=== PATIENT | female | born 1950 | race Caucasian/White ===

== ENCOUNTER 2023-04-17 10:15 | Outpatient (OUT) | payer OTHER, SELFPAY ==
--- NOTE | 2023-04-17 10:36 | XR_ITS ---
[address] [address] Patient Name: NU RIBEIRO MRN: [id number] date: 1950 Sex: F Assigned Patient Location: [facility] Current Patient Location: [facility] Accession/Order Number: [id number] Exam Date: 04/17/2023 10:28 Report Date: 04/17/2023 11:00 At the request of: GARO SCHNEIDER Procedure: XR chest 2V EXAM: CHEST 2 VIEWS HISTORY: Acute Bronchitis J20.9 history of asthma, cough for 6 weeks with shortness of breath. TECHNIQUE: PA and lateral views chest. COMPARISON: None. FINDINGS: The lungs are clear. There is no focal lung consolidation, pleural effusion or pneumothorax. There is mild peribronchial wall thickening most conspicuous in the right infrahilar and ultrasound scrotum ultrasound testicles and scrotum.] Ultrasound scrotum 4.2 x 3.6 x 2.8 cm 4.2 x 3.3 x 2.5 cm 0.64, 0.67 1.6 x 1.3 x 0.8 cm 1.3 x 0.8 x 0.8 cm there is a moderate right hydrocele large right hydrocele measuring 5.9 x 4.5 x 2.8 cm. Tiny left hydrocele. 1. Normal testicles and epididymides bilaterally. Negative for testicular torsion, orchitis epididymitis, or testicular mass. 2. Moderate to large right hydrocele. Moderate to large tiny left hydrocele. 3. Negative for varicocele.. Pulmonary vasculature is within normal limits. The cardiomediastinal silhouette is normal. XR/XR chest 2V IMPRESSION: 1. Probable bronchitis that may be acute or chronic. Lungs clear without consolidation or effusion. Recommend followup imaging if symptoms worsen or persist. Electronically authenticated by: SYMONE HURTADO Date: 04/17/2023 11:00
== END 2023-04-17 10:16 | disposition home or self-care (01) ==
PROVIDERS: PCP Family Medicine; Visit Provider Internal Medicine
DX: J20.9 Acute bronchitis, unspecified (principal)
CPT/HCPCS: 71046

== ENCOUNTER 2023-04-29 14:46 | Outpatient (OUT) | payer OTHER, SELFPAY ==
--- NOTE | 2023-04-29 14:49 | XR_ITS ---
[address] [address] Patient Name: NU RIBEIRO MRN: [id number] date: 1950 Sex: F Assigned Patient Location: [facility] Current Patient Location: Accession/Order Number: [id number] Exam Date: 04/29/2023 14:50 Report Date: 04/30/2023 07:41 At the request of: GARO SCHNEIDER Procedure: XR chest 2V EXAM: Chest x-ray HISTORY: . Acute Bronchitis J20.8 . COMPARISON: 04/17/2023 TECHNIQUE: Frontal and lateral chest FINDINGS: Heart and vascularity are unremarkable. Lungs are free of focal infiltrates. No effusions are noted. Mild spondylosis of the spine is noted. XR/XR chest 2V IMPRESSION: No acute heart or lung disease identified. Electronically authenticated by: DEVAN BRITT Date: 04/30/2023 07:41
== END 2023-04-29 14:47 | disposition home or self-care (01) ==
LOC: RAD 14:46
PROVIDERS: Visit Provider Internal Medicine
DX: J20.9 Acute bronchitis, unspecified (principal)
CPT/HCPCS: 71046

== ENCOUNTER 2023-04-30 15:17 | Outpatient (OUT) | payer OTHER, SELFPAY ==
--- NOTE | 2023-04-30 15:20 | CT_ITS ---
The [address] [address] Patient Name: NU RIBEIRO MRN: [id number] date: 1950 Sex: F Assigned Patient Location: CT Current Patient Location: CT Accession/Order Number: [id number] Exam Date: 04/30/2023 15:30 Report Date: 04/30/2023 16:14 At the request of: GARO SCHNEIDER Procedure: CT chest wo con EXAM: CT chest wo con HISTORY: chronic cough R05.3 COMPARISON: Chest x-ray dated 04/29/[address] dated 03/21/2021. TECHNIQUE: Multiple axial images of the chest are obtained without the use of IV contrast material. Coronal and sagittal reformatted sequences are submitted for review. FINDINGS: The heart size is normal. There is no evidence for pericardial effusion. The thoracic aorta is normal in course and caliber. There is no evidence for thoracic aortic aneurysm. There is no evidence for pleural effusion or pneumothorax. No significant enlarged hilar, mediastinal or axillary adenopathy is seen. A 2 mm nonspecific noncalcified subpleural nodule is seen in the posteromedial right lung base, which was not definitely visualized on prior chest CT of 03/21/2021. No focal consolidation is seen. The visual chest wall appears unremarkable. No acute abnormality is seen in the visualized upper abdomen. No acute osseous abnormality seen. CT/CT chest wo con IMPRESSION: No evidence for acute abnormality. A 2 mm nonspecific noncalcified subpleural nodule is seen in the posteromedial right lung base, which was not definitely visualized on prior chest CT of 03/21/2021. No focal consolidation is seen. Electronically authenticated by: TARA PHELAN Date: 04/30/2023 16:14
== END 2023-04-30 15:18 | disposition home or self-care (01) ==
LOC: CT 15:17
PROVIDERS: Visit Provider Internal Medicine
DX: R05.3 Chronic cough (principal)
CPT/HCPCS: 71250

== ENCOUNTER 2023-06-06 13:31 | Outpatient (OUT) | payer OTHER, SELFPAY ==
--- OUTSIDE RECORDS SUMMARY | 2023-06-06 13:36 | XMS_ITS | CCD ---
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 Name Role Phone TRIPP PORTILLO Unavailable Unavailable LAZ PORTILLO Unavailable Unavailabl TRIPP Herrera Unavailable Unavailable LAZ PORTILLO Unavailable Unavailabl Sulaiman Osorio Primary Care Provider [phone] Laz Portillo Primary Care Provider Laz Portillo MD Primary Care Provider Laz Portillo MD Primary Care Provider Laz Portillo MD Primary Care Provi jesus YIN, DR ADORNO Primary Care Unavailable SHERRY WILKINSON Admitting Unavailable SHERRY WILKINSON Attending Unavailable KIM PHELAN Consulting Unavailable DEREK VALDEZ Consulting Unavailable DR ALLYSSA LOPEZ Admitting Unavailable JOHN, DR ALLYSSA Romero Attending Unavailable YIN, DR ADORNO Primary Care Unavailable DR KRANTHI NIXON Consulting Unavailable DR ALLYSSA LOPEZ Consulting Unavailable SAMSA ., GARO Admitting Unavailable SAMSA ., GARO Attending Unavailable YIN, DR ADORNO Primary Care Unavailable SAMSA ., GARO Consulting Unavailable Татьяна Guerrero Unavailable Laz Portillo MD Primary Care Provider Laz Portillo MD Primary Care Provi jesus LAZ PORTILLO Primary Care Unavailabl e BASURTO, JOSESITO Referring Unavailable BASURTO, JOSESITO Admitting Unavailable BASURTO, JOSESITO Attending Unavailable LAZ PORTILLO Primary Care Unavailabl e BASURTO, JOSESITO Admitting Unavailable BASURTO, JOSESITO Attending Unavailable [facility] Primary Care Unavailabl e GATO CANO Referring Unavailable [facility] Primary Care Unava ilable GATO CANO Referring Unavailable ALLYSSA LOPEZ Attending Unavailable [facility] Unava ilable [facility] Primary Care Unava ilable GATO CANO Referring Unavailable GATO CANO Attending Unavailable [facility] Primary Care Unava ilable Medications Current Medications Medication Drug Class(es) Dates Sig (Normalized) Sig (Original) calcium chloride 0.0014 meq/ml / potassium chloride 0.004 meq/ml / sodium chloride 0.103 meq/ml / sodium lactate 0.028 meq/ml injectable solution (2 sources) Start: 08-16-2022 lactated ringers IV soln infusion Start: 07-12-2022 lactated ringe rs IV soln infusion cephalexin 500 mg oral capsule (2 sources) Cephalosporin Antibacterial Start: 07-08-2018 cephALEXin (KEFLEX) 500 MG capsule Indications: Malignant neoplasm of upper-outer quadrant of left female breast, unspecified estrogen receptor status (HCC) 500 mgTake three times daily 21 capsule 0 07/08/2018 Active ciprofloxacin 3 mg/ml ophthalmic solution (2 sources) Quinolone Antimicrobial Start: 08-16-2022 ciprofloxacin (CILOXAN) 0.3 % ophthalmic solution 1 drop Start: 07-12-2022 End: 07-12-2022 ciprofloxacin (CILOXAN) 0.3 % ophthalmic solution 1 drop 1 ml diphenhydrAMINE hydrochloride 50 mg/ml cartridge (1 source) Histamine-1 Receptor Antagonist Start: 08-16-2022 End: 08-17-2022 diphenhydrAMINE (BENADRYL) injection 12.5 mg dorzolamide 20 mg/ml ophthalmic solution (1 source) Carbonic Anhydrase Inhibitor Dorzolamide HCl 2 % Ophthalmic for 25 Days Active 1 ml fentaNYL 0.05 mg/ml injection (2 sources) Opioid Agonist Start: 08-16-2022 fentaNYL (SUBL IMAZE) injection 50 mcg Start: 08-16-2022 fentaNYL (SUBL IMAZE) injection 25 mcg fluticasone propionate 0.05 mg/actuat metered dose nasal spray (1 source) Corticosteroid Start: 05-30-2022 take 2 spray(s) nasal route once daily Fluticasone Propionate 50 MCG/ACT 2 sprays Nasally Once a day for 14 day(s) May, Active ketorolac tromethamine 5 mg/ml ophthalmic solution (2 sources) Nonsteroidal Anti-inflammatory Drug, Cyclooxygenase Inhibitor Start: 08-16-2022 ketorolac (ACULAR) 0.5 % ophthalmic solution 1 drop Start: 07-12-2022 End: 07-12-2022 ketorolac (ACULAR) 0.5 % oph thalmic solution 1 drop LORazepam 0.5 mg oral tablet (1 source) Benzodiazepine Start: 11-25-2020 End: 12-25-2020 take 1 tablet by mouth twice daily LORazepam (ATIVAN) 0.5 MG tablet Indications: Anxiety Take 1 tablet by mouth 2 times daily for 30 days. 60 tablet 0 11/25/2020 12/25/2020 Active omeprazole 10 mg delayed release oral capsule (10 sources) Proton Pump Inhibitor Start: 04-27-2021 take 1 capsule by mouth once daily omeprazole (PRILOSEC) 10 MG delayed release capsule Take 1 capsule by mouth daily 90 capsule 0 04/27/2021 Active take 1 capsule by mouth once adam ly omeprazole (PRILOSEC) 10 MG delayed release capsule Take 10 mg by mouth daily 0 Active 2 ml ondansetron 2 mg/ml injection (1 source) Serotonin-3 Receptor Antagonist Start: 08-16-2022 End: 08-17-2022 ondansetron (ZOFRAN) injection 4 mg phenylephrine hydrochloride 25 mg/ml ophthalmic solution (2 sources) alpha-1 Adrenergic Agonist Start: 08-16-2022 phenylephrine (MYDFRIN) 2.5 % ophthalmic solution 1 drop Start: 07-12-2022 End: 07-12-2022 phenylephrine (MYDFRIN) 2.5 % ophthalmic solution 1 drop predniSONE 20 mg oral tablet (1 source) Start: 05-30-2022 take 1 tablet by mouth every twelve hours predniSONE 20 MG 1 tablet Orally 2 times a day for 5 day(s) May, Active 5 ml sodium chloride 9 mg/ml injection (15 sources) Start: 08-16-2022 sodium chlorid e flush 0.9 % injection 5-40 mL Start: 08-16-2022 0.9 % sodium c hloride infusion Start: 08-16-2022 sodium chlorid e flush 0.9 % injection 5-40 mL Start: 07-12-2022 0.9 % sodium c hloride infusion Start: 07-12-2022 sodium chlorid e flush 0.9 % injection 5-40 mL tetracaine hydrochloride 5 mg/ml ophthalmic solution (2 sources) Yoko Local Anesthetic Start: 08-16-2022 tetracaine (TETRAVISC) 0.5 % ophthalmic solution 1 drop Start: 07-12-2022 End: 07-12-2022 tetracaine (TETRAVISC) 0.5 % ophthalmic solution 1 drop tropicamide 10 mg/ml ophthalmic solution (2 sources) Anticholinergic Start: 08-16-2022 tropicamide (M YDRIACYL) 1 % ophthalmic solution 1 drop Start: 07-12-2022 End: 07-12-2022 tropicamide (MYDRIACYL) 1 % ophthalmic solution 1 drop valACYclovir 500 mg oral tablet (2 sources) Herpesvirus Nucleoside Analog DNA Polymerase Inhibitor, Herpes Simplex Virus Nucleoside Analog DNA Polymerase Inhibitor, Herpes Zoster Virus Nucleoside Analog DNA Polymerase Inhibitor Start: 10-04-2018 take 1 tablet by mouth every twelve hours valACYclovir (VALTREX) 500 MG tablet TAKE 1 TABLET BY MOUTH EVERY 12 HOURS FOR 7 DAYS 0 10/04/2018 Active Completed/Discontinued Medications Medication Drug Class(es) Dates Sig (Normalized) Sig (Original) [id number] 200 actuat albuterol 0.09 mg/actuat metered dose inhaler (13 sources) beta2-Adrenergic Agonist take 2 puff(s) by inhalation every four hours as needed for wheezing albuterol sulfate HFA 108 (90 Base) MCG/ACT inhaler Inhale 2 puffs into the lungs every 4 hours as needed for Wheezing or Shortness of Breath 0 Suspended take 2 puff(s) by in halation every four hours as needed for wheezing albuterol sulfate HFA 108 (90 Base) MCG/ACT inhaler Inhale 2 puffs into the lungs every 4 hours as needed for Wheezing or Shortness of Breath 0 Active anastrozole 1 mg oral tablet (18 sources) Aromatase Inhibitor Start: 08-07-2018 End: 07-20-2022 take 1 tablet by mouth once daily anastrozole (ARIMIDEX) 1 mg tablet Indications: Malignant neoplasm of upper-outer quadrant of left breast in female, estrogen receptor positive (HCC) Take 1 tablet by mouth once daily. 90 tablet 3 07/20/2022 Active Comment on above: Take 1 tablet by ramon th once daily. Apoaequorin 10 MG CAPS (1 source) Start: 07-25-2022 End: 10-23-2022 take 1 capsule by mouth once daily Apoaequorin 10 MG CAPS Indications: Forgetfulness Take 10 mg by mouth daily 90 capsule 1 07/25/2022 10/23/2022 Suspended 5 ml bupivacaine hydrochloride 5 mg/ml injection (2 sources) Amide Local Anesthetic Start: 08-16-2022 End: 08-16-2022 bupivacaine (PF) (MARCAINE) 0.5 % injection 1 mg Start: 07-12-2022 End: 07-12-2022 bupivacaine (PF) (MARCAINE) 0.5 % injection 1 mg calcium carbonate 625 mg / cholecalciferol 125 unt oral tablet (2 sources) Vitamin D Start: 07-20-2022 take 1 tablet by mouth twice daily calcium-cholecalciferol, D3, (OSCAL+D 250) 250 mg-3.125 mcg (125 unit) per tablet Indications: Malignant neoplasm of upper-outer quadrant of left breast in female, estrogen receptor positive (HCC) , halfway (current) use of aromatase inhibitors Take 1 tablet by mouth twice daily. 180 tablet 3 07/20/2022 Active Comment on above: Take 1 tablet by ramon th twice daily. cranberry extract-multivitami n 500 mg/5 gram pwpk (5 sources) cranberry extract-multivitamin 500 mg/5 gram pwpk Take by mouth. 0 Active Comment on above: Take by mouth. Cranberry preparation (13 sources) Non-Standardiz ed Food Allergenic Extract, Non-Standardiz ed Plant Allergenic Extract take 1 tablet by mouth once daily CRANBERRY PO Take 1 tablet by mouth daily 0 Suspended take 1 tablet by mouth once candi y CRANBERRY PO Take 1 tablet by mouth daily 0 Active FLUoxetine 40 mg oral capsule (17 sources) Serotonin Reuptake Inhibitor Start: 04-11-2018 End: 08-13-2022 take 1 capsule by mouth in the morning FLUoxetine (PROZAC) 40 MG capsule Take 1 capsule by mouth in the morning 90 capsule 0 05/15/2022 Suspended Comment on above: Take 40 mg by mouth. 120 actuat fluticasone propionate 0.115 mg/actuat / salmeterol 0.021 mg/actuat metered dose inhaler (5 sources) Corticosteroid, beta2-Adrenergic Agonist Start: 09-20-2021 take 2 puff(s) by mouth twice daily ADVAIR HFA 115-21 mcg/actuation inhaler INHALE 2 PUFFS BY MOUTH TWICE DAILY RINSE MOUTH AFTER USE 0 06/20/2022 Active Comment on above: INHALE 2 PUFFS BY [facility] TWICE DAILY RINSE MOUTH AFTER USE hydroCHLOROthiazide 12.5 mg / lisinopril 10 mg oral tablet (16 sources) Thiazide Diuretic, Angiotensin Converting Enzyme Inhibitor Start: 07-25-2022 take 1 tablet by mouth once daily lisinopril-hydro CHLOROthiazide (PRINZIDE;ZESTOR ETIC) 10-12.5 MG per tablet Indications: Hypertension, unspecified type Take 1 tablet by mouth daily 90 tablet 1 07/25/2022 Suspended Start: 04-11-2018 take 1 tablet by ramon once daily lisinopril-hydrochlorothiazide (PRINZIDE,ZESTORETIC) 20-12.5 mg per tablet Take 1 tablet by mouth once daily. 0 04/11/2018 Active Comment on above: Take 1 tablet by ramon once daily. ibuprofen 800 mg oral tablet (14 sources) Nonsteroidal Anti-inflammatory Drug Start: 09-24-2016 ibuprofen (ADVIL;MOTRIN) 800 MG tablet Indications: Chronic joint pain Daily for back pain 180 tablet 0 04/26/2022 Suspended 10 ml lidocaine hydrochloride 10 mg/ml injection (2 sources) Antiarrhythmic, Amide Local Anesthetic Start: 08-16-2022 End: 08-16-2022 lidocaine PF 1 % injection 1 mL Start: 07-12-2022 End: 07-12-2022 lidocaine PF 1 % injection 1 mL lisinopril 40 mg oral tablet (2 sources) Angiotensin Converting Enzyme Inhibitor lisinopril (ZESTRIL) 40 mg tablet Take 40 mg by mouth. 0 Active Comment on above: Take 40 mg by mouth. 24 hr metoprolol succinate 25 mg extended release oral tablet (4 sources) beta-Adrenergic Paz Start: take 1 tablet by mouth once daily metoprolol succinate (TOPROL XL) 25 MG extended release tablet Indications: Hypertension, unspecified type Take 1 tablet by mouth daily 30 tablet 3 07/25/2022 Suspended Start: 09-28-2020 take 1 tablet by ramon th in the morning metoprolol tartrate (LOPRESSOR) 25 MG tablet Take 1 tablet by mouth in the morning and 1 tablet before bedtime. 180 tablet 0 12/22/2021 Active multivitamin tablet (5 sources) multivitamin tab let Take by mouth. 0 Active Comment on above: Take by mouth. Problems Active Problems Problem Classification Problem Date Documented Da te Episodic/Chronic Asthma (4 sources) Severe persistent asthma, uncomplicated; Translations: [SEVERE PERSIST ASTHMA UNCOMPLICATED] Onset: 02-20-2022 Chronic Cancer of breast (20 sources) Malignant neoplasm of upper-outer quadrant of female breast; Translations: [Malignant neoplasm of upper-outer quadrant of left female breast] Onset: 06-24-2018 02-03-2020 Chronic Cancer of breast (1 source) Intraductal carcinoma in situ of left breast; Translations: [Cancer of breast, intraductal, left] Cataract (4 sources) Unspecified cataract; Translations: [Age-related nuclear cataract, left eye] Onset: 07-12-2022 Chronic Cataract (2 sources) Cataract; Translations: [LEFT EYE NUCLEAR SCLEROTIC CATARACT] Onset: 07-05-2022 Disorders of lipid metabolism (13 sources) Hyperlipidemia; Translations: [Hyperlipidemia, unspecified] 01-23-2013 Chronic Essential hypertension (19 sources) Hypertensive disorder; Translations: [Essential (primary) hypertension] Onset: 06-24-2018 01-23-2013 Chronic Malaise and fatigue (2 sources) Fatigue; Translations: [Other fatigue] Episodic Mood disorders (13 sources) Depressive disorder; Translations: [Major depressive disorder, single episode, unspecified] 01-23-2013 Chronic Other bone disease and musculoskeletal deformities (8 sources) Osteopenia; Translations: [Other specified disorders of bone density and structure, unspecified site] Onset: 03-23-2021 Episodic Other connective tissue disease (1 source) Swelling of limb; Translations: [Swelling of limb] Episodic Other non-traumatic joint disorders (1 source) Rotator cuff arthropathy of left shoulder; Translations: [Rotator cuff arthropathy of left shoulder] Other screening for suspected conditions (not mental disorders or infectious disease) (1 source) Mammography abnormal; Translations: [Abnormal mammogram] Episodic Other upper respiratory infections (1 source) Acute sinusitis, unspecified Episodic Syncope (1 source) Syncope; Translations: [Syncope and collapse] Episodic Unclassified (1 source) Unspecified lump in the left breast, unspecified quadrant; Translations: [Unspecified lump in the left breast, unspecified quadrant] Onset: 12-26-2017 Past or Other Problems Problem Classification Problem Date Documented Da te Episodic/Chronic Cancer of breast (1 source) History of malignant neoplasm of breast; Translations: [History of breast cancer] Episodic E Codes: Struck by; against (1 source) Striking against or struck by other objects, initial encounter; Translations: [STRIKING AGNST/STRUCK OTH OBJ INIT] Onset: 01-30-2022 Episodic Fracture of lower limb (2 sources) Nondisplaced fracture of third metatarsal bone, left foot, initial encounter for closed fracture; Translations: [Nondisplaced fracture of fourth metatarsal bone, left foot, initial encounter for closed fracture] Onset: 01-30-2022 Episodic Nonmalignant breast conditions (1 source) Breast lump; Translations: [Lump in female breast] Episodic Other bone disease and musculoskeletal deformities (1 source) Other specified disorders of bone density and structure, unspecified site; Translations: [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 therapy] Onset: 03-23-2021 Episodic Other connective tissue disease (3 sources) Pain in left foot; Translations: [PAIN IN LEFT FOOT] Onset: 01-28-2022 Episodic Residual codes; unclassified (2 sources) Estrogen receptor positive status [ER+]; Translations: [ESTROGEN RECEPTOR POSITIVE STATUS] Onset: 06-24-2018 Episodic Unclassified (1 source) Contact with and (suspected) exposure to covid-19 Z20.822 Results Test Name Value Interpretation Reference Range Facility CBC W Auto Differential pane l (Bld)on 01-11-2023 Basophils (Bld) [#/Vol] 0.05 10*3/uL Normal <0.11 [facility] Comment on above: Order Comment: Speci men Type: BLOOD SPECIMEN Ordering Facility: [facility] Address: [address] [place] [id number] Performed By: #### 5 7021-8 #### [facility] CLIA [id number] [address] [place] [address]397 Basophils/100 WBC (Bld) 0.7 % Normal [facility] Comment on above: Order Comment: Speci men Type: BLOOD SPECIMEN Ordering Facility: [facility] Address: [address] [address] Performed By: #### 5 7021-8 #### [facility] CLIA [id number] [address] [place] [address] Differential cell count method Nom (Bld) Auto Normal [facility] Comment on above: Order Comment: Speci men Type: BLOOD SPECIMEN Ordering Facility: [facility] Address: [address] [address] Performed By: #### 5 7021-8 #### [facility] CLIA [id number] [address] [place] [address] Eosinophils (Bld) [#/Vol] 0.50 10*3/uL High <0.46 [facility] Comment on above: Order Comment: Speci men Type: BLOOD SPECIMEN Ordering Facility: [facility] Address: [address] [address] Performed By: #### 5 7021-8 #### [facility] CLIA [id number] [address] [place] [address]298 Eosinophils/100 WBC (Bld) 7.4 % Normal [facility] Comment on above: Order Comment: Speci men Type: BLOOD SPECIMEN Ordering Facility: [facility] Address: [address] [address] Performed By: #### 5 7021-8 #### [facility] CLIA [id number] [address] [place] [address] Erythrocyte distribution width (RBC) [Ratio] 12.8 % Normal 11.5-15.0 [facility] Comment on above: Order Comment: Speci men Type: BLOOD SPECIMEN Ordering Facility: [facility] Address: [address] [address] Performed By: #### 5 7021-8 #### [facility] CLIA [id number] [address] [place] [address] Hematocrit (Bld) [Volume fraction] 36.8 % Normal 36.0-46.0 [facility] Comment on above: Order Comment: Speci men Type: BLOOD SPECIMEN Ordering Facility: [facility] Address: [address] [place] [address] Performed By: #### 5 7021-8 #### [facility] CLIA [id number] [address] [place] [address] Hemoglobin (Bld) [Mass/Vol] 12.1 g/dL Normal 11.5-15.5 [facility] Comment on above: Order Comment: Speci men Type: BLOOD SPECIMEN Ordering Facility: [facility] Address: [address] [place] [address] Performed By: #### 5 7021-8 #### [facility] CLIA [id number] [address] [place] [address]57 Immature granulocytes (Bld) [#/Vol] 10*3/uL Normal <0.10 [facility] Comment on above: Order Comment: Speci men Type: BLOOD SPECIMEN Ordering Facility: [facility] Address: [address] [place] [address] Performed By: #### 5 7021-8 #### [facility] CLIA [id number] [address] [place] [address]771 Immature granulocytes/100 WBC (Bld) 0.1 % Normal [facility] Comment on above: Order Comment: Speci men Type: BLOOD SPECIMEN Ordering Facility: [facility] Address: [address] [place] [address] Performed By: #### 5 7021-8 #### [facility] CLIA [id number] [address] [place] [address]9906 Lymphocytes (Bld) [#/Vol] 1.84 10*3/uL Normal 1.00-4.00 [facility] Comment on above: Order Comment: Speci men Type: BLOOD SPECIMEN Ordering Facility: [facility] Address: [address] [address] Performed By: #### 5 7021-8 #### [facility] CLIA [id number] [address] [place] [address]84 Lymphocytes/100 WBC (Bld) 27.3 % Normal [facility] Comment on above: Order Comment: Speci men Type: BLOOD SPECIMEN Ordering Facility: [facility] Address: [address] [address] Performed By: #### 5 7021-8 #### [facility] CLIA [id number] [address] [place] [address] 62188 MCH (RBC) [Entitic mass] 28.7 pg Normal 26.0-34.0 [facility] Comment on above: Order Comment: Speci men Type: BLOOD SPECIMEN Ordering Facility: [facility] Address: [address] [address] Performed By: #### 5 7021-8 #### [facility] CLIA [id number] [address] [place] [address] 25849 MCHC (RBC) [Mass/Vol] 32.9 g/dL Normal 30.5-36.0 [facility] Comment on above: Order Comment: Speci men Type: BLOOD SPECIMEN Ordering Facility: [facility] Address: [address] [address] Performed By: #### 5 7021-8 #### [facility] CLIA [id number] [address] [place] [address] 25898 MCV (RBC) [Entitic vol] 87.4 fL Normal 80.0-100.0 [facility] Comment on above: Order Comment: Speci men Type: BLOOD SPECIMEN Ordering Facility: [facility] Address: [address] [address] Performed By: #### 5 7021-8 #### [facility] CLIA [id number] [address] [place] [address] 72167 Monocytes (Bld) [#/Vol] 0.44 10*3/uL Normal <0.87 [facility] Comment on above: Order Comment: Speci men Type: BLOOD SPECIMEN Ordering Facility: [facility] Address: [address] [address] Performed By: #### 5 7021-8 #### [facility] CLIA [id number] [address] [place] [address] 00766 Monocytes/100 WBC (Bld) 6.5 % Normal [facility] Comment on above: Order Comment: Speci men Type: BLOOD SPECIMEN Ordering Facility: [facility] Address: [address] [address] Performed By: #### 5 7021-8 #### [facility] CLIA [id number] [address] [place] [address] 27692 Neutrophils (Bld) [#/Vol] 3.89 10*3/uL Normal 1.45-7.50 [facility] Comment on above: Order Comment: Speci men Type: BLOOD SPECIMEN Ordering Facility: [facility] Address: [address] [address] Performed By: #### 5 7021-8 #### [facility] CLIA [id number] [address] [place] [address] 16393 Neutrophils/100 WBC (Bld) 58.0 % Normal [facility] Comment on above: Order Comment: Speci men Type: BLOOD SPECIMEN Ordering Facility: [facility] Address: [address] Performed By: #### 5 7021-8 #### [facility] CLIA [id number] [address] [place] [address] 30980 Nucleated RBC (Bld) [#/Vol] 10*3/uL Normal <0.01 [facility] Comment on above: Order Comment: Speci men Type: BLOOD SPECIMEN Ordering Facility: [facility] Address: [address] Performed By: #### 5 7021-8 #### [facility] CLIA [id number] [address] [place] [address] Nucleated RBC/100 WBC (Bld) [Ratio] 0.0 /100 WBC Normal [facility] Comment on above: Order Comment: Speci men Type: BLOOD SPECIMEN Ordering Facility: [facility] Address: [address] [place] [address] Performed By: #### 5 7021-8 #### [facility] CLIA [id number] [address] [place] [address] 00384 Platelet mean volume (Bld) [Entitic vol] 9.6 fL Normal 9.0-12.7 [facility] Comment on above: Order Comment: Speci men Type: BLOOD SPECIMEN Ordering Facility: [facility] Address: [address] [place] [address] Performed By: #### 5 7021-8 #### [facility] CLIA [id number] [address] [place] [address] 15874 Platelets (Bld) [#/Vol] 226 10*3/uL Normal 150-400 [facility] Comment on above: Order Comment: Speci men Type: BLOOD SPECIMEN Ordering Facility: [facility] Address: [address] [place] [address] Performed By: #### 5 7021-8 #### [facility] CLIA [id number] [address] [place] [address] 52119 RBC (Bld) [#/Vol] 4.21 10*6/uL Normal 3.90-5.20 [facility] Comment on above: Order Comment: Speci men Type: BLOOD SPECIMEN Ordering Facility: [facility] Address: [address] [place] [address] Performed By: #### 5 7021-8 #### [facility] CLIA [id number] [address] [place] [address] 13712 WBC (Bld) [#/Vol] 6.73 10*3/uL Normal 3.70-11.00 [facility] Comment on above: Order Comment: Speci men Type: BLOOD SPECIMEN Ordering Facility: [facility] Address: [place] [address] Performed By: #### 5 7021-8 #### [facility] CLIA [id number] [address] [place] [address] 42365 CNOVSPon 01-11-2023 CNOVSP Visit (SP) Office (HEMASA) -------- NATASHA RIBEIRO ([id number]) 1950 F Date Time Provider Department 01/11/23 2:00 PM ALLYSSA LOPEZ During your visit today, we recorded the following information about you: Temperature Pulse Respiration Blood pressure 97.7 degrees 75/minute 16/minute 125/59 Weight Height 73.8 kg 1.613 m Allyssa Lopez APRN.[employer] 01/11/2023 3:21 PM Signed PATIENT NAME: Natasha Ribeiro DATE: January 11, 2023 (John) Some elements in this clinic note that are critical to medical decision making have been carefully reviewed and included from a prior clinic note dated: July 20, 2022. (Dr. Cano) PRIMARY CARE PHYSICIAN: Dr. Laz Portillo OTHER PHYSICIANS: Dr. Bronson, Dr. Wyman, Dr. Lake CC: This is a 72 year old female with a history of breast cancer s/p adjuvant RT 09/25/18 ASSESSMENT: 1. Malignant neoplasm of upper-outer quadrant of left breast in female, estrogen receptor positive (HCC) - ICD9: 174.4, V86.0, ICD10: C50.412 Stage IA (T1b, N0, M0) invasive ductal carcinoma of the left breast diagnosed May 2018 (lumpectomy 05/29/2018). Pathology on the resected specimen revealed a grade 1 multifocal invasive ductal carcinoma, largest invasive component 0.8 cm. ER/VA positive, HER-2 negative, Oncotype recurrence score low (8). Surgical margins negative. The patient underwent a left axillary sentinel node procedure 07/08/2018, and 0 of 15 lymph nodes were involved. Monoallelic mutation of PALB2 gene - ICD9: V84.01, V84.89, V84.09, ICD10: Z15.01, Z15.89, Z15.09 Heterozygous PALB2 mutation of unclear significance identified on INVITAE genetic analysis 07/08/2018. Per medical genetics this mutation is not considered deleterious. Because of her excellent prognosis it was felt that adjuvant chemotherapy was not indicated. The patient received adjuvant radiation therapy 08/27/2018 - 09/25/2018. The patient started adjuvant hormonal therapy with anastrozole 1 mg daily September 2018, with plans to take for 5 years as tolerated. At this time she has no evidence of disease. 2. Endocrine therapy induced osteopenia - 02/2021 PLAN: Continue Arimidex. Will start Zometa today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 ZXM7 I76mx4P6AYQjNQOrOHA7wZI6 lX0wqYoqfjlocSKfyFfhipEn bZlxHUwsZOxkB193ERDfgEak PlBh eWVyOjwvdGQ+HL57mf65O3Lo PyfkVsf2LMOnTMG7eTY7zA8r FVNbGUjuz1U1lEZ9J5ErfxVw ci1j b2x (more content not included)... [facility] Coding Summary HTMLBase 64 DddlyvqhRRr4bUs+PGhlYWQ+ GR3NLZQmN98pvTOisD3WG1iD LM6RNHQJPZEAPD0NTU5czTS8 QUbgM6ZrryGv JxcntZNsNS67LSy0GCQ2tOua ZQuqlF2naMUjO0e8YkKcLH79 uC63ELcrXRJmZbR1LtFoorpa bWFy A2jgLsWjdZJyPhl+PHRhYmxl IHdpZHRoPScxMDAlJyBzdHls IZ7wMq2mCLVqEFWdyIjkqRXq OiBj g0jyLBUvNJeuCC0hpKmhI9Xp sOR0OEKpm3i8Ea34qKG+PHRk THK6bIecRZmdv582XjXlm3wz IDM3 mQYnABksIOK1I11xv3I3WNFj PAFcTAL0kZF4oZ6gbGkrwsud C4XisYYsPgP4TZY6hWIifA1t bGln djgfgL3rYet+H68GRD8ZDTOG IH4MHay4H0NwLeayyYK+PC90 CAVlHD18rTCdwTBxu4kmbVu1 JzEw ZHDpUVS7wUdkVIsci1YxZJSf M12epSYoc6Z6AHGotHrnkKTy FcWtlYB5zN3oRMqwnklpc3ua dzsn Znfwv5pwdn01fO06V62jXBhd ONKePZY0SPCkNWFklMlrdm2e iR1wPv3+XTowy7luk6rasWk0 IjIw KFGtdzWtfMxxTOX0j8IcTb11 F9DjzAarw1PkBzn8qi11kCWb u5P0mGR2EOndNYUyeG1tMRiu ZnQ6 YFQuScGbgK38wXIkZLjiPb5a cCmwzRspZE1cUXQbyhrkVGZr hD1xZCUnsQLajXolLG6sETFt bjtm f071GhSpXNT2BULoyFRdR7Ve jG3lWbDlQUVeGRWzF0BjgEMo PFhyV917UHwmIjT7JOYizhGt Y2Fs HRPsjVwlQjL3m4Y2Lj9Rb1Kj ktjfDNA9MJsoSRIkChU2HhKm OgY7Y9YdYqx7AZWzvQirOC6j J3Bh CRBvwcotkfkhcZG2JHHyTTMs tP93fSDoIJgdLi4cj8E3o509 WEAiLRHftZ50Mi0fiDyoUTPz dCBU gK4gqdfyo1hnusyrGsEkFETo HQs6CTp3SYVmzOyeAqAtHTX8 HkB0YFY2sYCkaU4csBtojqbe dG9w Oyc+J08lfO5qNWL5CLH4zrkv KDIudjSsBD22HS71E4PsJvjy dGFibGU+UUXhpyEqpEkrQP6k YmFj s7bog3AdXWnuO8FuFHFqMKnw Ojc1DTZkBBL3nCA3pE7nTFUa UCzhx6F5iVE2Q4OsrjJdkb2n b2xs LAKtBYyoD85viTIje0C6BJVj mMH5MIVxdEdgExBabA03Shu+ JGIndZaus0TmAzomj9dwi1hc dGg9 QkWlVXIqmgRebVduNPH2j5Fv Xf96D21qXBfdIJXgVJKiABAb KIBtpIpxqg4zuE8iLv5+PGNv bCB3 yBR6eW9jYWHlPvI2QZilP106 NgRfgTMfUejbc0yzr7wwfRc3 LhNmTTXkbdRooLorIEK5s7Pb Lz48 N04dZPtuMPXrBHFoPDHqOVGj wXojvl3epJ3xHm5+FS2mi6vc es47gY50vKD+ZZBpURW7rObm PSdw KLGhrO6mEOkbMrA7APXfHqFr gO57dQAdNUxfJd3mdDbxaWev MS2xULBmxcxgg580QmRxa7bl IDEw lUYsKVmhGIT6L63ns5N1PCGk MQHuRYI1dGT1rF6eoMxokvxu bGVmdDsgdmVydGljYWwtYWxp Z246 IHRvcDsnPlBhdGllbnQgTmFt PXg3B3SaIhx3QZVbxJlmFJ0t lNEnKZuwVy5aqYzagSbsUU2d NTBp sjyin635FrOaa6tfJKYohAWy YSezCUT4M54rz6R6DLSfYUHz XXR1sZG6oG8wjHpfkdafcMKf dDsg ptIxuTzcZZzuMDazO440PRXv bDepNpGtzbMoEUFzgMZ8ZC10 MB77rUJkx9U4uKG4O9IbALCp bmct phxauBT4OYJlZBEgcL53Rr5g zJtzLo8uDXHjXBC5ZSDllRMu Q0NudG4hWwKvRMPzTCVgZ8Xb eHQt WRfnV968YJcpOeT4WAGvezTn P7UmLGQhdSdpImC5o7N1Qo8J E3L9XJ12CB41sJZyf5F8rWR2 J3Bh DGHxjtwxfdvhbQH0HYMiUNUo mZ39Sh0shTsfNa3fGLWfNEL3 WAAdlLRtP0QjnG2lWrMmTSTu MDAw G5FmnXPcTJckB721ANsiKpS2 IFDomtImD0WiPYPweHbrRzR8 r0J4Ms6GSLt5VJ99LH21qQVw c3R5 kBI3O1KgVFLslwhbgrmbtRT8 YUGmATWkkF94Ta5loByoVr7j NELdJGI3JQNscIFxW3SfxN9k OiAj HSUxXPPtX7PehWMmILmnI378 KRxbZaK9VFClqxIoQ1YwQEVh sNzbZjR9g1W6Pu5BTCJyIA93 IFR5 sYO4AO71EX65Z4NmBnpgmZEx bGU+PHRhYmxlIHdpZHRoPScx AAHqOxRjrMhgNB1kDx3jNKSv LWNv jBigrQDyMaXgh4xrZGDsOHvh WI6phGpuD5QkbJY7NDPki8e0 Jt48J27hJ0EqwWU+PGNvbCB3 aWR0 iN1dCjUoHjK9UGurI524VcIk dLBsUgpfe6hyr0tpjGt5QxC0 XJSkueKwdJpyFUL2f3FrMe09 Y29s IHdpZHRoPSIxNSUiIHZhbGln hq4kcW6aKo7+AOExlJH0eXS8 nG5bRcVsTsI0OMuyM543UmIx cCIv Adkhc2cac4ghsCa2CeGhBQRt miFldOaoRQK8o0XuDa00I7Ro vCnus7QbHcz8tn94rREdo6Q7 bGU9 T5LwBFNjtnmsrLNqpAxhEA7b WHTnarhtJVVjbZ3rQWTsZ6a5 PpBjMyC2ZJbjS2TvhnH2NVMg cHQg MKlrMBU7U70gq0C9DLOfKDUk IZU0gSI6fY9xbOmhsajfaMBv bRjhdfJbhFnqDKtmPRdmE435 IHRv dLftBMFmqN5zGHZwbYVcrSwt GU1hZAHvboraVysHTkUYOETM NXTMBUMNMW5PQTLQNQ86GD64 dGQg c5J6qUS2L4JwVINofqilbfsm qKW7XSNaFTAniB33tNEwDXlw Vj5bq0L8j865QXVpKZHstR16 Zm9u zXsiMTBvsCXPtY4hdufss0qg kiviXpRuNUHcWNq8INg3PJUj jWuyUzVjPSW6XrS9YLT5bRVi bC1h aCesqurvhT9sWmz+MTAvMTIv VCw2XRykgQF+AYOwKXD0hNzf FShgLHScyJ8nCHOcY7t8AwFm LjA1 WHggX9ZbGIBsavyyXu24iR7f ZaCzTyN2JMfzP1RkbkN6HUQl hWXxMNozDBL9K53vm3O8YEDv MDAw HIH9fHY5zB4lwBrmyuxizJXx sVcwyiFadYumFLjtNQvbT525 IWBxnChjVrayGPylOHQcCB81 ZD48 rWOer4V8bRZ2Y8KdATOyvsjg swbxxYY2HTRsGQJktE18xFLg EYwxXq4ww9L3t518SDPdEKPn aW47 Rm8eyGcfYIAbgIEOpY0omsda t3mmejwcKqWuGWMzIKr6HWm1 LHIevBmxJaPuKQU6JgL1DIK9 aWNh oM8shMogfezyvP8cIvs+RkVN KMcAXX17TX94sVOuk2H1rUE1 B2DdOPYpexjyiegcyXD8JIHq MDUw iP06wIQuTMhwSf2bn5C7l661 IOPiMXItnH61Ky2xnBqiYFVw fATJyX9ewswby3qkfwjdYbFa MDAw XRu8ROw6JCKebUhmSbAaZVI1 SaJ1YJX3cSQvlR8dnStaylxz rG6kYrn+PS9jwcqfmnR1VH74 ZD48 P7QuJycihQTrpZY+PHRhYmxl IHdpZHRoPScxMDAlJyBzdHls PW9xIo1aAIJhOGNerSgzwAOv OiBj a8khVWCpJYrhZR2usDijE8Gv dDY6IBGtv2w1Tw82S66kG7Il dXA+RXMegSC0cCW1rV8jQvNd IiB2 MHvdV657UlZwtYVwNdxgj5gg s9exuRe6ZwEbOZLkafUroLwx ZFL2h2IzTt64N78vNPlfZEFl PSIy UCFmWJOomNxcvn8vgM5qPd0+ KEGsgOP5eEO7gT9zXyMcOhO7 XZwgH930ZrVdrKWcMmucH42j Z3Jv dXA+SQBiTvj5SDAkcNmkVH2c vSEqEYzyQi3qNRW9ReHzVfYe SFbsH8JgDALxndkcwprnlGX1 IDAu PYCqyJ66Or9ezHqeIl8mPGPn YAR8QEEdmFLsD4FpiZ9yTeYh EUTjNAMyT1XrhOUxJSttD802 IGxl PuM3ZNWvmlPnC8RlMHSvnZtb JnB7t2I0Gp3MmLduuAZnRN0z SxFoMMc9W7LvTmh5ZCPamZkt ZT0n hNDyDYcgWk2rzDilaHkiUE6u CKImvwipe683VoPse1cvHBGy pSEqSYvoZUX0O09do4A1ILAf MDAw PQV7fUA9yN9koGlmkjxgaMGb dRhljuPbyVusWWdvQBpbH294 GMLsrQurCmKPBmo9D8AiJpw7 ZCBz zPyxBU5atMYeYClmKh6hiIvr bFgmUK0eMBAxwkkgp024UyNj s9lzQCCfjJZwGYzkLOQ9M10v b3I6 BEWuDWSrWRM9tDJ6eI4bxDtc bjogbGVmdDsgdmVydGljYWwt FMvzF766NKXlfKxjFp5CDjp9 L3Rk Mhc2ZSRbyEddGC7eeGPmGHkp Jy4waKvurJwfRF2fJMKfmppv n244WrBay4esOQZckHVkCWgf ZXM7 O82eo5D1TJSdNYXaUUM7cIE0 uR1ooMfmymlbpXZkxHtrumVh bCgjIKxiQOncX825UXEkmJvh PlBh eWVyOjwvdGQ+DW43vf21U8Nt QtzrBcd0IODsHEL8lIJ8zP4d OPNkSBlqm8B3sOO4X5EnyyTh ci1j b2x (more content not included)... [facility] Coding Summary HTMLBase 64 LtbbhntaCLh0sAh+PGhlYWQ+ KB5TCJXeP66hmGNrvS6QF6jX WF2NHFASACWQJL1WJA6feWM9 LYxoC1JgdoXq XojthXBpXG62RTd1VWM6pYud YRqesT4waDKzS4d6KxDpIB56 hH40UAijLIBuKzF9OxQmmnyc bWFy B4fmYcVeoYLyJnn+PHRhYmxl IHdpZHRoPScxMDAlJyBzdHls LQ3aWc1aZVIkEIGdpVjmzNWo OiBj u7rpUTFjDPegER1kwJufZ6Ay bNY0VDTnr5o4Jb20rNU+PHRk ZYH2rMjjKVahq954FvMwj5to IDM3 gJXsOXnyCER4K82tp5J0PWAa WJNuROG5oVR9oO2iaNsgvdeu K8AduERdLtI8LWY0qVSblO7e bGln vvnemF4dCqj+Q42RPZ9UBXOE QC1WTgl1L2EqHbwetGM+PC90 RKQiZR67gDHsaREtx2rkpPh8 JzEw DRLkRPT7kDanELrxj8JuGYLl N31lvEObb3G4UTQvoWahcBMs XkPouGH6hO3lHQlllkkin1xg dzsn Himpu9uqnn31kX42F61rSZbf WDAvWOQ8KXQgTXCieQikdq8p wN5dWg7+GMfyq7gze1vpqMv9 IjIw MVCnwkAioOnyMGN7e0WiJv60 D7SylFlcj1CxRqn0ob60zZXe k2F5eIZ9IOkbPFYroD6mPYmz ZnQ6 GNJnHmUuyA92bHNvMKbwCq4q bAjfcCzzXY5vNTFrnqaeANMl iL9wYGMdpPHgrAgqEN3bVMZe bjtm v521LmMiOZL8KZVeoAFeQ8It dF6pRgTuPCKtGDAhF4DoiLEy XEvnS584LCqmIkB3JMXkikCj Y2Fs TNHloQtgNyH0w6V7Va3Yt5Mr yvnzLQC5UWkuMELpIkE0KmWm CzW6Z6ZhPeh7TRBbsXfkHV9e J3Bh LZOhkkdxxnlkaIC2RYJkETIn jW22yJJsFTpuOu4nt3F9k399 WDUpVVNanD35Zh9bmZtxATSc dCBU xS7krkgpb6hdiwxqYmZjLFCh MTv3REc2QXLifXhkWaPqWDF8 PvI7GVR8oFQpgI4clWyasokj dG9w Oyc+H70ujF1eTLC6ZTO6yeux EMChjoTdYV77WV88D7VjLtjj dGFibGU+GOXnzoScgJqhKE0z YmFj q7xnb0SvLJbvA3LuRHSuIChp Aow6QKVsUFK4wRP7eT7gTETz SIhem9Q9uOT6J1IdkzAxvl3x b2xs KHKnSSvnE51nwKTvc5Q5XDLf sSB1CFGemVizGfWsdQ84Weu+ STFvcIbhl5ZcKcwst8bgt7an dGg9 SgUeRUHdtoCqsBuyEIR0m2Cs Ev97O70eOWtsLHPzQJCgVRXg GXXjuMnouv6woQ9nJm6+PGNv bCB3 fNK5qG7qWCSpJcI7YVyhJ288 BaNekKWlSplsz6ate0fofPr0 XxLoDSZlkuTsaOhjKRK4k8Wr Lz48 V39bUGcgAXDvBYZsYAYlEAHa mYsmmv1yxP9xQa1+MB7oq4ij kv28iN63mIH+JJHiWLT0zYso PSdw UXUkfA7fXQrlPaU6NZTwGgJc iP71sHItEUjeXh8evNzieTfr KL5xFGYsgbjaa858WrHrw4st IDEw cNKqGXyzKVX5P05gq1D8PMJm ICRiWTT6kAH9xH8maAtpbpjz bGVmdDsgdmVydGljYWwtYWxp Z246 IHRvcDsnPlBhdGllbnQgTmFt DOr7K2FtVkr1PGBcaBefAO7q qQXzORtvJf5twQhhpJyjFE0w NTBp mfiga478XxMuo2icBDVoaNKm LVymWGJ9U09fx8O0OENeOTGe GSU9oRT8zL5ykBsdcluyoHNr dDsg yfGadTizYPrtUYfvB056KLTe vJgqDiAuuwGrZMFqeES0VL11 EH04gDUfv2J0bOF1V9MaFCUi bmct kqjxrGF8AGZxTKBpsP47So5m nTzvTh7mLIEiKJP2AHIqrAVm L3EubY6kOgSfKYBlTPKmP8Mb eHQt YIdqZ203KBqmLrP0ZXRcviTl F6SjSQYbxSfpAmD8a3S3Wr1L S7M0PH15PE57nEWiq4J5eZI3 J3Bh VKKwxcijmdwlkPG7IYUeHYAb xQ68Eb0twSjyZb7hCTIhUSK5 AJCegUBaO4AsdD8xAeGpEMXf MDAw C4ButMUtVFztO864EJfdFnC7 OBJooaGaI7QqMGTjjLvoXsO9 m0F2Fk0IORu1GB16NL84wVSe c3R5 oAN6G3MiZMOxuubgoldcuGZ0 GKWbLCSwjL99Lv8sjFpiEx8i KRCnLJK9FEZilRZrA2KxmB0w OiAj HVYmEEGkD0QxgJNcQIevA703 FDxvGlP8AXGygdHaK1CdQYKo xSfnLjX5d9O4Sm6YPPSuET28 IFR5 tGK8UU76HR61I1LeDbhflFJk bGU+PHRhYmxlIHdpZHRoPScx PAXqOlMhuPmvSZ7tHs4eMHKj LWNv yAskyILcZtXcx3teHIOwBMwl PG7kpXpzM4MisHG8VSKje5x7 Jw44T97fH4QcgGB+PGNvbCB3 aWR0 zJ3zIqPuArU0QNmbJ779MaFz zKMkMexdn7mze0rqaMp6WbP2 IHKtxfPqzLcmHSC4a2YpJc97 Y29s IHdpZHRoPSIxNSUiIHZhbGln hl6dvR4hQk4+ZGTvyYF7iFQ3 lU9oPhLjSwB9YFbsI970ZrGm cCIv Blvui9tng7mwsIo5PuWvIGAi ozQitRfhXQY9d8VcEt23C2Jt hRxjn7DpAna3bu32vNEkn6V2 bGU9 Q5McFWFxsxlffCQltEebHX0d MSDtwyzzJPAqkE1fIOOcS6z8 XbBmUaG7ESlaO2SmzvZ4YFIi cHQg LLwyQMH7D30iv0F2CHRnFQYo OTW6aVJ4pJ9idSsszpabvUZm jVnkyeRydHuxSChlSBacI574 IHRv tYkkXAQclL3yOAAvkEHkgIuk LE9xOIMvbmpcKneGJuWCTPJH KQVIGXYPFO5NFCIGZT48XC64 dGQg y3L2hPA3E7GoVUSxossncdrq mTW8IRRyLNMkoE93bILyQHnf Xo2vd2D9z114XHHrCSGkyM00 Zm9u jMasHCMptHGWqT0wzbqcc1eo xpryXyBhLDCdWIt3VXk9OZMi eRzvPnPqJDX4LiB0DJF8bNFz bC1h tSgwthrswT5nHev+MTAvMTIv TCp3ZKewfUY+RLCtWKJ8nLry XRltFTFsvF8gLNVmC7z6HfOa LjA1 GPluL3TwTEGirkeeBm42bC7d DgNxLyG9JKexE0HflhA5UEJy dNPvBIrqJGX8E43zc5S3RNMe MDAw GWM5bUY2kY0ioGqwsbcleAGd kGzyijLxzBqnVGvqUPbxH171 BROxmMnsHutbYFflMHLrAP00 ZD48 qBTlf6D7hPR7R0QcCDYahiha nttukOV6MTGvWOCsmO60cNZv XXjgEc1wo0Z9p291SCGlTRDt aW47 Uh6zoLbgJCOiqVQJkH1tfadl r9hmnaihWbXnQZMpJTt1BBt4 LYEpwBruZgFrWKU2UcO3VNU6 aWNh eV6juEegdwdwcA9aYzt+RkVN JIdLOC38IS18iWZgm5L9cXW5 Q3ThTAPwxsgmrewelGW7IXJe MDUw cQ40uLRjZPqvYq3aw9A8q030 JPSqFQUgrB92Iq3kzJekLYSo bRKRcK2eliflt5dskdsmJfYk MDAw LSt6XUo2EJBwaEpaKnUtHWD0 GvM5WLL2gTRgrK6bbCgdsuio zE7tYsf+HX6lcdzhpuP8WK99 ZD48 F1KcLwaveJYxjWJ+PHRhYmxl IHdpZHRoPScxMDAlJyBzdHls EP0kNw0xZHAhBZCznNnqyOIt OiBj f3usHYTcEZdkJZ9rtKntZ1Nr hDQ4OURqm8o0On33H74iV3Cx dXA+PSRsqFL9eOD6tD4qHgNf IiB2 GOzgO430VfJhbXNjQuqca5fz k5dyzDh7LfIjCYYomhGedZwk KPA9j7CdJk32K63gNAukEYYc PSIy FCNcXCTdiKntla8clP2fMc8+ IMGqiIQ0aZO1xS0tFnQoJsX3 KSkkK230WaZfoFVsUkpzI43h Z3Jv dXA+DRTqWtk8MALxwCieCE4h cDTqUUswMr5bVKV2RqSoUmDc QMavT6NpDPAsvpdairqjbYJ8 IDAu OJSlwE33Kr8vxPwsJx5tLVYn PGA1MUFrdFUiZ1CgiI2wDkCm MYNdZNFkN2XxaPZuGIywC119 IGxl RnO7VFXcdhQhC8UzPUOrdJci GhR5w7O5Ke4NaSnmiDFyCC0y IqUuTQg4E2VsYrj4APAbvVae ZT0n tHLhRHdeDs1hsOmmeEoeEB2w OIZzlcbxz265ZlQlr4hhEHBh nJEtROzrKTY5C15ag9Q9FSDi MDAw KDF1cVG1vA2jbFhnvpbcjGEi lWlhbuJoyTlnICkyOSvdW161 IOOsuJriIfLWUnr1R2YeXtx1 ZCBz dPxfKR0yuKUxECuyDj3knDig bNesAK3ySWUbaogww851KaDa j2yqVTJyfJFmOPrhBHS7I87a b3I6 KRGcLQEyZEC9hSZ5zG4bvBed bjogbGVmdDsgdmVydGljYWwt NUawP605SUJcnPakEw7LCkj4 L3Rk Tjm7DOWmjLzkMS9dgRFbBYzv Ms1nhHtgzSrwBG1lHPWeixcf w697DhGmf7miUVBauSVfPKsy ZXM7 Z88sr9D7MRQfUJZsRCI4vHW8 zL5klXjcxaxorKYkeNkjixKy uMdlDDkvNCzkV531UCQarHyy PlBh eWVyOjwvdGQ+HZ52yy69N5Ov OxlmQhy1HPOuRFH5pFY9uJ3p NETrCEuou3V2uIV0S4OflcWz ci1j b2x (more content not included)... [facility] CT PE Chest w/ Contraston CT PE Chest w/ Contrast EXAMINATION: CT PE Chest w/ Contrast HISTORY: Shortness of breath Pulmonary embolism (PE) suspected, positive D-dimer breast cancer history with lumpectomy and axillary dissection of the left axilla COMPARISON: None available TECHNIQUE: CT angiography of the pulmonary arteries following the administration of 100 mL Omnipaque 350 intravenous contrast. Coronal and sagittal MIP (maximum intensity projection) images were performed. Dose reduction techniques were achieved by using automated exposure control and/or adjustment of mA and/or kV according to patient size and/or use of iterative reconstruction technique. FINDINGS: No evidence for acute pulmonary embolism. No thoracic aortic aneurysm or dissection. No pericardial effusion or cardiomegaly. Small hiatal hernia with mild distal esophageal wall thickening. Prior left lumpectomy and left axillary lymph node dissection. No lung consolidation, large effusions, pneumothorax, or suspicious groundglass lung infiltrates. No suspicious lung nodules or mass. No acute bony abnormality. Visualized portions upper abdomen unremarkable. IMPRESSION: No evidence for acute pulmonary embolism. No suspicious lung consolidation or infiltrates. Small hiatal hernia. Final Dictated by: Scot Kaba MD Dictated DT/TM: 03/21/21 10:56 Signed (Electronic Signature): Scot Kaba MD 03/21/21 11:01 p Technologist: [facility] Consent Formson 03-22-2021 Consent Forms [id number] TIFF [facility] ED Clinical Summaryon 2020 ED Clinical Summary [facility] - Emergency Department [address] [place], [place] [id number] ED Clinical Summary PERSON INFORMATION Name: NU RIBEIRO Age: 71 Years Sex: FEMALE : 1950 MRN: Acct#: Visit Reason: Shortness of breath; SOB Arrival: 03/21/2021 19:58:39 Discharge: 03/21/2021 23:34:00 LOS: 000 03:36 Check In: 03/21/2021 19:58:39 Checkout:03/21/2021 23:34:00 Address: [facility] [address] [facility] [address] PCP: Nicholas SNELL, Laz Romero PROVIDER INFORMATION Provider Role Assigned Unassigned Taran HIRSCH, Jadyn ED Nurse 03/21/2021 20:00:30 Marisol Leigh D.O. ED Provider 03/21/2021 20:02:48 VITALS INFORMATION Vital Sign Triage Latest Temperature Tympanic Temperature Temporal Artery Pulse Rate 66 bpm 76 bpm O2 Sat 100 % 100 % Respiratory Rate 22 br/min 16 br/min Blood Pressure /82 mmHg /82 mmHg MEDICAL INFORMATION Medications Given: Medication Dose Route aspirin 324 mg Chewed albuterol-ipratropium (DuoNeb 0.5 mg-2.5 mg/3 mL inhalation solution) 3 mL NEB methylPREDNISolone (SOLU-Medrol) 125 mg IV Push albuterol (albuterol 90 mcg/inh aerosol) 360 mcg INH albuterol-ipratropium (DuoNeb 0.5 mg-2.5 mg/3 mL inhalation solution) 3 mL NEB sodium chloride (Normal Saline Flush) 10 mL IV Push iohexol (Omnipaque 350.) 350 mg IV Push Allergy Information: No Known Medication Allergies PHYSICIAN DOCUMENTATION Patient: NU RIBEIRO Age: 71 years Sex: FEMALE : 1950 Associated Diagnoses: Asthma exacerbation; Shortness of breath Author: Marisol Leigh D.O. Basic Information Time seen: Date & time 03/21/2021 20:04:00. History source: Patient. Arrival mode: Private vehicle. History limitation: None. History of Present Illness 71-year-old female presents for evaluation of 2 to 3 days of increasing shortness of breath. She has a history of asthma. States she can feel herself wheezing. She states she has not had to use her inhalers in many years. She was able to find her old inhaler and use it. She also took one of her husbands diuretics. She states she used to take a blood pressure medicaiton with a diuretic in it but doesnt anymore. She states that she has intermittent left-sided chest pain. She denies any dizziness or syncope. Chest pain is not radiating. She does not smoke. She has been vaccinated against COVID-19. She denies any fever, change in her taste and smell. She denies any abdominal pain, nausea vomiting or diarrhea. Review of Systems Constitutional symptoms: Negative except as documented in HPI. Skin symptoms: Negative except as documented in HPI. Eye symptoms: Negative except as documented in HPI. ENMT symptoms: Negative except as documented in HPI. Respiratory symptoms: Shortness of breath, cough, wheezing. Cardiovascular symptoms: Chest pain. Gastrointestinal symptoms: Negative except as documented in HPI. Genitourinary symptoms: Negative except as documented in HPI. Musculoskeletal symptoms: Negative except as documented in HPI. Neurologic symptoms: Negative except as documented in HPI. Psychiatric symptoms: Negative except as documented in HPI. Endocrine symptoms: Negative except as documented in HPI. Hematologic/Lymphatic symptoms: Negative except as documented in HPI. Allergy/immunologic symptoms: Negative except as documented in HPI. Additional review of systems information: All other systems reviewed and otherwise negative. Health Status Allergies: Allergic Reactions (All) No Known Medication Allergies. Medications: (Selected) Documented Medications Documented PROzac 40 mg oral capsule: 40 mg = 1 cap(s), PO, Daily, 0 Refill(s) anastrozole 1 mg oral tablet: 1 mg = 1 tab(s), PO, Daily, 0 Refill(s) cranberry oral capsule: 0 Refill(s) hydrochlorothiazide-lisbeth nopril 12.5 mg-20 mg oral tablet: 1 tab(s), PO, Daily, 0 Refill(s). Past Medical/ Family/ Social History Medical history: No active or resolved past medical history items have been selected or recorded.. Surgical history: No active procedure history items have been selected or recorded.. Family history: No family history items have been selected or recorded.. Social history: Social & Psychosocial Habits Tobacco 05/20/2020 Smoking tobacco use: Never (less than 100 in l Electronic Cigarette/Vaping 05/20/2020 Electronic Cigarette Use: Never . Problem list: Active Problems (3) Breast cancer HTN (hypertension) Hypothyroidism . Physical Examination Vital Signs Vital Signs 03/21/2021 20:15 EST Temperature Oral 36.3 DegC Peripheral Pulse Rate 66 bpm Respiratory Rate 22 br/min HI Systolic Blood Pressure 164 mmHg HI Diastolic Blood Pressure 82 mmHg SpO2 100 % Oxygen Therapy Room air . Vital signs reviewed, the patient is afebrile with a normal pulse, blood pressure is elevated at 164/82, she is not hypoxic with pulse ox of 100% on room air. General: Alert, no acute distress, Well-ap (more content not included)... Normal [facility] ED Patient Summaryon 021 ED Patient Summary [facility] - Emergency Department [address] [place], [place] [id number] PATIENT DISCHARGE INSTRUCTIONS Patient Information Name: NU RIBEIRO Age: 71 Years Date of : 1950 Reason For Visit: Shortness of breath; SOB Arrival Time: 03/21/2021 19:58:39 Primary Care Physician: Laz Portillo MD Attending Physician: Marisol Leigh D.O. Comment: Visit Diagnosis: Diagnoses This Visit Asthma exacerbation (J45.901) Shortness of breath ([id number]) Prescription Information: If you have been given a prescription for narcotics, seek immediate medical attention if you have any difficulty breathing or any sudden status changes such as confusion and sleepiness. If you or anyone you know is experiencing suicidal thoughts, mental health, alcohol and/or drug addiction problems; contact the [facility] Recovery [facility] 03/12 Crisis Hotline -Text 4HTXR xb 960005. If you received any narcotics, sedation, or any other medication that causes drowsiness for the next 24 hours, unless otherwise directed: ? Do not drive a car. ? Do not operate machinery such as power tools, lawn mowers, drills, sewing machines, or stoves ? Avoid alcoholic beverages and drugs for allergies, nerves, or sleep ? Do not make important personal or business decisions or sign any legal documents With: Address: When: Laz Portillo [address] [place] [address] Business (1) Within 3 to 5 days Medication Information: The exam and treatment you received today in the [facility] Emergency Department were for an urgent problem and are not intended as complete care. It is important for you to follow up with a doctor, nurse practitioner, or physician?s photo studio assistant for ongoing care. If your symptoms become worse or you do not improve as expected and you are unable to reach your usual health care provider, you should return to the Emergency Department, we are available 24 hours a day. For those patients who have received Radiology results, the interpretation of your X-ray as given to you by our Emergency Department physician is only a preliminary report. The Radiologist will review your films and if there is a change in the diagnosis you will be notified by phone. Please make sure you have provided a working phone number so we can reach you if necessary. In the event that you had a lab culture while you were a patient in the Emergency Department, you will be notified by phone if there is a need to change your antibiotic. Please make sure you have provided a working phone number so we can reach you if necessary. [facility] Emergency Department has provided you with a complete list of medications post discharge. Please inform your assistant teacher primary/provider of your visit and for further instruction on these medications. Any specific questions regarding your chronic medications and dosages should be discussed with your primary care physician(s) and/or pharmacist. New Medications [facility] [address] [facility], [address] [place], [place] [id number], [phone] albuterol (Albuterol (Eqv-ProAir HFA) 90 mcg/inh inhalation aerosol) 2 puff(s) Inhalation every 6 hours. Refills: 1. Additional medications on your home medication list not specifically addressed. Please contact the ordering physician if you have questions about these medications. anastrozole (anastrozole 1 mg oral tablet) 1 tab(s) Oral every day. cranberry (cranberry oral capsule) FLUoxetine (PROzac 40 mg oral capsule) 1 cap(s) Oral every day. hydrochlorothiazide-lisbeth nopril (hydrochlorothiazide-lis inopril 12.5 mg-20 mg oral tablet) 1 tab(s) Oral every day. metoprolol (Metoprolol Tartrate 25 mg oral tablet) 1 tab(s) Oral 2 times a day. Visit Information Allergies: Substance Reaction Symptoms Type Comments No Known Medication Allergies Drug Vital Signs: Vitals and Measurements this Visit (last charted value for your 03/21/2021 visit) Vital Signs This Visit Temperature Oral: 36.3 DegC Peripheral Pulse Rate: 76 bpm Respiratory Rate: 16 br/min Systolic Blood Pressure: 140 mmHg Diastolic Blood Pressure: 66 mmHg SpO2: 100 % Oxygen Therapy: Room air Measurements This Visit Height/Length Dosin.100 cm Height/Length Estimated: 165.100 cm Weight Dosin.940 kg Weight Estimated: 73.940 kg Problems List: Problem Onset Comments Breast cancer HTN (hypertension) Hypothyroidism Patient Education Bronchospasm, Adult Bronchospasm is when airways in the lungs get smaller. When this happens, it can be hard to breathe. You may cough. You may also make a whistling sound when you breathe (wheeze). Follow these instructions at home: Medicines ? Take odjg-sly-vxiatgr and prescription medicines only as told by your doctor. ? If you need to use an inhaler or nebulize (more content not included)... Normal [facility] Lactic Acidon 03-22-2021 Lactic Acid 11.7 mg/dL Normal 4.5-19.8 [facility] Comment on above: Performed By: #### 2 [id number] ####[facility] (DEFAULT)[address] [place] [address] .Auto Diff 1on 03-21-2021 Auto [place] % 8 % Normal -12 [facility] Comment on above: Performed By: #### 5 [id number], [id number], [id number], [id number], [id number] ####[facility] (DEFAULT)[address] [place] [address] 08860 Baso Abs# 0.0 x10 Normal 0.0-0.2 [facility] Comment on above: Performed By: #### 5 [id number], [id number], [id number], 6434109, 0683396 ####[facility] (DEFAULT)[address] [place] [address] Basophils/100 WBC (Bld) 0.4 % Normal 0.2-2.0 [facility] Comment on above: Performed By: #### 5 [id number], [id number], [id number], 0713979, 9592156 ####[facility] (DEFAULT)[address] [place] [address] Eos Abs# 0.5 x10 High 0.0-0.4 [facility] Comment on above: Performed By: #### 5 [id number], [id number], [id number], 0538294, 9458958 ####[facility] (DEFAULT)[address] [place] [address] 11598 Eosinophils/100 WBC (Bld) 7.0 % High 0.9-4.0 [facility] Comment on above: Performed By: #### 5 [id number], [id number], [id number], 3534735, 7208595 ####[facility] (DEFAULT)[address] [place] [address] 36823 Lymph Abs# 2.3 x10 Normal 1.3-2.9 [facility] Comment on above: Performed By: #### 5 [id number], 84700405, [id number], 5882038, 1336991 ####[facility] (DEFAULT)[address] [place] [address] 74674 Lymphocytes/100 WBC (Bld) 31 % Normal 14-48 [facility] Comment on above: Performed By: #### 5 [id number], 90066094, [id number], 5504458, 3833187 ####[facility] (DEFAULT)[address] [place] [address] 06229 [place] Abs# 0.6 x10 Normal 0.0-0.8 [facility] Comment on above: Performed By: #### 5 [id number], 71526206, [id number], 5019569, 6229789 ####[facility] (DEFAULT)[address] [place] [address] 06848 Neut Abs# 4.0 x10 Normal 1.5-9.2 [facility] Comment on above: Performed By: #### 5 [id number], 64944735, [id number], 3323729, 3131353 ####[facility] (DEFAULT)[address] [place] [address] 04688 Neutrophils/100 WBC (Bld) 54 % Normal 44-88 [facility] Comment on above: Performed By: #### 5 [id number], 92298264, [id number], 4138263, 2368621 ####[facility] (DEFAULT)[address] [place] [address] CBC w/ Auto Diffon 1 Erythrocyte distribution width (RBC) [Ratio] 13.0 % Normal 11.5-15.0 [facility] Comment on above: Performed By: #### 5 [id number], 12525659, [id number], 6610673, 1193763 #### [facility] (DEFAULT) [address] [place] [address] Hematocrit (Bld) [Volume fraction] 38.1 % Normal 33.7-40.4 [facility] Comment on above: Performed By: #### 5 [id number], 61847773, 5879696477, 2897152, 6202604 #### [facility] (DEFAULT) [address] [place] [address] Hemoglobin (Bld) [Mass/Vol] 12.6 g/dL Normal 11.3-15.9 [facility] Comment on above: Performed By: #### 5 [id number], 83281545, 9809104652, 1029042, 2533777 #### [facility] (DEFAULT) [address] [place] [address] Instr WBC 7.5 x10 Invalid Interpretation Code [facility] Comment on above: Performed By: #### 5 [id number], 82832774, [id number], 6686320, 0968200 #### [facility] (DEFAULT) [address] [place] [address] Man Diff? Auto Normal [facility] Comment on above: Performed By: #### 5 [id number], 56741029, [id number], 9158308, 7711173 #### [facility] (DEFAULT) [address] [place] [address] MCH (RBC) [Entitic mass] 29 pg Normal 24-34 [facility] Comment on above: Performed By: #### 5 [id number], 79280641, 8162606712, 0473071, 3364574 #### [facility] (DEFAULT) [address] [place] [address] 49346 MCHC (RBC) [Mass/Vol] 33 g/dL Normal 26-37 [facility] Comment on above: Performed By: #### 5 [id number], 05458951, 9109269318, 9326229, 8791120 #### [facility] (DEFAULT) [address] [place] [address] 36966 MCV (RBC) [Entitic vol] 88 fL Normal 81-100 [facility] Comment on above: Performed By: #### 5 [id number], 22990771, 9046059695, 3823029, 2116894 #### [facility] (DEFAULT) [address] [place] [address] Platelet 225 x10 Normal 138-427 [facility] Comment on above: Performed By: #### 5 [id number], 04695124, 6915733944, 2505688, 0142710 #### [facility] (DEFAULT) [address] [place] [address] Platelet mean volume (Bld) [Entitic vol] 9.6 fL Normal 6.3-10.2 [facility] Comment on above: Performed By: #### 5 [id number], 93590370, 6313940923, 0299713, 5424126 #### [facility] (DEFAULT) [address] [place] [address] 83573 RBC 4.34 x10 Normal 3.70-5.30 [facility] Comment on above: Performed By: #### 5 [id number], 98484446, 2266089622, 7436279, 5739411 #### [facility] (DEFAULT) [address] [place] [address] 70101 WBC 7.5 x10 Normal 3.5-10.5 [facility] Comment on above: Performed By: #### 5 [id number], 28903234, 7919355217, 0712123, 6733279 #### [facility] (DEFAULT) [address] [place] [address] 78347 CMP Standardon 03-21-2021 eGFR Non AA >60 Invalid Interpretation Code [facility] Comment on above: Performed By: #### 5 [id number], 18400665, 1056452272, 5550012, 6164568 ####[facility] (DEFAULT)[address] [place] [address] 13204 eGFR AA >60 Invalid Interpretation Code [facility] Comment on above: Result Comment: Winder Tender feliz Kidney disease could be indicated at eGFRs of less than 60 ml/min/1.73m2. Kidney Failure is indicated at less than 15 ml/min/1.73m2 Performed By: #### 5 [id number], 60395118, 3689027030, 7463356, 4877989 ####[facility] (DEFAULT)[address] [place] [address] 65557 Albumin [Mass/Vol] 4.0 g/dL Normal 3.5-5.0 [facility] Comment on above: Performed By: #### 5 [id number], 84463547, 3801515760, 2219313, 1502644 ####[facility] (DEFAULT)[address] [place] [address] 21907 Albumin/Globulin [Mass ratio] 1.4 {ratio} Normal 1.4-2.6 [facility] Comment on above: Performed By: #### 5 [id number], 04277710, 8664971118, 4679764, 8598564 ####[facility] (DEFAULT)[address] [place] [address] 50242 Alk Phos 59 IU/L Normal 32-91 [facility] Comment on above: Performed By: #### 5 [id number], 70388647, 1644319263, 0071091, 9328398 ####[facility] (DEFAULT)[address] [place] [address] 05159 ALT [Catalytic activity/Vol] 15.0 U/L Normal 14.0-54.0 [facility] Comment on above: Performed By: #### 5 [id number], 58202423, 6299330114, 7595051, 5247226 ####[facility] (DEFAULT)[address] [place] [address] 80356 Anion gap [Moles/Vol] 11.0 mmol/L Normal 5.0-19.0 [facility] Comment on above: Performed By: #### 5 [id number], 52200168, 2356334089, 3515661, 5028873 ####[facility] (DEFAULT)[address] [place] [address] 23835 AST [Catalytic activity/Vol] 19 U/L Normal 15-41 [facility] Comment on above: Performed By: #### 5 [id number], 26343785, 8011139525, 8106852, 8078132 ####[facility] (DEFAULT)[address] [place] [address] 44790 Bili Total 0.8 mg/dL Normal 0.3-1.2 [facility] Comment on above: Performed By: #### 5 [id number], 96188979, 2630843596, 4906118, 2703162 ####[facility] (DEFAULT)[address] [place] [address] 45498 Calcium [Mass/Vol] 9.5 mg/dL Normal 8.9-10.3 [facility] Comment on above: Performed By: #### 5 [id number], 18946898, 3324074933, 4637110, 6510973 ####[facility] (DEFAULT)[address] [place] [address] 11306 Chloride [Moles/Vol] 105 mmol/L Normal 101-111 [facility] Comment on above: Performed By: #### 5 [id number], 33537512, 6591052575, 7339137, 3044949 ####[facility] (DEFAULT)[address] [place] [address] 46057 CO2 [Moles/Vol] 29 mmol/L Normal 21-32 [facility] Comment on above: Performed By: #### 5 [id number], 98973448, 4107645107, 5414441, 9348747 ####[facility] (DEFAULT)[address] [place] [address] 98368 Creatinine [Mass/Vol] 0.70 mg/dL Normal 0.60-1.30 [facility] Comment on above: Performed By: #### 5 [id number], 81206713, 2315934374, 7912789, 0963744 ####[facility] (DEFAULT)[address] [place] [address] 10034 Globulin (S) [Mass/Vol] 2.9 g/dL Normal 1.5-4.3 [facility] Comment on above: Performed By: #### 5 [id number], 55836410, 0102430465, 4186017, 6188216 ####[facility] (DEFAULT)[address] [place] [address] 75121 Glucose [Mass/Vol] 87.0 mg/dL Normal 74.0-118.0 [facility] Comment on above: Performed By: #### 5 [id number], 54481734, 3383373616, 8618739, 6159344 ####[facility] (DEFAULT)[address] [place] [address] 42522 Osmolality 283 mOsm/L Invalid Interpretation Code [facility] Comment on above: Performed By: #### 5 [id number], 43710616, 2561428404, 0442337, 5976267 ####[facility] (DEFAULT)[address] [place] [address] 56838 Potassium [Moles/Vol] 3.8 mmol/L Normal 3.6-5.1 [facility] Comment on above: Performed By: #### 5 [id number], 57050236, 3036879975, 4200176, 0970791 ####[facility] (DEFAULT)[address] [place] [address] 70764 Protein [Mass/Vol] 6.9 g/dL Normal 6.5-8.1 [facility] Comment on above: Performed By: #### 5 [id number], 23484723, 2721919759, 1751949, 0706832 ####[facility] (DEFAULT)[address] [place] [address] 34080 Sodium [Moles/Vol] 141.0 mmol/L Normal 136.0-144.0 [facility] Comment on above: Performed By: #### 5 [id number], 04953671, 4145991985, 7305863, 7698360 ####[facility] (DEFAULT)[address] [place] [address] Urea nitrogen [Mass/Vol] 19 mg/dL Normal 8-26 [facility] Comment on above: Performed By: #### 5 [id number], 80904752, 5067434048, 6417040, 1079978 ####[facility] (DEFAULT)[address] [place] [address] Urea nitrogen/Creatinine [Mass ratio] 27.0 mg/mg High 4.6-16.2 [facility] Comment on above: Performed By: #### 5 [id number], 97171485, 6480192961, 1141838, 4035877 ####[facility] (DEFAULT)[address] [place] [address] D-Dimeron 03-21-2021 D-Dimer 0.51 mg/L FEU High 0.19-0.50 [facility] Comment on above: Result Comment: Resu lts Called To [facility] By CDD And Read Back For Confirmation On 03/21/2021 21:06:41 EST. The INNOVANCE D-Dimer assay (Cutoff Value of > 0.50) is intended for the use as an aid in the diagnosis of venous thromboembolism (VTE) deep vein thrombosis (DVT) or pulmonary embolism (PE). The measurement of D-Dimer should not be used as an aid in the diagnosis of VTE in patients with: ? Therapeutic dose anticoagulant therapy for >24 hours ? Fibrinolytic therapy within previous 7 days ? Trauma or surgery within previous 4 weeks ? Disseminated malignancies ? Aortic aneurysm ? Sepsis, sever infections, pneumonia, severe skin infections ? Liver cirrhosis ? Performed By: #### 5 [id number], 53794701, 2778856578, 4192534, 6889357 ####[facility] (DEFAULT)[address] [place] [address] 92467 ED Note - Physicianon 2020 ED Note - Physician Patient: NU RIBEIRO Age: 71 years Sex: FEMALE : 1950 Associated Diagnoses: Asthma exacerbation; Shortness of breath Author: Marisol Leigh D.O. Basic Information Time seen: Date & time 03/21/2021 20:04:00. History source: Patient. Arrival mode: Private vehicle. History limitation: None. History of Present Illness 71-year-old female presents for evaluation of 2 to 3 days of increasing shortness of breath. She has a history of asthma. States she can feel herself wheezing. She states she has not had to use her inhalers in many years. She was able to find her old inhaler and use it. She also took one of her husbands diuretics. She states she used to take a blood pressure medicaiton with a diuretic in it but doesnt anymore. She states that she has intermittent left-sided chest pain. She denies any dizziness or syncope. Chest pain is not radiating. She does not smoke. She has been vaccinated against COVID-19. She denies any fever, change in her taste and smell. She denies any abdominal pain, nausea vomiting or diarrhea. Review of Systems Constitutional symptoms: Negative except as documented in HPI. Skin symptoms: Negative except as documented in HPI. Eye symptoms: Negative except as documented in HPI. ENMT symptoms: Negative except as documented in HPI. Respiratory symptoms: Shortness of breath, cough, wheezing. Cardiovascular symptoms: Chest pain. Gastrointestinal symptoms: Negative except as documented in HPI. Genitourinary symptoms: Negative except as documented in HPI. Musculoskeletal symptoms: Negative except as documented in HPI. Neurologic symptoms: Negative except as documented in HPI. Psychiatric symptoms: Negative except as documented in HPI. Endocrine symptoms: Negative except as documented in HPI. Hematologic/Lymphatic symptoms: Negative except as documented in HPI. Allergy/immunologic symptoms: Negative except as documented in HPI. Additional review of systems information: All other systems reviewed and otherwise negative. Health Status Allergies: Allergic Reactions (All) No Known Medication Allergies. Medications: (Selected) Documented Medications Documented PROzac 40 mg oral capsule: 40 mg = 1 cap(s), PO, Daily, 0 Refill(s) anastrozole 1 mg oral tablet: 1 mg = 1 tab(s), PO, Daily, 0 Refill(s) cranberry oral capsule: 0 Refill(s) hydrochlorothiazide-lisbeth nopril 12.5 mg-20 mg oral tablet: 1 tab(s), PO, Daily, 0 Refill(s). Past Medical/ Family/ Social History Medical history: No active or resolved past medical history items have been selected or recorded.. Surgical history: No active procedure history items have been selected or recorded.. Family history: No family history items have been selected or recorded.. Social history: Social & Psychosocial Habits Tobacco 05/20/2020 Smoking tobacco use: Never (less than 100 in l Electronic Cigarette/Vaping 05/20/2020 Electronic Cigarette Use: Never . Problem list: Active Problems (3) Breast cancer HTN (hypertension) Hypothyroidism . Physical Examination Vital Signs Vital Signs 03/21/2021 20:15 EST Temperature Oral 36.3 DegC Peripheral Pulse Rate 66 bpm Respiratory Rate 22 br/min HI Systolic Blood Pressure 164 mmHg HI Diastolic Blood Pressure 82 mmHg SpO2 100 % Oxygen Therapy Room air . Vital signs reviewed, the patient is afebrile with a normal pulse, blood pressure is elevated at 164/82, she is not hypoxic with pulse ox of 100% on room air. General: Alert, no acute distress, Well-appearing female, patient is speaking in complete sentences, no respiratory distress. Skin: Warm, dry, pink, intact, no pallor, no rash. Head: Normocephalic, atraumatic. Neck: Supple, trachea midline, no tenderness. Eye: Pupils are equal, round and reactive to light, extraocular movements are intact, normal conjunctiva, vision grossly normal. Cardiovascular: Regular rate and rhythm, No murmur, Normal peripheral perfusion. Respiratory: Bilateral expiratory wheezing is noted, there is no rhonchi or rales appreciated, there is no accessory muscle use, patient is speaking in complete sentences, pulse ox 100% on room air. Gastrointestinal: Soft, Nontender, Non distended, Normal bowel sounds. Back: Nontender, Normal range of motion, Normal alignment, no step-offs. Musculoskeletal: Normal ROM, normal strength, no tenderness, no swelling, no deformity. Neurological: Alert and oriented to person, place, time, and situation, No focal neurological deficit observed, CN II-XII intact, normal sensory observed, normal motor observed, normal speech observed, normal coordination observed. Lymphatics: No lymphadenopathy. Psychiatric: Cooperative, appropriate mood & affect, normal judgment, non-suicidal. Medical Decision Making Orders Launch Orders Laboratory: Troponin I High Sensitivity (Order): Blood, Stat collect, 03/21/2021 20:16 EST, Lab Collect SARS-CoV-2 (COVID-19) PCR (more content not included)... [facility] ED Note-Nursingon 03-21-2021 ED Note-Nursing Pt states she feels better, less short of breath. Pt is currently resting on cart awaiting CT PE study. Normal [facility] ED Note-Nursing Pt arrives to ED peng m 4 complaining of shortness of breath. Pt states that it has been getting worse through out the day today. She states that she has been using her inhaler every 3-4 hours but has not really had any relief. Pt states that she has had both of her COVID vaccine Pt states that she feels like she can't take a deep breath. Pt states that it is more when she does things rather than all the time. Pt denies any other complaints at this time. Pt resting on cart. Normal [facility] TnI HSon 03-21-2021 Troponin I High Sensitivity 3 pg/mL Normal <=15 [facility] Comment on above: Result Comment: Male Baseline Delta 1Hr (Note pg/mL=ng/L) <20pg/mL 50-60% >20pg/mL 20% Female Baseline Delta 1Hr <15pg/mL 50-60% >15pg/mL 20% Other Baseline Delta 1Hr <18ng/mL 50-60% >18ng/mL 20% ([place] [employer] Guidelines December 2017) Performed By: #### 5 [id number], [id number], [id number], 9059198, 2265255 ####[facility] (DEFAULT)[address] [place] [address] XR Chest 1 View Frontalon XR Chest 1 View Frontal EXAMINATION: XR Chest 1 View Frontal, , 03/21/2021 8:55 PM EST INDICATION: SOB HISTORY: Ordering Provider Reason for Exam: Technologist Note: Additional: COMPARISON: None TECHNIQUE: Chest x-ray: One view. FINDINGS: No pneumothorax, pleural effusion or focal airspace consolidation. Heart is normal in size. Bony thorax is unremarkable. IMPRESSION: No acute cardiopulmonary process. Final Dictated by: Kim Phelan Dictated DT/TM: 03/21/21 11:22 Signed (Electronic Signature): Kim Phelan 03/21/21 11:22 p Technologist: SRF,L Normal [facility] FolateOrdered By: Raul Carmendonny on 11-29-2020 Folate 8.9 ng/mL >4.8 [employer] Work Phone: No Panel InformationOrdered By: Raul Swan on 11-29-2020 [employer] Work Phone: Vitamin [id number] By: Raul Swan on 11-29-2020 Cobalamin (Vitamin B12) [Mass/Vol] 753 pg/mL 232 - 1245 pg/mL [employer] Work Phone: CBC Auto DifferentialOrdered By: Laz Portillo on 09-20-2020 Absolute Eos # 0.[address] [facility] Work Phone: Absolute Immature Granulocyte NOT REPORTED [facility] Work Phone: Absolute Lymph # 1.60 [facility] Work Phone: Absolute [place] # 0.30 [facility] Work Phone: Basophils (Bld) [#/Vol] 0.10 10*3/uL [facility] Work Phone: Basophils/100 WBC (Bld) 1 % 0 - 2 % [facility] Work Phone: Differential Type NOT REPORTED [facility] Work Phone: Eosinophils/100 WBC (Bld) 5 % High 0 - 4 % [facility] Work Phone: Hematocrit (Bld) [Volume fraction] 38.0 % 36 - 46 % [facility] Work Phone: Hemoglobin.gastrointe stinal spec 1 Ql (Stl) 12.1 g/dL 12.0 - 16.0 g/dL [facility] Work Phone: Immature Granulocytes NOT REPORTED 0 % [facility] Work Phone: Interpretation and review of laboratory results Abnormal [facility] Work Phone: Lymphocytes/100 WBC (Bld) 25 % 24 - 44 % [employer] Work Phone: MCH (RBC) [Entitic mass] 29.5 pg 26 - 34 pg [employer] Work Phone: MCHC (RBC) [Mass/Vol] 31.8 g/dL 31 - 3 7 g/dL [employer] Work Phone: MCV (RBC) [Entitic vol] 92.8 fL 80 - 100 fL [employer] Work Phone: Monocytes/100 WBC (Bld) 5 % 1 - 7 % [employer] Work Phone: NRBC Automated NOT REPORTED per 100 WBC [employer] Work Phone: Platelet distribution width (Bld) [Ratio] 14.1 % 11.5 - 14.9 % [employer] Work Phone: Platelet Estimate NOT REPORTED [employer] Work Phone: Platelet mean volume (Bld) [Entitic vol] 8.3 fL 6.0 - 12.0 fL [employer] Work Phone: Platelets (Bld) [#/Vol] 147 10*3/uL Low [employer] Phone: RBC (Bld) [#/Vol] 4.09 10*6/uL 4.0 - 5.2 m/uL [employer] Work Phone: RBC (Bld) [#/Vol] NOT REPORTED [employer] Work Phone: Segmented neutrophils/100 WBC (Bld) 64 % 36 - 66 % [employer] Work Phone: Segs Absolute 4.20 [employer] Work Phone: WBC (Bld) [#/Vol] 6.6 10*3/uL [employer] Work Phone: WBC (Bld) [#/Vol] NOT REPORTED [employer] Work Phone: Comprehensive Metabolic Pane lOrdered By: Laz Portillo on 09-20-2020 Albumin [Mass/Vol] 4.1 g/dL 3.5 - 5.2 g/dL [employer] Phone: Albumin/Globulin Ratio NOT REPORTED [employer] Phone: ALP (Bld) [Catalytic activity/Vol] 48 U/L 35 - 104 U/L [employer] Work Phone: ALT [Catalytic activity/Vol] 17 U/L 5 - 33 U/L [employer] Phone: Anion gap [Moles/Vol] 10 mmol/L 9 - 17 mmol/L [employer] Phone: AST [Catalytic activity/Vol] 25 U/L <32 [employer] Phone: Comment on above: SPECIMEN MODERATELY HEMOLYZED, RESULTS MAY BE ADVERSELY AFFECTED Bilirubin [Mass/Vol] 0.68 mg/dL 0.3 - 1 .2 mg/dL [employer] Phone: Calcium [Mass/Vol] 9.5 mg/dL 8.6 - 10. 4 mg/dL [employer] Phone: Chloride [Moles/Vol] 105 mmol/L 98 - 10 7 mmol/L [employer] Phone: CO2 [Moles/Vol] 24 mmol/L 20 - 31 mmol/L [employer] Work Phone: Creatinine [Mass/Vol] 0.6 mg/dL 0.50 - 0.90 mg/dL [employer] Phone: Free PSA/Total PSA [Mass fraction] 6.9 g/dL 6.4 - 8.3 g/dL [employer] Phone: GFR >60 >60 mL/min [employer] Phone: GFR Non- >60 >60 mL/min [employer] Phone: GFR/1.73 sq M.predicted MDRD (S/P/Bld) [Vol rate/Area] [employer] Phone: Comment on above: Average GFR for 70 o r more years old: 75 mL/min/1.73sq m Chronic Kidney Disease: <60 mL/min/1.73sq m Kidney failure: <15 mL/min/1.73sq m eGFR calculated using average adult body mass. Additional eGFR calculator available at: http://www.[employer]/multiple_crcl_2012.htm GFR/1.73 sq M.predicted MDRD (S/P/Bld) [Vol rate/Area] NOT REPORTED [employer] Phone: Glucose [Mass/Vol] 97 mg/dL 70 - 99 mg/dL [employer] Phone: Potassium [Moles/Vol] 5.6 mmol/L High 3.7 - 5.3 mmol/L [employer] Phone: Comment on above: SPECIMEN MODERATELY HEMOLYZED, RESULTS MAY BE ADVERSELY AFFECTED Sodium [Moles/Vol] 139 mmol/L 135 - 144 mmol/L [employer] Phone: Urea nitrogen (BldV) [Mass/Vol] 18 mg/dL 8 - 23 mg/dL [employer] Phone: Urea nitrogen/Creatinine (Bld) [Mass ratio] NOT REPORTED [employer] Phone: ECHO Complete 2D W Doppler W ColorOrdered By: Laz Portillo on 09-20-2020 [facility] Transthoracic Echocardiography Report (TTE) Patient Name QUINTIN Date of Study 09/20/2020 NU Ibarra Date of 1950 Gender Female Age 70 year(s) Race Room Number Height: 64.96 inch, 165 cm Corporate ID [id number] Weight: 160 pounds, 72.6 kg # Patient Acct [id number] BSA: 1.8 m^2 BMI: 26.66 kg/m^2 # MR # [id number] Glass Engraver Elaine Miles Interpreting Osmar Pryor Physician Fellow Referring Nurse Practitioner Interpreting Referring Physician LAZ PORTILLO, SUNG Fellow JANNETH* Type of Study TTE procedure:2D Echocardiogram, M-Mode, Doppler, Color Doppler. Procedure Date Date: 09/20/2020 Start: 07:43 AM Study Location: [facility] Technical Quality: Fair visualization Indications:Syncope. History / Tech. Comments: LOC Patient Status: Outpatient Height: 64.96 inches Weight: 160 pounds BSA: 1.8 m^2 BMI: 26.66 kg/m^2 Rhythm: Within normal limits HR: 69 bpm BP: 149/82 mmHg CONCLUSIONS Summary Normal left ventricle size and function with an estimated EF > 55%. No segmental wall motion abnormalities seen. Mild left ventricular hypertrophy. Grade I (mild) left ventricular diastolic dysfunction. Normal right ventricular size and function. Left atrium is normal in size. Right atrium is normal in size. Normal aortic valve structure and function without stenosis or regurgitation. Normal aortic root dimension. Normal mitral valve structure and function. No mitral regurgitation. Normal tricuspid valve structure and function. Insignificant tricuspid regurgitation, unable to estimate RVSP. Pulmonic valve not well visualized but Doppler velocities are normal. Mild pulmonic insufficiency. IVC normal diameter & inspiratory collapse indicating normal RA filling pressure . No significant pericardial effusion is seen. Signature ---- ---- ---- ---- FINDINGS Left Atrium Left atrium is normal in size. Left Ventricle Normal left ventricle size and function with an estimated EF > 55%. No segmental wall motion abnormalities seen. Mild left ventricular hypertrophy. Grade I (mild) left ventricular diastolic dysfunction. Right Atrium Right atrium is normal in size. Right Ventricle Normal right ventricular size and function. Mitral Valve Normal mitral valve structure and function. No mitral regurgitation. Aortic Valve Normal aortic valve structure and function without stenosis or regurgitation. Tricuspid Valve Normal tricuspid valve structure and function. Insignificant tricuspid regurgitation, unable to estimate RVSP. Pulmonic Valve Pulmonic valve not well visualized but Doppler velocities are normal. Mild pulmonic insufficiency. Pericardial Effusion No significant pericardial effusion is seen. Miscellaneous Normal aortic root dimension. E/e' average 8.4 IVC normal diameter & inspiratory collapse indicating normal RA filling pressure . M-mode / 2D Measurements & Calculations: LVIDd:4.27 cm(3.7 - 5.6 cm) Diastolic Volume:77.9 ml LVIDs:2.83 cm(2.2 - 4.0 cm) Systolic Volume:22.7 ml IVSd:1.2 cm(0.6 - 1.1 cm) Aortic Root:3.1 cm(2.0 - 3.7 cm) LVPWd:1.2 cm(0.6 - 1.1 cm) LA Dimension: 3.7 cm(1.9 - 4.0 cm) Fractional Shortenin.72 % LA volume/Index: 37 ml /21m^2 Calculated LVEF (%): 70.86 % LVOT:2.1 cm Mitral: Aortic Peak E-Wave: 0.67 m/s Peak Velocity: 1.48 m/s Peak A-Wave: 0.81 m/s Mean Velocity: 1.02 m/s E/A Ratio: 0.83 Peak Gradient: 8.76 mmHg Peak Gradient: 1.8 mmHg Mean Gradient: 5 mmHg Mean Gradient: 1 mmHg Deceleration Time: 187 msec Area (continuity): 2.63 cm^2 AV VTI: 34.7 cm Area (continuity): 4.33 cm^2 Mean Velocity: 0.56 m/s Septal Wall E' velocity:0.07 m/s Lateral Wall E' velocity:0.10 m/s [facility] [employer] Work Phone: Tao, [employer] Incoming Cardio Results From [facility]/Ge - 09/20/2020 10:17 AM EDT [facility] Transthoracic Echocardiography Report (TTE) Patient Name QUINTIN Date of Study 09/20/2020 [facility] Date of 1950 Gender Female Age 70 year(s) Race Room Number Height: 64.96 inch, 165 cm Corporate ID [id number] Weight: 160 pounds, 72.6 kg # Patient Acct [id number] BSA: 1.8 m^2 BMI: 26.66 kg/m^2 # MR # [id number] Glass Engraver AlpakarenbethElaine Interpreting Osmar Pryor Physician Fellow Referring Nurse Practitioner Interpreting Referring Physician SUNG AGUAYO Fellow JANNETH* Type of Study TTE procedure:2D Echocardiogram, M-Mode, Doppler, Color Doppler. Procedure Date Date: 09/20/2020 Start: 07:43 AM Study Location: [facility] Technical Quality: Fair visualization Indications:Syncope. History / Tech. Comments: LOC Patient Status: Outpatient Height: 64.96 inches Weight: 160 pounds BSA: 1.8 m^2 BMI: 26.66 kg/m^2 Rhythm: Within normal limits HR: 69 bpm BP: 149/82 mmHg CONCLUSIONS Summary Normal left ventricle size and function with an estimated EF > 55%. No segmental wall motion abnormalities seen. Mild left ventricular hypertrophy. Grade I (mild) left ventricular diastolic dysfunction. Normal right ventricular size and function. Left atrium is normal in size. Right atrium is normal in size. Normal aortic valve structure and function without stenosis or regurgitation. Normal aortic root dimension. Normal mitral valve structure and function. No mitral regurgitation. Normal tricuspid valve structure and function. Insignificant tricuspid regurgitation, unable to estimate RVSP. Pulmonic valve not well visualized but Doppler velocities are normal. Mild pulmonic insufficiency. IVC normal diameter & inspiratory collapse indicating normal RA filling pressure . No significant pericardial effusion is seen. Signature --- - --- - --- - --- - FINDINGS Left Atrium Left atrium is normal in size. Left Ventricle Normal left ventricle size and function with an estimated EF > 55%. No segmental wall motion abnormalities seen. Mild left ventricular hypertrophy. Grade I (mild) left ventricular diastolic dysfunction. Right Atrium Right atrium is normal in size. Right Ventricle Normal right ventricular size and function. Mitral Valve Normal mitral valve structure and function. No mitral regurgitation. Aortic Valve Normal aortic valve structure and function without stenosis or regurgitation. Tricuspid Valve Normal tricuspid valve structure and function. Insignificant tricuspid regurgitation, unable to estimate RVSP. Pulmonic Valve Pulmonic valve not well visualized but Doppler velocities are normal. Mild pulmonic insufficiency. Pericardial Effusion No significant pericardial effusion is seen. Miscellaneous Normal aortic root dimension. E/e' average 8.4 IVC normal diameter & inspiratory collapse indicating normal RA filling pressure . M-mode / 2D Measurements & Calculations: LVIDd:4.27 cm(3.7 - 5.6 cm) Diastolic Volume:77.9 ml LVIDs:2.83 cm(2.2 - 4.0 cm) Systolic Volume:22.7 ml IVSd:1.2 cm(0.6 - 1.1 cm) Aortic Root:3.1 cm(2.0 - 3.7 cm) LVPWd:1.2 cm(0.6 - 1.1 cm) LA Dimension: 3.7 cm(1.9 - 4.0 cm) Fractional Shortenin.72 % LA volume/Index: 37 ml /21m^2 Calculated LVEF (%): 70.86 % LVOT:2.1 cm Mitral: Aortic Peak E-Wave: 0.67 m/s Peak Velocity: 1.48 m/s Peak A-Wave: 0.81 m/s Mean Velocity: 1.02 m/s E/A Ratio: 0.83 Peak Gradient: 8.76 mmHg Peak Gradient: 1.8 mmHg Mean Gradient: 5 mmHg Mean Gradient: 1 mmHg Deceleration Time: 187 msec Area (continuity): 2.63 cm^2 AV VTI: 34.7 cm Area (continuity): 4.33 cm^2 Mean Velocity: 0.56 m/s Septal Wall E' velocity:0.07 m/s Lateral Wall E' velocity:0.10 m/s [employer] Phone: Lipid PanelOrdered By: Iker Portillo on 09-20-2020 Cholesterol [Mass/Vol] 219 mg/dL High <200 [employer] Phone: Comment on above: Cholesterol Guidelines: <200 Desirable 200-240 Borderline >240 Undesirable Cholesterol in HDL [Mass/Vol] 61 mg/dL >40 [employer] Phone: Comment on above: HDL Guidelines: <40 Undesirable 40-59 Borderline >59 Desirable Cholesterol in LDL [Mass/Vol] 129 mg/dL 0 - 130 mg/dL [employer] Phone: Comment on above: LDL Guidelines: <100 Desirable 100-129 Near to/above Desirable 130-159 Borderline >159 Undesirable Direct (measured) LDL and calculated LDL are not interchangeable tests. Cholesterol in VLDL [Mass/Vol] NOT REPORTED 1 - 30 mg/dL [employer] Phone: Cholesterol.total/Cho lesterol in HDL [Mass ratio] 3.6 {ratio} <5 [employer] Phone: Triglyceride [Mass/Vol] 145 mg/dL <150 [employer] Phone: Comment on above: Triglyceride Guidelines: <150 Desirable 150-199 Borderline 200-499 High >499 Very high Based on AHA Guidelines for fasting triglyceride, February 2012. No Panel InformationOrdered By: Laz Portillo on 09-20-2020 Interpretation and review of laboratory results Abnormal [employer] Phone: TSH without ReflexOrdered By : Laz Portillo on 09-20-2020 TSH Qn 1.84 m[IU]/L [employer] Phone: VL Upper Extremity Venous Du plex LeftOrdered By: Laz Portillo on 09-20-2020 [employer] Incoming Cardio Results From [facility]/Ge - 09/20/2020 11:37 PM EDT [facility] Vascular Upper Extremities Veins Procedure Patient Name QUINTIN Date of Study 09/20/2020 NU Ibarra Date of 1950 Gender Female Age 70 year(s) Race Room Number Corporate ID # [id number] Patient MR # [id number] 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 Indications for Study:Arm swelling. Patient Status:Out Patient. Technical Quality:Adequate visualization. Conclusions Summary No evidence of superficial or deep venous thrombosis in the left upper extremity. Signature Findings: Right Impression: Left Impression: The subclavian vein was The internal jugular, subclavian, axillary, compressible with normal brachial, ulnar, radial, cephalic and basilic doppler responses. veins were compressible with normal doppler responses. Velocities are measured in cm/s ; Diameters are measured in cm Right UE Vein Measurements 2D Measurements + +------- + ---------+ --- + !Location !Visualized !Compressibility !Thrombosis ! + +------- + ---------+ --- + !Prox SCV !Yes !Yes !None ! + +------- + ---------+ --- + Doppler Measurements + --+ --+ --- + !Location !Signal !Reflux ! + --+ --+ --- + !SCV !Phasic ! ! + --+ --+ --- + Left UE Vein Measurements 2D Measurements + + + +------- --- + !Location !Visualized!Compressibil ity!Thrombosis! + + + +------- --- + !Prox IJV !Yes !Yes !None ! + + + +------- --- + !Prox SCV !Yes !Yes !None ! + + + +------- --- + !Prox Axillary !Yes !Yes !None ! + + + +------- --- + !Prox Brachial !Yes !Yes !None ! + + + +------- --- + !Prox Radial !Yes !Yes !None ! + + + +------- --- + !Prox Ulnar !Yes !Yes !None ! + + + +------- --- + !Basilic at UA !Yes !Yes !None ! + + + +------- --- + !Basilic at AF !Yes !Yes !None ! + + + +------- --- + !Basilic at LA !Yes !Yes !None ! + + + +------- --- + !Cephalic at UA !Yes !Yes !None ! + + + +------- --- + !Cephalic at AF !Yes !Yes !None ! + + + +------- --- + !Cephalic at LA !Yes !Yes !None ! + + + +------- --- + Doppler Measurements + --+ --+ --- + !Location !Signal !Reflux ! + --+ --+ --- + !IJV !Phasic ! ! + --+ --+ --- + !SCV !Phasic ! ! + --+ --+ --- + !Axillary !Phasic ! ! + --+ --+ --- + !Brachial !Phasic ! ! + --+ --+ --- + [employer] Work Phone: Coding Summaryon 08-24-2020 Coding Summary HTMLBase 64 LkeriblzYYz6vCw+PGhlYWQ+ CH2EOREiX36gpOTjoV2LK8vL AE4ZOYIXUAICKI5IHE2zcVV0 XNgkT1ChtgMt GkvurBAgUI24EKi2OEW0nOeo GBefiM5niZHpW9o7BwTuBJ92 xN94GTzsHTQzDsD8DyHhuxvq bWFy J7gnCeUrvTPoLwh+PHRhYmxl IHdpZHRoPScxMDAlJyBzdHls NY4pRh3gAQBfSCFalJoxdWUp OiBj h3zcBDSeXAmvCA3hqBlfZ3Ol sLS2EOLhg8a8Fd23rJG+PHRk MHA9qYhwGUdum697UyOgc5bg IDM3 vNQdSBsbLQU2Q05gx6W1XVUv PBHsBWC5xBV8dC5svSoqdvyg I8DnlHGlNxM6CVX6kVIwcH0r bGln ututyP8aHin+Q54XMI8SMLST FH4GEvq0G0NnCnuhlBR+PC90 SSRtWI33eIYduZJwy4ivfYm9 JzEw ROCzFGG8pRleTTqru8ZaWHHc X27qdPWep3V9NYSwlZnwaNNt GfMtxEG6vR3uESwvsrkli7gb dzsn Usijh7gumu67lN96Q36hOAwf WJMbJNW1HNJqCWCilTvhlm1w jQ9yPs3+XDwff8drs4lrnBb3 IjIw MSMiogOhbDxyVMF1k5XaAn62 L2VioZgdk5RtSzo9ci15aBRp u3H1oES3WQazBHDnbD4nRFtp ZnQ6 ZODmNsPeuV30kGHpGIbqOq7n mUwrkLuqJS4zUYBussodSFTi iX3iGYZcwMErcXvhMO8aJIRb bjtm e655AmGdISL4OXPvcJWpB6Vi gF2yOqCkVHYrLRCeR9YuaWVa ZOyvT347CQtcEaO9DLBmjwUr Y2Fs QKCjfLkrKiU0u7B7Kk7Lc1Hx szujSKQ0NFepKUO3NsR5IbDc GaE8F9EqYop8UZSumMwlEP3e J3Bh YTPcbnnizvwwiBB4BEOiFQHb lU72qVVeIBiaTv7cu1I8t894 UNDdRVTuiB49Wo2cxYnyWNTl dCBU vW1palonf2dpetkgOeXxUHDt LQj7LOa2DMSdtErwJyCqANU7 LdN2XPJ5tKImhA9cuRunwznm dG9w Oyc+H02vwI4oFKN5SYD8jkva CJYwmnHlGF26TR14V5ExKfza dGFibGU+VWAvjjPphPzgFL6c YmFj m5ybu0KnLGtnM2MaLDLeAKbi Jas7RWIbVYD0cHT4bB5qZURy TXvqd6W5lSE8Z2QuiyFzqm1l b2xs HPSjMQsbC26wlJLdp6B5RQGr vAI8FJSwvFotJpYmlY79Rpt+ TUEisTotb3CfMusaf0vlr0pa dGg9 TqEnAYCkpxKnnWhuSCU6l4Rh Cl17G12hCUclCHSiEIKiKWCt QAHlnXdrzl5orG2iEw5+PGNv bCB3 kUN5tH8zOJJzLlU2LTofY777 RsSglTUmYypad3gvz6obrYx3 CfOnUWQmpmJmeIzmAYX6k7Pu Lz48 V80bJWpoNWFgMNGkGSIuXZOy gSdiwd9hqW8vFz7+ZW7pi1bf hl96mA55iXN+ZFPtWIK0qLel PSdw SOPzhG3tFTjhVuJ3BNUsQnHu oL54zRTsWSeyEg5koCwrgAhp JU5zVYJsrllxm227YmKms8if IDEw rTClXHmhBTX6P38hx6C4RNYp IOBsFXQ5bCL5gO6abSniqrcc bGVmdDsgdmVydGljYWwtYWxp Z246 IHRvcDsnPlBhdGllbnQgTmFt ACb4U2UiWhd6WVMygTgvXQ6x nULtKOzpUk4ejFntrEfsCY7x NTBp zeldl819JtMbw8nmFSVfeNNg NFxrYEM7K86ta7W1RYIyNFQb AMW8bJU7eE2yyQqgydtssJUb dDsg itHadLjfEYveKOuzA939MKYa kXwuGyMtpxQnZDGfjNS8PP04 VA05nAImr2I1eCJ4S9RiNQYv bmct jbijeHB0WRZbTSWdwQ38Jk7y fLssDa0kNKBoNNG6EJUxgJMs R7PdmY0eLsGjVSXzRTLtK1Lr eHQt FZtgW735HPglNkO6DCPryxRi I2WpZKBjhJmiGmE0n0J7Rl1A M7I3OW79IF43oJGgm2X8vKU0 J3Bh EEThsqcgwyrqkKA8EFOlWNPb yO12Lg8kqPrxIj1dRFEcOPL7 ZDGntDJjD4GnbN3oQbKjQXSu MDAw Z7UjzXOoPYymI814CNgzNvK9 GLTuiyGxB0QwGWUsiNtpUmF6 d9M0Ok7MKSn3YG60GO78nIWh c3R5 bGG4G0UlBZMelatevrbzrSG0 NCKeIISpbY92Bx8aqRyfTb6g OQTzRRO4THLscTCjM8HbeZ0w OiAj VGWdGDYuB5CfkKRaWPclF851 VKjmUwW4ZHXryhVxA0JxKJMw kLztXuX5r7H3Jx8HGZEzXR08 IFR5 dLS0HV04UZ19E0HmDdoimBIr bGU+PHRhYmxlIHdpZHRoPScx MOQuAvYqiXavUI7jDr8dPJHi LWNv fTkbwPYiMqXok0moTMKrSJwd FX0txFltL3YfeJI1YBCyg8n9 Ny18J82mR7OcfDQ+PGNvbCB3 aWR0 pD9dOjEgDzE6AFbdF352HtJq iQZsTnhux1gdh0gecWu5AjN7 FZSpueTdoZbwXMZ0c3RfIk06 Y29s IHdpZHRoPSIxNSUiIHZhbGln kf7unN4oVe7+WKTjlMG3hRW4 rR3mItBoDjI7WGqsB976BvXz cCIv Xfsek3hum7ypsFr2QvQsMMSp ywOivFgxTDG6t4RhUh58O8Gw uXsye5AlXya1hm42qWQjo1V3 bGU9 K5RzQDYtofiugCNrzCimVO5e BUDjkfgjODFdvD9iBHOlW0t5 RhFoHnQ9VYnqJ4NqesZ9SJAi cHQg EAimIJH2E49il3N2HREjLSUw HOW8hBZ8xX7buOuodgrbeCNt bCicxjUndKtcZUgbILreK653 IHRv iOkzEUQmqA0nRKZpbIAflKsz HH7fKNRyckdzXmfDZtKVDKZD RXSFKDPPTP2HGTJDMN14RT88 dGQg k8G2bFE2E6ClDBQabegioptq vCR9AEMgPWNpqB14fUYcRAjt Qf0wx5Q5v520ZYHlNMXrcY89 Zm9u iNkqOWQbsMNLmD7radznd8gp zvngRiPyEFJoJMf6ISl9XPNp wXzrMmNzEIX9TeD1DEA9zRCf bC1h vRylbmywcY5vAaw+MTAvMTIv YNo5TZqmqLJ+ODKkAKD0pUgm EPruMOUvyX3sONSoJ1g1HuEz LjA1 ABfdQ3YaIWQxwasmPo87sG7c SlEgKvX6VUwhZ6SnrlU6SAAf hGVhSQywKBX7W03qh5M6NFEh MDAw POI7dLA0tC6jbOlznfzbkSRl fMzpmoGrcEzuXOueQPkrN095 YPRqqUvjUpxzPAokOMAwCL71 ZD48 kBHac2G9mSE3F0RrZDTxdhmy mtwwuWL0NRYyRGImvL28mBHo ROngDb7yn8J2l481JYYfUMMx aW47 Ju7esJdiABNffTSMqK1gkdbn v6sqqstyNwDpDMXdZIa4ZOw3 XNKyjZnnNdPlVCG3NkZ7QKB6 aWNh sS4wbRbqhryivQ1kYha+RkVN QTdJIV44ZD24wJYer2Q9sTS8 Z1BfNXRojvoepkzffZZ2AXBm MDUw vY58eELjNVduFo0lu0A9e760 HVFnETEmyU58Qh2yuSclAISr lKPYoR1vhyfmo3vcafdkDcWk MDAw PJw0UDt8BHZiuQmoMzUaBAN6 RcG9UTB0yYDlgN9ixHehvfqo pX5uKtf+GgKfiSPmlR2oQA26 dHBh hBzftfI9J7SuMphkzUI+PC90 FPNbAH04aQTiqBHvt0nvrQv3 DwEsWKSaUEL6rTrzNYkbe5Uv ZXIt E15tjFQui5L7ZBMrjIencFMs EcZmkGH2qB8dYKecklbzh0on fufwHmqiv9hbji74pO96N06z IHdp PREzEXHkKCEwOVEsaRjczv5j qG3eGq0+QXQfoJV1aXK6eK0k VuElNzJ6OSmgD817OuGdeGIj Pjxj b4ies0rafFm7TcOxPRBqvnMp jDspNOI9d7PwAd00E90bVEcm AOEwJKOeNLCmLYCllHlkzw3j dG9w Ii8+QL6nu6veby30rU68sPS+ ZDHbZTO4wOfeXTiiBRFpqS4c KDmgObZ8FVYjPyXopG70xYNw ZGlu Fi8fmAywtGuiGW4qHPDmgqgs s219VwMvt1etQHIimHNfRUtn JSK2M51ke1L2OITjZCPpIHZ0 dGV4 sR9zhFwivarybHPxvTunztBw dTjqOVzjRDbxN542ALZfqGti ElEqcAKaG3iskcQDTI0iKisi dGQ+ WCKoSXL9fNwgNAygBCRbtN1h ZVZkZ4v0DkOpIyJ1OOmbG6Ga aqY7WRIhzAXiTRKmdCXGyU4o cztj e3ppwtlrBiYdXQWaGHy6ZIn4 ZXWozJvoMhUgEMB5OmD6EJJ9 cPLeiW5kmCiuftocxL4iJah+ RklO OjwvdGQ+NXNoFFY6rAodKUaz YPZmsM6xFTOcE8c7EbChAmN0 BDprF1WsqhD3DLQfjTPdXQGx dCBU fB8vndzpy0bdjukrUdJxWBFg PVd9WKz3DSHqtZauQiGcQXX9 GrZ6PPZ0qBQkrO2ksPmiwvkd dG9w Oyc+TVJOOjwvdGQ+PHRkIHN0 sMtdQMlcMURnxA2lAWNzJ5r5 WnAbRnB1VLcvX1CovmI4HWLg bGQg TAWheEXOqR3odnqle8kmbpyp MlVpPYJlQGc9PZx5XFQiaWlk CjSvEKP7UnF0OCP9xNQodT6p bGln yquauJ9qJin+KOE4ISV6SU05 IJ57J5VqMkvjpFLirHL+PHRh YmxlIHdpZHRoPScxMDAlJyBz dHls ZT0 (more content not included)... [facility] Coding Summaryon 05-30-2020 Coding Summary CODING DATE: 021 [facility] STATUS: Home PAYOR: Medicare ADMIT DX: REASON FOR VISIT DX: R30.0 Dysuria R35.0 Frequency of micturition R39.15 Urgency of urination FINAL DX: PRINCIPAL: N39.0 Urinary tract infection, site not specified SECONDARY: PYMT PROC APC STAT DESCRIPTION DOCTOR NAME DATE NOTE: The code number assigned matches the documented diagnosis and / or procedure in the patient's chart. However, the narrative phrase printed from the coding software may appear abbreviated, or result in slightly different terminology. Coded By: Sydney Franklin Date Saved: 05/30/2020 03:43 pm [facility] Physical Therapy Noteon 05-13 Physical Therapy Note [id number] TIFF [facility] ED Clinical Summaryon 2020 ED Clinical Summary [facility] ? Urgent Care [address] [place], [place] [id number] Clinical Summary PERSON INFORMATION Name: NU RIBEIRO Age: 70 Years Sex: FEMALE : 1950 MRN: Acct#: Visit Reason: UC - Dysuria; PAINFUL URINATION Arrival: 05/20/2020 17:32:27 Discharge: 05/20/2020 18:13:00 LOS: 000 00:41 Check In: 05/20/2020 17:32:27 Checkout: 05/20/2020 18:13:00 Address: [address] [place] [address] PCP: Laz Portillo MD PROVIDER INFORMATION Provider Role Assigned Unassigned Kristopher Conway ED PA 05/20/2020 17:35:18 Татьяна Heaton ED Nurse 05/20/2020 17:37:14 VITALS INFORMATION Vital Sign Triage Latest Temperature Tympanic Temperature Temporal Artery Pulse Rate O2 Sat Respiratory Rate Blood Pressure /80 mmHg /80 mmHg MEDICAL INFORMATION Medications Given: Allergy Information: No Known Medication Allergies PHYSICIAN DOCUMENTATION DISCHARGE INFORMATION: Discharge Disposition: Home Discharge Location: Home PATIENT EDUCATION INFORMATION Instructions: Urinary Tract Infection, Adult, Ryvn-dt-Uqul Follow-Up: With: Address: When: Laz Portillo [address] [place] [address] [facility] (1) Comments: Begin on the bactrim this is your antibiotic, take as written until gone Drink plenty of water, stay hydrated Follow-up with your primary care provider in 5-7 days for reevaluation DIAGNOSIS: UTI (urinary tract infection) Patient Understands: Yes - Patient/family/caregiver verbalizes understanding of instructions given Comment: Normal [facility] ED Patient Summaryon 021 ED Patient Summary [facility] ? Urgent Care [address] [place], [place] [id number] PATIENT DISCHARGE INSTRUCTIONS Patient Information Name: NU RIBEIRO Age: 70 Years Date of : 1950 Reason For Visit: UC - Dysuria; PAINFUL URINATION Arrival Time: 05/20/2020 17:32:27 Primary Care Physician: Laz Protillo MD Attending Physician: Spasic PA, Kristopher Comment: Patient Education With: Address: When: Laz Portillo [address] [place] [address] [facility] (1) Comments: Begin on the bactrim this is your antibiotic, take as written until gone Drink plenty of water, stay hydrated Follow-up with your primary care provider in 5-7 days for reevaluation Urinary Tract Infection, Adult A urinary tract infection (UTI) is an infection of any part of the urinary tract. The urinary tract includes: ? The kidneys. ? The ureters. ? The bladder. ? The urethra. These organs make, store, and get rid of pee (urine) in the body. What are the causes? This is caused by germs (bacteria) in your genital area. These germs grow and cause swelling (inflammation) of your urinary tract. What increases the risk? You are more likely to develop this condition if: ? You have a small, thin tube (catheter) to drain pee. ? You cannot control when you pee or poop (incontinence). ? You are female, and: ? You use these methods to prevent : ? A medicine that kills sperm (spermicide). ? A device that blocks sperm (diaphragm). ? You have low levels of a female hormone (estrogen). ? You are . ? You have genes that add to your risk. ? You are sexually active. ? You take antibiotic medicines. ? You have trouble peeing because of: ? A prostate that is bigger than normal, if you are male. ? A blockage in the part of your body that drains pee from the bladder (urethra). ? A kidney stone. ? A nerve condition that affects your bladder (neurogenic bladder). ? Not getting enough to drink. ? Not peeing often enough. ? You have other conditions, such as: ? Diabetes. ? A weak disease-fighting system (immune system). ? Sickle cell disease. ? Gout. ? Injury of the spine. What are the signs or symptoms? Symptoms of this condition include: ? Needing to pee right away (urgently). ? Peeing often. ? Peeing small amounts often. ? Pain or burning when peeing. ? Blood in the pee. ? Pee that smells bad or not like normal. ? Trouble peeing. ? Pee that is cloudy. ? Fluid coming from the vagina, if you are female. ? Pain in the belly or lower back. Other symptoms include: ? Throwing up (vomiting). ? No urge to eat. ? Feeling mixed up (confused). ? Being tired and grouchy (irritable). ? A fever. ? Watery poop (diarrhea). How is this treated? This condition may be treated with: ? Antibiotic medicine. ? Other medicines. ? Drinking enough water. Follow these instructions at home: Medicines ? Take [id number] and prescription medicines only as told by your doctor. ? If you were prescribed an antibiotic medicine, take it as told by your doctor. Do not stop taking it even if you start to feel better. General instructions ? Make sure you: ? Pee until your bladder is empty. ? Do not hold pee for a long time. ? Empty your bladder after sex. ? Wipe from front to back after pooping if you are a female. Use each tissue one time when you wipe. ? Drink enough fluid to keep your pee pale yellow. ? Keep all follow-up visits as told by your doctor. This is important. Contact a doctor if: ? You do not get better after 1?2 days. ? Your symptoms go away and then come back. Get help right away if: ? You have very bad back pain. ? You have very bad pain in your lower belly. ? You have a fever. ? You are sick to your stomach (nauseous). ? You are throwing up. Summary ? A urinary tract infection (UTI) is an infection of any part of the urinary tract. ? This condition is caused by germs in your genital area. ? There are many risk factors for a UTI. These include having a small, thin tube to drain pee and not being able to control when you pee or poop. ? Treatment includes antibiotic medicines for germs. ? Drink enough fluid to keep your pee pale yellow. This information is not intended to replace advice given to you by your health care provider. Make sure you discuss any questions you have with your health care provider. Document Released: 10/15/2008 Document Revised: 04/16/2019 Document Reviewed: 11/06/2018 Elsevier Patient Education ? 2020 [employer] Medication Information: The exam and treatment you received today in the [facility] Emergency Department were for an urgent problem and are not intended as complete care. It is important for you to follow up with a doctor, nurse practitioner (more content not included)... [facility] UA [id number] 05-20-2020 UA Bacteria None [facility] Comment on above: Order Comment: Urina lysis Microscopic order added on by [employer] Rules system. Performed By: #### 5 [id number], [id number] ####[facility] (DEFAULT)[address] [place] [address] UA RBC 0-2 [facility] Comment on above: Order Comment: Urina lysis Microscopic order added on by [employer] Rules system. Performed By: #### 5 [id number], [id number] ####[facility] (DEFAULT)[address] [place] [address] 1984[address] UA Squam Epi Rare [facility] Comment on above: Order Comment: Urina lysis Microscopic order added on by [employer] Rules system. Performed By: #### 5 [id number], [id number] ####[facility] (DEFAULT)[address] [place] [address] 07920 UA WBC 0-2 [facility] Comment on above: Order Comment: Urina lysis Microscopic order added on by [employer] Rules system. Performed By: #### 5 [id number], [id number] ####[facility] (DEFAULT)[address] [place] [address] UA w Culture if Ind Standard on 05-20-2020 Breakpoint UA [facility] Comment on above: Performed By: #### 5 [id number], [id number] ####[facility] (DEFAULT)[address] [place] [address] Color (U) Portage [facility] Comment on above: Result Comment: Test cannot be satisfactorily determined due to intensely colored urine. Performed By: #### 5 [id number], [id number] ####[facility] (DEFAULT)[address] [place] [address] Culture? Not Indicated Invalid Interpretation Code [facility] Comment on above: Performed By: #### 5 [id number], [id number] ####[facility] (DEFAULT)[address] [place] [address] 32958 Glucose (U) [Mass/Vol] 250 mg/dL Normal [facility] Comment on above: Performed By: #### 5 [id number], [id number] ####[facility] (DEFAULT)[address] [place] [address] 34171 Ketones Ql (U) TRACE Normal [facility] Comment on above: Performed By: #### 5 [id number], [id number] ####[facility] (DEFAULT)[address] [place] [address] 29756 Micro? Indicated Normal [facility] Comment on above: Performed By: #### 5 [id number], [id number] ####[facility] (DEFAULT)[address] [place] [address] 04028 UA Bilirubin Negative Normal [facility] Comment on above: Performed By: #### 5 [id number], [id number] ####[facility] (DEFAULT)[address] [place] [address] 24118 UA Blood Negative Normal NEGATIVE [facility] Comment on above: Performed By: #### 5 [id number], [id number] ####[facility] (DEFAULT)[address] [place] [address] 25761 UA Clarity CLEAR Normal CLEAR [facility] Comment on above: Performed By: #### 5 [id number], [id number] ####[facility] (DEFAULT)[address] [place] [address] 49253 UA Leuk Est Negative Normal NEGATIVE [facility] Comment on above: Performed By: #### 5 [id number], [id number] ####[facility] (DEFAULT)[address] [place] [address] 34465 UA Nitrite Positive Abnormal NEGATIVE [facility] Comment on above: Performed By: #### 5 [id number], [id number] ####[facility] (DEFAULT)[address] [place] [address] 82374 UA pH 5.0 Normal 5-8 [facility] Comment on above: Performed By: #### 5 [id number], [id number] ####[facility] (DEFAULT)[address] [place] [address] UA Protein 100 Abnormal NEGATIVE [facility] Comment on above: Performed By: #### 5 [id number], [id number] ####[facility] (DEFAULT)[address] [place] [address] 36083 UA Spec Grav 1.020 Normal 1.001-1.035 [facility] Comment on above: Performed By: #### 5 [id number], [id number] ####[facility] (DEFAULT)[address] [place] [address] 13202 UA Urobilinogen >=8.0 Invalid Interpretation Code 0.2-1.0 [facility] Comment on above: Performed By: #### 5 [id number], [id number] ####[facility] (DEFAULT)[address] [place] [address] 73818 Urine Source Clean Catch Normal [facility] Comment on above: Performed By: #### 5 [id number], [id number] ####[facility] (DEFAULT)[address] [place] [address] Urgent Care Note- Provideron 05-20-2020 Urgent Care Note- Provider Patient: NU RIBEIRO Age: 70 years Sex: FEMALE : 1950 Associated Diagnoses: UTI (urinary tract infection) Author: Kristopher Conway Basic Information Time seen: Date & time 05/20/2020 17:35:00. History source: Patient. History limitation: None. History of Present Illness Pt is a 70yoF complaint of urinary frequency, urgency and burning. Right flank pain. Denies nay abdominal pain. No fevers or chills no nausea or vomiting. States symptoms are similar to previous UTI symptoms. No other complaints or concerns. Took azo today. No known drug allergies. ROS Constitutional: Neg except HPI GI: Neg except HPI : Neg except HPI All systems otherwise negative PE General - alert no acute distress Skin - warm dry Head -normocephalic atraumatic Eye - normal conjunctiva Cardiovascular - regular rate regular rhythm Respiratory - lungs clear to auscultation, nonlabored respirations, breath sounds equal Gastrointestinal - soft, nontender, nondistended Health Status Allergies: Allergic Reactions (Selected) No Known Medication Allergies. Medications: (Selected) Prescriptions Prescribed gabapentin 300 mg oral capsule: 300 mg = 1 cap(s), PO, TID, for 7 day(s), 21 cap(s), 0 Refill(s) Documented Medications Documented PROzac 40 mg oral capsule: 40 mg = 1 cap(s), PO, Daily, 0 Refill(s) Topamax 25 mg oral tablet: 25 mg = 1 tab(s), PO, Daily, 0 Refill(s) cranberry oral capsule: 0 Refill(s) hydrochlorothiazide-lisbeth nopril 12.5 mg-20 mg oral tablet: 1 tab(s), PO, Daily, 0 Refill(s). Past Medical/ Family/ Social History Medical history: No active or resolved past medical history items have been selected or recorded.. Surgical history: No active procedure history items have been selected or recorded.. Family history: No family history items have been selected or recorded.. Social history: Social & Psychosocial Habits Tobacco 06/06/2018 Smoking tobacco use: Never (less than 100 in l . Problem list: Active Problems (3) Breast cancer HTN (hypertension) Hypothyroidism . Medical Decision Making Differential Diagnosis: Urinary tract infection. Orders Launch Orders Laboratory: Urinalysis with Culture, if indicated Standard (Order): Urine, Stat collect, 05/20/2020 17:35 EST, Nurse collect. Results review: Lab results : Lab Flowsheet 05/20/2020 17:35 EST UA Color Portage UA Clarity CLEAR UA Glucose 250 mg/dL UA Ketones TRACE UA Spec Grav 1.020 UA Blood NEGATIVE UA pH 5.0 UA Protein 100 UA Urobilinogen >=8.0 mg/dL UA Nitrite POSITIVE UA Leuk Est NEGATIVE UA Bilirubin NEGATIVE Urine Source Clean Catch Micro? Indicated Culture? Not Indicated UA WBC 0-2 UA RBC 0-2 UA Squam Epi Rare UA Bacteria None . Urinalysis shows positive nitrates 0-2 WBCs rare squamous epithelial cells patient treated with Bactrim for UTI. [place]age color and glucose present likely due to Azo treatment. Pt is not diabetic. Home care instructions provided, pt stated understanding of home care instructions. Follow-up with primary care provider in 5-7 days sooner if worse. Impression and Plan Diagnosis UTI (urinary tract infection) ([id number] N39.0, Discharge, Medical) Plan Prescriptions: Launch prescriptions Pharmacy: Bactrim DS 800 mg-160 mg oral tablet (Prescribe): 1 tab(s), PO, BID, for 3 day(s), 6 tab(s), 0 Refill(s). Patient was given the following educational materials: Urinary Tract Infection, Adult, Nbvk-[id number]-Rrll, Urinary Tract Infection, Adult, Tvgo-nm-Xrjw. Follow up with: Laz Duran on the Cipro this is your antibiotic, take as written until gone Begin on the azo, take as written until gone. This can help with any burning, cramping or discomfort Drink plenty of water, stay hydrated Follow-up with your primary care provider in 5-7 days for reevaluation, Laz Duran on the bactrim this is your antibiotic, take as written until gone Drink plenty of water, stay hydrated Follow-up with your primary care provider in 5-7 days for reevaluation. Counseled: Patient, Regarding diagnosis, Regarding diagnostic results, Regarding treatment plan, Regarding prescription, Patient indicated understanding of instructions. Normal [facility] Recordon 021 Urgent Care Record [facility] ? Urgent Care [address] [place] [address] PATIENT DISCHARGE INSTRUCTIONS Patient Information Name: NU RIBEIRO Age: 70 Years Date of : 1950 Reason For Visit: UC - Dysuria; PAINFUL URINATION Arrival Time: 05/20/2020 17:32:27 Primary Care Physician: Nicholas SNELL, Laz Romero Attending Physician: Kristopher Conway Comment: Visit Diagnosis: Diagnoses This Visit UC - Dysuria ([id number]) UTI (urinary tract infection) (N39.0) If you received any narcotics, sedation, or any other medication that causes drowsiness for the next 24 hours, unless otherwise directed: ? Do not drive a car. ? Do not operate machinery such as power tools, [employer], drills, sewing machines, or stoves ? Avoid alcoholic beverages and drugs for allergies, nerves, or sleep ? Do not make important personal or business decisions or sign any legal documents With: Address: When: Laz Portillo [address] [place] [address] Business (1) Comments: Begin on the bactrim this is your antibiotic, take as written until gone Drink plenty of water, stay hydrated Follow-up with your primary care provider in 5-7 days for reevaluation Medication Information: The exam and treatment you received today in the [facility] were for an urgent problem and are not intended as complete care. It is important for you to follow up with a doctor, nurse practitioner, or physician?s photo studio assistant for ongoing care. If your symptoms become worse or you do not improve as expected and you are unable to reach your usual health care provider, you should return to the Emergency Department, we are available 24 hours a day. For those patients who have received Radiology results, the interpretation of your X-ray as given to you by our Urgent Care physician is only a preliminary report. The Radiologist will review your films and if there is a change in the diagnosis you will be notified by phone. Please make sure you have provided a working phone number so we can reach you if necessary. In the event that you had a lab culture while you were a patient in the Urgent Care, you will be notified by phone if there is a need to change your antibiotic. Please make sure you have provided a working phone number so we can reach you if necessary. [facility] has provided you with a complete list of medications post discharge. Please inform your assistant teacher primary/provider of your visit and for further instruction on these medications. Any specific questions regarding your chronic medications and dosages should be discussed with your primary care physician(s) and/or pharmacist. New Medications [facility] [facility], [address] [place], [place] [id number], [phone] sulfamethoxazole-trimeth oprim (Bactrim DS 800 mg-160 mg oral tablet) 1 tab(s) Oral 2 times a day for 3 Days. Refills: 0. Medications to Continue That Have Not Changed Other Medications anastrozole (anastrozole 1 mg oral tablet) 1 tab(s) Oral every day. cranberry (cranberry oral capsule) FLUoxetine (PROzac 40 mg oral capsule) 1 cap(s) Oral every day. hydrochlorothiazide-lisbeth nopril (hydrochlorothiazide-lis inopril 12.5 mg-20 mg oral tablet) 1 tab(s) Oral every day. Visit Information Allergies: Substance Reaction Symptoms Type Comments No Known Medication Allergies Drug Vital Signs: Vitals and Measurements this Visit (last charted value for your 05/20/2020 visit) Vital Signs This Visit Temperature Oral: 36.6 DegC Peripheral Pulse Rate: 76 bpm Respiratory Rate: 16 br/min Systolic Blood Pressure: 142 mmHg Diastolic Blood Pressure: 80 mmHg Measurements This Visit Height: 165.1 cm Weight: 73.94 kg Body Mass Index: 27.13 kg/m2 Problems List: Problem Onset Comments Breast cancer HTN (hypertension) Hypothyroidism Patient Education Urinary Tract Infection, Adult A urinary tract infection (UTI) is an infection of any part of the urinary tract. The urinary tract includes: ? The kidneys. ? The ureters. ? The bladder. ? The urethra. These organs make, store, and get rid of pee (urine) in the body. What are the causes? This is caused by germs (bacteria) in your genital area. These germs grow and cause swelling (inflammation) of your urinary tract. What increases the risk? You are more likely to develop this condition if: ? You have a small, thin tube (catheter) to drain pee. ? You cannot control when you pee or poop (incontinence). ? You are female, and: ? You use these methods to prevent : ? A medicine that kills sperm (spermicide). ? A device that blocks sperm (diaphragm). ? You have low levels of a female hormone (estrogen). ? You are . ? You have genes that add to your risk. ? You are sexually active. ? You take antibiotic medi (more content not included)... [facility] Provider Orderson 04-04-2020 Provider Orders [id number] [id number] TIFF [facility] CBC Auto Differentialon 09-2 Basophils (Bld) [#/Vol] 0.10 10*3/uL [place] Basophils/100 WBC (Bld) 1 % 0 - 2 % [place] Differential Type NOT REPORTED [place] Eosinophils (Bld) [#/Vol] 0.40 10*3/uL [place] Eosinophils/100 WBC (Bld) 7 % High 0 - 4 % [place] Erythrocyte distribution width (RBC) [Ratio] 12.7 % 11.5 - 14.9 % [place] Hematocrit (Bld) [Volume fraction] 38.4 % 36 - 46 % [place] Hemoglobin (Bld) [Mass/Vol] 13.3 g/dL 12 - 16 g/dL [place] Interpretation and review of laboratory results Abnormal [place] Lymphocytes (Bld) [#/Vol] 2.00 10*3/uL [place] Lymphocytes/100 WBC (Bld) 34 % 24 - 44 % [place] MCH (RBC) [Entitic mass] 30.6 pg 26 - 34 pg [place] MCHC (RBC) [Mass/Vol] 34.6 g/dL 31 - 3 7 g/dL [place] MCV (RBC) [Entitic vol] 88.4 fL 80 - 100 fL [place] Monocytes (Bld) [#/Vol] 0.40 10*3/uL [place] Monocytes/100 WBC (Bld) 7 % 1 - 7 % [place] Platelet mean volume (Bld) [Entitic vol] 7.3 fL 6 - 12 fL [place] Platelets (Bld) [#/Vol] 226 10*3/uL [place] Platelets (Bld) [#/Vol] NOT REPORTED [place] RBC (Bld) [#/Vol] 4.34 10*6/uL 4 - 5.2 m/uL [place] RBC morphology finding Nom (Bld) NOT REPORTED [place] Segmented neutrophils/100 WBC (Bld) 51 % 36 - 66 % [place] Segs Absolute 3.00 [place] WBC (Bld) [#/Vol] NOT REPORTED per 100 WBC [place] WBC (Bld) [#/Vol] 5.9 10*3/uL [place] WBC Morphology NOT REPORTED [place], [place] Comprehensive Metabolic Pane justino 02-03-2020 Albumin [Mass/Vol] 4.3 g/dL 3.5 - 5.2 g/dL [place] Albumin/Globulin [Mass ratio] NOT REPORTED [place] ALP [Catalytic activity/Vol] 54 U/L 35 - 104 U/L [place] ALT [Catalytic activity/Vol] 14 U/L 5 - 33 U/L [place] Anion gap [Moles/Vol] 9 mmol/L 9 - 17 mmol/L [place] AST [Catalytic activity/Vol] 15 U/L <32 [place] Bilirubin Ql (U) 1.20 mg/dL 0.3 - 1.2 mg/dL [place] Bun/Cre Ratio NOT REPORTED [place] Calcium [Mass/Vol] 10.1 mg/dL 8.6 - 10. 4 mg/dL [place] Chloride [Moles/Vol] 102 mmol/L 98 - 10 7 mmol/L [place] CO2 [Moles/Vol] 27 mmol/L 20 - 31 mmol/L [place] Creatinine [Mass/Vol] 0.7 mg/dL 0.5 - 0.9 mg/dL [place] GFR >60 >60 mL/min [place] GFR Non- >60 >60 mL/min [place] GFR/1.73 sq M predicted among non-blacks MDRD (S/P/Bld) [Vol rate/Area] [place] Comment on above: Average GFR for 70 o r more years old: 75 mL/min/1.73sq m Chronic Kidney Disease: <60 mL/min/1.73sq m Kidney failure: <15 mL/min/1.73sq m eGFR calculated using average adult body mass. Additional eGFR calculator available at: http://www.[employer]/multiple_crcl_2012.htm GFR/1.73 sq M predicted among non-blacks MDRD (S/P/Bld) [Vol rate/Area] NOT REPORTED [place] Glucose [Mass/Vol] 88 mg/dL 70 - 99 mg/dL [place] Potassium [Moles/Vol] 4.7 mmol/L 3.7 - 5.3 mmol/L [place] Protein [Mass/Vol] 7.1 g/dL 6.4 - 8.3 g/dL [place] Sodium [Moles/Vol] 138 mmol/L 135 - 144 mmol/L [place] Urea nitrogen [Mass/Vol] 21 mg/dL 8 - 23 mg/dL [place] Otheron 02-03-2020 Immature granulocytes (Bld) [#/Vol] NOT REPORTED [place] TSH without Reflexon 020 TSH Qn 1.69 m[IU]/L [place] VL Upper Extremity Venous Du plex Lefton 02-03-2020 [facility] Vascular Upper Extremities Veins Procedure Patient Name KINSTLER Date of Study 02/03/2020 [facility] Date of 1950 Gender Female Age 69 year(s) Race Room Number OP Corporate ID [id number] # Patient Acct [id number] # MR # [id number] Glass Engraver Yomi Alexander Interpreting Dread Hameed Physician Referring Referring SUNG AGUAYO* Practitioner Procedure Type of Study: Veins: Upper Extremities Veins, Venous Scan Upper Left. Indications for Study:Swelling. Patient Status:Out Patient. Technical Quality:Adequate visualization. Conclusions Summary No evidence of superficial or deep venous thrombosis in the left upper extremity. Signature Findings: Right Impression: Left Impression: The subclavian vein The internal jugular, subclavian, axillary, demonstrates normal brachial, radial, and ulnar veins compressibility with phasic demonstrate normal compressibility with Doppler signal. phasic Doppler signals. Normal compressibility of the cephalic vein. Normal compressibility of the basilic vein. Velocities are measured in cm/s ; Diameters are measured in cm Right UE Vein Measurements 2D Measurements + +------- + ---------+ ---+ !Location !Visualized !Compressibility !Thrombosis ! + +------- + ---------+ ---+ !Prox SCV !Yes !Yes !None ! + +------- + ---------+ ---+ !Dist SCV !Yes !Yes !Chronic ! + +------- + ---------+ ---+ Doppler Measurements + --+ --+ ---+ !Location !Signal !Reflux ! + --+ --+ ---+ !SCV !Phasic ! ! + --+ --+ ---+ Left UE Vein Measurements 2D Measurements + + + +------- ---+ !Location !Visualized!Compressibil ity!Thrombosis! + + + +------- ---+ !Prox IJV !Yes !Yes !None ! + + + +------- ---+ !Dist IJV !Yes !Yes !None ! + + + +------- ---+ !Prox SCV !Yes !Yes !None ! + + + +------- ---+ !Dist SCV !Yes !Yes !None ! + + + +------- ---+ !Innominate !No ! ! ! + + + +------- ---+ !Prox Axillary !Yes !Yes !None ! + + + +------- ---+ !Dist Axillary !Yes !Yes !None ! + + + +------- ---+ !Prox Brachial !Yes !Yes !None ! + + + +------- ---+ !Dist Brachial !Yes !Yes !None ! + + + +------- ---+ !Prox Radial !Yes !Yes !None ! + + + +------- ---+ !Dist Radial !Yes !Yes !None ! + + + +------- ---+ !Prox Ulnar !Yes !Yes !None ! + + + +------- ---+ !Dist Ulnar !Yes !Yes !None ! + + + +------- ---+ !Basilic at UA !Yes !Yes !None ! + + + +------- ---+ !Basilic at AF !Yes !Yes !None ! + + + +------- ---+ !Basilic at LA !Yes !Yes !None ! + + + +------- ---+ !Cephalic at UA !No ! ! ! + + + +------- ---+ !Cephalic at AF !Yes !Yes !None ! + + + +------- ---+ !Cephalic at LA !Yes !Yes !None ! + + + +------- ---+ Doppler Measurements + --+ --+ ---+ !Location !Signal !Reflux ! + --+ --+ ---+ !IJV !Phasic ! ! + --+ --+ ---+ !SCV !Phasic ! ! + --+ --+ ---+ !Axillary !Phasic ! ! + --+ --+ ---+ !Brachial !Phasic ! ! + --+ --+ ---+ [facility] [place], [place] Tao, pn Incoming Cardio Results From [facility] - 02/03/2020 9:17 PM EDT [facility] Vascular Upper Extremities Veins Procedure Patient Name QUINTIN Date of Study 02/03/2020 NU Ibarra Date of 1950 Gender Female Age 69 year(s) Race Room Number OP Corporate ID [id number] # Patient Acct [id number] # MR # [id number] Glass Engraver Yomi Alexander Interpreting Dread Hameed Physician Referring Referring SUNG AGUAYO Nurse Physician JANNETH* Practitioner Procedure Type of Study: Veins: Upper Extremities Veins, Venous Scan Upper Left. Indications for Study:Swelling. Patient Status:Out Patient. Technical Quality:Adequate visualization. Conclusions Summary No evidence of superficial or deep venous thrombosis in the left upper extremity. Signature Findings: Right Impression: Left Impression: The subclavian vein The internal jugular, subclavian, axillary, demonstrates normal brachial, radial, and ulnar veins compressibility with phasic demonstrate normal compressibility with Doppler signal. phasic Doppler signals. Normal compressibility of the cephalic vein. Normal compressibility of the basilic vein. Velocities are measured in cm/s ; Diameters are measured in cm Right UE Vein Measurements 2D Measurements + +------- + ---------+ --- + !Location !Visualized !Compressibility !Thrombosis ! + +------- + ---------+ --- + !Prox SCV !Yes !Yes !None ! + +------- + ---------+ --- + !Dist SCV !Yes !Yes !Chronic ! + +------- + ---------+ --- + Doppler Measurements + --+ --+ --- + !Location !Signal !Reflux ! + --+ --+ --- + !SCV !Phasic ! ! + --+ --+ --- + Left UE Vein Measurements 2D Measurements + + + +------- --- + !Location !Visualized!Compressibil ity!Thrombosis! + + + +------- --- + !Prox IJV !Yes !Yes !None ! + + + +------- --- + !Dist IJV !Yes !Yes !None ! + + + +------- --- + !Prox SCV !Yes !Yes !None ! + + + +------- --- + !Dist SCV !Yes !Yes !None ! + + + +------- --- + !Innominate !No ! ! ! + + + +------- --- + !Prox Axillary !Yes !Yes !None ! + + + +------- --- + !Dist Axillary !Yes !Yes !None ! + + + +------- --- + !Prox Brachial !Yes !Yes !None ! + + + +------- --- + !Dist Brachial !Yes !Yes !None ! + + + +------- --- + !Prox Radial !Yes !Yes !None ! + + + +------- --- + !Dist Radial !Yes !Yes !None ! + + + +------- --- + !Prox Ulnar !Yes !Yes !None ! + + + +------- --- + !Dist Ulnar !Yes !Yes !None ! + + + +------- --- + !Basilic at UA !Yes !Yes !None ! + + + +------- --- + !Basilic at AF !Yes !Yes !None ! + + + +------- --- + !Basilic at LA !Yes !Yes !None ! + + + +------- --- + !Cephalic at UA !No ! ! ! + + + +------- --- + !Cephalic at AF !Yes !Yes !None ! + + + +------- --- + !Cephalic at LA !Yes !Yes !None ! + + + +------- --- + Doppler Measurements + --+ --+ --- + !Location !Signal !Reflux ! + --+ --+ --- + !IJV !Phasic ! ! + --+ --+ --- + !SCV !Phasic ! ! + --+ --+ --- + !Axillary !Phasic ! ! + --+ --+ --- + !Brachial !Phasic ! ! + --+ --+ --- + [facility] X[facility] SHOULDER LEFT (MIN 2 VIEW S)on 11-12-2019 1. No acute bony or joint abnormality 2. AC joint and glenohumeral joint degenerative changes [facility] THREE X RAY VIEWS OF THE LEFT SHOULDER 11/12/2019 2:06 pm COMPARISON: None. HISTORY: ORDERING SYSTEM PROVIDED HISTORY: Rotator cuff arthropathy of left shoulder TECHNOLOGIST PROVIDED HISTORY: Reason for Exam: chronic shoulder pain Acuity: Chronic Type of Exam: Initial FINDINGS: Alignment is anatomic. 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 No fractures or destructive bony abnormalities are identified. [facility] Tao, pn Incoming Radiant Results From [employer] - 11/12/2019 2:24 PM EDT EXAMINATION: THREE XRAY VIEWS OF THE LEFT SHOULDER 11/12/2019 2:06 pm COMPARISON: None. HISTORY: ORDERING SYSTEM PROVIDED HISTORY: Rotator cuff arthropathy of left shoulder TECHNOLOGIST PROVIDED HISTORY: Reason for Exam: chronic shoulder pain Acuity: Chronic Type of Exam: Initial FINDINGS: Alignment is anatomic. 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 No fractures or destructive bony abnormalities are identified. IMPRESSION: 1. No acute bony or joint abnormality 2. AC joint and glenohumeral joint degenerative changes [facility] W OR WO CAD LEFTon 07-31-2019 Stable post treatmen t changes left breast without evidence of malignancy. Patient due for a bilateral mammogram in December 2019. BI-RADS 2 BIRADS: BIRADS - CATEGORY 2 Benign, no evidence of malignancy. Bilateral mammogram due in December 2019. OVERALL ASSESSMENT - BENIGN A letter of notification will be sent to the patient regarding the results. [employer] recommends annual mammograms for women 40 years and older. [place], [place] EXAMINATION: DIAGNOS TIC DIGITAL LEFT BREAST MAMMOGRAM, 07/31/2019 8:30 am TECHNIQUE: Diagnostic mammography of the left breast was performed. Computer aided detection was utilized in the interpretation of this exam. Views: MLO and craniocaudal full field digital mammographic images of the left breast with 3D tomosynthesis. COMPARISON: 30 January 2019 HISTORY: ORDERING SYSTEM PROVIDED HISTORY: Abnormal mammogram Follow-up diagnostic mammogram. Left lumpectomy for breast cancer May 2018. FINDINGS: The left breast is composed of scattered fibroglandular density. Stable post treatment changes are present in the left breast upper outer segment. Stable mild anterior skin thickening and scarring is noted. No nipple contour changes, malignant type microcalcifications, new areas of architectural distortion, or significant interval changes are noted. Patient is due for a bilateral mammogram in January 2020. [place], [place] Tao, M[facility] Incoming Radiant Results From [employer] - 07/31/2019 6:05 PM EDT EXAMINATION: DIAGNOSTIC DIGITAL LEFT BREAST MAMMOGRAM, 07/31/2019 8:30 am TECHNIQUE: Diagnostic mammography of the left breast was performed. Computer aided detection was utilized in the interpretation of this exam. Views: MLO and craniocaudal full field digital mammographic images of the left breast with 3D tomosynthesis. COMPARISON: 30 January 2019 HISTORY: ORDERING SYSTEM PROVIDED HISTORY: Abnormal mammogram Follow-up diagnostic mammogram. Left lumpectomy for breast cancer May 2018. FINDINGS: The left breast is composed of scattered fibroglandular density. Stable post treatment changes are present in the left breast upper outer segment. Stable mild anterior skin thickening and scarring is noted. No nipple contour changes, malignant type microcalcifications, new areas of architectural distortion, or significant interval changes are noted. Patient is due for a bilateral mammogram in January 2020. IMPRESSION: Stable post treatment changes left breast without evidence of malignancy. Patient due for a bilateral mammogram in December 2019. BI-RADS 2 BIRADS: BIRADS - CATEGORY 2 Benign, no evidence of malignancy. Bilateral mammogram due in December 2019. OVERALL ASSESSMENT - BENIGN A letter of notification will be sent to the patient regarding the results. [employer] recommends annual mammograms for women 40 years and older. [facility] Otheron 01-30-2019 No evidence of malignancy. Post treatment changes left breast. On ultrasound, the patient has a sizable area underneath her scar consistent with a seroma. Six-month mammographic follow-up of the left breast is advised as part of a post lumpectomy screening protocol. BI-RADS 3 BIRADS: BIRADS - CATEGORY 3 Findings are probably benign. A short interval follow-up i left breast mammography s recommended in 6 months. OVERALL ASSESSMENT -PROBABLY BENIGN. A letter of notification will be sent to the patient regarding the results. [facility] EXAMINATION: BILATER AL DIGITAL DIAGNOSTIC MAMMOGRAM; TARGETED ULTRASOUND OF THE LEFT BREAST 01/30/2019 1:35 pm; 01/30/2019 2:06 pm TECHNIQUE: Diagnostic mammography of the bilateral breasts was performed. Computer aided detection was utilized in the interpretation of this exam.; Target ultrasound of the left breast was performed. VIEWS: MLO and craniocaudal full field digital mammographic images of both breasts with 3D tomosynthesis. COMPARISON: December 12, 2017. Left breast ultrasound August 11, 2018 HISTORY: ORDERING SYSTEM PROVIDED HISTORY: History of breast cancer TECHNOLOGIST PROVIDED HISTORY: infiltrating ductal carcinoma of left breast. ; ORDERING SYSTEM PROVIDED HISTORY: Lump in female breast Patient is status post lumpectomy and radiation therapy in 2019. Prior aspiration of a seroma. FINDINGS: Mammogram: The breasts are composed of scattered fibroglandular density. Scar is noted in the left breast, within normal limits for post lumpectomy and radiation patient. A sizable mass is present upper outer left breast with ultrasound evaluation advised. No suspicious calcifications are noted. Right breast appearance is unremarkable. Ultrasound: Targeted ultrasonography over area of density and palpable asymmetry in the left breast underneath the patient's scar reveals an ovoid well-demarcated structure with a debris fluid level at 2 o'clock 7 cm from the nipple measuring 4.3 x 2.3 cm. Mild anterior wall thickening is noted. Appearance is typical of a seroma. The patient had a seroma in this location of 4.42 x 6.1 x 1.26 cm on prior study performed in August reportedly aspirated. [facility], [facility] Incoming Radiant Results From [employer] - 01/30/2019 4:33 PM EDT EXAMINATION: BILATERAL DIGITAL DIAGNOSTIC MAMMOGRAM; TARGETED ULTRASOUND OF THE LEFT BREAST 01/30/2019 1:35 pm; 01/30/2019 2:06 pm TECHNIQUE: Diagnostic mammography of the bilateral breasts was performed. Computer aided detection was utilized in the interpretation of this exam.; Target ultrasound of the left breast was performed. VIEWS: MLO and craniocaudal full field digital mammographic images of both breasts with 3D tomosynthesis. COMPARISON: December 12, 2017. Left breast ultrasound August 11, 2018 HISTORY: ORDERING SYSTEM PROVIDED HISTORY: History of breast cancer TECHNOLOGIST PROVIDED HISTORY: infiltrating ductal carcinoma of left breast. ; ORDERING SYSTEM PROVIDED HISTORY: Lump in female breast Patient is status post lumpectomy and radiation therapy in 2019. Prior aspiration of a seroma. FINDINGS: Mammogram: The breasts are composed of scattered fibroglandular density. Scar is noted in the left breast, within normal limits for post lumpectomy and radiation patient. A sizable mass is present upper outer left breast with ultrasound evaluation advised. No suspicious calcifications are noted. Right breast appearance is unremarkable. Ultrasound: Targeted ultrasonography over area of density and palpable asymmetry in the left breast underneath the patient's scar reveals an ovoid well-demarcated structure with a debris fluid level at 2 o'clock 7 cm from the nipple measuring 4.3 x 2.3 cm. Mild anterior wall thickening is noted. Appearance is typical of a seroma. The patient had a seroma in this location of 4.42 x 6.1 x 1.26 cm on prior study performed in August reportedly aspirated. IMPRESSION: No evidence of malignancy. Post treatment changes left breast. On ultrasound, the patient has a sizable area underneath her scar consistent with a seroma. Six-month mammographic follow-up of the left breast is advised as part of a post lumpectomy screening protocol. BI-RADS 3 BIRADS: BIRADS - CATEGORY 3 Findings are probably benign. A short interval follow-up i left breast mammography s recommended in 6 months. OVERALL ASSESSMENT -PROBABLY BENIGN. A letter of notification will be sent to the patient regarding the results. [facility] STEREO BREAST BX W LOC D EVICE 1ST LESION LEFTon 12-31-2017 NGUYEN STEREO BREAST BX W LOC DEVICE 1ST LESION LEFT ADDENDUM:ADDENDUM FOR PATHOLOGY -Radiologic-pathologic correlation.Pathology results demonstrate ---Prominent stromal sclerosis. Focal atypical lobular hyperplasia. Negativefor ductal hyperplasia or malignancy..IMPRESSION -The pathology diagnosis is benign but high risk and concordant with theimaging findings.Surgical consultation is recommended.Electronical ly Signed by: LIZBETH LEES on SatDec 30, 2017 10:43:37 PM EDTEXAMINATION:STEREOTAC TIC LEFT BREAST BIOPSY WITH VACUUM-ASSISTSTEREOTACTI C CLIP PLACEMENTPOSTPROCEDURE UNILATERAL DIGITAL MAMMOGRAM HISTORY:ORDERING SYSTEM PROVIDED HISTORY: Mammographic finding of distortion.Sonographic biopsy of benign breast tissue in this region. Furtherevaluation of the mammographic distortion was recommended.COMPARISON:U ltrasound-guided biopsy and post biopsy mammogram December 18, 2017. Leftdiagnostic mammogram December 12, 2017 and bilateral screening December 04, 2017.PROCEDURE:A timeout was performed to confirm patient identification and site ofprocedure. Risks, benefits, and alternatives of the procedure were discussed.Informed written consent was obtained.The subtle area of distortion in the upper outer quadrant, near the recentlyplaced ribbon shaped biopsy clip was identified with tomosynthesis. Thepatient was prepped and draped in the standard sterile fashion and 1%lidocaine was used for local anesthesia. Using a lateral approach, an 10gauge vacuum assisted needle was positioned under stereotactic guidance tothe targeted site with tomographic guidance. 1% lidocaine with epinephrinewas administered for deep anesthesia. 6 core samples were obtained. Thespecimen was not radiographed, as the target contained no calcifications.FINDINGS: CLIP PLACEMENT:Following the tissue sampling, a stereotactic clip (M shaped) was placed atthe biopsy site. The stereotactic needle was removed and pressure applied forhemostasis.The patient tolerated the procedure well with no immediate complications.POST-PROCE DURE MAMMOGRAM:ML and CC views were performed and compared to the pre biopsy images. The newM shaped biopsy clip is in the correct region with respect to the targetedsite, however breast parenchymal detail is obscured by post biopsy changesand small hematoma. There is no evidence of biopsy clip migration from thebiopsy site.IMPRESSION: Technically successful stereotactic biopsy of subtle area of noncalcifieddistortion in the upper outer left breast and M shaped clip marker placementas described above.BIRADS:ZW - Pathology pending.Interpreted by:FAIZAN Larsenigned by:Lizbeth Lees MD12/30/17Edited Result - FINAL Normal [facility] MAMMOGRAM POST BX CLIP PLACE MADYSON Thomas 12-31-2017 MAMMOGRAM POST BX CLIP PLACEMENT LEFT ADDENDUM:ADDENDUM FOR PATHOLOGY -Radiologic-pathologic correlation.Pathology results demonstrate ---Prominent stromal sclerosis. Focal atypical lobular hyperplasia. Negativefor ductal hyperplasia or malignancy..IMPRESSION -The pathology diagnosis is benign but high risk and concordant with theimaging findings.Surgical consultation is recommended.Electronical ly Signed by: LIZBETH LEES on SatDec 30, 2017 10:43:40 PM EDTEXAMINATION:STEREOTAC TIC LEFT BREAST BIOPSY WITH VACUUM-ASSISTSTEREOTACTI C CLIP PLACEMENTPOSTPROCEDURE UNILATERAL DIGITAL MAMMOGRAM HISTORY:ORDERING SYSTEM PROVIDED HISTORY: Mammographic finding of distortion.Sonographic biopsy of benign breast tissue in this region. Furtherevaluation of the mammographic distortion was recommended.COMPARISON:U ltrasound-guided biopsy and post biopsy mammogram December 18, 2017. Leftdiagnostic mammogram December 12, 2017 and bilateral screening December 04, 2017.PROCEDURE:A timeout was performed to confirm patient identification and site ofprocedure. Risks, benefits, and alternatives of the procedure were discussed.Informed written consent was obtained.The subtle area of distortion in the upper outer quadrant, near the recentlyplaced ribbon shaped biopsy clip was identified with tomosynthesis. Thepatient was prepped and draped in the standard sterile fashion and 1%lidocaine was used for local anesthesia. Using a lateral approach, an 10gauge vacuum assisted needle was positioned under stereotactic guidance tothe targeted site with tomographic guidance. 1% lidocaine with epinephrinewas administered for deep anesthesia. 6 core samples were obtained. Thespecimen was not radiographed, as the target contained no calcifications.FINDINGS: CLIP PLACEMENT:Following the tissue sampling, a stereotactic clip (M shaped) was placed atthe biopsy site. The stereotactic needle was removed and pressure applied forhemostasis.The patient tolerated the procedure well with no immediate complications.POST-PROCE DURE MAMMOGRAM:ML and CC views were performed and compared to the pre biopsy images. The newM shaped biopsy clip is in the correct region with respect to the targetedsite, however breast parenchymal detail is obscured by post biopsy changesand small hematoma. There is no evidence of biopsy clip migration from thebiopsy site.IMPRESSION: Technically successful stereotactic biopsy of subtle area of noncalcifieddistortion in the upper outer left breast and M shaped clip marker placementas described above.BIRADS:ZW - Pathology pending.Interpreted by:FAIZAN Larsenigned by:Lizbeth Lees MD12/30/17Edited Result - FINAL Normal [facility] Surgical Pathologyon 018 Surgical Pathology (NOTE)[id number] LABORATORIESCONSULTING PATHOLOGISTS CORPORATIONANATOMIC [id number] [place] [address] [phone] Fax: SURGICAL PATHOLOGY CONSULTATIONPatient Name: [facility] Rec: [id number] Number: [id number]: 12/26/2017Received: 12/26/2017Reported: 12/27/2017 12:48-- Diagnosis --LEFT BREAST, 1:00, STEREOTACTIC CORE NEEDLE BIOPSIES: -PROMINENT STROMAL SCLEROSIS. -FOCAL ATYPICAL LOBULAR HYPERPLASIA. -NEGATIVE FOR DUCTAL HYPERPLASIA OR MALIGNANCY.Jonny Herrmann M.D.Electronically Signed Out 12/27/2017Clinical InformationPre-op Diagnosis: LT BREAST MASS Operative Findings: LEFT 1:00Operation Performed: STEREO BXSource of Specimen1: LEFT 1:00Gross Description NU RIBEIRO, BREAST 1:00 Pale yellow-red cores andfragments of fibrofatty tissue, 5.0 x 4.0 x 0.3 cm in aggregate. Entirely 2cs. jg tmMicroscopic DescriptionSections of fibroglandular breast tissue show prominent stromalsclerosis. Focal lobules show slight expansion of epithelial cells.There is no evidence of carcinoma in situ or invasive malignancy. Slides were reviewed with a second pathologist (MILENA) who agrees withthe diagnosis. Normal [facility] Comment on above: Performed By: #### P PPVS ####[address] [address] Vital Signs Date Time Vital Sign Value Performing Clinician Facility 01-11-2023 14:27-0400 Body height 161.3 cm Allyssa Lopez APRN.[employer]NS[employer] Work Phone: [facility] 01-11-2023 14:27-0400 Body temperature 97.7 [degF] Allyssa Lopez FOREST LOGISTICS MANAGER.[employer]CIAL INTERNSHIP Work Phone: [facility] 01-11-2023 14:27-0400 Body weight 73.75 kg Allyssa Lopez APRN.[employer] INTERNSH[employer] Work Phone: [facility] 01-11-2023 14:27-0400 Diastolic blood pressure 59 mm[Hg] Allyssa Lopez FOREST LOGISTICS MANAGER.[employer] INTERNSHIP Work Phone: [facility] 01-11-2023 14:27-0400 Heart rate 75 /min Allyssa Lopez FOREST LOGISTICS MANAGER.[employer]NS[employer] Work Phone: [facility] 01-11-2023 14:27-0400 Respiratory rate 16 /min Allyssa Lopez FOREST LOGISTICS MANAGER.[employer]NS[employer] Work Phone: [facility] 01-11-2023 14:27-0400 SaO2% (BldA) [Mass fraction] 98 % Allyssa Lopez FOREST LOGISTICS MANAGER.[employer] INTERNSHIP Work Phone: [facility] 01-11-2023 14:27-0400 Systolic blood pressure 125 mm[Hg] Allyssa Lopez FOREST LOGISTICS MANAGER.[employer] INTERNSHIP Work Phone: [facility] 08-16-2022 14:40-0400 Body temperature 97.3 [degF] Josesito Basurto MD Work Phone: [facility] 08-16-2022 14:40-0400 Diastolic blood pressure 74 mm[Hg] Josesito Basurto MD Work Phone: [employer] 08-16-2022 14:40-0400 Heart rate 55 /min Josesito Basurto MD Work Phone: [employer] 08-16-2022 14:40-0400 Respiratory rate 12 /min Josesito Basurto MD Work Phone: [facility] 08-16-2022 14:40-0400 SaO2% (BldA) [Mass fraction] 98 % Josesito Basurto MD Work Phone: [employer] 08-16-2022 14:40-0400 Systolic blood pressure 169 mm[Hg] Josesito Basurto MD Work Phone: [employer] 08-16-2022 11:25-0400 Body height 165.1 cm Josesito Basurto MD Work Phone: [employer] 08-16-2022 11:25-0400 Body mass index (BMI) [Ratio] 27.46 kg/m2 Josesito Basurto MD Work Phone: [employer] 08-16-2022 11:25-0400 Body weight 74.84 kg Josesito Basurto MD Work Phone: [employer] 07-12-2022 14:45-0500 Diastolic blood pressure 66 mm[Hg] Josesito Basurto MD Work Phone: [employer] 07-12-2022 14:45-0500 Respiratory rate 17 /min Josesito Basurto MD Work Phone: [employer] 07-12-2022 14:45-0500 SaO2% (BldA) [Mass fraction] 95 % Josesito Basurto MD Work Phone: [employer] 07-12-2022 14:45-0500 Systolic blood pressure 167 mm[Hg] Josesito Basurto MD Work Phone: [employer] 07-12-2022 14:40-0500 Body temperature 97.3 [degF] Josesito Basurto MD Work Phone: [employer] 07-12-2022 14:40-0500 Heart rate 56 /min Josesito Basurto MD Work Phone: [employer] 07-12-2022 11:50-0500 Body height 165.1 cm Josesito Basurto MD Work Phone: [employer] 07-12-2022 11:50-0500 Body mass index (BMI) [Ratio] 27.46 kg/m2 Josesito Basurto MD Work Phone: [facility] 07-12-2022 11:50-0500 Body weight 74.84 kg Josesito Basurto MD Work Phone: [facility] 05-30-2022 19:00-0500 Body height 165.1 cm Татьяна Guerrero Other [employer] Other 05-30-2022 19:00-0500 Body mass index (BMI) [Ratio] 27.45 kg/m2 Татьяна Guerrero Other [employer] Other 05-30-2022 19:00-0500 Body temperature 98 [degF] Татьяна Guerrero Other [employer] Other 05-30-2022 19:00-0500 Body weight 74.84 kg Татьяна Yolanda Other [employer] Other 05-30-2022 19:00-0500 Diastolic blood pressure 74 mm[Hg] Татьяна Guerrero Other [employer] Other 05-30-2022 19:00-0500 Respiratory rate 18 /min Татьяна Guerrero Other [employer] Other 05-30-2022 19:00-0500 SaO2% (BldA) [Mass fraction] 98 % Татьяна Guerrero Other [employer] Other 05-30-2022 19:00-0500 Systolic blood pressure 154 mm[Hg] Татьяна Guerrero Other [employer] Other Encounters Encounter Date Encounter Type Care Provider Facility Start: 01-11-2023 End: 01-12-2023 ambulatory Allyssa Lopez APRN.[employer] Work Phone: Hematology/Oncology Comment on above: Malignant neoplasm o f upper-outer quadrant of left breast in female, estrogen receptor positive (HCC) (Primary Dx); 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 therapy Osteopenia due to ca ncer therapy (Primary Dx); Malignant neoplasm of upper-outer quadrant of left breast in female, estrogen receptor positive (HCC) Start: 01-11-2023 End: 01-11-2023 Patient encounter procedure Allyssa Lopez APRN.[employer] Work Phone: [facility] Start: 08-16-2022 End: 08-16-2022 ambulatory [facility] Start: 08-16-2022 End: 08-16-2022 Subsequent hospital visit by physician Josesito Basurto MD Work Phone: [facility] Start: 07-20-2022 End: 07-20-2022 ambulatory GATO CANO Facility:[facility] Start: 07-17-2022 Telephone encounter Gato olivares MD Work Phone: Hematology/Oncology Comment on above: Lab Orders Start: 07-12-2022 End: 07-12-2022 ambulatory [facility] Start: 07-12-2022 End: 07-12-2022 Subsequent hospital visit by physician Josesito Basurto MD Work Phone: [facility] Start: 07-05-2022 End: 07-10-2022 ambulatory LAZ Romero [facility] Start: 07-03-2022 End: 07-04-[address] ALLYSSA LOPEZ Facility: Start: 05-30-2022 End: 05-30-2022 ambulatory Татьяна Guerrero Other [employer] Other Start: 05-30-2022 Office outpatient ne w 20 minutes Татьяна Guerrero [facility] Start: 02-20-2022 End: 02-21-2022 ambulatory GARO Farnsworth Facility:[facility] Start: 01-28-2022 End: 01-28-[address] DOCTOR MORALES Facility:[facility] Start: 09-28-2021 Telephone encounter [facility]ato olivares MD [facility] Comment on above: Patient Update Start: 09-22-2021 Telephone encounter Gato olivares MD Work Phone: Hematology/Oncology Comment on above: Lab Orders Start: 11-29-2020 End: 11-29-2020 Subsequent hospital visit by physician Laz Portillo MD Work Phone: [facility] Start: 09-20-2020 End: 09-20-2020 Subsequent hospital visit by physician [facility] Comment on above: Arrived Syncope, unspecified syncope type Hypertension, unspec ified type; Fatigue, unspecified type Start: 02-03-2020 End: 02-03-2020 Subsequent hospital visit by physician [facility] Comment on above: Swelling of limb; Malignant neoplasm of upper-outer quadrant of left breast in female, estrogen receptor positive (HCC) Chronic fatigue; Cancer of breast, intraductal, left Start: 11-12-2019 End: 11-14-2019 Subsequent hospital visit by physician [facility] Xr Room 4 [facility] Radiology Comment on above: Rotator cuff arthrop athy of left shoulder Start: 07-31-2019 End: 08-02-2019 Subsequent hospital visit by physician [facility] Jef Mammo [facility] Mammography Comment on above: Abnormal mammogram Start: 01-30-2019 End: 02-01-2019 Subsequent hospital visit by physician [facility] Sherryg Mammo [facility] Mammography Comment on above: History of breast ca ncer Lump in female breas t Start: 12-26-2017 End: 12-29-2017 Patient encounter TRIPP PORTILLO [facility] Procedures Date Procedure Procedure Detail Performing Clinician Start: 11-29-2020 Cyanocobalamin vitamin b-12 Raul Swan Work Phone: Start: 09-20-2020 Comprehensive metabo lic panel Laz Portillo MD Work Phone: Start: 09-20-2020 Lipid panel Lza Portillo MD Work Phone: Start: 09-20-2020 Dup-scan xtr veins unilateral/limited study Laz Portillo MD Work Phone: Start: 09-20-2020 Echo tthrc r-t 2d w/wom-mode compl spec&colr d Laz Portillo MD Work Phone: Start: 02-03-2020 Assay of thyroid stimulating hormone tsh Laz Portillo Work Phone: Start: 02-03-2020 Blood count complete auto&auto difrntl wbc Laz Portillo Work Phone: Start: 02-03-2020 Comprehensive metabo lic panel Laz Portillo Work Phone: Start: 02-03-2020 Dup-scan xtr veins unilateral/limited study Laz Portillo Work Phone: Start: 11-12-2019 Radex shoulder compl ete minimum 2 views Laz Portillo Work Phone: Start: 10-29-2019 Adult depression scr eening assessment Gato Cano MD Work Phone: Start: 07-31-2019 Tomosynthesis, mammo screen Estiven Canela Work Phone: Start: 01-30-2019 Us breast uni real t karla with image limited Sulaiman Romero Aiyana Work Phone: Start: 01-30-2019 Tomosynthesis, mammo screen Sulaiman Romero Aiyana Work Phone: Start: 06-26-2018 Colonoscopy Josesito Basurto MD Work Phone: Start: 12-26-2017 SURGICAL PATHOLOGY RANI PORTILLO Start: 12-26-2017 Diagnostic mammograp hy computer-aided detcj uni TRIPP PORTILLO Start: 12-26-2017 Bx breast w/device 1 st lesion stereotactic deborah PORTILLO Plan of Treatment Date Care Activity Detail Author Start: 06-26-2028 Colon cancer screen colonoscopy Colon cancer screen colonoscopy [place] Start: 06-26-2028 Screening for malign ant neoplasm of colon [place] [facility] Start: 01-11-2026 DIABETES SCREEN DIABETES SCREEN [facility] Start: 09-20-[address] [facility] Start: 03-23-2024 DIABETES SCREEN DIABETES SCREEN [facility] Start: 01-12-2024 BP CONTROLLED (<130/80) BP CONTROLLE D (<130/80) [facility] Start: 07-26-2023 Depression Monitoring Depression Mon itoring [facility] Start: 07-21-2023 BP CONTROLLED (<130/80) BP CONTROLLE D (<130/80) [facility] Start: 07-12-2023 End: 09-11-2023 CBC W Auto Differential panel - Blood CBC + DIFF Lab Routine Malignant neoplasm of upper-outer quadrant of left breast in female, estrogen receptor positive (HCC) 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 therapy Expected: 07/12/2023, Expires: 09/11/2023 [facility] Work Phone: Comment on above: Expected: 07/12/2023 , Expires: 09/11/2023 Start: 07-12-2023 End: 09-11-2023 Comprehensive metabolic 2000 panel - Serum or Plasma COMP METABOLIC PANEL Lab Routine Malignant neoplasm of upper-outer quadrant of left breast in female, estrogen receptor positive (HCC) 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 therapy Expected: 07/12/2023, Expires: 09/11/2023 [facility] Work Phone: Comment on above: Expected: 07/12/2023 , Expires: 09/11/2023 Start: 04-27-2023 Annual Wellness Visi t (AWV) Annual Wellness Visit (AWV) [facility] Start: 04-26-2023 Depression Monitoring Depression Mon itoring [facility] Start: 04-26-2023 DTaP/Tdap/Td vaccine (1 - Tdap) DTaP/Tdap/Td vaccine (1 - Tdap) [facility] Comment on above: Postponed from 02/21 (Patient Refused) Start: 03-03-2023 Screening for malign ant neoplasm of breast Breast cancer screen [facility] Start: 01-11-2023 Influenza vaccination INFLUENZA (#1) [facility] Start: 12-04-2022 Lipid panel Lipid screen [facility] [place], [place] Start: 12-04-2022 Lipid screen Lipid screen [facility] [place], [place] Start: 10-26-2022 End: 10-26-2022 Patient encounter procedure 10/26/2022 Office Visit Primary Care Laz Portillo MD [address] [place] [id number] [facility] Start: 10-25-2022 COVID-19 Vaccine (3 - Booster for Moderna series) COVID-19 Vaccine (3 - Booster for Moderna series) [facility] Comment on above: Postponed from 09/20 (Patient Refused) Start: 09-24-2022 Pneumococcal 65+ yea rs Vaccine (1 - PCV) Pneumococcal 65+ years Vaccine (1 - PCV) [facility] Comment on above: Postponed from 02/21 (Patient Refused) Start: 08-16-2022 End: 08-16-2022 Xcapsl ctrc rmvl insj io lens prosth w/o ecp EYE CATARACT EMULSIFICATION IOL IMPLANT Cataract of right eye, unspecified cataract type 08/16/2022 1:34 PM EDT [facility] Start: 07-25-2022 Shingles vaccine (1 of 2) Shingles vaccine (1 of 2) [facility] Comment on above: Postponed from 02/21 (Patient Refused) Start: 07-25-2022 End: 07-25-2022 Patient encounter procedure 07/25/2022 Office Visit Primary Care Mary Katz, [employer] [address] [place] [address] [facility] Start: 07-12-2022 End: 07-12-2022 Xcapsl ctrc rmvl insj io lens prosth w/o ecp EYE CATARACT EMULSIFICATION IOL IMPLANT Cataract, nuclear sclerotic, left eye 07/12/2022 1:33 PM [facility] Start: 05-13-2022 ADVANCE DIRECTIVE DISCUSSION ADVANCE DIRECTIVE DISCUSSION [facility] Start: 05-13-2022 DEPRESSION ASSESSMENT DEPRESSION ASS ESSMENT [facility] Start: 01-11-2022 Influenza vaccination INFLUENZA (Sea son Ended) [facility] Start: 10-02-2021 End: 09-23-2022 CBC W Auto Differential panel - Blood CBC + DIFF Lab Routine Malignant neoplasm of upper-outer quadrant of left breast in female, estrogen receptor positive (HCC) 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 therapy Expected: 10/02/2021 (Approximate), Expires: 09/23/2022 [facility] Work Phone: Comment on above: Expected: 10/02/2021 (Approximate), Expires: 09/23/2022 Start: 10-02-2021 End: 09-23-2022 Comprehensive metabolic 2000 panel - Serum or Plasma COMP METABOLIC PANEL Lab Routine Malignant neoplasm of upper-outer quadrant of left breast in female, estrogen receptor positive (HCC) 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 therapy Expected: 10/02/2021 (Approximate), Expires: 09/23/2022 [facility] Work Phone: Comment on above: Expected: 10/02/2021 (Approximate), Expires: 09/23/2022 Start: 10-02-2021 End: 12-02-2021 VITAMIN D 25 HYDROXY VITAMIN D 25 HYDROXY Lab Routine Malignant neoplasm of upper-outer quadrant of left breast in female, estrogen receptor positive (HCC) 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 therapy Expected: 10/02/2021 (Approximate), Expires: 12/02/2021 [facility] Work Phone: Comment on above: Expected: 10/02/2021 (Approximate), Expires: 12/02/2021 Start: 09-20-2021 Creatinine measurement Creatinine mo [facility] Work Phone: Start: 09-20-2021 Potassium monitoring Potassium monit [facility] Work Phone: Start: 05-13-2021 ADVANCE DIRECTIVE DISCUSSION ADVANCE DIRECTIVE DISCUSSION [facility] Start: 01-13-2021 End: 01-13-2021 Patient encounter procedure 01/13/2021 Office Visit Family Laz Pendleton MD [address] [place] [id number] [phone] [facility] Start: 01-11-2021 Influenza vaccination Flu vaccine (# 1) [facility] Work Phone: Start: 10-28-2020 Adult depression screening assessment DEPRESSION SCREENING [facility] Start: 09-28-2020 End: 09-28-2020 Patient encounter procedure 09/28/2020 Office Visit Family Laz Pendleton MD [address] [place] [id number] [phone] [facility] Start: 09-20-2020 COVID-19 VACCINE (3 - Booster for Moderna series) COVID-19 VACCINE (3 - Booster for Moderna series) [facility] Start: 09-20-2020 COVID-19 VACCINE (3 - Moderna series) COVID-19 VACCINE (3 - Moderna series) [facility] Start: 08-23-2020 COVID-19 VACCINE (3 - Moderna risk series) COVID-19 VACCINE (3 - Moderna risk series) [facility] Start: 07-30-2020 Breast cancer screen Breast cancer s creen [place], [place] Start: 07-30-2020 Screening for malign ant neoplasm of breast Breast cancer screen [place], [place] Start: 07-27-2020 Annual Wellness Visi t (AWV) Annual Wellness Visit (AWV) [place] Start: 02-10-2020 End: 02-10-2020 Office Visit 02/10/2020 Office Visit Family Laz Pendleton MD [address] [place] [address] [phone] [facility] Start: 02-03-2020 End: 02-03-2020 Office Visit 02/03/2020 Office Visit Family Medicine Laz Portillo MD [address] [place] [address] [phone] [facility] Start: 01-31-2020 Breast cancer screen Breast cancer s crerani [place], [place] Start: 01-12-2020 Influenza vaccination Flu vaccine (# 1) [place] Start: 10-23-2019 End: 10-23-2019 Office Visit 10/23/2019 Office Visit Family Medicine Laz Portillo MD [address] [place] [address] [phone] [facility] Start: 05-23-2019 Creatinine measurement Creatinine mo nitoring [place], [place] Start: 05-23-2019 Creatinine monitoring Creatinine mon [place]oring [place] Start: 05-23-2019 Potassium monitoring Potassium monit [place]ing [place] Start: 01-11-2019 Influenza vaccination Flu vaccine (# 1) [place] Start: 10-08-2018 Annual Wellness Visi t (AWV) Annual Wellness Visit (AWV) [place] Start: 02-21-2013 Pneumococcal 65+ yea rs Vaccine (1 of 1 - PPSV23) Pneumococcal 65+ years Vaccine (1 of 1 - PPSV23) [place] Start: 02-21-2013 Pneumococcal 65+ yea rs Vaccine (1 of 2 - PCV13) Pneumococcal 65+ years Vaccine (1 of 2 - PCV13) [place] Start: 02-21-2013 PNEUMOCOCCAL: 65+ (1 - PCV) PNEUMOCOCCAL: 65+ (1 - PCV) [facility] Start: 02-21-2013 PNEUMOVAX AGE 65 AND OVER WITH 5YR LOOKBACK (#1) PNEUMOVAX AGE 65 AND OVER WITH 5YR LOOKBACK (#1) [facility] Start: 02-21-1998 Shingles Vaccine (1 of 2) Shingles Vaccine (1 of 2) [facility] Start: 02-21-1998 SHINGRIX VACCINE (1 of 2) SHINGRIX VACCINE (1 of 2) [facility] Start: 02-21-1993 COLOGUARD (FIT-DNA) COLOGUARD (FIT-D NA) [facility] Start: 02-21-1993 Colonoscopy COLONOSCOPY [facility] Start: 02-21-1993 COLORECTAL CANCER SCREENING COLORECTAL CANCER SCREENING [facility] Start: 02-21-[address] COLONOGRAPHY [facility] Start: 02-21-1993 FECAL OCCULT BLOOD FECAL OCCULT BLOO D [facility] Start: 02-21-1993 LIPID SCREEN LIPID SCREEN [facility] Start: 02-21-1993 Screening for malign ant neoplasm of colon [facility] Start: 02-21-1993 SIGMOIDOSCOPY SIGMOIDOSCOPY [facility] Start: 1988 Mammography MAMMOGRAM [facility] Start: 02-21-1967 DTaP/Tdap/Td vaccine (1 - Tdap) DTaP/Tdap/Td vaccine (1 - Tdap) [facility], [place] Start: 02-21-1967 Urine microalbumin profile DTAP,TDAP,TD (1 - Tdap) [facility] Start: 02-21-1966 ANNUAL PCP TEAM LOT TECHNICIAN FELIZ DISEASE VISIT ANNUAL PCP TEAM CHRONIC DISEASE VISIT [facility] Start: 02-21-1966 BP CONTROLLED (<130/80) BP CONTROLLE D (<130/80) [facility] Start: 02-21-1966 HEPATITIS C SCREENING HEPATITIS C SC TRISTA [facility] Start: 02-21-1954 PNEUMOCOCCAL: 65+ (1 - PCV) PNEUMOCOCCAL: 65+ (1 - PCV) [facility] End: 07-21-2023 CBC W Auto Differential panel - Blood CBC + DIFF Lab Routine Malignant neoplasm of upper-outer quadrant of left breast in female, estrogen receptor positive (HCC) Every 6 months for 2 Occurrences starting 07/21/2022 until 07/21/2023 [facility] Work Phone: Comment on above: Every 6 months for 2 Occurrences starting 07/21/2022 until 07/21/2023 End: 07-21-2023 Comprehensive metabolic 2000 panel - Serum or Plasma COMP METABOLIC PANEL Lab Routine Malignant neoplasm of upper-outer quadrant of left breast in female, estrogen receptor positive (HCC) Every 6 months for 2 Occurrences starting 07/21/2022 until 07/21/2023 [facility] Work Phone: Comment on above: Every 6 months for 2 Occurrences starting 07/21/2022 until 07/21/2023 End: 09-20-2020 ECHO 2D WO Color Doppler Complete ECHO 2D WO Color Doppler Complete Echocardiography Routine Syncope, unspecified syncope type 1 Occurrences starting 09/20/2020 until 09/20/2020 [employer] Work Phone: Comment on above: 1 Occurrences starti ng 09/20/2020 until 09/20/2020 End: 08-16-2022 INITIATE PACU OXYGEN THERAPY PROTOCOL Initiate PACU Oxygen Therapy Protocol Respiratory Care Routine Continuous until discontinued starting 08/16/2022 [employer] Work Phone: Comment on above: Continuous until dis continued starting 08/16/2022 End: 02-10-2024 NGUYEN DIAGNOSTIC BILATERAL NGUYEN DIAGNOSTIC BILATERAL Radiology Routine Malignant neoplasm of upper-outer quadrant of left breast in female, estrogen receptor positive (HCC) 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 therapy 1 Occurrences starting 01/11/2023 until 02/10/2024 [facility] Work Phone: Comment on above: 1 Occurrences starti ng 01/11/2023 until 02/10/2024 Oxygen therapy [Mini mum Data Set] Initiate Oxygen Therapy Protocol Respiratory Care Routine As Needed until discontinued starting 07/12/2022 [employer] Phone: Comment on above: As Needed until disc ontinued starting 07/12/2022 Oxygen therapy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 Outpatient Medications Medication Sig ADVAIR HFA 115-21 mcg/actuation inhaler INHALE 2 PUFFS BY MOUTH TWICE DAILY RINSE MOUTH AFTER USE anastrozole (ARIMIDEX) 1 mg tablet Take 1 tablet by mouth once daily. cranberry extract-multivitamin 500 mg/5 gram pwpk Take by mouth. FLUoxetine HCl (PROZAC) 40 mg capsule Take 40 mg by mouth. multivitamin tablet Take by mouth. calcium-cholecalciferol, D3, (OSCAL+D 250) 250 mg-3.125 mcg (125 unit) per tablet Take 1 tablet by mouth twice daily. lisinopril-hydrochlorothiazide (PRINZIDE,ZESTORETIC) 20-12.5 mg per tablet Take 1 tablet by mouth once daily. No current facility-administered medications for this visit. ALLERGIES: ALLERGIES No Known Allergies PAST MEDICAL HISTORY: PAST MEDICAL (more content not included)... [facility] 07-17-2022 Miscellaneous Notes Formattin g of this note might be different from the original. Orders are . Please sign and/or add labs. Eve Bhakta documented in this encounter [facility] 07-05-2022 Hospital Discharg e instructions Rosi Costa RN - 07/05/2022 1:16 PM EST 1. Remove the shield at 1:00 p.m. today and begin all the eye drops. 2. Repeat the eye drops at 5:00 p.m. and before bedtime one drop per bottle, any order. Wait 3-4 minutes between drops. The drops are: ANTIBIOTIC: [x] Vigamox [] Tobramycin [] Zymaxid [] Gatifloxacin STEROID: [x] Prednisolone Acetate [] Durezol ANTI-INFLAMMATORY [] Nevenac [x] Ketorolac [] Ilevro [] Prolensa [] 3. Place one drop from each bottle by looking up, pull the lower lid down gently and let the drop fall in. 4. You may wipe the eyelid gently with a clean tissue or cotton. 5. Place only the shield over the eye when sleeping for (4) four days: Fix with tape 6. In the morning remove the shield and start putting in the drops, one drop from each bottle. Replace the shield or wear glasses during the day. 7. Please call Dr Basurto if you have any problems: Office [phone] 8. Continue all your previous medications. You may use Aspirin, Tylenol, or Advil if needed. 9. You have an appointment in the office: 10. Please bring your drops into the office at your next visit. Sedation or General Anesthesia, Adult Care After Refer to this sheet in the next 24 hours. These instructions provide you with information on caring for yourself after your procedure. Your caregiver may also give you more specific instructions. Your treatment has been planned according to current medical practices, but problems sometimes occur. Call your caregiver if you have any problems or questions after your procedure. HOME CARE INSTRUCTIONS Do not participate in any activities that require you to be alert or coordinated. Do not: Drive. Swim. Ride a bicycle. Operate heavy machinery. Cook. Use power tools. Climb ladders. Work at heights. Take a bath. Do not drink alcohol. Do not make any important decisions or sign legal documents. Stay with an adult. The first meal following your procedure should be light and small. Avoid solid foods if you feel sick to your stomach (nauseous) or if you throw up (vomit). Drink enough fluids to keep your urine clear or pale yellow. Only take your usual medicines or new medicines if your caregiver approves them. Only take ueas-bhf-twalkzq or prescription medicines for pain, discomfort, or fever as directed by your caregiver. Keep all follow-up appointments as directed by your caregiver. SEEK IMMEDIATE MEDICAL CARE IF: You are not feeling normal or behaving normally after 24 hours. You have persistent nausea and vomiting. You are unable to drink fluids or eat food. You have difficulty urinating. You have difficulty breathing or speaking. You have blue or chaudhari skin. There is difficulty waking or you cannot be woken up. You have heavy bleeding, redness, or a lot of swelling where the sedative or anesthesia entered your skin (intravenous site). You have a rash. MAKE SURE YOU: Understand these instructions. Will watch your condition. Will get help right away if you are not doing well or get worse. Document Released: 04/29/2006 Document Revised: 10/28/2012 Document Reviewed: 08/27/2012 ExitCare Patient Information 2013 [employer]. documented in this encounter [employer] Phone: 05-30-2022 Evaluation note Encounter Date Diagnosis Assessment Notes May, Contact with and (suspected) exposure to covid-19 (ICD-10 - Z20.822) May, Acute sinusitis, recurrence not specified, unspecified location (ICD-10 - J01.90) Sinusitis home care material was printed Drink plenty fluids, get plenty of rest. Continue home medications as prescribed. Use the Flonase inhaler as prescribed until your symptoms improve. Take the prednisone as prescribed until gone. Take Tylenol or Motrin as needed for aches pains or fevers. Follow-up with your family physician if no improvement in 2 to 3 days [employer] Other 05-24-2022 Miscellaneous Notes* Telephone Encounter - Laura Barber - 10/03/2021 11:29 AM EDT Spoke with patient and informed of Dr. Thomas recommendation patient was very happy with this and asked that we send her records to [facility] when Dr. Pinto is there so that she can follow up with him and she will see him in later december. Ángela can you please forward the patients records to [facility]. * Telephone Encounter - Laura Barber - 10/02/2021 10:00 AM EDT LVM for patient please inform patient of Dr. Thomas message give patient phone number to [employer] [phone]. * Telephone Encounter - Gustavo Pinto MD - 09/30/2021 5:37 PM EDT Happy to see her! Thanks. * Telephone Encounter - Gato Cano MD - 09/30/2021 10:35 AM EDT She should see Dr. Pinto when he starts in [place]. * Telephone Encounter - Laura Stevenson Pss - 09/28/2021 2:17 PM EDT Spoke with patient due to her insurance changing PFA denied her coming to [facility] because she is out ofnetwork and this would cause the patient a high out of pocket cost Dr. Antonio the patient would like to know who you would like to refer her to in this case? Please advise [facility] Miscellaneous Notes* Telephone Encounter - Oumou Callahan MA - 09/22/2021 12:12 PM EDT Patient has an appt on 10/02/21. Would you like labs, if so place orders. Oumou Callahan MA [facility] NoteEducation Materials Pulmonary Medicine Bronchospasm, Adult Bronchospasm is when airways in the lungs get smaller. When this happens, it can be hard to breathe. You may cough. You may also make a whistling sound when you breathe (wheeze). Follow these instructions at home: Medicines ? Take zata-ryr-snrheav and prescription medicines only as told by your doctor. ? If you need to use an inhaler or nebulizer to take your medicine, ask your doctor how to use it. ? If you were given a spacer, always use it with your inhaler. Lifestyle ? Change your heating and air conditioning filter. Do this at least once a month. ? Try not to use fireplaces and wood stoves. ? Do not smoke. Do not allow smoking in your home. ? Try not to use things that have a strong smell, like perfume. ? Get rid of pests (such as roaches and mice) and their poop. ? Remove any mold from your home. ? Keep your house clean. Get rid of dust. ? Use cleaning products that have no smell.? ? Replace carpet with wood, tile, or vinyl bob. ? Use allergy-proof pillows, mattress covers, and box spring covers. ? Wash bed sheets and blankets every week. Use hot water. Dry them in a dryer. ? Use blankets that are made of polyester or cotton. ? Wash your hands often. ? Keep pets out of your bedroom. ? When you exercise, try not to breathe in cold air. General instructions ? Have a plan for getting medical care. Know these things: ? When to call your doctor. ? When to call local emergency services (911 in the [place] ? Where to go in an emergency. ? Stay up to date on your shots (immunizations). ? When you have an episode: ? Stay calm. ? Relax. ? Breathe slowly. Contact a doctor if: ? Your muscles ache. ? Your chest hurts. ? The color of the mucus you cough up (sputum) changes from clear or white to yellow, green, chaudhari, or bloody. ? The mucus you cough up gets thicker. ? You have a fever. Get help right away if: ? The whistling sound gets worse, even after you take your medicines. ? Your coughing gets worse. ? You find it even harder to breathe. ? Your chest hurts very much. Summary ? Bronchospasm is when airways in the lungs get smaller. ? When this happens, it can be hard to breathe. You may cough. You may also make a whistling sound when you breathe. ? Stay away from things that cause you to have episodes. These include smoke or dust. This information is not intended to replace advice given to you by your health care provider. Make sure you discuss any questions you have with your health care provider. Document Revised: 04/11/2018 Document Reviewed: 05/02/2017 [employer] Patient Education ? 2020 [employer] Asthma, Adult Asthma is a long-term (chronic) condition in which the airways get tight and narrow. The airways are the breathing passages that lead from the nose and mouth down into the lungs. A person with asthmawill have times when symptoms get worse. These are called asthma attacks. They can cause coughing, whistling sounds when you breathe (wheezing), shortness of breath, and chest pain. They can make it hard to breathe. There is no cure for asthma, but medicines and lifestyle changes can help control it. There are many things that can bring on an asthma attack or make asthma symptoms worse (triggers). Common triggers include: ? Mold. ? Dust. ? Cigarette smoke. ? Cockroaches. ? Things that can cause allergy symptoms (allergens). These include animal skin flakes (dander) andpollen from trees or grass. ? Things that pollute the air. These may include household parts counter clerk, wood smoke, smog, or chemical odors. ? Cold air, weather changes, and wind. ? Crying or laughing hard. ? Stress. ? Certain medicines or drugs. ? Certain foods such as dried fruit, potato chips, and grape juice. ? Infections, such as a cold or the flu. ? Certain medical conditions or diseases. ? Exercise or tiring activities. Asthma may be treated with medicines and by staying away from the things that cause asthma attacks.Types of medicines may include: ? Controller medicines. These help prevent asthma symptoms. They are usually taken every day. ? Fast-acting reliever or rescue medicines. These quickly relieve asthma symptoms. They are used asneeded and provide short-term relief. ? Allergy medicines if your attacks are brought on by allergens. ? Medicines to help control the body's defense (immune) system. Follow these instructions at home: Avoiding triggers in your home ? Change your heating and air conditioning filter often. ? Limit your use of fireplaces and wood stoves. ? Get rid of pests (such as roaches and mice) and their droppings. ? Throw away plants if you see mold on them. ? Clean your floors. Dust regularly. Use cleaning products that do not smell. ? Have someone vacuum when you are not home. Use a vacuum shallot cleaner with a HEPA filter if (more content not included)...[facility] [id number] [facility] Vascular Upper Extremities Veins Procedure Patient Name QUINTIN Date of Study 09/20/2020 NU Ibarra Date of 1950 Gender Female Age 70 year(s) Race Room Number Corporate ID # [id number] Patient MR # [id number] 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 Indications for Study:Arm swelling. Patient Status:Out Patient. Technical Quality:Adequate visualization. Conclusions Summary No evidence of superficial or deep venous thrombosis in the left upper extremity. Signature Findings: Right Impression: Left Impression: The subclavian vein was The internal jugular, subclavian, axillary, compressible with normal brachial, ulnar, radial, cephalic and basilic doppler responses. veins were compressible with normal doppler responses.Velocities are measured in cm/s ; Diameters are measured in cm Right UE Vein Measurements 2D Measurements + + + + + !Location !Visualized !Compressibility !Thrombosis ! + + + + + !Prox SCV !Yes !Yes !None ! + + + + + Doppler Measurements + + + + !Location !Signal !Reflux ! + + + + !SCV !Phasic ! ! + + + + Left UE Vein Measurements 2D Measurements + + + + + !Location !Visualized!Compressibility!Thrombosis! + + + + + !Prox IJV !Yes !Yes !None ! + + + + + !Prox SCV !Yes !Yes !None ! +----- + + + + !Prox Axillary !Yes !Yes !None ! + + + + + !Prox Brachial !Yes !Yes !None ! + + + + + !Prox Radial !Yes !Yes !None ! + + + + + !Prox Ulnar !Yes !Yes !None ! + + + + + !Basilic at UA !Yes !Yes !None ! + + + + + !Basilic at AF !Yes !Yes !None ! + + + + + !Basilic at LA !Yes !Yes !None ! + +- ---------+ + + !Cephalic at UA !Yes !Yes !None ! + + + + + !Cephalic at AF !Yes !Yes !None ! + + + + + !Cephalic at LA !Yes !Yes !None ! +---- + + + + Doppler Measurements +------ + + + !Location !Signal !Reflux ! +- + + + !IJV !Phasic ! ! + + + (more content not included)...[employer] Phone: [phone]) 230-248301-14-2021 Note [id number]01-08-2021 NotePatient Education Materials Follows:and Gynecology Urinary Tract Infection, Adult A urinary tract infection (UTI) is an infection of any part of the urinary tract. The urinary tractincludes: ? The kidneys. ? The ureters. ? The bladder. ? The urethra. These organs make, store, and get rid of pee (urine) in the body. What are the causes? This is caused by germs (bacteria) in your genital area. These germs grow and cause swelling (inflammation) of your urinary tract. What increases the risk? You are more likely to develop this condition if: ? You have a small, thin tube (catheter) to drain pee. ? You cannot control when you pee or poop (incontinence). ? You are female, and: ? You use these methods to prevent : ? A medicine that kills sperm (spermicide). ? A device that blocks sperm (diaphragm). ? You have low levels of a female hormone (estrogen). ? You are . ? You have genes that add to your risk. ? You are sexually active. ? You take antibiotic medicines. ? You have trouble peeing because of: ? A prostate that is bigger than normal, if you are male. ? A blockage in the part of your body that drains pee from the bladder (urethra). ? A kidney stone. ? A nerve condition that affects your bladder (neurogenic bladder). ? Not getting enough to drink. ? Not peeing often enough. ? You have other conditions, such as: ? Diabetes. ? A weak disease-fighting system (immune system). ? Sickle cell disease. ? Gout. ? Injury of the spine. What are the signs or symptoms? Symptoms of this condition include: ? Needing to pee right away (urgently). ? Peeing often. ? Peeing small amounts often. ? Pain or burning when peeing. ? Blood in the pee. ? Pee that smells bad or not like normal. ? Trouble peeing. ? Pee that is cloudy. ? Fluid coming from the vagina, if you are female. ? Pain in the belly or lower back. Other symptoms include: ? Throwing up (vomiting). ? No urge to eat. ? Feeling mixed up (confused). ? Being tired and grouchy (irritable). ? A fever. ? Watery poop (diarrhea). How is this treated? This condition may be treated with: ? Antibiotic medicine. ? Other medicines. ? Drinking enough water. Follow these instructions at home: Medicines ? Take [id number] and prescription medicines only as told by your doctor. ? If you were prescribed an antibiotic medicine, take it as told by your doctor. Do not stop takingit even if you start to feel better. General instructions ? Make sure you: ? Pee until your bladder is empty. ? Do not hold pee for a long time. ? Empty your bladder after sex. ? Wipe from front to back after pooping if you are a female. Use each tissue one time when you wipe. ? Drink enough fluid to keep your pee pale yellow. ? Keep all follow-up visits as told by your doctor. This is important. Contact a doctor if: ? You do not get better after 1?2 days. ? Your symptoms go away and then come back. Get help right away if: ? You have very bad back pain. ? You have very bad pain in your lower belly. ? You have a fever. ? You are sick to your stomach (nauseous). ? You are throwing up. Summary ? A urinary tract infection (UTI) is an infection of any part of the urinary tract. ? This condition is caused by germs in your genital area. ? There are many risk factors for a UTI. These include having a small, thin tube to drain pee and not being able to control when you pee or poop. ? Treatment includes antibiotic medicines for germs. ? Drink enough fluid to keep your pee pale yellow. This information is not intended to replace advice given to you by your health care provider. Make sure you discuss any questions you have with your health care provider. Document Released: 10/15/2008 Document Revised: 04/16/2019 Document Reviewed: 11/06/2018 [employer] Patient Education ? 2020 [employer].[facility] CenterEvaluation note * Diagnosis Syncope, unspecified syncope type documented in this encounter [employer] Phone: evaluation note* Diagnosis Hypertension, unspecified type Fatigue, unspecified type documented in this encounter [employer] Phone: evaluation note* Diagnosis Malignant neoplasm of upper-outer quadrant of left breast in female, estrogen receptor positive (HCC)- Primary 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 therapy Disorder of bone and cartilage, unspecified [facility] Diagnosis Malignant neoplasm of upper-outer quadrant of left breast in female, estrogen receptor positive (HCC)- Primary [facility]* Diagnosis Malignant neoplasm of upper-outer quadrant of left breast in female, estrogen receptor positive (HCC)- Primary 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 therapy Disorder of bone and cartilage, unspecified [facility] this encounter [facility]* Diagnosis 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 therapy- Primary Disorder of bone and cartilage, unspecified Malignant neoplasm of upper-outer quadrant of left breast in female, estrogen receptor positive (HCC) documented in this encounter [facility] general Narrative - Reported* Type Description Date Medical History Asthma Medical History HTN (hypertension) Medical History Anxiety Medical History Glaucoma Surgical History hysterectomy Surgical History cholecystectomy Surgical History breast cancer Digital Trowel Other Reason for referral (narrative)* Diagnostic Procedure Only (Routine) - Pending Review Specialty Diagnoses / Procedures Referred By Contac t Referred To Contact [facility] IMAGING Diagnoses Malignant neoplasm of upper-outer quadrant of left breast in female, estrogen receptor positive (HCC) 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 therapy Procedures NGUYEN DIAGNOSTIC BILATERAL DIAGNOSTIC MAMMOGRAPHY COMPUTER-AIDED DETCJ Allyssa Mejia APRN.CNP [address] [place] [address] [place] [address] [facility] [address] [place] [id number] Referral ID Status Reason Start Date Expiration Date Visits Requested Visits Authorized [id number] Pending Review Auto-Generat ed Referral 01/11/2023 02/10/2024 [address] 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 Advance Directives and Living Will Power of Dental Laboratory Worker Documents on File Type Date 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 ACP-Advance Directive ACP-Power of Dental Laboratory Worker Documents on File Type Date 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 ACP-Advance Directive ACP-Power of Dental Laboratory Worker Latest Code Status on File Code Status Date Activated Date Inactivated Comments Full Code 07/12/2022 11:20 AM Latest Code Status on File Code Status Date Activated Date Inactivated Comments Full Code 08/16/2022 11:09 AM Code Status History Code Status Date Activated Date Inactivated Comments Full Code 07/12/2022 11:20 AM 07/12/2022 5:17 PM Reason for Referral Status Reason Specialty Diagnoses / Procedures Referred By Contact Referred To Contact Authorized Radiology Diagnoses Abnormal mammogram Procedures NGUYEN DIGITAL DIAGNOSTIC W OR WO CAD LEFT Estiven Canela MD [address] [place] [address] [place] [address] Status Reason Specialty Diagnoses / Procedures Referre d By Contact Referred To Contact Closed Radiology Diagnoses Swelling of limb Malignant neoplasm of upper-outer quadrant of left breast in female, estrogen receptor positive (HCC) Procedures US DUP UPPER EXTREMITY LEFT VENOUS Laz Portillo MD [address] [place] [address] Status Reason Specialty Diagnoses / Procedures Referred By Contact Referred To Contact Authorized Radiology Diagnoses History of breast cancer Procedures NGUYEN DIGITAL DIAGNOSTIC W OR WO CAD BILATERAL Sulaiman Bronson MD [address] [place] [address] Status Reason Specialty Diagnoses / Procedures Referred By Contact Referred To Contact Pending Review Radiology Diagnoses Lump in female breast Procedures US BREAST LIMITED LEFT Sulaiman Bronson MD [address] [place] [id number] Status Reason Specialty Diagnoses / Procedures Referre d By Contact Referred To Contact Closed Diagnoses Syncope, unspecified syncope type Procedures ECHO 2D WO Color Doppler Complete Laz Portillo MD [address] [place] [address] Assessments Diagnosis Abnormal mammogram Abnormal mammogram, unspecified Diagnosis Rotator cuff arthropathy of left shoulder Diagnosis Swelling of limb Malignant neoplasm of upper-outer quadrant of left breast in female, estrogen receptor positive (HCC) Diagnosis Chronic fatigue Other malaise and fatigue Cancer of breast, intraductal, left Diagnosis History of breast cancer Personal history of malignant neoplasm of breast Diagnosis Lump in female breast Lump or mass in breast Medications Administered Section Inactive Administered Medications - up to 3 most recent administrations Medication Order MAR Action Action Date Dose Rate Site acetaminophen 650 mg tab(s) (TYLENOL) 650 mg, ORAL, ONCE, 1 dose, On Sat01/11/23 at 1530, Give 30 minutes before infusion. No more than 4000 mg of acetaminophen should be given per day (FROM ALL SOURCES), If ordered PRN for pain, patient/guardian may elect to receive this medication for higher pain levels INSTEAD of the opioid, if preferred: N/A Given 01/11/2023 3:15 PM EDT 650 mg zoledronic [id number]-3.9NaCl 4 mg iv piggyback 100 mL (ZOMETA) 4 mg, INTRAVENOUS, Administer over 15 Minutes, ONCE, 1 dose, On Sat01/11/23 at 1530, Hazardous Potential Reproductive Risk Drug: Use appropriate PPE. New Bag/Syringe/Bottle 01/11/2023 3:43 PM EDT 4 mg Additional Source Comments INFORMATION SOURCE (unrecogn ized section and content) DATE CREATED AUTHOR 12/31/2017 [facility] DATE CREATED AUTHOR AUTHOR'S ORGANIZ ATION 03/31/2021 [facility] DATE CREATED AUTHOR AUTHOR'S ORGANIZ ATION 07/07/2022 [facility] DATE CREATED AUTHOR AUTHOR'S ORGANIZ ATION 08/18/2022 [facility] DATE CREATED AUTHOR AUTHOR'S ORGANIZ ATION 01/15/2023 [facility] Reason for Visit (unrecogniz ed section and content) Status Reason Specialty Diagnoses / Procedures Referre d By Contact Referred To Contact Open Radiology Diagnoses Personal history of malignant neoplasm of breast Procedures HC MAMMO DGX UNILATERAL INCL CAD IF PERF Keegan Canela T [address] [place] [address] [facility] [address] [place] [address] Status Reason Specialty Diagnoses / Procedures Referre d By Contact Referred To Contact Closed Radiology Diagnoses Swelling of limb Malignant neoplasm of upper-outer quadrant of left breast in female, estrogen receptor positive (HCC) Procedures US DUP UPPER EXTREMITY LEFT VENOUS Laz Portillo MD [address] [place] [address] Status Reason Specialty Diagnoses / Procedures Referre d By Contact Referred To Contact Open Radiology Diagnoses Malignant neoplasm of unspecified site of left female breast Procedures HC MAMMO DGX BILATERAL INCL CAD IF PERF Sulaiman Bronson MD [address] [place] [address] [address] Status Reason Specialty Diagnoses / Procedures Referred By Contact Referred To Contact Pending Review Radiology Diagnoses Malignant neoplasm of unspecified site of left female breast Procedures HC US BREAST LTD Sulaiman Bronson MD [address] [place] [address] [address] Status Reason Specialty Diagnoses / Procedures Referred By Contact Referred To Contact Authorized Cardiology Diagnoses Hypertension, unspecified type Syncope, unspecified syncope type Procedures 46892 - VA Duplex Scan Extracranial, Luis M Laz Portillo MD [address] [place] [address] Status Reason Specialty Diagnoses / Procedures Referre d By Contact Referred To Contact Closed Diagnoses Syncope, unspecified syncope type Procedures ECHO 2D WO Color Doppler Complete Laz Portillo MD [address] [place] [address] Reason Comments Lab Orders Reason Comments Patient Update Specialty Diagnoses / Procedures Referred By Contac t Referred To Contact Diagnoses Cataract, nuclear sclerotic, left eye Cataract, nuclear sclerotic, left eye [H25.12] Procedures VA XCAPSL CTRC RMVL INSJ IO LENS PROSTH W/O ECP EYE CATARACT EMULSIFICATION IOL IMPLANT LEFT EYE PERIBULBAR ; Josesito Dawn MD [address] [facility] [address] [place] [address] [facility] [address] [place] [address] Referral ID Status Reason Start Date Expiration Date Visits Re quested Visits Authorized [id number] 1 1 Specialty Diagnoses / Procedures Referred By Contac t Referred To Contact Diagnoses Cataract of right eye, unspecified cataract type Cataract of right eye, unspecified cataract type [H26.9] Procedures VA XCAPSL CTRC RMVL INSJ IO LENS PROSTH W/O ECP EYE CATARACT EMULSIFICATION IOL IMPLANT Josesito Basurto MD [address] [facility] [address] [place] [address] [facility] [address] [place] [address] Referral ID Status Reason Start Date Expiration Date Visits Re quested Visits Authorized [id number] 1 1 Reason Comments Breast Cancer Specialty Diagnoses / Procedures Referred By Contac t Referred To Contact Diagnoses Malignant neoplasm of upper-outer quadrant of left breast in female, estrogen receptor positive (HCC) 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 therapy Procedures INJECTION, ZOLEDRONIC ACID, 1 MG Gato Cano MD [address] [place] [address] [place] [address] [address] [place] [address] Referral ID Status Reason Start Date Expiration Date V isits Requested Visits Authorized [id number] Authorized 07/20/2022 01/19/2023 1 1 Source Comments (unrecognize d section and content) In the event this informatio n is protected by the Federal Confidentiality of Alcohol and Drug Abuse Patient Records regulations: The Federal rules restrict any use of the information to criminally investigate or prosecute any alcohol or drug abuse patient.[facility] Hospital[facility] the event this information is protected by the Federal Confidentiality of Alcohol and Drug Abuse Patient Records regulations: The Federal rules restrict any use of the information to criminally investigate or prosecute any alcohol or drug abuse patient.[facility] HospitalIn the event this information is protected by the Federal Confidentiality of Alcohol and Drug Abuse Patient Records regulations: The Federal rules restrict any use of the information to criminally investigate or prosecute any alcohol or drug abuse patient.[facility] HospitalIn the event this information is protected by the Federal Confidentiality of Alcohol and Drug Abuse Patient Records regulations: The Federal rules restrict any use of the information to criminally investigate or prosecute any alcohol or drug abuse patient.[facility] HospitalIn the event this information is protected by the Federal Confidentiality of Alcohol and Drug Abuse Patient Records regulations: The Federal rules restrict any use of the information to criminally investigate or prosecute any alcohol or drug abuse patient.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 Start Date End Date Laz Portillo MD [address] [place] [address] PCP - General Family Medicine 06/24/18 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 Start Date End Date Laz Portillo MD [address] [place] [address] PCP - General Family Medicine 11/12/19 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 Start Date End Date Laz Portillo MD [address] [place] [address] PCP - General Family Medicine 06/24/18 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 If following IV push medication, administer flush at same rate as the IV push. Flush volume is determined by type of infusion therapy being given. For non-viscous solutions use: Peripheral IV = 5 mL Midline or Central Line = 10 mL/lumen For viscous solutions (i.e. blood components, parenteral nutrition, contrast media, or after obtaining blood sample) use: Peripheral IV = 10 mL Midline or Central Line = 20 mL/lumen, Pre-op (day of surgery) 1145 (Due)2100 (Due) tetracaine (TETRAVISC) 0.5 % ophthalmic solution 1 drop (COMPLETED) 1 drop, Left Eye, ONCE, 1 dose, On Chayo 07/12/22 at 1130, Into the operative eye once before any other drop, Pre-op (day of surgery) 1213 (Given - Provid er: Sheila Bell RN) Continuous Medication Order 07/10/2022 07/11/2022 07/12/2022 lactated ringers IV soln infusion IntraVENous, at 125 mL/hr, CONTINUOUS, Starting on Chayo 07/12/22 at 1145, Pre-op (day of surgery) 1218 (New Bag - Prov ider: Sheila Bell, TORREY) PRN Medication Order 07/10/2022 07/11/2022 07/12/2022 0.9 % sodium chloride infusion IntraVENous, at 5-250 mL/hr, PRN, if patient receiving piggyback infusions and maintenance fluids are not ordered OR KVO fluids to protect IV site / prevent frequent line interruptions/ long duration, Starting on Chayo 07/12/22 at 1120, For piggyback infusion, administer at same rate as piggyback for a total of 25 mL. Enter 25 mL into dose field and piggyback rate into rate field of order. If piggyback is infusing at a rate less than 100 mL/hr, enter 25 mL into dose field and 100 mL/hr into rate field of order. For KVO fluids, enter rate of 20 mL/hr or less into rate field of order., Pre-op (day of surgery) balanced salts (BSS) 500 mL, EPINEPHrine (EPINEPHrine HCL) 1 mg/mL 0.2 mg (CANCELED) PRN, Starting on Chayo 3/2/23 at 1347, Intra-op 1347 (Given - Provid er: Josesito Basurto MD - Comment: FOR PHACO) balanced salts plus (BSS) ophthalmic solution (CANCELED) PRN, Starting on Chayo 3//23 at 1347, Intra-op 1347 (Given - Provid er: Josesito Basurto MD - Comment: ON BACK TABLE PER SURGEON REQUEST)1405 (Given - Provider: Josesito Basurto MD - Comment: ON BACK TABLE PER SURGEON REQUEST) bupivacaine (PF) (MARCAINE) 0.5 % injection 1 mg (COMPLETED) 1 mg (0.2 mL), Ophthalmic, EVERY 5 MIN PRN, 2 doses, Starting on Chayo 3//23 at 1120, Until Chayo 3//23 at 1221, pre-op, One drop to operative eye(s) for 2 doses 5 minutes apart, prior to surgery, Pre-op (day of surgery) 1215 (Given - Provid er: Sheila Bell RN)1221 (Given - Provider: Sheila Bell RN) bupivacaine (PF) (MARCAINE) 0.5 % injection (CANCELED) PRN, Starting on Chayo 3//23 at 1347, Until Chayo 3//23 at 1416, Intra-op 1347 (Given - Provid er: Josesito Basurto MD - Comment: FOR BLOCK) chondroitin-sodium hyaluronate (DUOVISC) intra-ocular kit (CANCELED) PRN, Starting on Chayo 3//23 at 1352, Until Chayo 3/2/23 at 1416, Intra-op 1352 (Given - Provid er: Josesito Basurto MD - Comment: ON BACK TABLE PER SURGEON REQUEST) ciprofloxacin (CILOXAN) 0.3 % ophthalmic solution 1 drop (COMPLETED) 1 drop, Left Eye, EVERY 5 MIN PRN, 3 doses, Starting on Chayo 3//23 at 1124, Until Chayo 3//23 at 1226, pre-op, To operative eye(s) for 3 doses, every 5 minutes, starting 20 minutes prior to surgery, Pre-op (day of surgery) 1216 (Given - Provid er: Sheila Bell RN)1221 (Given - Provider: Sheila Bell RN)1226 (Given - Provider: Sheila Bell RN) ciprofloxacin (CILOXAN) 0.3 % ophthalmic solution (CANCELED) PRN, Starting on Chayo 3 at 1413, Until Chayo 3 at 1416, Intra-op 1413 (Given - Provid er: Josesito Basurto MD) hyaluronidase human (HYLENEX) injection (CANCELED) PRN, Starting on Chayo 07/12/22 at 1347, Intra-op 1347 (Given - Provid er: Josesito Basurto MD - Comment: FOR BLOCK) ketorolac (ACULAR) 0.5 % ophthalmic solution 1 drop (COMPLETED) 1 drop, Left Eye, EVERY 5 MIN PRN, 3 doses, Starting on Chayo 3 at 1124, Until Chayo 323 at 1225, pre-op, To operative eye(s) for 3 doses, every 5 minutes, starting 20 minutes prior to surgery, Pre-op (day of surgery) 1216 (Given - Provid er: Sheila Bell RN)1221 (Given - Provider: Sheila Bell RN)1225 (Given - Provider: Sheila Bell RN) lidocaine 0.75%, EPINEPHrine 0.025% in BSS ophthalmic injection (CANCELED) PRN, Starting on Chayo 3 at 1347, Until Chayo 323 at 1416, Intra-op 1347 (Given - Provid er: Josesito Basurto MD) lidocaine PF 1 % injection 1 mL (COMPLETED) 1 mL, IntraDERmal, ONCE PRN, 1 dose, Starting on Chayo 07/12/22 at 1120, Until Chayo 323 at 1219, IV start, Pre-op (day of surgery) 1219 (Given - Provid er: Sheila Bell RN) lidocaine PF 4 % injection (CANCELED) PRN, Starting on Chayo 07/12/22 at 1347, Until Chayo 3 at 1416, Intra-op 1347 (Given - Provid er: Josesito Basurto MD - Comment: FOR BLOCK) jgfqvtbe-xuknyvtka-sulcxcpa ophthalmic ointment (CANCELED) PRN, Starting on Chayo 07/12/22 at 1413, Intra-op 1413 (Given - Provid er: Josesito Basurto MD) phenylephrine (MYDFRIN) 2.5 % ophthalmic solution 1 drop (COMPLETED) 1 drop, Left Eye, EVERY 5 MIN PRN, 3 doses, Starting on Chayo 07/12/22 at 1124, Until Chayo 3 at 1226, pre-op, To operative eye(s) for 3 doses, every 5 minutes, starting 20 minutes prior to surgery, RPh - enter number of doses based on parameters defined by the physician in the admin. comments., Pre-op (day of surgery) 1216 (Given - Provid er: Sheila Bell RN)1221 (Given - Provider: Sheila Bell RN)1226 (Given - Provider: Sheila Bell RN) prednisoLONE acetate (PRED MILD) 0.12 % ophthalmic suspension (CANCELED) PRN, Starting on Chayo 07/12/22 at 1413, Until Chayo 3 at 1416, Intra-op 1413 (Given - Provid er: Josesito Basurto MD) sodium chloride flush 0.9 % injection 5-40 mL 5-40 mL, IntraVENous, PRN, Starting on Chayo 07/12/22 at 1120, Until Discontinued, Line Care, After every IV line use, For Line Patency: Peripheral IV = 5 mL; Midline or Central Line = 10 mL/lumen. If following IV push medication, administer flush at same rate as the IV push. Flush volume is determined by type of infusion therapy being given. For non-viscous solutions use: Peripheral IV = 5 mL Midline or Central Line = 10 mL/lumen For viscous solutions (i.e. blood components, parenteral nutrition, contrast media, or after obtaining blood sample) use: Peripheral IV = 10 mL Midline or Central Line = 20 mL/lumen, Pre-op (day of surgery) timolol (TIMOPTIC) 0.5 % ophthalmic solution (CANCELED) PRN, Starting on Chayo 07/12/22 at 1413, Until Chayo 07/12/22 at 1416, Intra-op 1413 (Given - Provid er: Josesito Basurto MD) tropicamide (MYDRIACYL) 1 % ophthalmic solution 1 drop (COMPLETED) 1 drop, Left Eye, EVERY 5 MIN PRN, 3 doses, Starting on Chayo 07/12/22 at 1123, Until Chayo 07/12/22 at 1226, pre-op, To operative eye(s) for 3 doses, every 5 minutes, starting 20 minutes prior to surgery, [facility] - enter number of doses based on parameters defined by the physician in the admin. comments., Pre-op (day of surgery) 1216 (Given - Provid er: Sheila Bell RN)1221 (Given - Provider: Sheila Bell RN)1226 (Given - Provider: Sheila Bell RN) Scheduled Medication Order 08/14/2022 08/15/2022 08/16/2022 ciprofloxacin (CILOXAN) 0.3 % ophthalmic solution 1 drop 1 drop, Right Eye, SEE ADMIN INSTRUCTIONS, Starting on Chayo 08/16/22 at 1109, Until Discontinued, To operative eye(s) for 3 doses, every 5 minutes, starting 20 minutes prior to surgery, Pre-op (day of surgery) 1207 (Given - Provid er: Sheila Bell RN)1211 (Given - Provider: Sheila Bell RN)1216 (Given - Provider: Sheila Bell RN) ketorolac (ACULAR) 0.5 % ophthalmic solution 1 drop 1 drop, Right Eye, SEE ADMIN INSTRUCTIONS, Starting on Chayo 08/16/22 at 1109, Until Discontinued, To operative eye(s) for 3 doses, every 5 minutes, starting 20 minutes prior to surgery, Pre-op (day of surgery) 1207 (Given - Provid er: Sheila Bell RN)1211 (Given - Provider: Sheila Bell RN)1216 (Given - Provider: Sheila Bell RN) phenylephrine (MYDFRIN) 2.5 % ophthalmic solution 1 drop 1 drop, Right Eye, SEE ADMIN INSTRUCTIONS, Starting on Chayo 08/16/22 at 1109, Until Discontinued, To operative eye(s) for 3 doses, every 5 minutes, starting 20 minutes prior to surgery, [facility] - enter number of doses based on parameters defined by the physician in the admin. comments., Pre-op (day of surgery) 1207 (Given - Provid er: Sheila Bell RN)1211 (Given - Provider: Sheila Bell RN)1216 (Given - Provider: Sheila Bell RN) sodium chloride flush 0.9 % injection 5-40 mL 5-40 mL, IntraVENous, EVERY 12 HOURS SCHEDULED (2 times per day), First dose on Chayo 08/16/22 at 1130, Until Discontinued, For Line Patency: Peripheral IV = 5 mL; Midline or Central Line = 10 mL/lumen. If following IV push medication, administer flush at same rate as the IV push. Flush volume is determined by type of infusion therapy being given. For non-viscous solutions use: Peripheral IV = 5 mL Midline or Central Line = 10 mL/lumen For viscous solutions (i.e. blood components, parenteral nutrition, contrast media, or after obtaining blood sample) use: Peripheral IV = 10 mL Midline or Central Line = 20 mL/lumen, Pre-op (day of surgery) 1130 (Due)2100 (Due) sodium chloride flush 0.9 % injection 5-40 mL 5-40 mL, IntraVENous, EVERY 12 HOURS SCHEDULED (2 times per day), First dose on Chayo 08/16/22 at 2100, Until Discontinued, For Line Patency: Peripheral IV = 5 mL; Midline or Central Line = 10 mL/lumen. If following IV push medication, administer flush at same rate as the IV push. Flush volume is determined by type of infusion therapy being given. For non-viscous solutions use: Peripheral IV = 5 mL Midline or Central Line = 10 mL/lumen For viscous solutions (i.e. blood components, parenteral nutrition, contrast media, or after obtaining blood sample) use: Peripheral IV = 10 mL Midline or Central Line = 20 mL/lumen, PACU only 2100 (Due) tetracaine (TETRAVISC) 0.5 % ophthalmic solution 1 drop 1 drop, Right Eye, SEE ADMIN INSTRUCTIONS, Starting on Chayo 08/16/22 at 1109, Until Discontinued, Into the operative eye once before any other drop, Pre-op (day of surgery) 1205 (Given - Provid er: Sheila Bell RN) tropicamide (MYDRIACYL) 1 % ophthalmic solution 1 drop 1 drop, Right Eye, SEE ADMIN INSTRUCTIONS, Starting on Chayo 08/16/22 at 1109, Until Discontinued, To operative eye(s) for 3 doses, every 5 minutes, starting 20 minutes prior to surgery, RPh - enter number of doses based on parameters defined by the physician in the admin. comments., Pre-op (day of surgery) 1207 (Given - Provid er: Sheila Bell RN)1211 (Given - Provider: Sheila Bell RN)1216 (Given - Provider: Sheila Bell, RN) Continuous Medication Order 08/14/2022 08/15/2022 08/16/2022 lactated ringers IV soln infusion IntraVENous, at 125 mL/hr, CONTINUOUS, Starting on Chayo 08/16/22 at 1130, Pre-op (day of surgery) 1204 (New Bag - Prov ider: Sheila Bell RN)1337 (NoRateChange - Provider: Pacheco Mckeon APRN - WILDLIFE BIOLOGIST) PRN Medication Order 08/14/2022 08/15/2022 08/16/2022 0.9 % sodium chloride infusion IntraVENous, at 5-250 mL/hr, PRN, if patient receiving piggyback infusions and maintenance fluids are not ordered OR KVO fluids to protect IV site / prevent frequent line interruptions/ long duration, Starting on Chayo 08/16/22 at 1109, For piggyback infusion, administer at same rate as piggyback for a total of 25 mL. Enter 25 mL into dose field and piggyback rate into rate field of order. If piggyback is infusing at a rate less than 100 mL/hr, enter 25 mL into dose field and 100 mL/hr into rate field of order. For KVO fluids, enter rate of 20 mL/hr or less into rate field of order., Pre-op (day of surgery) 0.9 % sodium chloride infusion IntraVENous, at 5-250 mL/hr, PRN, if patient receiving piggyback infusions and maintenance fluids are not ordered OR KVO fluids to protect IV site / prevent frequent line interruptions/ long duration, Starting on Chayo 08/16/22 at 1434, For piggyback infusion, administer at same rate as piggyback for a total of 25 mL. Enter 25 mL into dose field and piggyback rate into rate field of order. If piggyback is infusing at a rate less than 100 mL/hr, enter 25 mL into dose field and 100 mL/hr into rate field of order. For KVO fluids, enter rate of 20 mL/hr or less into rate field of order., PACU only balanced salts (BSS) 500 mL, EPINEPHrine (EPINEPHrine HCL) 1 mg/mL 0.2 mg (CANCELED) PRN, Starting on Chayo 08/16/22 at 1355, Intra-op 1355 (Given - Provid er: Josesito Basurto MD - Comment: FOR PHACO) balanced salts plus (BSS) ophthalmic solution (CANCELED) PRN, Starting on Chayo 08/16/22 at 1355, Intra-op 1355 (Given - Provid er: Josesito Basurto MD)1407 (Given - Provider: Josesito Basurto MD) bupivacaine (PF) (MARCAINE) 0.5 % injection 1 mg (COMPLETED) 1 mg (0.2 mL), Ophthalmic, EVERY 5 MIN PRN, 2 doses, Starting on Chayo 08/16/22 at 1109, Until Chayo 4 at 1211, pre-op, One drop to operative eye(s) for 2 doses 5 minutes apart, prior to surgery, Pre-op (day of surgery) 1207 (Given - Provid er: Sheila Bell RN)1211 (Given - Provider: Sheila Bell RN) bupivacaine (PF) (MARCAINE) 0.5 % injection (CANCELED) PRN, Starting on Chayo 08/16/22 at 1345, Until Chayo 4 at 1414, Intra-op 1345 (Given - Provid er: Josesito Basurto MD - Comment: PERIBULBAR BLOCK) chondroitin-sodium hyaluronate (DUOVISC) intra-ocular kit (CANCELED) PRN, Starting on Chayo 08/16/22 at 1356, Until Chayo 423 at 1414, Intra-op 1356 (Given - Provid er: Josesito Basurto MD - Comment: ON BACK TABLE PER SURGEON REQUEST) ciprofloxacin (CILOXAN) 0.3 % ophthalmic solution (CANCELED) PRN, Starting on Chayo 08/16/22 at 1410, Until Chayo 08/16/22 at 1414, Intra-op 1410 (Given - Provid er: Kenna Marquez RN) diphenhydrAMINE (BENADRYL) injection 12.5 mg 12.5 mg, IntraVENous, ONCE PRN, 1 dose, Starting on Chayo 08/16/22 at 1434, Until Sat08/17/22 at 1434, Itching, PACU only fentaNYL (SUBLIMAZE) injection 25 mcg 25 mcg, IntraVENous, EVERY 5 MIN PRN, 4 doses, Starting on Chayo 08/16/22 at 1434, Until Discontinued, Pain Moderate (4-6), Phase I - Initial therapy for moderate pain., PACU only fentaNYL (SUBLIMAZE) injection 50 mcg 50 mcg, IntraVENous, EVERY 5 MIN PRN, 2 doses, Starting on Chayo 08/16/22 at 1434, Until Discontinued, Pain Severe (7-10), For Phase I. If Phase II oral narcotics have been administered in the last 60 minutes, do not administer IV narcotics unless specifically approved by provider., PACU only hyaluronidase human (HYLENEX) injection (CANCELED) PRN, Starting on Chayo 08/16/22 at 1345, Intra-op 1345 (Given - Provid er: Josesito Basurto MD - Comment: PERIBULBAR BLOCK) lidocaine 0.75%, EPINEPHrine 0.025% in BSS ophthalmic injection (CANCELED) PRN, Starting on Chayo 08/16/22 at 1358, Until Chayo 08/16/22 at 1414, Intra-op 1358 (Given - Provid er: Josesito Basurto MD - Comment: ON BACK TABLE PER SURGEON REQUEST) lidocaine PF 1 % injection 1 mL (COMPLETED) 1 mL, IntraDERmal, ONCE PRN, 1 dose, Starting on Chayo 08/16/22 at 1109, Until Chayo 08/16/22 at 1204, IV start, Pre-op (day of surgery) 1204 (Given - Provid er: Sheila Bell RN) lidocaine PF 4 % injection (CANCELED) PRN, Starting on Chayo 08/16/22 at 1345, Until Chayo 08/16/22 at 1414, Intra-op 1345 (Given - Provid er: Josesito Basurto MD - Comment: PERIBULBAR BLOCK) zygwysyk-zvzzurjqw-mzbdxmbw ophthalmic ointment (CANCELED) PRN, Starting on Chayo 08/16/22 at 1410, Intra-op 1410 (Given - Provid er: Kenna Marquez RN) ondansetron (ZOFRAN) injection 4 mg 4 mg, IntraVENous, ONCE PRN, 1 dose, Starting on Chayo 08/16/22 at 1434, Until Sat08/17/22 at 1434, Nausea, Initial antiemetic therapy., PACU only prednisoLONE acetate (PRED MILD) 0.12 % ophthalmic suspension (CANCELED) PRN, Starting on Chayo 08/16/22 at 1410, Until Chayo 08/16/22 at 1414, Intra-op 1410 (Given - Provid er: Kenna Marquez RN) sodium chloride flush 0.9 % injection 5-40 mL 5-40 mL, IntraVENous, PRN, Starting on Chayo 08/16/22 at 1109, Until Discontinued, Line Care, After every IV line use, For Line Patency: Peripheral IV = 5 mL; Midline or Central Line = 10 mL/lumen. If following IV push medication, administer flush at same rate as the IV push. Flush volume is determined by type of infusion therapy being given. For non-viscous solutions use: Peripheral IV = 5 mL Midline or Central Line = 10 mL/lumen For viscous solutions (i.e. blood components, parenteral nutrition, contrast media, or after obtaining blood sample) use: Peripheral IV = 10 mL Midline or Central Line = 20 mL/lumen, Pre-op (day of surgery) sodium chloride flush 0.9 % injection 5-40 mL 5-40 mL, IntraVENous, PRN, Starting on Chayo 08/16/22 at 1434, Until Discontinued, Line Care, After every IV line use, For Line Patency: Peripheral IV = 5 mL; Midline or Central Line = 10 mL/lumen. If following IV push medication, administer flush at same rate as the IV push. Flush volume is determined by type of infusion therapy being given. For non-viscous solutions use: Peripheral IV = 5 mL Midline or Central Line = 10 mL/lumen For viscous solutions (i.e. blood components, parenteral nutrition, contrast media, or after obtaining blood sample) use: Peripheral IV = 10 mL Midline or Central Line = 20 mL/lumen, PACU only timolol (TIMOPTIC) 0.5 % ophthalmic solution (CANCELED) PRN, Starting on Chayo 08/16/22 at 1410, Until Chayo 08/16/22 at 1414, Intra-op 1410 (Given - Provid er: Kenna Marquez RN) FOR RECORDS PERTAINING TO PATIENTS WHO ARE OR HAVE BEEN ENROLLED IN A CHEMICAL DEPENDENCY/SUBSTANCEABUSE PROGRAM, SOME INFORMATION MAY BE OMITTED. This clinical summary was aggregated from multiple sources. Caution should be exercised in using it in the provision of clinical care. This summary normalizes information from multiple sources, and as a consequence, information in this document may materially change the coding, format and clinical context of patient data. In addition, data may be omitted in some cases. CLINICAL DECISIONS SHOULD BE BASED ON THE PRIMARY CLINICAL RECORDS. [facility]. provides no warranty or guarantee of the accuracy or completeness of information in this document.
--- NOTE | 2023-06-06 13:47 | CT_ITS ---
[address] [address] Patient Name: NU RIBEIRO MRN: [id number] date: 1950 Sex: F Assigned Patient Location: LAB Current Patient Location: LAB Accession/Order Number: [id number] Exam Date: 06/06/2023 14:15 Report Date: 06/06/2023 14:57 At the request of: NON-STAFF PHYSICIAN Procedure: CT head/brain wo/w con EXAM: CT head/brain wo/w con HISTORY: Poor Short Term Memory R41.3 COMPARISON: None. TECHNIQUE: Axial CT scans through the head were obtained without IV contrast administration. Dose reduction techniques were achieved by using: automated exposure control and/or adjustment of mA and /or kV according to patient size and/or use of iterative reconstruction technique. FINDINGS: There is no evidence of acute intracranial hemorrhage or abnormal extra-axial fluid collection. No mass effect or midline shift is seen. There is no evidence of large acute territorial infarction. There is no hydrocephalus. There is a tiny remote lacunar infarct in the left basal ganglia. Mild enlarged cortical sulci, consistent with age appropriate cerebral atrophy. Mild low-attenuation scattered foci are present in supratentorial white matter, likely represents chronic microvascular ischemia. Mild atherosclerotic calcifications of anterior and posterior circulations. To the limit of CT, the posterior fossa appears unremarkable. Empty sella is noted. No definite acute fracture is identified. Soft tissues are unremarkable. The visualized orbits show no abnormality. The visualized paranasal sinuses show no air-fluid level. There are partial opacifications of ethmoid air cells. Mastoid air cells are clear. CT/CT head/brain wo/w con IMPRESSION: No CT evidence of acute intracranial abnormality. Tiny remote lacunar infarct in left basal ganglia. Mild chronic microvascular ischemia and involutional changes. Incidental note of empty sella. Electronically authenticated by: SAFIA WARD Date: 06/06/2023 14:57
[2023-06-06 14:02] LABS: Estimated GFR (African America >60 (>=60); Estimated GFR (Non-African Ame >60 (>=60)
== END 2023-06-06 13:32 | disposition home or self-care (01) ==
LOC: LAB 13:31
DX: R41.3 Other amnesia (principal); I63.81 Other cerebral infarction due to occlusion or stenosis of small artery; I67.82 Cerebral ischemia
CPT/HCPCS: 36415; 70470; 82565; Q9967

== ENCOUNTER 2023-06-10 12:54 | Outpatient (OUT) | payer OTHER, SELFPAY ==
--- OUTSIDE RECORDS SUMMARY | 2023-06-10 12:58 | XMS_ITS | CCD ---
Author Name Unknown Address [address] [place] [address] Organization [facility] Care Team Providers Care Chief Customer Officer Name Role Phone TRIPP PORTILLO Unavailable Unavailable LAZ PORTILLO Unavailable Unavailabl e TRIPP PORTILLO Unavailable Unavailable LAZ PORTILLO Unavailable Unavailabl Sulaiman Osorio Primary Care Provider Laz Portillo Primary Care Provider [phone] Laz Portillo MD Primary Care Provider Laz [...] JOSESITO Admitting Unavailable BASURTO, JOSESITO Attending Unavailable [facility] Primary Care Unavailabl e GATO CANO Referring Unavailable [facility] Primary Care Unava ilable GATO CANO Referring Unavailable ALLYSSA LOPEZ Attending Unavailable [facility] Unava ilable [facility] Primary Care Unava ilable GATO CANO Referring Unavailable GATO CANO Attending Unavailable [facility] Primary Care Unava ilable Medications Current Medications [...] Drug Class(es) Dates Sig (Normalized) Sig (Original) [id number] 200 actuat albuterol 0.09 mg/actuat metered dose [...] in female, estrogen receptor positive (HCC) , penitentiary (current) use of aromatase inhibitors Take 1 [...] on above: INHALE 2 PUFFS BY [facility] TWICE DAILY RINSE MOUTH AFTER USE hydroCHLOROthiazide [...] Basophils (Bld) [#/Vol] 0.05 10*3/uL Normal <0.11 [facility] Comment on above: Order Comment: Speci men Type: BLOOD SPECIMEN Ordering Facility: [facility] Address: [address] [place] [id number] Performed By: #### 5 7021-8 #### [facility] CLIA [id number] [address] [place] [address] 23493 Basophils/100 WBC (Bld) 0.7 % Normal [facility] Comment on above: Order Comment: Speci men Type: BLOOD SPECIMEN Ordering Facility: [facility] Address: [address] [address] Performed By: #### 5 7021-8 #### [facility] CLIA [id number] [address] [place] [address] Differential cell count method Nom (Bld) Auto Normal [facility] Comment on above: Order Comment: Speci men Type: BLOOD SPECIMEN Ordering Facility: [facility] Address: [address] [address] Performed By: #### 5 7021-8 #### [facility] CLIA [id number] [address] [place] [address] 13990 Eosinophils (Bld) [#/Vol] 0.50 10*3/uL High <0.46 [facility] Comment on above: Order Comment: Speci men Type: BLOOD SPECIMEN Ordering Facility: [facility] Address: [address] [address] Performed By: #### 5 7021-8 #### [facility] CLIA [id number] [address] [place] [address]2067 Eosinophils/100 WBC (Bld) 7.4 % Normal [facility] Comment on above: Order Comment: Speci men Type: BLOOD SPECIMEN Ordering Facility: [facility] Address: [address] [address] Performed By: #### 5 7021-8 #### [facility] CLIA [id number] [address] [place] [address] Erythrocyte distribution width (RBC) [Ratio] 12.8 % Normal 11.5-15.0 [facility] Comment on above: Order Comment: Speci men Type: BLOOD SPECIMEN Ordering Facility: [facility] Address: [address] [address] Performed By: #### 5 7021-8 #### [facility] CLIA [id number] [address] [place] [address] Hematocrit (Bld) [Volume fraction] 36.8 % Normal 36.0-46.0 [facility] Comment on above: Order Comment: Speci men Type: BLOOD SPECIMEN Ordering Facility: [facility] Address: [address] [place] [address] Performed By: #### 5 7021-8 #### [facility] CLIA [id number] [address] [place] [address] 12603 Hemoglobin (Bld) [Mass/Vol] 12.1 g/dL Normal 11.5-15.5 [facility] Comment on above: Order Comment: Speci men Type: BLOOD SPECIMEN Ordering Facility: [facility] Address: [address] [place] [address] Performed By: #### 5 7021-8 #### [facility] CLIA [id number] [address] [place] [address] Immature granulocytes (Bld) [#/Vol] 10*3/uL Normal <0.10 [facility] Comment on above: Order Comment: Speci men Type: BLOOD SPECIMEN Ordering Facility: [facility] Address: [address] [place] [address] Performed By: #### 5 7021-8 #### [facility] CLIA [id number] [address] [place] [address]2258 Immature granulocytes/100 WBC (Bld) 0.1 % Normal [facility] Comment on above: Order Comment: Speci men Type: BLOOD SPECIMEN Ordering Facility: [facility] Address: [address] [place] [address] Performed By: #### 5 7021-8 #### [facility] CLIA [id number] [address] [place] [address] 49866 Lymphocytes (Bld) [#/Vol] 1.84 10*3/uL Normal 1.00-4.00 [facility] Comment on above: Order Comment: Speci men Type: BLOOD SPECIMEN Ordering Facility: [facility] Address: [address] [address] Performed By: #### 5 7021-8 #### [facility] CLIA [id number] [address] [place] [address] 54718 Lymphocytes/100 WBC (Bld) 27.3 % Normal [facility] Comment on above: Order Comment: Speci men Type: BLOOD SPECIMEN Ordering Facility: [facility] Address: [address] [address] Performed By: #### 5 7021-8 #### [facility] CLIA [id number] [address] [place] [address] 91822 MCH (RBC) [Entitic mass] 28.7 pg Normal 26.0-34.0 [facility] Comment on above: Order Comment: Speci men Type: BLOOD SPECIMEN Ordering Facility: [facility] Address: [address] [address] Performed By: #### 5 7021-8 #### [facility] CLIA [id number] [address] [place] [address] 28168 MCHC (RBC) [Mass/Vol] 32.9 g/dL Normal 30.5-36.0 [facility] Comment on above: Order Comment: Speci men Type: BLOOD SPECIMEN Ordering Facility: [facility] Address: [address] [address] Performed By: #### 5 7021-8 #### [facility] CLIA [id number] [address] [place] [address] 67978 MCV (RBC) [Entitic vol] 87.4 fL Normal 80.0-100.0 [facility] Comment on above: Order Comment: Speci men Type: BLOOD SPECIMEN Ordering Facility: [facility] Address: [address] [address] Performed By: #### 5 7021-8 #### [facility] CLIA [id number] [address] [place] [address] 51333 Monocytes (Bld) [#/Vol] 0.44 10*3/uL Normal <0.87 [facility] Comment on above: Order Comment: Speci men Type: BLOOD SPECIMEN Ordering Facility: [facility] Address: [address] [address] Performed By: #### 5 7021-8 #### [facility] CLIA [id number] [address] [place] [address] 61473 Monocytes/100 WBC (Bld) 6.5 % Normal [facility] Comment on above: Order Comment: Speci men Type: BLOOD SPECIMEN Ordering Facility: [facility] Address: [address] [address] Performed By: #### 5 7021-8 #### [facility] CLIA [id number] [address] [place] [address] 60087 Neutrophils (Bld) [#/Vol] 3.89 10*3/uL Normal 1.45-7.50 [facility] Comment on above: Order Comment: Speci men Type: BLOOD SPECIMEN Ordering Facility: [facility] Address: [address] [address] Performed By: #### 5 7021-8 #### [facility] CLIA [id number] [address] [place] [address] 92394 Neutrophils/100 WBC (Bld) 58.0 % Normal [facility] Comment on above: Order Comment: Speci men Type: BLOOD SPECIMEN Ordering Facility: [facility] Address: [address] Performed By: #### 5 7021-8 #### [facility] CLIA [id number] [address] [place] [address] 73748 Nucleated RBC (Bld) [#/Vol] 10*3/uL Normal <0.01 [facility] Comment on above: Order Comment: Speci men Type: BLOOD SPECIMEN Ordering Facility: [facility] Address: [address] Performed By: #### 5 7021-8 #### [facility] CLIA [id number] [address] [place] [address] Nucleated RBC/100 WBC (Bld) [Ratio] 0.0 /[address] [facility] Comment on above: Order Comment: Speci men Type: BLOOD SPECIMEN Ordering Facility: [facility] Address: [address] [place] [address] Performed By: #### 5 7021-8 #### [facility] CLIA [id number] [address] [place] [address] 17098 Platelet mean volume (Bld) [Entitic vol] 9.6 fL Normal 9.0-12.7 [facility] Comment on above: Order Comment: Speci men Type: BLOOD SPECIMEN Ordering Facility: [facility] Address: [address] [place] [address] Performed By: #### 5 7021-8 #### [facility] CLIA [id number] [address] [place] [address] 49907 Platelets (Bld) [#/Vol] 226 10*3/uL Normal 150-400 [facility] Comment on above: Order Comment: Speci men Type: BLOOD SPECIMEN Ordering Facility: [facility] Address: [address] [place] [address] Performed By: #### 5 7021-8 #### [facility] CLIA [id number] [address] [place] [address] 89165 RBC (Bld) [#/Vol] 4.21 10*6/uL Normal 3.90-5.20 [facility] Comment on above: Order Comment: Speci men Type: BLOOD SPECIMEN Ordering Facility: [facility] Address: [address] [place] [address] Performed By: #### 5 7021-8 #### [facility] CLIA [id number] [address] [place] [address] 88254 WBC (Bld) [#/Vol] 6.73 10*3/uL Normal 3.70-11.00 [facility] Comment on above: Order Comment: Speci men Type: BLOOD SPECIMEN Ordering Facility: [facility] Address: [place] [address] Performed By: #### 5 7021-8 #### [facility] CLIA [id number] [address] [place] [address] 60982 CNOVSPon 01-11-2023 CNOVSP Visit (SP) Office ([place]) -------- NATASHA RIBEIRO ([id number]) 1950 F Date Time Provider Department 01/11/23 2:00 PM ALLYSSA LOPEZ During your visit today, we recorded the following information about you: Temperature Pulse Respiration Blood pressure 97.7 degrees 75/minute 16/minute 125/59 Weight Height 73.8 kg 1.613 m Allyssa Lopez APRN.ORGANIZATIONAL EFFECTIVENESS CONSULTANT 01/11/2023 3:21 PM Signed PATIENT NAME: Natasha [...] ductal carcinoma, largest invasive component 0.8 cm. ER/NM positive, HER-2 negative, Oncotype recurrence score low [...] as return. Continue Vit D and Calcium rurk-yry-xyblbar. INTERIM HISTORY: Updated Visit, January 11, 2023: [...] that she would lose coverage here at [facility]. Lost her last August 2021 He [...] currently on arimidex. 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 This weighs heavily on her. Screening Mammography completed (more content not included)... Normal [facility] Comprehensive metabolic 2000 panelon 01-11-2023 Albumin [Mass/Vol] 4.4 g/dL Normal 3.9-4.9 [facility] Comment on above: Order Comment: Vicky baron Type: BLOOD SPECIMEN Ordering Facility: [facility] Address: [address] [place] [address] Performed By: #### 2 4323-8 #### [facility] CLIA [id number] [address] [place] [address] 40475 ALP [Catalytic activity/Vol] 63 U/L Normal 34-123 [facility] Comment on above: Order Comment: Vicky baron Type: BLOOD SPECIMEN Ordering Facility: [facility] Address: [address] [place] [address] Performed By: #### 2 4323-8 #### [facility] CLIA [id number] [address] [place] [address] ALT [Catalytic activity/Vol] 17 U/L Normal 7-38 [facility] Comment on above: Order Comment: Speci men Type: BLOOD SPECIMEN Ordering Facility: [facility] Address: [address] [address] Performed By: #### 2 4323-8 #### [facility] CLIA [id number] [address] [place] [address] 24284 Anion gap [Moles/Vol] 9 mmol/L Normal 9-18 [facility] Comment on above: Order Comment: Speci men Type: BLOOD SPECIMEN Ordering Facility: [facility] Address: [address] [place] [address] Performed By: #### 2 4323-8 #### [facility] CLIA [id number] [address] [place] [address] 31109 AST [Catalytic activity/Vol] 17 U/L Normal 13-35 [facility] Comment on above: Order Comment: Speci men Type: BLOOD SPECIMEN Ordering Facility: [facility] Address: [address] [place] [address] Performed By: #### 2 4323-8 #### [facility] CLIA [id number] [address] [place] [address] 11021 Bilirubin [Mass/Vol] 1.0 mg/dL Normal 0.2-1.3 [facility] Comment on above: Order Comment: Speci men Type: BLOOD SPECIMEN Ordering Facility: [facility] Address: [address] [address] Performed By: #### 2 4323-8 #### [facility] CLIA [id number] [address] [place] [address] 08900 Calcium [Mass/Vol] 9.8 mg/dL Normal 8.5-10.2 [facility] Comment on above: Order Comment: Speci men Type: BLOOD SPECIMEN Ordering Facility: [facility] Address: [address] [address] Performed By: #### 2 4323-8 #### [facility] CLIA [id number] [address] [place] [address] 34465 Chloride [Moles/Vol] 103 mmol/L Normal 97-105 [facility] Comment on above: Order Comment: Speci men Type: BLOOD SPECIMEN Ordering Facility: [facility] Address: [address] [address] Performed By: #### 2 4323-8 #### [facility] CLIA [id number] [address] [place] [address] 63642 CO2 [Moles/Vol] 28 mmol/L Normal 22-30 [facility] Comment on above: Order Comment: Speci men Type: BLOOD SPECIMEN Ordering Facility: [facility] Address: [address] [address] Performed By: #### 2 4323-8 #### [facility] CLIA [id number] [address] [place] [address] 47244 Creatinine [Mass/Vol] 0.80 mg/dL Normal 0.58-0.96 [facility] Comment on above: Order Comment: Speci men Type: BLOOD SPECIMEN Ordering Facility: [facility] Address: [address] [place] [address] Performed By: #### 2 4323-8 #### [facility] CLIA [id number] [address] [place] [address] 75344 Creatinine and Glomerular filtration rate.predicted panel (S/P/Bld) 77 mL/min/1.73m??? Normal >=60 [facility] Comment on above: Order Comment: Speci men Type: BLOOD SPECIMEN Ordering Facility: [facility] Address: [address] [place] [address] Result Comment: Dara mated Glomerular Filtration Rate [...] GFR. Performed By: #### 2 4323-8 #### [facility] CLIA [id number] [address] [place] [address] 46460 Glucose [Mass/Vol] 104 mg/dL High 74-99 [facility] Comment on above: Order Comment: Vicky baron Type: BLOOD SPECIMEN Ordering Facility: [facility] Address: [address] [place], [place] [address] Result Comment: The [place] Diabetes Association (ADA) provides guidance for cutoff [...] Standards of Medical Care in Diabetes 2016, [place] [employer]. Diabetes Care. 2016.39(Suppl 1). Performed By: #### 2 4323-8 #### [facility] CLIA [id number] [address] [place] [address] 55761 Potassium [Moles/Vol] 4.3 mmol/L Normal 3.7-5.1 [facility] Comment on above: Order Comment: Vicky baron Type: BLOOD SPECIMEN Ordering Facility: [facility] Address: [address] [id number] Performed By: #### 2 4323-8 #### [facility] CLIA [id number] [address] [place] [address] 32508 Protein [Mass/Vol] 6.7 g/dL Normal 6.3-8.0 [facility] Comment on above: Order Comment: Vicky baron Type: BLOOD SPECIMEN Ordering Facility: [facility] Address: [address] [id number] Performed By: #### 2 4323-8 #### [facility] CLIA [id number] [address] [place] [address] 22616 Sodium [Moles/Vol] 140 mmol/L Normal 136-144 [facility] Comment on above: Order Comment: Speci men Type: BLOOD SPECIMEN Ordering Facility: [facility] Address: [address] [address] Performed By: #### 2 4323-8 #### [facility] CLIA [id number] [address] [place], [place] [address] Urea nitrogen [Mass/Vol] 18 mg/dL Normal 7-21 [facility] Comment on above: Order Comment: Speci men Type: BLOOD SPECIMEN Ordering Facility: [facility] Address: [address] [place] [address] Performed By: #### 2 4323-8 #### [facility] CLIA [id number] [address] [place], [place] [address] CNOVSPon 07-20-2022 CNOVSP Visit (SP) Office ([place]) -------- NATASHA RIBEIRO ([id number]) 1950 F Date Time Provider Department 07/20/22 [...] prior clinic note dated: March 23, 2021 ([facility]) PRIMARY CARE PHYSICIAN: Dr. Laz [...] ductal carcinoma, largest invasive component 0.8 cm. ER/NM positive, HER-2 negative, Oncotype recurrence score low [...] that she would lose coverage here at [facility]. Lost her last August 2021 He [...] currently on arimidex. 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 Normal [facility] Cristobal 07-17-2022 CNPN Telephone ([place]) -------- NATASHA RIBEIRO ([id number]) 1950 F Date Time Provider Department 07/17/22 GATO CANO SHAINAGIOVANNY During your visit today, we recorded the following information about you: Eve Yony 07/17/2022 3:36 PM Signed Orders are . Please sign and/or add labs. Eve Yony Allergies As of Date: 07/17/2022 (No Known Allergies) Date Reviewed: 06/19/2022 Reviewed by: Allyssa Lopez APRN.ORGANIZATIONAL EFFECTIVENESS CONSULTANT - Fully Assessed Reason for Visit: Lab Orders [8191] Primary Visit Diagnosis:Malignant neoplasm of upper-outer quadrant of left breast in female, estrogen receptor positive (HCC) [C50.412, Z17.0] Order(s):CBC + DIFF [SQCBCDIF] Order #: [id number] STANDING COMP METABOLIC PANEL [SQCMP] Order #: [id number] STANDING Prescriptions as of 07/21/2022 - ADVAIR [...] Status:Closed by GATO CANO on 07/21/[address] [facility] MG MAMM LUIS M DIAG W CADon MG MAMM LUIS M DIAG W CAD Patient: NU RIBEIRO Exam Date: 07/03/2022 : 1950 Gender:F Ordering : DR ALLYSSA LOPEZ [facility] Admission #: [id number] Family : Order #: [id number] CLICK HERE TO VIEW EXAM RADIOLOGY REPORT [...] Treatments None Family Cancers None LOCATION: [facility] BREAST COMPOSITION: Scattered areas fibroglandular density. [...] Nixon M.D. on 07/03/2022 at 15:24 Normal [facility] 06-19-2022 [facility] Telephone ([employer]) -------- NATASHA RIBEIRO ([id number]) 1950 F Date Time Provider Department 06/19/22 VAN LIRIANO During your visit today, we recorded the following information about you: Van Liriano RN 06/19/2022 3:54 PM Signed Received call from pt requesting mammogram order be sent to [facility]. BANDAR: Order pending, please review and sign. TORREY Boothe APRN.BELEN 06/19/2022 4:12 PM Signed Signed. RODOLFO Reyes RN 06/20/2022 9:13 AM Signed Order faxed as requested. Pt notified. Van Liriano RN Allergies As of Date: 06/19/2022 (No Known Allergies) Date Reviewed: 06/19/2022 Reviewed by: Allyssa Lopez APRN.ORGANIZATIONAL EFFECTIVENESS CONSULTANT - Fully Assessed Reason for Visit: Orders [681] Primary Visit Diagnosis:Malignant neoplasm of upper-outer quadrant of left breast in female, estrogen receptor positive (HCC) [C50.412, Z17.0] Order(s):[facility]AT [[id number]] Order #: [id number] FUTURE Prescriptions as of 06/20/2022 - anastrozole [...] Status:Closed by VAN LIRIANO on 06/20/[address] [facility] COVID/FLU/RSV RT-PCRon 05-30 SARS-CoV-2 (COVID-19) RNA DARIUS+probe Ql (Unsp spec) Negative [facility] [employer] Other COVID/FLU/RSV RT-PCR Negative [facility] [employer] Other HEMOGLOBINon 02-20-2022 Hemoglobin (Bld) [Mass/Vol] 12.8 g/dL Normal 12.0-16.0 [facility] Comment on above: Performed By: #### H GB #### [facility] [address] [place] [address] Dr. Vinicius Serna XR FOOT LT MIN [...] by: KIM PHELAN Date: 2022-01-28 17:15 Normal [facility] Coding Summaryon 03-30-2021 Coding Summary HTMLBase 64 KignwylyITy6oGq+PGhlYWQ+ MS9RRJFzF87gqTHkzA5ZJ0hF OI2JGBFBXHDSUI0KLA6mmOY0 VGtdE7UakwKp YalscJIwWL52FLu5JGQ5mSbe WNqrfJ2nsFUgB9i0PxBmSR79 dQ59DYaeONXyTdA9ClTloatc bWFy D9enGgSjmYWbLlt+PHRhYmxl IHdpZHRoPScxMDAlJyBzdHls JC4lYf2xESPwJQEsbAeagNTs OiBj r6ocPUXsKFakDA3qtYfoG5Nw tNM2PQEap8n9Nu44dFB+PHRk JMS6bCknBYnlz530RjZcq4oq IDM3 wLTdPVezRFM3B43se1X5EFKn DPSkMHD5nMX2hM8suHkpansl B8DliSFkPvC6XJS9cCCmwV7o bGln bbircF0aCtj+Y55IXL9CEIOF DE9KQer4I2SiEcrpgOI+PC90 HYQuDC86gYKviACrc5ysqDj1 JzEw CUErKJO0bKcwCHjja7GeJXGq A41duGMwh2Q5CRHtpNdmdMRw SjQhbDD8bS7eQLqkztarr7re dzsn Whdpx5extf08iV74X94jQOtq QWMqAXN4QDEkKTPctZfpri7w kQ6jTd0+MXnns2lcj8qvlKr9 IjIw ZVMdgwIkjGdjSOF5s8MgSy53 V6LseQhpe3GqWja2zl15rXBr v5P2xJZ1VUuaVISucI5hQZif ZnQ6 IHEuJkJwdJ51kMKqGIokSg5c jRycaPlvZF1wAKQlyyjyOOUg eS4nPOXelXBluLuxII7iNQWs bjtm u830XbFqQFA1FSYikGQkR4Ag rB0mIsWuSWCnPSMfM1QydYDd YXxmY071EBjxOfY9KFJmtaDs Y2Fs TMPgwXzsVwQ3a3J4Ae8Zj9Xa wlarJJM0IJtqYIMeQmH2QpRr ToV5Y4ZjIlv8QXYywYfrNB3u J3Bh YBHxrfkahrutzTR6UCKjKYHu dM07oOTuDOoqOr4av5M0e144 LAMzLIEffO64Id4bqFdnTUDq dCBU tE8sowkow6uxaqseGrTfCRCd ZPs0RMy6WJDqmDxdUhXzXFW7 DgQ9KEJ9aNWwhC1eoOqpmlnh dG9w Oyc+W70plN1qTFN6TBS0ujxh UDFyqpKoBQ17OK60E4BlKlnr dGFibGU+YNNrfhFtqIieZI1e YmFj b4mnr9OgWWqaR4CvGPUmYIlz Aev0QOTfYTM9fGH7uK8qOSRj JRbxc1K2kNW6V8KupcSxnj4l b2xs SCOeZIfdY92naJHbk1R8HXWt mXL8UNVioRcpDuYmbQ60Iyq+ QTWbqCvut6EvJuwgz4cir7bt dGg9 QvRjQONjjqOzwXjyOJK4h3Tb Uw18E16sEYoeRERkFAJkYGGo OJMxnHlikh6qlL6iEg3+PGNv bCB3 vRW8uX1cMQJtMqS3TQerS381 VvWjkXKaKxmsc6dgs1yerPl7 FuFcXYPtddHzcLweOMO5c6Cz Lz48 K80fOLjsOUNzKNRwSKZjUSHk kYvurn3kdM1oSk2+PD7ns2zm uo56bZ53rIC+LFHaHJA3fGqr PSdw MXObnQ0nKQusLnS7MLOzYfXr uF34lTEqXBnaMk9cuFdesAnx WJ5rZULqbqzkq236MgJpy8ad IDEw zXSnRFquAJL6H02ic1Z0EJZu NHDoCOB4fDO7tJ3syRjmipnc bGVmdDsgdmVydGljYWwtYWxp Z246 IHRvcDsnPlBhdGllbnQgTmFt QKn1K1EzSix4GKVvtOotDG8a oDYpYNqlVf7psOnhjBnjDJ1e NTBp jkesv732KgHyd4uhNNTglPOp QLtiXDJ0G66po5B1XPKbLEEl RIZ4bFJ4hV4xnPvaqqltpALw dDsg npDoyCnjNCscYFsnM586IVVj cEmoLfFybdSwUNClsSE6HU31 QZ18kHCpr9M8bSB5M9KxUFZo bmct mwxkdAM5RUDzLKWmjM17Du1j ePzdTd2lXLFiYPA9WHCnuKDs B3ZevQ0eKhXeCRAcFRXiY3Fa eHQt ARitN851DYshCnY8GZWyrqDi E1OvICIvxAyoQtZ5o6O9Qc5C E8B5VY42LF68gOQvm4A0uGC6 J3Bh FAQfztkiedclbKU3SXQmOOKb yQ02Ny3kuSgvZo8zDBQcNKV9 SXDnzMOrM5SknF3tQuFuHKAr MDAw Z1PltXBrBEauF985FFaoEdR3 KZKvspEeB1SfBGQtsRpxEdW7 t4D2Rz1UBKa9BB12PE87pCBy c3R5 cBH5S4TnLGQcenjbtsmxpVN0 WBJbUMJsxJ47Ge9dyBsqFp3y LUOhWJX6MIAbzKMgK8SjmD9a OiAj IGTcUPJcK3ImcNTgMUxwB865 HXuhNyY9WGYpfiGqL4QdIMJl lWeaTpT3o3T2Ai3KPISsRK17 IFR5 tLA8KL49WL30N6KcEosrgBBz bGU+PHRhYmxlIHdpZHRoPScx WWVyMqYzbOiiNU9pFt6nKWMa LWNv nZitsCPiJvGra0oyKJIpQJrv UI3ahDonI6WddBJ4GXCmw8p2 Eo67W16rW4GytMK+PGNvbCB3 aWR0 sQ8xNjLmZmH4PIbmP359WgHm pCWqYfeci8bzw5qfeIa4HsY6 VISpvoDihEcrMKD9g3MlIb75 Y29s IHdpZHRoPSIxNSUiIHZhbGln ad5ijL2bNb2+OQSorEY5uFY6 gN9mMzUcRxP9UEerI636ZcKn cCIv Hjqpm6cdr1qtpOh4YuYiOBMa pdUjmOtrXLH9g0BlIx13T3Ok mJupw2ZaQfc5sl07gSHma6C7 bGU9 K9OxBBPbsojckLMyvFbvYU9o PTEfueejCPLjaV3lUKJqP3o0 XuLcKgU3HIycJ4VjwhD0ACSj cHQg VJawTJW6O26qt0J6NLYuHMBx JLE8cIV4tK1wcDfxgdnmqTJm qEqmlcEzpWrkEKzfRUvuP349 IHRv uOunZSPteK1pXTTjsNWgzXin MN8kSQCwxoxzMfgMYnWQIDKT KCXFXUKDWD8BWXBHTI90GC13 dGQg z6T0pVH1W7DjTJBcidwbvwya kYQ1ECJoJBHakF40iQHnDPrl Tr9io0U0q597GMGoJPQnwH72 Zm9u hCdtGJYgvEPJgA9mbvgme0vf lwwrKyDoIWDwEBo7IKt3KREw aArcYzMlOUC9BiM3VXN5cGTx bC1h iHbayfzkpF4zHrd+MTAvMTIv XXe6BLuwbOB+THPdDAG6rZra WCauIHFhuD4cVSQuH5u0OpRz LjA1 GKprI8ZnRSQjdwkgZd16wE9i SzHzNsI9IOdmU9FgaqU7WVAq gOZeRXvvMYU6D65gq7F8RODd MDAw NTC7cNZ6vR8uwIsiqljeuFBu cYfwejEnwFwlISziUEuaT715 VNKtaAfjJjejXDwqTCDoSJ69 ZD48 hEJks0Q2qML8H8GkMGJfxjhr uvxxzNW7OIGxBPKdfS81uBYa RIxjUy9kn4E8g933RUIdKGHe aW47 Py7stHlhOETemTJAdX6oxnto s0uzbnnbWlPfXQKgEJo6DJz4 EHAvoPcuNuSlIPP9PcJ0CEI5 aWNh xP8zlAhwsihrkY8jQup+RkVN FXzBEX35AU58jCBnk3R5iVI8 E2WaKVUzmzpzbmeznZO3GFNu MDUw wC07aKUeYNwmRc4et7E4z990 CFJlZWGvzS53Sg7vlDzlLCBe aQYXxA9wopmxu6dkcpzbNpQm MDAw RYr8JZq5BJRjqCtiUiZxZWS5 XhS4FMH4gMSxlN5hlPxdtudm hY7xHxa+FS2kilrroaG1XW87 ZD48 T6EhYxjmaFPduFP+PHRhYmxl IHdpZHRoPScxMDAlJyBzdHls YP9cCj4wKYOfVQCyqGbhoQDh OiBj t2wyCJTpBHkqMY1llBwcE2Tc eSB3HOTot2d5Jb37F94hW1Vb dXA+FUFmzPX1kMT3eK2fSbZb IiB2 DBwkM813SkJteIFyKsadd0no m3pruTn5JcLkLAQtnkKwdHip TAE8l5LwRn01I94rEFrdECIl PSIy KEFmAOBtuLhbkp9sfQ6oYm2+ TIThpBX1pJX3sO1tAfOxVoD3 AVqhO933ShOoiGQrRkbgQ26e Z3Jv dXA+IAXoHsn0UBDwbMmaSG1a xYJsSTmrVx1zTXF1JaQjXfHx ADfsE3PlCPQmnjlpidzifMH7 IDAu KLGbfV06Kv1cqWslPj9tZRNw RFH3VYCvsZDvF2WcjE1dYzBg JRNyQETyT1NkaBYbAKrzS068 IGxl FbZ3NMKvuoBbL5QmXGHleZkp DzH3w2A9La8IqGihgDYjTF2y WyXmJNq1H9FjHei2LKRdiKun ZT0n cODzLQhfBo9mlNbxeQrkEN1q WDCrmzkfn001HcEhu9owLDFl fGPrGHmyJAI1X43ex8H0YIKa MDAw OEL5qVW8nI5ohAnupskrvPDl lQxzaaPemApsTQfxXZuiW298 PXDhiJbpZgWGTju1F2ArGqk7 ZCBz uBwkNU4syZIjVLizUe8vuUkx mMipQA2tYNLvhsogu005DvLl n1moBNQscVJzQYlvLZN0Q24b b3I6 BXEqJNTgHAO3wOM9hC8aeYtc bjogbGVmdDsgdmVydGljYWwt MVglT414HWWptWrfFh9FYdn1 L3Rk Fjq3OLHpaIomIR3crZKfDZxz Fu5zoCckgWrbHE2iIHErsthd x782XkXit7hnPBWniGCoDFtt ZXM7 P58ky2L1TIJuICDxLXG8rYQ3 dU9yvBvcgewttQCaqWqzdwJd nVvqVXewNGhbW112QKOknPrt PlBh eWVyOjwvdGQ+ZS97km05Q0Bj UzyhMgt5THGcQMH0nMD5bN6f HSVeQDbaw4Q8wYP7R6WrkqHo ci1j b2x (more content not included)... [facility] Coding Summary HTMLBase 64 IkwpeomxBUq3bSn+PGhlYWQ+ CW8JJQKeB63gqHVpgH1GD1dF GM8EIHFHKGFEII0JCC2xoKU4 OWeeS1ScwqIi RgivxRZyCM04EMq6JEQ2sKur CFifrU7vsHQqU5x7SzQgTE92 vT59HPqzJEKeEyL4QbWdbwih bWFy O3zeCeVamEWxNua+PHRhYmxl IHdpZHRoPScxMDAlJyBzdHls NS9sCn8iBFWvXSPrjTqgqYMs OiBj o9hwWVCeOLaiJE1tvZcxV1Dl uNX2MSLug1l2Im23jBD+PHRk FDQ0pPrtNYzyz397TcAwi0mo IDM3 oVNbQEozCCD2S98kl4F2KMDu SEPlEUS4iLW6mY1ljBuwtere K2TukWXxArU8HVQ1tWSaaG3j bGln rpquhZ8pQtc+J25MND5ULRYN LA8HShk4E2EcAmykaHU+PC90 LOKsTE19vFLplTVdz5srxQy1 JzEw RPPaWYD6jZclSRlur7XoKYBx H74fyQBjj7B2NZYnbGtqxPEd ScRjvXS9bJ8bNLrcnmshv0bj dzsn Dtuma5lfqm95uH05U68oFZuh TRKqFMW1BLEgYMPdnWprkb1n kN3mPw6+YEvly8ojc1vhxLh0 IjIw FYNsneRllJlaQCT2x5ErCr35 W6RctFpsq3AyFan1jw16gTVo w1U4uWR8WCcnURQajW4kFZaz ZnQ6 YFIyMnOfaL31gHBvHWkrIj9j nKyctLjaPR0nZFTgupuvKXPt aJ5fRODzoGLrsUbvOF9rTAXa bjtm z728RsCbONV5IISqoQUoZ9Pf vH1rTmDaCSGjTHFyO1XdxCGp QYzmD821ZMzzFaR4XEEpkjYx Y2Fs SNCwkBseEtE4o0N8Vf7To6Wj ggobAPE5RBlxCJQmTgJ4EmTf QrT6S7ZvNhz0ETKvgTxoGB0u J3Bh VXWgfsflasxlzTE4PPJqQZHw pB06vCMrXXawCj0rn7K6n812 ZAIcYRQbrJ86Sv6qdQmsCDWv dCBU vC2mxmgwj7dgfalxNgDhYDYs ERd1ULn5NGXmbVkjExArNWV5 RuB0UKC6bLUydR6zjZutluvl dG9w Oyc+L11knT3uVUU0MXN7dano CTMmrwHnXO48GD10C9McYjmg dGFibGU+IWExzqMzeXrxRH8u YmFj u4rqv0UcRVgjO3InDJAoGXli Pnx9QFRvLVR2lAW4iW0eEONm UOhch4D9uEE2Q9RhepMudb4u b2xs HVLwDPryY80ufEZyp8W2SYFj tPP7VTQtyJzaMsTbsC03Fdn+ OMKxpJdaq5VgJhjvs7yuu4uj dGg9 IlNaRQSkhzFrjOusOHV2t7Nq Zf07X53jHDtoVPHxNFEoHPSk SNAcfAvjkz8ftM9qYe0+PGNv bCB3 wBG1wW2wSOCrJaT0UBjhT946 MzJsfYVaMwqta9aox4rbsPz3 MmQnWQPuipUpbZyvDBC4w7Rl Lz48 E09tIIfaGUJdOCGvUJRiRQVr yPoudr0ksH6uNd0+HU7kz9sw lt40sV72aOY+SRYnVLO0cQdb PSdw SDFzsJ2uWQdqTpC2TXHmYdNn uK17vYWnHYneIk2ajTvbhFfq PD2zQIKzgnuow195XwTnl1sf IDEw qHGxZNwuFNL3Y24vp2A5KNFb EQQmCFL1fFR6bI1naEnvpocr bGVmdDsgdmVydGljYWwtYWxp Z246 IHRvcDsnPlBhdGllbnQgTmFt MPb4I0FyNzw8ZQUkvBlbGI9c mGUuMNanBb8vsSkalGqaCT7v NTBp leaoj093TuXtg8iiDHAsaKGx XLypTVD3A70mu2A8SLBjZXIt SFJ6cUT1wE3ohNjyprjpmFDr dDsg laEseAwuXUrhXLgqR783EMSq hPeaIeLybqXzDVGmsUJ5MG72 QJ32nGQbk4P0fBU4T7HeJSCj bmct damwyNN6FFXsQTBblW19Xj5l rVqvRd2tSCEhYWR2SMVuoCPv D8UlhI2gHqGpXKZuAMVcT0Pb eHQt DElaN624DKlmZqY1RNXtymEz U4NaRAUhyTkxBwO5p4D4Or8Z B1M9GB93CV69fBYwn3G1oEF8 J3Bh TUNugmvsoqmejXN8BNWdVWHf lK78Lw7ofDygDc3tACXmTPE1 QDVcgBNwA1NfxK6nNwPzELEx MDAw Q0JifKQbQTwcY304SSphFrE0 HUKwrtZaC2UkZZVmpMvnQuW1 n4H1Lo1YURl2OF48CO58fONk c3R5 uFQ0I9GkDQSjpulgluiecML5 FWCoYZXjnK01Qv0uqMjaRh8y PPEbAES8EAXvzTBbP0YvjX4d OiAj YILrJWMhH8HyyHKtIGyuP670 OEsjNsJ9CRHuopYdR2YoPREr yFvpElN3a4X3Pl3VRICzNT82 IFR5 vDD3XI29EJ21T1ZkGrfrpOBq bGU+PHRhYmxlIHdpZHRoPScx QBOlHkOhgGyjRU0lTh9pTEZv LWNv kOxzpSDhTjXki8hvCOXgKRdv DN5jrTqxC3VnlEY1LEBjt3g3 Jo48P57pZ1ZfaCM+PGNvbCB3 aWR0 pM0cSjLrHeK2IWfsT459FdCc pLYyJvcwp5rka1biwUr5BbF7 DIDfioZyxJhiWSH6k9MwQi81 Y29s IHdpZHRoPSIxNSUiIHZhbGln dc1ksL4vOe4+MMFyrFL6hZK4 yK3wClGeLmC5NFbqF495CwRa cCIv Upmry0htd9cbzEf3NlQsVTLw nnMjvQhdEAU5m0CvJi54V8Mt jOelc3ThWyg8bd70wLTdb0K7 bGU9 X7XlRWExzjmtfDHagDabES7q DKKehlfbZWOhbQ2xXHGfF5b9 FhUmXsF2FXlnJ2NxkpN9VADs cHQg MLyzECH0I75vu2H7DLPyOUPb KXR0gCO1wI5yaZbdldhzoREa xBcpfpUqpVmmDGnpVXejY482 IHRv zYhuICSigW5qMEMclFDutCxe QL6iBUDbqpvqMqpDUjZUAXKZ QSWPSDVXUX0MSJSGKJ81CM25 dGQg m2F2hQE4L0QuUHFuwlkrbwxh aOX6OMUwNGPseT02pXWqAXhj Qp3vq6Z1i510GPRvHPNgvN95 Zm9u wJimIIZrdMIXrB6kxebgq8fb fmajVaNaKVUsLCf0FAd4LOLi qTooPkMjKGJ0WoW2LRL1lBGs bC1h jLjwucpugG7zCnp+MTAvMTIv MQz5TAurvVY+IPIyQKC4nGcu UGsdLETgqE3sXFRaC7f5DaYb LjA1 LOutR8AxBFJxutywMs64nJ5d MpXmXeY5KAlfI9KysqV6GIAr mRUeQSwbMKI9Q73cv6U4JIPm MDAw HOE7xID9oZ1mxZjgtsbnlGIi iTfljjFefQnpPOboKVdhD639 DGDxhOxmZuidXEgkSYEaAR94 ZD48 cDIwd4S9oSY4J2RnSERtjuoz vhqszLU0CGXyMNNtuL67lGGu RBphUe4xg3N2x623HJYcHBAx aW47 Oq1syVlaNFMbrBHQyC4mjrqu i6nimhkbGbVaSWXwZKf8ILt5 TUOuyYbjDeRxBWI2QoM6UXP3 aWNh iC5ivGkyklbjlE3wOwi+RkVN JPyIUU32QA23wXGez0W9bWS5 B4CtVPAjvcttojckzNY0BRZg MDUw hQ90gLCkKPxcEy4gp6W7m349 QFUtNBPqqG03Uf7maQsiMCZl nIANhD4mefaob1orywjiAnLp MDAw WQv1PJy4IDGluNogPyNzYCV1 CxK3HCK4aRLhxQ7qfMaakcbv jP8eHdo+WI0mpxyyirV3ZP53 ZD48 O3AnQulpmNMwnKY+PHRhYmxl IHdpZHRoPScxMDAlJyBzdHls RR1bUf6nYYRfFBGxpItfxAIz OiBj n7hpALNvUKrbHK3wnUocV0Fh fFF0BFSmk1w7Au42T15rN1Dx dXA+BLYlvPJ5yIX4pZ2cLbOf IiB2 RQxyO108GdAhbQAqBtjqk7wr k7tgiNf1MxVpMATbtrCmuPgd OOG8r6YuBt47W99gVXnaCOKi PSIy OSNfTTHglZlpqi5poS9pJk1+ GBHkcDV4lWK6wH9iJlMjAdR2 YHzsR227BbKczTSvRjfpP08f Z3Jv dXA+BPFzBmw2EBHluXjfCX3y iFQtTHrgDd3aQAJ8VvKvLqHr GKreR9VxEIZwasvhfpmihYE9 IDAu DAXvmZ76Qk4meJgzAm5jZIWm MNX6PIMilLHeM6YxnC2cFvEd DKFdYBCgW9RjlGEfMFugI590 IGxl JmR1HTGksiJsW2CyHEQiyZko FyA2g4E2Sf9ZpRxesLNvUE7n FgKnJCl3W9SaBrt7ZGAfzWyw ZT0n wZEmKDumJh6flNpdfLitUB7l EWHpuxeon319WpXjo5pbLBKp kPKdAIjsBYR0F22pd2A4VUKb MDAw MNU2sWS6lM6ykMtaqjxeiSVz rVhcwfZcgImhQVbqRQeyU906 PEHnkVbcAqSFLqk2B8EuGlu1 ZCBz lTluAR0caVYcMTdtOt5bmElj kFnyCC6qFCDwpjvwu983UcAz l8zjATMqfZArEDilCBK2L31a b3I6 ZQTlFBPjLLA4hNR5xY7hcQtj bjogbGVmdDsgdmVydGljYWwt KZjeZ936TSZdcPbfGi5ZSdh7 L3Rk Ils1NLQxsKoeDA6odPRaDGul Pb6axDcrbZfaFQ0lGPCwakas s079KrAee0zfFRRqoYYuCIxp ZXM7 E08bl8Q9YVCvSNSrYVY1nAL0 rI1opYzqaowpxTLueBcluySc fOxyDVnyWJxzR094JCVfzYtd PlBh eWVyOjwvdGQ+KO05nw84S1Gy FdbxWqf4DUWdMZM3hHC4wV0e WZNpLOkvi0O9jKI4E7PhslRd ci1j b2x (more content not included)... [facility] Coding Summary HTMLBase 64 BpcckamyEMd4uNb+PGhlYWQ+ DS6DCHHwF34doIEnaZ0GX5cP LB8LMFWUOHCBMH2AYN5cdNO9 ZDkuH2WuzmBe YedrfWMvBM43LBw1QRK6nUaa CIbvrL5exGOkG4b5YoBrZH84 zT74MIfiWNOwIjP1EqJlvfyg bWFy C0laAhRzhZVkMoi+PHRhYmxl IHdpZHRoPScxMDAlJyBzdHls DU3rTs9wPCNaKODuyOrvtSRf OiBj z0buNMSbIAjcPM3idBqsH9Dc gHU9OIVwp2t9Je78vII+PHRk BYB6nXosACcst902CgKwf1zq IDM3 sVByMRziBKV7F53ss5C5MZEp ALKtOIS9sYF5wA2lmExxrrfj W1TzrYAnPoB0BZW9jRLjqU3c bGln xfkzuG0gVut+G99PKC7NDWRX MI4FPxc2S3OiLqakbBZ+PC90 XOCeCG93eRWkqOIhz9xxeTd5 JzEw TSJgSQV4vTyjHNdem5CmOZDd W34ilGQud5H0COJhyLaymQLq AeDfoFN8jK0bTClchzqdw3qe dzsn Hbqez7usho83xI19U91uSVpi TFQnMVZ7XXIfQYNnoTuexi1k rP2sHt1+MGmlb0knk4zthKi8 IjIw UUGgjdEswAnhZHG6t4QaWm38 T3MxdZsgj4DoRzs2gu82uCPf z6H1vTN0LMagVRGxaS1eFHae ZnQ6 ETAzDdAjpX29yUMkIWfqGi9m cQuxiXpvHP2tNRCuhxkbRCPb uO3dVLDojGGtpFnzFZ8kLIZt bjtm w338XkSyXNX8JCCmjFVbT6Pk eE9xRcMkDMZwMBVvK1LmwXDv OQnfI827QRcqQdN6TETflfQk Y2Fs AVUcaXltVmA2g2M2Vk4Zc9Wc jandPWD8RKztDAQsCwU4HkOr JyJ4F3PyMoy7MRSxtPruRW0w J3Bh MIVzzpjgpklxnUU9PRQpNTXk pM66gLOdADfwSd8ed2U1s757 UBEyRUZueT97Xz7rmTobMISy dCBU oW6qvffvm0efmbfaUwXkJUIw FTe2JPq3WSFudHizUoWbPLE2 WlF5IJQ1jWBigJ1ewMpnjnsy dG9w Oyc+J49csE1qMGK4JAL7hqtv KRAnwvMlGP32OJ62S0SsModi dGFibGU+ZTXuapQtnZvzRI7z YmFj z9zrx6OtJChsF5IqONVaMMdt Tyt4UNLzBLK6mCR7zM6aORWf MKkma0I2aEX7F9GgssBxbs6p b2xs NZTkKNhdB07dxZIvw6J5NNTu aQT1JVWqwLpfUfJevA93Pho+ MMZwuIent5TvMquyu5pcf6gj dGg9 RdYsJCBgosVeaAchAPS5c2Ku Se99S09xIUomTNVfARDdQKQm ZNEtlTwnml1ewW7fAm1+PGNv bCB3 vVT5rV9eCVPpBqB1GRxaO499 BmGzxHNyAecgx8mxw6ybhNu4 KkXcXYIhkxXikOcvWXJ7y6Kk Lz48 B65lGAmmFWGcPMPqYMOlHUSv iErcch2bpR8jUp2+QS0nx7oc eq91uX09xCY+QRQkVPY4lQgb PSdw ECXknW7fWCsyQeT2VQGuKlTc wM14tGAlMSixYi5lyWtdiQab UU8zUCEufasxz531PgLaj3ui IDEw gFMwFBsaHIJ0P89nd9N6HWDy EPJqPBK4bRD0yM2cvXbiwook bGVmdDsgdmVydGljYWwtYWxp Z246 IHRvcDsnPlBhdGllbnQgTmFt CJm6T0PcGqq7PUQziQcdKP8n dNJyOHfbCe6zbXjwyUxoDG2p NTBp anbnl232NvGzl1svRNWmjPJw OCwgZPB5O48pi3R0PAMeCWZm JQC2oGA8pO4afLuwbeoxyMWy dDsg wsImtNcjFWwbKEulU150RNEr gFadGuUmxsAiXLAweNK8MT77 MH55qKWqy6D4uKR5T1EvKSFo bmct yqwscVT7ZTPbVQPmnF63Un4x qLbuEz2dQMVuCCP2MSAhgVAz E6LqpU7tZuWoQWPcDSPlK2Ug eHQt EUwgF989USdoHaK3IWIuuoLz M8AqDXDspTvjYaM6f6G6Hg8F N0F9OM42IN35dSFco4Q4hED2 J3Bh WEFwdvaxcxqasHK2APApXAAz pZ66Yz0lmKnlPh2nABVsAQS8 DLRzhSGyM7KrgV0uCgRlUIEh MDAw D8GxyUQbGUbcF671MRllZhT1 XDFnykSpT7JaODHtzWqjDyC9 i5T9Ad7BVFp8LF05KC05gRVv c3R5 lFN5K3HlHBVcnpblkveuyLI2 GNCsKNHlxE46Kl0hiExoWx0y UFFzDLS5FOYehVKzV4LlpF7o OiAj HNArSOGsR5JzpWUxTMxaS349 DWeaSuW5PHLuqkFsB3ThQAPh yGocDlN0g5I5Hp8GUQPxPK62 IFR5 qWL6ZV84ND24Y7TvJpcsgSBg bGU+PHRhYmxlIHdpZHRoPScx IPFyJlTguQvxFV8dBu9bAKXj LWNv kBfzqFBxYgQyc8pvMNZbADvn VB6agAzeY7VwyKT1MWLwe8w7 Uj10Y46eU1EhkFX+PGNvbCB3 aWR0 dB7hVeUjFeZ0SChkA932PsBz mSQxCcdjp7hsf0pncQb4GiR3 SUGlylDkqOkcSCR5h0UtMt88 Y29s IHdpZHRoPSIxNSUiIHZhbGln qm1jjL3pWk3+EEAjvUI1tDP4 dU4zFkJwWqE8GGilK111UoRh cCIv Gblpm4yfs3lfjNa6IcPmTAHh inHakTyjECH8m0JdNs49C7Cw mZyxb9TdQgx1cc55dRYla5Y3 bGU9 H2AnFZKjepssuBCeiGruIQ2s RPEnniedGMSnnC4iAKEnY9j7 CxSgJhU5DSmiI0OeqdW0DYOs cHQg KXogJOP0A01hi4Y8PAOrWDRj NVC1eEZ5uC9oxAgtwuojyIPe lHrezgWmbYkzFIqwVCknU744 IHRv tCvzWUOwlX6mPAOgbKVvxXzv JU6wPOEwnispSmjNDpBIXUNM FCQCMKKPTO6MWLDBHV14TF47 dGQg x4D2rJB2B6JyWUSkfiwnvrrk tTA2OFUqWZIwtK80cPIcRTxk Id2zg5Y2k613WIEqUXLcmZ31 Zm9u mKbnZFFwuKJRnM9jtwnqd3zw drtlKzWtFEPxEUu0UPl6MNVw aVbcKpAkFDZ5NwN6UMN9nOBk bC1h jAxmcjonfI9qJhe+MTAvMTIv PFj5FZpxtCW+RBSbTKE2fFym RUtbRWCoqA6xTKGzJ3n5LdZa LjA1 KQajL3AqRDNfgmmkLs17xV0v YiKgXaL7MWahI0IymcJ5CNAx qRDoCAawJSA8R36cf8E9SGQb MDAw MBY2mWL0lK6rxKyjcyjegIOd hVyafgDohQlbVEthDHsvU322 CRRgmZrrZvcsTTovXKVmFS26 ZD48 aXIyz1J7cFU6S6ZnHGTlvhtl owkmmAR7PNDhLSQuvM31uHDl TRqeNs0tt7E1s618COCkTTDc aW47 Hb2ulJudXQKblIWXyW9mavjr m9gcrysiRiSzKTJfKPr2XKm6 ZOBtkMkoOqQjIGS6PxQ2JUV5 aWNh jA8qiWduhucxtK2zGxx+RkVN UTqPZO20KO88qEQgu5H0hNE1 E8VkOJLxqtosqvhuxZJ2ZRYv MDUw kU94wAOhDPnjJf4us5D1q283 FARsILNmbA41Fa1epBpmGITu jCEFuO8vvdhme9otqbjeTgTh MDAw VNg2VBe8JQIptQzhOqYlARV2 VrH3SOF6hXVaxM8xbBtelhpf jU4qAgt+TS9cmhuaczG7ZI30 ZD48 O2KbFddqxVEriFV+PHRhYmxl IHdpZHRoPScxMDAlJyBzdHls RD5bIz6qDRMsQDHqkRowqNGa OiBj v0beKIJkNXgnGG9tlQzuB3Bs xVN4VAGba9o0Gk10H73xO7Cu dXA+CCRcmKF9kNB9sS9vNaOl IiB2 BQifW395ViIhdWZwTsemy2os u3qswFq8ItFkFHBmwxSavFod FVU8g4ErKd89P77sEUywLXXz PSIy WONcRQKakMwonc6xoD7rRa9+ CXLhaYS7sGJ7gB3tQkWmAtC4 ZMjkS138FaXydAVlGppaT09m Z3Jv dXA+YODdOrm3WJZsoRvbGO9x sDRaPIjcWy8cIAM6TsKnSsYq RDcvE6JnYEGzbtqdidomrHB1 IDAu OZEhkP78Qv0dsHiqQj0cUPGp AZU1OTRduVLaJ0CojS7oFwKq CARaBBErH3ZpcAPpMUpjY380 IGxl GdZ3QYNjdhGeP7ZmKDIfgJpl EpT1w4X1Kx1NcDejoLNpKQ0g ZaHtBCr7Z9DeJcd0RCAdrKke ZT0n qRSpAOimSd0ycVbdxLmcNO6e ZQYoafkwc041WdXtl3kgRFKq rAZqPXuaATN9G14tz1Q6LKSa MDAw GDI9zOS9gG4knHghyujvyTMp kUxqxfOymPlpDNfqFLxaI374 NXMscGlcEeTYBbg3U0CuNqx6 ZCBz dLhzVF5poKPaHSfaFg1urZct zBifED4gWMYflcaox416ErTm r0stSVZdiFXmHNorTAN7C21r b3I6 FKEcCQVhISL7bDI9xK7akGef bjogbGVmdDsgdmVydGljYWwt UJghD140HWMdgVygVn3EUib6 L3Rk Ryx5BXRosHwtJW2uqROeGXnk Hl9skKmrwIhbTD9uXRFvjtbd i946DdPie0qsJXXfpKYsXLmk ZXM7 V09qx7D9NXLzDSOfRKW4hNZ6 fT8awJfyjwbitRMooKvjhqHs qSjyWKhmMAyiQ076KQUzzUrs PlBh eWVyOjwvdGQ+PE09lk11H1Ot SulpXbc2GQBsRTH4aAX9zH0w NRWxKBrlj1C5jEF3O3MhleXy ci1j b2x (more content not included)... [facility] CT PE Chest w/ Contraston CT PE [...] Scot Kaba MD 03/21/21 11:01 p Technologist: [facility] Consent Formson 03-22-2021 Consent Forms [id number] TIFF [facility] ED Clinical Summaryon 2020 ED Clinical Summary [facility] - Emergency Department [address] [place], [place] [id number] ED Clinical Summary PERSON INFORMATION Name: NU RIBEIRO Age: 71 Years Sex: FEMALE : 1950 MRN: Acct#: Visit Reason: Shortness of breath; SOB Arrival: 03/21/2021 19:58:39 Discharge: 03/21/2021 23:34:00 LOS: 000 03:36 Check In: 03/21/2021 19:58:39 Checkout:03/21/2021 23:34:00 Address: [facility] [address] [facility] [address] PCP: Nicholas SNELL, Laz Romero PROVIDER INFORMATION [...] distress, Well-ap (more content not included)... Normal [facility] ED Patient Summaryon 021 ED Patient Summary [facility] - Emergency Department [address] [place], [place] [id number] PATIENT DISCHARGE INSTRUCTIONS Patient Information Name: NU RIBEIRO Age: 71 Years Date of : 1950 Reason For Visit: Shortness of breath; SOB Arrival Time: 03/21/2021 19:58:39 Primary Care Physician: Laz Portillo MD Attending Physician: Marisol Leigh D.O. Comment: Visit Diagnosis: Diagnoses This Visit Asthma exacerbation (J45.901) Shortness of breath ([id number]) Prescription Information: If you have been given a prescription for narcotics, seek immediate medical attention if you have any difficulty breathing or any sudden status changes such as confusion and sleepiness. If you or anyone you know is experiencing suicidal thoughts, mental health, alcohol and/or drug addiction problems; contact the [facility] Recovery [facility] 03/12 Crisis Hotline -Text 4HZUW ya 915099. If you received any narcotics, sedation, or [...] With: Address: When: Laz Portillo [address] [place] [address] Business (1) Within 3 to 5 days Medication Information: The exam and treatment you received today in the [facility] Emergency Department were for an urgent problem and are not intended as complete care. It is important for you to follow up with a doctor, nurse practitioner, or physician?s certified medical technician assistant for ongoing care. If your symptoms [...] so we can reach you if necessary. [facility] Emergency Department has provided you with a complete list of medications post discharge. Please inform your supply chain consultant/provider of your visit and for further instruction on these medications. Any specific questions regarding your chronic medications and dosages should be discussed with your primary care physician(s) and/or pharmacist. New Medications [facility], [address] [place], [place] [id number], [phone] albuterol (Albuterol (Eqv-ProAir HFA) 90 mcg/inh inhalation [...] these instructions at home: Medicines ? Take rlxw-qlg-vvutxgk and prescription medicines only as told by your doctor. ? If you need to use an inhaler or nebulize (more content not included)... Normal [facility] Lactic Acidon 03-22-2021 Lactic Acid 11.7 mg/dL Normal 4.5-19.8 [facility] Comment on above: Performed By: #### 2 [id number] ####[facility] (DEFAULT)[address] [place] [address] .Auto Diff 1on 03-21-2021 Auto Chaves % 8 % Normal -12 [facility] Comment on above: Performed By: #### 5 [id number], [id number], [id number], [id number], [id number] ####[facility] (DEFAULT)[address] [place] [address]1975 Baso Abs# 0.0 x10 Normal 0.0-0.2 [facility] Comment on above: Performed By: #### 5 [id number], [id number], [id number], 1022389, 0280081 ####[facility] (DEFAULT)[address] [place] [address] Basophils/100 WBC (Bld) 0.4 % Normal 0.2-2.0 [facility] Comment on above: Performed By: #### 5 [id number], [id number], [id number], 9059628, 9122314 ####[facility] (DEFAULT)[address] [place] [address] Eos Abs# 0.5 x10 High 0.0-0.4 [facility] Comment on above: Performed By: #### 5 [id number], [id number], [id number], 7640723, 2586294 ####[facility] (DEFAULT)[address] [place] [address] 74164 Eosinophils/100 WBC (Bld) 7.0 % High 0.9-4.0 [facility] Comment on above: Performed By: #### 5 [id number], 97005274, [id number], 7731891, 4562074 ####[facility] (DEFAULT)[address] [place] [address] 67263 Lymph Abs# 2.3 x10 Normal 1.3-2.9 [facility] Comment on above: Performed By: #### 5 [id number], [id number], [id number], 8011645, 9122772 ####[facility] (DEFAULT)[address] [place] [address]365 Lymphocytes/100 WBC (Bld) 31 % Normal 14-48 [facility] Comment on above: Performed By: #### 5 [id number], 82717602, [id number], 4754639, 6458724 ####[facility] (DEFAULT)[address] [place] [address] Chaves Abs# 0.6 x10 Normal 0.0-0.8 [facility] Comment on above: Performed By: #### 5 [id number], 87414574, [id number], 2433595, 8140057 ####[facility] (DEFAULT)[address] [place] [address] 46875 Neut Abs# 4.0 x10 Normal 1.5-9.2 [facility] Comment on above: Performed By: #### 5 [id number], 33766972, 0874946761, 9404531, 6235519 ####[facility] (DEFAULT)[address] [place] [address] 82579 Neutrophils/100 WBC (Bld) 54 % Normal 44-88 [facility] Comment on above: Performed By: #### 5 [id number], 63727557, 4595570044, 8253210, 5030684 ####[facility] (DEFAULT)[address] [place] [address] CBC w/ Auto Diffon 1 Erythrocyte distribution width (RBC) [Ratio] 13.0 % Normal 11.5-15.0 [facility] Comment on above: Performed By: #### 5 [id number], 20308846, 7625147551, 7089930, 5393990 #### [facility] (DEFAULT) [address] [place] [address] Hematocrit (Bld) [Volume fraction] 38.1 % Normal 33.7-40.4 [facility] Comment on above: Performed By: #### 5 [id number], 70716945, 0384663363, 2276069, 0532282 #### [facility] (DEFAULT) [address] [place] [address] Hemoglobin (Bld) [Mass/Vol] 12.6 g/dL Normal 11.3-15.9 [facility] Comment on above: Performed By: #### 5 [id number], 95646208, 0475061843, 0698185, 5379261 #### [facility] (DEFAULT) [address] [place] [address] Instr WBC 7.5 x10 Invalid Interpretation Code [facility] Comment on above: Performed By: #### 5 [id number], 05542805, [id number], 8429367, 8064529 #### [facility] (DEFAULT) [address] [place] [address] Man Diff? Auto Normal [facility] Comment on above: Performed By: #### 5 [id number], 50881143, 1148107365, 5628746, 4864000 #### [facility] (DEFAULT) [address] [place] [address] MCH (RBC) [Entitic mass] 29 pg Normal 24-34 [facility] Comment on above: Performed By: #### 5 [id number], 81564682, 5556891750, 2242469, 9387762 #### [facility] (DEFAULT) [address] [place] [address] 99567 MCHC (RBC) [Mass/Vol] 33 g/dL Normal 26-37 [facility] Comment on above: Performed By: #### 5 [id number], 36781408, 9102850830, 8993521, 8788593 #### [facility] (DEFAULT) [address] [place] [address] 83885 MCV (RBC) [Entitic vol] 88 fL Normal 81-100 [facility] Comment on above: Performed By: #### 5 [id number], 96244129, 8316658082, 4574049, 1904664 #### [facility] (DEFAULT) [address] [place] [address] Platelet 225 x10 Normal 138-427 [facility] Comment on above: Performed By: #### 5 [id number], 37860808, 4925232795, 9697951, 3802304 #### [facility] (DEFAULT) [address] [place] [address] Platelet mean volume (Bld) [Entitic vol] 9.6 fL Normal 6.3-10.2 [facility] Comment on above: Performed By: #### 5 [id number], 03906262, 5515700452, 0714063, 1036779 #### [facility] (DEFAULT) [address] [place] [address] 21142 RBC 4.34 x10 Normal 3.70-5.30 [facility] Comment on above: Performed By: #### 5 [id number], 44126312, 8194737988, 8586178, 0672868 #### [facility] (DEFAULT) [address] [place] [address] 59330 WBC 7.5 x10 Normal 3.5-10.5 [facility] Comment on above: Performed By: #### 5 [id number], 60993303, 6378044449, 4332198, 4137169 #### [facility] (DEFAULT) [address] [place] [address] 89047 CMP Standardon 03-21-2021 eGFR Non AA >60 Invalid Interpretation Code [facility] Comment on above: Performed By: #### 5 [id number], 14699597, 1417048181, 7622432, 2826588 ####[facility] (DEFAULT)[address] [place] [address] 33608 eGFR AA >60 Invalid Interpretation Code [facility] Comment on above: Result Comment: Presentation Team Member feliz Kidney disease could be indicated at eGFRs of less than 60 ml/min/1.73m2. Kidney Failure is indicated at less than 15 ml/min/1.73m2 Performed By: #### 5 [id number], 78781747, 2987155780, 7934266, 0868317 ####[facility] (DEFAULT)[address] [place] [address] 30323 Albumin [Mass/Vol] 4.0 g/dL Normal 3.5-5.0 [facility] Comment on above: Performed By: #### 5 [id number], 81608810, 7884635871, 5842255, 5758388 ####[facility] (DEFAULT)[address] [place] [address] 59703 Albumin/Globulin [Mass ratio] 1.4 {ratio} Normal 1.4-2.6 [facility] Comment on above: Performed By: #### 5 [id number], 47621428, 8612827243, 6728471, 9009053 ####[facility] (DEFAULT)[address] [place] [address] 70232 Alk Phos 59 IU/L Normal 32-91 [facility] Comment on above: Performed By: #### 5 [id number], 35996132, 6183289310, 0749775, 0843072 ####[facility] (DEFAULT)[address] [place] [address] 50080 ALT [Catalytic activity/Vol] 15.0 U/L Normal 14.0-54.0 [facility] Comment on above: Performed By: #### 5 [id number], 12823169, 4115200655, 0652747, 9987462 ####[facility] (DEFAULT)[address] [place] [address] 93361 Anion gap [Moles/Vol] 11.0 mmol/L Normal 5.0-19.0 [facility] Comment on above: Performed By: #### 5 [id number], 02654364, 0976331962, 8691628, 4774808 ####[facility] (DEFAULT)[address] [place] [address] 13125 AST [Catalytic activity/Vol] 19 U/L Normal 15-41 [facility] Comment on above: Performed By: #### 5 [id number], 59677474, 6653235608, 6190908, 5247325 ####[facility] (DEFAULT)[address] [place] [address] 93873 Bili Total 0.8 mg/dL Normal 0.3-1.2 [facility] Comment on above: Performed By: #### 5 [id number], [id number], [id number], [id number], [id number] ####[facility] (DEFAULT)[address] [place] [address] 30625 Calcium [Mass/Vol] 9.5 mg/dL Normal 8.9-10.3 [facility] Comment on above: Performed By: #### 5 [id number], [id number], [id number], [id number], [id number] ####[facility] (DEFAULT)[address] [place] [address] 06226 Chloride [Moles/Vol] 105 mmol/L Normal 101-111 [facility] Comment on above: Performed By: #### 5 [id number], [id number], [id number], [id number], [id number] ####[facility] (DEFAULT)[address] [place] [address] 23747 CO2 [Moles/Vol] 29 mmol/L Normal 21-32 [facility] Comment on above: Performed By: #### 5 [id number], [id number], [id number], [id number], [id number] ####[facility] (DEFAULT)[address] [place] [address] 44614 Creatinine [Mass/Vol] 0.70 mg/dL Normal 0.60-1.30 [facility] Comment on above: Performed By: #### 5 [id number], [id number], [id number], [id number], [id number] ####[facility] (DEFAULT)[address] [place] [address] 17359 Globulin (S) [Mass/Vol] 2.9 g/dL Normal 1.5-4.3 [facility] Comment on above: Performed By: #### 5 [id number], [id number], [id number], [id number], [id number] ####[facility] (DEFAULT)[address] [place] [address] 68235 Glucose [Mass/Vol] 87.0 mg/dL Normal 74.0-118.0 [facility] Comment on above: Performed By: #### 5 [id number], [id number], [id number], [id number], [id number] ####[facility] (DEFAULT)[address] [place] [address] 22856 Osmolality 283 mOsm/L Invalid Interpretation Code [facility] Comment on above: Performed By: #### 5 [id number], [id number], [id number], [id number], 8500801 ####[facility] (DEFAULT)[address] [place] [address] 37897 Potassium [Moles/Vol] 3.8 mmol/L Normal 3.6-5.1 [facility] Comment on above: Performed By: #### 5 [id number], [id number], [id number], [id number], 8952836 ####[facility] (DEFAULT)[address] [place] [address] 27118 Protein [Mass/Vol] 6.9 g/dL Normal 6.5-8.1 [facility] Comment on above: Performed By: #### 5 [id number], [id number], [id number], [id number], [id number] ####[facility] (DEFAULT)[address] [place] [address] 06528 Sodium [Moles/Vol] 141.0 mmol/L Normal 136.0-144.0 [facility] Comment on above: Performed By: #### 5 [id number], [id number], [id number], 0792101, [id number] ####[facility] (DEFAULT)[address] [place] [address] Urea nitrogen [Mass/Vol] 19 mg/dL Normal 8-26 [facility] Comment on above: Performed By: #### 5 [id number], [id number], [id number], 4105108, 4852375 ####[facility] (DEFAULT)[address] [place] [address] Urea nitrogen/Creatinine [Mass ratio] 27.0 mg/mg High 4.6-16.2 [facility] Comment on above: Performed By: #### 5 [id number], [id number], [id number], 2484302, 1042241 ####[facility] (DEFAULT)[address] [place] [address] D-Dimeron 03-21-2021 D-Dimer 0.51 mg/L FEU High 0.19-0.50 [facility] Comment on above: Result Comment: Resu lts [...] Liver cirrhosis ? Performed By: #### 5 [id number], [id number], [id number], [id number], [id number] ####[facility] (DEFAULT)[address] [place] [address] 42983 ED Note - Physicianon 2020 ED Note [...] SARS-CoV-2 (COVID-19) PCR (more content not included)... [facility] ED Note-Nursingon 03-21-2021 ED Note-Nursing Pt states she feels better, less short of breath. Pt is currently resting on cart awaiting CT PE study. Normal [facility] ED Note-Nursing Pt arrives to ED peng [...] this time. Pt resting on cart. Normal [facility] TnI HSon 03-21-2021 Troponin I High Sensitivity 3 pg/mL Normal <=15 [facility] Comment on above: Result Comment: Male Baseline Delta 1Hr (Note pg/mL=ng/L) <20pg/mL 50-60% >20pg/mL 20% Female Baseline Delta 1Hr <15pg/mL 50-60% >15pg/mL 20% Other Baseline Delta 1Hr <18ng/mL 50-60% >18ng/mL 20% ([employer] Guidelines December 2017) Performed By: #### 5 [id number], [id number], [id number], [id number], [id number] ####[facility] (DEFAULT)[address] [place] [address] XR Chest 1 View Frontalon XR Chest [...] Carmendonny on 11-29-2020 Folate 8.9 ng/mL >4.8 [facility] Work Phone: No Panel InformationOrdered By: Raul Swan on 11-29-2020 [facility] Work Phone: Vitamin [id number] By: Raul Swan on 11-29-2020 Cobalamin (Vitamin B12) [Mass/Vol] 753 pg/mL 232 - 1245 pg/mL [facility] Work Phone: CBC Auto DifferentialOrdered By: Laz Portillo on 09-20-2020 Absolute Eos # 0.40 [facility] Work Phone: Absolute Immature Granulocyte NOT REPORTED [facility] Phone: Absolute Lymph # 1.60 [facility] Work Phone: Absolute Chaves # 0.[address] [facility] [address] [facility] Work Phone: Basophils (Bld) [#/Vol] 0.10 10*3/uL [facility] Work Phone: Basophils/100 WBC (Bld) 1 % 0 - 2 % [facility] Work Phone: Differential Type NOT REPORTED [facility] Work Phone: Eosinophils/100 WBC (Bld) 5 % High 0 - 4 % [facility] Work Phone: Hematocrit (Bld) [Volume fraction] 38.0 % 36 - 46 % [facility] Work Phone: Hemoglobin.gastrointe stinal spec 1 Ql (Stl) 12.1 g/dL 12.0 - 16.0 g/dL [facility] Work Phone: Immature Granulocytes NOT REPORTED 0 % [facility] Work Phone: Interpretation and review of laboratory results Abnormal [facility] Work Phone: Lymphocytes/100 WBC (Bld) 25 % 24 - 44 % [facility] Work Phone: MCH (RBC) [Entitic mass] 29.5 pg 26 - 34 pg [facility] Work Phone: MCHC (RBC) [Mass/Vol] 31.8 g/dL 31 - 3 7 g/dL [facility] Work Phone: MCV (RBC) [Entitic vol] 92.8 fL 80 - 100 fL [facility] Work Phone: Monocytes/100 WBC (Bld) 5 % 1 - 7 % [facility] Work Phone: NRBC Automated NOT REPORTED per 100 WBC [employer] Work Phone: Platelet distribution width (Bld) [Ratio] 14.1 % 11.5 - 14.9 % [facility] Work Phone: Platelet Estimate NOT REPORTED [facility] Work Phone: Platelet mean volume (Bld) [Entitic vol] 8.3 fL 6.0 - 12.0 fL [facility] Work Phone: Platelets (Bld) [#/Vol] 147 10*3/uL Low [facility] Phone: RBC (Bld) [#/Vol] 4.09 10*6/uL 4.0 - 5.2 m/uL [facility] Work Phone: RBC (Bld) [#/Vol] NOT REPORTED [facility] Work Phone: Segmented neutrophils/100 WBC (Bld) 64 % 36 - 66 % [facility] Work Phone: Segs Absolute 4.20 [employer] Work Phone: WBC (Bld) [#/Vol] 6.6 10*3/uL [facility] Work Phone: WBC (Bld) [#/Vol] NOT REPORTED [facility] Work Phone: Comprehensive Metabolic Pane lOrdered By: Laz Portillo on 09-20-2020 Albumin [Mass/Vol] 4.1 g/dL 3.5 - 5.2 g/dL [facility] Phone: Albumin/Globulin Ratio NOT REPORTED [facility] Phone: ALP (Bld) [Catalytic activity/Vol] 48 U/L 35 - 104 U/L [facility] Work Phone: ALT [Catalytic activity/Vol] 17 U/L 5 - 33 U/L [facility] Phone: Anion gap [Moles/Vol] 10 mmol/L 9 - 17 mmol/L [facility] Phone: AST [Catalytic activity/Vol] 25 U/L <32 [facility] Phone: Comment on above: SPECIMEN MODERATELY HEMOLYZED, RESULTS MAY BE ADVERSELY AFFECTED Bilirubin [Mass/Vol] 0.68 mg/dL 0.3 - 1 .2 mg/dL [facility] Phone: Calcium [Mass/Vol] 9.5 mg/dL 8.6 - 10. 4 mg/dL [facility] Phone: Chloride [Moles/Vol] 105 mmol/L 98 - 10 7 mmol/L [facility] Phone: CO2 [Moles/Vol] 24 mmol/L 20 - 31 mmol/L [facility] Work Phone: Creatinine [Mass/Vol] 0.6 mg/dL 0.50 - 0.90 mg/dL [facility] Phone: Free PSA/Total PSA [Mass fraction] 6.9 g/dL 6.4 - 8.3 g/dL [facility] Phone: GFR >60 >60 mL/min Lulu Phone: GFR Non- >60 >60 mL/min [facility] Phone: GFR/1.73 sq M.predicted MDRD (S/P/Bld) [Vol rate/Area] [facility] Phone: Comment on above: Average GFR for 70 o r more years old: 75 mL/min/1.73sq m Chronic Kidney Disease: <60 mL/min/1.73sq m Kidney failure: <15 mL/min/1.73sq m eGFR calculated using average adult body mass. Additional eGFR calculator available at: http://www.MyLife/multiple_crcl_2012.htm GFR/1.73 sq M.predicted MDRD (S/P/Bld) [Vol rate/Area] NOT REPORTED [facility] Phone: Glucose [Mass/Vol] 97 mg/dL 70 - 99 mg/dL [facility] Phone: Potassium [Moles/Vol] 5.6 mmol/L High 3.7 - 5.3 mmol/L [facility] Phone: Comment on above: SPECIMEN MODERATELY HEMOLYZED, RESULTS MAY BE ADVERSELY AFFECTED Sodium [Moles/Vol] 139 mmol/L 135 - 144 mmol/L [facility] Phone: Urea nitrogen (BldV) [Mass/Vol] 18 mg/dL 8 - 23 mg/dL [facility] Phone: Urea nitrogen/Creatinine (Bld) [Mass ratio] NOT REPORTED [facility] Phone: ECHO Complete 2D W Doppler W ColorOrdered By: Laz Portillo on 09-20-2020 [facility] Transthoracic Echocardiography Report (TTE) Patient Name QUINTIN Date of Study 09/20/2020 NU Ibarra Date of 1950 Gender Female Age 70 year(s) Race Room Number Height: 64.96 inch, 165 cm Corporate ID [id number] Weight: 160 pounds, 72.6 kg # Patient Acct [id number] BSA: 1.8 m^2 BMI: 26.66 kg/m^2 # MR # [id number] Production Ski Repairer Elaine Miles Interpreting Osmar Pryor Physician Fellow Referring Nurse Practitioner Interpreting Referring Physician LAZ PORTILLO, SUNG Fellow JANNETH* Type of Study TTE procedure:2D Echocardiogram, M-Mode, Doppler, Color Doppler. Procedure Date Date: 09/20/2020 Start: 07:43 AM Study Location: [facility] Technical Quality: Fair visualization Indications:Syncope. History / [...] velocity:0.07 m/s Lateral Wall E' velocity:0.10 m/s [facility] [employer] Work Phone: Tao, Mhpn Incoming Cardio Results From [facility] - 09/20/2020 10:17 AM EDT [facility] Transthoracic Echocardiography Report (TTE) Patient Name QUINTIN Date of Study 09/20/2020 [facility] Date of 1950 Gender Female Age 70 year(s) Race Room Number Height: 64.96 inch, 165 cm Corporate ID [id number] Weight: 160 pounds, 72.6 kg # Patient Acct [id number] BSA: 1.8 m^2 BMI: 26.66 kg/m^2 # MR # [id number] Production Ski Repairer AlpakarenbethElaine Interpreting Osmar Pryor Physician Fellow Referring Nurse Practitioner Interpreting Referring Physician SUNG AGUAYO Fellow JANNETH* Type of Study TTE procedure:2D Echocardiogram, M-Mode, Doppler, Color Doppler. Procedure Date Date: 09/20/2020 Start: 07:43 AM Study Location: [facility] Technical Quality: Fair visualization Indications:Syncope. History / [...] velocity:0.07 m/s Lateral Wall E' velocity:0.10 m/s [facility] Phone: Lipid PanelOrdered By: Iker Portillo on 09-20-2020 Cholesterol [Mass/Vol] 219 mg/dL High <200 [facility] Phone: Comment on above: Cholesterol Guidelines: <200 Desirable 200-240 Borderline >240 Undesirable Cholesterol in HDL [Mass/Vol] 61 mg/dL >40 [facility] Phone: Comment on above: HDL Guidelines: <40 Undesirable 40-59 Borderline >59 Desirable Cholesterol in LDL [Mass/Vol] 129 mg/dL 0 - 130 mg/dL [facility] Phone: Comment on above: LDL Guidelines: <100 Desirable 100-129 Near to/above Desirable 130-159 Borderline >159 Undesirable Direct (measured) LDL and calculated LDL are not interchangeable tests. Cholesterol in VLDL [Mass/Vol] NOT REPORTED 1 - 30 mg/dL [facility] Phone: Cholesterol.total/Cho lesterol in HDL [Mass ratio] 3.6 {ratio} <5 [facility] Phone: Triglyceride [Mass/Vol] 145 mg/dL <150 [facility] Phone: Comment on above: Triglyceride Guidelines: <150 Desirable 150-199 Borderline 200-499 High >499 Very high Based on AHA Guidelines for fasting triglyceride, February 2012. No Panel InformationOrdered By: Laz Portillo on 09-20-2020 Interpretation and review of laboratory results Abnormal [facility] Phone: TSH without ReflexOrdered By : Laz Portillo on 09-20-2020 TSH Qn 1.84 m[IU]/L [facility] Phone: VL Upper Extremity Venous Du plex LeftOrdered By: Laz Portillo on 09-20-2020 [facility], [employer] Incoming Cardio Results From [facility] - 09/20/2020 11:37 PM EDT [facility] Vascular Upper Extremities Veins Procedure Patient Name QUINTIN Date of Study 09/20/2020 NU Ibarra Date of 1950 Gender Female Age 70 year(s) Race Room Number Corporate ID # [id number] Patient MR # [id number] Production Ski Repairer Roberto Henning Interpreting Physician Dread Hameed Referring [...] ! ! + --+ --+ --- + [facility] Work Phone: Coding Summaryon 08-24-2020 Coding Summary [employer]Base 64 ApunvzbiIEb7gEn+PGhlYWQ+ FX6YBOBdB87ubYZetX0ZD9lX VB6LSVUVLLFTXG6JTE6qvMY4 YNuiF9PteuNn DvifoNYqWV12GCz5LGH7dCno QMcpyG1wrYPjO3t1UyZsVS50 lC68PRycEFSyAhS1RqPirsnh bWFy Z1aaNjWgkXJeLzh+PHRhYmxl IHdpZHRoPScxMDAlJyBzdHls MH8uXv7bGYYiPULkvGplzGIs OiBj b3dwTPKvHHikDJ5bbRrfT4Ys oNM7MGOdr9v7Tj23sSH+PHRk IWK9qDtzPFagm884SaBjm4pw IDM3 tZLgGBdzKSE4I56wq0G0QKFc XXHqEXB7oRB2rC9dlGfdigep I3WurKVeNeX2DGS6rRTqlA1o bGln lsvkeZ7mGpi+D96BLS3PCPHP TG1UZwk2X2SvFlttkFS+PC90 ZCMtCT22qNVnjNCyw1npbDf1 JzEw FVRwGZX9gRupRMvbt1DwPHGy K14aiYZxq8K4FYTecRmczPDt KyIleSH1cN0zIAahuoilt0qg dzsn Tzxui2cqtj12nQ17X61pTOmo TXJbGBX1WGQvKQUzcLcozz5q xB2mOj8+OKgcq9jia4wxdPr2 IjIw JILungBxaQitVAW3r8SeTu30 L2LlgUqhf7OfUlj6uh20eXLp g0B4aMH5RQvuVBXjpF9aWQxh ZnQ6 ZRNmWsJobX05aAMzZEglBo5i hJexxAeiBS4nBGCphikjUBYh wW8rKUWudMMmgPydVE4aADRy bjtm p316RmAdJUL6CPVzrEUhY9Xw wD2zNoSnPXLzIEZbD8FmeTAs FMbtX637SHtuXeN9CDMoyeKh Y2Fs QHKavKolElP1q8K4Eu3Db1Lr qeiiMMM5YVaxVGX5IfK9LnGm YmG2H0AbAyd5XRDrlIcfCU1y J3Bh OMCqsiaabvnflCR9RVUmXPEf dQ03sCGsARpbBg2iv7Z8v445 KAVpVKEzrK95Ao3cmNwzNDAd dCBU sZ0kqdpmy8ipntcvFbGjWFLf YJb4GRr8ITUbhDxwCyTrBPX1 JzK4TYZ8yULouU4drMlpwppl dG9w Oyc+B25omU7dWCL6IXG1xfrq CWSplbYjWC00KO04J3WdIwzx dGFibGU+XLKyhzGjnVfwSL3l YmFj p5ikc8VuGHmzK6UoOROoCBex Nlt7OLDqVTD6fLU6kG8jKZMa KXajh9V1mDL4L3LgvtIbwo5y b2xs BDXiFMqhQ06niKQtf1D2JOSd kTE3TSIraCyvEvEttZ65Juv+ IJBkqBwxm2AjZjpzu0ndy0wh dGg9 LsWvGJHczzFtzCqjBBG9s1Yl Pq06B43fWCcxFHCiQZZlPBYp ODAhcZmdur9qiC4fGf5+PGNv bCB3 mBU2jY8eSDGrWhN5CHkcW885 JkZwrJYyUjusd0bif0acxOp4 XmFdYKSlpnEfcNktFYV5d6Cr Lz48 E53yNYlcISPsUSPjYNXyQFZw aWvuar6fvT1kGp7+IX0om1hp po31iR18xPP+NOOaZPD2mQic PSdw VUKhlD4lAHcnKgT6KZEaKcRe lX87kUAuMGtuQt5whQbjgTtf LZ0hOVYgmvsdj416NdOui2rp IDEw sWIeSEmfXSC5B57ta4N7XVZr GQVxJEH4yFE6vK4rdAtzixbd bGVmdDsgdmVydGljYWwtYWxp Z246 IHRvcDsnPlBhdGllbnQgTmFt KOm3B1JpGpn6UEMqkGhvPI9l qILiXHwfLd1btGcvbIuwGQ4v NTBp qxqsz162PvYlf0ldVHOhgLWv RWnsCST3E36hx4T1FURtEMZp KNM1eVU1nO4dqHoeibpqwEKi dDsg utIoaNviVWfuGUfkZ708DURt hRfyRhMasnDzTZVjdXY2UN80 DO16nFJlz3E2mHR0X8ViGWUm bmct xpamzPN4SFWmHMJfuA32Pa4t qQpgJa1kMOZbMCF9ISBinWGn S8InmY8jCzCrFCPuHRGdE0Zu eHQt YBbsL041CZmgTuQ9FPUctxOw B4SwNZSogCmaAtT8p2W3Wk6Y Q7J2EK09MK67fNRhv9Y2ePZ0 J3Bh ERZcviinwowzbYI5FLWpASNc vY05Tx8pgKhjMq0hUYKrDHZ7 YBVgjZOeT2RvaU5dFmHsHKBs MDAw A0ZrsQEpCCcdE384LVziWsM8 CRZxjiGmY8DoOPQliBkmZqP3 c3A4Nx3RVHw7BY39DC05iVLc c3R5 hZO1A8GbNEJhhxhcanpgjNA1 CYKcQUPueC71Ve4jgAiiPr4a TXGnANC3KODjkEYhH7TdbT3a OiAj IGAjBNHuE1WxpJTvMXqmW098 NOlrWcG3HPIajyNiY8DkQRPa uCgfOnZ8p6R8Jg4SJBTcOR13 IFR5 pCI7QG00XL03J7MnMjtkvBLs bGU+PHRhYmxlIHdpZHRoPScx BHJrWoCjwOppGK1sEs8yHBIz LWNv iKesbVGxFtHct1nfHLGuSCgm KX0azNtxP8PriZH2PVAcd3i0 Ll49Q46kI3KpcIM+PGNvbCB3 aWR0 vF5uHrVaUlU9CNmjX814KfWq hNZhIzqmj0hhw1gvpNk1ZcI5 EGMiagKmqVafRKH7p2NkTo10 Y29s IHdpZHRoPSIxNSUiIHZhbGln bh2sdS5jTu6+CNQysUV3iFI2 sC7oFvLzTmS6QJdcI632QcHp cCIv Knydn3inr4umnZt8FeItEMDr haBanZskTGX0b5JoOd56U0Kw sAcdp0XuPyx0lu66yYUgc1D2 bGU9 R5RdEZUdsoizuIVewBduHK0p KXUeqangWEHtoD7yKPGlQ2w0 RnHcQwU4XGloE3CxmgM3ELBt cHQg QVzuCAC9G59ib2B4RXAqCUUe WGH0tBB4oY6ykVcktwnmnGKe pHccfyRzhIlmSMxjHWseD978 IHRv lAouLIAdtW0vLHCiyGDvcDlx ZN8tXIWeiakgSzwDGaYJPIQG YLBGGHXVQR0QNDDCXP40YE13 dGQg e0K5wEI8W8SpANQpluuuznzi zQW7FWSbPNJnxJ03bRQpEUyk It9me3X7m306JHAiDZNxsI34 Zm9u qBliQHVnfBVQvF8ajemdu4zo bhckGgGlVMVgUJc8ISs0IXFx xGcuXjEoDJK7VeH9NZH8jAXc bC1h iYbxaizobG0yIdg+MTAvMTIv TDg1QHfgjPM+KDRjEXA8sJan VIveIIZenP1vIRNaV6u9ZmIh LjA1 EJljO6HlZYWyteyjWv92gF7c PmGiKcM9IJblU4YqetJ0FHGe nNCzISzgRVZ7J46we0K4DOSm MDAw JLH0oZH0qO6maRpsfreaeZXo qEyeofRamEyoDSpxHKyiM108 CKVevXafFnstDGefZBJfDI20 ZD48 cBEyo4R2iND7J0CyCOXqrcot hnhcdXQ2TSYyXSTzaD53qGCe YTqoCp2rw8F9p119SEOwBENi aW47 Cg2pjZrlQVZxpZCRqH1kgast t2ukwrpcFoZfQUMqWUr0KQc6 OREabPpwXnVrIKH9BuV0WDB0 aWNh hR1nuQarbxgcpJ4oYbh+RkVN GYkMVJ44LK18uKCsw8F9aZC5 W1NxZNWvgmlrgcldvFS6LIDn MDUw fX42rSHxULleUg0ld8K0b489 SKMyBUWrdM39Rg5fiEmpBVLm dGVUmW9chiorz7buaonaTuFz MDAw LGa1DMv3FHLapRxxGsZvZUB9 XeX1BYP5cDUbeY9rvQtrqfwn yF9zOru+GpZftECvjA0iIH24 dHBh pVvcppZ8I7EzJjeysAL+PC90 SNGcXY28kRSmfQXay5cbuHu1 NiVqFHPrOKM0cBegEUioj3My ZXIt A99euYLqv4J8EVNppPeslOMo UuOasWH1kO6yGQkibaqlr9do ofbwTskur8vcqb85iM34S22l IHdp ACDtHDDjNRJnZEGvbHpbsg4k fO7bEl0+WCIzqSS0eBB7nG2s PpReQmR9BJdyN674PeWyrIRk Pjxj o7uin0bhrGr9GaUwCUYprgNw uMscDKD0y7IwNe14I59gQSmp UTMgVBZyNGKiICVpjXwduk5j dG9w Ii8+LM9cg4agbz36eG99nQC+ YCAlYTZ5tEpfODlgZTQfiE3e IXbdUrH6CWJmDcMrrO91fXLu ZGlu Lb7vaBsyzTarQA4eGLAxnkhn q003KlVnz7heOIAfyKLxVZgg BCW0Q95gm8W2HYGuKNCzBAL7 dGV4 tG3hoZzguwijzNLygJwaytPr hXjjEEndFYbzG212CSCioGoz OwEhpMCpJ1sxdjPVQM3mInnf dGQ+ LEMuMHO6aXpoAHheUEJzsI3b LMDlM4l1HdQkYiS7NCywU1Hu xoM7YGGteHGoTJSgwYXPvQ3z cztj u7dpepokPuNxCGCvBVs1NCl6 SNItvVqcMlEyLHE7ByW0BEG3 aSLibB7ubHitdojgwQ7tZfh+ RklO OjwvdGQ+CLReGND5cPkbETbf UBJraW1wYLHsJ6o0XgTpYeS3 CNvgT0UmovP4QSJffTEmHRFs dCBU sB2oxmtjt1tabouoGnIoXSDn JJz1TBu5NBWhtRxwHkMeTBS6 ZlV5YEC0lLPaeV4jhFauyptu dG9w Oyc+TVJOOjwvdGQ+PHRkIHN0 cTarJCgbSDEwfP2nKVIxC9o8 UyUmKxO2ILfcS9SjsjX2BABq bGQg JVRuaVPPlF5ptktob8qtumhy XsFkCSDxJBy7QYc3MTTlyFfu CdEiSMU0NsY8HHJ0vYJbtQ8y bGln cpsknM4oUxn+YJC2ZEW2LQ58 RX57P8PoQqhtlGKyrAS+PHRh YmxlIHdpZHRoPScxMDAlJyBz dHls ZT0 (more content not included)... [facility] Coding Summaryon 05-30-2020 Coding Summary CODING DATE: 021 [facility] STATUS: Home PAYOR: Medicare ADMIT DX: REASON [...] Sydney Franklin Date Saved: 05/30/2020 03:43 pm [facility] Physical Therapy Noteon 05-13 Physical Therapy Note [id number] TIFF [facility] ED Clinical Summaryon 2020 ED Clinical Summary [facility] ? Urgent Care [address] [place], [place] [id number] Clinical Summary PERSON INFORMATION Name: NU RIBEIRO Age: 70 Years Sex: FEMALE : 1950 MRN: Acct#: Visit Reason: UC - Dysuria; PAINFUL URINATION Arrival: 05/20/2020 17:32:27 Discharge: 05/20/2020 18:13:00 LOS: 000 00:41 Check In: 05/20/2020 17:32:27 Checkout: 05/20/2020 18:13:00 Address: [address] [place] [address] PCP: Laz Portillo MD PROVIDER INFORMATION Provider [...] EDUCATION INFORMATION Instructions: Urinary Tract Infection, Adult, Nkxy-ma-Oudw Follow-Up: With: Address: When: Laz Portillo [address] [place] [address] [facility] (1) Comments: Begin on the bactrim this is your antibiotic, take as written until gone Drink plenty of water, stay hydrated Follow-up with your primary care provider in 5-7 days for reevaluation DIAGNOSIS: UTI (urinary tract infection) Patient Understands: Yes - Patient/family/caregiver verbalizes understanding of instructions given Comment: Normal [facility] ED Patient Summaryon 021 ED Patient Summary [facility] ? Urgent Care [address] [place], [place] [id number] PATIENT DISCHARGE INSTRUCTIONS Patient Information Name: NU RIBEIRO Age: 70 Years Date of : 1950 Reason For Visit: UC - Dysuria; PAINFUL URINATION Arrival Time: 05/20/2020 17:32:27 Primary Care Physician: Laz Portillo MD Attending Physician: Spasic PA, Kristopher Comment: Patient Education With: Address: When: Laz Portillo [address] [place] [address] [facility] (1) Comments: Begin on the bactrim this [...] these instructions at home: Medicines ? Take dtca-did-bgmyugl and prescription medicines only as told by [...] Reviewed: 11/06/2018 [employer] Patient Education ? 2020 [employer] Medication Information: The exam and treatment you received today in the [facility] Emergency Department were for an urgent problem and are not intended as complete care. It is important for you to follow up with a doctor, nurse practitioner (more content not included)... [facility] UA [id number] 05-20-2020 UA Bacteria None [facility] Comment on above: Order Comment: Urina lysis Microscopic order added on by [employer] system. Performed By: #### 5 [id number], [id number] ####[facility] (DEFAULT)[address] [place] [address] UA RBC 0-2 [facility] Comment on above: Order Comment: Urina lysis Microscopic order added on by [employer] system. Performed By: #### 5 [id number] ####[facility] (DEFAULT)[address] [place] [address] UA Squam Epi Rare [facility] Comment on above: Order Comment: Urina lysis Microscopic order added on by [employer] system. Performed By: #### 5 [id number], [id number] ####[facility] (DEFAULT)[address] [place] [address] UA WBC 0-2 [facility] Comment on above: Order Comment: Urina lysis Microscopic order added on by [employer] system. Performed By: #### 5 [id number], [id number] ####[facility] (DEFAULT)[address] [place] [address] UA w Culture if Ind Standard on 05-20-2020 Breakpoint UA [facility] Comment on above: Performed By: #### 5 [id number], [id number] ####[facility] (DEFAULT)[address] [place] [address] Color (U) [place] [facility] Comment on above: Result Comment: Test cannot be satisfactorily determined due to intensely colored urine. Performed By: #### 5 [id number], [id number] ####[facility] (DEFAULT)[address] [place] [address] Culture? Not Indicated Invalid Interpretation Code [facility] Comment on above: Performed By: #### 5 [id number], [id number] ####[facility] (DEFAULT)[address] [place] [address] Glucose (U) [Mass/Vol] 250 mg/dL Normal [facility] Comment on above: Performed By: #### 5 [id number], [id number] ####[facility] (DEFAULT)[address] [place] [address] Ketones Ql (U) TRACE Normal [facility] Comment on above: Performed By: #### 5 [id number], [id number] ####[facility] (DEFAULT)[address] [place] [address] Micro? Indicated Normal [facility] Comment on above: Performed By: #### 5 [id number], [id number] ####[facility] (DEFAULT)[address] [place] [address] UA Bilirubin Negative Normal [facility] Comment on above: Performed By: #### 5 [id number], [id number] ####[facility] (DEFAULT)[address] [place] [address] UA Blood Negative Normal NEGATIVE [facility] Comment on above: Performed By: #### 5 [id number], [id number] ####[facility] (DEFAULT)[address] [place] [address] UA Clarity CLEAR Normal CLEAR [facility] Comment on above: Performed By: #### 5 [id number], [id number] ####[facility] (DEFAULT)[address] [place] [address] UA Leuk Est Negative Normal NEGATIVE [facility] Comment on above: Performed By: #### 5 [id number], [id number] ####[facility] (DEFAULT)[address] [place] [address] UA Nitrite Positive Abnormal NEGATIVE [facility] Comment on above: Performed By: #### 5 [id number], [id number] ####[facility] (DEFAULT)[address] [place] [address] UA pH 5.0 Normal 5-8 [facility] Comment on above: Performed By: #### 5 [id number], [id number] ####[facility] [facility] [place] [address] UA Protein 100 Abnormal NEGATIVE [facility] Comment on above: Performed By: #### 5 [id number], [id number] ####[facility] (DEFAULT)[address] [place] [address] UA Spec Grav 1.020 Normal 1.001-1.035 [facility] Comment on above: Performed By: #### [id number] ####[facility] (DEFAULT)[address] [place] [address] UA Urobilinogen >=8.0 Invalid Interpretation Code 0.2-1.0 [facility] Comment on above: Performed By: #### 5 [id number], [id number] ####[facility] (DEFAULT)[address] [place] [address]27 Urine Source Clean Catch Normal [facility] Comment on above: Performed By: #### 5 [id number], [id number] ####[facility] (DEFAULT)[address] [place] [address] Urgent Care Note- Provideron 05-20-2020 Urgent Care [...] Lab Flowsheet 05/20/2020 17:35 EST UA Color [place] UA Clarity CLEAR UA Glucose 250 mg/dL [...] cells patient treated with Bactrim for UTI. [place] color and glucose present likely due to Azo treatment. Pt is not diabetic. Home care instructions provided, pt stated understanding of home care instructions. Follow-up with primary care provider in 5-7 days sooner if worse. Impression and Plan Diagnosis UTI (urinary tract infection) ([id number] N39.0, Discharge, Medical) Plan Prescriptions: Launch prescriptions Pharmacy: Bactrim DS 800 mg-160 mg oral tablet (Prescribe): 1 tab(s), PO, BID, for 3 day(s), 6 tab(s), 0 Refill(s). Patient was given the following educational materials: Urinary Tract Infection, Adult, Sorw-ff-Oksv, Urinary Tract Infection, Adult, Dtef-sy-Bizc. Follow up with: Laz Duran on the [...] prescription, Patient indicated understanding of instructions. Normal [facility] Recordon 021 Urgent Care Record [facility] ? Urgent Care [address] [place] [address] PATIENT DISCHARGE INSTRUCTIONS Patient Information Name: NU RIBEIRO Age: 70 Years Date of : 1950 Reason For Visit: UC - Dysuria; PAINFUL URINATION Arrival Time: 05/20/2020 17:32:27 Primary Care Physician: Nicholas SNELL, Laz Romero Attending Physician: Kristopher Conway Comment: Visit Diagnosis: Diagnoses This Visit UC - Dysuria ([id number]) UTI (urinary tract infection) (N39.0) If you received any narcotics, sedation, or any other medication that causes drowsiness for the next 24 hours, unless otherwise directed: ? Do not drive a car. ? Do not operate machinery such as power tools, [employer] moDrDoctors, drills, sewing machines, or stoves ? Avoid alcoholic beverages and drugs for allergies, nerves, or sleep ? Do not make important personal or business decisions or sign any legal documents With: Address: When: Laz Portillo [address] [place] [address] Business (1) Comments: Begin on the bactrim this is your antibiotic, take as written until gone Drink plenty of water, stay hydrated Follow-up with your primary care provider in 5-7 days for reevaluation Medication Information: The exam and treatment you received today in the [facility] were for an urgent problem and are not intended as complete care. It is important for you to follow up with a doctor, nurse practitioner, or physician?s certified medical technician assistant for ongoing care. If your symptoms [...] so we can reach you if necessary. [facility] has provided you with a complete list of medications post discharge. Please inform your supply chain consultant/provider of your visit and for further instruction on these medications. Any specific questions regarding your chronic medications and dosages should be discussed with your primary care physician(s) and/or pharmacist. New Medications [facility], [address] [place], [place] [id number], [phone] sulfamethoxazole-trimeth oprim (Bactrim DS 800 mg-160 mg [...] take antibiotic medi (more content not included)... [facility] Provider Orderson 04-04-2020 Provider Orders [id number] 1022 [id number] TIFF [facility] CBC Auto Differentialon 09-2 Basophils (Bld) [#/Vol] 0.10 10*3/uL [place] Basophils/100 WBC (Bld) 1 % 0 - 2 % [place] Differential Type NOT REPORTED [place] Eosinophils (Bld) [#/Vol] 0.40 10*3/uL [place] Eosinophils/100 WBC (Bld) 7 % High 0 - 4 % [place] Erythrocyte distribution width (RBC) [Ratio] 12.7 % 11.5 - 14.9 % [place] Hematocrit (Bld) [Volume fraction] 38.4 % 36 - 46 % [place] Hemoglobin (Bld) [Mass/Vol] 13.3 g/dL 12 - 16 g/dL [place] Interpretation and review of laboratory results Abnormal [place] Lymphocytes (Bld) [#/Vol] 2.00 10*3/uL [place] Lymphocytes/100 WBC (Bld) 34 % 24 - 44 % [place] MCH (RBC) [Entitic mass] 30.6 pg 26 - 34 pg [place] MCHC (RBC) [Mass/Vol] 34.6 g/dL 31 - 3 7 g/dL [place] MCV (RBC) [Entitic vol] 88.4 fL 80 - 100 fL [place] Monocytes (Bld) [#/Vol] 0.40 10*3/uL [place] Monocytes/100 WBC (Bld) 7 % 1 - 7 % [place] Platelet mean volume (Bld) [Entitic vol] 7.3 fL 6 - 12 fL [place] Platelets (Bld) [#/Vol] 226 10*3/uL [place] Platelets (Bld) [#/Vol] NOT REPORTED [place] RBC (Bld) [#/Vol] 4.34 10*6/uL 4 - 5.2 m/uL [place] RBC morphology finding Nom (Bld) NOT REPORTED [place] Segmented neutrophils/100 WBC (Bld) 51 % 36 - 66 % [place] Segs Absolute 3.00 [place] WBC (Bld) [#/Vol] NOT REPORTED per 100 WBC [place] WBC (Bld) [#/Vol] 5.9 10*3/uL [place] WBC Morphology NOT REPORTED [place] Comprehensive Metabolic Pane justino 02-03-2020 Albumin [Mass/Vol] 4.3 g/dL 3.5 - 5.2 g/dL [place] Albumin/Globulin [Mass ratio] NOT REPORTED [place] ALP [Catalytic activity/Vol] 54 U/L 35 - 104 U/L [place] ALT [Catalytic activity/Vol] 14 U/L 5 - 33 U/L [place] Anion gap [Moles/Vol] 9 mmol/L 9 - 17 mmol/L [place] AST [Catalytic activity/Vol] 15 U/L <32 [place] Bilirubin Ql (U) 1.20 mg/dL 0.3 - 1.2 mg/dL [place] Bun/Cre Ratio NOT REPORTED [place] Calcium [Mass/Vol] 10.1 mg/dL 8.6 - 10. 4 mg/dL [place] Chloride [Moles/Vol] 102 mmol/L 98 - 10 7 mmol/L [place] CO2 [Moles/Vol] 27 mmol/L 20 - 31 mmol/L [place] Creatinine [Mass/Vol] 0.7 mg/dL 0.5 - 0.9 mg/dL [place] GFR >60 >60 mL/min [place] GFR Non- >60 >60 mL/min [place] GFR/1.73 sq M predicted among non-blacks MDRD (S/P/Bld) [Vol rate/Area] [place] Comment on above: Average GFR for 70 o r more years old: 75 mL/min/1.73sq m Chronic Kidney Disease: <60 mL/min/1.73sq m Kidney failure: <15 mL/min/1.73sq m eGFR calculated using average adult body mass. Additional eGFR calculator available at: http://www.MyLife/multiple_crcl_2012.htm GFR/1.73 sq M predicted among non-blacks MDRD (S/P/Bld) [Vol rate/Area] NOT REPORTED [place] Glucose [Mass/Vol] 88 mg/dL 70 - 99 mg/dL [place] Potassium [Moles/Vol] 4.7 mmol/L 3.7 - 5.3 mmol/L [place] Protein [Mass/Vol] 7.1 g/dL 6.4 - 8.3 g/dL [place] Sodium [Moles/Vol] 138 mmol/L 135 - 144 mmol/L [place] Urea nitrogen [Mass/Vol] 21 mg/dL 8 - 23 mg/dL [place] Otheron 02-03-2020 Immature granulocytes (Bld) [#/Vol] NOT REPORTED [place] TSH without Reflexon 020 TSH Qn 1.69 m[IU]/L [place] VL Upper Extremity Venous Du plex Lefton 02-03-2020 [facility] Vascular Upper Extremities Veins Procedure Patient Name KINSTLER Date of Study 02/03/2020 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 ! 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 ! + --+ --+ --- + [facility] X[facility] SHOULDER LEFT (MIN 2 VIEW S)on 11-12-2019 1. No acute bony or joint abnormality 2. 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 EXAMINATION: THREE X RAY VIEWS OF [...] fractures or destructive bony abnormalities are identified. 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 NGUYEN DIGITAL DIAGNOSTIC W OR WO [...] to the patient regarding the results. [employer] recommends annual mammograms for women 40 years and older. [place] EXAMINATION: DIAGNOS TIC DIGITAL LEFT BREAST [...] for a bilateral mammogram in January 2020. [place] Tao, Mhpn Incoming Radiant Results From [employer]s - 07/31/2019 6:05 PM EDT EXAMINATION: DIAGNOSTIC [...] to the patient regarding the results. [employer] recommends annual mammograms for women 40 years and older. [facility]olCED[facility]ITAL[facility] Otheron 01-30-2019 No evidence of malignancy. Post [...] sent to the patient regarding the results. [facility]ol[facility]ED[facility]ITAL[facility] EXAMINATION: BILATER AL DIGITAL DIAGNOSTIC MAMMOGRAM; TARGETED [...] prior study performed in August reportedly aspirated. [facility] Tao, Mhpn Incoming Radiant Results From [employer] - 01/30/2019 4:33 PM EDT EXAMINATION: BILATERAL [...] sent to the patient regarding the results. [facility] NGUYEN STEREO BREAST BX W LOC [...] by:Lizbeth Lees MD12/30/17Edited Result - FINAL Normal [facility] MAMMOGRAM POST BX CLIP PLACE MADYSON Thomas [...] by:Lizbeth Lees MD12/30/17Edited Result - FINAL Normal [facility] Surgical Pathologyon 018 Surgical Pathology (NOTE)[id number] LABORATORIESCONSULTING PATHOLOGISTS CORPORATIONANATOMIC [id number] [place] [address] [id number] Fax: SURGICAL PATHOLOGY CONSULTATIONPatient Name: [facility] Rec: [id number] Number: [id number]: 12/26/2017Received: 12/26/2017Reported: 12/27/2017 12:48-- Diagnosis --LEFT BREAST, [...] pathologist (MILENA) who agrees withthe diagnosis. Normal [facility] Comment on above: Performed By: #### P PPVS ####[address] [address] Vital Signs Date Time Vital Sign Value Performing Clinician Facility 01-11-2023 14:27-0400 Body height 161.3 cm Allyssa Lopez APRN.ORGANIZATIONAL EFFECTIVENESS CONSULTANT Work Phone: [facility] 01-11-2023 14:27-0400 Body temperature 97.7 [degF] Allyssa Lopez CREDIT COORDINATOR.ORGANIZATIONAL EFFECTIVENESS CONSULTANT Work Phone: [facility] 01-11-2023 14:27-0400 Body weight 73.75 kg Allyssa Lopez APRN.ORGANIZATIONAL EFFECTIVENESS CONSULTANT Work Phone: [facility] 01-11-2023 14:27-0400 Diastolic blood pressure 59 mm[Hg] Allyssa Lopez CREDIT COORDINATOR.ORGANIZATIONAL EFFECTIVENESS CONSULTANT Work Phone: [facility] 01-11-2023 14:27-0400 Heart rate 75 /min Allyssa Lopez CREDIT COORDINATOR.ORGANIZATIONAL EFFECTIVENESS CONSULTANT Work Phone: [facility] 01-11-2023 14:27-0400 Respiratory rate 16 /min Allyssa Lopez CREDIT COORDINATOR.ORGANIZATIONAL EFFECTIVENESS CONSULTANT Work Phone: [facility] 01-11-2023 14:27-0400 SaO2% (BldA) [Mass fraction] 98 % Allyssa Lopez CREDIT COORDINATOR.ORGANIZATIONAL EFFECTIVENESS CONSULTANT Work Phone: [facility] 01-11-2023 14:27-0400 Systolic blood pressure 125 mm[Hg] Allyssa Lopez CREDIT COORDINATOR.ORGANIZATIONAL EFFECTIVENESS CONSULTANT Work Phone: [facility] 08-16-2022 14:40-0400 Body temperature 97.3 [degF] Josesito Basurto MD Work Phone: [facility] [employer] 08-16-2022 14:40-0400 Diastolic blood pressure 74 mm[Hg] Josesito Basurto MD Work Phone: [employer] 08-16-2022 14:40-0400 Heart rate 55 /min Josesito Basurto MD Work Phone: [employer] 08-16-2022 14:40-0400 Respiratory rate 12 /min Josesito Basurto MD Work Phone: [facility] [employer] 08-16-2022 14:40-0400 SaO2% (BldA) [Mass fraction] 98 % Josesito Basurto MD Work Phone: [employer] 08-16-2022 14:40-0400 Systolic blood pressure 169 mm[Hg] Josesito Basurto MD Work Phone: [employer] 08-16-2022 11:25-0400 Body height 165.1 cm Josesito Basurto MD Work Phone: [employer] 08-16-2022 11:25-0400 Body mass index (BMI) [Ratio] 27.46 kg/m2 Josesito Basurto MD Work Phone: [employer] 08-16-2022 11:25-0400 Body weight 74.84 kg Josesito Basurto MD Work Phone: [employer] 07-12-2022 14:45-0500 Diastolic blood pressure 66 mm[Hg] Josesito Basurto MD Work Phone: [employer] 07-12-2022 14:45-0500 Respiratory rate 17 /min Josesito Basurto MD Work Phone: [employer] 07-12-2022 14:45-0500 SaO2% (BldA) [Mass fraction] 95 % Josesito Basurto MD Work Phone: [employer] 07-12-2022 14:45-0500 Systolic blood pressure 167 mm[Hg] Josesito Basurto MD Work Phone: [employer] 07-12-2022 14:40-0500 Body temperature 97.3 [degF] Josesito Basurto MD Work Phone: [employer] 07-12-2022 14:40-0500 Heart rate 56 /min Josesito Basurto MD Work Phone: [employer] 07-12-2022 11:50-0500 Body height 165.1 cm Josesito Basurto MD Work Phone: [employer] 07-12-2022 11:50-0500 Body mass index (BMI) [Ratio] 27.46 kg/m2 Josesito Basurto MD Work Phone: [facility] [employer] 07-12-2022 11:50-0500 Body weight 74.84 kg Josesito Basurto MD Work Phone: [facility] [employer] 05-30-2022 19:00-0500 Body height 165.1 cm Татьяна Guerrero Other [employer] Other 05-30-2022 19:00-0500 Body mass index (BMI) [Ratio] 27.45 kg/m2 Татьяна Guerrero Other [employer] Other 05-30-2022 19:00-0500 Body temperature 98 [degF] Татьяна Guerrero Other [employer] Other 05-30-2022 19:00-0500 Body weight 74.84 kg Татьяна Yolanda Other [employer] Other 05-30-2022 19:00-0500 Diastolic blood pressure 74 mm[Hg] Татьяна Guerrero Other [employer] Other 05-30-2022 19:00-0500 Respiratory rate 18 /min Татьяна Guerrero Other [employer] Other 05-30-2022 19:00-0500 SaO2% (BldA) [Mass fraction] 98 % Татьяна Guerrero Other [employer] Other 05-30-2022 19:00-0500 Systolic blood pressure 154 mm[Hg] Татьяна Guerrero Other [employer] Other Encounters Encounter Date Encounter Type Care Provider Facility Start: 01-11-2023 End: 01-12-2023 ambulatory Allyssa Lopez APRN.ORGANIZATIONAL EFFECTIVENESS CONSULTANT Work Phone: Hematology/Oncology Comment on above: Malignant neoplasm o f upper-outer quadrant of left breast in female, estrogen receptor positive (HCC) (Primary Dx); 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 therapy Osteopenia due to ca ncer therapy (Primary Dx); Malignant neoplasm of upper-outer quadrant of left breast in female, estrogen receptor positive (HCC) Start: 01-11-2023 End: 01-11-2023 Patient encounter procedure Allyssa Lopez APRN.ORGANIZATIONAL EFFECTIVENESS CONSULTANT Work Phone: [facility] Start: 08-16-2022 End: 08-16-2022 ambulatory [facility] Start: 08-16-2022 End: 08-16-2022 Subsequent hospital visit by physician Josesito Basurto MD Work Phone: [facility] Start: 07-20-2022 End: 07-20-2022 ambulatory GATO CANO Facility:[facility] Start: 07-17-2022 Telephone encounter Gato olivares MD Work Phone: Hematology/Oncology Comment on above: Lab Orders Start: 07-12-2022 End: 07-12-2022 ambulatory [facility] Start: 07-12-2022 End: 07-12-2022 Subsequent hospital visit by physician Josesito Basurto MD Work Phone: [facility] Start: 07-05-2022 End: 07-10-[address] [facility] Start: 07-03-2022 End: 07-04-[address] ALLYSSA LOPEZ Facility: Start: 05-30-2022 End: 05-30-2022 ambulatory Татьяна Guerrero Other [employer] Other Start: 05-30-2022 Office outpatient ne w 20 minutes Татьяна Guerrero [facility] Start: 02-20-2022 End: 02-21-2022 ambulatory GARO Farnsworth Facility:[facility] Start: 01-28-2022 End: 01-28-[address] DOCTOR MORALES Facility:[facility] Start: 09-28-2021 Telephone encounter Gato [facility]ivares MD [facility] Comment on above: Patient Update Start: 09-22-2021 Telephone encounter Gato olivares MD Work Phone: Hematology/Oncology Comment on above: Lab Orders Start: 11-29-2020 End: 11-29-2020 Subsequent hospital visit by physician Laz Portillo MD Work Phone: [facility] Start: 09-20-2020 End: 09-20-2020 Subsequent hospital visit by physician [facility] Comment on above: Arrived Syncope, unspecified syncope type Hypertension, unspec ified type; Fatigue, unspecified type Start: 02-03-2020 End: 02-03-2020 Subsequent hospital visit by physician [facility] Comment on above: Swelling of limb; Malignant neoplasm of upper-outer quadrant of left breast in female, estrogen receptor positive (HCC) Chronic fatigue; Cancer of breast, intraductal, left Start: 11-12-2019 End: 11-14-2019 Subsequent hospital visit by physician [facility] Xr Room 4 [facility] Comment on above: Rotator cuff arthrop athy of left shoulder Start: 07-31-2019 End: 08-02-2019 Subsequent hospital visit by physician [facility] Jef Mammo [facility] Mammography Comment on above: Abnormal mammogram Start: 01-30-2019 End: 02-01-2019 Subsequent hospital visit by physician [facility] Sherryg Mammo [facility] Mammography Comment on above: History of breast ca ncer Lump in female breas t Start: 12-26-2017 End: 12-29-2017 Patient encounter TRIPP PORTILLO [facility] Procedures Date Procedure Procedure Detail Performing Clinician Start: 11-29-2020 Cyanocobalamin vitamin b-12 Raul Swan Work Phone: Start: 09-20-2020 Comprehensive metabo lic panel Laz Portillo MD Work Phone: Start: 09-20-2020 Lipid panel Laz Portillo MD Work Phone: Start: 09-20-2020 Dup-scan [...] cancer screen colonoscopy Colon cancer screen colonoscopy [place] Start: 06-26-2028 Screening for malign ant neoplasm of colon [facility] Start: 01-11-2026 DIABETES SCREEN DIABETES SCREEN [facility] Start: 09-20-2025 Lipid panel [facility] Start: 03-23-2024 DIABETES SCREEN DIABETES SCREEN [facility] Start: 01-12-2024 BP CONTROLLED (<130/80) BP CONTROLLE D (<130/80) [facility] Start: 07-26-2023 Depression Monitoring Depression Mon itoring [facility] Start: 07-21-2023 BP CONTROLLED (<130/80) BP CONTROLLE D (<130/80) [facility] Start: 07-12-2023 End: 09-11-2023 CBC W Auto Differential panel - Blood CBC + DIFF Lab Routine Malignant neoplasm of upper-outer quadrant of left breast in female, estrogen receptor positive (HCC) 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 therapy Expected: 07/12/2023, Expires: 09/11/2023 [facility] Work Phone: Comment on above: Expected: 07/12/2023 , Expires: 09/11/2023 Start: 07-12-2023 End: 09-11-2023 Comprehensive metabolic 2000 panel - Serum or Plasma COMP METABOLIC PANEL Lab Routine Malignant neoplasm of upper-outer quadrant of left breast in female, estrogen receptor positive (HCC) 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 therapy Expected: 07/12/2023, Expires: 09/11/2023 [facility] Work Phone: Comment on above: Expected: 07/12/2023 , Expires: 09/11/2023 Start: 04-27-2023 Annual Wellness Visi t (AWV) Annual Wellness Visit (AWV) [facility] Start: 04-26-2023 Depression Monitoring Depression Mon itoring [facility] Start: 04-26-2023 DTaP/Tdap/Td vaccine (1 - Tdap) DTaP/Tdap/Td vaccine (1 - Tdap) [facility] Comment on above: Postponed from 02/21 (Patient Refused) Start: 03-03-2023 Screening for malign ant neoplasm of breast Breast cancer screen [facility] Start: 01-11-2023 Influenza vaccination INFLUENZA (#1) [facility] Start: 12-04-2022 Lipid panel Lipid screen [facility] [place], [place] Start: 12-04-2022 Lipid screen Lipid screen [facility] [place], [place] Start: 10-26-2022 End: 10-26-2022 Patient encounter procedure 10/26/2022 Office Visit Primary Care Laz Portillo MD [address] [place] [id number] [facility] Start: 10-25-2022 COVID-19 Vaccine (3 - Booster for Moderna series) COVID-19 Vaccine (3 - Booster for Moderna series) [facility] Comment on above: Postponed from 09/20 (Patient Refused) Start: 09-24-2022 Pneumococcal 65+ yea rs Vaccine (1 - PCV) Pneumococcal 65+ years Vaccine (1 - PCV) [facility] Comment on above: Postponed from 02/21 (Patient Refused) Start: 08-16-2022 End: 08-16-2022 Xcapsl ctrc rmvl insj io lens prosth w/o ecp EYE CATARACT EMULSIFICATION IOL IMPLANT Cataract of right eye, unspecified cataract type 08/16/2022 1:34 PM EDT [facility] Start: 07-25-2022 Shingles vaccine (1 of 2) Shingles vaccine (1 of 2) [facility] Comment on above: Postponed from 02/21 (Patient Refused) Start: 07-25-2022 End: 07-25-2022 Patient encounter procedure 07/25/2022 Office Visit Primary Care Mary Katz, CREDIT COORDINATOR - ORGANIZATIONAL EFFECTIVENESS CONSULTANT [address] [place] [address] [facility] Start: 07-12-2022 End: 07-12-2022 Xcapsl ctrc rmvl insj io lens prosth w/o ecp EYE CATARACT EMULSIFICATION IOL IMPLANT Cataract, nuclear sclerotic, left eye 07/12/2022 1:33 PM [facility] Start: 05-13-2022 ADVANCE DIRECTIVE DISCUSSION ADVANCE DIRECTIVE DISCUSSION [facility] Start: 05-13-2022 DEPRESSION ASSESSMENT DEPRESSION ASS ESSMENT [facility] Start: 01-11-2022 Influenza vaccination INFLUENZA (Sea son Ended) [facility] Start: 10-02-2021 End: 09-23-2022 CBC W Auto Differential panel - Blood CBC + DIFF Lab Routine Malignant neoplasm of upper-outer quadrant of left breast in female, estrogen receptor positive (HCC) 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 therapy Expected: 10/02/2021 (Approximate), Expires: 09/23/2022 [facility] Work Phone: Comment on above: Expected: 10/02/2021 (Approximate), Expires: 09/23/2022 Start: 10-02-2021 End: 09-23-2022 Comprehensive metabolic 2000 panel - Serum or Plasma COMP METABOLIC PANEL Lab Routine Malignant neoplasm of upper-outer quadrant of left breast in female, estrogen receptor positive (HCC) 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 therapy Expected: 10/02/2021 (Approximate), Expires: 09/23/2022 [facility] Work Phone: Comment on above: Expected: 10/02/2021 (Approximate), Expires: 09/23/2022 Start: 10-02-2021 End: 12-02-2021 VITAMIN D 25 HYDROXY VITAMIN D 25 HYDROXY Lab Routine Malignant neoplasm of upper-outer quadrant of left breast in female, estrogen receptor positive (HCC) 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 Work Phone: Start: 05-13-2021 ADVANCE DIRECTIVE DISCUSSION ADVANCE DIRECTIVE DISCUSSION [facility] Start: 01-13-2021 End: 01-13-2021 Patient encounter procedure 01/13/2021 Office Visit Family Laz Pendleton MD [address] [place] [phone] Laz Portillo MD Inc Start: 01-11-2021 Influenza vaccination Flu vaccine (# 1) [facility] Work Phone: Start: 10-28-2020 Adult depression screening assessment DEPRESSION SCREENING [facility] Start: 09-28-2020 End: 09-28-2020 Patient encounter procedure 09/28/2020 Office Visit Family Laz Pendleton MD [address] [place] [address] [phone] Laz Portillo MD Inc Start: 09-20-2020 COVID-19 VACCINE (3 - Booster for Moderna series) COVID-19 VACCINE (3 - Booster for Moderna series) [facility] Start: 09-20-2020 COVID-19 VACCINE (3 - Moderna series) COVID-19 VACCINE (3 - Moderna series) [facility] Start: 08-23-2020 COVID-19 VACCINE (3 - Moderna risk series) COVID-19 VACCINE (3 - Moderna risk series) [facility] Start: 07-30-2020 Breast cancer screen Breast cancer s creen [place] Start: 07-30-2020 Screening for malign ant neoplasm of breast Breast cancer screen [place] Start: 07-27-2020 Annual Wellness Visi t (AWV) Annual Wellness Visit (AWV) [place] Start: 02-10-2020 End: 02-10-2020 Office Visit 02/10/2020 Office Visit Family Laz Pendleton MD [address] [place] [address] [phone] Laz Portillo MD [employer] Start: 02-03-2020 End: 02-03-2020 Office Visit 02/03/2020 Office Visit Family Medicine Laz Portillo MD [address] [place] [address] [phone] Laz Portillo MD [employer] Start: 01-31-2020 Breast cancer screen Breast cancer s crerani [place] Start: 01-12-2020 Influenza vaccination Flu vaccine (# 1) [place] Start: 10-23-2019 End: 10-23-2019 Office Visit 10/23/2019 Office Visit Family Medicine Laz Portillo MD [address] [place] [address] [phone] Laz Portillo MD Inc Start: 05-23-2019 Creatinine measurement Creatinine mo [place]itoring [place] Start: 05-23-2019 Creatinine monitoring Creatinine mon [place]oring [place] Start: 05-23-2019 Potassium monitoring Potassium monit [place]ing [place] Start: 01-11-2019 Influenza vaccination Flu vaccine (# 1) [place] Start: 10-08-2018 Annual Wellness Visi t (AWV) Annual Wellness Visit (AWV) [place] Start: 02-21-2013 Pneumococcal 65+ yea rs Vaccine (1 of 1 - PPSV23) Pneumococcal 65+ years Vaccine (1 of 1 - PPSV23) [place] Start: 02-21-2013 Pneumococcal 65+ yea rs Vaccine (1 of 2 - PCV13) Pneumococcal 65+ years Vaccine (1 of 2 - PCV13) [place] Start: 02-21-2013 PNEUMOCOCCAL: 65+ (1 - PCV) PNEUMOCOCCAL: 65+ (1 - PCV) [facility] Start: 02-21-2013 PNEUMOVAX AGE 65 AND OVER WITH 5YR LOOKBACK (#1) PNEUMOVAX AGE 65 AND OVER WITH 5YR LOOKBACK (#1) [facility] Start: 02-21-1998 Shingles Vaccine (1 of 2) Shingles Vaccine (1 of 2) [facility] Start: 02-21-1998 SHINGRIX VACCINE (1 of 2) SHINGRIX VACCINE (1 of 2) [facility] Start: 02-21-1993 COLOGUARD (FIT-DNA) COLOGUARD (FIT-D NA) [facility] Start: 02-21-1993 Colonoscopy COLONOSCOPY [facility] Start: 02-21-1993 COLORECTAL CANCER SCREENING COLORECTAL CANCER SCREENING [facility] Start: 02-21-[address] COLONOGRAPHY [facility] Start: 02-21-1993 FECAL OCCULT BLOOD FECAL OCCULT BLOO D [facility] Start: 02-21-1993 LIPID SCREEN LIPID SCREEN [facility] Start: 02-21-1993 Screening for malign ant neoplasm of colon [facility] Start: 02-21-1993 SIGMOIDOSCOPY SIGMOIDOSCOPY [facility] Start: 1988 Mammography MAMMOGRAM [facility] Start: 02-21-1967 DTaP/Tdap/Td vaccine (1 - Tdap) DTaP/Tdap/Td vaccine (1 - Tdap) [facility] [place] Start: 02-21-1967 Urine microalbumin profile DTAP,TDAP,TD (1 - Tdap) [facility] Start: 02-21-1966 ANNUAL PCP TEAM SALES LEAD FELIZ DISEASE VISIT ANNUAL PCP TEAM CHRONIC DISEASE VISIT [facility] Start: 02-21-1966 BP CONTROLLED (<130/80) BP CONTROLLE D (<130/80) [facility] Start: 02-21-1966 HEPATITIS C SCREENING HEPATITIS C SC TRISTA [facility] Start: 02-21-1954 PNEUMOCOCCAL: 65+ (1 - PCV) PNEUMOCOCCAL: 65+ (1 - PCV) [facility] End: 07-21-2023 CBC W Auto Differential panel - Blood CBC + DIFF Lab Routine Malignant neoplasm of upper-outer quadrant of left breast in female, estrogen receptor positive (HCC) Every 6 months for 2 Occurrences starting 07/21/2022 until 07/21/2023 [facility] Work Phone: Comment on above: Every 6 months for 2 Occurrences starting 07/21/2022 until 07/21/2023 End: 07-21-2023 Comprehensive metabolic 2000 panel - Serum or Plasma COMP METABOLIC PANEL Lab Routine Malignant neoplasm of upper-outer quadrant of left breast in female, estrogen receptor positive (HCC) Every 6 months for 2 Occurrences starting 07/21/2022 until 07/21/2023 [facility] Work Phone: Comment on above: Every 6 months for 2 Occurrences starting 07/21/2022 until 07/21/2023 End: 09-20-2020 ECHO 2D WO Color Doppler Complete ECHO 2D WO Color Doppler Complete Echocardiography Routine Syncope, unspecified syncope type 1 Occurrences starting 09/20/2020 until 09/20/2020 [facility] Work Phone: Comment on above: 1 Occurrences starti ng 09/20/2020 until 09/20/2020 End: 08-16-2022 INITIATE PACU OXYGEN THERAPY PROTOCOL Initiate PACU Oxygen Therapy Protocol Respiratory Care Routine Continuous until discontinued starting 08/16/2022 [employer] Work Phone: Comment on above: Continuous until dis continued starting 08/16/2022 End: 02-10-2024 [facility]GUYEN DIAGNOSTIC BILATERAL [facility] DIAGNOST[facility] BILATERAL Radiology Routine Malignant neoplasm of upper-outer quadrant of left breast in female, estrogen receptor positive (HCC) 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 therapy 1 Occurrences starting 01/11/2023 until 02/10/2024 [facility] Work Phone: Comment on above: 1 Occurrences starti ng 01/11/2023 until 02/10/2024 Oxygen therapy [Mini mum Data Set] Initiate Oxygen Therapy Protocol Respiratory Care Routine As Needed until discontinued starting 07/12/2022 [employer] Phone: Comment on above: As Needed until disc ontinued starting 07/12/2022 Oxygen therapy [Mini mum Data Set] Initiate Oxygen Therapy Protocol Respiratory Care Routine As Needed until discontinued starting 08/16/2022 [employer] Phone: Comment on above: As Needed until disc ontinued starting 08/16/2022 End: 02-03-2020 US DUP UPPER EXTREMITY LEFT VENOUS US DUP UPPER EXTREMITY LEFT VENOUS Imaging STAT Swelling of limb Malignant neoplasm of upper-outer quadrant of left breast in female, estrogen receptor positive (HCC) 1 Occurrences starting 02/03/2020 until 02/03/2020 [facility]- [place], [place] Comment on above: 1 Occurrences starti ng 02/03/2020 until 02/03/2020 [facility] Immunizations Immunization Date Immunization Notes Care Provider Ute burkett 05-09-2022 Influenza, FLUAD, (a ge 65 y+), Adjuvanted, 0.5mL Josesito Basurto MD Work Phone: [facility] 2021 Influenza, FLUAD, (a ge 65 y+), Adjuvanted, 0.5mL Josesito Basurto MD Work Phone: [facility] Work Phone: 07-26-2020 COVID-19, MODERNA BL UE border, Primary or Immunocompromised, (age 12y+), IM, 100 mcg/0.5mL Josesito Basurto MD Work Phone: [facility] 06-30-2020 COVID-19, MODERNA BL UE border, Primary or Immunocompromised, (age 12y+), IM, 100 mcg/0.5mL Josesito Basurto MD Work Phone: [facility] Work Phone: 03-09-2020 Influenza, High-dose , Quadv, 65 yrs +, IM (Fluzone) [address] 10-13-2018 diphtheria, tetanus toxoids and acellular pertussis vaccine, unspecified formulation [place], [place] 02-20-2013 seasonal influenza, intradermal, preservative free [facility] Payers Date Payer Category Payer Medicare [facility] [id number] 2022-Present [phone] [address] [place] [address] [facility] [id number] 2021 Medicare [id number] 2020 Unknown [id number] 2014 Medicare [id number] 2014 Medicare MEDICARE MEDICAR E PART A AND B xxxxxxxxxxx 2014-Present [phone] [place] [address] xxxxxxxxxxx [id number] 2014 Medicare MEDICARE MEDICAR E PART A AND B [id number] 2014-Present [phone] [place] [address] [id number] 2014 Unknown [employer] SUPP [id number] 2014-Present [phone] ATTN INDIVIDUAL CLAIMS [address] [employer] [place] [address] xxxxxx-xx [id number] 2014 Unknown [employer] [place] [employer] [place] [employer] SUPP [id number] 2014-Present [phone] ATTN INDIVIDUAL CLAIMS [address] [employer] [place] [address] [id number] 2013 Unknown [employer] [place] [employer] [place] MEDICARE SUPPLEMENT [id number] 2013-Present [phone] [address] [employer] [place] [address] Indemnity [id number] 1959 Medicare [id number] 1959 Medicare [id number] 1948 Unknown [id number] 1948 Unknown [id number] 1948 Unknown [id number] 1948 Unknown [id number] 1948 Unknown [id number] 1948 Unknown [id number] Social History Date Type Detail Facility Start: 07-17-2019 End: 01-11-2023 Tobacco smoking status NHIS Never smoker [facility] Start: 07-17-2019 End: 07-25-2022 Alcohol intake Current non-drinker of [facility] (finding[facility] [place] Start: 1950 Sex Assigned At Not on file [facility] [place] Start: 02-03-2020 End: 01-11-2023 Tobacco use and exposure Never used [facility] Start: 10-13-2018 End: 01-11-2023 Alcohol intake No [facility] Start: 06-08-2020 End: 07-25-2022 History SDOH Social Connections Phone 5 [employer] Phone: Start: 06-08-2020 End: 07-25-2022 History SDOH Social Connections Get Together 1 [employer] Phone: Start: 06-08-2020 End: 07-25-2022 History SDOH Social Connections Membership 2 [employer] Phone: Start: 06-08-2020 History SDOH Social Connections Meetings 99 [employer] Phone: Start: 06-08-2020 End: 10-12-2021 History SDOH Social Connections Living 3 [employer] Phone: Start: 06-08-2020 History SDOH Education 12 [employer] Phone: Start: 07-02-2022 End: 08-16-2022 Exposure to SARS-CoV-2 (event) Not sure [employer] Phone: Start: 11-18-2020 End: 01-11-2023 Alcohol intake [facility] Start: 03-23-2021 End: 01-11-2023 Alcohol intake Current drinker of alcohol (finding) [facility] Start: 06-24-2018 History SDOH Alcohol Comment rarely [facility] Adult Depression Screening Assessment 0 [facility] NEGATED: Highlighted rowStart: NINF History of tobacco use Passive smoker [facility] Medical Equipment Procedure Code Equipment Code Equipment Origin al Text Equipment Identifier Dates Lens Iol Sn60wf 15.0d - [id number] Start: 07-12-2022 Comment on above: Description: No karime ge for lens implant - included in procedure Lens Io +170 Sai pt L13mm Dia6mm 0deg Haptic Ang A Constant - [id number] Start: 08-16-2022 Comment on above: Description: No karime ge lens - included in procedure Clinical Notes 05-20-2020 to 01-11-2023 Tessa Gao RN - 01/11/2023 3:14 PM Allyssa Hicks APRN.CNP - 01/11/2023 2:22 PM EDTDischarge InstructionsTelephone Encounter - Eve Bhakta - 07/17/2022 3:35 PM ESTDischarge Instructions Note Date & Type Note Facility 01-11-2023 Note HNO ID: [id number] Author: Tessa Gao RN Service: ? Author Type: Registered Nurse Type: Progress Notes Filed: 01/11/2023 4:02 PM Note Text: [id number] Sunni Ribeiro [id number] [facility] 01-11-2023 Note HNO ID: [id number] Author: Allyssa Lopez APRN.CNP Service: ? Author [...] ductal carcinoma, largest invasive component 0.8 cm. ER/NM positive, HER-2 negative, Oncotype recurrence score low (8). Surgical margins negative. The patient underwent a left axillary sentinel node procedure 07/08/2018, and 0 of 15 lymph nodes were involved. Monoallelic mutation of PALB2 gene - ICD9: V84.01, V84.89, V84.09, ICD10: Z15.01, Z15.89, Z15.09 Heterozygous PALB2 mutation of unclear significance identified on [employer] genetic analysis 07/08/2018. Per medical genetics this [...] as return. Continue Vit D and Calcium yvqg-zvj-ittquoh. INTERIM HISTORY: Updated Visit, January 11, 2023: [...] that she would lose coverage here at [facility]. Lost her last August 2021 He [...] currently on arimidex. 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 [facility] 01-11-2023 History of Presen t illness Narrative [id number] Sunni Ribeiro [id number] documented in this encounter [facility] 01-11-2023 History of Presen t illness Narrative [...] Laz Portillo OTHER PHYSICIANS: Dr. Bronson, Dr. Wymna, Dr. Lake CC: This is a 72 [...] ductal carcinoma, largest invasive component 0.8 cm. ER/NM positive, HER-2 negative, Oncotype recurrence score low [...] as return. Continue Vit D and Calcium [id number]-[id number]. INTERIM HISTORY: Updated Visit, January 11, 2023: [...] that she would lose coverage here at [facility]. Lost her last August 2021 He [...] currently on arimidex. 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 Recommendations: Routine mammogram and clinical evaluation in 12 months. 03/03/2021 DEXA scan ([place]) Osteopenic. 03/03/2021 Bilateral diagnostic mammogram ([place]) Findings: Diagnostic category-benign findings. Recommendations: Routine mammogram and clinical evaluation in 12 months. 03/02/2020 Bilateral Diagnostic Mammogram ([place]) Findings: Diagnostic category 2-benign findings. Recommendations: Routine mammogram and clinical evaluation in 12 months. 07/28/2018 Bone Density ([facility] [place]) Normal. Allyssa Lopez APRN.ORGANIZATIONAL EFFECTIVENESS CONSULTANT Hematology and Oncology Services Provided at: [place], [place] CC: Dr. Sulaiman Bronson (General Surgery [facility]) I spent a total of 30 minutes on the date of the service which included preparing to see the patient, dfrk-sf-oeyl patient care, completing clinical documentation, obtaining and/or reviewing separately obtained history, performing a medically appropriate examination, counseling and educating the patient/family/caregiver, ordering medications, tests, or procedures, independently interpreting results (not separately reported), and communicating results to the patient/family/caregiver. documented in this encounter [facility] 08-13-2022 Hospital Discharg e rolando Basurto MD [...] Basurto if you have any problems: Office [phone] 8. Continue all your previous medications. You may use Aspirin, Tylenol, or Advil if needed. 9. You have an appointment in the office: 10. Please bring your drops into the office at your next visit. documented in this encounter [facility] [employer] Phone: 07-20-2022 Note HNO ID: [id number] Author: Gato Cano MD Service: ? Author [...] ductal carcinoma, largest invasive component 0.8 cm. ER/NM positive, HER-2 negative, Oncotype recurrence score low [...] that she would lose coverage here at [facility]. Lost her last August 2021 He [...] currently on arimidex. 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 [facility] 07-17-2022 Miscellaneous Notes Formattin g of this note might be different from the original. Orders are . Please sign and/or add labs. Eve Bhakta documented in this encounter [facility] 07-05-2022 Hospital Discharg e instructions Rosi Costa [...] Basurto if you have any problems: Office [phone] 8. Continue all your previous medications. You [...] if your caregiver approves them. Only take pqkd-ueu-jitkebw or prescription medicines for pain, discomfort, or [...] Document Reviewed: 08/27/2012 ExitCare Patient Information 2013 [employer]. documented in this encounter [facility] [employer] Work Phone: 05-30-2022 Evaluation note Encounter Date [...] no improvement in 2 to 3 days [facility] Other 05-24-2022 Miscellaneous Notes* Telephone Encounter - Laura Barber - 10/03/2021 11:29 AM EDT Spoke with patient and informed of Dr. Thomas recommendation patient was very happy with this and asked that we send her records to [facility] when Dr. Pinto is there so that she can follow up with him and she will see him in later december. Ángela can you please forward the patients records to [facility]. * Telephone Encounter - Laura Barber - 10/02/2021 10:00 AM EDT LVM for patient please inform patient of Dr. Thomas message give patient phone number to [employer] [phone]. * Telephone Encounter - Gustavo Pinto MD - 09/30/2021 5:37 PM EDT Happy to see her! Thanks. * Telephone Encounter - Gato Cano MD - 09/30/2021 10:35 AM EDT She should see Dr. Pinto when he starts in [place]. * Telephone Encounter - Laura Stevenson Pss - 09/28/2021 2:17 PM EDT Spoke with patient due to her insurance changing PFA denied her coming to [facility] because she is out ofnetwork and this would cause the patient a high out of pocket cost Dr. Antonio the patient would like to know who you would like to refer her to in this case? Please advise [facility] Miscellaneous Notes* Telephone Encounter - Oumou Callahan MA - 09/22/2021 12:12 PM EDT Patient has an appt on 10/02/21. Would you like labs, if so place orders. Oumou Callahan MA documented in [facility]11-[facility]-2021 NoteEducation Materials Pulmonary Medicine Bronchospasm, Adult Bronchospasm is when airways in the lungs get smaller. When this happens, it can be hard to breathe. You may cough. You may also make a whistling sound when you breathe (wheeze). Follow these instructions at home: Medicines ? Take jmhp-anx-mqbxjok and prescription medicines only as told by [...] provider. Document Revised: 04/11/2018 Document Reviewed: 05/02/2017 [employer] Patient Education ? 2020 [employer] Asthma, Adult Asthma is a long-term [...] pollute the air. These may include household special education case manager, wood smoke, smog, or chemical odors. ? [...] you are not home. 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 + + + (more content not included)...[employer] Phone: 1(185) 346-256001-14-2021 Note [id number]01-08-2021 NotePatient Education Materials Follows:and Gynecology Urinary Tract [...] these instructions at home: Medicines ? Take lbrq-pwp-ulgodgv and prescription medicines only as told by [...] 10/15/2008 Document Revised: 04/16/2019 Document Reviewed: 11/06/2018 [employer] Patient Education ? 2020 [employer].[facility] HospitalEvaluation note * Diagnosis Syncope, unspecified syncope type documented in this encounter [employer] Phone: evaluation note* Diagnosis Hypertension, unspecified type Fatigue, unspecified type documented in this encounter [employer] Phone: evaluation note* Diagnosis Malignant neoplasm of upper-outer quadrant of left breast in female, estrogen receptor positive (HCC)- Primary 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 therapy Disorder of bone and cartilage, unspecified [facility] this encounter [facility]* Diagnosis Malignant neoplasm of upper-outer quadrant of left breast in female, estrogen receptor positive (HCC)- Primary documented in this encounter [facility] CenterEval[facility]* Diagnosis Malignant neoplasm of upper-outer quadrant of left breast in female, estrogen receptor positive (HCC)- Primary 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 therapy Disorder of bone and cartilage, unspecified documented in this encounter [facility] CenterEv[facility]* Diagnosis 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 therapy- Primary Disorder of bone and cartilage, unspecified Malignant neoplasm of upper-outer quadrant of left breast in female, estrogen receptor positive (HCC) documented in this encounter [facility] general Narrative - Reported* Type Description Date Medical History Asthma Medical History HTN (hypertension) Medical History Anxiety Medical History Glaucoma Surgical History hysterectomy Surgical History cholecystectomy Surgical History breast cancer [facility] Other Reason for referral (narrative)* Diagnostic Procedure Only (Routine) - Pending Review Specialty Diagnoses / Procedures Referred By Contac t Referred To Contact [facility] Diagnoses Malignant neoplasm of upper-outer quadrant of left breast in female, estrogen receptor positive (HCC) 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 therapy Procedures NGUYEN DIAGNOSTIC BILATERAL DIAGNOSTIC MAMMOGRAPHY COMPUTER-AIDED DETCJ Allyssa Mejia APRN.CNP [address] [place] [address] [place] [address] [facility] [address] [place] [phone] Referral ID Status Reason Start Date Expiration Date Visits Requested Visits Authorized [id number] Pending Review Auto-Generat ed Referral 01/11/2023 02/10/2024 1 1 [facility] Summary Purpose Family History No Family History Records FoundNo Family History Records FoundNo Family History Records FoundNo Family History Records FoundNo Family History Records Found Advance Directives No Advanced Directives Records FoundDocuments on File Type Date Recorded Patient Husbandry Person Expl anation Advance Directives and Living Will Power of Accounting System Expert Documents on File Type Date Recorded Patient Husbandry Person Expl anation Advance Directives and Living Will Power of Accounting System Expert Documents on File Type Date Recorded Patient Husbandry Person Expl anation ACP-Advance Directive ACP-Power of Accounting System Expert Documents on File Type Date Recorded Patient Husbandry Person Expl anation ACP-Advance Directive ACP-Power of Accounting System Expert Latest Code Status on File Code Status [...] OR WO CAD LEFT Estiven Canela MD [address] [place] [address] [place] [address] Status Reason Specialty Diagnoses / Procedures Referre d By Contact Referred To Contact Closed Radiology Diagnoses Swelling of limb Malignant neoplasm of upper-outer quadrant of left breast in female, estrogen receptor positive (HCC) Procedures US DUP UPPER EXTREMITY LEFT VENOUS Laz Portillo MD [address] [place] [id number] Status Reason Specialty Diagnoses / Procedures Referred By Contact Referred To Contact Authorized Radiology Diagnoses History of breast cancer Procedures NGUYEN DIGITAL DIAGNOSTIC W OR WO CAD BILATERAL Sulaiman Bronson MD [address] [place] [address] Status Reason Specialty Diagnoses / Procedures Referred By Contact Referred To Contact Pending Review Radiology Diagnoses Lump in female breast Procedures US BREAST LIMITED LEFT Sulaiman Bronson MD [address] [place] [address] Status Reason Specialty Diagnoses / Procedures Referre d By Contact Referred To Contact Closed Diagnoses Syncope, unspecified syncope type Procedures ECHO 2D WO Color Doppler Complete Laz Portillo MD [address] [place] [address] Assessments Diagnosis Abnormal mammogram Abnormal mammogram, unspecified [...] 01/11/2023 3:15 PM EDT 650 mg zoledronic by-dpgcxnvb-0.9NaCl 4 mg iv piggyback 100 mL (ZOMETA) 4 mg, INTRAVENOUS, Administer over 15 Minutes, ONCE, 1 dose, On Sat01/11/23 at 1530, Hazardous Potential Reproductive Risk Drug: Use appropriate PPE. New Bag/Syringe/Bottle 01/11/2023 3:43 PM EDT 4 mg Additional Source Comments INFORMATION SOURCE (unrecogn ized section and content) DATE CREATED AUTHOR 12/31/2017 [facility] DATE CREATED AUTHOR AUTHOR'S ORGANIZ ATION 03/31/2021 [facility] DATE CREATED AUTHOR AUTHOR'S ORGANIZ ATION 07/07/2022 [facility] DATE CREATED AUTHOR AUTHOR'S ORGANIZ ATION 08/18/2022 [facility] DATE CREATED AUTHOR AUTHOR'S ORGANIZ ATION 01/15/2023 [facility] Reason for Visit (unrecogniz ed section and content) Status Reason Specialty Diagnoses / Procedures Referre d By Contact Referred To Contact Open Radiology Diagnoses Personal history of malignant neoplasm of breast Procedures HC MAMMO DGX UNILATERAL INCL CAD IF PERF Keegan Canela T [address] [place] [address] [facility] [address] [place] [address] Status Reason Specialty Diagnoses / Procedures Referre d By Contact Referred To Contact Closed Radiology Diagnoses Swelling of limb Malignant neoplasm of upper-outer quadrant of left breast in female, estrogen receptor positive (HCC) Procedures US DUP UPPER EXTREMITY LEFT VENOUS Laz Portillo MD [address] [place] [address] Status Reason Specialty Diagnoses / Procedures Referre d By Contact Referred To Contact Open Radiology Diagnoses Malignant neoplasm of unspecified site of left female breast Procedures HC MAMMO DGX BILATERAL INCL CAD IF PERF Sulaiman Bronson MD [address] [place] [address] [address] Status Reason Specialty Diagnoses / Procedures Referred By Contact Referred To Contact Pending Review Radiology Diagnoses Malignant neoplasm of unspecified site of left female breast Procedures HC US BREAST LTD Sulaiman Bronson MD [address] [place] [address] [address] Status Reason Specialty Diagnoses / Procedures Referred By Contact Referred To Contact Authorized Cardiology Diagnoses Hypertension, unspecified type Syncope, unspecified syncope type Procedures 47002 - NM Duplex Scan Extracranial, Luis M Laz Portillo MD [address] [place] [address] Status Reason Specialty Diagnoses / Procedures Referre d By Contact Referred To Contact Closed Diagnoses Syncope, unspecified syncope type Procedures ECHO 2D WO Color Doppler Complete Laz Portillo MD [address] [place] [address] Reason Comments Lab Orders Reason Comments Patient Update Specialty Diagnoses / Procedures Referred By Contac t Referred To Contact Diagnoses Cataract, nuclear sclerotic, left eye Cataract, nuclear sclerotic, left eye [H25.12] Procedures NM XCAPSL CTRC RMVL INSJ IO LENS PROSTH W/O ECP EYE CATARACT EMULSIFICATION IOL IMPLANT LEFT EYE PERIBULBAR ; Josesito Dawn MD [address] [place] [address] [facility] [address] [place] [address] Referral ID Status Reason Start Date Expiration Date Visits Re quested Visits Authorized [id number] 1 1 Specialty Diagnoses / Procedures Referred By Contac t Referred To Contact Diagnoses Cataract of right eye, unspecified cataract type Cataract of right eye, unspecified cataract type [H26.9] Procedures NM XCAPSL CTRC RMVL INSJ IO LENS PROSTH W/O ECP EYE CATARACT EMULSIFICATION IOL IMPLANT Josesito Basurto MD [address] [place] [address] [facility] [address] [place] [address] Referral ID Status Reason Start Date Expiration Date Visits Re quested Visits Authorized [id number] 1 1 Reason Comments Breast Cancer Specialty Diagnoses / Procedures Referred By Contac t Referred To Contact Diagnoses Malignant neoplasm of upper-outer quadrant of left breast in female, estrogen receptor positive (HCC) 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 therapy Procedures INJECTION, ZOLEDRONIC ACID, 1 MG Gato Cano MD [address] [place] [address] [place] [address] [address] [place] [address] Referral ID Status Reason Start Date Expiration Date V isits Requested Visits Authorized [id number] Authorized 07/20/2022 01/19/2023 1 1 Source Comments (unrecognize d section and content) In the event this informatio n is protected by the Federal Confidentiality of Alcohol and Drug Abuse Patient Records regulations: The Federal rules restrict any use of the information to criminally investigate or prosecute any alcohol or drug abuse patient.[facility] the event this information is protected by the Federal Confidentiality of Alcohol and Drug Abuse Patient Records regulations: The Federal rules restrict any use of the information to criminally investigate or prosecute any alcohol or drug abuse patient.[facility] Center[facility] the event this information is protected by the Federal Confidentiality of Alcohol and Drug Abuse Patient Records regulations: The Federal rules restrict any use of the information to criminally investigate or prosecute any alcohol or drug abuse patient.[facility] Center[facility] the event this information is protected by the Federal Confidentiality of Alcohol and Drug Abuse Patient Records regulations: The Federal rules restrict any use of the information to criminally investigate or prosecute any alcohol or drug abuse patient.[facility] Center[facility] the event this information is protected by the Federal Confidentiality of Alcohol and Drug Abuse Patient Records regulations: The Federal rules restrict any use of the information to criminally investigate or prosecute any alcohol or drug abuse patient.[facility] Care Teams (unrecognized sec tion and content) Chief Customer Officer Relationship Specialty Start Date End Date Laz Portillo MD [address] [place] [phone] PCP - General Family Practice 06/24/18 Chief Customer Officer Relationship Specialty Start Date End Date Laz Portillo MD [address] [place] [phone] PCP - General Family Practice 06/24/18 Chief Customer Officer Relationship Specialty Start Date End Date Laz Portillo MD [address] [place] [phone] PCP - General Family Medicine 11/12/19 Chief Customer Officer Relationship Specialty Start Date End Date Laz Portillo MD [address] [place] [phone] PCP - General Family Medicine 06/24/18 Chief Customer Officer Relationship Specialty Start Date End Date Laz Portillo MD [address] [place] [address] PCP - General Family Medicine 11/12/19 Chief Customer Officer Relationship Specialty Start Date End Date Laz Portillo MD [address] [place] [phone] PCP - General Family Medicine 06/24/18 Chief Customer Officer Relationship Specialty Start Date End Date Laz Portillo MD [address] [place] [phone] PCP - General Family Medicine 06/24/18 Scheduled [...] Josesito Basurto MD - Comment: FOR BLOCK) oqkhbvat-qorwvqxyc-teoszent ophthalmic ointment (CANCELED) PRN, Starting on Chayo [...] 1416, Intra-op 1413 (Given - Provid er: Josseito Basurto MD) tropicamide (MYDRIACYL) 1 % ophthalmic solution 1 drop (COMPLETED) 1 drop, Left Eye, EVERY 5 MIN PRN, 3 doses, Starting on Chayo 07/12/22 at 1123, Until Chyao 07/12/22 at 1226, pre-op, To operative eye(s) for 3 doses, every 5 minutes, starting 20 minutes prior to surgery, [facility] - enter number of doses based on [...] minutes, starting 20 minutes prior to surgery, [facility] - enter number of doses based on [...] surgery) 1205 (Given - Provid er: Sheila Blel RN) tropicamide (MYDRIACYL) 1 % ophthalmic solution [...] (NoRateChange - Provider: Pacheco Mckeon APRN - TECHNOLOGY LAB TEACHER) PRN Medication Order 08/14/2022 08/15/2022 08/16/2022 0.9 [...] Josesito Basurto MD - Comment: PERIBULBAR BLOCK) wfexzqua-whhiembru-rttcwcbp ophthalmic ointment (CANCELED) PRN, Starting on Chayo [...] BE BASED ON THE PRIMARY CLINICAL RECORDS. [facility] [facility]. provides no warranty or guarantee of the accuracy or completeness of information in this document.
[2023-06-10 14:35] LABS: Alanine Aminotransferase 37 U/L (14-59); Albumin Level 3.7 g/dL (3.4-5.0); Alkaline Phosphatase 51 U/L (46-116); Anion Gap 12.9; Aspartate Amino Transferase 23 U/L (15-37); BUN Creatinine Ratio 18.1; Bilirubin Total 1.2 mg/dL (0.2-1.0); Carbon Dioxide 28.7 mmol/L (21.0-32.0); Chloride 103 mmol/L (98-107); Chol HDL Ratio 3.1; Cholesterol 244 mg/dL (<=200); Estimated GFR (African America >60 (>=60); Estimated GFR (Non-African Ame >60 (>=60); Globulin 3.7 g/dL; Glucose 81 mg/dL (74-106); HDL Cholesterol 78 mg/dL (40-60); Potassium 3.6 mmol/L (3.5-5.1); Sodium 141 mmol/L (136-145); Total Protein 7.4 g/dL (6.4-8.2); Triglycerides 163 mg/dL (<=150); VLDL CHOLESTEROL 32.6 mg/dL
== END 2023-06-10 12:55 | disposition home or self-care (01) ==
LOC: LAB 12:55
DX: Z00.00 Encounter for general adult medical examination without abnormal findings (principal); F32.A Depression, unspecified; I10 Essential (primary) hypertension; E78.2 Mixed hyperlipidemia; M25.561 Pain in right knee; M25.461 Effusion, right knee; I89.0 Lymphedema, not elsewhere classified; C50.412 Malignant neoplasm of upper-outer quadrant of left female breast; Z17.0 Estrogen receptor positive status [ER+]; E89.89 Other postprocedural endocrine and metabolic complications and disorders; R68.89 Other general symptoms and signs; J45.50 Severe persistent asthma, uncomplicated
CPT/HCPCS: 36415; 80053; 80061

== ENCOUNTER 2023-07-04 14:43 | Outpatient (OUT) | payer OTHER, SELFPAY ==
--- NOTE | 2023-07-04 14:51 | MM_ITS ---
Patient Name: NU RIBEIRO MR#: [id number] : 1950 Exam Date: 07/04/2023 Ordering Doctor: DR ALLYSSA LOPEZ T[facility]ERMAN RADIOLOGY REPORT PROCEDURE: MM TOMOSYNTHESIS DIAGNOSTIC BI COMPARISON: MG MAMM ALISON DIAG W CAD, 07/03/2022. MG MAMM DIAGNOSTIC 3D ALISON CAD, 03/03/2021. MG MAMM ALISON DIAG W CAD, 03/02/2020. MAMMO LT DX, 05/29/2018. INDICATIONS: malignant neoplasm of upper-outer quadrant of left breast Calculator Name NCI Breast Cancer Risk Assessment Tool 5 Year Breast Cancer Risk Not Reported. Lifetime Breast Cancer Risk Not Reported. Personal Breast Cancer No Personal Ovarian Cancer No Treatments None Family Cancers None LOCATION: [facility] BREAST COMPOSITION: Scattered areas fibroglandular density. FINDINGS: DIAGNOSTIC CATEGORY 2--BENIGN FINDING: RIGHT BREAST: No significant suspicious finding. Scattered benign-appearing calcifications are present. No significant change has occurred. LEFT BREAST: No significant suspicious finding. Stable postoperative changes and scarring within the upper-outer quadrant. No significant change has occurred. RECOMMENDATIONS: ROUTINE MAMMOGRAM AND CLINICAL EVALUATION IN 12 MONTHS. PLEASE NOTE: A NORMAL MAMMOGRAM DOES NOT EXCLUDE THE POSSIBILITY OF BREAST CANCER. A CLINICALLY SUSPICIOUS PALPABLE LUMP SHOULD BE BIOPSIED. Dictated by: Waldemar Mitchell M.D. on 07/04/2023 at 15:25 Approved by: Waldemar Mitchell M.D. on 07/04/2023 at 15:29
--- OUTSIDE RECORDS SUMMARY | 2023-07-04 14:57 | XMS_ITS | CCD ---
Author Name Unknown Address [address] [place] [address] Organization [facility] Care Team Providers Care Decision Unit Rn Name Role Phone TRIPP PORTILLO Unavailable Unavailable LAZ PORTILLO Unavailable Unavailabl e TRIPP PORTILLO Unavailable Unavailable LAZ PORTILLO Unavailable Unavailabl Sulaiman Osorio Primary Care Provider [phone] Laz Portillo Primary Care Provider Laz Portillo [...] JOSESITO Admitting Unavailable BASURTO, JOSESITO Attending Unavailable [facility] Primary Care Unavailabl e GATO CANO Referring Unavailable [facility] Primary Care Unava ilable GATO CANO Referring Unavailable ALLYSSA LOPEZ Attending Unavailable [facility] Unava ilable [facility] Primary Care Unava ilable GATO CANO Referring Unavailable GATO CANO Attending Unavailable [facility] Primary Care Unava ilable Medications Current Medications [...] Drug Class(es) Dates Sig (Normalized) Sig (Original) [id number] 200 actuat albuterol 0.09 mg/actuat metered dose [...] in female, estrogen receptor positive (HCC) , custodial (current) use of aromatase inhibitors Take 1 [...] on above: INHALE 2 PUFFS BY MO RUST TWICE DAILY RINSE MOUTH AFTER USE hydroCHLOROthiazide [...] Basophils (Bld) [#/Vol] 0.05 10*3/uL Normal <0.11 [facility] Comment on above: Order Comment: Speci men Type: BLOOD SPECIMEN Ordering Facility: [facility] Address: [address] [place] [address] Performed By: #### 5 7021-8 #### [facility] CLIA [id number] [address] [place] [address]160 Basophils/100 WBC (Bld) 0.7 % Normal [facility] Comment on above: Order Comment: Speci men Type: BLOOD SPECIMEN Ordering Facility: [facility] Address: [address] [address] Performed By: #### 5 7021-8 #### [facility] CLIA [id number] [address] [place] [address] Differential cell count method Nom (Bld) Auto Normal [facility] Comment on above: Order Comment: Speci men Type: BLOOD SPECIMEN Ordering Facility: [facility] Address: [address] [address] Performed By: #### 5 7021-8 #### [facility] CLIA [id number] [address] [place] [address]131 Eosinophils (Bld) [#/Vol] 0.50 10*3/uL High <0.46 [facility] Comment on above: Order Comment: Speci men Type: BLOOD SPECIMEN Ordering Facility: [facility] Address: [address] [address] Performed By: #### 5 7021-8 #### [facility] CLIA [id number] [address] [place] [address]26 Eosinophils/100 WBC (Bld) 7.4 % Normal [facility] Comment on above: Order Comment: Speci men Type: BLOOD SPECIMEN Ordering Facility: [facility] Address: [address] [address] Performed By: #### 5 7021-8 #### [facility] CLIA [id number] [address] [place] [address] Erythrocyte distribution width (RBC) [Ratio] 12.8 % Normal 11.5-15.0 [facility] Comment on above: Order Comment: Speci men Type: BLOOD SPECIMEN Ordering Facility: [facility] Address: [address] [address] Performed By: #### 5 7021-8 #### [facility] CLIA [id number] [address] [place] [address] Hematocrit (Bld) [Volume fraction] 36.8 % Normal 36.0-46.0 [facility] Comment on above: Order Comment: Speci men Type: BLOOD SPECIMEN Ordering Facility: [facility] Address: [address] [place] [address] Performed By: #### 5 7021-8 #### [facility] CLIA [id number] [address] [place] [address] Hemoglobin (Bld) [Mass/Vol] 12.1 g/dL Normal 11.5-15.5 [facility] Comment on above: Order Comment: Speci men Type: BLOOD SPECIMEN Ordering Facility: [facility] Address: [address] [place] [address] Performed By: #### 5 7021-8 #### [facility] CLIA [id number] [address] [place] [address] Immature granulocytes (Bld) [#/Vol] 10*3/uL Normal <0.10 [facility] Comment on above: Order Comment: Speci men Type: BLOOD SPECIMEN Ordering Facility: [facility] Address: [address] [place] [address] Performed By: #### 5 7021-8 #### [facility] CLIA [id number] [address] [place] [address]30 Immature granulocytes/100 WBC (Bld) 0.1 % Normal [facility] Comment on above: Order Comment: Speci men Type: BLOOD SPECIMEN Ordering Facility: [facility] Address: [address] [place] [address] Performed By: #### 5 7021-8 #### [facility] CLIA [id number] [address] [place] [address] Lymphocytes (Bld) [#/Vol] 1.84 10*3/uL Normal 1.00-4.00 [facility] Comment on above: Order Comment: Speci men Type: BLOOD SPECIMEN Ordering Facility: [facility] Address: [address] [address] Performed By: #### 5 7021-8 #### [facility] CLIA [id number] [address] [place] [address] Lymphocytes/100 WBC (Bld) 27.3 % Normal [facility] Comment on above: Order Comment: Speci men Type: BLOOD SPECIMEN Ordering Facility: [facility] Address: [address] [address] Performed By: #### 5 7021-8 #### [facility] CLIA [id number] [address] [place] [address] 43698 MCH (RBC) [Entitic mass] 28.7 pg Normal 26.0-34.0 [facility] Comment on above: Order Comment: Speci men Type: BLOOD SPECIMEN Ordering Facility: [facility] Address: [address] [address] Performed By: #### 5 7021-8 #### [facility] CLIA [id number] [address] [place] [address] 83365 MCHC (RBC) [Mass/Vol] 32.9 g/dL Normal 30.5-36.0 [facility] Comment on above: Order Comment: Speci men Type: BLOOD SPECIMEN Ordering Facility: [facility] Address: [address] [address] Performed By: #### 5 7021-8 #### [facility] CLIA [id number] [address] [place] [address] 35355 MCV (RBC) [Entitic vol] 87.4 fL Normal 80.0-100.0 [facility] Comment on above: Order Comment: Speci men Type: BLOOD SPECIMEN Ordering Facility: [facility] Address: [address] [address] Performed By: #### 5 7021-8 #### [facility] CLIA [id number] [address] [place] [address]792 Monocytes (Bld) [#/Vol] 0.44 10*3/uL Normal <0.87 [facility] Comment on above: Order Comment: Speci men Type: BLOOD SPECIMEN Ordering Facility: [facility] Address: [address] [address] Performed By: #### 5 7021-8 #### [facility] CLIA [id number] [address] [place] [address] 32365 Monocytes/100 WBC (Bld) 6.5 % Normal [facility] Comment on above: Order Comment: Speci men Type: BLOOD SPECIMEN Ordering Facility: [facility] Address: [address] [address] Performed By: #### 5 7021-8 #### [facility] CLIA [id number] [address] [place] [address] 89226 Neutrophils (Bld) [#/Vol] 3.89 10*3/uL Normal 1.45-7.50 [facility] Comment on above: Order Comment: Speci men Type: BLOOD SPECIMEN Ordering Facility: [facility] Address: [address] [address] Performed By: #### 5 7021-8 #### [facility] CLIA [id number] [address] [place] [address] 15883 Neutrophils/100 WBC (Bld) 58.0 % Normal [facility] Comment on above: Order Comment: Speci men Type: BLOOD SPECIMEN Ordering Facility: [facility] Address: [address] Performed By: #### 5 7021-8 #### [facility] CLIA [id number] [address] [place] [address] 14219 Nucleated RBC (Bld) [#/Vol] 10*3/uL Normal <0.01 [facility] Comment on above: Order Comment: Speci men Type: BLOOD SPECIMEN Ordering Facility: [facility] Address: [address] Performed By: #### 5 7021-8 #### [facility] CLIA [id number] [address] [place] [address] Nucleated RBC/100 WBC (Bld) [Ratio] 0.0 /100 WBC Normal [facility] Comment on above: Order Comment: Speci men Type: BLOOD SPECIMEN Ordering Facility: [facility] Address: [address] [place] [address] Performed By: #### 5 7021-8 #### [facility] CLIA [id number] [address] [place] [address] 64571 Platelet mean volume (Bld) [Entitic vol] 9.6 fL Normal 9.0-12.7 [facility] Comment on above: Order Comment: Speci men Type: BLOOD SPECIMEN Ordering Facility: [facility] Address: [address] [place] [address] Performed By: #### 5 7021-8 #### [facility] CLIA [id number] [address] [place] [address] 34826 Platelets (Bld) [#/Vol] 226 10*3/uL Normal 150-400 [facility] Comment on above: Order Comment: Speci men Type: BLOOD SPECIMEN Ordering Facility: [facility] Address: [address] [place] [address] Performed By: #### 5 7021-8 #### [facility] CLIA [id number] [address] [place] [address] 96428 RBC (Bld) [#/Vol] 4.21 10*6/uL Normal 3.90-5.20 [facility] Comment on above: Order Comment: Speci men Type: BLOOD SPECIMEN Ordering Facility: [facility] Address: [address] [place] [address] Performed By: #### 5 7021-8 #### [facility] CLIA [id number] [address] [place] [address] 32173 WBC (Bld) [#/Vol] 6.73 10*3/uL Normal 3.70-11.00 [facility] Comment on above: Order Comment: Speci men Type: BLOOD SPECIMEN Ordering Facility: [facility] Address: [place] [address] Performed By: #### 5 7021-8 #### [facility] CLIA [id number] [address] [place] [address] CNOVSPon 01-11-2023 CNOVSP Visit (SP) Office (HEMASA) -------- NATASHA RIBEIRO ([id number]) 1950 F Date Time Provider Department 01/11/23 2:00 PM ALLYSSA LOPEZ During your visit today, we recorded the following information about you: Temperature Pulse Respiration Blood pressure 97.7 degrees 75/minute 16/minute 125/59 Weight Height 73.8 kg 1.613 m Allyssa Lopez APRN.NURSING SUPPORT WORKER 01/11/2023 3:21 PM Signed PATIENT NAME: Natasha [...] ductal carcinoma, largest invasive component 0.8 cm. ER/WA positive, HER-2 negative, Oncotype recurrence score low [...] as return. Continue Vit D and Calcium ahmo-jzd-svfwodc. INTERIM HISTORY: Updated Visit, January 11, 2023: [...] that she would lose coverage here at [facility]. Lost her last August 2021 He had [...] currently on arimidex. 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 This weighs heavily on her. Screening Mammography completed (more content not included)... Normal [facility] Comprehensive metabolic 2000 panelon 01-11-2023 Albumin [Mass/Vol] 4.4 g/dL Normal 3.9-4.[address] [facility] Comment on above: Order Comment: Vicky baron Type: BLOOD SPECIMEN Ordering Facility: [facility] Address: [address] [place] [address] Performed By: #### 2 4323-8 #### [facility] CLIA [id number] [address] [place] [address] 01544 ALP [Catalytic activity/Vol] 63 U/L Normal 34-123 [facility] Comment on above: Order Comment: Vicky baron Type: BLOOD SPECIMEN Ordering Facility: [facility] Address: [address] [place] [address] Performed By: #### 2 4323-8 #### [facility] CLIA [id number] [address] [place] [address] ALT [Catalytic activity/Vol] 17 U/L Normal 7-38 [facility] Comment on above: Order Comment: Speci men Type: BLOOD SPECIMEN Ordering Facility: [facility] Address: [address] [address] Performed By: #### 2 4323-8 #### [facility] CLIA [id number] [address] [place] [address] 65425 Anion gap [Moles/Vol] 9 mmol/L Normal 9-18 [facility] Comment on above: Order Comment: Speci men Type: BLOOD SPECIMEN Ordering Facility: [facility] Address: [address] [place] [address] Performed By: #### 2 4323-8 #### [facility] CLIA [id number] [address] [place] [address] 55450 AST [Catalytic activity/Vol] 17 U/L Normal 13-35 [facility] Comment on above: Order Comment: Speci men Type: BLOOD SPECIMEN Ordering Facility: [facility] Address: [address] [place] [address] Performed By: #### 2 4323-8 #### [facility] CLIA [id number] [address] [place] [address] 02696 Bilirubin [Mass/Vol] 1.0 mg/dL Normal 0.2-1.3 [facility] Comment on above: Order Comment: Speci men Type: BLOOD SPECIMEN Ordering Facility: [facility] Address: [address] [address] Performed By: #### 2 4323-8 #### [facility] CLIA [id number] [address] [place] [address] 65265 Calcium [Mass/Vol] 9.8 mg/dL Normal 8.5-10.[address] [facility] Comment on above: Order Comment: Speci men Type: BLOOD SPECIMEN Ordering Facility: [facility] Address: [address] [address] Performed By: #### 2 4323-8 #### [facility] CLIA [id number] [address] [place] [address] 36573 Chloride [Moles/Vol] 103 mmol/L Normal 97-105 [facility] Comment on above: Order Comment: Speci men Type: BLOOD SPECIMEN Ordering Facility: [facility] Address: [address] [address] Performed By: #### 2 4323-8 #### [facility] CLIA [id number] [address] [place] [address] 42969 CO2 [Moles/Vol] 28 mmol/L Normal 22-30 [facility] Comment on above: Order Comment: Speci men Type: BLOOD SPECIMEN Ordering Facility: [facility] Address: [address] [address] Performed By: #### 2 4323-8 #### [facility] CLIA [id number] [address] [place] [address] 41083 Creatinine [Mass/Vol] 0.80 mg/dL Normal 0.58-0.96 [facility] Comment on above: Order Comment: Speci men Type: BLOOD SPECIMEN Ordering Facility: [facility] Address: [address] [place] [address] Performed By: #### 2 4323-8 #### [facility] CLIA [id number] [address] [place] [address] 90518 Creatinine and Glomerular filtration rate.predicted panel (S/P/Bld) 77 mL/min/1.73m??? Normal >=60 [facility] Comment on above: Order Comment: Speci men Type: BLOOD SPECIMEN Ordering Facility: [facility] Address: [address] [place] [address] Result Comment: Dara mated Glomerular Filtration Rate [...] GFR. Performed By: #### 2 4323-8 #### [facility] CLIA [id number] [address] [place] [address] 09057 Glucose [Mass/Vol] 104 mg/dL High 74-[address] [facility] Comment on above: Order Comment: Vicky baron Type: BLOOD SPECIMEN Ordering Facility: [facility] Address: [address] [place], [place] [address] Result Comment: The [place] Diabetes Association (ADA) provides guidance for cutoff [...] Standards of Medical Care in Diabetes 2016, [place] Diabetes Association. Diabetes Care. 2016.39(Suppl 1). Performed By: #### 2 4323-8 #### [facility] CLIA [id number] [address] [place] [address] 04905 Potassium [Moles/Vol] 4.3 mmol/L Normal 3.7-5.1 [facility] Comment on above: Order Comment: Vicky baron Type: BLOOD SPECIMEN Ordering Facility: [facility] Address: [address] [id number] Performed By: #### 2 4323-8 #### [facility] CLIA [id number] [address] [place] [address] 68487 Protein [Mass/Vol] 6.7 g/dL Normal 6.3-8.[address] [facility] Comment on above: Order Comment: Vicky baron Type: BLOOD SPECIMEN Ordering Facility: [facility] Address: [address] [id number] Performed By: #### 2 4323-8 #### [facility] CLIA [id number] [address] [place] [address] 94211 Sodium [Moles/Vol] 140 mmol/L Normal 136-[address] [facility] Comment on above: Order Comment: Speci men Type: BLOOD SPECIMEN Ordering Facility: [facility] Address: [address] [address] Performed By: #### 2 4323-8 #### [facility] CLIA [id number] [address] [place], [place] [address] Urea nitrogen [Mass/Vol] 18 mg/dL Normal 7-21 [facility] Comment on above: Order Comment: Speci men Type: BLOOD SPECIMEN Ordering Facility: [facility] Address: [address] [place] [address] Performed By: #### 2 4323-8 #### [facility] CLIA [id number] [address] [place], [place] [address] CNOVSPon 07-20-2022 CNOVSP Visit (SP) Office (HE[place]AS[place]) -------- NATASHA RIBEIRO ([id number]) 1950 F Date Time Provider Department 07/20/22 [...] prior clinic note dated: March 23, 2021 ([facility]) PRIMARY CARE PHYSICIAN: Dr. 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 Lost her last August 2021 He had [...] currently on arimidex. 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 Normal [facility] Cristobal 07-17-2022 CNPN Telephone (HEMASA) -------- NATASHA RIBEIRO ([id number]) 1950 F Date Time Provider Department 07/17/22 GATO CANO SHAINAGIOVANNY During your visit today, we recorded the following information about you: Eve Yony 07/17/2022 3:36 PM Signed Orders are . Please sign and/or add labs. Eve Yony Allergies As of Date: 07/17/2022 (No Known Allergies) Date Reviewed: 06/19/2022 Reviewed by: Allyssa Lopez APRN.NURSING SUPPORT WORKER - Fully Assessed Reason for Visit: Lab Orders [0824] Primary Visit Diagnosis:Malignant neoplasm of upper-outer quadrant of left breast in female, estrogen receptor positive (HCC) [C50.412, Z17.0] Order(s):CBC + DIFF [SQCBCDIF] Order #: [id number] STANDING COMP METABOLIC PANEL [SQCMP] Order #: [id number] STANDING Prescriptions as of 07/21/2022 - ADVAIR [...] Status:Closed by GATO CANO on 07/21/22 Normal [facility] MG MAMM LUIS M DIAG W CADon MG MAMM LUIS M DIAG W CAD Patient: NU RIBEIRO Exam Date: 07/03/2022 : 1950 Gender:F Ordering : DR ALLYSSA LOPEZ [facility] Admission #: [id number] Family : Order #: [id number] CLICK HERE TO VIEW EXAM RADIOLOGY REPORT [...] Treatments None Family Cancers None LOCATION: [facility] BREAST COMPOSITION: Scattered areas fibroglandular density. FINDINGS: [...] Nixon M.D. on 07/03/2022 at 15:24 Normal [facility] 06-19-2022 [facility] Telephone (AquaBlok) -------- NATASHA RIBEIRO ([id number]) 1950 F Date Time Provider Department 06/19/22 VAN LIRIANO During your visit today, we recorded the following information about you: Van Liriano RN 06/19/2022 3:54 PM Signed Received call from pt requesting mammogram order be sent to [facility]. BANDAR: Order pending, please review and sign. TORREY Boothe APRN.BELEN 06/19/2022 4:12 PM Signed Signed. RODOLFO Reyes RN 06/20/2022 9:13 AM Signed Order faxed as requested. Pt notified. Van Liriano RN Allergies As of Date: 06/19/2022 (No Known Allergies) Date Reviewed: 06/19/2022 Reviewed by: Allyssa Lopez APRN.NURSING SUPPORT WORKER - Fully Assessed Reason for Visit: Orders [681] Primary Visit Diagnosis:Malignant neoplasm of upper-outer quadrant of left breast in female, estrogen receptor positive (HCC) [C50.412, Z17.0] Order(s):[facility] [[id number]] Order #: [id number] FUTURE Prescriptions as of 06/20/2022 - anastrozole [...] Status:Closed by VAN LIRIANO on 06/20/22 Normal [facility] COVID/FLU/RSV RT-PCRon 05-30 SARS-CoV-2 (COVID-19) RNA DARIUS+probe Ql (Unsp spec) Negative [facility] [employer] Other COVID/FLU/RSV RT-PCR Negative [facility] [employer] Other HEMOGLOBINon 02-20-2022 Hemoglobin (Bld) [Mass/Vol] 12.8 g/dL Normal 12.0-16.0 [facility] Comment on above: Performed By: #### H GB #### [facility] [address] [place] [address] Dr. Vinicius Serna XR FOOT LT MIN [...] by: KIM PHELAN Date: 2022-01-28 17:15 Normal [facility] Coding Summaryon 03-30-2021 Coding Summary HTMLBase 64 QcfrqmotNZj8kJz+PGhlYWQ+ LU8DEMEjG33tlSSmhB9FU7eJ TJ8PBVDPLBVUKN4VYY8shMX6 UKsiE7MhaoJs FxwocWDfAZ15LOu0TMR0tJoh KJbxbW3adMOrF9n1KpLrNU55 iR82LQomOHItOwP1MkPdhiel bWFy Z5ymUiUyyWEyTrc+PHRhYmxl IHdpZHRoPScxMDAlJyBzdHls VX5lWu1iITQlCZBdmOdzsMBt OiBj u0vzKEKxFDlsTY3onBzfA5Ek kMS6CNVgr4b0Zf27dXR+PHRk OSB0sIyfYWwsl609CzDfu4gv IDM3 vFLbHUayMIX8Z32fm2X6NFEe QTXqZWB9sVH4qW3hmDhmlift U3TajLThApA0YHH6nPUoaY4p bGln zjbiiG8jJrv+T68PSQ5DHZVI DU5OUsn3O0DvMrdwyPC+PC90 KNViYA42zQEtqXNvi3vxbEl7 JzEw NGAiMEZ2cEueRUunn1ZpBNOa Z30icOKxw8S7UPWepPseeQWn GmCuhZX4dL4lHIildpkje5fo dzsn Cgarh4fcch37tW95F55lJGij LVCzPQJ8SZMnSOUmiFbbnj8l iU3qHb5+PQzdb1ydz7hwnQv1 IjIw BDHeoiLqnRghOUH0h8NrBq43 U8AlhPllg6IlWlh0sw61lOHq g6O3kMG6RNymXYBatH7bAJjj ZnQ6 PKEcRgXiiI07uTGiJXenMk4e uWeizVtoQM2oNWXtuepoPYPv vH6bHLZfqCPinEyfXN5nIMUc bjtm p373DuOaLJZ3CULslPIvW6Hz vA4dSmFxWVDpNKPoN7MggJDw WUqtK210ENkzOeP2VLQghqFc Y2Fs FQJyvWdpEuV4n8S0Gz8Jz8Iw nwrlADQ0UIyhZSZzBjZ8PxVl YtF6E3HcMka9TAFxkAaePG1e J3Bh ZJKpmzuhuyajzPH3NMKfTRZi cJ67nPXqPNdlMb2lu5U2d367 NLZjHEAjaZ38Po5fjNfcLBVu dCBU wN8baxwau8lfpboeMiDzVJTp HKy2SXr7QAFgeRrrNzVnQSO4 XcY3HPI6xISdrH1woFntaxbo dG9w Oyc+R57ouG1cLHC2YWZ8yclv PVZqzsDuBL30GZ82O3IoNtlv dGFibGU+SCLkkkIgiUraOS2w YmFj n3zhw7IrGNfsV3WnMDYyLXal Wef1XRQaZKZ9hGE7aI4hEJEs PCkit9U2lMG9G0DrapTfin7c b2xs EXWeZCnxO18zhBDuu5S8MTJk vIR8ZOJhdYfeUqHkpA63Ksl+ XVZiqHkiq7LuOvqeb0rrt3bl dGg9 YxQeWSLsfzIsmDnwXDM7e6Kc Qu00R51pCSwfREUpQEKrMXMm PDMisJgkhm3ztP8zRm8+PGNv bCB3 sNP5dS7bJKOuWsM5CYjqQ453 XiYujSQyObqgv6byg6ezxEw0 WiMtLSTeziCeqQeiERF9b3Ac Lz48 U55sQLilZNRbMRBmRKSiOWFk vMefhn4vaD2jHj0+JR7rs5gk ar13hM12oHZ+NXJdYZI9pTqr PSdw BYZlkD7dUSpdNwB6FNOdRoEx mL11oLLiKHugXn2mvMwufRri SI0rLSPwovypj267BvWkd5ta IDEw wFRyQUquGCJ5U77vu5R4SDEv VKEkGME1bBM4zA1hrPkepbkj bGVmdDsgdmVydGljYWwtYWxp Z246 IHRvcDsnPlBhdGllbnQgTmFt JPr8S8LsYdt2HVMyiMnkGD2b gRPtRLsrBk7hhLplpAkxTI2n NTBp anomv015KeUlo7wwWPRuvQMf TEzvZVJ7S36jr1L4ERMfCGAn DPY2iTK7oJ5isBavukiqdEWa dDsg okUceWthTTvkKMxgT956XNXc dHpbGaGvuyBmYGClmJM4PQ84 KU27wVGia9E5wWQ5D9NmVULb bmct lstboYW4OKHmIHPmiW95Gl6u tOisUf3lWEBbQRY3ENRabLRc F3CtzR5aQqMjLFGsCUPzE1Nc eHQt RNfqI183UMglQnD9ZBSpluMu Z5CoLOMweRnyZkJ7z5B7Mv6O N6Y3SJ76HS87nDGzw5T2zKN5 J3Bh EMPckmscimhcqCB8EGMsOWOt bY33Eg8abPwnQt5xKSMuKED7 XUGenKJcS9KmlA2dEbIuWDTy MDAw D0NafJFfNIvxE543SFtsLxM7 NFEgdcWeG8YgKNWxlLojOtD9 o1H3Na1FVVn6KO14EL47oWMc c3R5 lJQ6J5JfJTEfsluzkcvuoRU4 TEPfSDSsgT88Uu6hvGbhNf9l WDGaFIE6NJVilLErM2IkcD5v OiAj WSHsEMRkO8LhzLWgITdyZ325 TMclZmO7KHEussZoG3RwJYDw rMqfXaM3x9D0Gb9YDMQcRL73 IFR5 gUO6ZF89WW11T7LzNrpfzLGj bGU+PHRhYmxlIHdpZHRoPScx DWWlKlDekUsbJU8uPn8aZHDz LWNv mHqpaCBpTlKbs7hmIBZdYWsq MJ9inDehA3CmgAV0NVEbk7k1 Jx47D52iJ2PyoHM+PGNvbCB3 aWR0 iC3fXpCwRtS8WSlpI468XrSi qZIlQprup3pds3vxdVf2SgP4 FSGndwUyuZqeVCZ8p0YwHo22 Y29s IHdpZHRoPSIxNSUiIHZhbGln vj6omH6gBj6+NTCclNP5sDY9 yZ4iLqXmMpM0AQcbR377UsLo cCIv Kyxsf1wum9nmtPx8ExBrBIAy cqNsdFjtGPU6c1BjAj07B0Jp tIchg5DoOtd9qj23vPZkj3D3 bGU9 K8AwFTBwpdokqSJviVyqTJ3m RXZmhlutVEXchH9dEFHaG8i5 FdGhCjL8LWevZ6KxacL4IXIx cHQg JMriKDE0T62et5N8COPfJUSa OLU6yNG7hS4hbWvnhrwyfRAa dTvsitXhdLodKWmhZRcmX765 IHRv jCqaZMIgtY5wDPPopCDgvFzu OS0gIMZoroqwYldJNvBZGVVR RNQNUNPQCT9WCDHDEM42WZ41 dGQg y4S8xUZ5J6NbCPIjowvipmak eRM0BWSaANPnkA37sIOwHHvv Wn6cb9D2i754UMTjWOPmmI00 Zm9u jVkuZSVqeNWSkV6nmiujr4bn mfphPaPzGAErLYy0HAx3FPYv uKsoTyPwEKS1OoI5SGX9uCEl bC1h mTvrrsovoT8ePyw+MTAvMTIv YQs8AHkwcIU+XRTaMAM1wAoo XLffFKWesU4fUNGnT7n0VwBx LjA1 XBskR1UcFTPrekevJh92lT9h AwLnFlF9EFuoN9TwnnP3ASBy qWOlILapYGI4I61kx4J8RJNc MDAw FKL5eKQ3bB8emSxeduiahNWi yIwhjfNbcRkiPHyeQXrhM160 IINdxCxcEaexIWdiQZDuZH56 ZD48 hLSyf6I6kYB1F0GoVPGgdtgg ginggLM2WBBwSEInvS70gASb ZRruSj7hk9M7v936XRMmJPGb aW47 Lv5gwVqfWVQsvJWXpW2npoft d7hwhqboOeHbZDWuNGh3EBy2 DYCghHxaLuDdSOS2CnK0ELD6 aWNh pE5syTpfrryxoS3iEqu+RkVN VUhGEZ11NG90rTDuw5B8cRK4 G9GxBGKgwwmejlnxwXO9XYOx MDUw kU72sHJyGIadNf9nh4I1i816 RBSgJZWsyF89Zx5jyOymADPp oYVBfG0elrcll9ybobenAiTi MDAw QZo3FYn8SCNuqZhhXeKfUYT7 UvF8WSA4kNUzhL6pyBrbypyq fX5cRgq+BH7hsfttujB0ZF62 ZD48 G4GnSsnyaJGqcFU+PHRhYmxl IHdpZHRoPScxMDAlJyBzdHls FL7nZl5jYFCuZQKidXaqkLCc OiBj m2zaYGQnZCihML8tsLonD8Kc hBT2NLEul6k1Sh96B23uZ7Fj dXA+SMSdiRQ2eQP1nM6nXqEz IiB2 YIjhR837SrDlbMNtYpnsq9mo l1vfoQb0XoXtJIXqgoQqwCnm SFJ0k6KqYk62C00qCImuOOKl PSIy SBQaQJVycEqgtv2dxX7uNk6+ MBTtfGM5iJU7gH9jPxYsFkR1 WYexH024OaMreXXuCyeuZ15k Z3Jv dXA+KNNjThy8DIAicVqyCH7n wQKcSObiCv1hYQV0QjJePhMj ERccR9GaZOHrwnqixtvqwNF3 IDAu ZMCzdV52Je7zoFzcEo1xULQz IAO0SFQwnZIlP8IsmO2gNtYc JTHkLPMyP5XsjZPlQSosH170 IGxl KhW3UIXnjzLaR0QpIZAhbGlp OaO3e8B8Il0AlLfduUCeKB6d EiDoRPq4Y5MlBau3ZJQzvKhq ZT0n pWBcMPssGm9zoLccxOxyUW3r MHTfnzvoa808DgLze3vdXWXm mXUoADccQKL5A85yk1C0VTLy MDAw WFS6oSC1qV5zhHkmbuctuIAz kVbspbNtfQofGYduOLftA636 QZRekCiyRoDGXyp3Z8ZwDdp8 ZCBz nZsfLH0upQEpEEnnIu3txNtr wNmsYJ1dJRBrvctwp709PeZd u1jdSGEvgRPzYKhbOER8R97j b3I6 CFVpLDQeVMT5yQD6bY2xvRlg bjogbGVmdDsgdmVydGljYWwt YOdqS677AZNulXrsAp8AZnk5 L3Rk Afp6YSJccPgoME7dySDfDQso Xn5yuIsalNoeVQ2vEZDpkgbz d543LhBvn0dlWZUteFLsVSoa ZXM7 D77fy2C3UDCuHRNjCOP6pWP8 dY8nrIxkxendcERlrKcfmlLf vPdfJWywHBawP667IIGmaLoa PlBh eWVyOjwvdGQ+MY00bh62E3Fy RvzbLcf1JLUlULD6jIK7eE9x KGNqEWnje0S4jCD0D4GlblMu ci1j b2x (more content not included)... [facility] Coding Summary HTMLBase 64 TjuutwwbBTu1cFv+PGhlYWQ+ YG4QIHWjQ61ilMQucP2DX6yO YG2FQTDHCWUNDW8VXH8epHG5 NOnlU4DduaFt OwvvvLXeAB24BVu4UZV2qEve DQmzbV8qyZCaD8b4OmZsLQ38 mB39PEdyZLAfOrW2VrSrpurx bWFy Y2eeIwUthVIdVvo+PHRhYmxl IHdpZHRoPScxMDAlJyBzdHls LB5rIr4yDQIgOXObpJnmoEXq OiBj a5hlLSQoVJuqWT0tlIpvL1Mw gEZ1FJCet6f2On86bFC+PHRk DER2wJdxJImgv479BcPgn2ih IDM3 jGQzHPzrBXN4R15oh7M9WKZd JENiNVE2wLX1eQ1gvOmizpmv E4HrkXHpAjP4ZMW9tIThxN9o bGln tmoxnT0cIue+H54KPX1VNIWP LE3SBdv2K3FzTwawvJT+PC90 NAEnCJ74kLGgqCUhz8flgAu3 JzEw WFUvNZT4bMfaOOipg1PpWHPm H36omRBno2O5HKKwhUbecVZo CuLupAK7qO5cVDrtbtyit6su dzsn Hvxxg1tjxx31mY50R79zZOrw WYEvHHY7UHMmPBDnyDbtpx4l nH6wHv5+HJlna4tnz6hsuDv3 IjIw JHGukoVnjTqmAOR0b5QdFz15 K0GlhQtam1ZiKuj2ex73nXXu y3G1fRX9OCwiWHJdcI4gJNss ZnQ6 PXCyCqVphR45hSEnYTxlSt5z jSoyxWqnPN8aLFDqbncdBTPh sU1rUJGzuNYcjUcaMA5tSBIc bjtm d909TaWmSEI5RAWtiGIaK5Vj hP9kQpLsGEQmKCNeG0SgmLNr CEteA488DRpxCwW6GGPuokTm Y2Fs ZAAvkRhrGmT6i9B0Rv8Ys7Ks rxdwZYD0SEdcZIJtVpP7McSe NsX8X4IfKlz4QXJgbHafAJ3z J3Bh JDEbrbuhersilJZ7DBLdRDUr kF51eIHsFEjmEm7cx1Z9v176 AUKvWDEkmQ85Dp4txVdvWJVc dCBU oY1ggnyfm8dvxphsJdOjQWQa GVw6BCp0YFMbyVrnNfCeCSG5 PcN6XCE0yIYkyT5jvRlueuif dG9w Oyc+H86fdG5rRTB4TSY0xjqu AOPjhxRgRA33UO74V4PjFnud dGFibGU+OUPwqlRueYpuYR8z YmFj v2pgv0GtYZnlX4DiYULcCTtw Fbs4AMQnHJP0iVO4jV5lKLVo VIksn9D0mLI6R7XizoJnzp5v b2xs OWAdAXdeQ87paNQif4U7SDGh iED2IMJgbEgjNhIzoX60Qsx+ ARInxNwbx0RuNkuel9umi9sa dGg9 VyMiURBfwsNjbAvtJMP5g3To Hw14K28bXIycBBAyNPXmOBGu IAAgsRopqm5uwK4bQs0+PGNv bCB3 oFU9kN0lDNSyMnS7KLvxX009 BrHwxCZnJffow9pfr3jfaAl9 WaXjMGRpueThwXbjBVM4x5Fb Lz48 A94rWVxnVAMlTJKdCKGjBLGi sStalb5baF5uEx1+CX6zz9pn gs31dI37wAN+AWMuKQB9rAjc PSdw MLJawF2uPUlsIfQ1KXBpFtPn mW28tOJmHWdmNf4ukDpzxGpx PW0vBKWzvrcnm836QcXof6gt IDEw sOWjYQmlPFJ6T84vn3Z5YIJw FFJiZFY9oJC9tW7opMfessff bGVmdDsgdmVydGljYWwtYWxp Z246 IHRvcDsnPlBhdGllbnQgTmFt BHx6W5StBjk3WGDqdNndOL4i oIAvFToeRn2lkAlmgSxvHH4w NTBp mzwod779FwIkr5igUXSsjSIu GBoqHHF9D58do0H8DEVcSGXj SKQ2lVJ4eK2exPejpwzowHTy dDsg yeEbwGffKAccVIqaO925EJUo zKbyUySwunWaBUUyjJA6SZ65 XT34lXSaw6O4wYY1S6AoJLNd bmct bywylID4HBPuFCCnnD21Po9k hFtrHn6dLFGyYCP9RSZreBIg V8AiqK9vPhFlELUuGRKxY0Oz eHQt ONtcC994CWcpToX5ORTltjOi P3ElLLYvwWonJlV4t5F1Xd7Z P0U9UY07SF10cTLfb1V1pLU8 J3Bh RVPjtezugfxpzEE0IUXsRAKr sG75Dl7wnSgwUt8yIJPjZBU1 TOBxvFVlI9JyeE8qSwHyYYKo MDAw I1IwqTSpYZprY982NGceHfU1 WIZblpAaF8QqBCSddLllQlH2 v3S7Oq7FPNo1XN05CX91jFDk c3R5 eQG5F6TtUKMgzcslswpkpUM2 DUEvNQYusC70Yo9ikLlmTd0v YKLmOXO8MBNynQDlL7MagT6b OiAj TVUeIZPuN7RxoLDdSGpbL567 YFeuMnS5SGVvqiPgX9MmJMOz bZfrVtB0t4G0Jq1TUOFhTO14 IFR5 rLI0XD10ED14D4KoVtcicVYm bGU+PHRhYmxlIHdpZHRoPScx HGEsQxEsfQhfNL4lRz9wLJIn LWNv rIyirTEkTcCoa9joIJNjTAam EB5kiSoiT2TuwVT1QZBey5w3 Nw55Q56aL2OseWE+PGNvbCB3 aWR0 vY0zWcBpYcL8KMspJ216OcXe uZWmKgmhq3cys6djhRk5WjL7 QVEnvmQxjFypUVZ2t3OvFu25 Y29s IHdpZHRoPSIxNSUiIHZhbGln ej5tgZ8nFs0+HFYquLQ1aVY1 sH2pVrVhCzS0HCqhC050HdIx cCIv Qzaon7kok4mvrLr3KsNjMTNt irLqtQnxITU3n0NsVq03H2Tr eXjvy2UdPjs3wi09uGTjl2K6 bGU9 K8HiQCWjmcameMQnrIqiBN2o CDZzustuKNYqtT5cEDCtL3q8 JzDmVlD1UEhzW0UbamM4REEy cHQg HQfzUUE5S90rr3F2PJSyAMAq ZNP2bKV8wG7vnRfgkgljcQPo xTchsmExuJijAWleWRrpX620 IHRv zDriCEIwxN0bOCKkfKTjdLjy NQ6bBTLbxlquZdoTExHPSIJY UUAXCUBNBV6AQQBKZU36CA06 dGQg u2K0yNR2G4WrHZSxeqclcave pED1NYUrZXQzjG07gFIkBYet Gy5ep4F1a633VRShHOYchQ56 Zm9u hOcuXWEjpIULyX4xrerzs0ly biglVgZuOXKwNNx4WEy6EDKo xXadUnUcUHH1ZqJ3LPA3uNWm bC1h pMhcxjprsS2bTdv+MTAvMTIv ZNo5KNdwsPP+VZFoZPB0oXwu YLzyUVKrdJ7qILEbW7g9BnAq LjA1 KWesU1TnQVDdiepwVz64gF9w OaGoPeS2QWtiS1PagxL0IPJx cYLkUYaiPSS5D68ww7X6ZEYk MDAw CHT8vIZ0hC5qrXgwrcbykRIi oFyagsSpvOodWJzzMExmG095 WWGimZhnGuknZJvgFDPaKV78 ZD48 gFWdg5Q9nKF8Q6HmFRMvgayj yinuiXD4GYFpUHHmxH62dAXb DLbjUb8ri5F1c457GRYnCYJz aW47 Ei4kfAiaRYEbwHMOtZ4hrgwo v3wuuvdfLoRoQWWfWXt9MMt9 CJXliSbzJmMuZBE0KdI1HLQ5 aWNh yC0ywBoxaoroeI2oWnr+RkVN NNbRNV35CO23oJJtv6W9mYX6 G7YvLKHrrfqwhhitwLP8ECAz MDUw oA81lGGmFQfwGy1gl6R9v610 NWNcMACtbE30Yo0fpMzjVZAt cZNYaI0pvyodv2fsrezlFaOs MDAw CDb1DTx5ZTXyxLdfOtEiGEJ9 ScP1JSN6nIJgaN8zoYjhaxht cV5wAcl+BX8xdfntiwT1ML08 ZD48 X1UqMsfvsBDhmNW+PHRhYmxl IHdpZHRoPScxMDAlJyBzdHls EL0nCp7rENUdVFGsoInhkJDd OiBj g2dlCYVgTWgkNX1buOzaQ7Tr gGQ6QNCug4u0Fg26R66qA6Vb dXA+IKJcdZS1fXI1rD5bLhXh IiB2 VUhuD411VuVhcXSiUgdwp1zc z0alqWf8YlDfYLDhmjMazGgq VQK0u8GwWj75Z92hUNwhADUp PSIy QNCbEZLebWfqvw2bkS4bYq7+ YYQjiLS3rLA8rN7eWpSlNjL8 XOkzR832KkPtqUWxUsloZ28s Z3Jv dXA+ZKRfOox4XLNqvWadUM3c yAXaKFzkYw9bDXT5UaDoQrSd MYwjB0KxEZOeidysqupnuAE4 IDAu GZWxiV93Aj6meTkeNh4fYIRz HMY5GMRsfBAbK3IvgQ1fDhEz XWWvDLZeN8ZvwGGkUKvxX530 IGxl JeF1GGArjdDqQ5LbQDOjoTbq WfT7v8N6Am4SyPczsVYjXZ5s LgQbQEs3R6CzSvg6DNIgtVng ZT0n qHCePMcmDf3uuFcsyYybNH6z VZCgqqkme175ZvKpl0sqTKWj fSXxGNxoFIS5P94ee1C5WCSw MDAw PLC9dNI0rA2lbJotvjxpjPXk gZoejaSsjKgjBAswWHgjZ084 IHVpmLudQqBCRzc4X3PpHyr7 ZCBz hNswUF8nnLNcIHfmKv4ncTng uKztKY6gNDYoiunjc823XgTl s4upXFVfhNBiRCrdAGH3O96w b3I6 ADWoQOOiJPW1uCP1kT3ghIiz bjogbGVmdDsgdmVydGljYWwt KFmcG286PWBcvRfrEn2LXxm1 L3Rk Vtr2WCDxcVyqZX4pcVJnSEep Hr4fkAemmIecHP0gJQIthyjm e266ErQdm1dvVOJpcEPkBAcs ZXM7 U90li9C2SDFbQHToIAN4iFO4 wP9elEbkvjuvbAWjpAfnhfTo sWllEJovOHsgV906QARhdZit PlBh eWVyOjwvdGQ+IE17pf44W3To QfcpIid8XOQcCCY6kII5lZ7e QKHxEEjis0A6gFZ9F2SmdfCb ci1j b2x (more content not included)... [facility] Coding Summary HTMLBase 64 LtqxcjiiFRt3uIu+PGhlYWQ+ RX2TRQRjG59blZRqpK0MB8wQ MX9CTNALGVHOUE6WIQ0tjXO6 RTqeE1GvaxXs DxbtwHWgPO05GGa7FOS4kYyq ECcquI4yvOJaZ0j0HsLwCD82 nW45RVhoSYOvVvE0CiUwachv bWFy B6zjKuHvwRThUqn+PHRhYmxl IHdpZHRoPScxMDAlJyBzdHls BW1dBd8rGJWzGBAidZixdLBy OiBj a2lwRCQaRMcpUJ3suHsuX6Pq lAJ1VLCas9k3Jc22iQA+PHRk QXY8jEwtCYkra971AqPmt6ne IDM3 xXSvDDgpDGI1Z00rj3E8OUUx AUIvBIK5hRS9fT6gbUgzenif O3XhdWDaYqS0NKS1jUBhbN0c bGln sbbrgA2sAza+L52KYU1PTVFC HD0GMea2R6MaWeucuIL+PC90 JGCnKD36tSXleMJaa1obxRm3 JzEw BMOqCRJ7nKbhQXpxl4BhRQWg X67mkQFwp9O7ZJDkgWnaxKHf YhUkaYY0fY4yWMsromxjx1da dzsn Esalt6lwys10bX51Y27yALqf ODWiWBQ9KAJiUCKcnOfsbq9l pN3rJl4+SRxgd0qkp4omkZg2 IjIw RZQtcfXobIrbAOJ6v8NlIn50 V9UsyZbet6EmYts2px01uAFc l9J5lAC1WBrcDRRmeN9fMBuh ZnQ6 RRRuXwXhmT16eZLsHVdmBa8q oGhhdMvuUX3xPJHxrrwdNDWr iP0eYVOfrAAunDqoPA4cHQIc bjtm k912UwTbSDK2TIKthNKiC7Nu nP5pFpDkLWIgYCKcH2EctEAd FYfcS877EZbgBsJ9XAZepkFn Y2Fs UCPkbVfqHwL1w9S2Ck8Ja2Oz umblFKB8CIlrGZTqAhR4DdHd AhU1N9GwLdg6UHLpbKctBF2y J3Bh LTGoypekjsazeNK8SKWiHNNg fY00pKEbJKkrHo8yv6Z8q366 ZQEfUGTaxX79Nn0yiEygLOIi dCBU gP5bpezpw7bmeugtCdLaDNJq WTd7ZBx7SLFlhPytQrRwUPV7 TwA1FHX2eYLbwD3eoGvrkadg dG9w Oyc+N85gkC6zVHN5VUS9pxpc XQOjafNjKB95KE37Z5LaRryp dGFibGU+LXNfemVxhGlkPY5y YmFj q3pda4WiVVfvL8QmDQYnHRnd Dnw2AZCeGFI6sBT1hZ1nOHGy JYtji1A1iHG8M7OlqwXizx6p b2xs YGCtQVhgV74akHYzp5U1FOQc aXW7GFHszLwmGpBssN27Ylc+ YNHzjJuvj6LoZyeen0iaa6sk dGg9 UqGhQAIpduScxXyrKQC7j2Qh Gs88O56kXBqpMRAaUCMaINSc IYFnqKcboi1riF8zSo6+PGNv bCB3 iDD5mS9xWCOdMvD3YQniY133 HsTwiUKfNconr8iqd8wtmBa0 SeOvNDWucsEraBigEHU7j5Vw Lz48 O21dUXabPYTkRZFzXMRiWQIw yYwgyp5psE6cYg0+MQ7ie2ev ij33fY11qJZ+AIZgWAY3gDal PSdw RGRsxM7hQTdkDtP3OZWzUuOx cV30lHSaKUhsSr5hsAguuPfu WN9qANMxbwcot920OtOvy4mr IDEw vUXwESijSMI9I47fr2D0LUAj GMPaRZJ4kNF2gP3ipChvfsfh bGVmdDsgdmVydGljYWwtYWxp Z246 IHRvcDsnPlBhdGllbnQgTmFt DFt9J1FoSgk4ZMSvmSjdJA3a nTNeZWuvWn3dcMbdjCwgOP2f NTBp wlmlh812SpTty1lbWQDkiDFu JKihBCD2Z11ul5G9SVAuSVGr EMZ1rML5rH9siCmzezqfrKMj dDsg kwKqpBfjNRacILrhU715KUTc pKjfQvXpreCoJUZtvBI2BZ76 RO34oBKjh6B2jNT4I4SuHUUj bmct dwfvsRW4NKIsUTPukT32Iv3l tRlwDn1cHTJwECY5BXZoiGVt J3XabC1dUeXwMQUcXXXnG9Cl eHQt KTvdW343XAzmDgR5JUYevsNm F2DmROLwuVsyYgJ4j0X4Je1H C2X9TP91FF63aJZnk5U0iYX4 J3Bh GGYekxhmjiisrBN0LVMsLTFt aU88Hg2otPweWg2rLCSrCPC8 FKOheZDiT9GrtB1aKwRqDHMl MDAw R9DfsERdLNqgH886KHysGtT6 SACulxSpM6GlHZXqqNnrDbV0 u9M5Wf6CBVc3LU36MN15uZUe c3R5 iGO7Y6FeOHWaugfignecfIM9 VNNjEDJbkZ58Nv0daJekIo3f OQNqGIZ8JXJlxTGmJ4XyyX8u OiAj BPKoMCXeX6IglZHyZGneW784 NFmjRmM5USPlteGdK2KrNGKk vItqTeI1v8S9Yy3CQQBvQQ59 IFR5 zHL9QS89XG29W8MgYuqgpNRd bGU+PHRhYmxlIHdpZHRoPScx ICHmGnYoaRfwFN8aSp5hWOTt LWNv bZlphAAlUwNyo4tnQDQsUHxj YB9oyZtrU5ZnlYD1KWOnf2m9 Mw41N44tT0JccXH+PGNvbCB3 aWR0 kZ3bOiMqZsI8FQfuL585WqDz iRWlFfrqq7eaq8vstHe3FwF8 WUBavlVpwSdqIEL4a3UqYw91 Y29s IHdpZHRoPSIxNSUiIHZhbGln pz6onR2zVj5+FLHxvVH7aPE3 nD8sMrGfQbS2YGlrX433QdMf cCIv Peaxy2anp4nvrYd2ZtXkCMEr knWkkJweIPA4q4KgBi30O8Dn mRgwu8WtGqn0sh89yEExt3W7 bGU9 Z4WyMMHoejnsnMCrqCrsPT1f NAJvauxnGUJhbT7eBOBrX3i6 XkXgAcH2AJjuX3BgnvF5EDFi cHQg AAdyQWJ2U43ll4V3CXAbKHYz QAL2vSP5yF9bqHzcjdknsENr gVxphhMuwMkgKJsnIVlzC077 IHRv qTjsEKMigU3eRQYhxCBjzPjt KF7bRNSzpzyuEbyBIrIJIZOR VYTYTZUFQV2SXYGKUH97GG14 dGQg o7D3mGZ4S3SaEUFuhcfpilho eTH0OORsDREreZ78zKQsGNqq Ll1pj6G4v056RGUjNNEvxD78 Zm9u gPjkFWCfuIJLkK7uaqduk0ra xhchSsRbSHDlUVu6ZEi4HWKh sXotCmIgKPZ1BrO0FTT2gOMg bC1h tBcgbflqzA8uWeb+MTAvMTIv GGi3QTlmoUH+QULoCYJ7zWdj JGxxWXSlnV2hXZVgF5h8LlAp LjA1 HGaiC0TfBKFgmizmZx25kC8v XkHlXrL9IXcvD7KrspY6EZVb yLUtKSiuUPW2W70ow0G5WTPe MDAw SRJ2jKB5kW4evAccmrgmcODj pGmlpjZbxOiqESwuXFzvN461 IQCkmBbvNnfxTUvlPRXcTV39 ZD48 sORjl2A6oGO0A7HfYBNeburn nfuyjKP1CNMcGNXxcI23wXGr WSctZe8vv3T9i630UKLvXXZa aW47 Bh7ueXaoRHUjuESLrO0notrq l2mrdfshZdGyMYLjUBx0QXq8 VONtuQdsCaDlAWI2PoU0YAT6 aWNh wS4zuRpoqqdqrK3sCul+RkVN SXoQEO19OI01nCLyd0S3lKL1 Z0JiLIMguadzlwpeePC6RBNh MDUw sL76iGBpCWlwEj0nv0O7b776 OZJmIWGonB01Hf2ppUluEIYy tZLRwT7vogjoy8nugmblSyEd MDAw CEz7JPo7VCYrjIapKqJvUQJ5 NmQ2MDC8mYNuyR9lzSdgdpmi jZ0yYgj+PJ6rbtcympV5GE15 ZD48 Z6TkZtzvaHJqkYI+PHRhYmxl IHdpZHRoPScxMDAlJyBzdHls LA8iOx9kIBTiEUBbzEkvuZWn OiBj e5mcWCPmUJdkVO6wpMenU7Nz gZP8MDKxb6h8Ur25P19bQ9Wp dXA+YIObnKB8rJX1wH9vPyKb IiB2 MLqtN767OkMvmXUsRfnyt3lx z0kebYx7KaLdFXUufiUnzJsj HYV3k6JpIy50A68bRTugYYBq PSIy QCOvFRLwtHjuqj3olN8dOb8+ CRPoeWC2iDD2dL0bPyHmByS1 YYleZ582MjFviINlCzyuF41g Z3Jv dXA+HKPvFgo4IBKkbKbcIC8t cKVjFGuyUu5pZOT5KtYoJpYm NDdfR2OyBPTosdxcaggvjNL3 IDAu UNCwhU15Id3qrXdePo4lRAHh JHX2YJHipSZoZ4ClwE7fZwAs EPYrZLZdS3YijYNqKKrhN022 IGxl NrD7QUJzxpKiB1RiKTCdiGpj WaZ8m9J0Wh2TlGpttERwNQ0j EpJhSBc6Z4KhWkv0VZHylWtf ZT0n wSZuUKijXw5bbRofiNukXK7u MVPqvezlb824QdZmu0twEQBf uFKpXZwaEYI1M74qs1A8AHHe MDAw HMV5qEM6nR9dnXdfsnixdCCp fHouwaWbdYrvWVreCKqwQ350 OQWwqQgoKmGYJxd7B2VqXpp5 ZCBz hYgvUP5cfGMcBOgnBq3lqLca dAyhPL0dJKFazssrs298EeOj c9vbLKSabANwHHopXNS0W98h b3I6 CFUcCOVzWOK8rEV8lP3oaIou bjogbGVmdDsgdmVydGljYWwt DYuzT411TVSaaFtgDo1TQwv5 L3Rk Aoh8SAUuwHidPH4xpNMyXDts Mk7khUjlwYicPF7bBRWtmcdq x530KdJhd2ncUMUdlQXsUKue ZXM7 J07ea3V4GJCcOLBcYLT0eSI9 lV0ylJsswvmohUIhsQbrwrRe bXisXKmaYSskP020SMXxbNoo PlBh eWVyOjwvdGQ+GM61kp14Z0Xs MzeuTjd9LCRjTQT0hEJ5wJ0u QIYfQEwbw4P8qEJ8E0OdppLe ci1j b2x (more content not included)... [facility] CT PE Chest w/ Contraston [...] Scot Kaba MD 03/21/21 11:01 p Technologist: [facility] Consent Formson 03-22-2021 Consent Forms [id number] TIFF [facility] ED Clinical Summaryon 2020 ED Clinical Summary [facility] - Emergency Department [address] [place], [place] [id number] ED Clinical Summary PERSON INFORMATION Name: NU RIBEIRO Age: 71 Years Sex: FEMALE : 1950 MRN: Acct#: Visit Reason: Shortness of breath; SOB Arrival: 03/21/2021 19:58:39 Discharge: 03/21/2021 23:34:00 LOS: 000 03:36 Check In: 03/21/2021 19:58:39 Checkout:03/21/2021 23:34:00 Address: [facility] [address] PCP: Nicholas SNELL, Laz Romero PROVIDER INFORMATION [...] distress, Well-ap (more content not included)... Normal [facility] ED Patient Summaryon 021 ED Patient Summary [facility] - Emergency Department [address] [place], [place] [id number] PATIENT DISCHARGE INSTRUCTIONS Patient Information Name: NU RIBEIRO Age: 71 Years Date of : 1950 Reason For Visit: Shortness of breath; SOB Arrival Time: 03/21/2021 19:58:39 Primary Care Physician: Laz Portillo MD Attending Physician: Marisol Leigh D.O. Comment: Visit Diagnosis: Diagnoses This Visit Asthma exacerbation (J45.901) Shortness of breath ([id number]) Prescription Information: If you have been given a prescription for narcotics, seek immediate medical attention if you have any difficulty breathing or any sudden status changes such as confusion and sleepiness. If you or anyone you know is experiencing suicidal thoughts, mental health, alcohol and/or drug addiction problems; contact the [facility] 03/12 Crisis Hotline -Text 4HVCG oy 059080. If you received any narcotics, sedation, or [...] With: Address: When: Laz Portillo [address] [place] [address] Business (1) Within 3 to 5 days Medication Information: The exam and treatment you received today in the [facility] Emergency Department were for an urgent problem and are not intended as complete care. It is important for you to follow up with a doctor, nurse practitioner, or physician?s medical clerical assistant for ongoing care. If your symptoms [...] so we can reach you if necessary. [facility] Emergency [facility] has provided you with a complete list of medications post discharge. Please inform your primary school teacher librarian/provider of your visit and for further instruction on these medications. Any specific questions regarding your chronic medications and dosages should be discussed with your primary care physician(s) and/or pharmacist. New Medications [facility] [facility], [address] [place], [place] [id number], [phone] albuterol (Albuterol (Eqv-ProAir HFA) 90 mcg/inh inhalation [...] these instructions at home: Medicines ? Take uvsk-zsg-svbfqwe and prescription medicines only as told by your doctor. ? If you need to use an inhaler or nebulize (more content not included)... Normal [facility] Lactic Acidon 03-22-2021 Lactic Acid 11.7 mg/dL Normal 4.5-19.8 [facility] Comment on above: Performed By: #### 2 [id number] ####[facility] (DEFAULT)[address] [place] [address] .Auto Diff 1on 03-21-2021 Auto [place] % 8 % Normal -12 [facility] Comment on above: Performed By: #### 5 [id number], [id number], [id number], 3751680, 4441834 ####[facility] (DEFAULT)[address] [place] [address]1691 Baso Abs# 0.0 x10 Normal 0.0-0.2 [facility] Comment on above: Performed By: #### 5 [id number], [id number], [id number], 5566047, 0569776 ####[facility] (DEFAULT)[address] [place] [address] Basophils/100 WBC (Bld) 0.4 % Normal 0.2-2.0 [facility] Comment on above: Performed By: #### 5 [id number], [id number], [id number], 2048189, 0303240 ####[facility] (DEFAULT)[address] [place] [address] Eos Abs# 0.5 x10 High 0.0-0.4 [facility] Comment on above: Performed By: #### 5 [id number], [id number], [id number], 0755559, 9533881 ####[facility] (DEFAULT)[address] [place] [address] 11502 Eosinophils/100 WBC (Bld) 7.0 % High 0.9-4.0 [facility] Comment on above: Performed By: #### 5 [id number], 10751214, [id number], 2386451, 7756477 ####[facility] (DEFAULT)[address] [place] [address] 94279 Lymph Abs# 2.3 x10 Normal 1.3-2.9 [facility] Comment on above: Performed By: #### 5 [id number], 01358197, [id number], 6396569, 7033034 ####[facility] (DEFAULT)[address] [place] [address] 70662 Lymphocytes/100 WBC (Bld) 31 % Normal 14-48 [facility] Comment on above: Performed By: #### 5 [id number], 14085073, 8921224560, 5205194, 6897289 ####[facility] (DEFAULT)[address] [place] [address] 18549 [place] Abs# 0.6 x10 Normal 0.0-0.8 [facility] Comment on above: Performed By: #### 5 [id number], 94554462, 8568875668, 2296861, 2600665 ####[facility] (DEFAULT)[address] [place] [address] 40725 Neut Abs# 4.0 x10 Normal 1.5-9.2 [facility] Comment on above: Performed By: #### 5 [id number], 04678532, 6370151209, 0608489, 0788298 ####[facility] (DEFAULT)[address] [place] [address] 45380 Neutrophils/100 WBC (Bld) 54 % Normal 44-88 [facility] Comment on above: Performed By: #### 5 [id number], 01655435, 9507482036, 1218855, 0542180 ####[facility] (DEFAULT)[address] [place] [address] CBC w/ Auto Diffon 1 Erythrocyte distribution width (RBC) [Ratio] 13.0 % Normal 11.5-15.0 [facility] Comment on above: Performed By: #### 5 [id number], 50501451, 4785297639, 6484185, 3702397 #### [facility] (DEFAULT) [address] [place] [address] Hematocrit (Bld) [Volume fraction] 38.1 % Normal 33.7-40.4 [facility] Comment on above: Performed By: #### 5 [id number], 41553558, 8633766934, 2915389, 4066434 #### [facility] (DEFAULT) [address] [place] [address] Hemoglobin (Bld) [Mass/Vol] 12.6 g/dL Normal 11.3-15.9 [facility] Comment on above: Performed By: #### 5 [id number], 45436038, 7363505668, 9551310, 2542729 #### [facility] (DEFAULT) [address] [place] [address] Instr WBC 7.5 x10 Invalid Interpretation Code [facility] Comment on above: Performed By: #### 5 [id number], 31011663, 0392700309, 2807205, 3575367 #### [facility] (DEFAULT) [address] [place] [address] Man Diff? Auto Normal [facility] Comment on above: Performed By: #### 5 [id number], 27062174, 7129910114, 1051260, 5277209 #### [facility] (DEFAULT) [address] [place] [address] MCH (RBC) [Entitic mass] 29 pg Normal 24-34 [facility] Comment on above: Performed By: #### 5 [id number], 32038641, 0905878694, 5991974, 5279239 #### [facility] (DEFAULT) [address] [place] [address] 87280 MCHC (RBC) [Mass/Vol] 33 g/dL Normal 26-37 [facility] Comment on above: Performed By: #### 5 [id number], 27492422, 4039087023, 1187677, 6236980 #### [facility] (DEFAULT) [address] [place] [address] 08612 MCV (RBC) [Entitic vol] 88 fL Normal 81-100 [facility] Comment on above: Performed By: #### 5 [id number], 49635385, 5438737322, 7388604, 8553876 #### [facility] (DEFAULT) [address] [place] [address] Platelet 225 x10 Normal 138-427 [facility] Comment on above: Performed By: #### 5 [id number], 59277650, 1839403188, 5305711, 8730489 #### [facility] (DEFAULT) [address] [place] [address] Platelet mean volume (Bld) [Entitic vol] 9.6 fL Normal 6.3-10.2 [facility] Comment on above: Performed By: #### 5 [id number], 77765294, 7770035932, 8750497, 7664927 #### [facility] (DEFAULT) [address] [place] [address] 18790 RBC 4.34 x10 Normal 3.70-5.30 [facility] Comment on above: Performed By: #### 5 [id number], 08848326, 7296153662, 2397906, 4793177 #### [facility] (DEFAULT) [address] [place] [address] 20303 WBC 7.5 x10 Normal 3.5-10.5 [facility] Comment on above: Performed By: #### 5 [id number], 37980644, 5048821590, 2534911, 9543668 #### [facility] (DEFAULT) [address] [place] [address] 55331 CMP Standardon 03-21-2021 eGFR Non AA >60 Invalid Interpretation Code [facility] Comment on above: Performed By: #### 5 [id number], 32498873, 3514421443, 9826636, 6227864 ####[facility] (DEFAULT)[address] [place] [address] 47214 eGFR AA >60 Invalid Interpretation Code [facility] Comment on above: Result Comment: Diamond Cutter feliz Kidney disease could be indicated at eGFRs of less than 60 ml/min/1.73m2. Kidney Failure is indicated at less than 15 ml/min/1.73m2 Performed By: #### 5 [id number], 68859110, 4548403967, 0406755, 8570636 ####[facility] (DEFAULT)[address] [place] [address] 22409 Albumin [Mass/Vol] 4.0 g/dL Normal 3.5-5.0 [facility] Comment on above: Performed By: #### 5 [id number], 99027630, 0600698444, 0206023, 4206763 ####[facility] (DEFAULT)[address] [place] [address] 53275 Albumin/Globulin [Mass ratio] 1.4 {ratio} Normal 1.4-2.6 [facility] Comment on above: Performed By: #### 5 [id number], 79637651, 4180860710, 9248574, 1016378 ####[facility] (DEFAULT)[address] [place] [address] 27543 Alk Phos 59 IU/L Normal 32-91 [facility] Comment on above: Performed By: #### 5 [id number], 81662847, 9113676213, 7263542, 3535167 ####[facility] (DEFAULT)[address] [place] [address] 11244 ALT [Catalytic activity/Vol] 15.0 U/L Normal 14.0-54.0 [facility] Comment on above: Performed By: #### 5 [id number], 48759158, 4801877883, 9071230, 0420761 ####[facility] (DEFAULT)[address] [place] [address] 15080 Anion gap [Moles/Vol] 11.0 mmol/L Normal 5.0-19.0 [facility] Comment on above: Performed By: #### 5 [id number], 89576969, 6915530807, 1164560, 7733253 ####[facility] (DEFAULT)[address] [place] [address] 04461 AST [Catalytic activity/Vol] 19 U/L Normal 15-41 [facility] Comment on above: Performed By: #### 5 [id number], 67603053, 3757117132, 8686601, 1692338 ####[facility] (DEFAULT)[address] [place] [address] 76251 Bili Total 0.8 mg/dL Normal 0.3-1.2 [facility] Comment on above: Performed By: #### 5 [id number], 72966833, 6805869270, 8251407, 5303657 ####[facility] (DEFAULT)[address] [place] [address] 98599 Calcium [Mass/Vol] 9.5 mg/dL Normal 8.9-10.3 [facility] Comment on above: Performed By: #### 5 [id number], [id number], [id number], [id number] ####[facility] (DEFAULT)[address] [place] [address] 37941 Chloride [Moles/Vol] 105 mmol/L Normal 101-111 [facility] Comment on above: Performed By: #### 5 [id number], [id number], [id number], [id number] ####[facility] (DEFAULT)[address] [place] [address] 20417 CO2 [Moles/Vol] 29 mmol/L Normal 21-32 [facility] Comment on above: Performed By: #### 5 [id number], [id number], [id number], [id number] ####[facility] (DEFAULT)[address] [place] [address] 89913 Creatinine [Mass/Vol] 0.70 mg/dL Normal 0.60-1.30 [facility] Comment on above: Performed By: #### 5 [id number], [id number], [id number], [id number] ####[facility] (DEFAULT)[address] [place] [address] 81373 Globulin (S) [Mass/Vol] 2.9 g/dL Normal 1.5-4.3 [facility] Comment on above: Performed By: #### 5 [id number], [id number], [id number], [id number] ####[facility] (DEFAULT)[address] [place] [address] 16912 Glucose [Mass/Vol] 87.0 mg/dL Normal 74.0-118.0 [facility] Comment on above: Performed By: #### 5 [id number], [id number], [id number], [id number], [id number] ####[facility] (DEFAULT)[address] [place] [address] 06747 Osmolality 283 mOsm/L Invalid Interpretation Code [facility] Comment on above: Performed By: #### 5 [id number], [id number], [id number], [id number] ####[facility] (DEFAULT)[address] [place] [address] 71381 Potassium [Moles/Vol] 3.8 mmol/L Normal 3.6-5.1 [facility] Comment on above: Performed By: #### 5 [id number], [id number], [id number], [id number], [id number] ####[facility] (DEFAULT)[address] [place] [address] 27651 Protein [Mass/Vol] 6.9 g/dL Normal 6.5-8.1 [facility] Comment on above: Performed By: #### 5 [id number], [id number], [id number], [id number], [id number] ####[facility] (DEFAULT)[address] [place] [address] 10787 Sodium [Moles/Vol] 141.0 mmol/L Normal 136.0-144.0 [facility] Comment on above: Performed By: #### 5 [id number], [id number], [id number], [id number], [id number] ####[facility] (DEFAULT)[address] [place] [address] Urea nitrogen [Mass/Vol] 19 mg/dL Normal 8-26 [facility] Comment on above: Performed By: #### 5 [id number], [id number], [id number], [id number], [id number] ####[facility] (DEFAULT)[address] [place] [address] Urea nitrogen/Creatinine [Mass ratio] 27.0 mg/mg High 4.6-16.2 [facility] Comment on above: Performed By: #### 5 [id number], [id number], [id number], [id number], [id number] ####[facility] (DEFAULT)[address] [place] [address] D-Dimeron 03-21-2021 D-Dimer 0.51 mg/L FEU High 0.19-0.50 [facility] Comment on above: Result Comment: Resu [...] Liver cirrhosis ? Performed By: #### 5 [id number], [id number], [id number], [id number], [id number] ####[facility] (DEFAULT)[address] [place] [address] 31597 ED Note - Physicianon 2020 ED Note [...] SARS-CoV-2 (COVID-19) PCR (more content not included)... [facility] ED Note-Nursingon 03-21-2021 ED Note-Nursing Pt states she feels better, less short of breath. Pt is currently resting on cart awaiting CT PE study. Normal [facility] ED Note-Nursing Pt arrives to ED [...] this time. Pt resting on cart. Normal [facility] TnI HSon 03-21-2021 Troponin I High Sensitivity 3 pg/mL Normal <=15 [facility] Comment on above: Result Comment: Male Baseline Delta 1Hr (Note pg/mL=ng/L) <20pg/mL 50-60% >20pg/mL 20% Female Baseline Delta 1Hr <15pg/mL 50-60% >15pg/mL 20% Other Baseline Delta 1Hr <18ng/mL 50-60% >18ng/mL 20% (Citizen Of [place] [employer] Guidelines December 2017) Performed By: #### 5 [id number], [id number], [id number], [id number], [id number] ####[facility] (DEFAULT)[address] [place] [address] XR Chest 1 View Frontalon XR Chest [...] Carmendonny on 11-29-2020 Folate 8.9 ng/mL >4.8 [employer] Work Phone: No Panel InformationOrdered By: Raul Swan on 11-29-2020 [employer] Work Phone: Vitamin [id number] By: Raul Swan on 11-29-2020 Cobalamin (Vitamin B12) [Mass/Vol] 753 pg/mL 232 - 1245 pg/mL [employer] Work Phone: CBC Auto DifferentialOrdered By: Laz Portillo on 09-20-2020 [employer] # 0.40 [employer] [facility] Work Phone: Absolute Immature Granulocyte NOT REPORTED [facility]: Absolute Lymph # 1.60 [employer] [facility] Work Phone: Absolute [place] # 0.30 [employer] [facility] Work Phone: Basophils (Bld) [#/Vol] 0.10 10*3/uL [facility] Work Phone: Basophils/100 WBC (Bld) 1 % 0 - 2 % [facility] Work Phone: Differential Type NOT REPORTED [facility] Work Phone: Eosinophils/100 WBC (Bld) 5 % High 0 - 4 % [facility] Work Phone: Hematocrit (Bld) [Volume fraction] 38.0 % 36 - 46 % [facility] Work Phone: Hemoglobin.gastrointe stinal spec 1 Ql (Stl) 12.1 g/dL 12.0 - 16.0 g/dL [facility] Work Phone: Immature Granulocytes NOT REPORTED 0 % [facility] Work Phone: Interpretation and review of laboratory results Abnormal [facility] Work Phone: Lymphocytes/100 WBC (Bld) 25 % 24 - 44 % [employer] Work Phone: MCH (RBC) [Entitic mass] 29.5 pg 26 - 34 pg [employer] Work Phone: MCHC (RBC) [Mass/Vol] 31.8 g/dL 31 - 3 7 g/dL [employer] Work Phone: MCV (RBC) [Entitic vol] 92.8 fL 80 - 100 fL [employer] Work Phone: Monocytes/100 WBC (Bld) 5 % 1 - 7 % [employer] Work Phone: NRBC Automated NOT REPORTED per 100 WBC [employer] Work Phone: Platelet distribution width (Bld) [Ratio] 14.1 % 11.5 - 14.9 % [employer] Work Phone: Platelet Estimate NOT REPORTED [employer] Work Phone: Platelet mean volume (Bld) [Entitic vol] 8.3 fL 6.0 - 12.0 fL [employer] Work Phone: Platelets (Bld) [#/Vol] 147 10*3/uL [employer] Phone: RBC (Bld) [#/Vol] 4.09 10*6/uL 4.0 - 5.2 m/uL [employer] Work Phone: RBC (Bld) [#/Vol] NOT REPORTED [employer] Work Phone: Segmented neutrophils/100 WBC (Bld) 64 % 36 - 66 % [employer] Work Phone: Segs Absolute 4.20 [employer] Work Phone: WBC (Bld) [#/Vol] 6.6 10*3/uL [employer] Work Phone: WBC (Bld) [#/Vol] NOT REPORTED [employer] Work Phone: Comprehensive Metabolic Pane lOrdered By: Laz Portillo on 09-20-2020 Albumin [Mass/Vol] 4.1 g/dL 3.5 - 5.2 g/dL [employer] Phone: Albumin/Globulin Ratio NOT REPORTED [employer] Phone: ALP (Bld) [Catalytic activity/Vol] 48 U/L 35 - 104 U/L [employer] Work Phone: ALT [Catalytic activity/Vol] 17 U/L 5 - 33 U/L [employer] Phone: Anion gap [Moles/Vol] 10 mmol/L 9 - 17 mmol/L [employer] Phone: AST [Catalytic activity/Vol] 25 U/L <32 [employer] Phone: Comment on above: SPECIMEN MODERATELY HEMOLYZED, RESULTS MAY BE ADVERSELY AFFECTED Bilirubin [Mass/Vol] 0.68 mg/dL 0.3 - 1 .2 mg/dL [employer] Phone: Calcium [Mass/Vol] 9.5 mg/dL 8.6 - 10. 4 mg/dL [employer] Phone: Chloride [Moles/Vol] 105 mmol/L 98 - 10 7 mmol/L [employer] Phone: CO2 [Moles/Vol] 24 mmol/L 20 - 31 mmol/L [employer] Work Phone: Creatinine [Mass/Vol] 0.6 mg/dL 0.50 - 0.90 mg/dL [employer] Phone: Free PSA/Total PSA [Mass fraction] 6.9 g/dL 6.4 - 8.3 g/dL [employer] Phone: GFR >60 >60 mL/min [employer] Phone: GFR Non- >60 >60 mL/min [employer] Phone: GFR/1.73 sq M.predicted MDRD (S/P/Bld) [Vol rate/Area] [employer] Phone: Comment on above: Average GFR for 70 o r more years old: 75 mL/min/1.73sq m Chronic Kidney Disease: <60 mL/min/1.73sq m Kidney failure: <15 mL/min/1.73sq m eGFR calculated using average adult body mass. Additional eGFR calculator available at: http://www.[employer]adingView/multiple_crcl_2012.htm GFR/1.73 sq M.predicted MDRD (S/P/Bld) [Vol rate/Area] NOT REPORTED [employer] Phone: Glucose [Mass/Vol] 97 mg/dL 70 - 99 mg/dL [employer] Phone: Potassium [Moles/Vol] 5.6 mmol/L High 3.7 - 5.3 mmol/L [employer] Phone: Comment on above: SPECIMEN MODERATELY HEMOLYZED, RESULTS MAY BE ADVERSELY AFFECTED Sodium [Moles/Vol] 139 mmol/L 135 - 144 mmol/L [employer] Phone: Urea nitrogen (BldV) [Mass/Vol] 18 mg/dL 8 - 23 mg/dL [employer] Phone: Urea nitrogen/Creatinine (Bld) [Mass ratio] NOT REPORTED [employer] Phone: ECHO Complete 2D W Doppler W ColorOrdered By: Laz Portillo on 09-20-2020 [facility] Transthoracic Echocardiography Report (TTE) Patient Name QUINTIN Date of Study 09/20/2020 NU Ibarra Date of 1950 Gender Female Age 70 year(s) Race Room Number Height: 64.96 inch, 165 cm Corporate ID [id number] Weight: 160 pounds, 72.6 kg # Patient Acct [id number] BSA: 1.8 m^2 BMI: 26.66 kg/m^2 # MR # [id number] [employer] Elaine Miles Interpreting Osmar Pryor Physician Fellow Referring Nurse Practitioner Interpreting Referring Physician LAZ PORTILLO, SUNG Fellow JANNETH* Type of Study TTE procedure:2D Echocardiogram, M-Mode, Doppler, Color Doppler. Procedure Date Date: 09/20/2020 Start: 07:43 AM Study Location: [facility] Technical Quality: Fair visualization Indications:Syncope. History [...] velocity:0.07 m/s Lateral Wall E' velocity:0.10 m/s [facility] [employer] Work Phone: Tao, [employer] Incoming Cardio Results From [facility]/Ge - 09/20/2020 10:17 AM EDT [facility] Transthoracic Echocardiography Report (TTE) Patient Name QUINTIN Date of Study 09/20/2020 [facility] Date of 1950 Gender Female Age 70 year(s) Race Room Number Height: 64.96 inch, 165 cm Corporate ID [id number] Weight: 160 pounds, 72.6 kg # Patient Acct [id number] BSA: 1.8 m^2 BMI: 26.66 kg/m^2 # MR # [id number] Pump Servicer AlpakarenbethElaine Interpreting Osmar Pryor Physician Fellow Referring Nurse Practitioner Interpreting Referring Physician SUNG AGUAYO Fellow JANNETH* Type of Study TTE procedure:2D Echocardiogram, M-Mode, Doppler, Color Doppler. Procedure Date Date: 09/20/2020 Start: 07:43 AM Study Location: [facility] Technical Quality: Fair visualization Indications:Syncope. History [...] velocity:0.07 m/s Lateral Wall E' velocity:0.10 m/s [employer] Phone: Lipid PanelOrdered By: Iker Portillo on 09-20-2020 Cholesterol [Mass/Vol] 219 mg/dL High <200 [employer] Phone: Comment on above: Cholesterol Guidelines: <200 Desirable 200-240 Borderline >240 Undesirable Cholesterol in HDL [Mass/Vol] 61 mg/dL >40 [employer] Phone: Comment on above: HDL Guidelines: <40 Undesirable 40-59 Borderline >59 Desirable Cholesterol in LDL [Mass/Vol] 129 mg/dL 0 - 130 mg/dL [employer] Phone: Comment on above: LDL Guidelines: <100 Desirable 100-129 Near to/above Desirable 130-159 Borderline >159 Undesirable Direct (measured) LDL and calculated LDL are not interchangeable tests. Cholesterol in VLDL [Mass/Vol] NOT REPORTED 1 - 30 mg/dL [employer] Phone: Cholesterol.total/Cho lesterol in HDL [Mass ratio] 3.6 {ratio} <5 [employer] Phone: Triglyceride [Mass/Vol] 145 mg/dL <150 [employer] Phone: Comment on above: Triglyceride Guidelines: <150 Desirable 150-199 Borderline 200-499 High >499 Very high Based on AHA Guidelines for fasting triglyceride, February 2012. No Panel InformationOrdered By: Laz Portillo on 09-20-2020 Interpretation and review of laboratory results Abnormal [employer] Phone: TSH without ReflexOrdered By : Laz Portillo on 09-20-2020 TSH Qn 1.84 m[IU]/L [employer] Phone: VL Upper Extremity Venous Du plex LeftOrdered By: Laz Portillo on 09-20-2020 [employer] Incoming Cardio Results From [facility]/Ge - 09/20/2020 11:37 PM EDT [facility] Vascular Upper Extremities Veins Procedure Patient Name QUINTIN Date of Study 09/20/2020 NU Ibarra Date of 1950 Gender Female Age 70 year(s) Race Room Number Corporate ID # [id number] Patient MR # [id number] Servicer Roberto Henning Interpreting Physician Dread Hameed Referring [...] ! ! + --+ --+ --- + [employer] Work Phone: Coding Summaryon 08-24-2020 Coding Summary [employer] 64 ZwwislkoAMs1oQo+PGhlYWQ+ [id number] BH7RLMUVAUMPWV5XLT1nvMS7 DQikE4SbsuSo QfuecOHyTC25THd4PRT2sBmx EZaheZ9tkDLgF7h2HeDvOY28 uA58LSjvOGMpKvM6DcVeahhk bWFy C2luAbInaYWvIlv+PHRhYmxl IHdpZHRoPScxMDAlJyBzdHls OI3tIn7qRDCvPUSzbXbluSBy OiBj d9crSLEzIMnlKS2hrOxcC7Dk fML6WUUzt2j6Qk25gTY+PHRk NDV6vWkuOMndu407HuZxx2gy IDM3 yEBqMTpyFXF9G99lw0H2TAJz ZTJqNSI7kOT2vP5tmPcogtow N7XacQLhYkT1CZS0eIJwrL0y bGln hodfyC2cZls+L32WCQ5AIIBB JK2XQwc4N1VvMvsgkBK+PC90 HXCvEI82wDZjpZTuo7avvOh8 JzEw SICcMPT8rOfdUAfvg9VkUBLb Q62gtDAta8O7ICXvqFlecCCk MbZifGW9zI6yRIbycinfv0el dzsn Gjbrd6gzzt02tJ48F35wQHpo NXAwVYW1LVBlNITikQhsbn6a lQ1nHk3+SYfpt7sdn9rlcMb7 IjIw GZWimoTcsFjxLJR1d4XsXg49 I6EaiRzqp5TkDoc6pa55cDDf n7O4iTK0ZXqfUURdoQ2fHAbp ZnQ6 RMSxLmQrrT32mVFhPBssGw2p zRzdmHslZQ7gQPGhdbhuCMPy oJ0uVDDvdHMsdSzjRE3cUDJw bjtm d402RnFuKUX8AUCrxQEyI5Ji dI3ySoBgUQEeTQGfZ8TmdOBu QRvoX368RMohAgW8KFXygfVd Y2Fs DDBpyVfgOzV0u6M7Oq4Ui1Hc xrrhMDT6UZirQMW5LpJ6LsEm BkN9O0FxIms4GWIziIvaEW3a J3Bh FMXgqbffafqeaWB4ONHtHQFo iC41vHKyEUugWg5tc0F5d395 SFCmRYBunN08Gw3wqCflLLFp dCBU jA7yhfwka6kfnbmbDzAeCOUy MSh7SKb9SOIpiFfzGpXcAIN8 KbL3TPS3yUXtgO9bcHyrndyv dG9w Oyc+G90aqD9cOBK8GRA8gubx UFHwoiMuOL90ZO31U2BnYxqk dGFibGU+FWGtazXfuEmcEP9o YmFj d7rwt8ZhUDkfM3NsNHSnRXye Kkx8LORmROI1oRB9lP0mXFGv JCkqc1G2yGY7M5IyspTyru4n b2xs XAUkMRfxS86evAAzh2R3FASw nMZ1OAKmeAdcMtKqlR75Bza+ MXQvmVfmb0JnRonvy2uxy8bf dGg9 FwDjRMWyjkCeoZnyWHY1m1Va Nh57Z57sDWbkTOKfSAVdBPRm VDHzdUblvr4jmO0rYb6+PGNv bCB3 tKL9zT9zMAAgIyQ8MUofA222 YnJvkVArSkdlf9rsd3vjnFb6 YfVyTUIibfJosLhmLJH5l7Qy Lz48 V00eFCgiEWCrLFHyAAOrMTFs rEaetw2ecF2xFq0+EJ1ri2np ap68qA90wZI+KJOkQXG2wXcg PSdw ZEZguS8zWXtmUhK1QSWjBgKc iG11pFCbLBmoOh7pyDavhNtj RO5jSOOprivcg383UvSre4uu IDEw wXJpAIjbPXN4X93dc3E0KVSo SFQgYIS8lUJ5zT6aiFdbziej bGVmdDsgdmVydGljYWwtYWxp Z246 IHRvcDsnPlBhdGllbnQgTmFt XEk2W3HmHio3ACIjqDcsLL0q lSEgQZvjXc8roFvnkSqoEY2q NTBp gemxk421HiCon0wjFCVmkJHm SUyzJCW9C64ci9T2PGZhBISh IDG8oKX8sS8fcUycabqngKKs dDsg piDemWfkUOjlFYuuI821YJUd wSpvPzGrnwYcXFEaeHW1EP15 XR65sJMth8D4dHD2B3WzVVQl bmct xwzhdJS2HJBfYNEqzX76Bj5w kVznVm7fWWIrNFW2NRYlzSIi M8NrlP0hRrTlXUQlOWBnQ9Iu eHQt FXduL478NRwbFdD4HUIacfPh B6AnRVAjcVexHgT2m9Y2Ae9Y Y0F8YH69SC89cVNsd2N1qNH1 J3Bh BXWjqdaonfttfNA7XBCmBYCb jK08Tt4pgZnpEd5oWWTeSPN4 RNYefYGdE8GauF9fDtQvOHFc MDAw T2AltORhOEnbM822DTncOqH9 GNAnccKiL3IoWEMpaImgRtE8 g9W8Bm5XHRe6RC94AO96fNBb c3R5 lTB8R3DyRQStxwntkqrgrIP9 YBOmIFFapY12Og7oyPtvCl8q USRsDDE5EJRzgFUnU6PemS9b OiAj KEEoZWGpQ3BmuVPlMBqvW501 KLvkHpO6CLAvwpLzF7AuJCVp nLeqKoQ5r1V4Ia3XNYCxFV40 IFR5 sZD2PJ46XW68L1XpJrrruMXf bGU+PHRhYmxlIHdpZHRoPScx MOXkTwHhbHwkXX2yYs0wNCZu LWNv cZhhpPQjIlBvi0dxDKJoVOtc JR8zmXaoW4TrkPA0VZCef4o5 Mw00S98vM1XdbMR+PGNvbCB3 aWR0 yH3oMdIzTaI8TXqtY274UwTu kEPuYfjxh8xys8bpoAc9RdD8 OXKtjaGhfSnaXCF1w9OeQt94 Y29s IHdpZHRoPSIxNSUiIHZhbGln fa2cfR4kYg2+UTNhaGD2oXY1 cX8nGhMuJnX5VJlvI577MtAc cCIv Dyuar3ifm7azdGj8BzOlGTVt nzPsdIdkXCF9j6XlCy09R2Lg aCypd1ZrNdc0fk43kLTwr4M8 bGU9 G8PfFSKlmiojqVWitUdfUR7o HLIegejaNOSvrN9sGGMdD5i0 WbIcKqE4AUsvH2VezcV1JPWe cHQg JRrbQXN5U47dc7M9CFQuFLXw HRK4lZX2wQ1gfHgrdtpxdLZd lRhlwiUcfXtaUOlpAIdrO762 IHRv hAarYFAvcY9gJTQlhSGgnBsk GU1nLMIcvmkxDawITvACKIFN JPSUVFBVQM7UNOYTBJ38WR78 dGQg o0K0hIP0F0PyWAWkldadoham fME5UAQiOSKotZ03cJBwOLiw Kj9qz6G7z169CYNlXKDmsJ57 Zm9u jDheJMEhzEGEbH1uzmduv1bu vegvGlBaXERmPSk1JTq7FTPz wNtjKtIbIPO1PwQ1IHZ9zTKi bC1h mXvhliedjM7tNzv+MTAvMTIv SJc0LVslmSM+SXBnBKL4oKad NTqcBJQuwR9iBUUiP6b7MiJx LjA1 VHqpU9NfIJMvczxkNw20pU2b KkQjYgW0XYhpL3AjvkI5KVVa vEJbDTdaPLH7Z22fe5N2RYSb MDAw HRC3jSR7aP4ebCyjsomucMTr gVzycgHnpAomSBfwUNroX662 NDAtuYlsKytnKIcdXCVqGF54 ZD48 lFXpp2O9pUX8X0IuDNDcgfzc dtfhyIY2TPZbQGZkcH12aLRh XRweUo8wp0E5g256MOFlOVUk aW47 Ku0jcSlwTLGkoNLZpJ7venez i0txtwvsXpOkAYHcECz1KXz8 PFSzmLelJbSoCIQ8CyS3VUZ8 aWNh nV6nePjbfablvZ8yYnw+RkVN WVyRJP04WG42eNKyl1O5kOV9 N6FyKNOdvselannrbPM8AHSs MDUw gM00wSGjRFvwVa3kb6A4r240 AITtAXCyrI51Rp3mjBatLKNu pUVMpZ5qpfzug4mcqnqtLmFk MDAw SLa2SFx3RJQifLsjOiAdOXH4 YbA0NXC2lPKpjD5dyGilmgcc mF3lAga+NpBwmHBoeB9nAT65 dHBh fShhslR6Z2WvXgqjuWZ+PC90 TRJnDF96vHEkwQOkf6ueyUj5 AuCpMYCySMD2iWjbIBjfj1Eu ZXIt N87vpTYjr1Z9DABwkUcsvGRe CaFtoLF2xZ5fPFnowttnp8yb rnxjEtlls7hsfe56xM80S33w IHdp HEGpNDAmMIRmEYUupOikar0k xP2hAy0+JEQtpHG7qVM8vC2s XbArRkI3AZrmL512MoZbhQBt Pjxj v7szm3mytAh6GlMmOKRqiyMz zSheVTD1s5UcEk41X18wTNhp KTIwFIWaISBaBIIocLozkq0l dG9w Ii8+SO9wn0tqfa57uX78mMX+ ORSmJHL7qLuwIEipSUCwoX3m BYdkTeT1LTDuLfYqrB80cCVn ZGlu Iy7hcBzqqRmpMA5hXHQgtcgn n844GrMme1meFBQucTOjQLnb UUC7G25ov8D1VAYaDIKeEYZ9 dGV4 gI8egRfaclkoiRNbrQnploDo bDvaAIauQZfpK703HJYpbQmd YiGhaFOcP7slufBGZB7sRffw dGQ+ UCKyKYM5zTrgCJftJUFtpI8b BCLlQ8g4OaCkHsA7BVagG7Id vmH0KCEpuIMuVRPsdUAWsS2g cztj x2jjlruzOgKfUSHyQSs4LDv4 IFOeaMjsJdImRBP1XxK7ZYD6 xRSwwP8weSxmybgfnH7eJju+ RklO OjwvdGQ+YKBjTGN5hPjhCYyf NHOlgX8wWYSbX1m7YnWkYgE1 TTupZ2EqkyO4VWWcwOMxJRWh dCBU eC4apucab3ccejklScDcPWNb EDz7FUx4BETycRbdYtRiUWT4 RcZ6GVC4uRTogA0jdIfsqotu dG9w Oyc+TVJOOjwvdGQ+PHRkIHN0 fQvyJKvoKINqlI9nCBIlB2j8 GvFnGyA0KGfsC9BkclS0VOEb bGQg KCNrkQVHhQ7imugwk1ywupej RcMuQHEbXKx6XWu2EKNngZlr MlTbILB6ZgH8DJI2oHHibO8p bGln ovkyqS2wMht+QIP4FYV7IA49 OX04A1JaHqybdDUceHA+PHRh YmxlIHdpZHRoPScxMDAlJyBz dHls ZT0 (more content not included)... [facility] Coding Summaryon 05-30-2020 Coding Summary CODING DATE: 021 [facility] STATUS: Home PAYOR: Medicare ADMIT DX: [...] Sydney Franklin Date Saved: 05/30/2020 03:43 pm [facility] Physical Therapy Noteon 05-13 Physical Therapy Note [id number] TIFF [facility] ED Clinical Summaryon 2020 ED Clinical Summary [facility] ? Urgent Care [address] [place], [place] [id number] Clinical Summary PERSON INFORMATION Name: NU RIBEIRO Age: 70 Years Sex: FEMALE : 1950 MRN: Acct#: Visit Reason: UC - Dysuria; PAINFUL URINATION Arrival: 05/20/2020 17:32:27 Discharge: 05/20/2020 18:13:00 LOS: 000 00:41 Check In: 05/20/2020 17:32:27 Checkout: 05/20/2020 18:13:00 Address: [address] [place] [address] PCP: Laz Portillo MD PROVIDER INFORMATION Provider [...] EDUCATION INFORMATION Instructions: Urinary Tract Infection, Adult, Mioo-nk-Btfv Follow-Up: With: Address: When: Laz Portillo [address] [place] [address] [facility] (1) Comments: Begin on the bactrim this is your antibiotic, take as written until gone Drink plenty of water, stay hydrated Follow-up with your primary care provider in 5-7 days for reevaluation DIAGNOSIS: UTI (urinary tract infection) Patient Understands: Yes - Patient/family/caregiver verbalizes understanding of instructions given Comment: Normal [facility] ED Patient Summaryon 021 ED Patient Summary [facility] ? Urgent Care [address] [place], [place] [id number] PATIENT DISCHARGE INSTRUCTIONS Patient Information Name: NU RIBEIRO Age: 70 Years Date of : 1950 Reason For Visit: UC - Dysuria; PAINFUL URINATION Arrival Time: 05/20/2020 17:32:27 Primary Care Physician: Laz Portillo MD Attending Physician: Spasic PA, Kristopher Comment: Patient Education With: Address: When: Laz Portillo [address] [place] [address] [facility] (1) Comments: Begin on the bactrim [...] these instructions at home: Medicines ? Take guux-kev-ymehbpf and prescription medicines only as told by [...] Reviewed: 11/06/2018 [employer] Patient Education ? 2020 [employer] Medication Information: The exam and treatment you received today in the [facility] Emergency Department were for an urgent problem and are not intended as complete care. It is important for you to follow up with a doctor, nurse practitioner (more content not included)... [facility] UA [id number] 05-20-2020 UA Bacteria None [facility] Comment on above: Order Comment: Urina lysis Microscopic order added on by [employer] system. Performed By: #### 5 [id number] ####[facility] (DEFAULT)[address] [place] [address] UA RBC 0-2 [facility] Comment on above: Order Comment: Urina lysis Microscopic order added on by [employer] system. Performed By: #### 5 [id number] ####[facility] (DEFAULT)[address] [place] [id number] UA Squam Epi Rare [facility] Comment on above: Order Comment: Urina lysis Microscopic order added on by [employer] system. Performed By: #### 5 [id number] ####[facility] (DEFAULT)[address] [place] [address] UA WBC 0-2 [facility] Comment on above: Order Comment: Urina lysis Microscopic order added on by [employer] system. Performed By: #### 5 [id number], [id number] ####[facility] (DEFAULT)[address] [place] [address] UA w Culture if Ind Standard on 05-20-2020 Breakpoint UA [facility] Comment on above: Performed By: #### 5 [id number] ####[facility] (DEFAULT)[address] [place] [address] Color (U) [facility] Comment on above: Result Comment: Test cannot be satisfactorily determined due to intensely colored urine. Performed By: #### 5 [id number], [id number] ####[facility] (DEFAULT)[address] [place] [address] Culture? Not Indicated Invalid Interpretation Code [facility] Comment on above: Performed By: #### 5 [id number], [id number] ####[facility] (DEFAULT)[address] [place] [address] Glucose (U) [Mass/Vol] 250 mg/dL Normal [facility] Comment on above: Performed By: #### 5 [id number], [id number] ####[facility] (DEFAULT)[address] [place] [address] Ketones Ql (U) TRACE Normal [facility] Comment on above: Performed By: #### 5 [id number], [id number] ####[facility] (DEFAULT)[address] [place] [address] Micro? Indicated Normal [facility] Comment on above: Performed By: #### 5 [id number], [id number] ####[facility] (DEFAULT)[address] [place] [address] UA Bilirubin Negative Normal [facility] Comment on above: Performed By: #### 5 [id number], [id number] ####[facility] (DEFAULT)[address] [place] [address] UA Blood Negative Normal NEGATIVE [facility] Comment on above: Performed By: #### 5 [id number], [id number] ####[facility] (DEFAULT)[address] [place] [address] UA Clarity CLEAR Normal CLEAR [facility] Comment on above: Performed By: #### 5 [id number], [id number] ####[facility] (DEFAULT)[address] [place] [address] UA Leuk Est Negative Normal NEGATIVE [facility] Comment on above: Performed By: #### 5 [id number], [id number] ####[facility] (DEFAULT)[address] [place] [address] UA Nitrite Positive Abnormal NEGATIVE [facility] Comment on above: Performed By: #### 5 [id number], [id number] ####[facility] (DEFAULT)[address] [place] [id number] UA pH 5.0 Normal 5-8 [facility] Comment on above: Performed By: #### 5 [id number], [id number] ####[facility] (DEFAULT)[address] [place] [address] UA Protein 100 Abnormal NEGATIVE [facility] Comment on above: Performed By: #### 5 [id number], [id number] ####[facility] (DEFAULT)[address] [place] [address] UA Spec Grav 1.020 Normal 1.001-1.035 [facility] Comment on above: Performed By: #### 5 [id number], [id number] ####[facility] (DEFAULT)[address] [place] [address] UA Urobilinogen >=8.0 Invalid Interpretation Code 0.2-1.0 [facility] Comment on above: Performed By: #### 5 [id number], [id number] ####[facility] (DEFAULT)[address] [place] [id number] Urine Source Clean Catch Normal [facility] Comment on above: Performed By: #### 5 [id number], [id number] ####[facility] (DEFAULT)[address] [place] [address] Urgent Care Note- Provideron 05-20-2020 Urgent Care [...] Lab Flowsheet 05/20/2020 17:35 EST UA Color [facility] UA Clarity CLEAR UA Glucose 250 mg/dL [...] cells patient treated with Bactrim for UTI. [facility] color and glucose present likely due to Azo treatment. Pt is not diabetic. Home care instructions provided, pt stated understanding of home care instructions. Follow-up with primary care provider in 5-7 days sooner if worse. Impression and Plan Diagnosis UTI (urinary tract infection) ([id number] N39.0, Discharge, Medical) Plan Prescriptions: Launch prescriptions Pharmacy: Bactrim DS 800 mg-160 mg oral tablet (Prescribe): 1 tab(s), PO, BID, for 3 day(s), 6 tab(s), 0 Refill(s). Patient was given the following educational materials: Urinary Tract Infection, Adult, Vubm-xa-Hkqe, Urinary Tract Infection, Adult, Efgy-kg-Gqdy. Follow up with: Laz Duran on the [...] prescription, Patient indicated understanding of instructions. Normal [facility] Recordon 021 Urgent Care Record [facility] ? Urgent Care [address] [place] [address] PATIENT DISCHARGE INSTRUCTIONS Patient Information Name: NU RIBEIRO Age: 70 Years Date of : 1950 Reason For Visit: UC - Dysuria; PAINFUL URINATION Arrival Time: 05/20/2020 17:32:27 Primary Care Physician: Nicholas SNELL, Laz Romero Attending Physician: Kristopher Conway Comment: Visit Diagnosis: Diagnoses This Visit UC - Dysuria ([id number]) UTI (urinary tract infection) (N39.0) If you received any narcotics, sedation, or any other medication that causes drowsiness for the next 24 hours, unless otherwise directed: ? Do not drive a car. ? Do not operate machinery such as power tools, [employer], drills, sewing machines, or stoves ? Avoid alcoholic beverages and drugs for allergies, nerves, or sleep ? Do not make important personal or business decisions or sign any legal documents With: Address: When: Laz Portillo [address] [place] [address] Business (1) Comments: Begin on the bactrim this is your antibiotic, take as written until gone Drink plenty of water, stay hydrated Follow-up with your primary care provider in 5-7 days for reevaluation Medication Information: The exam and treatment you received today in the [facility] were for an urgent problem and are not intended as complete care. It is important for you to follow up with a doctor, nurse practitioner, or physician?s medical clerical assistant for ongoing care. If your symptoms [...] so we can reach you if necessary. [facility] has provided you with a complete list of medications post discharge. Please inform your primary school teacher librarian/provider of your visit and for further instruction on these medications. Any specific questions regarding your chronic medications and dosages should be discussed with your primary care physician(s) and/or pharmacist. New Medications [facility], [address] [place], [place] [id number], [phone] sulfamethoxazole-trimeth oprim (Bactrim DS 800 mg-160 mg [...] take antibiotic medi (more content not included)... [facility] Provider Orderson 04-04-2020 Provider Orders [id number] 1022 [id number] TIFF [facility] CBC Auto Differentialon 09-2 Basophils (Bld) [#/Vol] 0.10 10*3/uL [place] Basophils/100 WBC (Bld) 1 % 0 - 2 % [place] Differential Type NOT REPORTED [place] Eosinophils (Bld) [#/Vol] 0.40 10*3/uL [place] Eosinophils/100 WBC (Bld) 7 % High 0 - 4 % [place] Erythrocyte distribution width (RBC) [Ratio] 12.7 % 11.5 - 14.9 % [place] Hematocrit (Bld) [Volume fraction] 38.4 % 36 - 46 % [place] Hemoglobin (Bld) [Mass/Vol] 13.3 g/dL 12 - 16 g/dL [place] Interpretation and review of laboratory results Abnormal [place] Lymphocytes (Bld) [#/Vol] 2.00 10*3/uL [place] Lymphocytes/100 WBC (Bld) 34 % 24 - 44 % [place] MCH (RBC) [Entitic mass] 30.6 pg 26 - 34 pg [place] MCHC (RBC) [Mass/Vol] 34.6 g/dL 31 - 3 7 g/dL [place] MCV (RBC) [Entitic vol] 88.4 fL 80 - 100 fL [place] Monocytes (Bld) [#/Vol] 0.40 10*3/uL [place] Monocytes/100 WBC (Bld) 7 % 1 - 7 % [place] Platelet mean volume (Bld) [Entitic vol] 7.3 fL 6 - 12 fL [place] Platelets (Bld) [#/Vol] 226 10*3/uL [place] Platelets (Bld) [#/Vol] NOT REPORTED [place] RBC (Bld) [#/Vol] 4.34 10*6/uL 4 - 5.2 m/uL [place] RBC morphology finding Nom (Bld) NOT REPORTED [place] Segmented neutrophils/100 WBC (Bld) 51 % 36 - 66 % [place] Segs Absolute 3.00 [place] WBC (Bld) [#/Vol] NOT REPORTED per 100 WBC [place] WBC (Bld) [#/Vol] 5.9 10*3/uL [place] WBC Morphology NOT REPORTED [place], [place] Comprehensive Metabolic Pane justino 02-03-2020 Albumin [Mass/Vol] 4.3 g/dL 3.5 - 5.2 g/dL [place] Albumin/Globulin [Mass ratio] NOT REPORTED [place] ALP [Catalytic activity/Vol] 54 U/L 35 - 104 U/L [place] ALT [Catalytic activity/Vol] 14 U/L 5 - 33 U/L [place] Anion gap [Moles/Vol] 9 mmol/L 9 - 17 mmol/L [place] AST [Catalytic activity/Vol] 15 U/L <32 [place] Bilirubin Ql (U) 1.20 mg/dL 0.3 - 1.2 mg/dL [place] Bun/Cre Ratio NOT REPORTED [place], [place] Calcium [Mass/Vol] 10.1 mg/dL 8.6 - 10. 4 mg/dL [place] Chloride [Moles/Vol] 102 mmol/L 98 - 10 7 mmol/L [place] CO2 [Moles/Vol] 27 mmol/L 20 - 31 mmol/L [place] Creatinine [Mass/Vol] 0.7 mg/dL 0.5 - 0.9 mg/dL [place] GFR >60 >60 mL/min [place] GFR Non- >60 >60 mL/min [place] GFR/1.73 sq M predicted among non-blacks MDRD (S/P/Bld) [Vol rate/Area] [place] Comment on above: Average GFR for 70 o r more years old: 75 mL/min/1.73sq m Chronic Kidney Disease: <60 mL/min/1.73sq m Kidney failure: <15 mL/min/1.73sq m eGFR calculated using average adult body mass. Additional eGFR calculator available at: http://www.TradingView/multiple_crcl_2012.htm GFR/1.73 sq M predicted among non-blacks MDRD (S/P/Bld) [Vol rate/Area] NOT REPORTED [place] Glucose [Mass/Vol] 88 mg/dL 70 - 99 mg/dL [place] Potassium [Moles/Vol] 4.7 mmol/L 3.7 - 5.3 mmol/L [place] Protein [Mass/Vol] 7.1 g/dL 6.4 - 8.3 g/dL [place] Sodium [Moles/Vol] 138 mmol/L 135 - 144 mmol/L [place] Urea nitrogen [Mass/Vol] 21 mg/dL 8 - 23 mg/dL [place] Otheron 02-03-2020 Immature granulocytes (Bld) [#/Vol] NOT REPORTED [place] TSH without Reflexon 020 TSH Qn 1.69 m[IU]/L [place] VL Upper Extremity Venous Du plex Lefton 02-03-2020 [facility] Vascular Upper Extremities Veins Procedure Patient Name KINSTLER Date of Study 02/03/2020 [facility] Date of 1950 Gender Female Age 69 year(s) Race Room Number OP Corporate ID [id number] # Patient Acct [id number] # MR # [id number] Servicer Yomi Alexander Interpreting Dread Hameed Physician Referring Referring SUNG AGUAYO* Practitioner Procedure Type of Study: Veins: Upper Extremities Veins, Venous Scan Upper Left. Indications for Study:Swelling. Patient Status:Out Patient. Technical Quality:Adequate visualization. Conclusions Summary No evidence of superficial or deep venous thrombosis in the left upper extremity. Signature Electronically signed by Dread Hameed([facility] physician) on 02/03/2020 09:17 PM Findings: Right Impression: Left Impression: The subclavian [...] !Phasic ! ! + --+ --+ ---+ [facility] [place], [place] Tao, pn Incoming Cardio Results From [facility]/Ge - 02/03/2020 9:17 PM EDT [facility] Vascular Upper Extremities Veins Procedure Patient Name QUINTIN Date of Study 02/03/2020 NU Ibarra Date of 1950 Gender Female Age 69 year(s) Race Room Number OP Corporate ID [id number] # Patient Acct [id number] # MR # [id number] Pump Servicer Yomi Alexander Interpreting Dread Hameed Physician Referring Referring SUNG AGUAYO Nurse Physician JANNETH* Practitioner Procedure Type of Study: Veins: Upper Extremities Veins, Venous Scan Upper Left. Indications for Study:Swelling. Patient Status:Out Patient. Technical Quality:Adequate visualization. Conclusions Summary No evidence of superficial or deep venous thrombosis in the left upper extremity. Signature Electronically signed by Dread Hameed([facility] physician) on 02/03/2020 09:17 PM Findings: Right Impression: Left Impression: The subclavian [...] ! ! + --+ --+ --- + [facility] SHOULDER LEFT (MIN 2 VIEW S)on 11-12-2019 1. No acute bony or joint abnormality 2. AC joint and glenohumeral joint degenerative changes [facility] EXAMINATION: THREE X RAY VIEWS OF THE LEFT SHOULDER 11/12/2019 2:06 pm COMPARISON: None. HISTORY: ORDERING SYSTEM PROVIDED HISTORY: Rotator cuff arthropathy of left shoulder TECHNOLOGIST PROVIDED HISTORY: Reason for Exam: chronic shoulder pain Acuity: Chronic Type of Exam: Initial FINDINGS: Alignment is anatomic. 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 No fractures or destructive bony abnormalities are identified. [facility] Tao, pn Incoming Radiant Results From [email or web address] - 11/12/2019 2:24 PM EDT EXAMINATION: THREE [...] AC joint and glenohumeral joint degenerative changes [facility] NGUYEN DIGITAL DIAGNOSTIC W OR WO CAD [...] to the patient regarding the results. [employer] [place] [employer] recommends annual mammograms for women 40 years and older. [place] EXAMINATION: DIAGNOS TIC DIGITAL LEFT BREAST [...] for a bilateral mammogram in January 2020. [place], [place] Tao, Mhpn Incoming Radiant Results From [email or web address]s - 07/31/2019 6:05 PM EDT EXAMINATION: [...] to the patient regarding the results. [employer] [place] [employer] recommends annual mammograms for women 40 years and older. [employer] [facility] Otheron 01-30-2019 No evidence of malignancy. [...] sent to the patient regarding the results. [employer] [facility] [facility] EXAMINATION: BILATER AL DIGITAL DIAGNOSTIC MAMMOGRAM; [...] prior study performed in August reportedly aspirated. [facility] Tao, Mhpn Incoming Radiant Results From [employer]acs - 01/30/2019 4:33 PM EDT EXAMINATION: BILATERAL [...] sent to the patient regarding the results. [facility] NGUYEN STEREO BREAST BX W LOC D [...] by:Lizbeth Lees MD12/30/17Edited Result - FINAL Normal [facility] MAMMOGRAM POST BX CLIP PLACE MADYSON [...] by:Lizbeth Lees MD12/30/17Edited Result - FINAL Normal [facility] Surgical Pathologyon 018 Surgical Pathology (NOTE)[id number] LABORATORIESCONSULTING PATHOLOGISTS CORPORATIONANATOMIC [id number] [place] [address] [id number] Fax: SURGICAL PATHOLOGY CONSULTATIONPatient Name: [facility] Rec: [id number] Number: [id number]: 12/26/2017Received: 12/26/2017Reported: 12/27/2017 12:48-- Diagnosis --LEFT BREAST, [...] pathologist (MILENA) who agrees withthe diagnosis. Normal [facility] Comment on above: Performed By: #### P PPVS ####[address] [address] Vital Signs Date Time Vital Sign Value Performing Clinician Facility 01-11-2023 14:27-0400 Body height 161.3 cm Allyssa Lopez APRN.NURSING SUPPORT WORKER Work Phone: [facility] 01-11-2023 14:27-0400 Body temperature 97.7 [degF] Allyssa Lopez BLOCK ENGRAVER.NURSING SUPPORT WORKER Work Phone: [facility] 01-11-2023 14:27-0400 Body weight 73.75 kg Allyssa Lopez APRN.NURSING SUPPORT WORKER Work Phone: [facility] 01-11-2023 14:27-0400 Diastolic blood pressure 59 mm[Hg] Allyssa Lopez BLOCK ENGRAVER.NURSING SUPPORT WORKER Work Phone: [facility] 01-11-2023 14:27-0400 Heart rate 75 /min Allyssa Lopez BLOCK ENGRAVER.NURSING SUPPORT WORKER Work Phone: [facility] 01-11-2023 14:27-0400 Respiratory rate 16 /min Allyssa Lopez BLOCK ENGRAVER.NURSING SUPPORT WORKER Work Phone: [facility] 01-11-2023 14:27-0400 SaO2% (BldA) [Mass fraction] 98 % Allyssa Lopez BLOCK ENGRAVER.NURSING SUPPORT WORKER Work Phone: [facility] 01-11-2023 14:27-0400 Systolic blood pressure 125 mm[Hg] Allyssa Lopez BLOCK ENGRAVER.NURSING SUPPORT WORKER Work Phone: [facility] 08-16-2022 14:40-0400 Body temperature 97.3 [degF] Josesito Basurto MD Work Phone: [facility] [place] 08-16-2022 14:40-0400 Diastolic blood pressure 74 mm[Hg] Josesito Basurto MD Work Phone: [employer] 08-16-2022 14:40-0400 Heart rate 55 /min Josesito Basurto MD Work Phone: [employer] 08-16-2022 14:40-0400 Respiratory rate 12 /min Josesito Basurto MD Work Phone: [facility] [place] 08-16-2022 14:40-0400 SaO2% (BldA) [Mass fraction] 98 % Josesito Basurto MD Work Phone: [employer] 08-16-2022 14:40-0400 Systolic blood pressure 169 mm[Hg] Josesito Basurto MD Work Phone: [employer] 08-16-2022 11:25-0400 Body height 165.1 cm Josesito Basurto MD Work Phone: [employer] 08-16-2022 11:25-0400 Body mass index (BMI) [Ratio] 27.46 kg/m2 Josesito Basurto MD Work Phone: [employer] 08-16-2022 11:25-0400 Body weight 74.84 kg Josesito Basurto MD Work Phone: [employer] 07-12-2022 14:45-0500 Diastolic blood pressure 66 mm[Hg] Josesito Basurto MD Work Phone: [employer] 07-12-2022 14:45-0500 Respiratory rate 17 /min Josesito Basurto MD Work Phone: [employer] 07-12-2022 14:45-0500 SaO2% (BldA) [Mass fraction] 95 % Josesito Basurto MD Work Phone: [employer] 07-12-2022 14:45-0500 Systolic blood pressure 167 mm[Hg] Josesito Basurto MD Work Phone: [employer] 07-12-2022 14:40-0500 Body temperature 97.3 [degF] Josesito Basurto MD Work Phone: [employer] 07-12-2022 14:40-0500 Heart rate 56 /min Josesito Basurto MD Work Phone: [employer] 07-12-2022 11:50-0500 Body height 165.1 cm Josesito Basurto MD Work Phone: [employer] 07-12-2022 11:50-0500 Body mass index (BMI) [Ratio] 27.46 kg/m2 Josesito Basurto MD Work Phone: [facility] [place] 07-12-2022 11:50-0500 Body weight 74.84 kg Josesito Basurto MD Work Phone: [facility] [place] 05-30-2022 19:00-0500 Body height 165.1 cm Татьяна Guerrero Other [employer] Other 05-30-2022 19:00-0500 Body mass index (BMI) [Ratio] 27.45 kg/m2 Татьяна Guerrero Other [employer] Other 05-30-2022 19:00-0500 Body temperature 98 [degF] Татьяна Guerrero Other [employer] Other 05-30-2022 19:00-0500 Body weight 74.84 kg Татьяна Yolanda Other [employer] Other 05-30-2022 19:00-0500 Diastolic blood pressure 74 mm[Hg] Татьяна Guerrero Other [employer] Other 05-30-2022 19:00-0500 Respiratory rate 18 /min Татьяна Guerrero Other [employer] Other 05-30-2022 19:00-0500 SaO2% (BldA) [Mass fraction] 98 % Татьяна Guerrero Other [employer] Other 05-30-2022 19:00-0500 Systolic blood pressure 154 mm[Hg] Татьяна Guerrero Other [employer] Other Encounters Encounter Date Encounter Type Care Provider Facility Start: 01-11-2023 End: 01-12-2023 ambulatory Allyssa Lopez APRN.NURSING SUPPORT WORKER Work Phone: Hematology/Oncology Comment on above: Malignant neoplasm o f upper-outer quadrant of left breast in female, estrogen receptor positive (HCC) (Primary Dx); 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 therapy Osteopenia due to ca ncer therapy (Primary Dx); Malignant neoplasm of upper-outer quadrant of left breast in female, estrogen receptor positive (HCC) Start: 01-11-2023 End: 01-11-2023 Patient encounter procedure Allyssa Lopez APRN.NURSING SUPPORT WORKER Work Phone: [facility] Start: 08-16-2022 End: 08-16-2022 ambulatory [facility] Start: 08-16-2022 End: 08-16-2022 Subsequent hospital visit by physician Josesito Basurto MD Work Phone: [facility] Start: 07-20-2022 End: 07-20-2022 ambulatory GATO CANO Facility:[facility] Start: 07-17-2022 Telephone encounter Gato olivares MD Work Phone: Hematology/Oncology Comment on above: Lab Orders Start: 07-12-2022 End: 07-12-2022 ambulatory [facility] Start: 07-12-2022 End: 07-12-2022 Subsequent hospital visit by physician Josesito Basurto MD Work Phone: [facility] Start: 07-05-2022 End: 07-10-2022 ambulatory [facility] Start: 07-03-2022 End: 07-04-[address] ALLYSSA LOPEZ Facility: Start: 05-30-2022 End: 05-30-2022 ambulatory Татьяна Guerrero Other [employer] Other Start: 05-30-2022 Office outpatient ne w 20 minutes Татьяна Guerrero [facility] Start: 02-20-2022 [...] End: 09-20-2020 Subsequent hospital visit by physician [facility] Comment on above: Arrived Syncope, unspecified syncope type Hypertension, unspec ified type; Fatigue, unspecified type Start: 02-03-2020 End: 02-03-2020 Subsequent hospital visit by physician [facility] Comment on above: Swelling of limb; Malignant neoplasm of upper-outer quadrant of left breast in female, estrogen receptor positive (HCC) Chronic fatigue; Cancer of breast, intraductal, left Start: 11-12-2019 End: 11-14-2019 Subsequent hospital visit by physician [facility] Xr Room 4 [facility] Radiology Comment on above: Rotator cuff arthrop athy of left shoulder Start: 07-31-2019 End: 08-02-2019 Subsequent hospital visit by physician [facility] Jef Mammo [facility] Mammography Comment on above: Abnormal mammogram Start: 01-30-2019 End: 02-01-2019 Subsequent hospital visit by physician [facility] Sherryg Mammo [facility] Mammography Comment on above: History of breast ca ncer Lump in female breas t Start: 12-26-2017 End: 12-29-2017 Patient encounter TRIPP PORTILLO [facility] Procedures Date Procedure Procedure [...] cancer screen colonoscopy Colon cancer screen colonoscopy [place], [place] Start: 06-26-2028 Screening for malign ant neoplasm of colon [facility] Start: 01-11-2026 DIABETES SCREEN DIABETES SCREEN [facility] Start: 09-20-2025 Lipid panel [facility] Start: 03-23-2024 DIABETES SCREEN DIABETES SCREEN [facility] Start: 01-12-2024 BP CONTROLLED (<130/80) BP CONTROLLE D (<130/80) [facility] Start: 07-26-2023 Depression Monitoring Depression Mon itoring [facility] Start: 07-21-2023 BP CONTROLLED (<130/80) BP CONTROLLE D (<130/80) [facility] Start: 07-12-2023 End: 09-11-2023 CBC W Auto Differential panel - Blood CBC + DIFF Lab Routine Malignant neoplasm of upper-outer quadrant of left breast in female, estrogen receptor positive (HCC) 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 therapy Expected: 07/12/2023, Expires: 09/11/2023 [facility] Work Phone: Comment on above: Expected: 07/12/2023 , Expires: 09/11/2023 Start: 07-12-2023 End: 09-11-2023 Comprehensive metabolic 2000 panel - Serum or Plasma COMP METABOLIC PANEL Lab Routine Malignant neoplasm of upper-outer quadrant of left breast in female, estrogen receptor positive (HCC) 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 therapy Expected: 07/12/2023, Expires: 09/11/2023 [facility] Work Phone: Comment on above: Expected: 07/12/2023 , Expires: 09/11/2023 Start: 04-27-2023 Annual Wellness Visi t (AWV) Annual Wellness Visit (AWV) [facility] Start: 04-26-2023 Depression Monitoring Depression Mon itoring [facility] Start: 04-26-2023 DTaP/Tdap/Td vaccine (1 - Tdap) DTaP/Tdap/Td vaccine (1 - Tdap) [facility] Comment on above: Postponed from 02/21 (Patient Refused) Start: 03-03-2023 Screening for malign ant neoplasm of breast Breast cancer screen [facility] Start: 01-11-2023 Influenza vaccination INFLUENZA (#1) [facility] Start: 12-04-2022 Lipid panel Lipid screen Josselin [facility] [place], [place] Start: 12-04-2022 Lipid screen Lipid screen [place], [place] Start: 10-26-2022 End: 10-26-2022 Patient encounter procedure 10/26/2022 Office Visit Primary Care Laz Portillo MD [address] [place] [id number] [facility] Start: 10-25-2022 COVID-19 Vaccine (3 - Booster for Moderna series) COVID-19 Vaccine (3 - Booster for Moderna series) [facility] Comment on above: Postponed from 09/20 (Patient Refused) Start: 09-24-2022 Pneumococcal 65+ yea rs Vaccine (1 - PCV) Pneumococcal 65+ years Vaccine (1 - PCV) [facility] Comment on above: Postponed from 02/21 (Patient Refused) Start: 08-16-2022 End: 08-16-2022 Xcapsl ctrc rmvl insj io lens prosth w/o ecp EYE CATARACT EMULSIFICATION IOL IMPLANT Cataract of right eye, unspecified cataract type 08/16/2022 1:34 PM EDT [facility] Start: 07-25-2022 Shingles vaccine (1 of 2) Shingles vaccine (1 of 2) [facility] Comment on above: Postponed from 02/21 (Patient Refused) Start: 07-25-2022 End: 07-25-2022 Patient encounter procedure 07/25/2022 Office Visit Primary Care Mary Katz, BLOCK ENGRAVER - NURSING SUPPORT WORKER [address] [place] [address] [facility] Start: 07-12-2022 End: 07-12-2022 Xcapsl ctrc rmvl insj io lens prosth w/o ecp EYE CATARACT EMULSIFICATION IOL IMPLANT Cataract, nuclear sclerotic, left eye 07/12/2022 1:33 PM [facility] Start: 05-13-2022 ADVANCE DIRECTIVE DISCUSSION ADVANCE DIRECTIVE DISCUSSION [facility] Start: 05-13-2022 DEPRESSION ASSESSMENT DEPRESSION ASS ESSMENT [facility] Start: 01-11-2022 Influenza vaccination INFLUENZA (Sea son Ended) [facility] Start: 10-02-2021 End: 09-23-2022 CBC W Auto Differential panel - Blood CBC + DIFF Lab Routine Malignant neoplasm of upper-outer quadrant of left breast in female, estrogen receptor positive (HCC) 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 therapy Expected: 10/02/2021 (Approximate), Expires: 09/23/2022 [facility] Work Phone: Comment on above: Expected: 10/02/2021 (Approximate), Expires: 09/23/2022 Start: 10-02-2021 End: 09-23-2022 Comprehensive metabolic 2000 panel - Serum or Plasma COMP METABOLIC PANEL Lab Routine Malignant neoplasm of upper-outer quadrant of left breast in female, estrogen receptor positive (HCC) 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 therapy Expected: 10/02/2021 (Approximate), Expires: 09/23/2022 [facility] Work Phone: Comment on above: Expected: 10/02/2021 (Approximate), Expires: 09/23/2022 Start: 10-02-2021 End: 12-02-2021 VITAMIN D 25 HYDROXY VITAMIN D 25 HYDROXY Lab Routine Malignant neoplasm of upper-outer quadrant of left breast in female, estrogen receptor positive (HCC) 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 therapy Expected: 10/02/2021 (Approximate), Expires: 12/02/2021 [facility] Work Phone: Comment on above: Expected: 10/02/2021 (Approximate), Expires: 12/02/2021 Start: 09-20-2021 Creatinine measurement Creatinine mo [facility] Work Phone: Start: 09-20-2021 Potassium monitoring Potassium monit [facility] Work Phone: Start: 05-13-2021 ADVANCE DIRECTIVE DISCUSSION ADVANCE DIRECTIVE DISCUSSION [facility] Start: 01-13-2021 End: 01-13-2021 Patient encounter procedure 01/13/2021 Office Visit Family Laz Pendleton MD [address] [place] [address] [phone] [facility] Start: 01-11-2021 Influenza vaccination Flu vaccine (# 1) [facility] Work Phone: Start: 10-28-2020 Adult depression screening assessment DEPRESSION SCREENING [facility] Start: 09-28-2020 End: 09-28-2020 Patient encounter procedure 09/28/2020 Office Visit Family Laz Pendleton MD [address] [place] [address] [phone] Laz Portillo [facility] Start: 09-20-2020 COVID-19 VACCINE (3 - Booster for Moderna series) COVID-19 VACCINE (3 - Booster for Moderna series) [facility] Start: 09-20-2020 COVID-19 VACCINE (3 - Moderna series) COVID-19 VACCINE (3 - Moderna series) [facility] Start: 08-23-2020 COVID-19 VACCINE (3 - Moderna risk series) COVID-19 VACCINE (3 - Moderna risk series) [facility] Start: 07-30-2020 Breast cancer screen Breast cancer s creen [place] Start: 07-30-2020 Screening for malign ant neoplasm of breast Breast cancer screen [place] Start: 07-27-2020 Annual Wellness Visi t (AWV) Annual Wellness Visit (AWV) [place] Start: 02-10-2020 End: 02-10-2020 Office Visit 02/10/2020 Office Visit Family Laz Pendleton MD [address] [place] [address] [phone] Laz Portillo MD [facility] Start: 02-03-2020 End: 02-03-2020 Office Visit 02/03/2020 Office Visit Family Medicine Laz Portillo MD [address] [place] [address] [phone] Laz Portillo [facility] Start: 01-31-2020 Breast cancer screen Breast cancer s crerani [place] Start: 01-12-2020 Influenza vaccination Flu vaccine (# 1) [place] Start: 10-23-2019 End: 10-23-2019 Office Visit 10/23/2019 Office Visit Family Medicine Laz Portillo MD [address] [place] [address] [phone] Laz Portillo [facility] Start: 05-23-2019 Creatinine measurement Creatinine mo nitoring [place] Start: 05-23-2019 Creatinine monitoring Creatinine mon [place]oring [place] Start: 05-23-2019 Potassium monitoring Potassium monit oring [place] Start: 01-11-2019 Influenza vaccination Flu vaccine (# 1) [place] Start: 10-08-2018 Annual Wellness Visi t (AWV) Annual Wellness Visit (AWV) [place] Start: 02-21-2013 Pneumococcal 65+ yea rs Vaccine (1 of 1 - PPSV23) Pneumococcal 65+ years Vaccine (1 of 1 - PPSV23) [place] Start: 02-21-2013 Pneumococcal 65+ yea rs Vaccine (1 of 2 - PCV13) Pneumococcal 65+ years Vaccine (1 of 2 - PCV13) [place] Start: 02-21-2013 PNEUMOCOCCAL: 65+ (1 - PCV) PNEUMOCOCCAL: 65+ (1 - PCV) [facility] Start: 02-21-2013 PNEUMOVAX AGE 65 AND OVER WITH 5YR LOOKBACK (#1) PNEUMOVAX AGE 65 AND OVER WITH 5YR LOOKBACK (#1) [facility] Start: 02-21-1998 Shingles Vaccine (1 of 2) Shingles Vaccine (1 of 2) [facility] Start: 02-21-1998 SHINGRIX VACCINE (1 of 2) SHINGRIX VACCINE (1 of 2) [facility] Start: 02-21-1993 COLOGUARD (FIT-DNA) COLOGUARD (FIT-D NA) [facility] Start: 02-21-1993 Colonoscopy COLONOSCOPY [facility] Start: 02-21-1993 COLORECTAL CANCER SCREENING COLORECTAL CANCER SCREENING [facility] Start: 02-21-[address] COLONOGRAPHY [facility] Start: 02-21-1993 FECAL OCCULT BLOOD FECAL OCCULT BLOO D [facility] Start: 02-21-1993 LIPID SCREEN LIPID SCREEN [facility] Start: 02-21-1993 Screening for malign ant neoplasm of colon [facility] Start: 02-21-1993 SIGMOIDOSCOPY SIGMOIDOSCOPY [facility] Start: 1988 Mammography MAMMOGRAM [facility] Start: 02-21-1967 DTaP/Tdap/Td vaccine (1 - Tdap) DTaP/Tdap/Td vaccine (1 - Tdap) [facility] [place] Start: 02-21-1967 Urine microalbumin profile DTAP,TDAP,TD (1 - Tdap) [facility] Start: 02-21-1966 ANNUAL PCP TEAM CERTIFIED SURGICAL TECH/FIRST ASSISTANT FELIZ DISEASE VISIT ANNUAL PCP TEAM CHRONIC DISEASE VISIT [facility] Start: 02-21-1966 BP CONTROLLED (<130/80) BP CONTROLLE D (<130/80) [facility] Start: 02-21-1966 HEPATITIS C SCREENING HEPATITIS C SC TRISTA [facility] Start: 02-21-1954 PNEUMOCOCCAL: 65+ (1 - PCV) PNEUMOCOCCAL: 65+ (1 - PCV) [facility] End: 07-21-2023 CBC W Auto Differential panel - Blood CBC + DIFF Lab Routine Malignant neoplasm of upper-outer quadrant of left breast in female, estrogen receptor positive (HCC) Every 6 months for 2 Occurrences starting 07/21/2022 until 07/21/2023 [facility] Work Phone: Comment on above: Every 6 months for 2 Occurrences starting 07/21/2022 until 07/21/2023 End: 07-21-2023 Comprehensive metabolic 2000 panel - Serum or Plasma COMP METABOLIC PANEL Lab Routine Malignant neoplasm of upper-outer quadrant of left breast in female, estrogen receptor positive (HCC) Every 6 months for 2 Occurrences starting 07/21/2022 until 07/21/2023 [facility] Work Phone: Comment on above: Every 6 months for 2 Occurrences starting 07/21/2022 until 07/21/2023 End: 09-20-2020 ECHO 2D WO Color Doppler Complete ECHO 2D WO Color Doppler Complete Echocardiography Routine Syncope, unspecified syncope type 1 Occurrences starting 09/20/2020 until 09/20/2020 [employer] Work Phone: Comment on above: 1 Occurrences starti ng 09/20/2020 until 09/20/2020 End: 08-16-2022 INITIATE PACU OXYGEN THERAPY PROTOCOL Initiate PACU Oxygen Therapy Protocol Respiratory Care Routine Continuous until discontinued starting 08/16/2022 [employer] Work Phone: Comment on above: Continuous until dis continued starting 08/16/2022 End: 02-10-2024 NGUYEN DIAGNOSTIC BILATERAL NGUYEN DIAGNOSTIC BILATERAL Radiology Routine Malignant neoplasm of upper-outer quadrant of left breast in female, estrogen receptor positive (HCC) 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 therapy 1 Occurrences starting 01/11/2023 until 02/10/2024 [facility] Work Phone: Comment on above: 1 Occurrences starti ng 01/11/2023 until 02/10/2024 Oxygen therapy [Mini mum Data Set] Initiate Oxygen Therapy Protocol Respiratory Care Routine As Needed until discontinued starting 07/12/2022 [employer] Phone: Comment on above: As Needed until disc ontinued starting 07/12/2022 Oxygen therapy [Mini mum Data Set] Initiate Oxygen Therapy Protocol Respiratory Care Routine As Needed until discontinued starting 08/16/2022 [employer] Phone: Comment on above: As Needed until disc ontinued starting 08/16/2022 End: 02-03-2020 US DUP UPPER EXTREMITY LEFT VENOUS US DUP UPPER EXTREMITY LEFT VENOUS Imaging STAT Swelling of limb Malignant neoplasm of upper-outer quadrant of left breast in female, estrogen receptor positive (HCC) 1 Occurrences starting 02/03/2020 until 02/03/2020 [employer]- [place], [place] Comment on above: 1 Occurrences starti ng 02/03/2020 until 02/03/2020 [facility] Immunizations Immunization Date Immunization Notes Care Provider Ute burkett 05-09-2022 Influenza, FLUAD, (a ge 65 y+), Adjuvanted, 0.5mL Josesito Basurto MD Work Phone: [facility] 2021 Influenza, FLUAD, (a ge 65 y+), Adjuvanted, 0.5mL Josesito Basurto MD Work Phone: [facility] Work Phone: 07-26-2020 COVID-19, MODERNA BL UE border, Primary or Immunocompromised, (age 12y+), IM, 100 mcg/0.5mL Josesito Basurto MD Work Phone: [facility] 06-30-2020 COVID-19, MODERNA BL UE border, Primary or Immunocompromised, (age 12y+), IM, 100 mcg/0.5mL Josesito Basurto MD Work Phone: [facility] Work Phone: 03-09-2020 Influenza, High-dose , Quadv, 65 yrs +, IM (Fluzone) [address] 10-13-2018 diphtheria, tetanus toxoids and acellular pertussis vaccine, unspecified formulation [place], [place] 02-20-2013 seasonal influenza, intradermal, preservative free [facility] Payers Date Payer Category Payer Medicare [facility] MEDIC[facility] [id number] 2022-Present [phone] [address] [place] [address] [employer] [id number] 2021 Medicare [id number] 2020 Unknown [id number] 2014 Medicare [id number] 2014 Medicare MEDICARE MEDICAR E PART A AND B [id number] 2014-Present [phone] [place] [address] xxxxxxxxxxx [id number] 2014 Medicare MEDICARE MEDICAR E PART A AND B [id number] 2014-Present [phone] [place] [address] [id number] 2014 Unknown [employer] SUPP [id number] 2014-Present [phone] ATTN INDIVIDUAL CLAIMS [address] [place] [address] xxxxxx-[id number] 2014 Unknown [employer]IC[employer] SUPP [id number] 2014-Present [phone] ATTN INDIVIDUAL CLAIMS [address] [place] [address] [id number] 2013 Unknown [employer] MEDIC[employer] SUPPLEMENT [id number] 2013-Present [phone] [address] [place] [address] Indemnity [id number] 1959 Medicare [id number] 1959 Medicare [id number] 1948 Unknown [id number] 1948 Unknown [id number] 1948 Unknown [id number] 1948 Unknown [id number] 1948 Unknown [id number] 1948 Unknown [id number] Social History Date Type Detail Facility Start: 07-17-2019 End: 01-11-2023 Tobacco smoking status NHIS Never smoker [facility] Start: 07-17-2019 End: 07-25-2022 Alcohol intake [facility] [place] Start: 1950 Sex Assigned At Not on file [facility] [employer] [place], [place] Start: 02-03-2020 End: 01-11-2023 Tobacco use and exposure [facility] [place] Start: 10-13-2018 End: 01-11-2023 Alcohol intake No [facility] Start: 06-08-2020 End: 07-25-2022 History SDOH Social Connections Phone [employer] Phone: Start: 06-08-2020 End: 07-25-2022 History SDOH Social Connections Get Together 1 [employer] Phone: Start: 06-08-2020 End: 07-25-2022 History SDOH [employer] Membership 2 [employer] Phone: Start: 06-08-2020 History SDOH [employer] Meetings [employer] Phone: Start: 06-08-2020 End: 10-12-2021 History SDOH Social [employer]ctions Living 3 [employer] Phone: Start: 06-08-2020 History SDOH Education 12 [employer] Phone: Start: 07-02-2022 End: 08-16-2022 Exposure to SARS-CoV-2 (event) Not sure [employer] Phone: Start: 11-18-2020 End: 01-11-2023 Alcohol intake [facility] Start: 03-23-2021 End: 01-11-2023 Alcohol intake Current drinker of alcohol (finding) [facility] Start: 06-24-2018 History SDOH Alcohol Comment rarely [facility] Adult Depression Screening Assessment 0 [facility] NEGATED: Highlighted rowStart: NINF History of tobacco use Passive smoker [facility] Medical Equipment Procedure Code Equipment Code Equipment Origin al Text Equipment Identifier Dates Lens Iol Sn60wf 15.0d - [id number] Start: 07-12-2022 Comment on above: Description: No karime ge for lens implant - included in procedure Lens Io +170 Sai pt L13mm Dia6mm 0deg Haptic Ang A Constant - [id number] Start: 08-16-2022 Comment on above: Description: No karime ge lens - included in procedure Clinical Notes 05-20-2020 to 01-11-2023 Tessa Gao RN - 01/11/2023 3:14 PM Allyssa Hicks APRN.CNP - 01/11/2023 2:22 PM EDTDischarge InstructionsTelephone Encounter - Eve Bhakta - 07/17/2022 3:35 PM ESTDischarge Instructions Note Date & Type Note Facility 01-11-2023 Note HNO ID: [id number] Author: Tessa Gao RN Service: ? Author Type: Registered Nurse Type: Progress Notes Filed: 01/11/2023 4:02 PM Note Text: [id number] Sunni Ribeiro [id number] [facility] 01-11-2023 Note HNO ID: [id number] Author: Allyssa Lopez APRN.CNP Service: ? Author [...] ductal carcinoma, largest invasive component 0.8 cm. ER/WA positive, HER-2 negative, Oncotype recurrence score low (8). Surgical margins negative. The patient underwent a left axillary sentinel node procedure 07/08/2018, and 0 of 15 lymph nodes were involved. Monoallelic mutation of PALB2 gene - ICD9: V84.01, V84.89, V84.09, ICD10: Z15.01, Z15.89, Z15.09 Heterozygous PALB2 mutation of unclear significance identified on [facility] genetic analysis 07/08/2018. Per medical genetics this [...] as return. Continue Vit D and Calcium ldgu-zey-lkshxal. INTERIM HISTORY: Updated Visit, January 11, 2023: [...] that she would lose coverage here at [facility]. Lost her last August 2021 He had [...] currently on arimidex. 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 [facility] 01-11-2023 History of Presen t illness Narrative [id number] Sunni Ribeiro [id number] documented in this encounter [facility] 01-11-2023 History of Presen t illness Narrative [...] ductal carcinoma, largest invasive component 0.8 cm. ER/WA positive, HER-2 negative, Oncotype recurrence score low [...] as return. Continue Vit D and Calcium kowr-rfr-xrjxwhp. INTERIM HISTORY: Updated Visit, January 11, 2023: [...] that she would lose coverage here at [facility]. Lost her last August 2021 He had [...] currently on arimidex. 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 Recommendations: Routine mammogram and clinical evaluation in 12 months. 03/03/2021 DEXA scan ([place]) Osteopenic. 03/03/2021 Bilateral diagnostic mammogram ([place]) Findings: Diagnostic category-benign findings. Recommendations: Routine mammogram and clinical evaluation in 12 months. 03/02/2020 Bilateral Diagnostic Mammogram ([place]) Findings: Diagnostic category 2-benign findings. Recommendations: Routine mammogram and clinical evaluation in 12 months. 07/28/2018 Bone Density ([facility]) Normal. Allyssa Lopez APRN.NURSING SUPPORT WORKER Hematology and Oncology Services Provided at: [place], [place] CC: Dr. Sulaiman Bronson (General Surgery [facility]) I spent a total of 30 minutes on the date of the service which included preparing to see the patient, mtry-gq-dktt patient care, completing clinical documentation, obtaining and/or reviewing separately obtained history, performing a medically appropriate examination, counseling and educating the patient/family/caregiver, ordering medications, tests, or procedures, independently interpreting results (not separately reported), and communicating results to the patient/family/caregiver. documented in this encounter [facility] 08-13-2022 Hospital Discharg e rolando Basurto MD [...] Basurto if you have any problems: Office [phone] 8. Continue all your previous medications. You may use Aspirin, Tylenol, or Advil if needed. 9. You have an appointment in the office: 10. Please bring your drops into the office at your next visit. documented in this encounter [facility] [employer] Phone: 07-20-2022 Note HNO ID: [id number] Author: Gato Cano MD Service: ? Author [...] ductal carcinoma, largest invasive component 0.8 cm. ER/WA positive, HER-2 negative, Oncotype recurrence score low [...] that she would lose coverage here at [facility]. Lost her last August 2021 He had [...] currently on arimidex. 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 [facility] 07-17-2022 Miscellaneous Notes Formattin g of this note might be different from the original. Orders are . Please sign and/or add labs. Eve Bhakta documented in this encounter [facility] 07-05-2022 Hospital Discharg e instructions Rosi Costa [...] Basurto if you have any problems: Office [phone] 8. Continue all your previous medications. You [...] if your caregiver approves them. Only take jyjp-tsb-jeyfxtu or prescription medicines for pain, discomfort, or [...] Document Reviewed: 08/27/2012 ExitCare Patient Information 2013 [employer]. documented in this encounter [employer] Work Phone: 05-30-2022 Evaluation note Encounter Date [...] no improvement in 2 to 3 days [employer] Other 05-24-2022 Miscellaneous Notes* Telephone Encounter - Laura Barber - 10/03/2021 11:29 AM EDT Spoke with patient and informed of Dr. Thomas recommendation patient was very happy with this and asked that we send her records to [facility] when Dr. Pinto is there so that she can follow up with him and she will see him in later december. Ángela can you please forward the patients records to [facility]. * Telephone Encounter - Laura Barber - 10/02/2021 10:00 AM EDT LVM for patient please inform patient of Dr. Thomas message give patient phone number to [employer] [phone]. * Telephone Encounter - Gustavo Pinto MD - 09/30/2021 5:37 PM EDT Happy to see her! Thanks. * Telephone Encounter - Gato Cano MD - 09/30/2021 10:35 AM EDT She should see Dr. Pinto when he starts in [place]. * Telephone Encounter - Laura Stevenson Pss - 09/28/2021 2:17 PM EDT Spoke with patient due to her insurance changing PFA denied her coming to [facility] because she is out ofnetwork and this would cause the patient a high out of pocket cost Dr. Antonio the patient would like to know who you would like to refer her to in this case? Please advise [facility] Miscellaneous Notes* Telephone Encounter - Oumou Callahan MA - 09/22/2021 12:12 PM EDT Patient has an appt on 10/02/21. Would you like labs, if so place orders. Oumou Callahan MA documented in [facility] encounter[facility]11-10-2021 NoteEducation Materials Pulmonary Medicine Bronchospasm, Adult Bronchospasm is when airways in the lungs get smaller. When this happens, it can be hard to breathe. You may cough. You may also make a whistling sound when you breathe (wheeze). Follow these instructions at home: Medicines ? Take wvby-frh-ikpxisi and prescription medicines only as told by [...] provider. Document Revised: 04/11/2018 Document Reviewed: 05/02/2017 [employer] Patient Education ? 2020 [employer] Asthma, Adult Asthma is a long-term [...] pollute the air. These may include household zyglo technician, wood smoke, smog, or chemical odors. ? [...] you are not home. 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 + + + (more content not included)...[employer] Phone: 1(486) 953-663401-14-2021 Note [id number]01-08-2021 NotePatient Education Materials Follows:and Gynecology Urinary [...] these instructions at home: Medicines ? Take efpq-clg-vgbdijs and prescription medicines only as told by [...] 10/15/2008 Document Revised: 04/16/2019 Document Reviewed: 11/06/2018 [employer] Patient Education ? 2020 [employer].[facility] * Diagnosis Syncope, unspecified syncope type documented in this encounter [employer] Phone: evaluation note* Diagnosis Hypertension, unspecified type Fatigue, unspecified type documented in this encounter [employer] Phone: evaluation note* Diagnosis Malignant neoplasm of upper-outer quadrant of left breast in female, estrogen receptor positive (HCC)- Primary 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 therapy Disorder of bone and cartilage, unspecified [facility] Diagnosis Malignant neoplasm of upper-outer quadrant of left breast in female, estrogen receptor positive (HCC)- Primary [facility] encounter [facility]* Diagnosis Malignant neoplasm of upper-outer quadrant of left breast in female, estrogen receptor positive (HCC)- Primary 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 therapy Disorder of bone and cartilage, unspecified [facility] encounter [facility]* Diagnosis 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 therapy- Primary Disorder of bone and cartilage, unspecified Malignant neoplasm of upper-outer quadrant of left breast in female, estrogen receptor positive (HCC) documented in this encounter [facility] general Narrative - Reported* Type Description Date Medical History Asthma Medical History HTN (hypertension) Medical History Anxiety Medical History Glaucoma Surgical History hysterectomy Surgical History cholecystectomy Surgical History breast cancer [employer] Other Reason for referral (narrative)* Diagnostic Procedure Only (Routine) - Pending Review Specialty Diagnoses / Procedures Referred By Contac t Referred To Contact [facility] Diagnoses Malignant neoplasm of upper-outer quadrant of left breast in female, estrogen receptor positive (HCC) 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 therapy Procedures NGUYEN DIAGNOSTIC BILATERAL DIAGNOSTIC MAMMOGRAPHY COMPUTER-AIDED DETCJ Allyssa Mejia APRN.CNP [address] [place] [address] [place] [address] [facility] [address] [place] [phone] Referral ID Status Reason Start Date Expiration Date Visits Requested Visits Authorized [id number] Pending Review Auto-Generat ed Referral 01/11/2023 02/10/2024 1 1 [facility] Summary Purpose Family History No Family History Records FoundNo Family History Records FoundNo Family History Records FoundNo Family History Records FoundNo Family History Records Found Advance Directives No Advanced Directives Records FoundDocuments on File Type Date Recorded 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 Advance Directives and Living Will Power of Wire Coating Machine Operator Documents on File Type Date Recorded 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 Advance Directives and Living Will Power of Wire Coating Machine Operator Documents on File Type Date Recorded 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 ACP-Advance Directive ACP-Power of Wire Coating Machine Operator Documents on File Type Date Recorded 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 ACP-Advance Directive ACP-Power of Wire Coating Machine Operator Latest Code Status on File Code Status [...] OR WO CAD LEFT Estiven Canela MD [address] [place] [address] [place] [address] Status Reason Specialty Diagnoses / Procedures Referre d By Contact Referred To Contact Closed Radiology Diagnoses Swelling of limb Malignant neoplasm of upper-outer quadrant of left breast in female, estrogen receptor positive (HCC) Procedures US DUP UPPER EXTREMITY LEFT VENOUS Laz Portillo MD [address] [place] [id number] Status Reason Specialty Diagnoses / Procedures Referred By Contact Referred To Contact Authorized Radiology Diagnoses History of breast cancer Procedures NGUYEN DIGITAL DIAGNOSTIC W OR WO CAD BILATERAL Sulaiman Bronson MD [address] [place] [phone] Status Reason Specialty Diagnoses / Procedures Referred By Contact Referred To Contact Pending Review Radiology Diagnoses Lump in female breast Procedures US BREAST LIMITED LEFT Sulaiman Bronson MD [address] [place] [address] Status Reason Specialty Diagnoses / Procedures Referre d By Contact Referred To Contact Closed Diagnoses Syncope, unspecified syncope type Procedures ECHO 2D WO Color Doppler Complete Laz Portillo MD [address] [place] [address] Assessments Diagnosis Abnormal mammogram Abnormal mammogram, unspecified [...] 01/11/2023 3:15 PM EDT 650 mg zoledronic hz-lybicuih-6.9NaCl 4 mg iv piggyback 100 mL (ZOMETA) 4 mg, INTRAVENOUS, Administer over 15 Minutes, ONCE, 1 dose, On Sat01/11/23 at 1530, Hazardous Potential Reproductive Risk Drug: Use appropriate PPE. New Bag/Syringe/Bottle 01/11/2023 3:43 PM EDT 4 mg Additional Source Comments INFORMATION SOURCE (unrecogn ized section and content) DATE CREATED AUTHOR 12/31/2017 [facility] DATE CREATED AUTHOR AUTHOR'S ORGANIZ ATION 03/31/2021 [facility] DATE CREATED AUTHOR AUTHOR'S ORGANIZ ATION 07/07/2022 [facility] DATE CREATED AUTHOR AUTHOR'S ORGANIZ ATION 08/18/2022 [facility] DATE CREATED AUTHOR AUTHOR'S ORGANIZ ATION 01/15/2023 [facility] Reason for Visit (unrecogniz ed section and content) Status Reason Specialty Diagnoses / Procedures Referre d By Contact Referred To Contact Open Radiology Diagnoses Personal history of malignant neoplasm of breast Procedures HC MAMMO DGX UNILATERAL INCL CAD IF PERF Keegan Canela T [address] [place] [address] [facility] [address] [place] [address] Status Reason Specialty Diagnoses / Procedures Referre d By Contact Referred To Contact Closed Radiology Diagnoses Swelling of limb Malignant neoplasm of upper-outer quadrant of left breast in female, estrogen receptor positive (HCC) Procedures US DUP UPPER EXTREMITY LEFT VENOUS Lza Portillo MD [address] [place] [address] Status Reason Specialty Diagnoses / Procedures Referre d By Contact Referred To Contact Open Radiology Diagnoses Malignant neoplasm of unspecified site of left female breast Procedures HC MAMMO DGX BILATERAL INCL CAD IF PERF Sulaiman Bronson MD [address] [place] [address] [address] Status Reason Specialty Diagnoses / Procedures Referred By Contact Referred To Contact Pending Review Radiology Diagnoses Malignant neoplasm of unspecified site of left female breast Procedures HC US BREAST LTD Sulaiman Bronson MD [address] [place] [address] [address] Status Reason Specialty Diagnoses / Procedures Referred By Contact Referred To Contact Authorized Cardiology Diagnoses Hypertension, unspecified type Syncope, unspecified syncope type Procedures [address] - WA Duplex Scan Extracranial, Luis M Laz Portillo MD [address] [place] [address] Status Reason Specialty Diagnoses / Procedures Referre d By Contact Referred To Contact Closed Diagnoses Syncope, unspecified syncope type Procedures ECHO 2D WO Color Doppler Complete Laz Portillo MD [address] [place] [address] Reason Comments Lab Orders Reason Comments Patient Update Specialty Diagnoses / Procedures Referred By Contac t Referred To Contact Diagnoses Cataract, nuclear sclerotic, left eye Cataract, nuclear sclerotic, left eye [H25.12] Procedures WA XCAPSL CTRC RMVL INSJ IO LENS PROSTH W/O ECP EYE CATARACT EMULSIFICATION IOL IMPLANT LEFT EYE PERIBULBAR ; Josesito Dawn MD [address] [facility] [address] [place] [address] [facility] [id number] [place] [address] Referral ID Status Reason Start Date Expiration Date Visits Re quested Visits Authorized [id number] 1 1 Specialty Diagnoses / Procedures Referred By Contac t Referred To Contact Diagnoses Cataract of right eye, unspecified cataract type Cataract of right eye, unspecified cataract type [H26.9] Procedures WA XCAPSL CTRC RMVL INSJ IO LENS PROSTH W/O ECP EYE CATARACT EMULSIFICATION IOL IMPLANT Josesito Basurto MD [address] [facility] [address] [place] [address] [facility] [address] [place] [address] Referral ID Status Reason Start Date Expiration Date Visits Re quested Visits Authorized [id number] 1 1 Reason Comments Breast Cancer Specialty Diagnoses / Procedures Referred By Contac t Referred To Contact Diagnoses Malignant neoplasm of upper-outer quadrant of left breast in female, estrogen receptor positive (HCC) 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 therapy Procedures INJECTION, ZOLEDRONIC ACID, 1 MG Gato Cano MD [address] [place] [address] [place] [address] [address] Treat [address] [place] [address] Referral ID Status Reason Start Date Expiration Date V isits Requested Visits Authorized [id number] Authorized 07/20/2022 01/19/2023 1 1 Source Comments (unrecognize d section and content) In the event this informatio n is protected by the Federal Confidentiality of Alcohol and Drug Abuse Patient Records regulations: The Federal rules restrict any use of the information to criminally investigate or prosecute any alcohol or drug abuse patient.[facility] HealthIn the event this information is protected by the Federal Confidentiality of Alcohol and Drug Abuse Patient Records regulations: The Federal rules restrict any use of the information to criminally investigate or prosecute any alcohol or drug abuse patient.[facility] HealthIn the event this information is protected by the Federal Confidentiality of Alcohol and Drug Abuse Patient Records regulations: The Federal rules restrict any use of the information to criminally investigate or prosecute any alcohol or drug abuse patient.[facility] HealthIn the event this information is protected by the Federal Confidentiality of Alcohol and Drug Abuse Patient Records regulations: The Federal rules restrict any use of the information to criminally investigate or prosecute any alcohol or drug abuse patient.[facility] HealthIn the event this information is protected by the Federal Confidentiality of Alcohol and Drug Abuse Patient Records regulations: The Federal rules restrict any use of the information to criminally investigate or prosecute any alcohol or drug abuse patient.[facility] Care Teams (unrecognized sec tion and content) Decision Unit Rn Relationship Specialty Start Date End Date Laz Portillo MD [address] [place] [address] PCP - General Family Practice 06/24/18 Decision Unit Rn Relationship Specialty Start Date End Date Laz Portillo MD [address] [place] [address] PCP - General Family Practice 06/24/18 Decision Unit Rn Relationship Specialty Start Date End Date Laz Portillo MD [address] [place] [address] PCP - General Family Medicine 11/12/19 Decision Unit Rn Relationship Specialty Start Date End Date Laz Portillo MD [address] [place] [address] PCP - General Family Medicine 06/24/18 Decision Unit Rn Relationship Specialty Start Date End Date Laz Portillo MD [address] [place] [address] PCP - General Family Medicine 11/12/19 Decision Unit Rn Relationship Specialty Start Date End Date Laz Portillo MD [address] [place] [address] PCP - General Family Medicine 06/24/18 Decision Unit Rn Relationship Specialty Start Date End Date Laz Portillo MD [address] [place] [address] PCP - General Family Medicine 06/24/18 Scheduled [...] 5 MIN PRN, 3 doses, Starting on Hcayo 3//23 at 1124, Until Chayo 3//23 at [...] Josesito Basurto MD - Comment: FOR BLOCK) rehqfxdj-ezgtpitrx-kyxorhen ophthalmic ointment (CANCELED) PRN, Starting on Chayo [...] minutes, starting 20 minutes prior to surgery, [facility] - enter number of doses based [...] minutes, starting 20 minutes prior to surgery, [facility] - enter number of doses based [...] (NoRateChange - Provider: Pacheco Mckeon APRN - OTOLARYNGOLOGY TEACHER) PRN Medication Order 08/14/2022 08/15/2022 08/16/2022 [...] Josesito Basurto MD - Comment: PERIBULBAR BLOCK) dmgbucsr-xbbouluwr-emhxvskm ophthalmic ointment (CANCELED) PRN, Starting on Chayo [...] BE BASED ON THE PRIMARY CLINICAL RECORDS. [employer] [facility]. provides no warranty or guarantee of the accuracy or completeness of information in this document.
== END 2023-07-04 14:44 | disposition home or self-care (01) ==
LOC: MAMMO 14:45
PROVIDERS: Visit Provider Nurse Practitioner Family
DX: C50.412 Malignant neoplasm of upper-outer quadrant of left female breast (principal); Z17.0 Estrogen receptor positive status [ER+]; M85.80 Other specified disorders of bone density and structure, unspecified site
CPT/HCPCS: 77066; G0279

== ENCOUNTER 2023-08-22 15:51 | Outpatient (OUT) | payer OTHER, SELFPAY ==
--- NOTE | 2023-08-22 16:04 | XR_ITS ---
The [address] [address] Patient Name: NU RIBEIRO MRN: [id number] date: 1950 Sex: F Assigned Patient Location: [facility] Current Patient Location: Accession/Order Number: [id number] Exam Date: 08/22/2023 16:05 Report Date: 08/23/2023 07:55 At the request of: NON-STAFF PHYSICIAN Procedure: XR knee RT 2V PROCEDURE: XR knee RT 2V HISTORY: pain and swelling of right knee COMPARISON: None. FINDINGS: BONES:Mild narrowing of the medial joint space with large periarticular degenerative osteophytes. Small osteophytes along margins of the anterior and lateral compartments. No fracture, dislocation, bone lesion. SOFT TISSUES:No visible soft tissue swelling. EFFUSION:None visible. OTHER: Negative. XR/XR knee RT 2V IMPRESSION: 1. Moderate degenerative joint disease. No acute abnormality. Electronically authenticated by: KRANTHI NIXON Date: 08/23/2023 07:55
== END 2023-08-22 15:52 | disposition home or self-care (01) ==
LOC: RAD 15:53
DX: M25.561 Pain in right knee (principal); M25.461 Effusion, right knee; M17.11 Unilateral primary osteoarthritis, right knee
CPT/HCPCS: 73560

== ENCOUNTER 2023-11-22 09:40 | Outpatient (OUT) | payer OTHER, SELFPAY ==
--- NOTE | 2023-11-22 09:45 | MR_ITS ---
[address] [address] Patient Name: NU RIBEIRO MRN: [id number] date: 1950 Sex: F Assigned Patient Location: MRI Current Patient Location: Accession/Order Number: [id number] Exam Date: 11/22/2023 10:00 Report Date: 11/25/2023 07:32 At the request of: CELE ESCAMILLA Procedure: MR knee RT wo con EXAMINATION: MR knee RT wo con HISTORY: Pain And Swelling Of Right Knee COMPARISON: No relevant comparison available. TECHNIQUE: A complete multi-planar MRI was performed. FINDINGS: MEDIAL COMPARTMENT MEDIAL MENISCUS: There is a macerated extruded appearance of the medial meniscus with complex tear of the posterior horn CARTILAGE: Moderate to marked chondromalacia BONES: Moderate to severe osteoarthritis with joint space narrowing marginal osteophyte formation MCL AND MEDIAL CAPSULE: Normal medial collateral ligament and medial capsule. LATERAL COMPARTMENT LATERAL MENISCUS: No visible tear or significant degeneration. CARTILAGE: Mild chondromalacia BONES: Moderate osteoarthritis with marginal osteophyte formation LCL/POSTEROLAT COMPLEX: Normal lateral collateral ligament, fascicles, lateral capsule and ligaments. ANTERIOR COMPARTMENT PATELLA: No acute fracture or dislocation. Degenerative changes with marginal osteophyte formation CARTILAGE: Mild chondromalacia TENDONS: Normal. EFFUSION: Moderate joint effusion. ACL: Chronic ACL rupture PCL: Normal appearing ligament. MENISCOFEMORAL: Normal meniscofemoral ligaments. OTHER: Negative. MR/MR knee RT wo con IMPRESSION: Moderate to severe tricompartmental osteoarthritis Macerated extruded medial meniscus Chronic ACL rupture Electronically authenticated by: DEVAN RIZZO Date: 11/25/2023 07:32
== END 2023-11-22 09:41 | disposition home or self-care (01) ==
LOC: MRI 09:40
PROVIDERS: Visit Provider Nurse Practitioner Family
DX: M25.561 Pain in right knee (principal); M25.461 Effusion, right knee; M17.11 Unilateral primary osteoarthritis, right knee
CPT/HCPCS: 73721

== ENCOUNTER 2024-02-21 19:19 | Emergency (ER) | payer OTHER, SELFPAY ==
--- OUTSIDE RECORDS SUMMARY | 2024-02-21 19:28 | XMS_ITS | CCD ---
Author Organization [facility] CliniSyor Care Team Providers Care Adoption Services Manager Name Role Phone TRIPP PORTILLO Unavailable Unavailable LAZ PORTILLO Unavailable Unavailabl TRIPP Herrera Unavailable Unavailable LAZ PORTILLO Unavailable Unavailabl Sulaiman Osorio Primary Care Provider Laz Portillo Primary Care Provider [phone] Laz Portillo MD Primary Care Provider Laz Portillo MD Primary Care Provider Laz Portillo MD Primary Care Provi jesus YIN, DR ADORNO Primary Care Unavailable SHERRY WILKINSON Admitting Unavailable SHERRY WILKINSON Attending Unavailable KIM PHELAN Consulting Unavailable DEREK VALDEZ Consulting Unavailable JOHN, DR ALLYSSA Romero Admitting Unavailable JOHN, DR ALLYSSA Romero Attending Unavailable YIN, DR ADORNO Primary Care Unavailable HUSSAIN, DR KRANTHI Rodriges Consulting Unavailable DR ALLYSSA LOPEZ Consulting Unavailable SAMSA ., GARO Admitting Unavailable SAMSA ., GARO Attending Unavailable MISC, DR ADORNO Primary Care Unavailable SAMSA ., GARO Consulting Unavailable Татьяна Guerrero Unavailable Laz Portillo MD Primary Care Provider Laz Portillo MD Primary Care Provi jesus LAZ PORTILLO Primary Care Unavailabl e BASURTO, JOSESITO Referring Unavailable BASURTO, JOSESITO Admitting Unavailable BASUROT, JOSESITO Attending Unavailable LAZ PORTILLO Primary Care Unavailabl e BASURTO, JOSESITO Admitting Unavailable BASURTO, JOSESITO Attending Unavailable RAGOTHAMAN, LAZ M Primary Care Unavailabl e RAGOTHAMAN, LAZ DANIELLE Primary Care Unava ilable RAGOTHAMAN, LAZ DANIELLE Primary Care Unava ilable ALLYSSA LOPEZ Attending Unavailable ABHYANKAR, GATO Referring Unavailable ABHYANKAR, GATO Referring Unavailable RAGOTHAMAN, LAZ DANIELLE Primary Care Unava ilable RAGOTHAMAN, LAZ DANIELLE Primary Care Unava ilable ABHYANKAR, GATO Attending Unavailable RAGOTHAMAN, LAZ DANIELLE Primary Care Unava ilable ABHYANKAR, GATO Referring Unavailable RAGOTHAMAN, LAZ DANIELLE Primary Care Unava ilable ABHYANKAR, GATO Referring Unavailable RAGOTHAMAN, LAZ DANIELLE Primary Care Unava ilable ABHYANKAR, GATO Attending Unavailable ABHYANKAR, GATO Referring Unavailable Ragothaman MD [facility] Primary Care Provi jesus DESIREE TOM Attending Unavailable DESIREE TOM Attending Demetrice BORRERO JR., BOLA Doan Attending Sophie BORRERO JR., BOLA Doan Referring Unavaila toan BORRERO JR., BOLA Doan Attending Unavaila toan Medications Current Medications Medication Drug Class(es) Dates Sig (Normalized) Sig (Original) anastrozole 1 mg oral tablet (20 sources) Aromatase Inhibitor Start: 08-07-2018 End: 12-23-2023 take 1 tablet by mouth once daily anastrozole (ARIMIDEX) 1 mg tablet Indications: Malignant neoplasm of upper-outer quadrant of left breast in female, estrogen receptor positive (HCC) Take 1 tablet by mouth once daily 90 tablet 0 12/23/2023 Active Comment on above: Take 1 tablet by raad once daily. 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 180 tablet 3 07/20/2022 Active Comment on above: Take 1 tablet by raad th twice daily. calcium chloride 0.0014 meq/ml / potassium chloride [...] (CILOXAN) 0.3 % ophthalmic solution 1 drop cranberry extract-multivitamin 500 mg/5 gram pwpk (9 sources) cranberry extract-multivitamin 500 mg/5 gram pwpk Take by mouth. 0 Active Comment on above: Take by mouth. 1 ml diphenhydrAMINE hydrochloride 50 mg/ml cartridge (1 source) Histamine-1 Receptor Antagonist Start: 08-17-19 End: 08-18-19 diphenhydrAMINE (BENADRYL) injection 12.5 mg dorzolamide 20 mg/ml ophthalmic solution (1 source) Carbonic Anhydrase Inhibitor Dorzolamide HCl 2 % Ophthalmic for 25 Days Active 1 ml fentaNYL 0.05 mg/ml injection (2 sources) Opioid Agonist Start: 08-17-19 fentaNYL (SUBLIMAZE) injection 50 mcg Start: 08-16-2022 fentaNYL (SUBL IMAZE) injection 25 mcg FLUoxetine 40 mg oral capsule (20 sources) Serotonin Reuptake Inhibitor Start: 04-11-2018 End: 08-13-2022 FLUoxetine HCl (PROZAC) 40 mg capsule Take 40 mg by mouth. 0 04/11/2018 Active Comment on above: Take 40 mg by mouth. fluticasone propionate 0.05 mg/actuat metered dose nasal spray (1 source) Corticosteroid Start: 05-30-2022 take 2 spray(s) nasal route once daily Fluticasone Propionate 50 MCG/ACT 2 sprays Nasally Once a day for 14 day(s) May, Active 120 actuat fluticasone propionate 0.115 mg/actuat / salmeterol 0.021 mg/actuat metered dose inhaler (9 sources) Corticosteroid, beta2-Adrenergic Agonist Start: 09-20-2021 take 2 puff(s) by mouth twice daily ADVAIR HFA 115-21 mcg/actuation inhaler INHALE 2 PUFFS BY MOUTH TWICE DAILY RINSE MOUTH AFTER USE 0 06/20/2022 Active Comment on above: INHALE 2 PUFFS BY MO UTH TWICE DAILY RINSE MOUTH AFTER USE fluticasone-umeclid in-vilanter (TRELEGY ELLIPTA) 200-62.5-25 mcg inhalation powder (4 sources) Start: 06-07-2023 take 1 puff(s) by mouth once daily fluticasone-umecl idin-vilanter (TRELEGY ELLIPTA) 200-62.5-25 mcg inhalation powder INHALE 1 PUFF BY MOUTH ONCE DAILY (RINSE AFTER USE) 0 06/07/2023 Active Comment on above: INHALE 1 PUFF BY RAAD TH ONCE DAILY (RINSE AFTER USE) ketorolac tromethamine 5 mg/ml ophthalmic solution (2 sources) Nonsteroidal Anti-inflammatory Drug, Cyclooxygenase Inhibitor Start: 08-16-2022 ketorolac (ACULAR) 0.5 % ophthalmic solution 1 drop Start: 07-12-2022 End: 07-12-2022 ketorolac (ACULAR) 0.5 % oph thalmic solution 1 drop lisinopril 40 mg oral tablet (6 sources) Angiotensin Converting Enzyme Inhibitor lisinopril (ZESTRIL) 40 mg tablet Take 40 mg by mouth. 0 Active Comment on above: Take 40 mg by mouth. LORazepam 0.5 mg oral tablet (1 source) Benzodiazepine Start: 11-26-19 End: 12-26-19 take 1 tablet by mouth twice daily LORazepam (ATIVAN) 0.5 MG tablet Indications: Anxiety Take 1 tablet by mouth 2 times daily for 30 days. 60 tablet 0 11/25/2020 12/25/2020 Active multivitamin tablet (9 sources) multivitamin tab let Take by mouth. 0 Active Comment on above: Take by mouth. omeprazole 10 mg delayed release oral capsule (10 sources) Proton Pump Inhibitor Start: 04-27-20 21 take 1 capsule by mouth once daily [...] Drug Class(es) Dates Sig (Normalized) Sig (Original) [id number] 200 actuat albuterol 0.09 mg/actuat metered dose [...] Wheezing or Shortness of Breath 0 Active Apoaequorin 10 MG CAPS (1 source) Start: [...] (PF) (MARCAINE) 0.5 % injection 1 mg Cranberry preparation (13 sources) Non-Standardized Food Allergenic Extract, Non-Standardized Plant Allergenic Extract take 1 tablet by mouth once daily CRANBERRY PO Take 1 tablet by mouth daily 0 Suspended take 1 tablet by mouth once candi y CRANBERRY PO Take 1 tablet by mouth daily 0 Active hydroCHLOROthiazide 12.5 mg / lisinopril 10 mg oral tablet (20 sources) Thiazide Diuretic, Angiotensin Converting Enzyme Inhibitor Start: 07-25-2022 take 1 tablet by mouth once daily lisinopril-hydroCHLOROthiazide (PRINZIDE;ZESTORETIC) 10-12.5 MG per tablet Indications: Hypertension, unspecified type Take 1 tablet by mouth daily 90 tablet 1 07/25/2022 Suspended Start: 04-11-2018 take 1 tablet by raad th once daily lisinopril-hydrochlorothiazide (PRINZIDE,ZESTORETIC) 20-12.5 mg per tablet Take 1 tablet by mouth once daily. 0 04/11/2018 Active Comment on above: Take 1 tablet by raad th once daily. ibuprofen 800 mg oral tablet [...] lidocaine PF 1 % injection 1 mL 24 hr metoprolol succinate 25 mg extended release oral tablet (4 sources) beta-Adrenergic Paz Start: 07-25-2022 take 1 tablet by mouth once daily metoprolol succinate (TOPROL XL) 25 MG extended release tablet Indications: Hypertension, unspecified type Take 1 tablet by mouth daily 30 tablet 3 07/25/2022 Suspended Start: 09-28-2020 take 1 tablet by raad th in the morning metoprolol tartrate (LOPRESSOR) 25 MG tablet Take 1 tablet by mouth in the morning and 1 tablet before bedtime. 180 tablet 0 12/22/2021 Active Problems Active Problems Problem Classification Problem Date Documented Da te Episodic/Chronic Asthma (4 sources) Severe persistent asthma, uncomplicated; Translations: [SEVERE PERSIST ASTHMA UNCOMPLICATED] Onset: 02-20-2022 Chronic Cancer of breast (20 sources) Malignant neoplasm of upper-outer quadrant of female breast; Translations: [Malignant neoplasm of upper-outer quadrant of left female breast] Onset: 06-24-2018 02-03-2020 Chronic Cancer of breast (2 sources) History of malignant neoplasm of breast; Translations: [Personal history of malignant neoplasm of breast] 07-19-2023 Episodic Cancer of breast (1 source) Intraductal carcinoma in situ of left breast; Translations: [Cancer of breast, intraductal, left] Cataract (4 sources) Unspecified cataract; Translations: [Age-related nuclear cataract, left eye] Onset: 07-12-2022 Chronic Cataract (2 sources) Cataract; Translations: [LEFT EYE NUCLEAR SCLEROTIC CATARACT] Onset: 07-05-2022 Disorders of lipid metabolism (13 sources) Hyperlipidemia; Translations: [Hyperlipidemia, unspecified] 01-23-2013 Chronic Essential hypertension (20 sources) Hypertensive disorder; Translations: [Essential (primary) hypertension] Onset: 06-24-2018 01-23-2013 Chronic Malaise and fatigue (2 sources) Fatigue; Translations: [Other fatigue] Episodic Mood disorders (13 sources) Depressive disorder; Translations: [Major depressive disorder, single episode, unspecified] 01-23-2013 Chronic Other connective tissue disease (1 source) Swelling of limb; Translations: [Swelling of limb] Episodic Other non-traumatic joint disorders (1 source) Rotator cuff arthropathy of left shoulder; Translations: [Rotator cuff arthropathy of left shoulder] Other screening for suspected conditions (not mental disorders or infectious disease) (2 sources) Mammography abnormal; Translations: [Patient encounter status] 07-19-2023 Episodic Other upper respiratory infections (1 source) Acute sinusitis, unspecified Episodic Syncope (1 source) Syncope; Translations: [Syncope and collapse] Episodic Unclassified (1 source) Unspecified lump in the left breast, unspecified quadrant; Translations: [Unspecified lump in the left breast, unspecified quadrant] Onset: 12-26-2017 Past or Other Problems Problem Classification Problem Date Documented Da te Episodic/Chronic E Codes: Struck by; against (1 source) [...] Episodic Other bone disease and musculoskeletal deformities (13 sources) Osteopenia; Translations: [Other specified disorders of bone density and structure, unspecified site] Onset: 03-23-2021 Episodic Other bone disease and musculoskeletal deformities [...] CBC W Auto Differential pane l (Bld)on 07-19-2023 Basophils (Bld) [#/Vol] 0.04 10*3/uL Normal <0.11 [facility] Comment on above: Order Comment: Speci tod Type: BLOOD SPECIMEN Ordering Facility: [facility] Address: [address] [place] [address] Performed By: #### 5 7021-8 #### [facility] CLIA [id number] [address] [place] [address] 87182 Basophils/100 WBC (Bld) 0.5 % Normal [facility] Comment on above: Order Comment: Yairi tod Type: BLOOD SPECIMEN Ordering Facility: [facility] Address: [address] [place] [address] Performed By: #### 5 7021-8 #### [facility] CLIA [id number] [address] [place] [address] 18070 Differential cell count method Nom (Bld) Auto Normal [facility] Comment on above: Order Comment: Yairi tod Type: BLOOD SPECIMEN Ordering Facility: [facility] Address: [address] [place] [address] Performed By: #### 5 7021-8 #### [facility] CLIA [id number] [address] [place] [address] Eosinophils (Bld) [#/Vol] 0.45 10*3/uL Normal <0.46 [facility] Comment on above: Order Comment: Speci men Type: BLOOD SPECIMEN Ordering Facility: [facility] Address: [address] [place] [address] Performed By: #### 5 7021-8 #### [facility] CLIA [id number] [address] [place] [address] 36288 Eosinophils/100 WBC (Bld) 5.8 % Normal [facility] Comment on above: Order Comment: Speci men Type: BLOOD SPECIMEN Ordering Facility: [facility] Address: [address] [place] [address] Performed By: #### 5 7021-8 #### [facility] CLIA [id number] [address] [place] [address] 89370 Erythrocyte distribution width (RBC) [Ratio] 12.9 % Normal 11.5-15.0 [facility] Comment on above: Order Comment: Speci men Type: BLOOD SPECIMEN Ordering Facility: [facility] Address: [address] [place] [address] Performed By: #### 5 7021-8 #### [facility] CLIA [id number] [address] [place] [address] 35699 Hematocrit (Bld) [Volume fraction] 41.6 % Normal 36.0-46.0 [facility] Comment on above: Order Comment: Speci men Type: BLOOD SPECIMEN Ordering Facility: [facility] Address: [address] [place] [address] Performed By: #### 5 7021-8 #### [facility] CLIA [id number] [address] [place] [address] 03253 Hemoglobin (Bld) [Mass/Vol] 13.7 g/dL Normal 11.5-15.5 [facility] Comment on above: Order Comment: Speci men Type: BLOOD SPECIMEN Ordering Facility: [facility] Address: [address] [place] [address] Performed By: #### 5 7021-8 #### [facility] CLIA [id number] [address] [place] [address] 19766 Immature granulocytes (Bld) [#/Vol] 10*3/uL Normal <0.10 [facility] Comment on above: Order Comment: Speci men Type: BLOOD SPECIMEN Ordering Facility: [facility] Address: [address] [place] [address] Performed By: #### 5 7021-8 #### [facility] CLIA [id number] [address] [place] [address] 93801 Immature granulocytes/100 WBC (Bld) 0.1 % Normal [facility] Comment on above: Order Comment: Speci men Type: BLOOD SPECIMEN Ordering Facility: [facility] Address: [address] [place] [address] Performed By: #### 5 7021-8 #### [facility] CLIA [id number] [address] [place] [address] 62022 Lymphocytes (Bld) [#/Vol] 1.94 10*3/uL Normal 1.00-4.00 [facility] Comment on above: Order Comment: Speci men Type: BLOOD SPECIMEN Ordering Facility: [facility] Address: [address] [place] [address] Performed By: #### 5 7021-8 #### [facility] CLIA [id number] [address] [place] [address] 90957 Lymphocytes/100 WBC (Bld) 25.0 % Normal [facility] Comment on above: Order Comment: Speci men Type: BLOOD SPECIMEN Ordering Facility: [facility] Address: [address] [place] [address] Performed By: #### 5 7021-8 #### [facility] CLIA [id number] [address] [place] [address] 80664 MCH (RBC) [Entitic mass] 28.8 pg Normal 26.0-34.0 [facility] Comment on above: Order Comment: Speci men Type: BLOOD SPECIMEN Ordering Facility: [facility] Address: [address] [place] [address] Performed By: #### 5 7021-8 #### [facility] CLIA [id number] [address] [place] [address] 30621 MCHC (RBC) [Mass/Vol] 32.9 g/dL Normal 30.5-36.0 [facility] Comment on above: Order Comment: Speci men Type: BLOOD SPECIMEN Ordering Facility: [facility] Address: [address] [place] [address] Performed By: #### 5 7021-8 #### [facility] CLIA [id number] [address] [place] [address] 81535 MCV (RBC) [Entitic vol] 87.6 fL Normal 80.0-100.0 [facility] Comment on above: Order Comment: Speci men Type: BLOOD SPECIMEN Ordering Facility: [facility] Address: [address] [place] [address] Performed By: #### 5 7021-8 #### [facility] CLIA [id number] [address] [place] [address] 02530 Monocytes (Bld) [#/Vol] 0.40 10*3/uL Normal <0.87 [facility] Comment on above: Order Comment: Speci men Type: BLOOD SPECIMEN Ordering Facility: [facility] Address: [address] [place] [address] Performed By: #### 5 7021-8 #### [facility] CLIA [id number] [address] [place] [address] 85524 Monocytes/100 WBC (Bld) 5.1 % Normal [facility] Comment on above: Order Comment: Speci men Type: BLOOD SPECIMEN Ordering Facility: [facility] Address: [address] [place] [address] Performed By: #### 5 7021-8 #### [facility] CLIA [id number] [address] [place] [address] 41717 Neutrophils (Bld) [#/Vol] 4.93 10*3/uL Normal 1.45-7.50 [facility] Comment on above: Order Comment: Speci men Type: BLOOD SPECIMEN Ordering Facility: [facility] Address: [address] [place] [address] Performed By: #### 5 7021-8 #### [facility] CLIA [id number] [address] [place] [address] Neutrophils/100 WBC (Bld) 63.5 % Normal [facility] Comment on above: Order Comment: Speci men Type: BLOOD SPECIMEN Ordering Facility: [facility] Address: [address] [place] [address] Performed By: #### 5 7021-8 #### [facility] CLIA [id number] [address] [place] [address] Nucleated RBC (Bld) [#/Vol] 10*3/uL Normal <0.01 [facility] Comment on above: Order Comment: Speci men Type: BLOOD SPECIMEN Ordering Facility: [facility] Address: [address] [place] [address] Performed By: #### 5 7021-8 #### [facility] CLIA [id number] [address] [place] [address] 27966 Nucleated RBC/100 WBC (Bld) [Ratio] 0.0 /100 WBC Normal [facility] Comment on above: Order Comment: Speci men Type: BLOOD SPECIMEN Ordering Facility: [facility] Address: [address] [place] [address] Performed By: #### 5 7021-8 #### [facility] CLIA [id number] [address] [place] [address] Platelet mean volume (Bld) [Entitic vol] 9.6 fL Normal 9.0-12.7 [facility] Comment on above: Order Comment: Speci men Type: BLOOD SPECIMEN Ordering Facility: [facility] Address: [address] [place] [address] Performed By: #### 5 7021-8 #### [facility] CLIA [id number] [address] [place] [address] Platelets (Bld) [#/Vol] 216 10*3/uL Normal 150-400 [facility] Comment on above: Order Comment: Speci men Type: BLOOD SPECIMEN Ordering Facility: [facility] Address: [address] [place], [place] [address] Performed By: #### 5 7021-8 #### [facility] CLIA [id number] [address] [place] [address] 88563 RBC (Bld) [#/Vol] 4.75 10*6/uL Normal 3.90-5.20 [facility] Comment on above: Order Comment: Speci men Type: BLOOD SPECIMEN Ordering Facility: [facility] Address: [address] [place] [address] Performed By: #### 5 7021-8 #### [facility] CLIA [id number] [address] [place] [address] 25853 WBC (Bld) [#/Vol] 7.77 10*3/uL Normal 3.70-11.00 [facility] Comment on above: Order Comment: Speci men Type: BLOOD SPECIMEN Ordering Facility: [facility] Address: [address] [place], [place] [address] Performed By: #### 5 7021-8 #### [facility] CLIA [id number] [address] [place] [address] 13554 CNOVSPon 07-19-2023 [facility] Visit ([place]) Office ([place]) -------- NATASHA RIBEIRO ([id number]) 1950 F Date Time Provider Department 07/19/23 10:30 AM GATO CANO During your visit today, we recorded the following information about you: Temperature Pulse Respiration Blood pressure 97.1 degrees 69/minute 18/minute 134/66 Weight 74.9 kg Gato Cano MD 07/20/2023 1:40 PM Signed NAME: Natasha Ribeiro CLINIC NO.: [id number] DATE OF SERVICE: July 19, 2023 (ceci) Some elements in this clinic note that are critical to medical decision making have been carefully reviewed and included from a prior clinic note dated: January 11, 2023 (John). Referring Provider: Dr. Laz Portillo Additional Clinicians involved in Natasha Ribeiro's care: Dr. Bronson, Dr. Wyman, Dr. Lake DIAGNOSIS: 73 year old female with a history of [...] ductal carcinoma, largest invasive component 0.8 cm. 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 Mammogram in 12 months DXA in 12 months Follow up in 12 months labs same day. Exam same day as return. Continue Vit D and Calcium [id number]. - HPI: CASE HISTORY: Reverse Chronological Order 07/04/2023 - Bilateral Diagnostic Mammogram: ([place]) Findings: Diagnostic category 2--benign findings. 07/03/2022 - Bilateral diagnostic mammogram ([place]) Findings: Diagnostic category 2--benign findings. 03/03/2021 - DEXA scan ([place]) Osteopenic. 03/03/2021 - Bilateral diagnostic mammogram ([place]) Findings: Diagnostic category-benign findings. 03/02/2020 - Bilateral Diagnostic Mammogram ([place]) Findings: Diagnostic category 2-benign findings. 07[facility]28/2018 [facility]. Updated Visit, July 19, 2023: Doing well and is looking forward to stopping her Arimidex. Needs DXA. Sister passed breast ca another passed from pancreas. Lots of great and grandchildren 3 daughters. Decrease calcium intake. Chaperoned Breast Exam July 19, 2023 (Thelma Padilla): Right breast is normal, Left breast is post surgical scar upper outer quadrant. Salome exam is negative. Updated Visit, January 11, 2023: Natasha Ribeiro [...] that she would lose coverage here at [facility]. Lost her last August 2021 He [...] density reduced with osteopenia. Updated Visit, September 14 (more content not included)... Normal [facility] Comprehensive metabolic 2000 panelon 07-19-2023 Albumin [Mass/Vol] 4.5 g/dL Normal 3.9-4.9 [facility] Comment on above: Order Comment: Speci men Type: BLOOD SPECIMEN Ordering Facility: [facility] Address: [address] [place] [address] Performed By: #### 2 4323-8 #### [facility] CLIA [id number] [address] [place] [address]39 ALP [Catalytic activity/Vol] 57 U/L Normal 34-123 [facility] Comment on above: Order Comment: Speci men Type: BLOOD SPECIMEN Ordering Facility: [facility] Address: [address] [place] [address] Performed By: #### 2 4323-8 #### [facility] CLIA [id number] [address] [place] [address] ALT [Catalytic activity/Vol] 26 U/L Normal 7-38 [facility] Comment on above: Order Comment: Speci men Type: BLOOD SPECIMEN Ordering Facility: [facility] Address: [address] [place] [address] Performed By: #### 2 4323-8 #### [facility] CLIA [id number] [address] [place] [address] 26411 Anion gap [Moles/Vol] 10 mmol/L Normal 9-18 [facility] Comment on above: Order Comment: Speci men Type: BLOOD SPECIMEN Ordering Facility: [facility] Address: [address] [place] [address] Performed By: #### 2 4323-8 #### [facility] CLIA [id number] [address] [place] [address] AST [Catalytic activity/Vol] 23 U/L Normal 13-35 [facility] Comment on above: Order Comment: Speci men Type: BLOOD SPECIMEN Ordering Facility: [facility] Address: [address] [place] [address] Performed By: #### 2 4323-8 #### [facility] CLIA [id number] [address] [place] [address] 36103 Bilirubin [Mass/Vol] 1.1 mg/dL Normal 0.2-1.3 [facility] Comment on above: Order Comment: Speci men Type: BLOOD SPECIMEN Ordering Facility: [facility] Address: [address] [place] [address] Performed By: #### 2 4323-8 #### [facility] CLIA [id number] [address] [place] [address] 47280 Calcium [Mass/Vol] 10.3 mg/dL High 8.5-10.2 [facility] Comment on above: Order Comment: Speci men Type: BLOOD SPECIMEN Ordering Facility: [facility] Address: [address] [place] [address] Performed By: #### 2 4323-8 #### [facility] CLIA [id number] [address] [place] [address] 17349 Chloride [Moles/Vol] 103 mmol/L Normal 97-105 [facility] Comment on above: Order Comment: Speci men Type: BLOOD SPECIMEN Ordering Facility: [facility] Address: [address] [place] [address] Performed By: #### 2 4323-8 #### [facility] CLIA [id number] [address] [place] [address] 52081 CO2 [Moles/Vol] 28 mmol/L Normal 22-30 [facility] Comment on above: Order Comment: Speci men Type: BLOOD SPECIMEN Ordering Facility: [facility] Address: [address] [place] [address] Performed By: #### 2 4323-8 #### [facility] CLIA [id number] [address] [place] [address] 10070 Creatinine [Mass/Vol] 0.78 mg/dL Normal 0.58-0.96 [facility] Comment on above: Order Comment: Speci men Type: BLOOD SPECIMEN Ordering Facility: [facility] Address: [address] [id number] Performed By: #### 2 4323-8 #### [facility] CLIA [id number] [address] [place] [address] 32872 Creatinine and Glomerular filtration rate.predicted panel (S/P/Bld) 79 mL/min/1.73m??? Normal >=60 [facility] Comment on above: Order Comment: Speci men Type: BLOOD SPECIMEN Ordering Facility: [facility] Address: [address] [place] [address] Result Comment: Dara mated Glomerular Filtration Rate [...] GFR. Performed By: #### 2 4323-8 #### [facility] CLIA [id number] [address] [place] [address] 88104 Glucose [Mass/Vol] 85 mg/dL Normal 74-99 [facility] Comment on above: Order Comment: Speci men Type: BLOOD SPECIMEN Ordering Facility: [facility] Address: [address] [id number] Result Comment: The Indian Diabetes Association (ADA) provides guidance for cutoff [...] Standards of Medical Care in Diabetes 2016, Indian Diabetes Association. Diabetes Care. 2016.39(Suppl 1). Performed By: #### 2 4323-8 #### [facility] CLIA [id number] [address] [place] [address] Potassium [Moles/Vol] 4.8 mmol/L Normal 3.7-5.1 [facility] Comment on above: Order Comment: Speci men Type: BLOOD SPECIMEN Ordering Facility: [facility] Address: [address] [place], [place] [address] Performed By: #### 2 4323-8 #### [facility] CLIA [id number] [address] [place] [address] 14233 Protein [Mass/Vol] 7.3 g/dL Normal 6.3-8.0 [facility] Comment on above: Order Comment: Speci men Type: BLOOD SPECIMEN Ordering Facility: [facility] Address: [address] [place] [address] Performed By: #### 2 4323-8 #### [facility] CLIA [id number] [address] [place] [address] 27475 Sodium [Moles/Vol] 141 mmol/L Normal 136-144 [facility] Comment on above: Order Comment: Speci men Type: BLOOD SPECIMEN Ordering Facility: [facility] Address: [address] [phone] Performed By: #### 2 4323-8 #### [facility] CLIA [id number] [address] [place] [address] 18630 Urea nitrogen [Mass/Vol] 21 mg/dL Normal 7-21 [facility] Comment on above: Order Comment: Speci men Type: BLOOD SPECIMEN Ordering Facility: [facility] Address: [address] [place], [place] [address] Performed By: #### 2 4323-8 #### [facility] CLIA [id number] [address] [place] [address] 23610 CBC W Auto Differential pane l (Bld)on 01-11-2023 Basophils (Bld) [#/Vol] 0.05 10*3/uL Normal <0.11 [facility] Comment on above: Order Comment: Speci men Type: BLOOD SPECIMEN Ordering Facility: [facility] Address: [address] [address] Performed By: #### 5 7021-8 #### [facility] CLIA [id number] [address] [place] [address] 54692 Basophils/100 WBC (Bld) 0.7 % Normal [facility] Comment on above: Order Comment: Speci men Type: BLOOD SPECIMEN Ordering Facility: [facility] Address: [address] [address] Performed By: #### 5 7021-8 #### [facility] CLIA [id number] [address] [place] [address] 91820 Differential cell count method Nom (Bld) Auto Normal [facility] Comment on above: Order Comment: Speci men Type: BLOOD SPECIMEN Ordering Facility: [facility] Address: [address] [address] Performed By: #### 5 7021-8 #### [facility] CLIA [id number] [address] [place] [address] 10374 Eosinophils (Bld) [#/Vol] 0.50 10*3/uL High <0.46 [facility] Comment on above: Order Comment: Speci men Type: BLOOD SPECIMEN Ordering Facility: [facility] Address: [address] [address] Performed By: #### 5 7021-8 #### [facility] CLIA [id number] [address] [place] [address] 38469 Eosinophils/100 WBC (Bld) 7.4 % Normal [facility] Comment on above: Order Comment: Speci men Type: BLOOD SPECIMEN Ordering Facility: [facility] Address: [address] [address] Performed By: #### 5 7021-8 #### [facility] CLIA [id number] [address] [place] [address] 06912 Erythrocyte distribution width (RBC) [Ratio] 12.8 % Normal 11.5-15.0 [facility] Comment on above: Order Comment: Speci men Type: BLOOD SPECIMEN Ordering Facility: [facility] Address: [address] [address] Performed By: #### 5 7021-8 #### [facility] CLIA [id number] [address] [place] [address] 03511 Hematocrit (Bld) [Volume fraction] 36.8 % Normal 36.0-46.0 [facility] Comment on above: Order Comment: Speci men Type: BLOOD SPECIMEN Ordering Facility: [facility] Address: [address] [address] Performed By: #### 5 7021-8 #### [facility] CLIA [id number] [address] [place] [address] 82957 Hemoglobin (Bld) [Mass/Vol] 12.1 g/dL Normal 11.5-15.5 [facility] Comment on above: Order Comment: Speci men Type: BLOOD SPECIMEN Ordering Facility: [facility] Address: [address] [address] Performed By: #### 5 7021-8 #### [facility] CLIA [id number] [address] [place] [address] 73498 Immature granulocytes (Bld) [#/Vol] 10*3/uL Normal <0.10 [facility] Comment on above: Order Comment: Speci men Type: BLOOD SPECIMEN Ordering Facility: [facility] Address: [address] [address] Performed By: #### 5 7021-8 #### [facility] CLIA [id number] [address] [place] [address] 98577 Immature granulocytes/100 WBC (Bld) 0.1 % Normal [facility] Comment on above: Order Comment: Speci men Type: BLOOD SPECIMEN Ordering Facility: [facility] Address: [address] [place] [address] Performed By: #### 5 7021-8 #### [facility] CLIA [id number] [address] [place] [address] 04544 Lymphocytes (Bld) [#/Vol] 1.84 10*3/uL Normal 1.00-4.00 [facility] Comment on above: Order Comment: Speci men Type: BLOOD SPECIMEN Ordering Facility: [facility] Address: [address] [place] [address] Performed By: #### 5 7021-8 #### [facility] IA [id number] [address] [place] [address] 83556 Lymphocytes/100 WBC (Bld) 27.3 % Normal [facility] Comment on above: Order Comment: Speci men Type: BLOOD SPECIMEN Ordering Facility: [facility] Address: [address] [place] [address] Performed By: #### 5 7021-8 #### [facility] CLIA [id number] [address] [place] [address] 45176 MCH (RBC) [Entitic mass] 28.7 pg Normal 26.0-34.0 [facility] Comment on above: Order Comment: Speci men Type: BLOOD SPECIMEN Ordering Facility: [facility] Address: [address] [place] [address] Performed By: #### 5 7021-8 #### [facility] IA [id number] [address] [place] [address] 50742 MCHC (RBC) [Mass/Vol] 32.9 g/dL Normal 30.5-36.0 [facility] Comment on above: Order Comment: Speci men Type: BLOOD SPECIMEN Ordering Facility: [facility] Address: [address] Performed By: #### 5 7021-8 #### [facility] CLIA [id number] [address] [place] [address] 22134 MCV (RBC) [Entitic vol] 87.4 fL Normal 80.0-100.0 [facility] Comment on above: Order Comment: Speci men Type: BLOOD SPECIMEN Ordering Facility: [facility] Address: [address] [address] Performed By: #### 5 7021-8 #### [facility] CLIA [id number] [address] [place] [address] 07554 Monocytes (Bld) [#/Vol] 0.44 10*3/uL Normal <0.87 [facility] Comment on above: Order Comment: Speci men Type: BLOOD SPECIMEN Ordering Facility: [facility] Address: [address] [address] Performed By: #### 5 7021-8 #### [facility] CLIA [id number] [address] [place] [address] 85873 Monocytes/100 WBC (Bld) 6.5 % Normal [facility] Comment on above: Order Comment: Speci men Type: BLOOD SPECIMEN Ordering Facility: [facility] Address: [address] [address] Performed By: #### 5 7021-8 #### [facility] CLIA [id number] [address] [place] [address] 80855 Neutrophils (Bld) [#/Vol] 3.89 10*3/uL Normal 1.45-7.50 [facility] Comment on above: Order Comment: Speci men Type: BLOOD SPECIMEN Ordering Facility: [facility] Address: [address] [address] Performed By: #### 5 7021-8 #### [facility] CLIA [id number] [address] [place] [address] 79965 Neutrophils/100 WBC (Bld) 58.0 % Normal [facility] Comment on above: Order Comment: Speci men Type: BLOOD SPECIMEN Ordering Facility: [facility] Address: [address] [address] Performed By: #### 5 7021-8 #### [facility] CLIA [id number] [address] [place] [address] 78878 Nucleated RBC (Bld) [#/Vol] 10*3/uL Normal <0.01 [facility] Comment on above: Order Comment: Speci men Type: BLOOD SPECIMEN Ordering Facility: [facility] Address: [address] [address] Performed By: #### 5 7021-8 #### [facility] CLIA [id number] [address] [place] [address] 39894 Nucleated RBC/100 WBC (Bld) [Ratio] 0.0 /100 WBC Normal [facility] Comment on above: Order Comment: Speci men Type: BLOOD SPECIMEN Ordering Facility: [facility] Address: [address] Performed By: #### 5 7021-8 #### [facility] CLIA [id number] [address] [place] [address] 87117 Platelet mean volume (Bld) [Entitic vol] 9.6 fL Normal 9.0-12.7 [facility] Comment on above: Order Comment: Speci men Type: BLOOD SPECIMEN Ordering Facility: [facility] Address: [address] Performed By: #### 5 7021-8 #### [facility] CLIA [id number] [address] [place] [address] 90479 Platelets (Bld) [#/Vol] 226 10*3/uL Normal 150-400 [facility] Comment on above: Order Comment: Speci men Type: BLOOD SPECIMEN Ordering Facility: [facility] Address: [address] Performed By: #### 5 7021-8 #### [facility] CLIA [id number] [address] [place] [address] RBC (Bld) [#/Vol] 4.21 10*6/uL Normal 3.90-5.20 [facility] Comment on above: Order Comment: Speci men Type: BLOOD SPECIMEN Ordering Facility: [facility] Address: [address] [place] [address] Performed By: #### 5 7021-8 #### [facility] CLIA [id number] [address] [place] [address] 56657 WBC (Bld) [#/Vol] 6.73 10*3/uL Normal 3.70-11.00 [facility] Comment on above: Order Comment: Speci men Type: BLOOD SPECIMEN Ordering Facility: [facility] Address: [address] [place] [address] Performed By: #### 5 7021-8 #### [facility] CLIA [id number] [address] [place] [address] 61893 CNOVSPon 01-11-2023 CNOVSP Visit (SP) Office ([place]) -------- MAYASHERRIE RodrigesA ([id number]) 1950 F Date Time Provider Department 01/11/23 2:00 PM ALLYSSA LOPEZ [place] During your visit today, we recorded the following information about you: Temperature Pulse Respiration Blood pressure 97.7 degrees 75/minute 16/minute 125/59 Weight Height 73.8 kg 1.613 m Allyssa Lopez APRN.PROGRAMMING COORDINATOR 01/11/2023 3:21 PM Signed PATIENT NAME: Natasha [...] ductal carcinoma, largest invasive component 0.8 cm. ER/IA positive, HER-2 negative, Oncotype recurrence score low (8). Surgical margins negative. The patient underwent a left axillary sentinel node procedure 07/08/2018, and 0 of 15 lymph nodes were involved. Monoallelic mutation of PALB2 gene - ICD9: V84.01, V84.89, V84.09, ICD10: Z15.01, Z15.89, Z15.09 Heterozygous PALB2 mutation of unclear significance identified on [employer] genetic analysis 07/08/2018. Per medical genetics this [...] as return. Continue Vit D and Calcium gefp-puw-pjyspln. INTERIM HISTORY: Updated Visit, January 11, 2023: [...] that she would lose coverage here at [facility]. Lost her last August 2021 He [...] currently on arimidex. 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 This weighs heavily on her. Screening Mammography completed (more content not included)... Normal [facility] Comprehensive metabolic 2000 panelon 01-11-2023 Albumin [Mass/Vol] 4.4 g/dL Normal 3.9-4.9 [facility] Comment on above: Order Comment: Speci men Type: BLOOD SPECIMEN Ordering Facility: [facility] Address: [address] [address] Performed By: #### 2 4323-8 #### [facility] CLIA [id number] [address] [place] [address] ALP [Catalytic activity/Vol] 63 U/L Normal 34-123 [facility] Comment on above: Order Comment: Speci men Type: BLOOD SPECIMEN Ordering Facility: [facility] Address: [address] [address] Performed By: #### 2 4323-8 #### [facility] CLIA [id number] [address] [place] [address] 04066 ALT [Catalytic activity/Vol] 17 U/L Normal 7-38 [facility] Comment on above: Order Comment: Speci men Type: BLOOD SPECIMEN Ordering Facility: [facility] Address: [address] [address] Performed By: #### 2 4323-8 #### [facility] CLIA [id number] [address] [place] [address] 90867 Anion gap [Moles/Vol] 9 mmol/L Normal 9-18 [facility] Comment on above: Order Comment: Speci men Type: BLOOD SPECIMEN Ordering Facility: [facility] Address: [address] [address] Performed By: #### 2 4323-8 #### [facility] CLIA [id number] [address] [place] [address] 68427 AST [Catalytic activity/Vol] 17 U/L Normal 13-35 [facility] Comment on above: Order Comment: Speci men Type: BLOOD SPECIMEN Ordering Facility: [facility] Address: [address] [address] Performed By: #### 2 4323-8 #### [facility] CLIA [id number] [address] [place] [address] 53457 Bilirubin [Mass/Vol] 1.0 mg/dL Normal 0.2-1.3 [facility] Comment on above: Order Comment: Speci men Type: BLOOD SPECIMEN Ordering Facility: [facility] Address: [address] [address] Performed By: #### 2 4323-8 #### [facility] CLIA [id number] [address] [place] [address] 95113 Calcium [Mass/Vol] 9.8 mg/dL Normal 8.5-10.2 [facility] Comment on above: Order Comment: Speci men Type: BLOOD SPECIMEN Ordering Facility: [facility] Address: [address] [address] Performed By: #### 2 4323-8 #### [facility] CLIA [id number] [address] [place] [address] 02818 Chloride [Moles/Vol] 103 mmol/L Normal 97-105 [facility] Comment on above: Order Comment: Speci men Type: BLOOD SPECIMEN Ordering Facility: [facility] Address: [address] [address] Performed By: #### 2 4323-8 #### [facility] CLIA [id number] [address] [place] [address] 41308 CO2 [Moles/Vol] 28 mmol/L Normal 22-30 [facility] Comment on above: Order Comment: Speci men Type: BLOOD SPECIMEN Ordering Facility: [facility] Address: [address] [address] Performed By: #### 2 4323-8 #### [facility] CLIA [id number] [address] [place] [address] 95025 Creatinine [Mass/Vol] 0.80 mg/dL Normal 0.58-0.96 [facility] Comment on above: Order Comment: Speci men Type: BLOOD SPECIMEN Ordering Facility: [facility] Address: [address] [address] Performed By: #### 2 4323-8 #### [facility] CLIA [id number] [address] [place] [address] 82061 Creatinine and Glomerular filtration rate.predicted panel (S/P/Bld) 77 mL/min/1.73m??? Normal >=60 [facility] Comment on above: Order Comment: Speckinsey baron Type: BLOOD SPECIMEN Ordering Facility: [facility] Address: [address] [place] [address] Result Comment: Dara mated Glomerular Filtration Rate [...] GFR. Performed By: #### 2 4323-8 #### [facility] CLIA [id number] [address] [place] [address] 00014 Glucose [Mass/Vol] 104 mg/dL High 74-99 [facility] Comment on above: Order Comment: Speci tod Type: BLOOD SPECIMEN Ordering Facility: [facility] Address: [address] [place] [address] Result Comment: The [employer] Diabetes Association (ADA) provides guidance for cutoff [...] Standards of Medical Care in Diabetes 2016, Indian Diabetes Association. Diabetes Care. 2016.39(Suppl 1). Performed By: #### 2 4323-8 #### [facility] CLIA [id number] [address] [place] [address] 95196 Potassium [Moles/Vol] 4.3 mmol/L Normal 3.7-5.1 [facility] Comment on above: Order Comment: Speci men Type: BLOOD SPECIMEN Ordering Facility: [facility] Address: [address] [address] Performed By: #### 2 4323-8 #### [facility] CLIA [id number] [address] [place] [address] Protein [Mass/Vol] 6.7 g/dL Normal 6.3-8.0 [facility] Comment on above: Order Comment: Speci men Type: BLOOD SPECIMEN Ordering Facility: [facility] Address: [address] [address] Performed By: #### 2 4323-8 #### [facility] CLIA [id number] [address] [place] [address] 54575 Sodium [Moles/Vol] 140 mmol/L Normal 136-144 [facility] Comment on above: Order Comment: Speci men Type: BLOOD SPECIMEN Ordering Facility: [facility] Address: [address] [address] Performed By: #### 2 4323-8 #### [facility] CLIA [id number] [address] [place] [address] 76713 Urea nitrogen [Mass/Vol] 18 mg/dL Normal 7-21 [facility] Comment on above: Order Comment: Speci men Type: BLOOD SPECIMEN Ordering Facility: [facility] Address: [address] [address] Performed By: #### 2 4323-8 #### [facility] CLIA [id number] [address] [place] [address] 06971 CNOVSPon 07-20-2022 CNOVS Visit (SP) Office ([place]) -------- NATASHA RIBEIRO ([id number]) 1950 F Date Time Provider Department 07/20/22 [...] ductal carcinoma, largest invasive component 0.8 cm. ER/IA positive, HER-2 negative, Oncotype recurrence score low [...] that she would lose coverage here at [facility]. Lost her last August 2021 He [...] currently on arimidex. 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 Normal [facility] MG MAMM LUIS M DIAG W CADon MG MAMM LUIS M DIAG W CAD Patient: NU RIBEIRO Exam Date: 07/03/2022 : 1950 Gender:F Ordering : DR ALLYSSA LOPEZ [facility] Admission #: [id number] Family : Order #: [id number] CLICK HERE TO VIEW EXAM RADIOLOGY REPORT [...] Treatments None Family Cancers None LOCATION: [facility] BREAST COMPOSITION: Scattered areas fibroglandular [...] LUMP SHOULD BE BIOPSIED. Dictated by: Kranthi Mitchell M.D. on 07/03/2022 at 15:21 Approved by: Kranthi Mitchell M.D. on 07/03/2022 at 15:24 Normal [facility] COVID/FLU/RSV RT-PCRon 05-30 SARS-CoV-2 (COVID-19) RNA DARIUS+probe Ql (Unsp spec) Negative [facility] [employer] Other COVID/FLU/RSV RT-PCR Negative [facility] [employer] Other HEMOGLOBINon 02-20-2022 Hemoglobin (Bld) [Mass/Vol] 12.8 g/dL Normal 12.0-16.0 [facility] Comment on above: Performed By: #### H GB #### [facility] [address] [place] [address] Dr. Vinicius Serna XR FOOT LT MIN [...] by: KIM PHELAN Date: 2022-01-28 17:15 Normal [facility] Coding Summaryon 03-30-2021 Coding Summary [employer] 64 ZpyhsbnhHGj9hSj+PGhlYWQ+ VY8ZGWReH45brMBdyY1QV3eF KY5IPKIRTVLHHP5NLQ0gtRF3 AWdoF0BvnqUf ZvjrhQTlOS61RAk2CII3iQhj YOdfgX6ktWNwG8c1UbRwLB50 sQ78BNcfJWPjNqD0OlUhpebw bWFy S3niBsWneWUvJio+PHRhYmxl IHdpZHRoPScxMDAlJyBzdHls TC1iEt5yETPaBMMpxAqzgWFk OiBj l9jiKMDsFOmoOB9xyBswF3Cl yMG9WOSbj9w4Ye05eKC+PHRk LNI3eMxhHDarf402SgNfd9qo IDM3 lJAbJNjyHHN1S72nf4R6JTIi SERkOPU2aBY2pU2knAhgtrkv Y2UjlCStFfW3OAS6sKFjtB2h bGln rymwtN5cQzo+X48FYN2IGDYU UY2ENey0K0UgJwvucIT+PC90 SBCiPN59gASlcUQyb6kvnPu2 JzEw KRVcGFT5mRrcXOhrt6FwKQAs T29tpHHny4I4CLEtxAnmcPDr HjAelYC2gK7xATifpirwg8fe dzsn Thion7lndz23lF62S66zNUfc IGMrOJM1TFLtOSGasTaaxn4h hF5rHw1+DEvzn7tgb1uynQq2 IjIw KWNartApuQewOEZ3h9RlTw42 Q9UbtMlli2YcBfb5qa81aSDy h4T7lOQ0EEmgSGWvaQ3yNJtl ZnQ6 RPJsQjAioG02xAYoGQrtHs8b lPfutNmoYA5oYUCzpwjqDUAv kM1iMRUrtWBsnIrhIH2qWRCt bjtm f509SxMbMLN2ORVgwKFfC1Za rM0xTrUcKPPoNPXiK7MycQEc YYihN074NZqxPjJ2IYYisgCh Y2Fs UZUsvAwyOoA5x4Q7Zm6Yr5Fn jhzzKWG1WQpvUIZvBrB4PyFj MxD8L4WdFvc9RDGfyNhsQQ4e J3Bh LFDcgknteghqmKR1RMXlKKDq yT30dDJnVGzsLt5fg9S5w405 TIScIBFaeE38Sn7lgJugQZHx dCBU tE6lnvdaf8bkyzgzHmChKVVr KVl5NDt2YCTxqIuiQqWsCNF8 ItX8LTB3yQVgyT6pkDcdaieb dG9w Oyc+W49leC3oOPZ9BGW7uydd JMEdqpUmBF72AE02M6DuQclo dGFibGU+ENRoftYwhNtaEK8m YmFj f6ptv1TkHDebT1RqRFNjHLqt Cpf9TECnHMN5zXA3sW9wDSTp CPonf4N4xCK1I2RzxqXtqu6j b2xs ZZGbJLubD20whLYen2O9OMJe kWK8DBJktRibEjOrvY42Zew+ TJPuoNzhj2KwDlltt8fab3gw dGg9 UfRsVHXtemOrhHwdSPQ7a2Kb Lh30Z60vVZugKGTmJLJjJONy RMLpvBkyvi9jrV6vJp6+PGNv bCB3 hMU0fN8dWYBmPxS6FBkfX671 EsKdlMZtBlcmm2yyj7qmrLu3 ZpFtQEZjvrTnoIvaCXY9m3Wu Lz48 G20vVFskHPBpWEPlFDLePRRa tBjanj8aiQ5jXi3+XO1dq1wm ou27zG98yBJ+KOUiVMB4kHzt PSdw FVNnvY8iKZrmCmM1SCBsClNp bQ74wMYfGOczBa4toFrapEto UI8gQVHmfgadk999JiZxb3qa IDEw oHPwADbdJXW9Z84px2S9MOTw AYLiCCO0cJS8lO0grZcsveja bGVmdDsgdmVydGljYWwtYWxp Z246 IHRvcDsnPlBhdGllbnQgTmFt NXi1M1IrOik0MBNblYgcVI7t cRQpHBpvEc8brAaemNbcUF8p NTBp ygdne312DtPml8ygOBGinCWj NQoiUVP7T75ds2C6KRZhVKIq HQJ6iJF5yN1qxSlyyjrkjIUj dDsg viVafDtcTBnoNClgM485BPHc oVxxMmJyzjZiQODbkLQ0JS73 FC60aEQal0Y2hJW7X0BtJZSe bmct rynwtAY2XLSqAEYpyY83Ji8y oBilEw9wCQLkMVA1FDYkaUXx M5AixS6bEgOtWMCdPVFpO5Ce eHQt UCuoX065WSjkSvB2XAYhpqVh M3BvJJZqeOzlRkI7j4C3Xs3H J9X3GN71SZ38aDCot8Q6iCO6 J3Bh VHYtpzanmqpstFB8HNScEJVk nR11Dh6cjAdtMb9cQUBdTMJ7 PJJgxGNeZ9MgvT9gMpRfBWLb MDAw J7ZawNFaFZfkW452LDehOsE0 EKXlwrSoY9DwWKLtsUcmEjX9 y6F2Tf2QWAv6KP46WS42qTPu c3R5 eWR9F8YoHIDnxkqlrcjajIY4 BBHoWIKqfL43Kk8tqUcrNm7j WALnLQW8CIEynGTpB6YdcE6h OiAj ZBQtTWFwY5WlpDTmNDhgV125 QYpkHlM0UPBfjqQsE3IzIINt uJbcQtA3w9N5Wj4JBUXwEZ58 IFR5 aPG4VF48DO57R3WrVtedsHHc bGU+PHRhYmxlIHdpZHRoPScx QUDtKyAfpGhpVC6fIe0uJHSc LWNv dFayqCDzTgLml3euVINwQPer NZ8elViwS9IowGS9FPCqs6u7 Lm80F49zZ3YhcSQ+PGNvbCB3 aWR0 dK5kKwLxRkV0ZUkoL526VcEv uJKlFiiox0rdf7rtgDh0GhR0 ZSWuqsYowAjhLHE0d7GfZe14 Y29s IHdpZHRoPSIxNSUiIHZhbGln oq7ksP4lZl9+CWYnkJK4fWK4 hY1bKxYgAqQ0ZEcpC399CsGp cCIv Hjzjb5mbx9zpdLo0BoYhQYRd yeHfxAccESA8p9IeSb89V0Oh nFypm5ZkTcd5bq55eMYvd4W4 bGU9 Z7UnNKJfcbyseOJpaQwqHQ7c CKLnbhhuFLSuzK7cMSBuE6a5 BxSwTlS1UXlyV8DjjkI4GJVm cHQg ZMvpQDM2U69yv0I3TWIvCACy OTN1wFP4tV6vnDpsdzckqDTm kAmmgzVuiVhvHAlzOUqjZ141 IHRv iSmwGXFocY9iEBYyaPGcmMnq GO5eAMPcpzjbHmeAEmCGXGCZ GMCBGASQBU6CUINBXI85PW17 dGQg w5A1zDX6W3JyAYKyyahnwkcj kMP3BTOsMWWjeS60uAOpHWen Si7hr5H4t005PCTmHGIwgB36 Zm9u mAphQKEyoUSQkA0dxeupm7ts dvjkBeOpHEEpZDz3DCh8GPCn gQulIuPmYPE0TyA9KSB5nQYq bC1h jJnrvkykjK3gJgt+MTAvMTIv UNc5FTmrkLY+GODwVWT4lIkn KNwiNPZcbK3qAGWcO2h4KePp LjA1 HMlxN1PfKFRowpedQl62uQ2z NpUxLyM7MVlrR0MkvfK1YOLm fQRxBYxjSRE4P46ao2F2QMXf MDAw QKE1wDB3lA9iwFllhpshbESc nHcvavLsoFgeCYjfWMbmD683 NYCqxXtiOivvPCdrOKDvRT87 ZD48 kHRme1N9bYV9L3TuMNMvorqw arapvID7JSGhBQWagZ13vKNe BLaoZy7fl0O4a660GTBsVNUn aW47 Ca3dzIxsSJRrnECXwI8jxhnk l3lfvokbNxZvNGAdLUe0JPw7 JPVkbNqtRxCoTJK3RpD7NMS2 aWNh oF9fhCtwymfidU9cYet+RkVN PMlYHU72SA20zUQby8X9tRJ1 Z1ScPGZbasxetlakkUY2UYZb MDUw xR85fBKuODxiIz4bh8P0f669 FGTrYUDsoP16Qe2zjOxoCJDd lTOOxN1xgxtqy9gnqedrCrEk MDAw QFy7PNn3CZNcbDkoMjYaUJI9 ZcK7EYO7aGOppD2rhCakhptw vP5nOve+MX1vyazqecM5MU49 ZD48 G4ClAjtpaTZtxNJ+PHRhYmxl IHdpZHRoPScxMDAlJyBzdHls PS7dTr9sVSUhFVYgsWlgoMOv OiBj j6fcZZMaKFjbGG9smKhwF2Lj aSX7AOYcr7p3Mi81M26hA1Pb dXA+YHFpjBI5rZN2sU5wLjWi IiB2 RPucM738PqTqwUQaMmtbu2rd g6wimEc4GqMiMTRpnfDrfQho AUD7z9WuAs33O83rIXpeLQBq PSIy ELYmHTPvpLbdpx8oqO3eGq2+ NMEtgJJ8jUG2yN8wCzNlJnM7 UXvbG811VlIzhWLnWxpwM03y Z3Jv dXA+NVEpMeh4IDTslEqvKL4r yXVkIKrdKc3mBKH3WqMnGpYk LWcyN4HqFSKhhnuurvusmRQ8 IDAu MHAffT18Pa0tfNjiZg7jQOIh FSB7RJGjtRNlE7IlvH5uSnMo JKQcRRCvF2GpoTUeSNawX178 IGxl WcX3OHPlxrJoS0LpUYFlsYss WwK7f1M8Nz1IwKkjtFTqTG6k YqGdVFr5F5BbSuf2IIRwyKwq ZT0n uHBzCBxaAu5utDdyvWvgBG4o AYOvfunkx778UhXge5xtYJPk zMTcGNqyBMA1B36ya4P6RFGo MDAw HTF0eVH8wT8cyYctbuvolMGa aKqhtxRryAohENrlAZtoP480 BACpaUrtZhATBhf4F6CpPdo3 ZCBz iUseXW2vwYLtJQpnQo9fyYfy jQfdMW4rVYWqyxhzn276YyPz k9kmWVCvdZXnXUcwLVT2S84o b3I6 AXBnHLJiXGF0oFD2sS1mpUyx bjogbGVmdDsgdmVydGljYWwt XYxsE711KVPmdVelVj7TIsc5 L3Rk Rpr8OCLkzUrdII0kqAViGYcg Gy3hxCszeBbkTE0pBIAyvjeq h814IsBtn1ouVUCtpWNxETmk ZXM7 I26qs0Y7PQOvPQYpVAX8lGE9 xV8hyCgxqewtwLIekYjkzjBa qSqjTLinQAgnY710KYBaqQih PlBh eWVyOjwvdGQ+MD96mq66V9Ix JyhjItt6GSGbXBJ2bQF0nF5g UJRoEQrzd5E9gRK1S5FetjUa ci1j b2x (more content not included)... [facility] Coding Summary HTMLBase 64 DmjyyhksLMy6mXp+PGhlYWQ+ YQ1YBBAhL04scMLxlW4DN4xL ZP8VAESTSVHXKI9QQD6juJS1 SOlrW2ShvoHl PeuqzKEeDG95ETg1FVZ1sApa DGzxuX6nbHGwW4m4YdXfKN78 gW13IHujZNBbKzC6DfZbhuhi bWFy V2diDpQpvSRoAtd+PHRhYmxl IHdpZHRoPScxMDAlJyBzdHls FE2xBo7hQZNhCEMvxGjaiEUc OiBj m3blFGPpNPjzJN9nnEptW5Zq kQJ1UGZmo5j4Vs18ySZ+PHRk UOO9nIyzPPubi502LhQky9ic IDM3 rQTuVWfcCNS0G88cw1W7ZAUh XBPjWFI4kXB2xZ2baIdofijz B6HueTAjPkL5GQG5yGZflM6z bGln mwxyoF1xKge+W36FIL6HMJDZ AO2NBuf0Y0TyJqvnsWM+PC90 YRIpQP31eYWvcHQag2zqdGa7 JzEw BZSzYZR9pOzdBHayg6SmMHGb G35zjQLsy4X8VCHulIkhhGSg EvAwpCT7wD2dPBkklopen1ec dzsn Rcmii9drca54rP29S90wWKxw AFCtIJA2DOHeFHGseXmkan6b xZ0oKi4+RLecm1ezk0umyZb3 IjIw EIMbbaKtjWkcEIE8j8NhVy76 R1RmvOfic3UnNdj6bd57pGHp r0O0lGS3UHyiWKJyzG4wHLxw ZnQ6 ZKSnOdMrcH99vDRyWBajGg8n cLozdDdmOI1cAEPqjdyaHZDs lL1tFGRscCOddHmuPL8sPKMs bjtm c373AuWhMGZ3YEAfvSBxL0Ly fJ3cHsVcOKZgQKFyK7UrnRPr SGwdM818DTxsUwX2KOXaxaMj Y2Fs HDCtaHyeMrL8l9M9Yy7Zl7Tg jqkrYMR2PXzvDYNlJqA2BpNt GsD4S1MpTbr9QDOelUkiDH1y J3Bh QVEqxkacopizqNO6YCQySMQb uL12iOXuPYigDo6jb3V5z880 DFKzFEXfoB40Xz9hzXcwKZOs dCBU oI8fjtymv4dmomwmKzDnBXOl EYa9IGh0DNXktYjoZaYhUHZ0 ZqG3KOT0eUTdrN0xmSeovpkq dG9w Oyc+L55vgG9iMSX8QHG7ohvq HUTykgMjFG02JP47L8TqUjlc dGFibGU+PEAtreWwiKqfDU4k YmFj t3kqc5AfJMuxP8FaPZCcFAzl Wjj3XVUeHRF9fES9fE5wZAZe WHbzm5X1wUI7N8XoidXysi0w b2xs SQPnGNoyP69pvFQfc4R0PGMe oGB6MCOkoVdoCeFfzR96Roj+ FHLjrLghn4SdDxili3uwg9rb dGg9 FjRcRTMngnJkiWhcCCY2g6Xx Gw40N00kMYxlKPCaHSWkWVUy JTPlzVtvcs2etU3dZb6+PGNv bCB3 nGR9pT3zILJzFdU7ZGxyH134 ZgWitVXfTciki1teg4cpdYd2 PxZyBTMbohXieNoaJXS1k0Qk Lz48 B39nHMbrPURxMQViRAJvBBTb xJdlbr6fdG0aSw1+VT7tj1bc yr12cS61cID+DWUrYQD1rVqg PSdw NKQhoK8fOEzsIjF3KWEhSyZh mB41uRUwYIhuMo4ikYifuCrp YN2aBHEuogfng284BaLyy8qp IDEw aFJsEEckADF9Q83sm4W6CEKi AIUfJFK4wZQ9dH7jzYisipau bGVmdDsgdmVydGljYWwtYWxp Z246 IHRvcDsnPlBhdGllbnQgTmFt ECd3O0XgOwi9SHYxqOkcXC2h pNXcEDscEv2smTgbtObfGZ5o NTBp nkhpf188QzDxn2smWJPxuKQo NPspYFR3U24uo8R7DPCaPAHh GQX1wKK6vW3hjWzhkujrdHJx dDsg duAfjYirZZmvSGabU530YHEx fPguWfLzozOaOILaoRP4EE80 UK36uMLnl3H6lVT0E8UwNRBe bmct kxcorDB4EQOgEIEbyX91Gr8t mZvhKt1kGTXaBQK2KCKclMXm Z0XsdB5gXeLzQBRkYKGoS8Ug eHQt EGauS042WYvxPdG8RIIlsbWn N1NjZFIgyXgeFqX2k2I9Mu6P X5X8VN74NL75gUTfl5U4hHE0 J3Bh TSEjoezivjpikQJ6DKYpPZGk xK18Ir3dwXryZf9uTGKaVLV4 RFRlvYUrW1TffN2eFhYaWZBb MDAw X7RbeHUtFClbQ667TFedBiE0 KOPmsmFfG9ObPWNiuPddKqF2 a2Z0Lh5YTEx6GJ25EG11pGQd c3R5 pWE7Q6XvRHVfpvxygifxbSY5 HDFqVJWhnO60Nz0nnHqyXp0q BFSpPBQ8DLMxvIFdE0BqcA8t OiAj LAQtNKQzN6TzeOFfDBxyP369 JZglBlI7PXWuixXrE6SyZMSj eDtpOmR8o3A9Jw5IUIOtIP20 IFR5 xTI0AZ46MB03T2FnGhiygHOu bGU+PHRhYmxlIHdpZHRoPScx GNKuYuCksBrxJL4tNl0eDGFk LWNv rBlroJKvGcCzu3mtDYIsWZes VX1vvQirX7VdgZU6GPRmp6h2 Gd28L92nI4DrpXA+PGNvbCB3 aWR0 vI6yKfHbMlH2QKknZ487VgVa xIRjDlkxu1zcq5jzjLv4KbE4 MGLnacOjkAxpASF7e0OnCl21 Y29s IHdpZHRoPSIxNSUiIHZhbGln na9fqT2zHl6+RWLtgLS6eDV0 nC4zFbTeXnH2BXhbT115YyUn cCIv Efquj1mzz6vbpIe9KdWaOBHu eiHbbEhuOED3a8BdNd15K1Jp pUhnl9OaIgw7qc57iVPcz8V9 bGU9 T0IaYEAqyrqrjZUjnYydPN2q FPDcajfnXLSlhD8iHIVtC4o9 WfEhHhW2OFpzA7IgnkN1CIMe cHQg BThoUFJ1B70vi5Q7ALYpLUVx FHU7yNK7gC1osEcgtigbbHBn xBabemHjvNlbNRyqUKtvS988 IHRv mCkiMZNchC0gJOWurMZjrQof SQ0xJLXeikvxTigUMkEANFWI HJXNLNSYOL4NYPYOMZ83SS73 dGQg r5K4uLE2I8QaPTHcmnfwynxz rKC3OTDgZZNbrN32iEBkZMjj Yo9uw9C7k586HMVkSYWxeY66 Zm9u dWydLBDtvKNJsV7ehuwun5ck anasHpLbPCNjPPx3JQk9JPNa aRbzViEqTMJ5JsW0YOA8uMQp bC1h kCwjwucjjN9dHok+MTAvMTIv SQe5UGwmhTM+EWLrYGE8tRxk AEzjZIVwnM3eAMOeD1e4MuDx LjA1 DJpnI0XxFGZuxxheGf26qM4a KaXoTdU3BLlfI3MuzbE4BZVy cEAuOMslBNB9S87us8U6RQIv MDAw JZS5tMO9zR9zuYhfmkdfgCPj bSbvrjKijMlgIJolTRwzW207 KNPlrRzdQamqNLhvDXYwAZ21 ZD48 fGPfu9I4aSN8I0EaJAQtjvjr bwejqKF2VIFuVNIbmK97oQSn WMnsCa7du1O3g343KJZuQSCk aW47 Ll4klYctVZDxxLAVoW4fsibl x7wyrzbeCfBuOZMrUKb8FVh6 XZJmuEtbTgDhMSL0ToP0NTV6 aWNh rA8nnOdmurrpjG0sYxr+RkVN VAaUOI30QZ57rHSci9T6oYA9 I4TmLXYcrbjoayiqrFD8MQYu MDUw hU95iFNcZBzaTl6qx8V0x558 HFHjKBVfoT14Tc8xeQgjVUYl iEPMiP1paugri5ukphhjYvAf MDAw FVa1WGh5SEMmzHbzJiQmBQK2 WgV9ARW8iSEqaR7roHypgevd eK5oRkx+SF6wtufjakL1MP52 ZD48 K5WhWiufcUXraMO+PHRhYmxl IHdpZHRoPScxMDAlJyBzdHls WS5lTi0zACYwSEJbwIilzUDi OiBj f8cnQOPlPLaaWM1ioHxiM9Is gDK0UIDeg1h9Ok30I43uD6Oq dXA+SKYqrAT1aUI9yU7fTuMg IiB2 QPvgX858QyWroYUwGujrb0ww b2rrrNe9CtXvVSXuufZcaLml FUL5p5EvOs49P70nKSesISBy PSIy SWGrAJVmjZseri9avM7zXy7+ QKMysJU2tZV4xA6gZbWhDzN3 GRuuU633CaIntCMwHrxoR56d Z3Jv dXA+ZTSdOkp4VQFjcYccLE4d lJRzNKtdIj2iEVT2MlFrWfSu AEblD1PlFJRisdvakwnrzXE8 IDAu AGDksP00Bm9wlIzoGm5nWHVz MGU9THHehKNuS7CmnJ8fVrXo HNXmAZTpN8KvcRUgUMzvG355 IGxl UnI5HEMpxkGhV7UiSLCpgBcp FoU7u8U7Hj6SqUhtqCVdCK6n BeAyIXu5G2GjIxf4ISZhmCjf ZT0n bXFgVAhyWk7opJkubPenUB1f GBMjpbrmg152IhKnq6mzNSTh xAHoXUlbOIJ0J88gq9A6WCLz MDAw YPJ4iHO5rG6koRqzmjgjzJUt hPywpdFfeAokLPpeBIgvF544 RINilUzkWaHAQjq5I3UaGzv6 ZCBz cGeyFQ9xbVJwLObzLv3lvUzi eFzeUE1kPLVjdflpo264SfXq v2vcYVLrmWSgHCvxVDQ9A24o b3I6 GAWhHLUpDWL9oGW0lA7vyPpa bjogbGVmdDsgdmVydGljYWwt ZFnqI519URFqlOwtKp3OAnn9 L3Rk Kwc2SLVttGssHI6bsVEoQYpc An1hkGrvkXsjGU2lMWEuruvo n059RdAgc5grWNGacYMwXGev ZXM7 C41zd4T2BSUwCDCkUQU7tEO3 rP2orAchmtegpGEnwAzarvXh qOnaJPysVVsfG401BUJlsThr PlBh eWVyOjwvdGQ+ZO84sh58D9Em NtrrBaq5MTCrVGW5nUS6mO9b QIReYHdnd1I3wQY8Z5OpqwBn ci1j b2x (more content not included)... [facility] Coding Summary HTMLBase 64 HqhologxLIx8aXf+PGhlYWQ+ HP2UMLFlB25rpVZxfJ5XN0jE KZ7YBFOHZBOQCF3LMZ0cqHO7 FWigE6CshdBb EntroFBkSI49GHk3MPN0oYib KZdbfE6vrSLwK9i0ToVpXP78 iO07GEasIRHvGeY9PvKmecnb bWFy K9scQsSkoCVtNlj+PHRhYmxl IHdpZHRoPScxMDAlJyBzdHls HN7iRv0vOGPwFUFigLpggJSq OiBj l4mrYCMnLCacDD9thFpgL1Zm cVF4TBPbf3v4Cj38qHR+PHRk VLD8iTmzYBrie369MmAya9kc IDM3 cNOtNLjjXGM1N76io3A0LKSm EEMjEGA6eXG1oF5amQhydkax G4DywRKxPgH7VVZ8vAFeuK5v bGln abgqwV1yFue+L59DUM9TRCHR JU2LElp3G0JvAbkijLZ+PC90 DYPiMR77xGPwsBSgo8hmoEr6 JzEw JCLmDAA0bFbzAGyyo3YnZLUr S79raTMmt9M6KEJmtJouaKHq XqYanEF4sM6sNFoxlkikw8fn dzsn Onxnz1tdmb88dB57G43cVPev LMJaOPM5NGIrTBKxsYvcsm8s lW8uFk7+HSfld8hyo6zvzLj6 IjIw JKMcccYaeFviRQR4l2HoRq50 U7TgcJxtn1RxOpv7mh67uDDf a8F2kWM6CIgjDMItpH2zPYha ZnQ6 SQStKxIftB33vAOcFNdtXi0b mOrsjGluUI6cRVUpmhdcWNFr aG9nXNOvlYQxoMdfJC1qYOSd bjtm f452QpFlXLS5CSRhdXBpS7Ja hE3wFhBzXZOkPULdV2GvvNDa YYreW418AJoiKiY0UOYsxhLl Y2Fs ENEnkIgsSuK9f2L3Zn2Og6Fr bsokQPE9FCgaVSWpLnA1OcJr FkZ4Q5NzUdm7ZDJdqPufLF2f J3Bh OEThvvxmadlwdTU8SZHpNVMc qU11mYEpFCadVf7zd9O1d796 HJVjHEAjiM60Vc2teQilIVKp dCBU dY4arpjpb6ectnquObCaAYMi ZJo8SCi1YICpzNivPpFlHOJ8 KiO1CDY1tBNbmB8ldDkihqzd dG9w Oyc+U11jpX9gFZX7XMV8ieit BVXuyaMySJ85SK28I6IpOape dGFibGU+LUKkttKqvHvwED7u YmFj y4nog1ZfGFfxT8HaNPQnLQee Mqg5KUKcSNP1hIX4qK5vSOMk QOukv9T6gIG1Y9DhzxHuqs1f b2xs JAZyQChjU81tnXIkb7Y9KYIl oUK4KUPvlCimQaOqwG80Hqu+ EIGmsUayq5AdJioto9cbm3rh dGg9 MvMaVDSxsvAlyVliMNR3q1Bw Oo87M36bAOnxLMLzCCTaWRGy GWOzdGbbpa6jzT8yLm4+PGNv bCB3 rKZ4oR5xUXMvBqD9GLimK001 SbCgvRWvTwjkf7pdf8nqgKi6 QpGqBJQrfiRrmVszWKW9h9Ri Lz48 C52oBAqeWTMmMLCpYGThEWFl nLpfby4cvX8pAu6+DS9jr2ji vr77vO88sUF+ASYcWYM5gAgc PSdw UFFfhV6xVOleUrI9GIDkCxAr fR00nCZmVPkrTd4fhUutfZkb IT5qUHHmpvbxb162TnTjb4cm IDEw kPBoKFksFKV0N05jm1C4GTZg GRBiDCD4kOF4rI1wnHnhbxak bGVmdDsgdmVydGljYWwtYWxp Z246 IHRvcDsnPlBhdGllbnQgTmFt MSa1X4HnSop1PDPezHrqFC5x kKXnASadOh7abMqdzKtcMJ9z NTBp upslo520BdDcs4bhQCCguZSv KDrvZAZ8F24kz0C8OBErHYQc DZI3uFB2mP3lhSgiaezyjLBk dDsg prQtmMlhJQlpMZimV551HSCb jXfvUtMfbtLqIKNuoNX1PD42 ZD24fRWix9M4sMD8E5WuOYHy bmct rlhhfEX8CCWoZVGjdB79Xr8n uCtlPb0yYONiGRC9UWVprMBf W4RneN4fAyScYVRcZLSwR9Iw eHQt JZsbI748HCnbHwQ1VQNifqVb G3GiLGFoyNlmLbP8k9D9Tx1H X0F7MZ38FC23tDBga0K5ySZ5 J3Bh JVJjkuluukcvtPY1CTPbNEXg gQ93Zq8mjLkjJp2nYBFkRSO3 YRIhzKBeE0CmcG9aOkIoBLBp MDAw I9XmsTLxTUigY563RLkqOfW6 RSPbbyYrA1MaUYDmbQlrRvH4 s2T9Yn3PZNz5LG24CS38qLPf c3R5 bUY7U8ItJTSxsrecvjvaaLQ2 GWVtNESijF11Mg8kqLakMo6d LLYqZCD5HXMrhLWiC4VicK2h OiAj CDAaXREsX8LjnZQyOEpuG670 PAvzGhJ1GNJienSeE8IxNINt uZevWkX4n9S5Sx9HCERrVQ05 IFR5 tBB7OZ44NZ36F0AcAwhyjAAv bGU+PHRhYmxlIHdpZHRoPScx FDDfKmQulYweNT2eRp3wVQOx LWNv yOztdPSeNrYyf4wuHSCgDHjk FJ5ciZjqH7VfxCN6XUJhc3e7 Pp23W18zI2NqbWF+PGNvbCB3 aWR0 bU4dMnGcPoB1EHtxG095IwXh aEBxYoktp0wfu4zmbOy9PqL8 EOOlkhDutOcbSKN3b2TeOf25 Y29s IHdpZHRoPSIxNSUiIHZhbGln hk4axG7tPa3+TQHqqAL8lSW0 eG8wToVjJdW5MMwbH532BxYz cCIv Hhigs0mjr8yowWl8BsLtUTIg ukJdyHaxOJI0e4YfJq14U0Li dPlcz7LdQlm5wi25iMSak1A3 bGU9 X5KpVQRfyypayHBarNjwLB0u KWMosoxwGNUhlZ9uVAHzT8e1 XmKlXoD0ZWfxL5HjcrW5MBEg cHQg ZBqwWCH7D27es5T7ISYjAKIj RPA9oXB3lB6uoMbnkyzxgKLw eMfwblOjrHfkMWesAYzqL595 IHRv sMqvOLYewY8iOXHcsPMceAsj FQ9pYTQtnjozQngINbIGRTWA YHZFSKOSFS1HDFMQZE90XW63 dGQg r5N4nBZ2O0GuMEZafhuasire qKC4PALvHPMlkO76rMPgNXyw Ml4zo5P5r888JAZpRNIewI10 Zm9u rWnhWUEteYJOpR9xceggd6mq gtsjZvCdDRIjASf0FUq6EVBt xXjuYwPiUZI3EmZ4UDK4dRAc bC1h nBgmvzcmpQ7eKrr+MTAvMTIv ZXc0IVyjkTB+GFZlABR2dKjx HTauBKSonV5oFMWjH8h2EyWl LjA1 DExzC9EeFECrumtkGl95tK1c IbYcOaE2ZWpeY4VkrlK6IIVx fCSgQVcqJWO7R04ce7G3GELf MDAw RSO5pRX4oJ1axLcqfvhrxQYv jGfjqdPwnBdvXPedLFnwL201 ZFWtlUouXgrgTEakQBCnWG78 ZD48 fTSxu1H7lJD1T5BpOYKrkekm etjseRL8WSLqGDHywB77bLVw SUvwQt8jo2A3c818PMRhRTVn aW47 Qu2jxGwqYEJohVXGyD6flwyn e9wwjwleMmMiLIYsXFz0IZt4 IAAqhWqxQjZiEQI7RjR3CBA3 aWNh eZ7zoXyuwwmbqU6oIos+RkVN GOkWID89SV85oZNzs2S3cVP6 E4UsVPEjkuwsxylysXS0EKOt MDUw rZ31aIYjXRxdRo6zo4Y1w522 ZXDrJKIagE68Qb1ubUdsBQRw pEUHpG0pomapy8bvlupdReHf MDAw LIh0BMt4UCJklFgyTyBdEOU6 IkB6ULI0xYLlxU4agEfymnvu lB6sBme+VP2xwcqiynD9JG65 ZD48 S0OjBpkuuFKucEU+PHRhYmxl IHdpZHRoPScxMDAlJyBzdHls KP1nZk7kSFEkVXZnaNgnyZVf OiBj c9caBDXhHZdjUU5avXrfO5Ik kVE3JOLgr4t0Mp47K24mT9Le dXA+OAXwiEE3jGK3hO3aCvOi IiB2 ITmcA744WfAxgGBxAesjx9zi i9uovFk7UzShVUEupeHvgKmc DGV3a8VxWc22K93cZWllOSZp PSIy MAJyBSHhgVtiyv4iuQ5qSo4+ HHYjiAQ5dXH0pH1tOrNnCrO3 XNnsP496GeGspFUvCtexG84a Z3Jv dXA+OVXnWnf6ZACgpArmYS6h dJJoLMryUx0hVLV7VzOfNfEe PQswS5BvVPParhoplrirsLZ0 IDAu EJOnqH12Qw2kcGnxUy0qSLQz QKU5ZWXnbEWlQ9JymJ0nIdYw OKDoEKWpN1TloCXpWRvtQ134 IGxl ZnK3RXJyjyGcK7KcTIZlqDps HuP0f8A9Dd6UwUceqDOmVP6k OwVySBu0T7JtDsl8OCGfcEuw ZT0n uSHrPWgaZd0tdKjfrBeaAW3i JAZascdgj193ZmVoa3gsFWDj kDTiDZrzZHB3K64pe2U4AGEm MDAw DNG1jCB2qO8vnIaekwvvtRXi iZyvxtKxlHjzRDhnDKlvZ654 VKJpsUmmQlSASfo0M7ZmXgb3 ZCBz bXpnAX6rvFOpLBliAc2ubYck uVyxYP4sTIFhhkkyi766PtEe c3ihNHFdgOVcHLclAOQ8X07v b3I6 LCJtRQCkZBO1wRL5iA2uyXca bjogbGVmdDsgdmVydGljYWwt CRbpH601CMNpeStpHw2XEtt7 L3Rk Ieq1NPDneThtIB0evDBfCVzn Ku5veYylrJszOD9yOGAdspoq b490DdOgj0rvENHauWIxNTkv ZXM7 X73ho6Q3QPJeHTJzIKO0wRR4 oO6lrSpwurhinVCwvPmsqaBc aQumKLfyNPomM931RVVlaUpt PlBh eWVyOjwvdGQ+CS84hy81Z9Mn GoigYcs9LSEoOYS4iHW9yF1t EOApFFczh8E8kVI9W0MgjfMl ci1j b2x (more content not included)... Normal [facility] CT PE Chest w/ Contraston CT [...] Scot Kaba MD 03/21/21 11:01 p Technologist: [facility] Consent Formson 03-22-2021 Consent Forms [id number] TIFF [facility] ED Clinical Summaryon 2020 ED Clinical Summary [facility] - Emergency Department [address] [place], [place] [id number] ED Clinical Summary PERSON INFORMATION Name: NU RIBEIRO Age: 71 Years Sex: FEMALE : 1950 MRN: Acct#: Visit Reason: Shortness of breath; SOB Arrival: 03/21/2021 19:58:39 Discharge: 03/21/2021 23:34:00 LOS: 000 03:36 Check In: 03/21/2021 19:58:39 Checkout:03/21/2021 23:34:00 Address: [facility] [address] PCP: Laz Portillo MD PROVIDER INFORMATION Provider Role Assigned Unassigned Taran [...] distress, Well-ap (more content not included)... Normal [facility] ED Patient Summaryon 021 ED Patient Summary [facility] - Emergency Department [address] [place] [address] PATIENT DISCHARGE INSTRUCTIONS Patient Information Name: NU RIBEIRO Age: 71 Years Date of : 1950 Reason For Visit: Shortness of breath; SOB Arrival Time: 03/21/2021 19:58:39 Primary Care Physician: Nicholas SNELL, Laz Romero Attending Physician: Marisol Leigh D.O. Comment: Visit Diagnosis: Diagnoses This Visit Asthma exacerbation (J45.901) Shortness of breath ([id number]) Prescription Information: If you have been given a prescription for narcotics, seek immediate medical attention if you have any difficulty breathing or any sudden status changes such as confusion and sleepiness. If you or anyone you know is experiencing suicidal thoughts, mental health, alcohol and/or drug addiction problems; contact the [facility] 03/12 Crisis Hotline -Text 0BIYC gq 726973. If you received any narcotics, sedation, or [...] With: Address: When: Laz Portillo [address] [place] [address] Business (1) Within 3 to 5 days Medication Information: The exam and treatment you received today in the [facility] Emergency Department were for an urgent problem and are not intended as complete care. It is important for you to follow up with a doctor, nurse practitioner, or physician?s legal executive assistant for ongoing care. If your symptoms [...] so we can reach you if necessary. [facility] Emergency Department has provided you with a complete list of medications post discharge. Please inform your tag press operator/provider of your visit and for further instruction on these medications. Any specific questions regarding your chronic medications and dosages should be discussed with your primary care physician(s) and/or pharmacist. New Medications [facility], [address], [place] [id number], [phone] albuterol (Albuterol (Eqv-ProAir HFA) 90 mcg/inh inhalation [...] these instructions at home: Medicines ? Take xjds-vrh-mqbahns and prescription medicines only as told by your doctor. ? If you need to use an inhaler or nebulize (more content not included)... Normal [facility] Lactic Acidon 03-22-2021 Lactic Acid 11.7 mg/dL Normal 4.5-19.8 [facility] Comment on above: Performed By: #### 2 [id number] ####[facility] (DEFAULT)[address] [place] [address] .Auto Diff 103-21-2021 Auto [place] % 8 % Normal 12 [facility] Comment on above: Performed By: #### 5 [id number], [id number], [id number], 9926646, 1966591 ####[facility] (DEFAULT)[address] [place] [address]121 Baso Abs# 0.0 x10 Normal 0.0-0.2 [facility] Comment on above: Performed By: #### 5 [id number], [id number], [id number], 1983008, 3991140 ####[facility] (DEFAULT)[address] [place] [address] Basophils/100 WBC (Bld) 0.4 % Normal 0.2-2.0 [facility] Comment on above: Performed By: #### 5 [id number], [id number], [id number], 3033412, 1249652 ####[facility] (DEFAULT)[address] [place] [address] 52093 Eos Abs# 0.5 x10 High 0.0-0.4 [facility] Comment on above: Performed By: #### 5 [id number], 96709351, 6997094074, 5309287, 7147959 ####[facility] (DEFAULT)[address] [place] [address] 77999 Eosinophils/100 WBC (Bld) 7.0 % High 0.9-4.0 [facility] Comment on above: Performed By: #### 5 [id number], 51223539, [id number], 1831033, 7203701 ####[facility] (DEFAULT)[address] [place] [address] 34796 Lymph Abs# 2.3 x10 Normal 1.3-2.9 [facility] Comment on above: Performed By: #### 5 [id number], 75174423, [id number], 1116054, 4668813 ####[facility] (DEFAULT)[address] [place] [address] 93886 Lymphocytes/100 WBC (Bld) 31 % Normal 14-48 [facility] Comment on above: Performed By: #### 5 [id number], 41591172, [id number], 7321782, 4820120 ####[facility] (DEFAULT)[address] [place] [address] [place] Abs# 0.6 x10 Normal 0.0-0.8 [facility] Comment on above: Performed By: #### 5 [id number], 17865698, 7008166327, 3396394, 7498157 ####[facility] (DEFAULT)[address] [place] [address] 20229 Neut Abs# 4.0 x10 Normal 1.5-9.2 [facility] Comment on above: Performed By: #### 5 [id number], 85519220, 2267149436, 8730276, 8233432 ####[facility] (DEFAULT)[address] [place] [address] 67071 Neutrophils/100 WBC (Bld) 54 % Normal 44-88 [facility] Comment on above: Performed By: #### 5 [id number], 95951107, 5158156802, 0629812, 5582164 ####[facility] (DEFAULT)[address] [place] [address] CBC w/ Auto Diffon 1 Erythrocyte distribution width (RBC) [Ratio] 13.0 % Normal 11.5-15.0 [facility] Comment on above: Performed By: #### 5 [id number], 93740994, 6049292375, 0197288, 0581319 #### [facility] (DEFAULT) [address] [place] [address] Hematocrit (Bld) [Volume fraction] 38.1 % Normal 33.7-40.4 [facility] Comment on above: Performed By: #### 5 [id number], 15543027, 2791033703, 8678039, 1328011 #### [facility] (DEFAULT) [address] [place] [address] Hemoglobin (Bld) [Mass/Vol] 12.6 g/dL Normal 11.3-15.9 [facility] Comment on above: Performed By: #### 5 [id number], 13890512, 3888144496, 0889564, 3732937 #### [facility] (DEFAULT) [address] [place] [address] Instr WBC 7.5 x10 Invalid Interpretation Code [facility] Comment on above: Performed By: #### 5 [id number], 71801453, 3753273973, 7105422, 1593700 #### [facility] (DEFAULT) [address] [place] [address] Man Diff? Auto Normal [facility] Comment on above: Performed By: #### 5 [id number], 77029636, 7461470487, 2108482, 5210256 #### [facility] (DEFAULT) [address] [place] [address] MCH (RBC) [Entitic mass] 29 pg Normal 24-34 [facility] Comment on above: Performed By: #### 5 [id number], 17870018, 9557904770, 4861245, 7833756 #### [facility] (DEFAULT) [address] [place] [address] MCHC (RBC) [Mass/Vol] 33 g/dL Normal 26-37 [facility] Comment on above: Performed By: #### 5 [id number], 99104492, 1857928931, 7083308, 9451925 #### [facility] (DEFAULT) [address] [place] [address] MCV (RBC) [Entitic vol] 88 fL Normal 81-100 [facility] Comment on above: Performed By: #### 5 [id number], 88849305, 0679606997, 6898841, 0323922 #### [facility] (DEFAULT) [address] [place] [address] Platelet 225 x10 Normal 138-427 [facility] Comment on above: Performed By: #### 5 [id number], 85794481, 2131183153, 2502860, 1583527 #### [facility] (DEFAULT) [address] [place] [address] Platelet mean volume (Bld) [Entitic vol] 9.6 fL Normal 6.3-10.2 [facility] Comment on above: Performed By: #### 5 [id number], 97139199, 2723965935, 2996028, 1936911 #### [facility] (DEFAULT) [address] [place] [address] RBC 4.34 x10 Normal 3.70-5.30 [facility] Comment on above: Performed By: #### 5 [id number], 27598105, 0322332538, 6286264, 2648630 #### [facility] (DEFAULT) [address] [place] [address] WBC 7.5 x10 Normal 3.5-10.5 [facility] Comment on above: Performed By: #### 5 [id number], 51648274, 9439070422, 2111908, 8874356 #### [facility] (DEFAULT) [address] [place] [address] CMP Standardon 03-21-2021 eGFR Non AA >60 Invalid Interpretation Code [facility] Comment on above: Performed By: #### 5 [id number], 65662136, 1849817451, 6184572, 4861995 ####[facility] (DEFAULT)[address] [place] [address] 14810 eGFR AA >60 Invalid Interpretation Code [facility] Comment on above: Result Comment: Travel Pta feliz Kidney disease could be indicated at eGFRs of less than 60 ml/min/1.73m2. Kidney Failure is indicated at less than 15 ml/min/1.73m2 Performed By: #### 5 [id number], 73817717, 7702229932, 9011070, 8788903 ####[facility] (DEFAULT)[address] [place] [address] 96663 Albumin [Mass/Vol] 4.0 g/dL Normal 3.5-5.0 [facility] Comment on above: Performed By: #### 5 [id number], 99050861, 6802960580, 2524713, 1569177 ####[facility] (DEFAULT)[address] [place] [address] 69855 Albumin/Globulin [Mass ratio] 1.4 {ratio} Normal 1.4-2.6 [facility] Comment on above: Performed By: #### 5 [id number], 36953482, 6889095887, 8271856, 7109812 ####[facility] (DEFAULT)[address] [place] [address] 83741 Alk Phos 59 IU/L Normal 32-91 [facility] Comment on above: Performed By: #### 5 [id number], 01436442, 7970787939, 2686635, 8248261 ####[facility] (DEFAULT)[address] [place] [address] 01231 ALT [Catalytic activity/Vol] 15.0 U/L Normal 14.0-54.0 [facility] Comment on above: Performed By: #### 5 [id number], 67097634, 6667035913, 7637683, 3837158 ####[facility] (DEFAULT)[address] [place] [address] 96904 Anion gap [Moles/Vol] 11.0 mmol/L Normal 5.0-19.0 [facility] Comment on above: Performed By: #### 5 [id number], 37051936, 9719140344, 8735623, 2829372 ####[facility] (DEFAULT)[address] [place] [address] 18019 AST [Catalytic activity/Vol] 19 U/L Normal 15-41 [facility] Comment on above: Performed By: #### 5 [id number], 06626753, 2096882678, 9629191, 6699753 ####[facility] (DEFAULT)[address] [place] [address] 33013 Bili Total 0.8 mg/dL Normal 0.3-1.2 [facility] Comment on above: Performed By: #### 5 [id number], 84354514, 9984643802, 7870280, 3856833 ####[facility] (DEFAULT)[address] [place] [address] 01198 Calcium [Mass/Vol] 9.5 mg/dL Normal 8.9-10.3 [facility] Comment on above: Performed By: #### 5 [id number], [id number], [id number], [id number] ####[facility] (DEFAULT)[address] [place] [address] 19008 Chloride [Moles/Vol] 105 mmol/L Normal 101-111 [facility] Comment on above: Performed By: #### 5 [id number], [id number], [id number], [id number] ####[facility] (DEFAULT)[address] [place] [address] 68115 CO2 [Moles/Vol] 29 mmol/L Normal 21-32 [facility] Comment on above: Performed By: #### 5 [id number], [id number], [id number], [id number], [id number] ####[facility] (DEFAULT)[address] [place] [address] 31260 Creatinine [Mass/Vol] 0.70 mg/dL Normal 0.60-1.30 [facility] Comment on above: Performed By: #### 5 [id number], [id number], [id number], [id number], [id number] ####[facility] (DEFAULT)[address] [place] [address] 66673 Globulin (S) [Mass/Vol] 2.9 g/dL Normal 1.5-4.3 [facility] Comment on above: Performed By: #### 5 [id number], [id number], [id number], [id number], [id number] ####[facility] (DEFAULT)[address] [place] [address] 32478 Glucose [Mass/Vol] 87.0 mg/dL Normal 74.0-118.0 [facility] Comment on above: Performed By: #### 5 [id number], [id number], [id number], [id number], [id number] ####[facility] (DEFAULT)[address] [place] [address] 60773 Osmolality 283 mOsm/L Invalid Interpretation Code [facility] Comment on above: Performed By: #### 5 [id number], [id number], [id number], [id number], [id number] ####[facility] (DEFAULT)[address] [place] [address] 29223 Potassium [Moles/Vol] 3.8 mmol/L Normal 3.6-5.1 [facility] Comment on above: Performed By: #### 5 [id number], [id number], [id number], [id number], [id number] ####[facility] (DEFAULT)[address] [place] [address] 20083 Protein [Mass/Vol] 6.9 g/dL Normal 6.5-8.1 [facility] Comment on above: Performed By: #### 5 [id number], [id number], [id number], [id number], [id number] ####[facility] (DEFAULT)[address] [place] [address] 72268 Sodium [Moles/Vol] 141.0 mmol/L Normal 136.0-144.0 [facility] Comment on above: Performed By: #### 5 [id number], [id number], [id number], 8708960, [id number] ####[facility] (DEFAULT)[address] [place] [address] Urea nitrogen [Mass/Vol] 19 mg/dL Normal 8-26 [facility] Comment on above: Performed By: #### 5 [id number], [id number], [id number], [id number], [id number] ####[facility] (DEFAULT)[address] [place] [address] Urea nitrogen/Creatinine [Mass ratio] 27.0 mg/mg High 4.6-16.2 [facility] Comment on above: Performed By: #### 5 [id number], [id number], [id number], 7141037, 3834626 ####[facility] (DEFAULT)[address] [place] [address] D-Dimeron 03-21-2021 D-Dimer 0.51 mg/L FEU High 0.19-0.50 [facility] Comment on above: Result Comment: Resu [...] Liver cirrhosis ? Performed By: #### 5 [id number], [id number], [id number], [id number], 2999959 ####[facility] (DEFAULT)[address] [place] [address] 23270 ED Note - Physicianon 2020 ED Note [...] SARS-CoV-2 (COVID-19) PCR (more content not included)... [facility] ED Note-Nursingon 03-21-2021 ED Note-Nursing Pt states she feels better, less short of breath. Pt is currently resting on cart awaiting CT PE study. [facility] ED Note-Nursing Pt arrives to [...] at this time. Pt resting on cart. [facility] TnI HSon 03-21-2021 Troponin I High Sensitivity 3 pg/mL Normal <=15 [facility] Comment on above: Result Comment: Male Baseline Delta 1Hr (Note pg/mL=ng/L) <20pg/mL 50-60% >20pg/mL 20% Female Baseline Delta 1Hr <15pg/mL 50-60% >15pg/mL 20% Other Baseline Delta 1Hr <18ng/mL 50-60% >18ng/mL 20% ([employer] Guidelines December 2017) Performed By: #### 5 [id number], [id number], [id number], [id number], [id number] ####[facility] (DEFAULT)[address] [place] [address] XR Chest 1 View Frontalon XR Chest [...] Signature): Kim Phelan 03/21/21 11:22 p Technologist: Fred LAUGHLIN [facility] FolateOrdered By: Raul Swan on 11-29-2020 Folate 8.9 ng/mL >4.8 [employer] Work Phone: No Panel InformationOrdered By: Raul Carmendonny on 11-29-2020 [employer] Work Phone: Vitamin [id number] By: Raul Moralesdonny on 11-29-2020 Cobalamin (Vitamin B12) [Mass/Vol] 753 pg/mL 232 - 1245 pg/mL [employer] Work Phone: CBC Auto DifferentialOrdered By: Laz Portillo on 09-20-2020 Absolute Eos # 0.40 [facility] Work Phone: Absolute Immature Granulocyte NOT REPORTED [facility] Phone: Absolute Lymph # 1.60 [employer] [facility] Work Phone: Absolute [place] # 0.30 [employer] [facility] Work Phone: Basophils (Bld) [#/Vol] 0.10 10*3/uL [facility] Work Phone: Basophils/100 WBC (Bld) 1 % 0 - 2 % [facility] Work Phone: Differential Type NOT REPORTED [facility] Work Phone: Eosinophils/100 WBC (Bld) 5 % High 0 - 4 % [facility] Work Phone: Hematocrit (Bld) [Volume fraction] 38.0 % 36 - 46 % [employer] Work Phone: Hemoglobin.gastrointe stinal spec 1 Ql (Stl) 12.1 g/dL 12.0 - 16.0 g/dL [employer] Work Phone: Immature Granulocytes NOT REPORTED 0 % [facility] Work Phone: Interpretation and review of laboratory results Abnormal [employer] Work Phone: Lymphocytes/100 WBC (Bld) 25 % 24 - 44 % [employer] Work Phone: MCH (RBC) [Entitic mass] 29.5 pg 26 - 34 pg [employer] Work Phone: MCHC (RBC) [Mass/Vol] 31.8 g/dL 31 - 3 7 g/dL [employer] Work Phone: MCV (RBC) [Entitic vol] 92.8 fL 80 - 100 fL [employer] Work Phone: Monocytes/100 WBC (Bld) 5 % 1 - 7 % [employer] Work Phone: NRBC Automated NOT REPORTED per 100 WBC [employer] Work Phone: Platelet distribution width (Bld) [Ratio] 14.1 % 11.5 - 14.9 % [employer] Work Phone: Platelet Estimate NOT REPORTED [employer] Work Phone: Platelet mean volume (Bld) [Entitic vol] 8.3 fL 6.0 - 12.0 fL [employer] Work Phone: Platelets (Bld) [#/Vol] 147 10*3/uL Low [employer] Phone: RBC (Bld) [#/Vol] 4.09 10*6/uL 4.0 - 5.2 m/uL [employer] Work Phone: RBC (Bld) [#/Vol] NOT REPORTED [employer] Work Phone: Segmented neutrophils/100 WBC (Bld) 64 % 36 - 66 % [employer] Work Phone: Segs Absolute 4.20 [employer] Work Phone: WBC (Bld) [#/Vol] 6.6 10*3/uL [employer] Work Phone: WBC (Bld) [#/Vol] NOT REPORTED [employer] Phone: Comprehensive Metabolic Pane lOrdered By: Laz Portillo on 09-20-2020 Albumin [Mass/Vol] 4.1 g/dL 3.5 - 5.2 g/dL [employer] Phone: Albumin/Globulin Ratio NOT REPORTED [employer] Phone: ALP (Bld) [Catalytic activity/Vol] 48 U/L 35 - 104 U/L [employer] Phone: ALT [Catalytic activity/Vol] 17 U/L 5 - 33 U/L [employer] Phone: Anion gap [Moles/Vol] 10 mmol/L 9 - 17 mmol/L [employer] Phone: AST [Catalytic activity/Vol] 25 U/L <32 [employer] Phone: Comment on above: SPECIMEN MODERATELY HEMOLYZED, RESULTS MAY BE ADVERSELY AFFECTED Bilirubin [Mass/Vol] 0.68 mg/dL 0.3 - 1 .2 mg/dL [employer] Phone: Calcium [Mass/Vol] 9.5 mg/dL 8.6 - 10. 4 mg/dL [employer] Phone: Chloride [Moles/Vol] 105 mmol/L 98 - 10 7 mmol/L [employer] Phone: CO2 [Moles/Vol] 24 mmol/L 20 - 31 mmol/L [employer] Phone: Creatinine [Mass/Vol] 0.6 mg/dL 0.50 - 0.90 mg/dL [employer] Phone: Free PSA/Total PSA [Mass fraction] 6.9 g/dL 6.4 - 8.3 g/dL [employer] Phone: GFR >60 >60 mL/min [employer] Work Phone: GFR Non- >60 >60 mL/min [employer] Phone: GFR/1.73 sq M.predicted MDRD (S/P/Bld) [Vol rate/Area] [employer] Phone: Comment on above: Average GFR for 70 o r more years old: 75 mL/min/1.73sq m Chronic Kidney Disease: <60 mL/min/1.73sq m Kidney failure: <15 mL/min/1.73sq m eGFR calculated using average adult body mass. Additional eGFR calculator available at: http://www.eCoast/multiple_crcl_2012.htm GFR/1.73 sq M.predicted MDRD (S/P/Bld) [Vol rate/Area] NOT REPORTED [employer] Phone: Glucose [Mass/Vol] 97 mg/dL 70 - 99 mg/dL [employer] Phone: Potassium [Moles/Vol] 5.6 mmol/L High 3.7 - 5.3 mmol/L [employer] Phone: Comment on above: SPECIMEN MODERATELY HEMOLYZED, RESULTS MAY BE ADVERSELY AFFECTED Sodium [Moles/Vol] 139 mmol/L 135 - 144 mmol/L [employer] Phone: Urea nitrogen (BldV) [Mass/Vol] 18 mg/dL 8 - 23 mg/dL [employer] Phone: Urea nitrogen/Creatinine (Bld) [Mass ratio] NOT REPORTED [employer] Phone: ECHO Complete 2D W Doppler W ColorOrdered By: Laz Portillo on 09-20-2020 [facility] Transthoracic Echocardiography Report (TTE) Patient Name QUINTIN Date of Study 09/20/2020 NU Ibarra Date of 1950 Gender Female Age 70 year(s) Race Room Number Height: 64.96 inch, 165 cm Corporate ID [id number] Weight: 160 pounds, 72.6 kg # Patient Acct [id number] BSA: 1.8 m^2 BMI: 26.66 kg/m^2 # MR # [id number] Concession Manager Elaine Miles Interpreting Osmar Pryor Physician Fellow Referring Nurse Practitioner Interpreting Referring Physician SUNG AGUAYO Fellow JANNETH* Type of Study TTE procedure:2D Echocardiogram, M-Mode, Doppler, Color Doppler. Procedure Date Date: 09/20/2020 Start: 07:43 AM Study Location: [facility] Technical Quality: Fair visualization Indications:Syncope. History / [...] velocity:0.07 m/s Lateral Wall E' velocity:0.10 m/s [employer] Work Phone: Tao, Mhpn Incoming Cardio Results From [facility]/Ge - 09/20/2020 10:17 AM EDT [facility] Transthoracic Echocardiography Report (TTE) Patient Name QUINTIN Date of Study 09/20/2020 [facility] Date of 1950 Gender Female Age 70 year(s) Race Room Number Height: 64.96 inch, 165 cm Corporate ID [id number] Weight: 160 pounds, 72.6 kg # Patient Acct [id number] BSA: 1.8 m^2 BMI: 26.66 kg/m^2 # MR # [id number] Concession Manager GingerElaine Interpreting Osmar Pryor Physician Fellow Referring Nurse Practitioner Interpreting Referring Physician SUNG AGUAYO Fellow JANNETH* Type of Study TTE procedure:2D Echocardiogram, M-Mode, Doppler, Color Doppler. Procedure Date Date: 09/20/2020 Start: 07:43 AM Study Location: [facility] Technical Quality: Fair visualization Indications:Syncope. History / [...] velocity:0.07 m/s Lateral Wall E' velocity:0.10 m/s [employer] Phone: Lipid PanelOrdered By: Iker Portillo on 09-20-2020 Cholesterol [Mass/Vol] 219 mg/dL High <200 [employer] Phone: Comment on above: Cholesterol Guidelines: <200 Desirable 200-240 Borderline >240 Undesirable Cholesterol in HDL [Mass/Vol] 61 mg/dL >40 [employer] Phone: Comment on above: HDL Guidelines: <40 Undesirable 40-59 Borderline >59 Desirable Cholesterol in LDL [Mass/Vol] 129 mg/dL 0 - 130 mg/dL [employer] Phone: Comment on above: LDL Guidelines: <100 Desirable 100-129 Near to/above Desirable 130-159 Borderline >159 Undesirable Direct (measured) LDL and calculated LDL are not interchangeable tests. Cholesterol in VLDL [Mass/Vol] NOT REPORTED 1 - 30 mg/dL [employer] Phone: Cholesterol.total/Cho lesterol in HDL [Mass ratio] 3.6 {ratio} <5 [employer] Phone: Triglyceride [Mass/Vol] 145 mg/dL <150 [employer] Phone: Comment on above: Triglyceride Guidelines: <150 Desirable 150-199 Borderline 200-499 High >499 Very high Based on AHA Guidelines for fasting triglyceride, February 2012. No Panel InformationOrdered By: Laz Portillo on 09-20-2020 Interpretation and review of laboratory results Abnormal [employer] Phone: TSH without ReflexOrdered By : Laz Portillo on 09-20-2020 TSH Qn 1.84 m[IU]/L [employer] Phone: VL Upper Extremity Venous Du plex LeftOrdered By: Laz Portillo on 09-20-2020 [employer], [employer] Incoming Cardio Results From [facility]/Ge - 09/20/2020 11:37 PM EDT [facility] Vascular Upper Extremities Veins Procedure Patient Name QUINTIN Date of Study 09/20/2020 NU Ibarra Date of 1950 Gender Female Age 70 year(s) Race Room Number Corporate ID # [id number] Patient MR # [id number] Concession Manager Roberto Henning Interpreting Physician Dread Hameed Referring [...] ! ! + --+ --+ --- + [employer] Work Phone: Coding Summaryon 08-24-2020 Coding Summary [employer]Base 64 AgijadlgHVq5wKa+PGhlYWQ+ [id number] WJ5JLGUDLCQRML8BJV5jpYS5 BFtvD8JvgcXp KdfuuPIgNI93JLo6WHB9kGqc JPmzbA5qeWMpN6i9IjDnDQ86 hS72CZjkSBDvBvU8FtFhpncy bWFy B4wyKiRwvGWbVft+PHRhYmxl IHdpZHRoPScxMDAlJyBzdHls SA2xUr7pZRKtXXSydTgztBDt OiBj x5kdACPjNOsnEF0ssFdkV4Dp mGL5LWQwd9p6Sz49tXG+PHRk GQC2rMoiWZyji578XhXuh9jd IDM3 vLAsLOnpGMY1Y14db0L6ZOVm ALTnQLI2bNM3eL5rgSbdrskg B0KwtAPhEjQ9AGY9kVAtyR4b bGln gxizpU1vFcs+R42DJF9RYEVW UU5VVxl8D1YyZsyzaHQ+PC90 VQNzSM06oPIxfESlc0uraBo2 JzEw KMQxFOD6gNzfENfhb6BlXXUc I28vsQZqf7Z8YFYupBomyXLm SzFqxRV8iJ0sDUwzjgmax1wr dzsn Rgdtu4ftnn93vS40K10oKYwc JKAoBVV7GRZbZCWhiYxbxu8m kV8mAq7+YDmka9cqs8iguTa8 IjIw XPXymbRfyHsmFPJ9v1IwNx42 O2WdhRyzz6LtJua8zt93hTKe t1W8yIU5XWrgJRGgaH4qWAfc ZnQ6 RVWvMnFpdV58lCYvTRebQl2j uNfuaVepWX2lWGMqutzlURZd pP9yNHKqsTOfqAvlIP4pXCFu bjtm t984AkWiGSU4RMUxsBCxM9Zt pQ7gIyUfGLNsUSRcR2CtyKGb CUngP551KHjkUmC3BQJgkvKr Y2Fs EWJwjMflBrI9k3F1Mw8Ya6Yg fooqASN7KWicLMV8NbK4WtPf EuI3W4YbPjv2RYQxxOqnMH6n J3Bh JMVgartgjznonAZ4KCNlUSAh jV21gYJdNWftWv0ax8L9h792 EVRaZTKwxS81Kp9znKsnFTZt dCBU fU8iiostt2yaymcnYpZeZURh ZLu7LWo1EBWubChbCyHbYBK7 TlP2FWD2pWWuyL7scYwyvspk dG9w Oyc+U72xwZ7vBMK1YME5nlkg ZSTbojBoXT13FB61T2JdObaj dGFibGU+AUHrbqXniDywOK5c YmFj l2jbo0IwDElmO0FqPUXnKBiz Glf4BDDeZIA8kUU0jL1sWVEj TXawm8Q0sXH8F7GefiHmrd3u b2xs KOOxTOdkI84upWIvd5G8CPRs nUO5SDYbmHtpKgIeyN16Bnt+ AMRnfKvpu4EuSvadx6lox9ar dGg9 BjIhBDNttuUlmYebKLC5p6Yj Ze84U17cCJcfDWRnQLEhXQHa MGUouGtyre1koP7tJp7+PGNv bCB3 iHQ4aO5bEYCuIgW3YEanL726 VlMomNOjWemqq9yxv2udpKc1 FvSlZCZygoWxpKnfTYU8c8Fm Lz48 R47nKZzbPEOsWJWdQRMcGJGu oAiypq0yeU4gKy8+FM3zy8dg vl59sG22rIF+FLZeKIS2gUak PSdw GTXlqD6vOCihMtM7YDZkFlBh fA30yZEkWGauQd6loVujlPit SP6mFZKsvkycz926TwYyn9zp IDEw yARwQTbrLPE1W85dk4A9PIWk GFAjPQT8oEE1wV1leVbmpcdx bGVmdDsgdmVydGljYWwtYWxp Z246 IHRvcDsnPlBhdGllbnQgTmFt FLv5U2JrKwc2OAUokMqyYX6y rMOxNGskUl8ezNgxtCkwXV7q NTBp pscrh061HyBvt1egUSPecRKd ULsePRU4J09jl5C6QVFwFCNw WRM9dWW3fJ9htTvtvzqseRKc dDsg wpEthUzmLHewPEaoN899DFEz tZciZiLiasLmEPWcnRS2TC79 IO13zKVnp8M0aSD0Y6OiHKPn bmct qrqmdCI8SDZeLAKkyR82Py8x wKclAb6eEPGsRHR1SUGtxWFm Q0VdzS2qVzFkXEOxLHTcN8Wy eHQt IMqvV671TOrrSaS0RCMdpfEd K8TgJXUatCjcFzT1x7I4Ln2R Y8C7BR66LZ42qIIlf7O4tJK5 J3Bh UWJrnpleaywtuAA3WGGrMMAs fC07Xn0caRmbXg7cWAQxGCB3 NNWxtAQeE4QplY8wVtDlGMMz MDAw L1HdkMNjAEetW025ZXmqYaM2 YDHkhaVpW4ZlRPCxtQevKaH3 d6N8Nk9GWUf8ZE67XR07lAJo c3R5 tVU9E2HrTVOkknjomolfdZS7 MBPvJTGbiU14Yi6ljAweXk3v TTRuRPR0EGCuxYNsE9SusE9o OiAj NAHiARVgW6XnsZDlJKgfN781 LZflPjA5BAApzaLqP6WmGOIw zBrrHtA6y3O4Ki4KIJXwUI88 IFR5 yDL5LZ70ZU60K1EhLrgnrKLj bGU+PHRhYmxlIHdpZHRoPScx FTAjNkWgxWeyBY3xBr5pLJAv LWNv zKfkoXZfQnFuh1zxENTdHPlp VT1kaIszY5EowWG7MJAmc8a2 Uf22H50lM1HqxHT+PGNvbCB3 aWR0 uH5vDhSmRhY1TDoqP172YvDt xEGzXvkjp5nty2zpqIx6EsT0 SDBnruHtdWpeWWK2w2VtQl82 Y29s IHdpZHRoPSIxNSUiIHZhbGln lf5cdS5pOf7+FCMfjKI4pSD1 zP2eOsEtNlH4BJfvJ397WfNq cCIv Artcc3vvx8ealOl6WbKoDKZm mwDmeQzoXAK8c6LaXt54B4He nPfog3XmAwv9wu98dPQpn9U9 bGU9 C6EoZANikuenbJSxqSexMV0l BQToieloNAZdzS3fJRNyA3q1 ThNdOmL1CJqkJ7DmukF9JCCt cHQg PGopYUS1O29uk6F1CSNbIMVa YGC5xLZ1pA4ciFieajdnhLKj mIyvicHonMuzZVkrXIknZ102 IHRv jDdvTBNeyV3fKRYzzVFeqOgq RR8zERTcjfrsJwxNLkZVIVNX EEQFNLPLWX9SMXOFCH73HU25 dGQg v2Y1mDV9J0RnTMGsmvzwugbm bGJ1TDIsQPZcbY14kFXoPQrv Tl0ki2L1j936JAZiTNWmmO27 Zm9u lCcwYBEhiLEPeN6fmznhz8cn hauoGuXyYEFqKFa4ICe6OHKs mWfsEsGnFWS1NrS0GWV0bECl bC1h aFkeqbxsrP4iOae+MTAvMTIv UTl8WRocwIW+IZQyZRN3jRwj CAhtPONbdI7fDSOuB8z1UzDh LjA1 NMqwF8IrPTBpwaovCr48aV4z QkPyEiR7LHcrX0BjsrX9AVDo cKYuGTqwWEY2C25ar4Q5RHRc MDAw WBS3tDK3rV8frYjidtsogBIc nNfhwcIpmTmrFQthVAhlI142 JDKxrVelWpuiZWvdDVPcFB32 ZD48 gVTjs8A7gYA0D9TzMLAdbivu yxjxrDD9SJIdTYCacO88ePIn OGwvGm7sj0R0c775KXQpNICp aW47 Gs3ejEctPYCgyOGYlH4kdsvv a9zlykehSbXiGZElYEx0BZa3 JWUwcTsgXhBxMUQ4JzB6KET3 aWNh wZ1hwNpfqfhdgJ1fAvp+RkVN JEbYFO66PK14qHCoc5T0vPY1 A3RdGUGcbcgtdmuxqAN0ZQIq MDUw sD09vHQhLZieWy0fg1I4f752 KCBaSVOduB09Hp0uzQhvLLJu fVBPxK5yrbbqx4updvipTvIl MDAw NJn7CUb8AAGgyEvkQqTxDEC8 GkA9UHP5rMUteU8phOklvilo bE9oGjs+VrCkhBNabN3wQU81 dHBh cFjxfrM3N1JqDchebJR+PC90 MJThFD37lZNvdTBmv3qaoWg2 WpJtATWvINC9yMfiKCskv0Yh ZXIt L19qxBLoc7L6PGBrsMzzlNZu WgShyPD9lD7vVWtcujjjg1im jifkZwqdm1yqvj43mE36Z23x IHdp RZYwGOTmJFEiWABhbHwvll9a zV7tRc5+AHJacAK7pTY1uW5i ZcBaTxM5SItjG381VfAvjALy Pjxj u4qtw8lvtUl1WqIfOKQquhAw cEwnOTU7d7QeJb32Y79fQGsr GSTjIMFvPXLuRYZugXvkpt3p dG9w Ii8+GY3zd5wzrr86nC49kNG+ GZNcIWE8zFoqTVrqRZJoxB9w ZNaePcR5UZYkUbTifG28vNHc ZGlu Tn2mxXwpgQbnZF6mRWPqevdq w588ShKgj0keKLYijRUiVAdr GAJ9X27vg3P4FCSiCSPyPPB1 dGV4 aJ3siFpcxkxfvBUslQleeeMu mKyeCCfxJOtxA924PBJwgKay OhPxaQInN3cxchBGYJ7kHgge dGQ+ PHNsVCO1jKhyYZydMDAwvE3f FTOeA2y2BmCrEqL4KOlpZ3Aw jwL2FQNokBBlUHBqtNSMtB0m cztj f1verybhToGjPTFqFDo2TGc5 ZBYvwRuqLbMbJPO4IaM0IZB2 oSDdpE1auLozauhgsD8gTvx+ RklO OjwvdGQ+VXHoXDE5nCipXJcj KUOtsI8vUGTbU5f1QrAgUoL8 QNpzT0UxmfG3OZTssFLsRZEd dCBU bG7ysmnkx2koioowJxBuIXKh GTi6ZPb2XAWnuQjyKsOaBNJ0 TpF5IWW6qDRohI3fhFkyzvml dG9w Oyc+TVJOOjwvdGQ+PHRkIHN0 aKdtCRplBSYhdN8gZPDuX9i7 YdZuVuC3QSrpJ7YtfgW9DLDf bGQg VFFxrOWMjC0dghfvn8ribfpr JxJcLTTvXPb6EBj9WOPvrTxe AwGbIFF1RuS9HHW0gAHxvM9v bGln mjcbgS8zDda+JMH9QUW0HO36 JL88Q6BjChoqxPOqsKM+PHRh YmxlIHdpZHRoPScxMDAlJyBz dHls ZT0 (more content not included)... [facility] Coding Summaryon 05-30-2020 Coding Summary CODING DATE: [facility] STATUS: Home PAYOR: Medicare ADMIT DX: [...] Sydney Franklin Date Saved: 05/30/2020 03:43 pm [facility] Physical Therapy Noteon 05-13 Physical Therapy Note [id number] TIFF [facility] ED Clinical Summaryon 2020 ED Clinical Summary [facility] ? Urgent Care [address] [place], [place] [id number] Clinical Summary PERSON INFORMATION Name: NU RIBEIRO Age: 70 Years Sex: FEMALE : 1950 MRN: Acct#: Visit Reason: UC - Dysuria; PAINFUL URINATION Arrival: 05/20/2020 17:32:27 Discharge: 05/20/2020 18:13:00 LOS: 000 00:41 Check In: 05/20/2020 17:32:27 Checkout: 05/20/2020 18:13:00 Address: [address] [place], [place] [address] PCP: Laz Portillo MD PROVIDER INFORMATION Provider [...] EDUCATION INFORMATION Instructions: Urinary Tract Infection, Adult, Tnel-qq-Oust Follow-Up: With: Address: When: Laz Portillo [address] [place] [address] [facility] () Comments: Begin on the bactrim this is your antibiotic, take as written until gone Drink plenty of water, stay hydrated Follow-up with your primary care provider in 5-7 days for reevaluation DIAGNOSIS: UTI (urinary tract infection) Patient Understands: Yes - Patient/family/caregiver verbalizes understanding of instructions given Comment: Normal [facility] ED Patient Summaryon 021 ED Patient Summary [facility] ? Urgent Care [address] [place] [address] PATIENT DISCHARGE INSTRUCTIONS Patient Information Name: NU RIBEIRO Age: 70 Years Date of : 1950 Reason For Visit: UC - Dysuria; PAINFUL URINATION Arrival Time: 05/20/2020 17:32:27 Primary Care Physician: Laz Portillo MD Attending Physician: Kristopher Conway Comment: Patient Education With: Address: When: Laz Portillo [address] [place] [address] [facility] (1) Comments: Begin on the bactrim this [...] these instructions at home: Medicines ? Take abgf-whe-ragxfjk and prescription medicines only as told by [...] Document Reviewed: 11/06/2018 Else[employer] Patient Education ? 2019 [employer] Medication Information: The exam and treatment you received today in the [facility] Emergency Department were for an urgent problem and are not intended as complete care. It is important for you to follow up with a doctor, nurse practitioner (more content not included)... [facility] UA Feulw2an 05-20-2020 UA Bacteria None [facility] Comment on above: Order Comment: Urina lysis Microscopic order added on by [employer] Rules system. Performed By: #### 5 [id number], [id number] ####[facility] (DEFAULT)[address] [place] [address] UA RBC 0-2 [facility] Comment on above: Order Comment: Urina lysis Microscopic order added on by [employer] system. Performed By: #### 5 [id number] ####[facility] (DEFAULT)[address] [place] [address] UA Squam Epi Rare [facility] Comment on above: Order Comment: Urina lysis Microscopic order added on by [employer] system. Performed By: #### 5 [id number], [id number] ####[facility] (DEFAULT)[address] [place] [address] 56125 UA WBC 0-2 [facility] Comment on above: Order Comment: Urina lysis Microscopic order added on by [employer] system. Performed By: #### 5 [id number], [id number] ####[facility] (DEFAULT)[address] [place] [address] 98918 UA w Culture if Ind Standard on 05-20-2020 Breakpoint UA [facility] Comment on above: Performed By: #### 5 [id number] ####[facility] (DEFAULT)[address] [place] [address] Color (U) [place] [facility] Comment on above: Result Comment: Test cannot be satisfactorily determined due to intensely colored urine. Performed By: #### 5 [id number], [id number] ####[facility] (DEFAULT)[address] [place] [address] Culture? Not Indicated Invalid Interpretation Code [facility] Comment on above: Performed By: #### 5 [id number] ####[facility] (DEFAULT)[address] [place] [address] Glucose (U) [Mass/Vol] 250 mg/dL Normal [facility] Comment on above: Performed By: #### 5 [id number], [id number] ####[facility] (DEFAULT)[address] [place] [address] 03532 Ketones Ql (U) TRACE Normal [facility] Comment on above: Performed By: #### 5 [id number], [id number] ####[facility] (DEFAULT)[address] [place] [address] 07205 Micro? Indicated Normal [facility] Comment on above: Performed By: #### 5 [id number], [id number] ####[facility] (DEFAULT)[address] [place] [address] 74896 UA Bilirubin Negative Normal [facility] Comment on above: Performed By: #### 5 [id number], [id number] ####[facility] (DEFAULT)[address] [place] [address] 08464 UA Blood Negative Normal NEGATIVE [facility] Comment on above: Performed By: #### 5 [id number], [id number] ####[facility] (DEFAULT)[address] [place] [address] UA Clarity CLEAR Normal CLEAR [facility] Comment on above: Performed By: #### 5 [id number], [id number] ####[facility] (DEFAULT)[address] [place] [address] 23741 UA Leuk Est Negative Normal NEGATIVE [facility] Comment on above: Performed By: #### 5 [id number], [id number] ####[facility] (DEFAULT)[address] [place] [address] 97324 UA Nitrite Positive Abnormal NEGATIVE [facility] Comment on above: Performed By: #### 5 [id number], [id number] ####[facility] (DEFAULT)[address] [place] [address] 24186 UA pH 5.0 Normal 5-8 [facility] Comment on above: Performed By: #### 5 [id number], [id number] ####[facility] (DEFAULT)[address] [place] [address] UA Protein 100 Abnormal NEGATIVE [facility] Comment on above: Performed By: #### 5 [id number], [id number] ####[facility] (DEFAULT)[address] [place] [address] 35356 UA Spec Grav 1.020 Normal 1.001-1.035 [facility] Comment on above: Performed By: #### 5 [id number], [id number] ####[facility] (DEFAULT)[address] [place] [address] 8[address] UA Urobilinogen >=8.0 Invalid Interpretation Code 0.2-1.0 [facility] Comment on above: Performed By: #### 5 [id number], [id number] ####[facility] (DEFAULT)[address] [place] [address] Urine Source Clean Catch Normal [facility] Comment on above: Performed By: #### 5 [id number], [id number] ####[facility] [facility] (DEFAULT)[address] [place] [id number] Urgent Care Note- Provideron 05-20-2020 Urgent Care [...] Lab Flowsheet 05/20/2020 17:35 EST UA Color [place] UA Clarity CLEAR UA Glucose 250 mg/dL [...] cells patient treated with Bactrim for UTI. [place] color and glucose present likely due to Azo treatment. Pt is not diabetic. Home care instructions provided, pt stated understanding of home care instructions. Follow-up with primary care provider in 5-7 days sooner if worse. Impression and Plan Diagnosis UTI (urinary tract infection) ([id number] N39.0, Discharge, Medical) Plan Prescriptions: Launch prescriptions Pharmacy: Bactrim DS 800 mg-160 mg oral tablet (Prescribe): 1 tab(s), PO, BID, for 3 day(s), 6 tab(s), 0 Refill(s). Patient was given the following educational materials: Urinary Tract Infection, Adult, Wjvv-yh-Yjvr, Urinary Tract Infection, Adult, Hvjm-pe-Rvdc. Follow up with: Laz Portillo Begin on the Cipro this is your antibiotic, take as written until gone Begin on the azo, take as written until gone. This can help with any burning, cramping or discomfort Drink plenty of water, stay hydrated Follow-up with your primary care provider in 5-7 days for reevaluation, Laz Portillo Begin on the bactrim this is your antibiotic, take as written until gone Drink plenty of water, stay hydrated Follow-up with your primary care provider in 5-7 days for reevaluation. Counseled: Patient, Regarding diagnosis, Regarding diagnostic results, Regarding treatment plan, Regarding prescription, Patient indicated understanding of instructions. Normal [facility] Recordon 021 Urgent Care Record [facility] ? Urgent Care [address] [place] [address] PATIENT DISCHARGE INSTRUCTIONS Patient Information Name: NU RIBEIRO Age: 70 Years Date of : 1950 [facility]: [id number] Reason For Visit: UC - Dysuria; PAINFUL URINATION Arrival Time: 05/20/2020 17:32:27 Primary Care Physician: Laz Portillo MD Attending Physician: Kristopher Conway Comment: Visit Diagnosis: Diagnoses This Visit UC - Dysuria ([id number]) UTI (urinary tract infection) (N39.0) If you [...] With: Address: When: Laz Portillo [address] [place] [address] Business (1) Comments: Begin on the bactrim this is your antibiotic, take as written until gone Drink plenty of water, stay hydrated Follow-up with your primary care provider in 5-7 days for reevaluation Medication Information: The exam and treatment you received today in the [facility] were for an urgent problem and are not intended as complete care. It is important for you to follow up with a doctor, nurse practitioner, or physician?s legal executive assistant for ongoing care. If your symptoms [...] so we can reach you if necessary. [facility] has provided you with a complete list of medications post discharge. Please inform your tag press operator/provider of your visit and for further instruction on these medications. Any specific questions regarding your chronic medications and dosages should be discussed with your primary care physician(s) and/or pharmacist. New Medications [facility] , [address] [place], [place] [id number], [phone] sulfamethoxazole-trimeth oprim (Bactrim DS 800 mg-160 mg [...] take antibiotic medi (more content not included)... [facility] Provider Orderson 04-04-2020 Provider Orders [id number] TIFF [facility] CBC Auto Differentialon 09-2 Basophils (Bld) [#/Vol] 0.10 10*3/uL [facility] [place], [place] Basophils/100 WBC (Bld) 1 % 0 - 2 % [place] Differential Type NOT REPORTED [place] Eosinophils (Bld) [#/Vol] 0.40 10*3/uL [place] Eosinophils/100 WBC (Bld) 7 % High 0 - 4 % [place] Erythrocyte distribution width (RBC) [Ratio] 12.7 % 11.5 - 14.9 % [place] Hematocrit (Bld) [Volume fraction] 38.4 % 36 - 46 % [place] Hemoglobin (Bld) [Mass/Vol] 13.3 g/dL 12 - 16 g/dL [place] Interpretation and review of laboratory results Abnormal [place] Lymphocytes (Bld) [#/Vol] 2.00 10*3/uL [place] Lymphocytes/100 WBC (Bld) 34 % 24 - 44 % [place] MCH (RBC) [Entitic mass] 30.6 pg 26 - 34 pg [place] MCHC (RBC) [Mass/Vol] 34.6 g/dL 31 - 3 7 g/dL [place] MCV (RBC) [Entitic vol] 88.4 fL 80 - 100 fL [place] Monocytes (Bld) [#/Vol] 0.40 10*3/uL [place] Monocytes/100 WBC (Bld) 7 % 1 - 7 % [place] Platelet mean volume (Bld) [Entitic vol] 7.3 fL 6 - 12 fL [place] Platelets (Bld) [#/Vol] 226 10*3/uL [place] Platelets (Bld) [#/Vol] NOT REPORTED [place] RBC (Bld) [#/Vol] 4.34 10*6/uL 4 - 5.2 m/uL [place] RBC morphology finding Nom (Bld) NOT REPORTED [place] Segmented neutrophils/100 WBC (Bld) 51 % 36 - 66 % [place] Segs Absolute 3.00 [place] WBC (Bld) [#/Vol] NOT REPORTED per 100 WBC [place] WBC (Bld) [#/Vol] 5.9 10*3/uL [place] WBC Morphology NOT REPORTED [place] Comprehensive Metabolic Pane justino 02-03-2020 Albumin [Mass/Vol] 4.3 g/dL 3.5 - 5.2 g/dL [place] Albumin/Globulin [Mass ratio] NOT REPORTED [place] ALP [Catalytic activity/Vol] 54 U/L 35 - 104 U/L [place] ALT [Catalytic activity/Vol] 14 U/L 5 - 33 U/L [place] Anion gap [Moles/Vol] 9 mmol/L 9 - 17 mmol/L [place] AST [Catalytic activity/Vol] 15 U/L <32 [place] Bilirubin Ql (U) 1.20 mg/dL 0.3 - 1.2 mg/dL [place] Bun/Cre Ratio NOT REPORTED [place] Calcium [Mass/Vol] 10.1 mg/dL 8.6 - 10. 4 mg/dL [place] Chloride [Moles/Vol] 102 mmol/L 98 - 10 7 mmol/L [place] CO2 [Moles/Vol] 27 mmol/L 20 - 31 mmol/L [place] Creatinine [Mass/Vol] 0.7 mg/dL 0.5 - 0.9 mg/dL [place] GFR >60 >60 mL/min [place] GFR Non- >60 >60 mL/min [place] GFR/1.73 sq M predicted among non-blacks MDRD (S/P/Bld) [Vol rate/Area] [place] Comment on above: Average GFR for 70 o r more years old: 75 mL/min/1.73sq m Chronic Kidney Disease: <60 mL/min/1.73sq m Kidney failure: <15 mL/min/1.73sq m eGFR calculated using average adult body mass. Additional eGFR calculator available at: http://www.[employer]af.[employer]/multiple_crcl_2012.htm GFR/1.73 sq M predicted among non-blacks MDRD (S/P/Bld) [Vol rate/Area] NOT REPORTED [place] Glucose [Mass/Vol] 88 mg/dL 70 - 99 mg/dL [place] Potassium [Moles/Vol] 4.7 mmol/L 3.7 - 5.3 mmol/L [place] Protein [Mass/Vol] 7.1 g/dL 6.4 - 8.3 g/dL [place] Sodium [Moles/Vol] 138 mmol/L 135 - 144 mmol/L [place] Urea nitrogen [Mass/Vol] 21 mg/dL 8 - 23 mg/dL [place] Otheron 02-03-2020 Immature granulocytes (Bld) [#/Vol] NOT REPORTED [place] TSH without Reflexon 020 TSH Qn 1.69 m[IU]/L [place], [place] VL Upper Extremity Venous Du plex Lefton 02-03-2020 [facility] Vascular Upper Extremities Veins Procedure Patient Name QUINTIN Date of Study 02/03/2020 [facility] Date of 1950 Gender Female Age 69 year(s) Race Room Number OP Corporate ID [id number] # Patient Acct [id number] # MR # [id number] 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 ! + --+ --+ ---+ [facility] [place], [place] Tao, pn Incoming Cardio Results From 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 ! + --+ --+ --- + [facility] X[facility] SHOULDER LEFT (MIN 2 VIEW S)on 11-12-2019 1. No acute bony or joint abnormality 2. 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 [employer] recommends annual mammograms for women 40 years and older. [employer] [place] EXAMINATION: DIAGNOS TIC DIGITAL LEFT BREAST [...] for a bilateral mammogram in January 2020. [place], [place] Tao, pn Incoming Radiant Results From [employer] - 07/31/2019 6:05 PM EDT EXAMINATION: DIAGNOSTIC [...] to the patient regarding the results. The [employer] recommends annual mammograms for women 40 years and older[address] [facility] Otheron 01-30-2019 No evidence of malignancy. Post [...] sent to the patient regarding the results. [facility] EXAMINATION: BILATER AL DIGITAL DIAGNOSTIC MAMMOGRAM; TARGETED [...] prior study performed in August reportedly aspirated. [facility] [place] Tao, Mhpn Incoming Radiant Results From [employer] - 01/30/2019 4:33 PM EDT EXAMINATION: BILATERAL [...] sent to the patient regarding the results. [facility], [facility] STEREO BREAST BX W LOC D EVICE 1ST LESION LEFTon 12-31-2017 [facility] STEREO BREAST BX W LOC DEVICE 1ST [...] by:Lizbeth Lees MD12/30/17Edited Result - FINAL Normal [facility] MAMMOGRAM POST BX CLIP PLACE MADYSON Thomas [...] by:Lizbeth Lees MD12/30/17Edited Result - FINAL Normal [facility] Surgical Pathologyon 018 Surgical Pathology (NOTE)[id number] LABORATORIESCONSULTING PATHOLOGISTS CORPORATIONANATOMIC [id number] [place] [phone] Fax: SURGICAL PATHOLOGY CONSULTATIONPatient Name: [facility] Rec: [id number] Number: [id number]: 12/26/2017Received: 12/26/2017Reported: 12/27/2017 12:48-- Diagnosis --LEFT BREAST, [...] pathologist (MILENA) who agrees withthe diagnosis. Normal [facility] Comment on above: Performed By: #### P PPVS ####[address] [id number] Vital Signs Date Time Vital Sign Value Performing Clinician Facility 03-08-2024 10:29-0500 Body temperature 97.11 [degF] Gato Cano MD Work Phone: [facility] 07-19-2023 10:29-0500 Body weight 74.9 kg Gato Cano MD Work Phone: [facility] 07-19-2023 10:29-0500 Diastolic blood pressure 66 mm[Hg] Gato Cano MD Work Phone: [facility] 07-19-2023 10:29-0500 Heart rate 69 /min Gato Cnao MD Work Phone: [facility] 07-19-2023 10:29-0500 Respiratory rate 18 /min Gato Cano MD Work Phone: [facility] 07-19-2023 10:29-0500 SaO2% (BldA) [Mass fraction] 100 % Gato Cano MD Work Phone: [facility] 07-19-2023 10:29-0500 Systolic blood pressure 134 mm[Hg] Gato Cano MD Work Phone: [facility] 01-11-2023 14:27-0400 Body height 161.3 cm Allyssa Lopez APRN.PROGRAMMING COORDINATOR Work Phone: [facility] 01-11-2023 14:27-0400 Body temperature 97.7 [degF] Allyssa Lopez APRN.PROGRAMMING COORDINATOR Work Phone: [facility] 01-11-2023 14:27-0400 Body weight 73.75 kg Allyssa Lopez APRN.PROGRAMMING COORDINATOR Work Phone: [facility] 01-11-2023 14:27-0400 Diastolic blood pressure 59 mm[Hg] Allyssa Lopez APRN.PROGRAMMING COORDINATOR Work Phone: [facility] 01-11-2023 14:27-0400 Heart rate 75 /min Allyssa Lopez APRN.PROGRAMMING COORDINATOR Work Phone: [facility] 01-11-2023 14:27-0400 Respiratory rate 16 /min Allyssa Lopez APRN.PROGRAMMING COORDINATOR Work Phone: [facility] 01-11-2023 14:27-0400 SaO2% (BldA) [Mass fraction] 98 % Allyssa Lopez APRN.PROGRAMMING COORDINATOR Work Phone: [facility] 01-11-2023 14:27-0400 Systolic blood pressure 125 mm[Hg] Allyssa Lopez APRN.PROGRAMMING COORDINATOR Work Phone: [facility] 08-16-2022 14:40-0400 Body temperature 97.3 [degF] Josesito Basurto MD Work Phone: [facility] 08-16-2022 14:40-0400 Diastolic blood pressure 74 mm[Hg] Josesito Basurto MD Work Phone: [facility] 08-16-2022 14:40-0400 Heart rate 55 /min Josesito Basurto MD Work Phone: [facility] 08-16-2022 14:40-0400 Respiratory rate 12 /min Josesito Basurto MD Work Phone: [employer] [facility] 08-16-2022 14:40-0400 SaO2% (BldA) [Mass fraction] 98 % Josesito Basurto MD Work Phone: [employer] [facility] 08-16-2022 14:40-0400 Systolic blood pressure 169 mm[Hg] Josesito Basurto MD Work Phone: [facility] 08-16-2022 11:25-0400 Body height 165.1 cm Josesito Basurto MD Work Phone: [facility] 08-16-2022 11:25-0400 Body mass index (BMI) [Ratio] 27.46 kg/m2 Josesito Basurto MD Work Phone: [facility] 08-16-2022 11:25-0400 Body weight 74.84 kg Josesito Basurto MD Work Phone: [employer] 07-12-2022 14:45-0500 Diastolic blood pressure 66 mm[Hg] Josesito Basurto MD Work Phone: [employer] 07-12-2022 14:45-0500 Respiratory rate 17 /min Josesito Basurto MD Work Phone: [employer] 07-12-2022 14:45-0500 SaO2% (BldA) [Mass fraction] 95 % Josesito Basurto MD Work Phone: [employer] 07-12-2022 14:45-0500 Systolic blood pressure 167 mm[Hg] Josesito Basurto MD Work Phone: [employer] 07-12-2022 14:40-0500 Body temperature 97.3 [degF] Josesito Basurto MD Work Phone: [employer] 07-12-2022 14:40-0500 Heart rate 56 /min Josesito Basurto MD Work Phone: [employer] 07-12-2022 11:50-0500 Body height 165.1 cm Josesito Basurto MD Work Phone: [employer] 07-12-2022 11:50-0500 Body mass index (BMI) [Ratio] 27.46 kg/m2 Josesito Basurto MD Work Phone: [employer] 07-12-2022 11:50-0500 Body weight 74.84 kg Josesito Basurto MD Work Phone: [employer] 05-30-2022 19:00-0500 Body height 165.1 cm Татьяна Guerrero Other [employer] Other 05-30-2022 19:00-0500 Body mass index (BMI) [Ratio] 27.45 kg/m2 Татьяна Guerrero Other [employer] Other 05-30-2022 19:00-0500 Body temperature 98 [degF] Татьяна Guerrero Other [employer] Other 05-30-2022 19:00-0500 Body weight 74.84 kg Татьяна Guerrero Other [employer] Other 05-30-2022 19:00-0500 Diastolic blood pressure 74 mm[Hg] Татьяна Guerrero Other [employer] Other 05-30-2022 19:00-0500 Respiratory rate 18 /min Татьяна Guerrero Other [employer] Other 05-30-2022 19:00-0500 SaO2% (BldA) [Mass fraction] 98 % Татьяна Guerrero Other [employer] Other 05-30-2022 19:00-0500 Systolic blood pressure 154 mm[Hg] Татьяна Guerrero Other [employer] Other Encounters Encounter Date Encounter Type Care Provider Facility Start: 02-03-2024 End: 02-03-2024 ambulatory BOLA BERRY Not Available Start: 01-20-2024 End: 01-20-2024 ambulatory BOLA BERRY Not Available Start: 12-22-2023 Refill Gato rodriges MD Work Phone: Hematology/Oncology Comment on above: Refill Request Start: 12-19-2023 End: 12-19-2023 ambulatory DESIREE TOM Not Available Start: 12-12-2023 End: 12-12-2023 ambulatory DESIREE TOM Not Available Start: 10-31-2023 End: 10-31-2023 ambulatory DESIREE TOM Not Available Start: 09-25-2023 Refill Gato rodriges MD Work Phone: Hematology/Oncology Comment on above: Refill Request Start: 07-19-2023 End: 07-19-2023 ambulatory LAZ LEDESMAWINNIE Facility:[facility] Start: 07-19-2023 End: 07-19-2023 ambulatory Chair Tyesha Saleh Work Phone: Hematology/Oncology Comment on above: Osteopenia due to ca ncer therapy (Primary Dx); Malignant neoplasm of upper-outer quadrant of left breast in female, estrogen receptor positive (HCC) Start: 07-19-2023 End: 07-19-2023 Office outpatient visit 25 minutes Gato Cano MD Work Phone: Hematology/Oncology Comment on above: Personal history of malignant neoplasm of breast (Primary Dx); Malignant neoplasm of upper-outer quadrant of left breast in female, estrogen receptor positive (HCC); Breast screening Start: 01-11-2023 End: 01-12-2023 ambulatory Allyssa Lopez APRN.PROGRAMMING COORDINATOR Work Phone: Hematology/Oncology Comment on above: Malignant neoplasm o f upper-outer quadrant of left breast in female, estrogen receptor positive (HCC) (Primary Dx); 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 therapy Osteopenia due to ca ncer therapy (Primary Dx); Malignant neoplasm of upper-outer quadrant of left breast in female, estrogen receptor positive (HCC) Start: 01-11-2023 End: 01-11-2023 Patient encounter procedure Allyssa Lopez APRN.PROGRAMMING COORDINATOR Work Phone: [facility] Start: 08-16-2022 End: 08-16-2022 ambulatory [facility] Start: 08-16-2022 End: 08-16-2022 Subsequent hospital visit by physician Josesito Basurto MD Work Phone: [facility] Start: 07-20-2022 End: 07-20-2022 ambulatory LAZ LEDESMAWINNIE Facility:[facility] Start: 07-17-2022 Telephone encounter Gato olivares MD Work Phone: Hematology/Oncology Comment on above: Lab Orders Start: 07-12-2022 End: 07-12-2022 ambulatory JOSESITO BASURTO [facility] Start: 07-12-2022 End: 07-12-2022 Subsequent hospital visit by physician Josesito Basurto MD Work Phone: [facility] Start: 07-05-2022 End: 07-10-2022 ambulatory LAZ PORTILLO [facility] Start: 07-03-2022 End: 07-04-[address] ALLYSSA LOPEZ Facility:[facility] Start: 05-30-2022 End: 05-30-2022 ambulatory Татьяна Guerrero Other [employer] Other Start: 05-30-2022 Office outpatient ne w 20 minutes Татьяна Guerrero [facility] Start: 02-20-2022 End: 02-21-2022 ambulatory GARO SCHNEIDER . Facility:[facility] Start: 01-28-2022 End: 01-28-[address] DOCTOR ESQUEDA Facility:[facility] Start: 09-28-2021 Telephone encounter Gato olivares MD Work Phone: [facility] Comment on above: Patient Update Start: 09-22-2021 Telephone encounter Gato olivares MD Work Phone: Hematology/Oncology Comment on above: Lab Orders Start: 11-29-2020 End: 11-29-2020 Subsequent hospital visit by physician Laz Portillo MD Work Phone: [facility] Start: 09-20-2020 End: 09-20-2020 Subsequent hospital visit by physician [facility] Comment on above: Arrived Syncope, unspecified syncope type Hypertension, unspec ified type; Fatigue, unspecified type Start: 02-03-2020 End: 02-03-2020 Subsequent hospital visit by physician [facility]m [facility] Comment on above: Swelling of limb; Malignant neoplasm of upper-outer quadrant of left breast in female, estrogen receptor positive (HCC) Chronic fatigue; Cancer of breast, intraductal, left Start: 11-12-2019 End: 11-14-2019 Subsequent hospital visit by physician Walter Xr Room 4 [facility] Comment on above: Rotator cuff arthrop athy of left shoulder Start: 07-31-2019 End: 08-02-2019 Subsequent hospital visit by physician [facility] Jef Mammo [facility] Comment on above: Abnormal mammogram Start: 01-30-2019 End: 02-01-2019 Subsequent hospital visit by physician [facility] Jef Mammo [facility] Comment on above: History of breast ca ncer Lump in female breas t Start: 12-26-2017 End: 12-29-2017 [facility] Procedures Date Procedure Procedure Detail Performing Clinician Start: 11-29-2020 Cyanocobalamin vitamin b-12 Raul Wilina Beny Work Phone: Start: 09-20-2020 Comprehensive metabo lic panel Laz Portillo MD Work Phone: Start: 09-20-2020 Lipid panel Laz Portillo MD Work Phone: Start: 09-20-2020 Dup-scan xtr veins unilateral/limited study Laz Portillo MD Work Phone: Start: 09-20-2020 Echo tthrc r-t 2d w/wom-mode compl spec&colr d Laz Portillo MD Work Phone: Start: 09-20-2020 Lipid 1996 panel - S ladonna or Plasma Chair Delfino Work Phone: Start: 02-03-2020 Assay of thyroid [...] real t karla with image limited Sulaiman Bronson Work Phone: Start: 01-30-2019 Tomosynthesis, mammo screen Sulaiman Bronson Work Phone: Start: 06-26-2018 Colonoscopy Josesito Basurto MD Work Phone: Start: 12-26-2017 SURGICAL PATHOLOGY RANI LORY ASHLYJUSTIN Start: 12-26-2017 Diagnostic mammograp hy computer-aided detcj uni TRIPP LEDESMAWINNIE Start: 12-26-2017 Bx breast w/device 1 st lesion stereotactic guid TRIPP LIMONJUSTIN Plan of Treatment Date Care Activity Detail Author Start: 06-26-2028 Colon cancer screen colonoscopy Colon cancer screen colonoscopy [place] Start: 06-26-2028 Screening for malign ant neoplasm of colon [facility] Start: 07-18-2026 [facility] Start: 01-11-2026 DIABETES SCREEN DIABETES SCREEN [facility] Start: 09-20-2025 Lipid panel [facility] Start: 07-24-2024 End: 07-24-2024 ambulatory 07/24/2024 10:30 AM EDT Infusion Center Hematology/Oncology [address] [place] [address] [place] [address] [facility] Comment on above: [facility] Start: 07-24-2024 End: 07-24-2024 Follow-up encounter 07/24/2024 10:15 AM EDT Visit (SP) Office Hematology/Oncology [address] [place] [address] Gato Cano MD [address] [place] [address] [place] [address] 6 month follow up with lab and prolia Hematology/Oncology Comment on above: 6 month follow up wi lab and prolia Start: 07-24-2024 End: 07-24-2024 Patient encounter procedure 07/24/2024 10:00 AM EDT Office Visit [facility] [address] [place] [address] 6 month follow up with lab and prolia [facility] Comment on above: 6 month follow up wi lab and prolia Start: 07-18-2024 End: 08-17-2024 BD DXA TRABECULAR BONE SCORE (TBS) BD DXA TRABECULAR BONE SCORE (TBS) Radiology Routine Malignant neoplasm of upper-outer quadrant of left breast in female, estrogen receptor positive (HCC) Personal history of malignant neoplasm of breast Expected: 07/18/2024 (Approximate), Expires: 08/17/2024 [facility] Work Phone: Comment on above: Expected: 07/18/2024 (Approximate), Expires: 08/17/2024 Start: 07-18-2024 End: 10-17-2024 Cancer Ag 15-3 [Units/volume] in Serum or Plasma CA 15-3 BLD Lab Routine Malignant neoplasm of upper-outer quadrant of left breast in female, estrogen receptor positive (HCC) Personal history of malignant neoplasm of breast Expected: 07/18/2024 (Approximate), Expires: 10/17/2024 [facility] Work Phone: Comment on above: Expected: 07/18/2024 (Approximate), Expires: 10/17/2024 Start: 07-18-2024 End: 10-17-2024 Cancer Ag 27-29 [Units/volume] in Serum or Plasma CA 27.29 BLOOD Lab Routine Malignant neoplasm of upper-outer quadrant of left breast in female, estrogen receptor positive (HCC) Personal history of malignant neoplasm of breast Expected: 07/18/2024 (Approximate), Expires: 10/17/2024 [facility] Work Phone: Comment on above: Expected: 07/18/2024 (Approximate), Expires: 10/17/2024 Start: 07-18-2024 End: 10-17-2024 CBC W Auto Differential panel - Blood CBC + DIFF Lab Routine Malignant neoplasm of upper-outer quadrant of left breast in female, estrogen receptor positive (HCC) Personal history of malignant neoplasm of breast Expected: 07/18/2024 (Approximate), Expires: 10/17/2024 [facility] Work Phone: Comment on above: Expected: 07/18/2024 (Approximate), Expires: 10/17/2024 Start: 07-18-2024 End: 10-17-2024 Comprehensive metabolic 2000 panel - Serum or Plasma COMP METABOLIC PANEL Lab Routine Malignant neoplasm of upper-outer quadrant of left breast in female, estrogen receptor positive (HCC) Personal history of malignant neoplasm of breast Expected: 07/18/2024 (Approximate), Expires: 10/17/2024 [facility] Work Phone: Comment on above: Expected: 07/18/2024 (Approximate), Expires: 10/17/2024 Start: 07-18-2024 End: 08-17-2024 DXA Skeletal system.axial Views for bone density and vertebral fracture DXA-AXIAL SKELETON WITH VFA Radiology Routine Malignant neoplasm of upper-outer quadrant of left breast in female, estrogen receptor positive (HCC) Personal history of malignant neoplasm of breast Expected: 07/18/2024 (Approximate), Expires: 08/17/2024 [facility] Work Phone: Comment on above: Expected: 07/18/2024 (Approximate), Expires: 08/17/2024 Start: 07-18-2024 End: 08-17-2024 MG Breast Screening NGUYEN SCREENING Radiology Routine Personal history of malignant neoplasm of breast Breast screening Expected: 07/18/2024 (Approximate), Expires: 08/17/2024 [facility] Work Phone: Comment on above: Expected: 07/18/2024 (Approximate), Expires: 08/17/2024 Start: 03-23-2024 DIABETES SCREEN DIABETES SCREEN [facility] Start: 01-12-2024 BP CONTROLLED (<130/80) BP CONTROLLE D (<130/80) [facility] Start: 01-12-2024 Influenza vaccination Influenza Vacc ine (#1) [facility] Start: 08-06-2023 Shingrix Vaccine (2 of 2) Shingrix Vaccine (2 of 2) [facility] Start: 07-26-2023 Depression Monitoring Depression Mon itoring [facility] [place] Start: 07-21-2023 BP CONTROLLED (<130/80) BP CONTROLLE D (<130/80) [facility] Start: 07-12-2023 End: 09-11-2023 CBC W Auto Differential panel - Blood CBC + DIFF Lab Routine Malignant neoplasm of upper-outer quadrant of left breast in female, estrogen receptor positive (HCC) 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 therapy Expected: 07/12/2023, Expires: 09/11/2023 [facility] Work Phone: Comment on above: Expected: 07/12/2023 , Expires: 09/11/2023 Start: 07-12-2023 End: 09-11-2023 Comprehensive metabolic 2000 panel - Serum or Plasma COMP METABOLIC PANEL Lab Routine Malignant neoplasm of upper-outer quadrant of left breast in female, estrogen receptor positive (HCC) 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 therapy Expected: 07/12/2023, Expires: 09/11/2023 [facility] Work Phone: Comment on above: Expected: 07/12/2023 , Expires: 09/11/2023 Start: 05-13-2023 Advance Directive Discussion Advance Directive Discussion [facility] Start: 05-13-2023 Behavioral Health Screening Behavioral Health Screening [facility] Start: 05-13-2023 Depression Assessment Depression Ass essment [facility] Start: 04-27-2023 Annual Wellness Visi t (AWV) Annual Wellness Visit (AWV) [facility] [place] Start: 04-26-2023 Depression Monitoring Depression Mon itoring [employer] [facility] Start: 04-26-2023 DTaP/Tdap/Td vaccine (1 - Tdap) DTaP/Tdap/Td vaccine (1 - Tdap) [facility] [place] Comment on above: Postponed from 02/21 (Patient Refused) Start: 03-03-2023 Screening for malign ant neoplasm of breast Breast cancer screen [employer] [facility] Start: 01-11-2023 Covid-19 Vaccine ( season) Covid-19 Vaccine ( season) [facility] Start: 01-11-2023 Influenza vaccination INFLUENZA (#1) [facility] Start: 12-04-2022 Lipid panel Lipid screen [facility] [place], [place] Start: 12-04-2022 Lipid screen Lipid screen [facility], [place] Start: 10-26-2022 End: 10-26-2022 Patient encounter procedure 10/26/2022 Office Visit Primary Care Laz Portillo MD [address] [place] [id number] [facility] Start: 10-25-2022 COVID-19 Vaccine (3 - Booster for Moderna series) COVID-19 Vaccine (3 - Booster for Moderna series) [facility] Comment on above: Postponed from 09/20 (Patient Refused) Start: 09-24-2022 Pneumococcal 65+ yea rs Vaccine (1 - PCV) Pneumococcal 65+ years Vaccine (1 - PCV) [facility] Comment on above: Postponed from 02/21 (Patient Refused) Start: 08-16-2022 End: 08-16-2022 Xcapsl ctrc rmvl insj io lens prosth w/o ecp EYE CATARACT EMULSIFICATION IOL IMPLANT Cataract of right eye, unspecified cataract type 08/16/2022 1:34 PM EDT [facility] Start: 07-25-2022 Shingles vaccine (1 of 2) Shingles vaccine (1 of 2) [facility] Comment on above: Postponed from 02/21 (Patient Refused) Start: 07-25-2022 End: 07-25-2022 Patient encounter procedure 07/25/2022 Office Visit Primary Care Mary Katz, ICE CREAM SERVER - PROGRAMMING COORDINATOR [address] [place] [address] [facility] Start: 07-12-2022 End: 07-12-2022 Xcapsl ctrc rmvl insj io lens prosth w/o ecp EYE CATARACT EMULSIFICATION IOL IMPLANT Cataract, nuclear sclerotic, left eye 07/12/2022 1:33 PM EST [facility] Start: 05-13-2022 ADVANCE DIRECTIVE DISCUSSION ADVANCE DIRECTIVE DISCUSSION [facility] Start: 05-13-2022 DEPRESSION ASSESSMENT DEPRESSION ASS ESSMENT [facility] Start: 01-11-2022 Influenza vaccination INFLUENZA (Sea son Ended) [facility] Start: 10-02-2021 End: 09-23-2022 CBC W Auto Differential panel - Blood CBC + DIFF Lab Routine Malignant neoplasm of upper-outer quadrant of left breast in female, estrogen receptor positive (HCC) 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 therapy Expected: 10/02/2021 (Approximate), Expires: 09/23/2022 [facility] Work Phone: Comment on above: Expected: 10/02/2021 (Approximate), Expires: 09/23/2022 Start: 10-02-2021 End: 09-23-2022 Comprehensive metabolic 2000 panel - Serum or Plasma COMP METABOLIC PANEL Lab Routine Malignant neoplasm of upper-outer quadrant of left breast in female, estrogen receptor positive (HCC) 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 therapy Expected: 10/02/2021 (Approximate), Expires: 09/23/2022 [facility] Work Phone: Comment on above: Expected: 10/02/2021 (Approximate), Expires: 09/23/2022 Start: 10-02-2021 End: 12-02-2021 VITAMIN D 25 HYDROXY VITAMIN D 25 HYDROXY Lab Routine Malignant neoplasm of upper-outer quadrant of left breast in female, estrogen receptor positive (HCC) 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 therapy Expected: 10/02/2021 (Approximate), Expires: 12/02/2021 [facility] [employer] Work Phone: Comment on above: Expected: 10/02/2021 (Approximate), Expires: 12/02/2021 Start: 09-20-2021 Creatinine measurement Creatinine mo [facility] Work Phone: Start: 09-20-2021 Potassium monitoring Potassium monit [facility] Work Phone: Start: 05-13-2021 ADVANCE DIRECTIVE DISCUSSION ADVANCE DIRECTIVE DISCUSSION [facility] Start: 01-13-2021 End: 01-13-2021 Patient encounter procedure 01/13/2021 Office Visit Family Laz Pendleton MD [address] [place] [address] [phone] [facility] Start: 01-11-2021 Influenza vaccination Flu vaccine (# 1) [facility] Work Phone: Start: 10-28-2020 Adult depression screening assessment DEPRESSION SCREENING [facility] Start: 09-28-2020 End: 09-28-2020 Patient encounter procedure 09/28/2020 Office Visit Family Laz Pendleton MD [address] [place] [address] [phone] [facility] Start: 09-20-2020 COVID-19 VACCINE (3 - Booster for Moderna series) COVID-19 VACCINE (3 - Booster for Moderna series) [facility] Start: 09-20-2020 COVID-19 VACCINE (3 - Moderna series) COVID-19 VACCINE (3 - Moderna series) [facility] Start: 08-23-2020 COVID-19 VACCINE (3 - Moderna risk series) COVID-19 VACCINE (3 - Moderna risk series) [facility] Start: 07-30-2020 Breast cancer screen Breast cancer s creen [place], [place] Start: 07-30-2020 Screening for malign ant neoplasm of breast Breast cancer screen [place], [place] Start: 07-27-2020 Annual Wellness Visi t (AWV) Annual Wellness Visit (AWV) [place] Start: 02-10-2020 End: 02-10-2020 Office Visit 02/10/2020 Office Visit Family Laz Pendleton MD [address] [place] [address] [phone] [facility] Start: 02-03-2020 End: 02-03-2020 Office Visit 02/03/2020 Office Visit Family Medicine Laz Portillo MD [address] [place] [address] [phone] [facility] Start: 01-31-2020 Breast cancer screen Breast cancer s jeanne [place], [place] Start: 01-12-2020 Influenza vaccination Flu vaccine (# 1) [place] Start: 10-23-2019 End: 10-23-2019 Office Visit 10/23/2019 Office Visit Family Medicine Laz Portillo MD [address] [place] [address] [phone] [facility] Start: 05-23-2019 Creatinine measurement Creatinine mo nitoring [place] Start: 05-23-2019 Creatinine monitoring Creatinine mon itoring [place] Start: 05-23-2019 Potassium monitoring Potassium monit oring [place] Start: 01-11-2019 Influenza vaccination Flu vaccine (# 1) [place] Start: 10-08-2018 Annual Wellness Visi t (AWV) Annual Wellness Visit (AWV) [place] Start: 02-21-2013 Pneumococcal 65+ yea rs Vaccine (1 of 1 - PPSV23) Pneumococcal 65+ years Vaccine (1 of 1 - PPSV23) [place] Start: 02-21-2013 Pneumococcal 65+ yea rs Vaccine (1 of 2 - PCV13) Pneumococcal 65+ years Vaccine (1 of 2 - PCV13) [place] Start: 02-21-2013 Pneumococcal Vaccine : 65+ (1 of 1 - PCV) Pneumococcal Vaccine: 65+ (1 of 1 - PCV) [facility] Start: 02-21-2013 PNEUMOCOCCAL: 65+ (1 - PCV) PNEUMOCOCCAL: 65+ (1 - PCV) [facility] Start: 02-21-2013 PNEUMOVAX AGE 65 AND OVER WITH 5YR LOOKBACK (#1) PNEUMOVAX AGE 65 AND OVER WITH 5YR LOOKBACK (#1) [facility] Start: 2008 RSV Vaccine (1 - 1-d ose 60+ series) RSV Vaccine (1 - 1-dose 60+ series) [facility] Start: 02-21-1998 Shingles Vaccine (1 of 2) Shingles Vaccine (1 of 2) [facility] Start: 02-21-1998 SHINGRIX VACCINE (1 of 2) SHINGRIX VACCINE (1 of 2) [facility] Start: 02-21-1993 COLOGUARD (FIT-DNA) COLOGUARD (FIT-D NA) [facility] Start: 02-21-1993 Colonoscopy COLONOSCOPY [facility] Start: 02-21-1993 COLORECTAL CANCER SCREENING COLORECTAL CANCER SCREENING [facility] Start: 02-21-[address] COLONOGRAPHY [facility] Start: 02-21-1993 FECAL OCCULT BLOOD FECAL OCCULT BLOO D [facility] Start: 02-21-1993 LIPID SCREEN LIPID SCREEN [facility] Start: 02-21-1993 Screening for malign ant neoplasm of colon [facility] Start: 02-21-[address] [facility] Start: 1988 Mammography MAMMOGRAM [facility] Start: 02-21-1967 DTaP/Tdap/Td vaccine (1 - Tdap) DTaP/Tdap/Td vaccine (1 - Tdap) [place] Start: 02-21-1967 Urine microalbumin profile [facility] Start: 02-21-1966 ANNUAL PCP TEAM POOL FINISHER FELIZ DISEASE VISIT ANNUAL PCP TEAM CHRONIC DISEASE VISIT [facility] Start: 02-21-1966 Anxiety Screening Anxiety Screening [facility] Start: 02-21-1966 BP CONTROLLED (<130/80) BP CONTROLLE D (<130/80) [facility] Start: 02-21-1966 Depression Screening Depression Scre ening [facility] Start: 02-21-1966 HEPATITIS C SCREENING HEPATITIS C SC TRISTA [facility] Start: 02-21-1954 PNEUMOCOCCAL: 65+ (1 - PCV) PNEUMOCOCCAL: 65+ (1 - PCV) [facility] End: 07-21-2023 CBC W Auto Differential panel - Blood CBC + DIFF Lab Routine Malignant neoplasm of upper-outer quadrant of left breast in female, estrogen receptor positive (HCC) Every 6 months for 2 Occurrences starting 07/21/2022 until 07/21/2023 [facility] Work Phone: Comment on above: Every 6 months for 2 Occurrences starting 07/21/2022 until 07/21/2023 End: 07-21-2023 Comprehensive metabolic 2000 panel - Serum or Plasma COMP METABOLIC PANEL Lab Routine Malignant neoplasm of upper-outer quadrant of left breast in female, estrogen receptor positive (HCC) Every 6 months for 2 Occurrences starting 07/21/2022 until 07/21/2023 [employer] Phone: Comment on above: Every 6 months for 2 Occurrences starting 07/21/2022 until 07/21/2023 End: 09-20-2020 ECHO 2D WO Color Doppler Complete ECHO 2D WO Color Doppler Complete Echocardiography Routine Syncope, unspecified syncope type 1 Occurrences starting 09/20/2020 until 09/20/2020 [employer] Phone: Comment on above: 1 Occurrences starti ng 09/20/2020 until 09/20/2020 End: 08-16-2022 INITIATE PACU OXYGEN THERAPY PROTOCOL Initiate PACU Oxygen Therapy Protocol Respiratory Care Routine Continuous until discontinued starting 08/16/2022 [employer] Phone: Comment on above: Continuous until dis continued starting 08/16/2022 End: 02-10-2024 NGUYEN DIAGNOSTIC BILATERAL NGUYEN DIAGNOSTIC BILATERAL Radiology Routine Malignant neoplasm of upper-outer quadrant of left breast in female, estrogen receptor positive (HCC) 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 therapy 1 Occurrences starting 01/11/2023 until 02/10/2024 [employer] Phone: Comment on above: 1 Occurrences starti ng 01/11/2023 until 02/10/2024 Oxygen therapy [Mini mum Data Set] Initiate Oxygen Therapy Protocol Respiratory Care Routine As Needed until discontinued starting 07/12/2022 [employer] Phone: Comment on above: As Needed until disc ontinued starting 07/12/2022 Oxygen therapy [Mini mum Data Set] Initiate Oxygen Therapy Protocol Respiratory Care Routine As Needed until discontinued starting 08/16/2022 [employer] Phone: Comment on above: As Needed until disc ontinued starting 08/16/2022 End: 02-03-2020 US DUP UPPER EXTREMITY LEFT VENOUS US DUP UPPER EXTREMITY LEFT VENOUS Imaging STAT Swelling of limb Malignant neoplasm of upper-outer quadrant of left breast in female, estrogen receptor positive (HCC) 1 Occurrences starting 02/03/2020 until 02/03/2020 [place] Comment on above: 1 Occurrences starti ng 02/03/2020 until 02/03/2020 [facility] Immunizations Immunization Date Immunization Notes Care Provider [facility] 03-11-2023 influenza virus vaccine, unspecified formulation Gato Cano MD Work Phone: [facility] 05-09-2022 Influenza, FLUAD, (a ge 65 y+), Adjuvanted, 0.5mL Josesito Basurto MD Work Phone: [facility] 2021 Influenza, FLUAD, (a ge 65 y+), Adjuvanted, 0.5mL Josesito Basurto MD Work Phone: [facility] Work Phone: 07-26-2020 COVID-19, MODERNA BL UE border, Primary or Immunocompromised, (age 12y+), IM, 100 mcg/0.5mL Josesito Basurto MD Work Phone: [facility] 06-30-2020 COVID-19, MODERNA BL UE border, Primary or Immunocompromised, (age 12y+), IM, 100 mcg/0.5mL Josesito Basurto MD Work Phone: [facility] Work Phone: 03-09-2020 Influenza, High-dose , Quadv, 65 yrs +, IM (Fluzone) [facility] [address] [facility] 10-13-2018 diphtheria, tetanus toxoids and acellular pertussis vaccine, unspecified formulation [facility] [place] 02-20-2013 seasonal influenza, intradermal, preservative free [facility] Payers Date Payer Category Payer Medicare DEVOTED MEDICARE DEVOTED HEALTH [place] [id number] 2022-[facility] [phone] [address] [place] [address] HMO [id number] 2021 Medicare [id number] 2020 Unknown [id number] 2014 Medicare [id number] 2014 Medicare MEDICARE MEDICAR E PART A AND B xxxxxxxxxxx 2014-Present [phone] [place] [address] xxxxxxxxxxx [id number] 2014 Medicare MEDICARE MEDICAR E PART A AND B [id number] 2014-Present [phone] [place] [address] [id number] 2014 Unknown [employer] [employer] [place] MEDIC[employer] SUPP [id number] 2014-Present [phone] ATTN INDIVIDUAL CLAIMS [address] [place] [address] [id number] 2014 Unknown [employer] [place] [employer] [place] MEDIC[employer] SUPP [id number] 2014-Present [phone] ATTN INDIVIDUAL CLAIMS [address] [place] [address] [id number] 2013 Unknown [employer] [place] [employer] [place] MEDIC[employer] SUPPLEMENT [id number] 2013-Present [phone] [address] [place] [address] Indemnity [id number] 1959 Medicare [id number] 1959 Medicare [id number] 1948 Unknown [id number] 1948 Unknown [id number] 1948 Unknown [id number] 1948 Unknown [id number] 1948 Unknown [id number] 1948 Unknown [id number] 1948 Unknown [id number] 9 1948 Unknown [id number] 9 1948 Unknown [id number] 9 1948 Unknown [id number] 9 1948 Unknown [id number] 9 1948 Unknown [id number] 9 Social History Date Type Detail Facility Start: 07-17-2019 End: 01-11-2023 Tobacco smoking status HIIS Never smoker [facility] Start: 07-17-2019 End: 07-25-2022 Alcohol intake Current non-drinker of alcohol (finding) [place], [place] Start: 1950 [facility]igned [facility] [employer] Start: 02-03-2020 End: 01-11-2023 Tobacco use and exposure Never used [employer] Start: 10-13-2018 End: 01-11-2023 Alcohol intake No [facility] Start: 06-08-2020 End: 07-25-2022 History SDOH Social Connections Phone 5 [employer] Phone: Start: 06-08-2020 End: 07-25-2022 History SDOH Social Connections Get Together 1 [employer] Phone: Start: 06-08-2020 End: 07-25-2022 History SDOH Social Connections Membership 2 [employer] Phone: Start: 06-08-2020 History SDOH Social Connections Meetings 99 [employer] Phone: Start: 06-08-2020 End: 10-12-2021 History SDOH Social Connections Living 3 [employer] Phone: Start: 06-08-2020 History SDOH Education 12 [employer] Phone: Start: 07-02-2022 End: 08-16-2022 Exposure to SARS-CoV-2 (event) Not sure [employer] Phone: Start: 11-18-2020 End: 01-11-2023 Alcohol intake [facility] Start: 03-23-2021 End: 01-11-2023 Alcohol intake Current drinker of alcohol (finding) [facility] Start: 06-24-2018 History SDOH Alcohol Comment rarely [facility] Adult Depression Screening Assessment 0 [facility] NEGATED: Highlighted rowStart: NINF History of tobacco use Passive smoker [facility] Medical Equipment Procedure Code Equipment Code Equipment Origin al Text Equipment Identifier Dates Lens Iol Sn60wf 15.0d - [id number] Start: 07-12-2022 Comment on above: Description: No karime ge for lens implant - included in procedure Lens Io +170 Sai pt L13mm Dia6mm 0deg Haptic Ang A Constant - [id number] Start: 08-16-2022 Comment on above: Description: No karime ge lens - included in procedure Clinical Notes 05-20-2020 to 07-19-2023 Patient InstructionsAbGato ornelas MD - 07/19/2023 10:30 AM Tessa Culp RN - 01/11/2023 3:14 PM Allyssa Hicks APRN.PROGRAMMING COORDINATOR - 01/11/2023 2:22 PM EDTDischarge Instructions Note Date & Type Note Facility 07-19-2023 Note HNO ID: [id number] Author: GATO CANO MD Service: ? Author Type: Physician Type: Progress Notes Filed: 07/20/2023 13:40 Note Text: NAME: Natasha Ribeiro CLINIC NO.: [id number] DATE OF SERVICE: July 19, 2023 (Mona) Some elements in this clinic note that are critical to medical decision making have been carefully reviewed and included from a prior clinic note dated: January 11, 2023 (John). Referring Provider: Dr. Laz Portillo Additional Clinicians involved in Natasha Ribeiro's care: Dr. Bronson, Dr. Wyman, Dr. Lake DIAGNOSIS: 73 year old female with a history of [...] ductal carcinoma, largest invasive component 0.8 cm. ER/IA positive, HER-2 negative, Oncotype recurrence score low (8). Surgical margins negative. The patient underwent a left axillary sentinel node procedure 07/08/2018, and 0 of 15 lymph nodes were involved. Monoallelic mutation of PALB2 gene - ICD9: V84.01, V84.89, V84.09, ICD10: Z15.01, Z15.89, Z15.09 Heterozygous PALB2 mutation of unclear significance identified on [employer] genetic analysis 07/08/2018. 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 Mammogram in 12 months DXA in 12 months Follow up in 12 months labs same day. Exam same day as return. Continue Vit D and Calcium [id number]. HPI: CASE HISTORY: Reverse Chronological Order 07/04/2023 - Bilateral Diagnostic Mammogram: ([place]) Findings: Diagnostic category 2--benign findings. 07/03/2022 - Bilateral diagnostic mammogram ([place]) Findings: Diagnostic category 2--benign findings. 03/03/2021 - DEXA scan ([place]) Osteopenic. 03/03/2021 - Bilateral diagnostic mammogram ([place]) Findings: Diagnostic category-benign findings. 03/02/2020 - Bilateral Diagnostic Mammogram ([place]) Findings: Diagnostic category 2-benign findings. 07/28/2018 [facility] Normal. Updated Visit, July 19, 2023: Doing well and is looking forward to stopping her Arimidex. Needs DXA. Sister passed breast ca another passed from pancreas. Lots of great and grandchildren 3 daughters. Decrease calcium intake. Chaperoned Breast Exam July 19, 2023 (Thelma Padilla): Right breast is normal, Left breast is post surgical scar upper outer quadrant. Salome exam is negative. Updated Visit, January 11, 2023: Natasha Ribeiro [...] that she would lose coverage [facility] at [facility]. Lost her last August 2021 He [...] other pulmonary complaints. She denies any unusual (more content not included)... [facility] 07-19-2023 Instructions Gato Cano MD - 07/19/2023 10:47 AM EST Finish Arimidex when you run out Zolendronic acid today and then continue every 12 months. Mammogram in 12 months DXA in 12 months Follow up in 12 months labs same day. Exam same day as return. Continue Vit D and Calcium [id number]. documented in this encounter [facility] 07-19-2023 History of Presen t illness Narrative Images from the original note were not included. NAME: Natasha Ribeiro CLINIC NO.: [id number] DATE OF SERVICE: July 19, 2023 (Mona) Some elements in this clinic note that are critical to medical decision making have been carefully reviewed and included from a prior clinic note dated: January 11, 2023 (John). Referring Provider: Dr. Laz Portillo Additional Clinicians involved in Natasha Ribeiro's care: Dr. Bronson, Dr. Wyman, Dr. Lake DIAGNOSIS: 73 year old female with a history of [...] ductal carcinoma, largest invasive component 0.8 cm. ER/IA positive, HER-2 negative, Oncotype recurrence score low (8). Surgical margins negative. The patient underwent a left axillary sentinel node procedure 07/08/2018, and 0 of 15 lymph nodes were involved. Monoallelic mutation of PALB2 gene - ICD9: V84.01, V84.89, V84.09, ICD10: Z15.01, Z15.89, Z15.09 Heterozygous PALB2 mutation of unclear significance identified on [employer] genetic analysis 07/08/2018. 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 Mammogram in 12 months DXA in 12 months Follow up in 12 months labs same day. Exam same day as return. Continue Vit D and Calcium diaz-ljk-fccogzw. HPI: CASE HISTORY: Reverse Chronological Order 07/04/2023 - Bilateral Diagnostic Mammogram: ([place]) Findings: Diagnostic category 2--benign findings. 07/03/2022 - Bilateral diagnostic mammogram ([place]) Findings: Diagnostic category 2--benign findings. 03/03/2021 - DEXA scan ([place]) Osteopenic. 03/03/2021 - Bilateral diagnostic mammogram ([place]) Findings: Diagnostic category-benign findings. 03/02/2020 - Bilateral Diagnostic Mammogram ([place]) Findings: Diagnostic category 2-benign findings. 07/28/2018 - [facility] Density ([facility]) Normal. Updated Visit, July 19, 2023: Doing well and is looking forward to stopping her Arimidex. Needs DXA. Sister passed breast ca another passed from pancreas. Lots of great and grandchildren 3 daughters. Decrease calcium intake. Chaperoned Breast Exam July 19, 2023 (Thelma Padilla): Right breast is normal, Left breast is post surgical scar upper outer quadrant. Salome exam is negative. Updated Visit, January 11, 2023: Natasha Ribeiro [...] that she would lose coverage here at [facility]. Lost her last August 2021 He [...] currently on arimidex. 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 This weighs heavily on her. Screening Mammography completed and was BI-Rads 2. She is having some swelling in her left hand past the lymphedema sleeve. She is open to returning to lymphedema clinic but has some reluctance because of the home care she is providing. Her LFT and Bilirubin remain normal. REVIEW OF SYSTEMS Per HPI and otherwise negative by full review of organ systems. ECOG PERFORMANCE STATUS: 0 PHYSICAL EXAMINATION: Vitals: BP 134/66 Pulse 69 Temp (Src) 97.1 (Temporal) Resp 18 Wt 165 lb 2 oz (74.9kg) SpO2 100% Body surface area is 1.83 meters squared. Exam limited to gross visualization where appropriate. Gen.: This is an age-appropriate patient in no acute distress. Head: Appears atraumatic with no visible lesions. Eyes: Pupils equally round and reactive to light, extraocular muscles are intact. Neck: Supple. Respiratory: Appears to be respiring comfortably. Neurologic: Nonfocal to gross visualization. Alert and oriented 3. Psychiatric: No evidence of inappropriate anxiety or depression. Skin: Visible areas of skin without rash, lesions, wounds or petechiae. Chaperoned Breast Exam July 19, 2023 (Thelma Padilla): Right breast is normal, Left breast is post surgical scar upper outer quadrant. Salome exam is negative. ALLERGIES: ALLERGIES No Known Allergies MEDICATIONS: upbqfpfrhyk-iaamjzavh-eofihwzo (TRELEGY ELLIPTA) 200-62.5-25 mcg inhalation powder INHALE 1 PUFF BY MOUTH ONCE DAILY (RINSE AFTER USE) anastrozole (ARIMIDEX) 1 mg tablet Take 1 [...] once daily. multivitamin tablet Take by mouth. lisinopril (ZESTRIL) 40 mg tablet Take 40 mg by mouth. ADVAIR HFA 115-21 mcg/actuation inhaler INHALE 2 PUFFS BY MOUTH TWICE DAILY RINSE MOUTH AFTER USE [DISCONTINUED] gabapentin (NEURONTIN) 300 mg capsule Take 300 mg by mouth three times daily. LABORATORY VALUES: WBC (k/uL) Date Value 07/19/2023 7.77 RBC (m/uL) Date Value 07/19/2023 4.75 Hemoglobin (g/dL) Date Value 07/19/2023 13.7 Hematocrit (%) Date Value 07/19/2023 41.6 MCV (fL) Date Value 07/19/2023 87.6 MCH (pg) Date Value 07/19/2023 28.8 MCHC (g/dL) Date Value 07/19/2023 32.9 RDW-CV (%) Date Value 07/19/2023 12.9 Platelet Count (k/uL) Date Value 07/19/2023 216 MPV (fL) Date Value 07/19/2023 9.6 Glucose (mg/dL) Date Value 07/19/2023 85 BUN (mg/dL) Date Value 07/19/2023 21 Creatinine (mg/dL) Date Value 07/19/2023 0.78 Sodium (mmol/L) Date Value 07/19/2023 141 Potassium (mmol/L) Date Value 07/19/2023 4.8 Chloride (mmol/L) Date Value 07/19/2023 103 CO2 (mmol/L) Date Value 07/19/2023 28 Protein, Total (g/dL) Date Value 07/19/2023 7.3 Albumin (g/dL) Date Value 07/19/2023 4.5 Calcium, Total (mg/dL) Date Value 07/19/2023 10.3 (H) Alkaline Phosphatase (U/L) Date Value 07/19/2023 57 Bilirubin, Total (mg/dL) Date Value 07/19/2023 1.1 AST (U/L) Date Value 07/19/2023 23 ALT (U/L) Date Value 07/19/2023 26 DIAGNOSIS: (Z85.3) Personal history of malignant neoplasm of breast (primary encounter diagnosis) Plan: DXA-AXIAL SKELETON WITH VFA, BD DXA TRABECULAR BONE SCORE (TBS), COMP METABOLIC PANEL, CBC + DIFF, CA 15-3 BLD, CA 27.29 BLOOD, NGUYEN SCREENING (C50.412, Z17.0) Malignant neoplasm of upper-outer quadrant of left breast in female, estrogen receptor positive (HCC) Plan: DXA-AXIAL SKELETON WITH VFA, BD DXA TRABECULAR BONE SCORE (TBS), COMP METABOLIC PANEL, CBC + DIFF, CA 15-3 BLD, CA 27.29 BLOOD, DISCONTINUED: PHARMACY COMMUNICATION PATIENT ARRIVED, DISCONTINUED: zoledronic xm-oxpwbkfe-4.9NaCl 4 mg iv piggyback 100 mL (ZOMETA), DISCONTINUED: sodium chloride 0.9 % (flush) 10-20 mL (BD POSIFLUSH), DISCONTINUED: sodium chloride 0.9 % (flush) 10-20 mL (BD POSIFLUSH) (Z12.39) Breast screening Plan: [facility] SCREENING PAST MEDICAL HISTORY Diagnosis Date Asthma Breast cancer (HCC) Left Depression Hypertension Irritable bowel syndrome 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 therapy 03/23/2021 PAST SURGICAL HISTORY Procedure Laterality Date APPENDECTOMY HX BREAST BIOPSY BREAST LUMPECTOMY HX Left 05/29/2018 CHOLECYSTECTOMY HX FISTULOTOMY SUBCUT HYSTERECTOMY HX REVISE MEDIAN N/CARPAL TUNNEL SURG Right Social History Tobacco Use Smoking status: Never Passive exposure: Never Smokeless tobacco: Never Vaping Use Vaping Use: Never used Substance Use Topics Alcohol use: Yes Comment: rarely Drug use: No FAMILY HISTORY Problem Relation Age of Onset Cancer Sister Breast cancer Cancer Sister Pancreatic cancer Cancer Maternal Aunt Ovarian cancer I spent a total of 30 minutes on the date of the service which included preparing to see the patient, giut-sd-rble patient care, completing clinical documentation, performing a medically appropriate examination, counseling and educating the patient/family/caregiver, ordering medications, tests, or procedures, independently interpreting results (not separately reported), communicating results to the patient/family/caregiver, and care coordination (not separately reported). Gato Cano MD, CPE Hematology and Oncology Services Provided at: [place], [place] CC: Laz Caro MD [address] [place] [id number] Sulaiman Bronson (General Surgery [facility]) documented in this encounter [facility] 01-11-2023 Note HNO ID: [id number] Author: Tessa Gao RN Service: ? Author Type: Registered Nurse Type: Progress Notes Filed: 01/11/2023 4:02 PM Note Text: [id number] Sunni Ribeiro [id number] [facility] 01-11-2023 Note HNO ID: [id number] Author: Allyssa Lopez APRN.BELEN Service: ? Author Type: Nurse Practitioner Type: [...] ductal carcinoma, largest invasive component 0.8 cm. ER/IA positive, HER-2 negative, Oncotype recurrence score low (8). Surgical margins negative. The patient underwent a left axillary sentinel node procedure 07/08/2018, and 0 of 15 lymph nodes were involved. Monoallelic mutation of PALB2 gene - ICD9: V84.01, V84.89, V84.09, ICD10: Z15.01, Z15.89, Z15.09 Heterozygous PALB2 mutation of unclear significance identified on [employer] genetic analysis 07/08/2018. Per medical genetics this [...] as return. Continue Vit D and Calcium jrtf-oqj-pcpzeuh. INTERIM HISTORY: Updated Visit, January 11, 2023: [...] that she would lose coverage here at [facility]. Lost her last August 2021 He [...] currently on arimidex. 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 [facility] 01-11-2023 History of Presen t illness Narrative [id number] Sunni Ribeiro [id number] documented in this encounter [facility] 01-11-2023 History of Presen t illness Narrative [...] ductal carcinoma, largest invasive component 0.8 cm. ER/IA positive, HER-2 negative, Oncotype recurrence score low [...] as return. Continue Vit D and Calcium yshk-kll-wartrjq. INTERIM HISTORY: Updated Visit, January 11, 2023: [...] that she would lose coverage here at [facility]. Lost her last August 2021 He [...] currently on arimidex. 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 Recommendations: Routine mammogram and clinical evaluation in 12 months. 03/03/2021 DEXA scan ([place]) Osteopenic. 03/03/2021 Bilateral diagnostic mammogram ([place]) Findings: Diagnostic category-benign findings. Recommendations: Routine mammogram and clinical evaluation in 12 months. 03/02/2020 Bilateral Diagnostic Mammogram ([place]) Findings: Diagnostic category 2-benign findings. Recommendations: Routine mammogram and clinical evaluation in 12 months. 07/28/2018 Bone Density ([facility]) Normal. Allyssa Lopez APRN.PROGRAMMING COORDINATOR Hematology and Oncology Services Provided at: [place], [place] CC: Dr. Sulaiman Bronson (General Surgery [facility]) I spent a total of 30 minutes on the date of the service which included preparing to see the patient, ammc-tk-brcs patient care, completing clinical documentation, obtaining and/or reviewing separately obtained history, performing a medically appropriate examination, counseling and educating the patient/family/caregiver, ordering medications, tests, or procedures, independently interpreting results (not separately reported), and communicating results to the patient/family/caregiver. documented in this encounter [facility] 08-13-2022 Hospital Discharg e rolando Basurto MD [...] Basurto if you have any problems: Office [phone] 8. Continue all your previous medications. You may use Aspirin, Tylenol, or Advil if needed. 9. You have an appointment in the office: 10. Please bring your drops into the office at your next visit. documented in this encounter [employer] Phone: 07-20-2022 Note HNO ID: [id number] Author: Gato Cano MD Service: ? Author Type: Physician Type: Progress Notes Filed: 07/20/2022 1:57 PM Note Text: PATIENT NAME: Natasha Ribeiro DATE: July 20, 2022 (sujeyde) Some elements in this clinic note that [...] ductal carcinoma, largest invasive component 0.8 cm. ER/IA positive, HER-2 negative, Oncotype recurrence score low [...] that she would lose coverage here at [facility]. Lost her last August 2021 He [...] currently on arimidex. 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 [facility] 07-17-2022 Miscellaneous Notes Formattin g of this note might be different from the original. Orders are . Please sign and/or add labs. Eve Bhakta documented in this encounter [facility] 07-05-2022 Hospital Discharg e rolando Costa RN - 07/05/2022 1:16 PM EST [...] Basurto if you have any problems: Office [phone] 8. Continue all your previous medications. You [...] if your caregiver approves them. Only take rmrm-zfy-yfxqgxq or prescription medicines for pain, discomfort, or [...] Document Reviewed: 08/27/2012 ExitCare Patient Information 2013 Given.to, ki work. documented in this encounter [employer] Phone: 05-30-2022 Evaluation note Encounter Date Diagnosis [...] no improvement in 2 to 3 days [employer] Other 05-24-2022 Miscellaneous Notes* Telephone Encounter - Laura Barber - 10/03/2021 11:29 AM EDT Spoke with patient and informed of Dr. Thomas recommendation patient was very happy with this and asked that we send her records to [facility] when Dr. Pinto is there so that she can follow up with him and she will see him in later december. Ángela can you please forward the patients records to [facility]. * Telephone Encounter - Laura Barber - 10/02/2021 10:00 AM EDT LVM for patient please inform patient of Dr. Thomas message give patient phone number to [facility] [phone]. * Telephone Encounter - Gustavo Pinto MD - 09/30/2021 5:37 PM EDT Happy to see her! Thanks. * Telephone Encounter - Gato Cano MD - 09/30/2021 10:35 AM EDT She should see Dr. Pinto when he starts in [place]. * Telephone Encounter - Laura Barber - 09/28/2021 2:17 PM EDT Spoke with patient due to her insurance changing PFA denied her coming to [facility] because she is out ofnetwork and this would cause the patient a high out of pocket cost Dr. Antonio the patient would like to know who you would like to refer her to in this case? Please advise [facility] Miscellaneous Notes* Telephone Encounter - Oumou Callahan MA - 09/22/2021 12:12 PM EDT Patient has an appt on 10/02/21. Would you like labs, if so place orders. Oumou Callahan MA [facility] NoteEducation Materials Pulmonary Medicine Bronchospasm, Adult Bronchospasm is when airways in the lungs get smaller. When this happens, it can be hard to breathe. You may cough. You may also make a whistling sound when you breathe (wheeze). Follow these instructions at home: Medicines ? Take mheb-zey-elimsll and prescription medicines only as told by [...] provider. Document Revised: 04/11/2018 Document Reviewed: 05/02/2017 [employer] Patient Education ? 2020 [employer]. Asthma, Adult Asthma is a long-term (chronic) [...] pollute the air. These may include household journeyman power plant operator, wood smoke, smog, or chemical odors. ? [...] you are not home. Use a vacuum blind cleaner with a HEPA filter if (more content not included)...[facility] [id number] [facility] Vascular Upper Extremities Veins Procedure Patient Name QUINTIN Date ofStudy 09/20/2020 [facility] Date of 1950 Gender Female Age 70 year(s) Race Room Number Corporate ID # [id number] Patient MR # [id number] Concession Manager Roberto Henning Interpreting Physician Dread Hameed Referring [...] + !SCV !Phasic ! ! + + +--------- + Left UE Vein Measurements 2D Measurements + + + + + !Location !Visualized!Compressibility!Thrombosis! + + + + + !Prox IJV !Yes !Yes !None ! +-------- + + + + !Prox SCV !Yes !Yes !None ! +-- + + + + !Prox Axillary !Yes !Yes !None ! + + + + + !Prox Brachial !Yes !Yes !None ! + + + + + !ProxRadial !Yes !Yes !None ! + + + + + !Prox Ulnar !Yes !Yes !None ! + + + + + !Basilic at UA !Yes !Yes !None ! + + + + + !Basilic at AF !Yes !Yes !None ! + +-------- --+ + + !Basilic at LA !Yes !Yes !None ! + + + + + !Cephalic at UA !Yes !Yes !None ! + + + + + !Cephalic at AF !Yes !Yes !None ! + + + + + !Cephalic at LA !Yes !Yes !None ! +- + + + + Doppler Measurements +--- + + + !Location !Signal !Reflux ! + + + + !IJV !Phasic ! ! +---- + + (more content not included)...[employer] Phone: [phone]) 851-324401-14-2021 Note [id number]#[id number]01-08-2021 NotePatient Education Materials Follows:and Gynecology Urinary Tract [...] these instructions at home: Medicines ? Take wltu-ekt-pmygvrb and prescription medicines only as told by [...] 10/15/2008 Document Revised: 04/16/2019 Document Reviewed: 11/06/2018 [employer] Patient Education ? 2019 [employer] [facility] HospitalEvaluation note * Diagnosis Syncope, unspecified syncope type documented in this encounter [employer] Phone: evaluation note* Diagnosis Hypertension, unspecified type Fatigue, unspecified type documented in this encounter [employer] Phone: evaluation note* Diagnosis Malignant neoplasm of upper-outer quadrant of left breast in female, estrogen receptor positive (HCC)- Primary 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 therapy Disorder of bone and cartilage, unspecified [facility]* Diagnosis Malignant neoplasm of upper-outer quadrant of left breast in female, estrogen receptor positive (HCC)- Primary documented in this encounter [facility] note* Diagnosis Malignant neoplasm of upper-outer quadrant of left breast in female, estrogen receptor positive (HCC)- Primary 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 therapy Disorder of bone and cartilage, unspecified documented in this encounter [facility] note* Diagnosis 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 therapy- Primary Disorder of bone and cartilage, unspecified Malignant neoplasm of upper-outer quadrant of left breast in female, estrogen receptor positive (HCC) documented in this encounter [facility] note* Diagnosis 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 therapy- Primary Disorder of bone and cartilage, unspecified Malignant neoplasm of upper-outer quadrant of left breast in female, estrogen receptor positive (HCC) documented in this encounter [facility] note* Diagnosis Personal history of malignant neoplasm of breast- Primary Malignant neoplasm of upper-outer quadrant of left breast in female, estrogen receptor positive (HCC) Breast screening Breast screening, unspecified documented in this encounter [facility] note* Diagnosis Malignant neoplasm of upper-outer quadrant of left breast in female, estrogen receptor positive (HCC) documented in this encounter [facility] note* Diagnosis Malignant neoplasm of upper-outer quadrant of left breast in female, estrogen receptor positive (HCC) documented in this encounter [facility] general Narrative - Reported* Type Description Date Medical History Asthma Medical History HTN (hypertension) Medical History Anxiety Medical History Glaucoma Surgical History hysterectomy Surgical History cholecystectomy Surgical History breast cancer [employer] Other Reason for referral (narrative)* Diagnostic Procedure Only (Routine) - Pending Review Specialty Diagnoses / Procedures Referred By Alex amador Referred To Contact [facility] Diagnoses Malignant neoplasm of upper-outer quadrant of left breast in female, estrogen receptor positive (HCC) 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 therapy Procedures NGUYEN DIAGNOSTIC BILATERAL DIAGNOSTIC MAMMOGRAPHY COMPUTER-AIDED DETCJ Allyssa Mejia APRN.CNP [address] [place] [address] [place] [address] [facility] [address] [place] [id number] Referral ID Status Reason Start Date Expiration Date Visits Requested Visits Authorized [id number] Pending Review Auto-Generat ed Referral 01/11/2023 02/10/2024 1 1 [facility] for referral (narrative)* Diagnostic Procedure Only (Routine) - Pending Review Specialty Diagnoses / Procedures Referred By Alex amador Referred To Contact BR IMAGING Diagnoses Personal history of malignant neoplasm of breast Breast screening Procedures NGUYEN SCREENING SCREENING MAMMOGRAPHY BI 2-VIEW BREAST INC CAD Gato Cano MD [address] [place] [address] [facility] [address] [place] [address] Referral ID Status Reason Start Date Expiration Date Visits Requested Visits Authorized [id number] Pending Review Auto-Generat ed Referral 07/18/2024 08/17/2024 1 1 * Diagnostic Procedure Only (Routine) - Pending Review Specialty Diagnoses / Procedures Referred By Alex t Referred To Contact XR IMAGING Diagnoses Malignant neoplasm of upper-outer quadrant of left breast in female, estrogen receptor positive (HCC) Personal history of malignant neoplasm of breast Procedures DXA-AXIAL SKELETON WITH VFA DXA BONE DENSITY STUDY AXIAL SKELETON Gato Cano MD [address] [place] [address] [place] [address] Referral ID Status Reason Start Date Expiration Date Visits Requested Visits Authorized [id number] Pending Review Auto-Generat ed Referral 07/18/2024 08/17/2024 1 1 [facility] Summary Purpose Family History No Family History Records FoundNo Family History Records FoundNo Family History Records FoundNo Family History Records FoundNo Family History Records FoundNo Family History Records Found Advance Directives No Advanced Directives Records FoundDocuments on File Type Date Recorded 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 Advance Directives and Living Will Power of Food Safety Technician Documents on File Type Date Recorded 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 Advance Directives and Living Will Power of Food Safety Technician Documents on File Type Date Recorded 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 ACP-Advance Directive ACP-Power of Food Safety Technician Documents on File Type Date Recorded 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 ACP-Advance Directive ACP-Power of Food Safety Technician Latest Code Status on File Code Status [...] OR WO CAD LEFT Estiven Canela MD [address] [place] [address] [place] [address] Status Reason Specialty Diagnoses / Procedures Referre d By Contact Referred To Contact Closed Radiology Diagnoses Swelling of limb Malignant neoplasm of upper-outer quadrant of left breast in female, estrogen receptor positive (HCC) Procedures US DUP UPPER EXTREMITY LEFT VENOUS Laz Portillo MD [address] [place] [address] Status Reason Specialty Diagnoses / Procedures Referred By Contact Referred To Contact Authorized Radiology Diagnoses History of breast cancer Procedures NGUYEN DIGITAL DIAGNOSTIC W OR WO CAD BILATERAL Sulaiman Bronson MD [address] [place] [address] Status Reason Specialty Diagnoses / Procedures Referred By Contact Referred To Contact Pending Review Radiology Diagnoses Lump in female breast Procedures US BREAST LIMITED LEFT Sulaiman Bronson MD [address] [place] [address] Status Reason Specialty Diagnoses / Procedures Referre d By Contact Referred To Contact Closed Diagnoses Syncope, unspecified syncope type Procedures ECHO 2D WO Color Doppler Complete Laz Portillo MD [address] [place] [id number] Assessments Diagnosis Abnormal mammogram Abnormal mammogram, unspecified [...] 01/11/2023 3:15 PM EDT 650 mg zoledronic fg-yriydqsa-3.9NaCl 4 mg iv piggyback 100 mL (ZOMETA) 4 mg, INTRAVENOUS, Administer over 15 Minutes, ONCE, 1 dose, On Sat01/11/23 at 1530, Hazardous Potential Reproductive Risk Drug: Use appropriate PPE. New Bag/Syringe/Bottle 01/11/2023 3:43 PM EDT 4 mg Additional Source Comments INFORMATION SOURCE (unrecogn ized section and content) DATE CREATED AUTHOR 12/31/2017 [facility] DATE CREATED AUTHOR AUTHOR'S ORGANIZ ATION 03/31/2021 [facility] DATE CREATED AUTHOR AUTHOR'S ORGANIZ ATION 07/07/2022 [facility] [facility] DATE CREATED AUTHOR AUTHOR'S ORGANIZ ATION 08/18/2022 [facility] DATE CREATED AUTHOR AUTHOR'S ORGANIZ ATION 07/20/2023 [facility] DATE CREATED AUTHOR AUTHOR'S ORGANIZ ATION 02/05/2024 [facility] dical Specialists EPIC Reason for Visit (unrecogniz ed section and content) Status Reason Specialty Diagnoses / Procedures Referre d By Contact Referred To Contact Open Radiology Diagnoses Personal history of malignant neoplasm of breast Procedures HC MAMMO DGX UNILATERAL INCL CAD IF PERF Keegan Canela [address] [place] [address] [facility] [address] [place] [address] Status Reason Specialty Diagnoses / Procedures Referre d By Contact Referred To Contact Closed Radiology Diagnoses Swelling of limb Malignant neoplasm of upper-outer quadrant of left breast in female, estrogen receptor positive (HCC) Procedures US DUP UPPER EXTREMITY LEFT VENOUS Laz Portillo MD [address] [place] [address] Status Reason Specialty Diagnoses / Procedures Referre d By Contact Referred To Contact Open Radiology Diagnoses Malignant neoplasm of unspecified site of left female breast Procedures HC MAMMO DGX BILATERAL INCL CAD IF PERF Sulaiman Bronson MD [address] [place] [address] [address] Status Reason Specialty Diagnoses / Procedures Referred By Contact Referred To Contact Pending Review Radiology Diagnoses Malignant neoplasm of unspecified site of left female breast Procedures HC US BREAST LTD Sulaiman Bronson MD [address] [place] [address] [address] Status Reason Specialty Diagnoses / Procedures Referred By Contact Referred To Contact Authorized Cardiology Diagnoses Hypertension, unspecified type Syncope, unspecified syncope type Procedures [id number] - IA Duplex Scan Extracranial, Luis M Laz Portillo MD [address] [place] [id number] Status Reason Specialty Diagnoses / Procedures Referre d By Contact Referred To Contact Closed Diagnoses Syncope, unspecified syncope type Procedures ECHO 2D WO Color Doppler Complete Laz Portillo MD [address] [place] [address] Reason Comments Lab Orders Reason Comments Patient Update Specialty Diagnoses / Procedures Referred By Contac t Referred To Contact Diagnoses Cataract, nuclear sclerotic, left eye Cataract, nuclear sclerotic, left eye [H25.12] Procedures IA XCAPSL CTRC RMVL INSJ IO LENS PROSTH W/O ECP EYE CATARACT EMULSIFICATION IOL IMPLANT LEFT EYE PERIBULBAR ; Josesito Dawn MD [address] [facility] [address] [place] [address] [facility] [address] [place] [address] Referral ID Status Reason Start Date Expiration Date Visits Re quested Visits Authorized [id number] 1 1 Specialty Diagnoses / Procedures Referred By Contac t Referred To Contact Diagnoses Cataract of right eye, unspecified cataract type Cataract of right eye, unspecified cataract type [H26.9] Procedures IA XCAPSL CTRC RMVL INSJ IO LENS PROSTH W/O ECP EYE CATARACT EMULSIFICATION IOL IMPLANT Josesito Basurto MD [address] [facility] [address] [place] [address] [facility] [address] [place] [address] Referral ID Status Reason Start Date Expiration Date Visits Re quested Visits Authorized [id number] 1 1 Reason Comments Breast Cancer Specialty Diagnoses / Procedures Referred By Contac t Referred To Contact Diagnoses Malignant neoplasm of upper-outer quadrant of left breast in female, estrogen receptor positive (HCC) 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 therapy Procedures INJECTION, ZOLEDRONIC ACID, 1 MG Gato Cano MD [address] [place] [address] [address] Treat [address] [place] [address] Referral ID Status Reason Start Date Expiration Date V isits Requested Visits Authorized [id number] Authorized 07/20/2022 01/19/2023 1 1 Referral ID Status Reason Start Date Expiration Date V isits Requested Visits Authorized [id number] Authorized 07/20/2022 01/22/2024 3 3 Reason Comments Breast Cancer Reason Comments Refill Request Source Comments (unrecognize d section and content) In the event this informatio n is protected by the Federal Confidentiality of Alcohol and Drug Abuse Patient Records regulations: The Federal rules restrict any use of the information to criminally investigate or prosecute any alcohol or drug abuse patient.[facility] the event this information is protected by the Federal Confidentiality of Alcohol and Drug Abuse Patient Records regulations: The Federal rules restrict any use of the information to criminally investigate or prosecute any alcohol or drug abuse patient.[facility] the event this information is protected by the Federal Confidentiality of Alcohol and Drug Abuse Patient Records regulations: The Federal rules restrict any use of the information to criminally investigate or prosecute any alcohol or drug abuse patient.[facility] the event this information is protected by the Federal Confidentiality of Alcohol and Drug Abuse Patient Records regulations: The Federal rules restrict any use of the information to criminally investigate or prosecute any alcohol or drug abuse patient.[facility] the event this information is protected by the Federal Confidentiality of Alcohol and Drug Abuse Patient Records regulations: The Federal rules restrict any use of the information to criminally investigate or prosecute any alcohol or drug abuse patient.[facility] the event this information is protected by the Federal Confidentiality of Alcohol and Drug Abuse Patient Records regulations: The Federal rules restrict any use of the information to criminally investigate or prosecute any alcohol or drug abuse patient.[facility]In the event this information is protected by the Federal Confidentiality of Alcohol and Drug Abuse Patient Records regulations: The Federal rules restrict any use of the information to criminally investigate or prosecute any alcohol or drug abuse patient.[facility]In the event this information is protected by the Federal Confidentiality of Alcohol and Drug Abuse Patient Records regulations: The Federal rules restrict any use of the information to criminally investigate or prosecute any alcohol or drug abuse patient.[facility]In the event this information is protected by the Federal Confidentiality of Alcohol and Drug Abuse Patient Records regulations: The Federal rules restrict any use of the information to criminally investigate or prosecute any alcohol or drug abuse patient.[facility] Care Teams (unrecognized sec tion and content) Adoption Services Manager Relationship Specialty Start Date End Date Laz Portillo MD [address] [place] [phone] PCP - General Family Practice 06/24/18 Adoption Services Manager Relationship Specialty Start Date End Date Laz Portillo MD [address] [place] [id number] PCP - General Family Practice 06/24/18 Adoption Services Manager Relationship Specialty Start Date End Date Laz Portillo MD [address] [place] [address] PCP - General Family Medicine 11/12/19 Adoption Services Manager Relationship Specialty Start Date End Date Laz Portillo MD [address] [place] [address] PCP - General Family Medicine 06/24/18 Adoption Services Manager Relationship Specialty Start Date End Date Laz Portillo MD [address] [place] [id number] PCP - General Family Medicine 11/12/19 Adoption Services Manager Relationship Specialty Start Date End Date Laz Portillo MD [address] [place] [address] PCP - General Family Medicine 06/24/18 Adoption Services Manager Relationship Specialty Start Date End Date Laz Portillo MD [address] [place] [address] PCP - General Family Medicine 06/24/18 Adoption Services Manager Relationship Specialty Start Date End Date Laz Portillo MD [address] [place] [address] PCP - General [facility] Medicine 06/24/18 Adoption Services Manager Relationship Specialty Start Date End Date Laz Portillo MD [address] [place] [address] PCP - General [facility] 06/24/18 Adoption Services Manager Relationship Specialty Start Date End Date Laz Portillo MD [address] [place] [address] PCP - General [facility] Medicine 06/24/18 Scheduled Active and Recently Administ [...] 1218 (New Bag - Prov ider: Sheila Bell RN) PRN Medication Order 07/10/2022 07/11/2022 07/12/2022 0.9 [...] 0.2 mg (CANCELED) PRN, Starting on Chayo 07/12/22 at [...] MIN PRN, 2 doses, Starting on Chayo 07/12/22 at 1120, Until Chayo 3 at 1221, pre-op, One drop to operative eye(s) for 2 doses 5 minutes apart, prior to surgery, Pre-op (day of surgery) 1215 (Given - Provid er: Sheila Bell RN)1221 (Given - Provider: Sheila Bell RN) bupivacaine (PF) (MARCAINE) 0.5 % injection (CANCELED) PRN, Starting on Chayo 3//23 at 1347, Until Chayo 3/2/23 at 1416, Intra-op 1347 (Given - Provid [...] (CANCELED) PRN, Starting on Chayo 3//23 at 1413, Until Chayo 3/2/23 at 1416, Intra-op 1413 (Given - Provid er: Josesito Basurto MD) hyaluronidase human (HYLENEX) injection (CANCELED) PRN, Starting on Chayo 3//23 at 1347, Intra-op 1347 (Given - Provid er: Josesito Basurto MD - Comment: FOR BLOCK) ketorolac (ACULAR) 0.5 % ophthalmic solution 1 drop (COMPLETED) 1 drop, Left Eye, EVERY 5 MIN PRN, 3 doses, Starting on Chayo 3//23 at 1124, Until Chayo 3/2/23 at 1225, pre-op, To operative eye(s) for 3 doses, every 5 minutes, starting 20 minutes prior to surgery, Pre-op (day of surgery) 1216 (Given - Provid er: Sheila Bell RN)1221 (Given - Provider: Sheila Bell RN)1225 (Given - Provider: Sheila Bell RN) lidocaine 0.75%, EPINEPHrine 0.025% in BSS ophthalmic injection (CANCELED) PRN, Starting on Chayo 07/12/22 at 1347, Until Chayo 3 at 1416, Intra-op 1347 (Given - Provid er: Josesito Basurto MD) lidocaine PF 1 % injection 1 mL (COMPLETED) 1 mL, IntraDERmal, ONCE PRN, 1 dose, Starting on Chayo 07/12/22 at 1120, Until Chayo 07/12/22 at 1219, IV start, Pre-op (day of surgery) 1219 (Given - Provid er: Sheila Bell RN) lidocaine PF 4 % injection (CANCELED) PRN, Starting on Chayo 07/12/22 at 1347, Until Chayo 323 at 1416, Intra-op 1347 (Given - Provid er: Josesito Basurto MD - Comment: FOR BLOCK) qcfozonr-nmjcrczpu-ndlgxpia ophthalmic ointment (CANCELED) PRN, Starting on Chayo 07/12/22 at 1413, Intra-op 1413 (Given - Provid er: Josesito Basurto MD) phenylephrine (MYDFRIN) 2.5 % ophthalmic solution 1 drop (COMPLETED) 1 drop, Left Eye, EVERY 5 MIN PRN, 3 doses, Starting on Chayo 07/12/22 at 1124, Until Chayo 323 at 1226, pre-op, To operative eye(s) for 3 doses, every 5 minutes, starting 20 minutes prior to surgery, [facility] - enter number of doses based on parameters defined by the physician in the admin. comments., Pre-op (day of surgery) 1216 (Given - Provid er: Sheila Bell RN)1221 (Given - Provider: Sheila Bell RN)1226 (Given - Provider: Sheila Bell RN) prednisoLONE acetate (PRED MILD) 0.12 % ophthalmic suspension (CANCELED) PRN, Starting on Chayo 07/12/22 at 1413, Until Chayo 323 at 1416, Intra-op 1413 (Given - Provid [...] minutes, starting 20 minutes prior to surgery, [facility] - enter number of doses based on [...] er: Sheila Bell RN)1211 (Given - Provider: Shelia Bell RN)1216 (Given - Provider: Sheila Bell RN) ketorolac (ACULAR) 0.5 % ophthalmic solution 1 drop 1 drop, Right Eye, SEE ADMIN INSTRUCTIONS, Starting on Chayo 08/16/22 at 1109, Until Discontinued, To operative eye(s) for 3 doses, every 5 minutes, starting 20 minutes prior to surgery, Pre-op (day of surgery) 1207 (Given - Provid er: Sheila Bell RN)1211 (Given - Provider: Sheila Blel RN)1216 (Given - Provider: Sheila Bell RN) phenylephrine (MYDFRIN) 2.5 % ophthalmic solution 1 drop 1 drop, Right Eye, SEE ADMIN INSTRUCTIONS, Starting on Chayo 08/16/22 at 1109, Until Discontinued, To operative eye(s) for 3 doses, every 5 minutes, starting 20 minutes prior to surgery, [facility] - enter number of doses based on [...] RN)1216 (Given - Provider: Sheila Bell RN) Continuous Medication Order 08/14/2022 08/15/2022 08/16/2022 lactated ringers IV soln infusion IntraVENous, at 125 mL/hr, CONTINUOUS, Starting on Chayo 08/16/22 at 1130, Pre-op (day of surgery) 1204 (New Bag - Prov ider: Sheila Bell RN)1337 (NoRateChange - Provider: Pacheco Mckeon APRN - STORAGE MANAGEMENT CONSULTANT) PRN Medication Order 08/14/2022 08/15/2022 08/16/2022 0.9 [...] 08/16/22 at 1109, Until Chayo 08/16/22 at 1211, pre-op, One drop to operative [...] on Chayo 08/16/22 at 1356, Until Chayo 08/16/22 at 1414, Intra-op 1356 (Given - Provid [...] Josesito Basurto MD - Comment: PERIBULBAR BLOCK) ggdllzzm-wvwoqegvk-gsxrpmom ophthalmic ointment (CANCELED) PRN, Starting on Chayo 08/16/22 at 1410, Intra-op 1410 (Given - Provid er: Kenna Marquez RN) ondansetron (ZOFRAN) injection 4 mg 4 mg, IntraVENous, ONCE PRN, 1 dose, Starting on Sat08/16/22 at 1434, Until Sat08/17/22 at 1434, Nausea, [...] (Given - Provid er: Kenna Marquez RN) Inactive Administered Medications - up to 3 most recent administrations Administered Medications (un recognized section and content) Medication Order MAR Action Action Date Dose Rate Site zoledronic ur-jwbkvuwh-0.9NaCl 4 mg iv piggyback 100 mL (ZOMETA) 4 mg, INTRAVENOUS, Administer over 15 Minutes, ONCE, 1 dose, On Sat07/19/23 at 1130, Hazardous Potential Reproductive Risk Drug: Use appropriate PPE. New Bag/Syringe/Bottle 07/19/2023 11:20 AM EST 4 mg FOR RECORDS PERTAINING TO PATIENTS WHO ARE [...] BE BASED ON THE PRIMARY CLINICAL RECORDS. [facility]. provides no warranty or guarantee of the accuracy or completeness of information in this document.
[2024-02-21 19:31] VITALS: BP 156/99; PULSE 86; TEMP 37.2; O2SAT 99; BMI 29.6
--- NOTE | 2024-02-21 19:46 | XR_ITS ---
The [address] [address] Patient Name: NU RIBEIRO MRN: [id number] date: 1950 Sex: F Assigned Patient Location: ER Current Patient Location: Accession/Order Number: [id number] Exam Date: 02/21/2024 19:55 Report Date: 02/21/2024 21:14 At the request of: TAYLOR GIFFORD Procedure: XR ankle LT min 3V EXAM: XR ankle LT min 3V HISTORY: pain, twisting injury COMPARISON: [X-ray 01/28/2022. TECHNIQUE: AP, oblique, lateral x-ray left ankle. FINDINGS: Undisplaced linear fracture distal fibula with adjacent lateral to swelling. Normal symmetric mortise. No other fracture seen. Degenerative changes with spurring. Prominent posterior and plantar calcaneal spurs. Spurring throughout the mid foot. Probable joint effusion. XR/XR ankle LT min 3V IMPRESSION: Nondisplaced fracture distal fibula. Symmetric mortise. Soft tissue swelling and probable joint effusion. Degenerative spurring. Electronically authenticated by: KENDRA MOLINA Date: 02/21/2024 21:14
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
[2024-02-21] MEDS: ADACEL DIPH,PERTUSS(ACELL),TET VAC/PF 0.5 ML ADULT SYRINGE IM (20:11)
[2024-02-21] MEDS: IBUPROFEN 600 MG TABLET PO (20:12)
[2024-02-21] MEDS: BACITRACIN 0.9 GM PACKET 1 PACKET TOPICAL (20:33)
[2024-02-21] MEDS: HYDROCODONE/ACET 5-325 MG TABLET 2 TAB PO (20:56)
[2024-02-21 21:00] VITALS: BP 136/70; PULSE 78; O2SAT 96
== END 2024-02-21 21:00 | disposition home or self-care (01) ==
PROVIDERS: Emergency Provider Emergency Medicine; PCP Family Medicine
DX: S82.832A Other fracture of upper and lower end of left fibula, initial encounter for closed fracture (principal); V28.41XA Electric (assisted) bicycle driver injured in noncollision transport accident in traffic accident, initial encounter; Z23 Encounter for immunization
CPT/HCPCS: 73610; 90471; 90715; 99283

== ENCOUNTER 2024-04-24 14:24 | Outpatient (OUT) | payer OTHER, SELFPAY ==
--- NOTE | 2024-04-24 14:31 | CT_ITS ---
[address] [address] Patient Name: NU RIBEIRO MRN: [id number] date: 1950 Sex: F Assigned Patient Location: CT Current Patient Location: Accession/Order Number: [id number] Exam Date: 04/24/2024 14:42 Report Date: 04/27/2024 13:10 At the request of: GARO SCHNEIDER Procedure: CT chest wo con EXAMINATION: CT chest wo con HISTORY: Solitary pulmonary nodule COMPARISON: 04/30/2023 TECHNIQUE: Multi-planar CT images were created with IV contrast. Axial, Coronal, and Sagittal images. Dose reduction techniques were achieved by using automated exposure control and/or adjustment of mA and/or kV according to patient size and/or use of iterative reconstruction technique. FINDINGS: LUNGS: Scattered punctate pulmonary nodules stable both in number and size from the prior exam. No new significant nodule or mass PLEURA: No mass, effusion, or pneumothorax. VASCULATURE: No abnormality. SAIMA: No mass or adenopathy. MEDIASTINUM: No mass or adenopathy. CARDIAC: No enlargement or pericardial effusion Coronary arteries: Mild calcifications AORTA: No aortic aneurysm. Mild calcific atherosclerosis CHEST WALL: No mass or axillary adenopathy. BONES: No bone lesion or fracture. LIMITED ABDOMEN: No suspicious findings. Limited images of the upper abdomen. OTHER: Negative. CT/CT chest wo con IMPRESSION: Few scattered stable pulmonary nodules measuring up to 2 mm Electronically authenticated by: DEVAN RIZZO Date: 04/27/2024 13:10
--- OUTSIDE RECORDS SUMMARY | 2024-04-24 14:42 | XMS_ITS | CCD ---
Author Organization [facility] Care Team Providers Care Director Biostatistics Name Role Phone TRIPP PORTILLO Unavailable Unavailable LAZ PORTILLO Unavailable Unavailabl e TRIPP PORTILLO Unavailable Unavailable LAZ PORTILLO Unavailable Unavailabl Sulaiman Osorio Primary Care Provider Laz Portillo Primary Care Provider Laz Portillo [...] LAZ PORTILLO Primary Care Unavailabl e BASURTO, JOESSITO Referring Unavailable BASURTO, JOSESITO Admitting Unavailable BASURTO, JOSESITO Attending Unavailable LAZ PORTILLO Primary Care Unavailabl e BASURTO, JOSESITO Admitting Unavailable BASURTO, JOSESITO Attending Unavailable RAGWINNIE, LAZ M Primary Care Unavailabl e RAGOTHAMAN, LAZ ABNER Primary Care Unava ilable RAGOTHAMAN, LAZ ABNER Primary Care Unava ilable ALLYSSA LOPEZ Attending Unavailable ABHYANKAR, GATO Referring Unavailable ABHYANKAR, GATO Referring Unavailable RAGOTHAMAN, LAZ ABNER Primary Care Unava ilable RAGOTHAMAN, LAZ ABNER Primary Care Unava ilable ABHYANKAR, GATO Attending Unavailable RAGOTHAMAN, LAZ ABNER Primary Care Unava ilable ABHYANKAR, GATO Referring Unavailable RAGOTHAMAN, LAZ ABNER Primary Care Unava ilable ABHYANKAR, GATO Referring Unavailable RAGOTHAMAN, LAZ ABNER Primary Care Unava ilable ABHYANKAR, GATO Attending Unavailable ABHYANKRICHY, GATO Referring Unavailable Lindsey [facility] Provi jesus Laz Portillo MD [facility] Provider [phone] DESIREE BHAKTA Attending Unavailable DESIREE BHAKTA Attending Unavailable JR. ADAIR, BOLA Doan Attending Unavailalex GUAMAN JR., BOLA Doan Referring Unavaila toan GUAMAN JR., BOLA Doan Attending Unavaila CLEMENTINA Mcclure Attending Unavailable DESIREE BHAKTA Attending Unavailable CLEMENTINA RAMOS Attending Unavailable CLEMENTINA RAMOS Referring Unavailable CLEMENTINA RAMOS Attending Unavailable CLEMENTINA RAMOS Referring Unavailable Medications Current Medications Medication Drug Class(es) Dates Sig (Normalized) Sig (Original) [id number] 200 actuat albuterol 0.09 mg/actuat metered dose inhaler (20 sources) beta2-Adrenergic Agonist take 2 puff(s) by inhalation every four hours albuterol HFA 90 mcg/act inhaler Inhale 2 puffs every 4 (four) hours if needed. Active take 2 puff(s) by in halation every [...] 0 Active anastrozole 1 mg oral tablet (20 sources) Aromatase Inhibitor Start: 08-07-2018 End: 12-23-2023 anastrozole (Arimidex) 1 MG chemo tablet 1 (one) time each day at the same time. 12/24/2019 Active Comment on above: Take 1 tablet by raad once daily. 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 180 tablet 3 07/20/2022 Active Comment on above: Take 1 tablet by [facility] twice daily. calcium chloride 0.0014 meq/ml / potassium chloride 0.004 meq/ml / sodium chloride 0.103 meq/ml / sodium lactate 0.028 meq/ml injectable solution (2 sources) Start: 08-16-2022 lactated ringe rs IV soln infusion Start: 07-12-2022 lactated ringe [...] cartridge (1 source) Histamine-1 Receptor Antagonist Start: 2022 End: 2022 diphenhydrAMINE (BENADRYL) injection 12.5 mg donepezil hydrochloride 10 mg oral tablet (11 sources) Start: 2023 take 1 tablet by mouth at bedtime donepezil (Aricept) 10 MG tablet Indications: Mild cognitive impairment with memory loss Take 1 tablet (10 mg) by mouth at bedtime 30 tablet 11 12/19/2023 Active dorzolamide 20 mg/ml ophthalmic solution (1 source) Carbonic Anhydrase Inhibitor Dorzolamide HCl 2 % Ophthalmic for 25 Days Active 1 ml fentaNYL 0.05 mg/ml injection (2 sources) Opioid Agonist Start: 2022 fentaNYL (SUBLIMAZE) injection 50 mcg Start: 08-16-2022 fentaNYL (SUBL IMAZE) injection 25 mcg FLUoxetine 40 mg oral capsule (20 sources) Serotonin Reuptake Inhibitor Start: 04-11-2018 End: 08-13-2022 FLUoxetine (PROzac) 40 MG capsule 1 (one) time each day at the same time. 04/11/2018 Active Comment on above: Take 40 mg by mouth. fluticasone propionate 0.05 mg/actuat metered dose nasal spray (1 source) Corticosteroid Start: 05-30-2022 take 2 spray(s) nasal route once daily Fluticasone Propionate 50 MCG/ACT 2 sprays Nasally Once a day for 14 day(s) May, Active 120 actuat fluticasone propionate 0.115 mg/actuat / salmeterol 0.021 mg/actuat metered dose inhaler (20 sources) Corticosteroid, beta2-Adrenergic Agonist Start: 09-20-2021 Advair HFA 115-21 MCG/ACT inhaler every 12 (twelve) hours. 09/20/2021 Active Start: 09-20-2021 take 2 puff(s) by mo uth twice daily ADVAIR HFA 115-21 mcg/actuation inhaler INHALE 2 PUFFS BY MOUTH TWICE DAILY RINSE MOUTH AFTER USE 0 06/20/2022 Active Comment on above: INHALE 2 PUFFS BY MO UTH TWICE DAILY RINSE MOUTH AFTER USE fluticasone-umeclidin -vilanter (TRELEGY ELLIPTA) 200-62.5-25 mcg inhalation powder (4 sources) Start: 4 take 1 puff(s) by mouth once daily fluticasone-umecli din-vilanter (TRELEGY ELLIPTA) 200-62.5-25 mcg inhalation powder INHALE 1 PUFF BY MOUTH ONCE DAILY (RINSE AFTER USE) 0 06/07/2023 Active Comment on above: INHALE 1 PUFF BY RAAD TH ONCE DAILY (RINSE AFTER USE) ketorolac tromethamine 5 mg/ml ophthalmic solution (2 sources) Nonsteroidal Anti-inflammatory Drug, Cyclooxygenase Inhibitor Start: 3 ketorolac (ACULAR) 0.5 % ophthalmic solution 1 drop Start: 07-12-2022 End: 07-12-2022 ketorolac (ACULAR) 0.5 % oph thalmic solution 1 drop latanoprost 0.05 mg/ml ophthalmic solution (13 sources) Prostaglandin Analog Start: 03-07-2022 take 1 drop(s) into the eye(s) in the evening latanoprost (Xalatan) 0.005 % ophthalmic solution INSTILL 1 DROP INTO EACH EYE IN THE EVENING DIRECTED 03/07/2022 Active lisinopril 40 mg oral tablet (19 sources) Angiotensin Converting Enzyme Inhibitor take 1 tablet by mouth in the morning lisinopril 40 MG tablet Take 40 mg by mouth in the morning. Active Comment on above: Take 40 mg by mouth. LORazepam 0.5 mg oral tablet (1 source) Benzodiazepine Start: 11-25-2020 End: 12-25-2020 take 1 tablet by mouth twice daily LORazepam (ATIVAN) 0.5 MG tablet Indications: Anxiety Take 1 tablet by mouth 2 times daily for 30 days. 60 tablet 0 11/25/2020 12/25/2020 Active Multiple Vitamin (Multi-Vitamin) tablet (13 sources) Multiple Vitamin (Multi-Vitamin) tablet Take by mouth. Active multivitamin tablet (9 sources) multivitamin tablet Take by mouth. 0 Active Comment on [...] Drug Class(es) Dates Sig (Normalized) Sig (Original) Apoaequorin 10 MG CAPS (1 source) Start: [...] once daily. ibuprofen 800 mg oral tablet (20 sources) Nonsteroidal Anti-inflammatory Drug Start: 09-24-2016 ibuprofen [...] Classification Problem Date Documented Da te Episodic/Chronic Acute cerebrovascular disease (13 sources) Lacunar infarction; Translations: [Other cerebral infarction due to occlusion or stenosis of small artery] Onset: 08-07-2023 10-31-2023 Chronic Asthma (17 sources) Severe persistent asthma, uncomplicated; Translations: [Uncomplicated severe persistent asthma] Onset: 02-20-2022 Chronic Cancer of breast (20 [...] CATARACT] Onset: 07-05-2022 Disorders of lipid metabolism (20 sources) Hyperlipidemia; Translations: [Hyperlipidemia, unspecified] Onset: 01-23-2013 01-23-2013 Chronic Essential hypertension (20 sources) Hypertensive disorder; Translations: [Essential (primary) hypertension] Onset: 01-23-2013 01-23-2013 Chronic Fracture of lower limb (8 sources) Nondisplaced fracture of third metatarsal bone, left foot, initial encounter for closed fracture; Translations: [Nondisplaced fracture of fourth metatarsal bone, left foot, initial encounter for closed fracture] Onset: 01-30-2022 02-24-2024 Episodic Malaise and fatigue (2 sources) Fatigue; Translations: [Other fatigue] Episodic Mood disorders (20 sources) Depressive disorder; Translations: [Major depressive disorder, single episode, unspecified] Onset: 01-23-2013 01-23-2013 Chronic Other connective tissue disease (1 source) Swelling of limb; Translations: [Swelling of limb] Episodic Other hereditary and degenerative nervous system conditions (13 sources) Hereditary essential tremor; Translations: [Essential tremor] Onset: 08-07-2023 10-31-2023 Chronic Other hereditary and degenerative nervous system conditions (16 sources) Mild cognitive impairment, so stated; Translations: [Mild cognitive impairment, so stated] Onset: 12-19-2023 12-19-2023 Chronic Other non-traumatic joint disorders (2 sources) Acute ankle pain; Translations: [Pain in left ankle and joints of left foot] 02-24-2024 Episodic Other non-traumatic joint disorders (1 source) Rotator cuff arthropathy of left shoulder; Translations: [Rotator cuff arthropathy of left shoulder] Other screening for suspected conditions (not mental disorders or infectious disease) (2 sources) Mammography abnormal; Translations: [Patient encounter status] 07-19-2023 Episodic Syncope (1 source) Syncope; Translations: [Syncope and collapse] Episodic Unclassified (1 source) Unspecified lump in the left breast, unspecified quadrant; Translations: [Unspecified lump in the left breast, unspecified quadrant] Onset: 12-26-2017 Past or Other Problems Problem Classification Problem Date Documented Da te Episodic/Chronic Abdominal pain (13 sources) Left lower quadrant pain; Translations: [Left lower quadrant pain] Onset: 4 10-31-2023 Episodic Acute bronchitis (13 sources) Acute bronchitis; Translations: [Acute bronchitis, unspecified] Onset: 3 10-31-2023 Episodic E Codes: Struck by; against (14 sources) Striking against or struck by other objects, initial encounter; Translations: [Other accident caused by striking against or being struck accidentally by objects or persons] Onset: 2 10-31-2023 Episodic Genitourinary symptoms and ill-defined conditions (13 sources) Dark yellow urine; Translations: [Other symptoms and signs involving the genitourinary system] Onset: 4 10-31-2023 Episodic Nonmalignant breast conditions (1 source) Breast lump; Translations: [Lump in female breast] Episodic Other bone disease and musculoskeletal deformities (20 sources) Osteopenia; Translations: [Other specified disorders of bone density and structure, unspecified site] Onset: 1 Episodic Other bone disease and musculoskeletal deformities (1 source) Other specified disorders of bone density and structure, unspecified site; Translations: [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 therapy] Onset: 1 Episodic Other connective tissue disease (3 sources) Pain in left foot; Translations: [PAIN IN LEFT FOOT] Onset: 2 Episodic Other connective tissue disease (13 sources) Pain in left foot; Translations: [Pain in left foot] Onset: 2 10-31-2023 Episodic Other gastrointestinal disorders (13 sources) H/O: gastrointestinal disease; Translations: [Personal history of other diseases of the digestive system] Onset: 4 10-31-2023 Episodic Other lower respiratory disease (13 sources) Chronic cough; Translations: [Chronic cough] Onset: 3 10-31-2023 Episodic Other lower respiratory disease (13 sources) Solitary nodule of lung; Translations: [Solitary pulmonary nodule] Onset: 4 10-31-2023 Episodic Other non-traumatic joint disorders (13 sources) Pain in right knee; Translations: [Pain in joint, lower leg] Onset: 4 10-31-2023 Episodic Other upper respiratory infections (14 sources) Acute sinusitis, unspecified; Translations: [Acute sinusitis] Onset: 4 Episodic Residual codes; unclassified (2 sources) Estrogen receptor positive status [ER+]; Translations: [ESTROGEN RECEPTOR POSITIVE STATUS] Onset: 9 Episodic Residual codes; unclassified (13 sources) Estrogen receptor positive tumor; Translations: [Estrogen receptor positive status [ER+]] Onset: 3 10-31-2023 Episodic Unclassified (1 source) Contact with and (suspected) exposure to covid-19 Z20.822 Unclassified (1 source) Mild cognitive impairment with memory loss 03-09-2024 Results Test Name Value Interpretation Reference Range Facility XR Ankle - left 3 [facility] Result: 03/24/2024: AP lateral and mortise view of left ankle showed increase in callus formation to the distal fibular fracture compared to prior x-rays. Talus is well centered in the talar dome and ankle mortise was well preserved without instability. There was no acute bony process including but not limited to displacement of current fracture and/or newfracture. Impression: Healing fracture left distal fibula Clementina Ramos [employer] [facility] XR Ankle - left 3 ViewsOrder ed By: Jr. Guaman on 03-25-2024 [facility] Work Phone: XR Ankle - left 3 [facility] Study observation (narrative) [facility] XR Ankle - left 3 [facility] Imaging Result: 03/03/2024: AP, LAT and Oblique of left ankle demonstrate nondisplaced distal fibula fracture in stable position and alignment within fiberglass cast. She is noted to have baseline osteoarthritis of the left ankle. 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 CBC W Auto Differential pane l (Bld)on 07-19-2023 Basophils (Bld) [#/Vol] 0.04 10*3/uL Normal <0.11 [facility] Comment on above: Order Comment: Speci men Type: BLOOD SPECIMEN Ordering Facility: [facility] Address: [address] [place] [address] Performed By: #### 5 7021-8 #### [facility] CLIA [id number] [address] [place] [address] 11451 Basophils/100 WBC (Bld) 0.5 % Normal [facility] Comment on above: Order Comment: Speci men Type: BLOOD SPECIMEN Ordering Facility: [facility] Address: [address] [place], [place] [id number] Performed By: #### 5 7021-8 #### [facility] CLIA [id number] [address] [place] [address] 89410 Differential cell count method Nom (Bld) Auto Normal [facility] Comment on above: Order Comment: Speci men Type: BLOOD SPECIMEN Ordering Facility: [facility] Address: [address] [place] [address] Performed By: #### 5 7021-8 #### [facility] CLIA [id number] [address] [place] [address] 25419 Eosinophils (Bld) [#/Vol] 0.45 10*3/uL Normal <0.46 [facility] Comment on above: Order Comment: Speci men Type: BLOOD SPECIMEN Ordering Facility: [facility] Address: [address] [place] [address] Performed By: #### 5 7021-8 #### [facility] CLIA [id number] [address] [place] [address] 99652 Eosinophils/100 WBC (Bld) 5.8 % Normal [facility] Comment on above: Order Comment: Speci men Type: BLOOD SPECIMEN Ordering Facility: [facility] Address: [address] [place] [address] Performed By: #### 5 7021-8 #### [facility] CLIA [id number] [address] [place] [address] 04453 Erythrocyte distribution width (RBC) [Ratio] 12.9 % Normal 11.5-15.0 [facility] Comment on above: Order Comment: Speci men Type: BLOOD SPECIMEN Ordering Facility: [facility] Address: [address] [place] [address] Performed By: #### 5 7021-8 #### [facility] CLIA [id number] [address] [place] [address] 48827 Hematocrit (Bld) [Volume fraction] 41.6 % Normal 36.0-46.0 [facility] Comment on above: Order Comment: Speci men Type: BLOOD SPECIMEN Ordering Facility: [facility] Address: [address] [place] [address] Performed By: #### 5 7021-8 #### [facility] CLIA [id number] [address] [place] [address] Hemoglobin (Bld) [Mass/Vol] 13.7 g/dL Normal 11.5-15.5 [facility] Comment on above: Order Comment: Speci men Type: BLOOD SPECIMEN Ordering Facility: [facility] Address: [address] [place] [address] Performed By: #### 5 7021-8 #### [facility] CLIA [id number] [address] [place] [address] 07229 Immature granulocytes (Bld) [#/Vol] 10*3/uL Normal <0.10 [facility] Comment on above: Order Comment: Speci men Type: BLOOD SPECIMEN Ordering Facility: [facility] Address: [address] [place] [address] Performed By: #### 5 7021-8 #### [facility] CLIA [id number] [address] [place] [address] 61456 Immature granulocytes/100 WBC (Bld) 0.1 % Normal [facility] Comment on above: Order Comment: Speci men Type: BLOOD SPECIMEN Ordering Facility: [facility] Address: [address] [place] [address] Performed By: #### 5 7021-8 #### [facility] CLIA [id number] [address] [place] [address] 54000 Lymphocytes (Bld) [#/Vol] 1.94 10*3/uL Normal 1.00-4.00 [facility] Comment on above: Order Comment: Speci men Type: BLOOD SPECIMEN Ordering Facility: [facility] Address: [address] [place] [address] Performed By: #### 5 7021-8 #### [facility] CLIA [id number] [address] [place] [address] 50437 Lymphocytes/100 WBC (Bld) 25.0 % Normal [facility] Comment on above: Order Comment: Speci men Type: BLOOD SPECIMEN Ordering Facility: [facility] Address: [address] [place] [address] Performed By: #### 5 7021-8 #### [facility] CLIA [id number] [address] [place] [address] 95735 MCH (RBC) [Entitic mass] 28.8 pg Normal 26.0-34.0 [facility] Comment on above: Order Comment: Speci men Type: BLOOD SPECIMEN Ordering Facility: [facility] Address: [address] [place] [address] Performed By: #### 5 7021-8 #### [facility] CLIA [id number] [address] [place] [address] 98323 MCHC (RBC) [Mass/Vol] 32.9 g/dL Normal 30.5-36.0 [facility] Comment on above: Order Comment: Speci men Type: BLOOD SPECIMEN Ordering Facility: [facility] Address: [address] [place] [address] Performed By: #### 5 7021-8 #### [facility] CLIA [id number] [address] [place] [address] 46665 MCV (RBC) [Entitic vol] 87.6 fL Normal 80.0-100.0 [facility] Comment on above: Order Comment: Speci men Type: BLOOD SPECIMEN Ordering Facility: [facility] Address: [address] [place] [address] Performed By: #### 5 7021-8 #### [facility] CLIA [id number] [address] [place] [address] 69798 Monocytes (Bld) [#/Vol] 0.40 10*3/uL Normal <0.87 [facility] Comment on above: Order Comment: Speci men Type: BLOOD SPECIMEN Ordering Facility: [facility] Address: [address] [place] [address] Performed By: #### 5 7021-8 #### [facility] CLIA [id number] [address] [place] [address] 44352 Monocytes/100 WBC (Bld) 5.1 % Normal [facility] Comment on above: Order Comment: Speci men Type: BLOOD SPECIMEN Ordering Facility: [facility] Address: [address] [place] [address] Performed By: #### 5 7021-8 #### [facility] CLIA [id number] [address] [place] [address] 56413 Neutrophils (Bld) [#/Vol] 4.93 10*3/uL Normal 1.45-7.50 [facility] Comment on above: Order Comment: Speci men Type: BLOOD SPECIMEN Ordering Facility: [facility] Address: [address] [place] [id number] Performed By: #### 5 7021-8 #### [facility] CLIA [id number] [address] [place] [address] 57403 Neutrophils/100 WBC (Bld) 63.5 % Normal [facility] Comment on above: Order Comment: Speci men Type: BLOOD SPECIMEN Ordering Facility: [facility] Address: [address] [place] [address] Performed By: #### 5 7021-8 #### [facility] CLIA [id number] [address] [place] [address] 77192 Nucleated RBC (Bld) [#/Vol] 10*3/uL Normal <0.01 [facility] Comment on above: Order Comment: Speci men Type: BLOOD SPECIMEN Ordering Facility: [facility] Address: [address] [place] [address] Performed By: #### 5 7021-8 #### [facility] CLIA [id number] [address] [place] [address] 67613 Nucleated RBC/100 WBC (Bld) [Ratio] 0.0 /100 WBC Normal [facility] Comment on above: Order Comment: Speci men Type: BLOOD SPECIMEN Ordering Facility: [facility] Address: [address] [place] [address] Performed By: #### 5 7021-8 #### [facility] CLIA [id number] [address] [place] [address] 88785 Platelet mean volume (Bld) [Entitic vol] 9.6 fL Normal 9.0-12.7 [facility] Comment on above: Order Comment: Speci men Type: BLOOD SPECIMEN Ordering Facility: [facility] Address: [address] [place] [address] Performed By: #### 5 7021-8 #### [facility] CLIA [id number] [address] [place] [address] 72814 Platelets (Bld) [#/Vol] 216 10*3/uL Normal 150-400 [facility] Comment on above: Order Comment: Speci men Type: BLOOD SPECIMEN Ordering Facility: [facility] Address: [address] [place] [address] Performed By: #### 5 7021-8 #### [facility] CLIA [id number] [address] [place] [address] 67258 RBC (Bld) [#/Vol] 4.75 10*6/uL Normal 3.90-5.20 [facility] Comment on above: Order Comment: Speci men Type: BLOOD SPECIMEN Ordering Facility: [facility] Address: [address] [place] [address] Performed By: #### 5 7021-8 #### [facility] CLIA [id number] [address] [place] [address] 86896 WBC (Bld) [#/Vol] 7.77 10*3/uL Normal 3.70-11.00 [facility] Comment on above: Order Comment: Speci men Type: BLOOD SPECIMEN Ordering Facility: [facility] Address: [address] [place] [address] Performed By: #### 5 7021-8 #### [facility] IA [id number] [address] [place] [address] 47897 CNOVSPon 07-19-2023 CNOVSP Visit (SP) Office ([place]) -------- NATASHA RIBEIRO ([id number]) 1950 F Date Time Provider Department 07/19/23 10:30 AM GATO CANO During your visit today, we recorded the following information about you: Temperature Pulse Respiration Blood pressure 97.1 degrees 69/minute 18/minute 134/66 Weight 74.9 kg Gato Cano MD 07/20/2023 1:40 PM Signed NAME: Natasha Ribeiro CLINIC NO.: [id number] DATE OF SERVICE: July 19, 2023 ([place]) [...] ductal carcinoma, largest invasive component 0.8 cm. ER/MT positive, HER-2 negative, Oncotype recurrence score low (8). Surgical margins negative. The patient underwent a left axillary sentinel node procedure 07/08/2018, and 0 of 15 lymph nodes were involved. Monoallelic mutation of PALB2 gene - ICD9: V84.01, V84.89, V84.09, ICD10: Z15.01, Z15.89, Z15.09 Heterozygous PALB2 mutation of unclear significance identified on [facility] genetic analysis 07/08/2018. Per medical genetics this [...] as return. Continue Vit D and Calcium [id number]. - HPI: CASE HISTORY: Reverse Chronological Order 07/04/2023 - Bilateral Diagnostic Mammogram: ([place]) Findings: Diagnostic category 2--benign findings. 07/03/2022 - Bilateral diagnostic mammogram ([place]) Findings: Diagnostic category 2--benign findings. 03/03/2021 - DEXA scan ([place]) Osteopenic. 03/03/2021 - Bilateral diagnostic mammogram ([place]) Findings: Diagnostic category-benign findings. 03/02/2020 - Bilateral Diagnostic Mammogram ([place]) Findings: Diagnostic category 2-benign findings. 07/28/2018 [facility] Normal. Updated Visit, July 19, 2023: Doing [...] that she would lose coverage here at [facility]. Lost her last August 2021 He [...] September 14 (more content not included)... Normal [facility] Comprehensive metabolic 2000 panelon 07-19-2023 Albumin [Mass/Vol] 4.5 g/dL Normal 3.9-4.9 [facility] Comment on above: Order Comment: Vicky baron Type: BLOOD SPECIMEN Ordering Facility: [facility] Address: [address] [place] [address] Performed By: #### 2 4323-8 #### [facility] CLIA [id number] [address] [place] [address] 36027 ALP [Catalytic activity/Vol] 57 U/L Normal 34-123 [facility] [facility] Comment on [facility]: Order Comment: Vicky baron Type: BLOOD SPECIMEN [facility]ing Facility: [facility] Address: [address] [place] [address] Performed By: #### 2 4323-8 #### [facility] CLIA [id number] [address] [place] [address] 18654 ALT [Catalytic activity/Vol] 26 U/L Normal 7-38 [facility] Comment on above: Order Comment: Speci men Type: BLOOD SPECIMEN Ordering Facility: [facility] Address: [address] [place] [address] Performed By: #### 2 4323-8 #### [facility] CLIA [id number] [address] [place] [address] Anion gap [Moles/Vol] 10 mmol/L Normal 9-18 [facility] Comment on above: Order Comment: Speci men Type: BLOOD SPECIMEN Ordering Facility: [facility] Address: [address] [place] [address] Performed By: #### 2 4323-8 #### [facility] CLIA [id number] [address] [place] [address] 14788 AST [Catalytic activity/Vol] 23 U/L Normal 13-35 [facility] Comment on above: Order Comment: Speci men Type: BLOOD SPECIMEN Ordering Facility: [facility] Address: [address] [place] [id number] Performed By: #### 2 4323-8 #### [facility] CLIA [id number] [address] [place] [address] 61834 Bilirubin [Mass/Vol] 1.1 mg/dL Normal 0.2-1.3 [facility] Comment on above: Order Comment: Speci men Type: BLOOD SPECIMEN Ordering Facility: [facility] Address: [address] [place] [address] Performed By: #### 2 4323-8 #### [facility] CLIA [id number] [address] [place] [address] Calcium [Mass/Vol] 10.3 mg/dL High 8.5-10.2 [facility] Comment on above: Order Comment: Speci men Type: BLOOD SPECIMEN Ordering Facility: [facility] Address: [address] [place] [address] Performed By: #### 2 4323-8 #### [facility] CLIA [id number] [address] [place] [address] 97133 Chloride [Moles/Vol] 103 mmol/L Normal 97-105 [facility] Comment on above: Order Comment: Speci men Type: BLOOD SPECIMEN Ordering Facility: [facility] Address: [address] [place], [place] [address] Performed By: #### 2 4323-8 #### [facility] CLIA [id number] [address] [place] [address] CO2 [Moles/Vol] 28 mmol/L Normal 22-30 [facility] Comment on above: Order Comment: Speci men Type: BLOOD SPECIMEN Ordering Facility: [facility] Address: [address] [place] [address] Performed By: #### 2 4323-8 #### [facility] CLIA [id number] [address] [place] [address] 50969 Creatinine [Mass/Vol] 0.78 mg/dL Normal 0.58-0.96 [facility] Comment on above: Order Comment: Speci men Type: BLOOD SPECIMEN Ordering Facility: [facility] Address: [address] [place] [address] Performed By: #### 2 4323-8 #### [facility] CLIA [id number] [address] [place] [address] 82517 Creatinine and Glomerular filtration rate.predicted panel (S/P/Bld) 79 mL/min/1.73m??? Normal >=60 [facility] Comment on above: Order Comment: Speci men Type: BLOOD SPECIMEN Ordering Facility: [facility] Address: [address] [place] [address] Result Comment: Dara mated Glomerular Filtration Rate [...] GFR. Performed By: #### 2 4323-8 #### [facility] CLIA [id number] [address] [place] [address] Glucose [Mass/Vol] 85 mg/dL Normal 74-99 [facility] Comment on above: Order Comment: Vicky baron Type: BLOOD SPECIMEN Ordering Facility: [facility] Address: [address] [place] [address] Result Comment: The [place] [employer] (ADA) provides guidance for cutoff [...] Standards of Medical Care in Diabetes 2016, [place] [employer]. Diabetes Care. 2016.39(Suppl 1). Performed By: #### 2 4323-8 #### [facility] CLIA [id number] [address] [place] [address] Potassium [Moles/Vol] 4.8 mmol/L Normal 3.7-5.1 [facility] Comment on above: Order Comment: Vicky baron Type: BLOOD SPECIMEN Ordering Facility: [facility] Address: [address] [place] [address] Performed By: #### 2 4323-8 #### [facility] CLIA [id number] [address] [place] [address] 46509 Protein [Mass/Vol] 7.3 g/dL Normal 6.3-8.0 [facility] Comment on above: Order Comment: Yairi men Type: BLOOD SPECIMEN Ordering Facility: [facility] Address: [address] [place] [address] Performed By: #### 2 4323-8 #### [facility] CLIA [id number] [address] [place] [address] 99252 Sodium [Moles/Vol] 141 mmol/L Normal 136-144 [facility] Comment on above: Order Comment: Speci men Type: BLOOD SPECIMEN Ordering Facility: [facility] Address: [address] [place] [address] Performed By: #### 2 4323-8 #### [facility] CLIA [id number] [address] [place] [address] 56270 Urea nitrogen [Mass/Vol] 21 mg/dL Normal 7-21 [facility] Comment on above: Order Comment: Speci men Type: BLOOD SPECIMEN Ordering Facility: [facility] Address: [address] [place] [address] Performed By: #### 2 4323-8 #### [facility] CLIA [id number] [address] [place] [address] 95765 CBC W Auto Differential pane l (Bld)on 01-11-2023 Basophils (Bld) [#/Vol] 0.05 10*3/uL Normal <0.11 [facility] Comment on above: Order Comment: Speci men Type: BLOOD SPECIMEN Ordering Facility: [facility] Address: [address] [place] [address] Performed By: #### 5 7021-8 #### [facility] CLIA [id number] [address] [place] [address] 07469 Basophils/100 WBC (Bld) 0.7 % Normal [facility] Comment on above: Order Comment: Speci men Type: BLOOD SPECIMEN Ordering Facility: [facility] Address: [address] [place] [address] Performed By: #### 5 7021-8 #### [facility] CLIA [id number] [address] [place] [address] 13476 Differential cell count method Nom (Bld) Auto Normal [facility] Comment on above: Order Comment: Speci men Type: BLOOD SPECIMEN Ordering Facility: [facility] Address: [address] [place] [address] Performed By: #### 5 7021-8 #### [facility] CLIA [id number] [address] [place] [address] 25668 Eosinophils (Bld) [#/Vol] 0.50 10*3/uL High <0.46 [facility] Comment on above: Order Comment: Speci men Type: BLOOD SPECIMEN Ordering Facility: [facility] Address: [address] [place] [address] Performed By: #### 5 7021-8 #### [facility] CLIA [id number] [address] [place] [address] 36925 Eosinophils/100 WBC (Bld) 7.4 % Normal [facility] Comment on above: Order Comment: Speci men Type: BLOOD SPECIMEN Ordering Facility: [facility] Address: [address] [place] [place] [address] Performed By: #### 5 7021-8 #### [facility] CLIA [id number] [address] [place] [address] 75193 Erythrocyte distribution width (RBC) [Ratio] 12.8 % Normal 11.5-15.0 [facility] Comment on above: Order Comment: Speci men Type: BLOOD SPECIMEN Ordering Facility: [facility] Address: [address] [place] [address] Performed By: #### 5 7021-8 #### [facility] CLIA [id number] [address] [place] [address] 33907 Hematocrit (Bld) [Volume fraction] 36.8 % Normal 36.0-46.0 [facility] Comment on above: Order Comment: Speci men Type: BLOOD SPECIMEN Ordering Facility: [facility] Address: [address] [place] [address] Performed By: #### 5 7021-8 #### [facility] CLIA [id number] [address] [place] [address] 28635 Hemoglobin (Bld) [Mass/Vol] 12.1 g/dL Normal 11.5-15.5 [facility] Comment on above: Order Comment: Speci men Type: BLOOD SPECIMEN Ordering Facility: [facility] Address: [address] [place] [address] Performed By: #### 5 7021-8 #### [facility] CLIA [id number] [address] [place] [address] 95642 Immature granulocytes (Bld) [#/Vol] 10*3/uL Normal <0.10 [facility] Comment on above: Order Comment: Speci men Type: BLOOD SPECIMEN Ordering Facility: [facility] Address: [address] [place] [address] Performed By: #### 5 7021-8 #### [facility] CLIA [id number] [address] [place] [address] 10573 Immature granulocytes/100 WBC (Bld) 0.1 % Normal [facility] Comment on above: Order Comment: Speci men Type: BLOOD SPECIMEN Ordering Facility: [facility] Address: [address] [place] [address] Performed By: #### 5 7021-8 #### [facility] CLIA [id number] [address] [place] [address] 97605 Lymphocytes (Bld) [#/Vol] 1.84 10*3/uL Normal 1.00-4.00 [facility] Comment on above: Order Comment: Speci men Type: BLOOD SPECIMEN Ordering Facility: [facility] Address: [address] [place] [address] Performed By: #### 5 7021-8 #### [facility] CLIA [id number] [address] [place] [address] 23101 Lymphocytes/100 WBC (Bld) 27.3 % Normal [facility] Comment on above: Order Comment: Speci men Type: BLOOD SPECIMEN Ordering Facility: [facility] Address: [address] [place] [address] Performed By: #### 5 7021-8 #### [facility] CLIA [id number] [address] [place] [address] 34931 MCH (RBC) [Entitic mass] 28.7 pg Normal 26.0-34.0 [facility] Comment on above: Order Comment: Speci men Type: BLOOD SPECIMEN Ordering Facility: [facility] Address: [address] [place] [address] Performed By: #### 5 7021-8 #### [facility] CLIA [id number] [address] [place] [address] 39521 MCHC (RBC) [Mass/Vol] 32.9 g/dL Normal 30.5-36.0 [facility] Comment on above: Order Comment: Speci men Type: BLOOD SPECIMEN Ordering Facility: [facility] Address: [address] [place] [address] Performed By: #### 5 7021-8 #### [facility] CLIA [id number] [address] [place] [address] 76808 MCV (RBC) [Entitic vol] 87.4 fL Normal 80.0-100.0 [facility] Comment on above: Order Comment: Speci men Type: BLOOD SPECIMEN Ordering Facility: [facility] Address: [address] [place] [address] Performed By: #### 5 7021-8 #### [facility] CLIA [id number] [address] [place] [address] 57943 Monocytes (Bld) [#/Vol] 0.44 10*3/uL Normal <0.87 [facility] Comment on above: Order Comment: Speci men Type: BLOOD SPECIMEN Ordering Facility: [facility] Address: [address] [place] [address] Performed By: #### 5 7021-8 #### [facility] CLIA [id number] [address] [place] [address] 98217 Monocytes/100 WBC (Bld) 6.5 % Normal [facility] Comment on above: Order Comment: Speci men Type: BLOOD SPECIMEN Ordering Facility: [facility] Address: [address] [place] [address] Performed By: #### 5 7021-8 #### [facility] CLIA [id number] [address] [place] [address] 88507 Neutrophils (Bld) [#/Vol] 3.89 10*3/uL Normal 1.45-7.50 [facility] Comment on above: Order Comment: Speci men Type: BLOOD SPECIMEN Ordering Facility: [facility] Address: [address] [place] [address] Performed By: #### 5 7021-8 #### [facility] CLIA [id number] [address] [place] [address] 85125 Neutrophils/100 WBC (Bld) 58.0 % Normal [facility] Comment on above: Order Comment: Speci men Type: BLOOD SPECIMEN Ordering Facility: [facility] Address: [address] [place] [address] Performed By: #### 5 7021-8 #### [facility] CLIA [id number] [address] [place] [address] 96605 Nucleated RBC (Bld) [#/Vol] 10*3/uL Normal <0.01 [facility] Comment on above: Order Comment: Speci men Type: BLOOD SPECIMEN Ordering Facility: [facility] Address: [address] [place] [address] Performed By: #### 5 7021-8 #### [facility] CLIA [id number] [address] [place] [address] 85742 Nucleated RBC/100 WBC (Bld) [Ratio] 0.0 /100 WBC Normal [facility] Comment on above: Order Comment: Speci men Type: BLOOD SPECIMEN Ordering Facility: [facility] Address: [address] [place] [address] Performed By: #### 5 7021-8 #### [facility] CLIA [id number] [address] [place] [address] 55705 Platelet mean volume (Bld) [Entitic vol] 9.6 fL Normal 9.0-12.7 [facility] Comment on above: Order Comment: Speci men Type: BLOOD SPECIMEN Ordering Facility: [facility] Address: [address] [place] [address] Performed By: #### 5 7021-8 #### [facility] CLIA [id number] [address] [place] [address] 69648 Platelets (Bld) [#/Vol] 226 10*3/uL Normal 150-400 [facility] Comment on above: Order Comment: Speci men Type: BLOOD SPECIMEN Ordering Facility: [facility] Address: [address] [place] [address] Performed By: #### 5 7021-8 #### [facility] CLIA [id number] [address] [place] [address] 92742 RBC (Bld) [#/Vol] 4.21 10*6/uL Normal 3.90-5.20 [facility] Comment on above: Order Comment: Speci men Type: BLOOD SPECIMEN Ordering Facility: [facility] Address: [address] [place] [address] Performed By: #### 5 7021-8 #### [facility] CLIA [id number] [address] [place] [address] 31707 WBC (Bld) [#/Vol] 6.73 10*3/uL Normal 3.70-11.00 [facility] Comment on above: Order Comment: Speci men Type: BLOOD SPECIMEN Ordering Facility: [facility] Address: [address] [place] [address] Performed By: #### 5 7021-8 #### [facility] CLIA [id number] [address] [place] [address] 44004 CNOVSPon 01-11-2023 CNOVS Visit (SP) Office ([place]) -------- NATASHA RIBEIRO ([id number]) 1950 F Date Time Provider Department 01/11/23 2:00 PM ALLYSSA LOPEZ During your visit today, we recorded the following information about you: Temperature Pulse Respiration Blood pressure 97.7 degrees 75/minute 16/minute 125/59 Weight Height 73.8 kg 1.613 m Allyssa Lopez APRN.STRIPE MATCHER 01/11/2023 3:21 PM Signed PATIENT NAME: Natasha [...] ductal carcinoma, largest invasive component 0.8 cm. ER/MT positive, HER-2 negative, Oncotype recurrence score low [...] as return. Continue Vit D and Calcium qltg-qsw-llydojn. INTERIM HISTORY: Updated Visit, January 11, 2023: [...] that she would lose coverage here at [facility]. Lost her last August 2021 He [...] currently on arimidex. 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 This weighs heavily on her. Screening Mammography completed (more content not included)... Normal [facility] Comprehensive metabolic 2000 panelon 01-11-2023 Albumin [Mass/Vol] 4.4 g/dL Normal 3.9-4.9 [facility] Comment on above: Order Comment: Speci men Type: BLOOD SPECIMEN Order[facility] Facility[facility] Address: [address] [place] [address] Performed By: #### 2 4323-8 #### [facility] CLIA [id number] [address] [place] [address] 86214 ALP [Catalytic activity/Vol] 63 U/L Normal 34-123 [facility] Comment on above: Order Comment: Speci men Type: BLOOD SPECIMEN Ordering Facility[facility] Address: [address] [address] Performed By: #### 2 432-8 #### [facility] CLIA [id number] [address] [place] [address] 72567 ALT [Catalytic activity/Vol] 17 U/L Normal 7-38 [facility] Comment on above: Order Comment: Speci men Type: BLOOD SPECIMEN Ordering Facility: [facility] Address: [address] [place] [address] Performed By: #### 2 4323-8 #### [facility] CLIA [id number] [address] [place] [address] 27627 Anion gap [Moles/Vol] 9 mmol/L Normal 9-18 [facility] Comment on above: Order Comment: Speci men Type: BLOOD SPECIMEN Ordering Facility: [facility] Address: [address] [address] Performed By: #### 2 4323-8 #### [facility] CLIA [id number] [address] [place] [address] 07156 AST [Catalytic activity/Vol] 17 U/L Normal 13-35 [facility] Comment on above: Order Comment: Speci men Type: BLOOD SPECIMEN Ordering Facility: [facility] Address: [address] [address] Performed By: #### 2 4323-8 #### [facility] CLIA [id number] [address] [place] [address] 72303 Bilirubin [Mass/Vol] 1.0 mg/dL Normal 0.2-1.3 [facility] Comment on above: Order Comment: Speci men Type: BLOOD SPECIMEN Ordering Facility: [facility] Address: [address] [place] [address] Performed By: #### 2 4323-8 #### [facility] CLIA [id number] [address] [place] [address] 46270 Calcium [Mass/Vol] 9.8 mg/dL Normal 8.5-10.2 [facility] Comment on above: Order Comment: Speci men Type: BLOOD SPECIMEN Ordering Facility[facility] Address: [address] [place] [address] Performed By: #### 2 4323-8 #### [facility] CLIA [id number] [address] [place] [address] 88388 Chloride [Moles/Vol] 103 mmol/L Normal 97-105 [facility] Comment on above: Order Comment: Speci men Type: BLOOD SPECIMEN Ordering Facility: [facility] Address: [address] Performed By: #### 2 4323-8 #### [facility] CLIA [id number] [address] [place] [address] 89372 CO2 [Moles/Vol] 28 mmol/L Normal 22-30 [facility] Comment on above: Order Comment: Speci men Type: BLOOD SPECIMEN Ordering Facility: [facility] Address: [address] [address] Performed By: #### 2 4323-8 #### [facility] CLIA [id number] [address] [place] [address] 84098 Creatinine [Mass/Vol] 0.80 mg/dL Normal 0.58-0.96 [facility] Comment on above: Order Comment: Vicky baron Type: BLOOD SPECIMEN Ordering Facility: [facility] Address: [address] [address] Performed By: #### 2 4323-8 #### [facility] CLIA [id number] [address] [place] [address] 53264 Creatinine and Glomerular filtration rate.predicted panel (S/P/Bld) 77 mL/min/1.73m??? Normal >=60 [facility] Comment on above: Order Comment: Vicky baron Type: BLOOD SPECIMEN Ordering Facility: [facility] Address: [address] [address] Result Comment: Dara mated Glomerular Filtration Rate [...] GFR. Performed By: #### 2 4323-8 #### [facility] CLIA [id number] [address] [place] [address] 85651 Glucose [Mass/Vol] 104 mg/dL High 74-99 [facility] Comment on above: Order Comment: Vicky baron Type: BLOOD SPECIMEN Order[facility] Facility[facility] Address: [address] [address] Result Comment: The [place] [employer] (ADA) provides guidance for cutoff [...] Standards of Medical Care in Diabetes 2016, [place] [employer]. Diabetes Care. 2016.39(Suppl 1). Performed By: #### 2 4323-8 #### [facility] CLIA [id number] [address] [place] [address] 61397 Potassium [Moles/Vol] 4.3 mmol/L Normal 3.7-5.1 [facility] Comment on above: Order Comment: Speci men Type: BLOOD SPECIMEN Ordering Facility: [facility] Address: [address] [place] [address] Performed By: #### 2 4323-8 #### [facility] CLIA [id number] [address] [place] [address] 56934 Protein [Mass/Vol] 6.7 g/dL Normal 6.3-8.0 [facility] Comment on above: Order Comment: Speci men Type: BLOOD SPECIMEN Ordering Facility: [facility] Address: [address] [place] [address] Performed By: #### 2 4323-8 #### [facility] CLIA [id number] [address] [place] [address] 61646 Sodium [Moles/Vol] 140 mmol/L Normal 136-144 [facility] Comment on above: Order Comment: Speci men Type: BLOOD SPECIMEN Order[facility] Facility: [facility] Address: [address] [address] Performed By: #### 2 4323-8 #### [facility] CLIA [id number] [address] [place] [address] 50845 Urea nitrogen [Mass/Vol] 18 mg/dL Normal 7-21 [facility] Comment on above: Order Comment: Speci men Type: BLOOD SPECIMEN Ordering Facility: [facility] Address: [address] [place] [address] Performed By: #### 2 4323-8 #### [facility] [id number] [address] [place] [address] 78669 CNOVSPon 07-20-2022 CNOVSP Visit (SP) Office ([place]) -------- NATASHA RIBEIRO ([id number]) 1950 F Date Time Provider Department 07/20/22 [...] ductal carcinoma, largest invasive component 0.8 cm. ER/MT positive, HER-2 negative, Oncotype recurrence score low [...] that she would lose coverage here at [facility]. Lost her last August 2021 He [...] currently on arimidex. 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 Normal [facility] MG MAMM LUIS M DIAG W CADon MG MAMM LUIS M DIAG W CAD Patient: NU RIBEIRO Exam Date: 07/03/2022 : 1950 Gender:F Ordering : DR ALLYSSA LOPEZ [facility] Admission #: [id number] Family : Order #: [id number] CLICK HERE TO VIEW EXAM RADIOLOGY REPORT [...] Treatments None Family Cancers None LOCATION: [facility] BREAST COMPOSITION: Scattered areas fibroglandular density. FINDINGS: [...] Nixon M.D. on 07/03/2022 at 15:24 Normal [facility] COVID/FLU/RSV RT-PCRon 05-30 SARS-CoV-2 (COVID-19) RNA DARIUS+probe Ql (Unsp spec) Negative [facility] Other COVID/FLU/RSV RT-PCR [facility] Other HEMOGLOBINon 02-20-2022 Hemoglobin (Bld) [Mass/Vol] 12.8 g/dL Normal 12.0-16.0 [facility] Comment on above: Performed By: #### H GB #### [facility] [address] [place] [address] Dr. Vinicius Seran XR FOOT LT MIN 3 VIEWSon XR [...] by: KIM PHELAN Date: 2022-01-28 17:15 Normal [facility] Coding Summaryon 03-30-2021 Coding Summary HTMLBase 64 YefqjwwkUKa7kEb+PGhlYWQ+ BX3KBDKdK25pgAMzxE0PQ5vY PN7PRONHDSIQFH1HHB0zqSS5 RImqH8TdurZl OxfsiFMqFS17XZv7ZAU0sWov TVcyuL0gbWOjT5y9OgXyDJ11 rY59SBucFBWyEwW1JhUtupgs bWFy O5rrYgKirXAbGgq+PHRhYmxl IHdpZHRoPScxMDAlJyBzdHls PP3hWt5zGALdYVNbhGsqsAYf OiBj f6pgSRXrRFeaER2tkUgxD7Fj pZQ3SRZqd9r9Kc42jAS+PHRk XPV5bCbyLYbvb725JyKgd0yy IDM3 bKNxLJgwBFY9O31yo9S0JSPb EJZfOJF9xVH3jZ1caZvryxzu S7DbsKOkRhT6AOA1gPExvE4r bGln ybszxN1jCyi+U57LWO5GZQTF BJ3GLzi9Y6UhPdxbxJG+PC90 GIUoDZ50mBPmhSVak0vhtUn2 JzEw GZQwHOG9jHdxDBmqb3WoEMOo B19nnFMce2Q7VWCpiKskoFTm NgTsdUS7dU8oIPhxpaevy9ti dzsn Dkagb3uyok28tX22P24qYCod WMUbVPE5FZEvSBJqjDzysr1c eS7aSz0+CPuvv3xyv6lduZk3 IjIw PBBydpCueEjzKUI2h8YtIg01 Q5JlvCpbt1PaGyi1gd68qSZr t6G1cSG4HJnqFBAbyS1xAVbg ZnQ6 LGGmBxGnoO61mVCiCLmdAn2z mPifqGqtVJ2aWUEbkogvGVCn uH1hUEBlmAUvpHxyLL2cTFAw bjtm v174YrNiKRW1KFNbvONaK7Hv xR1gZdZqBQWfNFUdH9ApqAFt SRvzH660IJhcBnQ7STYlisCp Y2Fs ACOaaKquZlT2l7H8Cp1Nx2Fo bdwuDDH2PMvgSLIyEsS7WkXt JxA6J6SyCgj9WSMgbOniOC2c J3Bh IIAqpbgvtvwqaDH0VOOmVKQq bS73aKPzLErzRu0fb8C3r106 BPKpAFKakH89Kx8teGrjTZSt dCBU zL9skhtgf5szzlfrUtApUELf ZSq5LKv4IXNloNdkNrCcBLC5 NgT3ZPG2iYKjzK1vlTbadrkp dG9w Oyc+Z70opS8wCIP5YLN9jlcc UJNlduArGI18NU60D0BoTnku dGFibGU+MRScpxDfnNdaQR2y YmFj a4nao6UaUQtiH9QmWITsUHer Okj8OHCwDWY1pFA5oA3gBXJe KDpud0N0eKA9O2QdthZlqt3j b2xs RRRgTZovD72cnOQuv0M2EPRy sKQ9WLAcgQqdWqLkzN99Ktf+ WVEubRcte7SeCxvka8dim1ri dGg9 RjEwEPRkbzMntGphTLQ1g8Oo Vb81V54eZMcyIAVmTXFxGXTx LXZcuTvdja6rcV7uCr6+PGNv bCB3 pBK7rE9gUAEoGnC9DYrpU186 MgPthVCiMjyvj7zla0hbjAm3 DbZsIVYsxcTjcWjtUVH4c3Uo Lz48 E10aHOorIEWcVQSlBFYnUQGp bArhxe5oeW9nIs2+SM3im9zi qp40kH92wNC+CZMbNUR6nQdn PSdw UGCjdT5zHHtwKaS5ROZhJbJx zM42vUGhTFhwCe5zaHeycPfr WM4bFKFdixhgh155LgRjn8vh IDEw hXFfJHnbOLA4Q39ct3I0YGFy KACtGGF7sZV8bK8snKgdwnxw bGVmdDsgdmVydGljYWwtYWxp Z246 IHRvcDsnPlBhdGllbnQgTmFt WZt5W5AoLuz1TAGnuLwtYY5t aBTqJQqpPx6buZsjgJvpLN7l NTBp fajej653OiBeu6oaXWUqpNNb RGjuSZH6G81ci6F8UEHrCJXf OGC6sYC9iZ4oyGfkbbfalIDc dDsg gpGlwKieABabBOnfY675PUPt jVnnEpMhhhVqQLLumLU2MP19 GA34jZDxk9Z9mMA7L4YqFERn bmct qwwfhSM1OWUsIHTmjK29Xh0d wWyxCx7bDKHdKRC3YJGtbIEb A5KcnE8qJhZrOXUjZANtP5Tq eHQt LDfvL832XPiwGsS0EKZhexDn M7WvWCTndZniHyW0c0S4Ut2H V8M1GM32CS73cMTje3N6lOC7 J3Bh KWCzmmnekjcmeRZ1ZSNkLLXd cU55Se5csPwrBa7lURWkHAQ0 OVFalMFeS6OmgC0yJqJwFWPc MDAw M9SplYHjUNpdY529IWkkHiM7 MTEvpkItX8OtQVGhfHciFiN2 m4F8Sm6TWLy6FM94PM80jHFd c3R5 wHR9I1GeUWWfoltbpqwljRG4 TDRtQBXedX95Nr2fsOlfFw5y YNBfIVO1NCZhvGTlH8EhmN9q OiAj JUHkTIVuY2OefWIxBAskF382 KSapQmY5FILpxfQxH0LlQRYc cIymTkV3p9X4Yu0QYOSqWT11 IFR5 kXT0YP21WA23Q6DxJvmajOKk bGU+PHRhYmxlIHdpZHRoPScx EYVrAlLwdYoeCH7kRw3yHOJs LWNv fTsvkKYfVbOoy3xuSVRzXChc CE4meMdyU0XezZG7YRPft9f1 Hq55B84rQ3QpoVX+PGNvbCB3 aWR0 hU2jYuAlLpE2HBdvX926BmJz hXLhXhxvd7qin6nrcSn2JzM1 CFJimvNfmSfeONF4s5JiWt82 Y29s IHdpZHRoPSIxNSUiIHZhbGln mx8rmM9tVb4+EQKfoYZ9mWK3 rT5kFwUpKvH0YYhaR723XyQi cCIv Hqvtd4lyx2wxePu9EyUpYLRo kgHrnKecBEW0i4NvVa17I5Ac lXynl5ZlIly6ix75uVBky7R6 bGU9 Z9McUKJxbkfskLShcKagII0m UBYlbjxoDGOssY5oPCElT5t3 BrMsLnA2HEvrX5DyzcM0PMZg cHQg ICxtEDX9M77ik8H3GMZmUEYu JQI8cRJ7hM1jiYzuxvkiqSEh rWpfgeUnqQoeRDooEXtsR436 IHRv iBkzGZAbwJ9dSSYykLPtdEeb ED6oKQXlgpexXinWRoSJZUXL OYVNAURCWD1WIHXVLL40TK37 dGQg n1G6kTL3Z8OvAQIixgehtpnf rJL7DAVzDPKcvO82gEYsDXrn Bm2nu2I2z386KTWaEQKypF26 Zm9u qLpsNUQfvURDvR0rqbuca9vv ezdxGqAjUKNbAJh7LSb2MVRu cSgmDoRuKRW8OzY6JBV7mYZf bC1h bEciezzlnU3mFdv+MTAvMTIv FRz5ZAruaGT+XFNkGUG9aFmn WZnxZERkzL6aNTAyX2m9CqLd LjA1 OOrkR8LpSSVklxukGt94kG0q OuPrCdE1KWjlR0MnlaT4OXBn yRLlGSdbFAR0Q36yf8X5KBHn MDAw XUV1rVU2wG9ngJdidytclRFa aTlqxqPvmYubFJviDVsxD542 FFXurDtxPogjKPdxVVUrAO10 ZD48 vIQdp3T4jEF9V5WzRVDdmxrq eabarWK8GOOaWOZarF60iWRd NXqfLo0ok0X8p201BUXnFPEn aW47 Uk8qaMyxRBCmbCNOqM9uospg g6vaczufXzBjPRZgOLs3RLh5 HBNefPwmAwEnMML7ShU6DHL4 aWNh hD0rbAorecghfX4bDcr+RkVN PLaDVI07IQ11eANrl7U2nIG8 E0EzULJnugmfukskeQQ7MIIa MDUw jV32oJPwQChqGi2dv9H0x480 UULaFKXraF99Qg3zaOamZMOx qHDKxX9mebrqn8jmzwdxQiKj MDAw JFv1CIl9RZJilTamHdTeYSB3 PdQ3JTI0rGVsgT0szZiqkmzh rK2iFzl+SP9hinrsxrP3JJ07 ZD48 Z2FxKstkmWUfdQD+PHRhYmxl IHdpZHRoPScxMDAlJyBzdHls PF7gKa5rOOJhHHLrzNjlvQHg OiBj u2qfQROcZDvyKZ4iuKqbX8Ip bZK0AVIlp3o3Ip90D58wB8Ok dXA+LPVvvOR0eNC5aT8lHdGg IiB2 UEimR914GdZcjJDoEiwwb9et u6gddKk2DpCpBTWohgAuzTod LDC3a0OoFf48V19yFTpgRJXw PSIy THYfTCEyrSuoxm4peH3uGl8+ IORsdXQ2qHY1bD2iQrBkMiR7 PUlyQ688PvNknQAuYxqbW06t Z3Jv dXA+ZMCeGms1IEIpwIxbGU9u cJDoHNbkXp2qKZV4SgGaVkOx AFenN8UsKFZovppmlsobfXU3 IDAu IPJkjE48Xn6qxSrzQj1qUKQl BEX6ZNCepXKgF8TptN8hIgMw SZTzGWHzG3JaeZUgMHjuI842 IGxl QpF5QSMouwGsA5GvQZPdeZsh LjA6q4W5Vn8QkKtnlJPzTH9q TdVxUPm5V7XuUzs9VUCorWqg ZT0n eCJvOIjzAx0cmNbggXzeFK1h CYIqrmsbl775LaYpy2beLAYj jJFvTAcaGLQ5C20bp1G1QDFf MDAw EYU6oEZ4sA6hiWxeiyerqLPt dNbylnIgmYerTIngUTmsH232 YWKcjArpCxRETxm8D5DlSeq3 ZCBz vLcnTT6yzAAnEJmpYh2rfUmk pBwsXJ1pQLRtwwxir236IxBz t1tiCULubVXrFAryRED4K66z b3I6 THZjMOZjYYJ9kKG3qD0mqAog bjogbGVmdDsgdmVydGljYWwt QOonG914PWCryUfsZf6BCdt2 L3Rk Gos3IKXywXwrUJ0ciGYyOGsp Kg5cjUdjzWrrJJ9qYWYuquqb a259JqPgg0zxDGJkpEEyPFjl ZXM7 S27kv5P7IYGiFTKgKVU1gUN4 rN6vzXvumubfaJRgyCzilhZt fHjuSQvzGJdtX954OBRawOhs PlBh eWVyOjwvdGQ+UK49wx20K9Xz PvodByy9TYOoRCT4tGY1oA2r FRTxYPdnc2H9yNW0R5PajmMw ci1j b2x (more content not included)... [facility] Coding Summary HTMLBase 64 FdhqyqaoQGn6cHk+PGhlYWQ+ MR1ESTSmW28aqPAiwX7FF6cH IW8XULVRWTXBPE3OEP8jrGQ4 RJenJ7YsrlFd GfbivEEqSX05OIw8GGR9tKfm CRygzM5duMPrE7u7PdAqXP68 jR94HZisHUTqIxO4JdIlohwj bWFy J3qtXdBbkEHkTvd+PHRhYmxl IHdpZHRoPScxMDAlJyBzdHls MB1qOr2tVKUvCPIqlOsoyFMa OiBj a6iwYFZaTUryEP7yjTzdA6Yr aGI0EISnt8m2Ed45hCI+PHRk LIR9qBlwGDgcb908TwCta0rw IDM3 kEQcIVgbLSV4B77ee3U3ZXXe TPKjHHG4lNQ8mA1vxTocfiep G7HbaWTlChS9KLQ8cLOiwF6s bGln tvozbA1tSwi+Q13GEW9LCJOW MG4VUck0V8LcRnwcoYH+PC90 ZVNjRZ45iXEyaIRwa1octSp2 JzEw COFiTHS4qQkqVFdqz1UqAUKg R57hbYZij9U4JEEhtXvadOEa RvLzdPE0cH9cIJkayyjbv2th dzsn Qdunh6rnmg08xQ11V75tTTzz WDDeHEE4WXCaACZrxHxhri7l fF7rEc8+KRnjj5vez9itfTm3 IjIw UUHtdfPnjSslYQB9t0VoUx10 J6NjiPmwe7UfWvy8uz47sRTm q3X3bRA5EIkoFUEdtC1qYZgg ZnQ6 CAYwRdKwtP61tVLtKNnoLe2o zWwagVfmFD4zJZRdpaikCSKg nV0mJZFjwDFpzIbsBQ9pFASc bjtm o663ZlSrHUG0TZNihAZoI7Un tC3lIbMzSWGvEETtO8SxzHWq DCuaI298NZdfBzX7WNFpdjJo Y2Fs JSUdiZrtWsK1e4W9Vc4Js3Xn djgfQYT9ZFmdZFPvWlJ7LuWe TiF1N4LvUss3WLCjhAndWW5w J3Bh IQBdvifoqmlhpAH9NNRyHVEq fV41bULkJUmoBv4kl6S3c847 HJDdQXPmrC13Bv1dxGqeRYGo dCBU iM7wsslqc1xxghnxCqNyXEBg XOs8CPa3AMOyxPozIvMzJKD9 UzM6XCW2aPGlhU7zrIlhswuj dG9w Oyc+E49xfH4fNUU2JNQ0wlkn IKNhtuHxOR53OV90E2HqHbqo dGFibGU+BULtweUkuHbbZQ3r YmFj z2pnf8QuWLmzU9ShNFLwMIre Xwy9DCWmXBM2uSR9vU0vEKCc WPphf6H0sJC5E0LpewFxih3e b2xs TNAoDDkpY43tgVPnx2Y8RLQj iWP6ZLWuzKwvAkTaaI79Tna+ IREhoVruc9CeTcnty6fhh0et dGg9 YiJqKFVpplChuMtqNWH1p0Wf Ls91I66zTDfrVOWeNSMvVJLg XXXflKzrio4pbJ9dGf5+PGNv bCB3 lGW7hY9xBYWsQsM3APexQ064 CrJamIKwUifxg1zts2pbtPk4 SpQuCDXotxLgvHidKCG2p9Dj Lz48 A26oMKykWTRfQRAuUQIpDWNr zWjyld9ncH9sFu3+UH3ma0hr ut37gZ73wQI+TSXnRUO2lQbi PSdw APUymK1bEFxiUhX7FKDcHjGd iG30pBBwEVcuLq9llZrlaIpe ZG4tVHNjqtret059KiMbq3nh IDEw lNDoKXgoXRI3O57wh1F9BZAi IDWbANK8dBF1tQ0spGcjnalh bGVmdDsgdmVydGljYWwtYWxp Z246 IHRvcDsnPlBhdGllbnQgTmFt KEd5V0WrFye3DWRcbHymZZ2t aMBaPZyuFz2wiGtdlQvaTS0n NTBp kijlh890VaUhg1qsVKQtqNLj ENsnEVE6C39xo0Z6RGVfUENl DHH9yDI5kQ1rwKcqjwbtiWYs dDsg teIpoIbtKEnwEHrxI257NEMj aMokYiOwidFvZJAvdFH7ZR00 UW40wDTif9D4eNV3U8QoRMQg bmct sreggIZ2YKQpBJSkhN94Ku8r aMncSm4qZSXwHBU9QYJxeNQo E1YjpU9rBsBlZKBlNZVhX7Sn eHQt QSzuA763MWjqYrC3GWXdedKb W8YmWXSyuRgcNdK6x2B1Ke5I P3V8UV86OY94sRFsm8G3qAT5 J3Bh RPMcahmrxajsbKK8XYKaVWIj nO47Ld5qsAhpEj9oJUYgAZJ2 UAAtpPRiE0VzwD6wVoJnELId MDAw H4GgmWEzFAvsG180IPtgNaY7 AJLmizNaS5YvVRJfmCtxQzZ5 w2E0Cs0ODLn9VK09JR18hAOu c3R5 yCE4A6IdTZFjjmmxqvwydDX3 YUVhFLVhwM31Zv1tzUswOv1k WWXkMIE4CIHjlIXuH3KseD4h OiAj ANWmOTVtU5JrgIGzNEsrJ009 KTvlXvL3SHPfoyHcD5WxGDPc zBcnDuN5q6P8Ti6ZUWLkHL28 IFR5 uFB3GJ74UK21C6ZtVcbkiGNo bGU+PHRhYmxlIHdpZHRoPScx TYLpIsQrkGyeOL3lIu4hULZq LWNv tHgquUSsNoOpi3onDMHuFAkb JD5ftDhzF1UziXM3OROrl7h3 Fn99J49kM1TxpUI+PGNvbCB3 aWR0 fM6vJxBmYzK1FSsfW211VvUj kCAdIzivm4rqs9byyIl4OiR5 UNGjewIwtUwsDUE7y1UxVa44 Y29s IHdpZHRoPSIxNSUiIHZhbGln vc3znK8dNu7+OGBmhFT1mPK2 cB6lAqFtFkR6VCueI884EhUv cCIv Udwlm5gfk5jxyLw9OtMkRVGx vaMltJnsBIR7y4DxCk33C9Xt mIzbc6CgFus2ym93vXXdy3T8 bGU9 P1TyVZGpzytbcKJrlGubMR4a EGTdgrdiRXYxwI7fELLiH9g0 EfKgHmM3VYwyL1TfykR2VSNt cHQg ZVzmIGE4Z63ij7Q5QKRlXYPg MEG7tNY9tQ6nlFosckkiyOWj iKxhsuGviTsgGKyjSGlbF941 IHRv mRapAKBgdX4mDWZosFUpqPzn NV4iUXTdnuigRpvTSsMXFSBL OTSPAXTFZH6DDEUXHV56KA10 dGQg i4S2jYC4M0KlONSkyjfdbiph wJH8IBUkSWDozQ37uGEwVYoa Tk6ar0R0h386RHOoIAYmjA06 Zm9u pUjqISYiiESNwI9hlvvql6ji mxzpAtUbPDPuXTw8QLs6VRJf tRskOdUlPBP1SnN2CGS3jUJj bC1h mAybpibzcR5cMld+MTAvMTIv EUg2LUzcmLQ+HOSvNFH0oMwi SXmmSAXqxU8gBSCtL3c8EwSf LjA1 PLypZ1QyMTBviusgMm12nS1f EbLzCxT6IIiiC9IxliP3XCFw rJZjPBwbHPB9N78ck2D5ROGj MDAw ZQN4uFI8zC4ioTwmgtiiqNHr vPznlzKtsBizYVagGGktG118 MBDvqZzpDumlWBrjSZXfED08 ZD48 eWZxu0Y5eFG1H8YdGQDhvflc tjmaoZP6VUIxPCBzkI05bRJj IIpuKu1de1X3l212BQXbCJKw aW47 Sn8mpYhbHZBbcJTXgK1gflzk z5qxcjzxYqEnOEQjOZg5LUm7 MWFqlRziFgNwZWC0UhZ5GSI0 aWNh jN1iwTpwacwqmS1hLgp+RkVN YMvBCR56XL01xPTgs9L0iEC7 Q5BgDIWxekjpqfbwoGA0YMMt MDUw pX78zBDyAXkbPp7rm1Y4i705 GJObWMCmcA44Ug9pwFmuBIOj zDZCxN9sdverx2cbfnwtKpFo MDAw DZx8RQe0RNUkhBucUdBhJKY1 MiY3IPI2iVNyqJ8nnCpgevbc sL4kBri+GX4rxrpmfqE2QX32 ZD48 V7PdLclksZTswQN+PHRhYmxl IHdpZHRoPScxMDAlJyBzdHls LP4qKq8dATWlAAMsuUgszZWn OiBj n6arARDjIOapOA7mnNafP9Vr eRB8NHLyj5y0Hc52T26eS0He dXA+MKWjqIO6zON4nK1aYoPb IiB2 LIfrE786UbEtzPZlDbwzv6sc n7bcsXw0NtVsRCUagiQosTdr KYZ1v0VbLx19U13eMPpkCGZx PSIy GHCmPYWvnZkiau3jhS3fAx6+ HGVqiLQ8zAF6jA4vVlPpIfK8 IQjhR522YwIhqJEoBrbbW23i Z3Jv dXA+PJJeBnh0PUAmzAfeCQ2d oBZtRBpuHz9dCHK1OlSnWyOe TDprB9JnRGHhbevyhrbhaND1 IDAu HVRcdB28Dg6kuXvjCj1oRCKk HGI9BFSsoTKzW1VofY9iThNk KABbTIXqU9OsjACeMSdlF984 IGxl PcT2MWWxdxNoC8XlHEMykSqo QrL6z6O6Eu5FaEgwlEDyRV1m NfRoSPr4D5OzSep6PGBebSxb ZT0n cDJiKMwwMu6ycIkpvJycQB3u RNBtrxapg475FfGlz2gnRYVb jAOmRHfrONM1C27ig2D7FVKs MDAw JMV2nMG7lS5vlGtdaullqPRn tLfiwuEoeExbJHhrWDfhH064 TPTqsQrmCkISVqw3A3ZuYln8 ZCBz pTheNR2ycUZoPVfeCx2inYua lKvzYV8zSBTgtxdap286VsEz r0jxCJThzSFgKNnsYPL1T41y b3I6 DTZsQMPhLLQ2jMK1vJ2ewFvr bjogbGVmdDsgdmVydGljYWwt VBuaU455SKIejAhtBy6PVoi4 L3Rk Gux7EXEzrPoyOL1ceMGjLIlw Do9rqQkglBvpQP5vUDPwkgfx h959FsOma0baSERgtCTuBIyl ZXM7 W11if1H8GMFsJWDsUBN5wEG7 eL1drJyvzkeeaWQknOdrwbNz zNwtHKqcSOrrF357KDHnaOfd PlBh eWVyOjwvdGQ+FR80vz19I3Kk FjnwLde3CYWdXBK5dIV7zC5k AVMlZSbiw6Z9nGA8X4NvfiZh ci1j b2x (more content not included)... [facility] Coding Summary HTMLBase 64 AfnjbyfbUGq2oVh+PGhlYWQ+ XK0BEXWhL08qoMAwaS1EY9vD WP4RYKNWKYDOSO0UJU7ddWP5 PFauO2JvihOv LzfyhCOjHE38AAd2BDT9yLal VNtyoB4liNLwA9o9JeNcIF97 fK05BXkuAJSsOqP7VyOxwklm bWFy D2zmIdSusQHoBax+PHRhYmxl IHdpZHRoPScxMDAlJyBzdHls JW5yYv9xSGTjDNAtxWqccJLm OiBj u9ndKDNbNVeyGA5jdRjyI6As gUB8DWJcd8v1Uo78zDY+PHRk WSU6gVaeYLjhz702YcZbh2ui IDM3 aYOmDNyvESY1U98ne9P1YWYm LSSpPHD2jJX0eL0sfTedrdyz K5VdcSIhCwR5PNQ4tYEnxB3d bGln hreysH3mDdb+Z23MLO4WZYDU LY3KMqm2O4FgQytjtEM+PC90 MPYjAQ36kTTsnRYih3zyrPh9 JzEw YQEdZHH7lVllETcye7UxESAc E14wuOMvq8J4JGAunIgadVOg YlDqsDV5gO2zAVqpifwzj8wl dzsn Gwzbd9xhtb63fB15X23lQZjl JVXxHMP2PRMqQIKujTwejs7h bP8kDf8+XKzws7qxl5kwyQb5 IjIw JXLxcyZjcXubFZE6o8GmNk74 K4HauUbwk6YcWcd8tg61mVNa q4T6tKL0QKdnBTDszI8cNRzm ZnQ6 SCGyGwXgyZ97mCEoATcwZj8r lHfwwMbdUS7yFQRcrjpaQBZj yY7eAGJkuLRutAryJS0dHOJs bjtm d943KrMsAVW3QQZwoALyF1Nu sB9rNqJcAJHcMMZpB1HrfSVf FZoqQ572XPgaEhN1TMZtfsLp Y2Fs EVIcdFlvCkN1n4B8Wl6If2Wo ndmqLUK6VRwhCAIvSmW8IpXu WoI5Z3RtBcx6ZKVknQkqGF2l J3Bh EJKnxruydqchcVO2DYAhVDHd cS75yXZqANncJs5zl6X0b995 SQRnEMPvfX74Pg3cdAjwRMJt dCBU nP8rvzwci6qvbzhaMiTqBIWk GTe0JZa9SUDajDzpOmWaGGD7 DkF8IGZ9hKPcpC8kjMlvoysb dG9w Oyc+F68bhA4bSHF5ILF0cvzs LZVhxyPqDT96YG66H9QnNdph dGFibGU+KMYxbqAytNcvRZ1f YmFj w8prt6VlRHjpN8OgXEWaRWeh Shw0SVDxZKB6kAF8pK6eXFDa TRewl2U7qHZ3A0ZzhsHxhj3j b2xs HCZjXXtkP62psFTix9W0ZKQr cIY7TSBzvEsrJvWuyH26Bkh+ DCLptYjwh2OiYbwom4gsa8gx dGg9 OdRyWMErrvWfnUkcATX7p1Qu Fx23U06oMVhvFLIyJECeWXZv ZKMgmYyblr3bbZ8gMn0+PGNv bCB3 mHI4wL4cCNFpSmH9BIcbC905 AiIqeERfHnmux7rkj6atoHv3 NzJzSBXgocNnbOwpVML4i7Yd Lz48 V64eROdrAZJjGPYtUJGjDDLy bZwzop3lfM4nNa1+VS9ts8gb lm27wK18pTA+USFvJZY6nMte PSdw FVNgcA8dXWhjKsX6CWOoDaPh fE41nOXcMYpvOr7udUkdwWwt JZ1sXZNgefryn186VoPlx0yy IDEw gATbZVoeJLS7M36zo6N1KABi ZUWgXTX0vXE6bF9kbSsgvysk bGVmdDsgdmVydGljYWwtYWxp Z246 IHRvcDsnPlBhdGllbnQgTmFt NRc1N9CgOqz9ULVfaSkqDA2e hBSdLPixOu7scTubbYeiYO5l NTBp zlwle512VsYtu6vsFGJmvFDv BHwdMKH9P83le3H5NGDkAPYn OAC8oIN6wH4ffVctwulzzENp dDsg faKtxNsrFOsqKNtxA866RBCh qXesTnUesvToMPMzoOR6FQ74 OD73aZXoe2E4vMO6G8PyXDHk bmct jbzapKY6KTJnJMFabA35Qj3o yWrsHl5jUWWaJUV7BBTbgEHn B1DypZ3rEoFrDEAfMZOxX1Sj eHQt HJttT328IBrgOyO7LWFdkbQz X3CxFWMbpRotCiB4h5J2Ow0D G9Z8TT09LZ72zZRss2U8nNW8 J3Bh JWKxawawsbggrDT3DEWjQELm qR67Wk9xmMtiMt3uYXTfZNE8 PHScoVPeN5FxbX5gArTdTBXj MDAw Q9TuyIPvKRdfS961GIkcKgT1 JVBoscXpZ6TfVWAtxDsvQeO9 b5J4Mm9LHMa2IV14KG54iWRj c3R5 aAV8B9GqITXpnnrtfpykaCU0 QQSeFRRlvN93Ll8haSayPd7k NPHxPXU5QUIgdREyD1DhoV0e OiAj ANVxQYSfC4SmsWLeCVesN673 DNsfHgF6AHVtkrQnG5StWYMb pRwaDxE4h9H9Rm1IFIZiPU83 IFR5 aLN5SF41IZ02G2NkWxrxzWHe bGU+PHRhYmxlIHdpZHRoPScx BZQbRvAnaEnyMT6oFs4gPPAl LWNv mTpvwXGoDmWyx0qcWAPvHTjs DD6mxIiuW3QbkWW7YVIvj2x4 Fm59M42xZ6OdzIT+PGNvbCB3 aWR0 gE1oQhLwWhI4TEweP329XbZx fTLvDtzbn2csz3bjrIq9VtJ6 AAVprrKnrMhcUOA9s9YiPf63 Y29s IHdpZHRoPSIxNSUiIHZhbGln wc2sbF5gSv5+BYJbyWJ0sWC6 sY5eKnQwRnD4EDbkQ570VeMk cCIv Ydwru8trf3zdwRq9UdQzTXMw vjUriTbnWFT6b1RiPh44D8Nf fNmxn8HzBqq6yu87yHHar1W7 bGU9 O0QfYGAoplrzkCYsiPlvVE9k EGSzjtypMWPokT9gIEQkC1k2 DwFjWaN6ZKvgO9TjykW5INUw cHQg UOjsNWK4B85oh1E8SSQcZQUr PUD1rGE9qF5dgYuzgzyajRQu pZndwiIxsAxdVGxhCDakR570 IHRv eGmbVPOcuC7uVTGcnLKqpAby OG5yTPKmevgkCxbKLqDAURQU HJHCWQFLMJ8KHQESRH50UT87 dGQg g1A0rIJ2V8QoEDUuktqssobp zYJ4EOKrHZPtbH19aJOpZSiz Av7ln4V7b065RKXnENLxtY26 Zm9u gVzyTKJktFOXrE6bkohdu9tz rimsQzMxRJXaRLm2ZGt4HYNl sQfvXmEdZXO4VfG2HHA1sYXr bC1h hIznehyudK3mAjb+MTAvMTIv UIz6RFjfkWD+OCEjNJR5oSns PEjbDKBmvH0rYQJkS4q2YoOm LjA1 FXgsK7CvLXQjvfhkKp74mJ9u VdIcRcQ7JRclA3SzylX3UGSl kNIhQNywORA2U93kc6O5ORBx MDAw AHW3kKV5cS3wrEqqkwpnzYOo uWrjdiNgdCokEYvlCKmzD541 VMEzgKnbAwrnUTgqROSbQQ23 ZD48 iYCnp9E1yYS2Z3DcIRCwzebd lmlleMN0TTNxPISrsK36jUJx OSgtDu2si8B9o824IDEtGGSz aW47 Vj0baWiyTITtlLZFgD7fzhbg e5ccqchyFuDbFDCuBIp1HFe2 FTMpwZjzKiDcSGT6AaB3GHJ0 aWNh wD1aaLwdittwnL7bOqc+RkVN UVyRPO12OK12vXIgl8H3jPD4 D7IzKPVeisddlumyzSS1IKWn MDUw aU13mHOjAPwdXo3pi9H6i537 LKZqJHHaqY76Vr4ssNneBKEc wJGTwK2qgtzkg9cjqjqnCtDf MDAw QMv9PZy8IVRwbBfyHfQlJUC1 GwQ9NLZ0jHIzyV4avMrpnstl jT9nGnn+EG3xjxrfqzS1CA69 ZD48 O4DqCrjikRWxnLX+PHRhYmxl IHdpZHRoPScxMDAlJyBzdHls IQ1oMr9yOPXjLTTplQkbxAVb OiBj y6rcQUNhOYalWM9ckZapD5So rDM2ZJCug9l7Os28V50iP8Ct dXA+CBSqtPL8wIG6uU3oCzKm IiB2 LLfjM969QrSpeWSzXzlps0ox s4xezEi6TiKqJYOpneHbvYvn OAQ6q3ZxMj97E59fGTleTGCw PSIy KDGbYNCikTzcpw9zbL2bNk9+ TKFogJC4aOS4jM9pSdBsAnY2 BIfoO679RxLzyYEkXkdhD10a Z3Jv dXA+NVErSqs1KWJxrMwrZW1i tCAeVPpdOf9qOCE4BgGzYiMy VEvgO0HxZOXhybnwlzmthSA1 IDAu VJZgmV59Lg4lpAkzBm1jOIJn GWV4JFAaoQRmE1JvhV3tGsCh KEVhLJQdM0WqjISxEPyyA193 IGxl YwI3EPRxxoNtB8GkPHJzjGvs UaD2i7G6Zk7WvKjhnAGcTB6d WbFdAJa4N3InVbl0SHWfkIye ZT0n kIUsQJxfKc4pfLfyhJwgUE2u FPCpelrvc484DxFez7ulXNDj pCVpLLcbECQ2I64he4C8HKVo MDAw FMD6xGX6yM1hbVieuqkciWRk zZviywKaxObzJOmuAKjdN341 YHSwqYrbJcGMEmd9B9XxBae0 ZCBz gQmzEB9olDBrBBxfRc5btJkb pIwxSO0xDVQptatzy583QxPr b8evKOEzbKLsYRihLZI5Q51a b3I6 FIEtNJZfABF5lZO6wQ4dpHqq bjogbGVmdDsgdmVydGljYWwt EKyhB160NHTlkWzmZz2LJrc8 L3Rk Qds5FUIygMofNF7ioFLqSZor Jy1ekZsblAgrDM7lOMKdjvcs s057KoKcb8hqZNJrgIPzYPvc ZXM7 W15hh5L3WCPnKFXoQWV0iPJ8 cU7miTsyzltmoIZytRvsvtOi jGpaEJbuMKdrT816KUWmdSis PlBh eWVyOjwvdGQ+NP75qh55A3Kd JssqBhl8NACiBHZ5tIM7nK5v TJLbRTxcc8X5zIR7G0NpwqBj ci1j b2x (more content not included)... [facility] CT PE Chest w/ Contraston CT [...] Scot Kaba MD 03/21/21 11:01 p Technologist: [facility] Consent Formson 03-22-2021 Consent Forms [id number] TIFF Normal [facility] ED Clinical Summaryon 2020 ED Clinical Summary [facility] - Emergency Department [address] [place], [place] [id number] ED Clinical Summary PERSON INFORMATION Name: NU RIBEIRO Age: 71 Years Sex: FEMALE : 1950 MRN: Acct#: Visit Reason: Shortness of breath; SOB Arrival: 03/21/2021 19:58:39 Discharge: 03/21/2021 23:34:00 LOS: 000 03:36 Check In: 03/21/2021 19:58:39 Checkout:03/21/2021 23:34:00 Address: [address] [place] [id number] PCP: Laz Portillo MD PROVIDER INFORMATION Provider [...] Well-ap (more content not included)... Normal [facility] ED Patient Summaryon 021 ED Patient Summary [facility] - Emergency Department [address] [place] [address] PATIENT DISCHARGE INSTRUCTIONS Patient Information Name: NU RIBEIRO Age: 71 Years Date of : 1950 Reason For Visit: Shortness of breath; SOB Arrival Time: 03/21/2021 19:58:39 Primary Care Physician: Laz Portillo MD Attending Physician: Marisol Leigh D.O. Comment: Visit Diagnosis: Diagnoses This Visit Asthma exacerbation (J45.901) Shortness of breath ([id number] -[id number]) Prescription Information: If you have been given a prescription for narcotics, seek immediate medical attention if you have any difficulty breathing or any sudden status changes such as confusion and sleepiness. If you or anyone you know is experiencing suicidal thoughts, mental health, alcohol and/or drug addiction problems; contact the [facility] 03/12 Crisis Hotline -Text 4HSLI pe [phone]. If you received any narcotics, sedation, or [...] With: Address: When: Laz Portillo [address] [place] [address] Business (1) Within 3 to 5 days Medication Information: The exam and treatment you received today in the [facility] Emergency Department were for an urgent problem and are not intended as complete care. It is important for you to follow up with a doctor, nurse practitioner, or physician?s assistant front end manager for ongoing care. If your symptoms become [...] we can reach you if necessary. [facility] Emergency Department has provided you with a complete list of medications post discharge. Please inform your primary counselor/provider of your visit and for further instruction on these medications. Any specific questions regarding your chronic medications and dosages should be discussed with your primary care physician(s) and/or pharmacist. New Medications [facility] [facility], [address], [place] [id number], [phone] albuterol (Albuterol (Eqv-ProAir HFA) 90 mcg/inh inhalation [...] these instructions at home: Medicines ? Take khlt-qby-fuiaeii and prescription medicines only as told by your doctor. ? If you need to use an inhaler or nebulize (more content not included)... Normal [facility] Lactic Acidon 03-22-2021 Lactic Acid 11.7 mg/dL Normal 4.5-19.8 [facility] Comment on above: Performed By: #### 2 [id number] ####[facility] (DEFAULT)[address] [place] [address] .Auto Diff 103-21-2021 Auto Hudson % 8 % Normal 05-24 [facility] Comment on above: Performed By: #### 5 [id number], [id number], [id number], [id number], [id number] ####[facility] (DEFAULT)[address] [place] [address] Baso Abs# 0.0 x10 Normal 0.0-0.2 [facility] Comment on above: Performed By: #### 5 [id number], [id number], [id number], 6858481, 5846923 ####[facility] (DEFAULT)[address] [place] [address]236 Basophils/100 WBC (Bld) 0.4 % Normal 0.2-2.0 [facility] Comment on above: Performed By: #### 5 [id number], [id number], [id number], 5523767, 6561186 ####[facility] (DEFAULT)[address] [place] [address] 22059 Eos Abs# 0.5 x10 High 0.0-0.4 [facility] Comment on above: Performed By: #### 5 [id number], [id number], [id number], 0429194, 5830283 ####[facility] (DEFAULT)[address] [place] [address] 76308 Eosinophils/100 WBC (Bld) 7.0 % High 0.9-4.0 [facility] Comment on above: Performed By: #### 5 [id number], [id number], [id number], 0425316, 7946449 ####[facility] (DEFAULT)[address] [place] [address] 05139 Lymph Abs# 2.3 x10 Normal 1.3-2.9 [facility] Comment on above: Performed By: #### 5 [id number], [id number], [id number], 2879918, 7750285 ####[facility] (DEFAULT)[address] [place] [address] 33675 Lymphocytes/100 WBC (Bld) 31 % Normal 14-48 [facility] Comment on above: Performed By: #### 5 [id number], [id number], [id number], 5332438, 5575022 ####[facility] (DEFAULT)[address] [place] [address]7619 Hudson Abs# 0.6 x10 Normal 0.0-0.8 [facility] Comment on above: Performed By: #### 5 [id number], 93930168, [id number], 3177118, 7004421 ####[facility] (DEFAULT)[address] [place] [address] Neut Abs# 4.0 x10 Normal 1.5-9.2 [facility] Comment on above: Performed By: #### 5 [id number], [id number], [id number], 1365420, 2283638 ####[facility] (DEFAULT)[address] [place] [address] Neutrophils/100 WBC (Bld) 54 % Normal 44-88 [facility] Comment on above: Performed By: #### 5 [id number], [id number], 2368637347, 9074330, 3504239 ####[facility] (DEFAULT)[address] [place] [address] CBC w/ Auto Diffon Erythrocyte distribution width (RBC) [Ratio] 13.0 % Normal 11.5-15.0 [facility] Comment on above: Performed By: #### 5 [id number], 56233625, [id number], 9554947, 1895642 #### [facility] (DEFAULT) [address] [place] [address] Hematocrit (Bld) [Volume fraction] 38.1 % Normal 33.7-40.4 [facility] Comment on above: Performed By: #### 5 [id number], 05723058, [id number], 9413348, 2329799 #### [facility] (DEFAULT) [address] [place] [address] Hemoglobin (Bld) [Mass/Vol] 12.6 g/dL Normal 11.3-15.9 [facility] Comment on above: Performed By: #### 5 [id number], 80519734, [id number], 0084672, 9354476 #### [facility] (DEFAULT) [address] [place] [address] Instr WBC 7.5 x10 Invalid Interpretation Code [facility] Comment on above: Performed By: #### 5 [id number], [id number], [id number], 8122862, 5259598 #### [facility] (DEFAULT) [address] [place] [address] Man Diff? Auto Normal [facility] Comment on above: Performed By: #### 5 [id number], 22429902, [id number], 7633092, 8265745 #### [facility] (DEFAULT) [address] [place] [address] 13903 MCH (RBC) [Entitic mass] 29 pg Normal 24-34 [facility] Comment on above: Performed By: #### 5 [id number], 25025223, 4206100427, 3632706, 8225286 #### [facility] (DEFAULT) [address] [place] [address] MCHC (RBC) [Mass/Vol] 33 g/dL Normal 26-37 [facility] Comment on above: Performed By: #### 5 [id number], 86549929, [id number], 1991048, 6151331 #### [facility] (DEFAULT) [address] [place] [address] 34376 MCV (RBC) [Entitic vol] 88 fL Normal 81-100 [facility] Comment on above: Performed By: #### 5 [id number], 41531189, 9350011866, 3441592, 7849042 #### [facility] (DEFAULT) [address] [place] [address] 69257 Platelet 225 x10 Normal 138-427 [facility] Comment on above: Performed By: #### 5 [id number], 77006978, 2809715094, 3633042, 9161658 #### [facility] (DEFAULT) [address] [place] [address] 20419 Platelet mean volume (Bld) [Entitic vol] 9.6 fL Normal 6.3-10.2 [facility] Comment on above: Performed By: #### 5 [id number], 64552416, 8167810021, 0096941, 2009158 #### [facility] (DEFAULT) [address] [place] [address] 66925 RBC 4.34 x10 Normal 3.70-5.30 [facility] Comment on above: Performed By: #### 5 [id number], 11245060, 5760286220, 2219926, 4607464 #### [facility] (DEFAULT) [address] [place] [address]58 WBC 7.5 x10 Normal 3.5-10.5 [facility] Comment on above: Performed By: #### 5 [id number], 51263361, 6637141568, 0041597, 3683338 #### [facility] (DEFAULT) [address] [place] [address]014 CMP Standardon 03-21-2021 eGFR Non AA >60 Invalid Interpretation Code [facility] Comment on above: Performed By: #### 5 [id number], 42861456, 3256133230, 0241055, 8241093 ####[facility] (DEFAULT)[address] [place] [address] 77752 eGFR AA >60 Invalid Interpretation Code [facility] Comment on above: Result Comment: Equipment Service Engineer feliz Kidney disease could be indicated at eGFRs of less than 60 ml/min/1.73m2. Kidney Failure is indicated at less than 15 ml/min/1.73m2 Performed By: #### 5 [id number], 55533087, 7390009492, 6522080, 5679602 ####[facility] (DEFAULT)[address] [place] [address] 01984 Albumin [Mass/Vol] 4.0 g/dL Normal 3.5-5.0 [facility] Comment on above: Performed By: #### 5 [id number], 23604315, 6657174633, 2036578, 4838663 ####[facility] (DEFAULT)[address] [place] [address] 02564 Albumin/Globulin [Mass ratio] 1.4 {ratio} Normal 1.4-2.6 [facility] Comment on above: Performed By: #### 5 [id number], 39378449, 6813727105, 3159708, 5688407 ####[facility] (DEFAULT)[address] [place] [address] 13996 Alk Phos 59 IU/L Normal 32-91 [facility] Comment on above: Performed By: #### 5 [id number], 65398005, 3740543668, 9769720, 2459609 ####[facility] (DEFAULT)[address] [place] [address] 74000 ALT [Catalytic activity/Vol] 15.0 U/L Normal 14.0-54.0 [facility] Comment on above: Performed By: #### 5 [id number], 33181014, 9843515271, 6229012, 8579381 ####[facility] (DEFAULT)[address] [place] [address] 13011 Anion gap [Moles/Vol] 11.0 mmol/L Normal 5.0-19.0 [facility] Comment on above: Performed By: #### 5 [id number], 95087276, 5453143791, 2038607, 7397424 ####[facility] (DEFAULT)[address] [place] [address] 51235 AST [Catalytic activity/Vol] 19 U/L Normal 15-41 [facility] Comment on above: Performed By: #### 5 [id number], 35973698, 9229532969, 1416817, 1596846 ####[facility] (DEFAULT)[address] [place] [address] 49873 Bili Total 0.8 mg/dL Normal 0.3-1.2 [facility] Comment on above: Performed By: #### 5 [id number], 22174705, 1807728910, 3457817, 2516431 ####[facility] (DEFAULT)[address] [place] [address] [address] Calcium [Mass/Vol] 9.5 mg/dL Normal 8.9-10.3 [facility] Comment on above: Performed By: #### 5 [id number], [id number], [id number], [id number] ####[facility] (DEFAULT)[address] [place] [address] 10027 Chloride [Moles/Vol] 105 mmol/L Normal 101-111 [facility] Comment on above: Performed By: #### 5 [id number], [id number], [id number], [id number] ####[facility] (DEFAULT)[address] [place] [address] 16944 CO2 [Moles/Vol] 29 mmol/L Normal 21-32 [facility] Comment on above: Performed By: #### 5 [id number], [id number], [id number], [id number], [id number] ####[facility] (DEFAULT)[address] [place] [address] 40808 Creatinine [Mass/Vol] 0.70 mg/dL Normal 0.60-1.30 [facility] Comment on above: Performed By: #### 5 [id number], [id number], [id number], [id number], [id number] ####[facility] (DEFAULT)[address] [place] [address] 85181 Globulin (S) [Mass/Vol] 2.9 g/dL Normal 1.5-4.3 [facility] Comment on above: Performed By: #### 5 [id number], [id number], [id number], [id number], [id number] ####[facility] (DEFAULT)[address] [place] [address] 18658 Glucose [Mass/Vol] 87.0 mg/dL Normal 74.0-118.0 [facility] Comment on above: Performed By: #### 5 [id number], [id number], [id number], [id number], [id number] ####[facility] (DEFAULT)[address] [place] [address] 06059 Osmolality 283 mOsm/L Invalid Interpretation Code [facility] Comment on above: Performed By: #### 5 [id number], [id number], [id number], [id number], [id number] ####[facility] (DEFAULT)[address] [place] [address] 14556 Potassium [Moles/Vol] 3.8 mmol/L Normal 3.6-5.1 [facility] Comment on above: Performed By: #### 5 [id number], [id number], [id number], [id number], [id number] ####[facility] (DEFAULT)[address] [place] [address] 93637 Protein [Mass/Vol] 6.9 g/dL Normal 6.5-8.1 [facility] Comment on above: Performed By: #### 5 [id number], [id number], [id number], [id number], 9943263 ####[facility] (DEFAULT)[address] [place] [address] 09838 Sodium [Moles/Vol] 141.0 mmol/L Normal 136.0-144.0 [facility] Comment on above: Performed By: #### 5 [id number], [id number], [id number], 8958699, [id number] ####[facility] (DEFAULT)[address] [place] [address] 62147 Urea nitrogen [Mass/Vol] 19 mg/dL Normal 8-26 [facility] Comment on above: Performed By: #### 5 [id number], [id number], [id number], [id number], [id number] ####[facility] (DEFAULT)[address] [place] [address] 57219 Urea nitrogen/Creatinine [Mass ratio] 27.0 mg/mg High 4.6-16.2 [facility] Comment on above: Performed By: #### 5 [id number], [id number], [id number], [id number], [id number] ####[facility] (DEFAULT)[address] [place] [address] 14620 D-Dimeron 03-21-2021 D-Dimer 0.51 mg/L FEU [facility] 0.19-0.50 [facility] Comment on above: Result Comment: Resu lts Called To [facility] By HEATHER And Read Back For Confirmation On 03/21/2021 [...] Liver cirrhosis ? Performed By: #### 5 [id number], [id number], [id number], [id number], [id number] ####[facility] (DEFAULT)[address] [id number] ED Note - Physicianon 2020 ED Note [...] SARS-CoV-2 (COVID-19) PCR (more content not included)... [facility] ED Note-Nursingon 03-21-2021 ED Note-Nursing Pt states she feels better, less short of breath. Pt is currently resting on cart awaiting CT PE study. [facility] ED Note-Nursing Pt arrives to ED [...] at this time. Pt resting on cart. [facility] TnI HSon 03-21-2021 Troponin I High Sensitivity 3 pg/mL Normal <=15 [facility] Comment on above: Result Comment: Male Baseline Delta 1Hr (Note pg/mL=ng/L) <20pg/mL 50-60% >20pg/mL 20% Female Baseline Delta 1Hr <15pg/mL 50-60% >15pg/mL 20% Other Baseline Delta 1Hr <18ng/mL 50-60% >18ng/mL 20% ([place] [employer] Guidelines December 2017) Performed By: #### 5 [id number], [id number], [id number], [id number], [id number] ####[facility] (DEFAULT)[address] [place] [address] XR Chest 1 View Frontalon XR Chest [...] Phelan 03/21/21 11:22 p Technologist: Fred LAUGHLIN [facility] FolateOrdered By: Raul Swan on 11-29-2020 Folate 8.9 ng/mL >4.8 [employer] Work Phone: No Panel InformationOrdered By: Raul Swan on 11-29-2020 [employer] Work Phone: Vitamin [id number] By: Raul Swan on 11-29-2020 Cobalamin (Vitamin B12) [Mass/Vol] 753 pg/mL 232 - 1245 pg/mL [employer] Work Phone: CBC Auto DifferentialOrdered By: Laz Portillo on 09-20-2020 Absolute Eos # 0.40 [employer] [facility] Work Phone: Absolute Immature Granulocyte NOT REPORTED [employer] Work Phone: Absolute Lymph # 1.60 [employer] [facility] Work Phone: Absolute Hudson # 0.30 [employer] [facility] Work Phone: Basophils (Bld) [#/Vol] 0.10 10*3/uL [employer] Work Phone: Basophils/100 WBC (Bld) 1 % 0 - 2 % [employer] Work Phone: Differential Type NOT REPORTED [employer] Work Phone: Eosinophils/100 WBC (Bld) 5 % High 0 - 4 % [employer] Phone: Hematocrit (Bld) [Volume fraction] 38.0 % 36 - 46 % [employer] Phone: Hemoglobin.gastrointe stinal spec 1 Ql (Stl) 12.1 g/dL 12.0 - 16.0 g/dL [employer] Phone: Immature Granulocytes NOT REPORTED 0 % [employer] Work Phone: Interpretation and review of laboratory results Abnormal [employer] Phone: Lymphocytes/100 WBC (Bld) 25 % 24 - 44 % [employer] Phone: MCH (RBC) [Entitic mass] 29.5 pg 26 - 34 pg [employer] Phone: MCHC (RBC) [Mass/Vol] 31.8 g/dL 31 - 3 7 g/dL [employer] Phone: MCV (RBC) [Entitic vol] 92.8 fL 80 - 100 fL [employer] Phone: Monocytes/100 WBC (Bld) 5 % 1 - 7 % [employer] Phone: NRBC Automated NOT REPORTED per 100 WBC Snaps [employer] Work Phone: Platelet distribution width (Bld) [Ratio] 14.1 % 11.5 - 14.9 % [employer] Phone: Platelet Estimate NOT REPORTED [employer] Phone: Platelet mean volume (Bld) [Entitic vol] 8.3 fL 6.0 - 12.0 fL [employer] Phone: Platelets (Bld) [#/Vol] 147 10*3/uL Low [employer] Phone: RBC (Bld) [#/Vol] 4.09 10*6/uL 4.0 - 5.2 m/uL [employer] Phone: RBC (Bld) [#/Vol] NOT REPORTED [employer] Phone: Segmented neutrophils/100 WBC (Bld) 64 % 36 - 66 % [employer] Work Phone: Segs Absolute 4.20 20[employer] Work Phone: WBC (Bld) [#/Vol] 6.6 10*3/uL [employer] Work Phone: WBC (Bld) [#/Vol] NOT REPORTED [employer] Work Phone: Comprehensive Metabolic Pane lOrdered By: Laz Portillo on 09-20-2020 Albumin [Mass/Vol] 4.1 g/dL 3.5 - 5.2 g/dL [employer] Phone: Albumin/Globulin Ratio NOT REPORTED [employer] Phone: ALP (Bld) [Catalytic activity/Vol] 48 U/L 35 - 104 U/L [employer] Phone: ALT [Catalytic activity/Vol] 17 U/L 5 - 33 U/L [employer] Work Phone: Anion gap [Moles/Vol] 10 mmol/L 9 - 17 mmol/L [employer] Phone: AST [Catalytic activity/Vol] 25 U/L <32 [employer] Phone: Comment on above: SPECIMEN MODERATELY HEMOLYZED, RESULTS MAY BE ADVERSELY AFFECTED Bilirubin [Mass/Vol] 0.68 mg/dL 0.3 - 1 .2 mg/dL [employer] Phone: Calcium [Mass/Vol] 9.5 mg/dL 8.6 - 10. 4 mg/dL [employer] Phone: Chloride [Moles/Vol] 105 mmol/L 98 - 10 7 mmol/L [employer] Phone: CO2 [Moles/Vol] 24 mmol/L 20 - 31 mmol/L [employer] Phone: Creatinine [Mass/Vol] 0.6 mg/dL 0.50 - 0.90 mg/dL [employer] Phone: Free PSA/Total PSA [Mass fraction] 6.9 g/dL 6.4 - 8.3 g/dL [employer] Phone: GFR >60 >60 mL/min [employer] Phone: GFR Non- >60 >60 mL/min [employer] Phone: GFR/1.73 sq M.predicted MDRD (S/P/Bld) [Vol rate/Area] [employer] Phone: Comment on above: Average GFR for 70 o r more years old: 75 mL/min/1.73sq m Chronic Kidney Disease: <60 mL/min/1.73sq m Kidney failure: <15 mL/min/1.73sq m eGFR calculated using average adult body mass. Additional eGFR calculator available at: http://www.Ramen/multiple_crcl_2012.htm GFR/1.73 sq M.predicted MDRD (S/P/Bld) [Vol rate/Area] NOT REPORTED [employer] Phone: Glucose [Mass/Vol] 97 mg/dL 70 - 99 mg/dL [employer] Phone: Potassium [Moles/Vol] 5.6 mmol/L High 3.7 - 5.3 mmol/L [employer] Phone: Comment on above: SPECIMEN MODERATELY HEMOLYZED, RESULTS MAY BE ADVERSELY AFFECTED Sodium [Moles/Vol] 139 mmol/L 135 - 144 mmol/L [employer] Phone: Urea nitrogen (BldV) [Mass/Vol] 18 mg/dL 8 - 23 mg/dL [employer] Phone: Urea nitrogen/Creatinine (Bld) [Mass ratio] NOT REPORTED [employer] Work Phone: ECHO Complete 2D W Doppler W ColorOrdered By: Laz Portillo on 09-20-2020 [facility] Transthoracic Echocardiography Report (TTE) Patient Name QUINTIN Date of Study 09/20/2020 NU Ibarra Date of 1950 Gender Female Age 70 year(s) Race Room Number Height: 64.96 inch, 165 cm Corporate ID [id number] Weight: 160 pounds, 72.6 kg # Patient Acct [id number] BSA: 1.8 m^2 BMI: 26.66 kg/m^2 # MR # [id number] Wagon Driver Salesperson GingerDionneElaine Interpreting Osmar Pryor Physician Fellow Referring Nurse Practitioner Interpreting Referring Physician LAZ PORTILLO, SUNG Fellow JANNETH* Type of Study TTE procedure:2D Echocardiogram, M-Mode, Doppler, Color Doppler. Procedure Date Date: 09/20/2020 Start: 07:43 AM Study Location: [facility] Technical Quality: Fair visualization Indications:Syncope. History [...] velocity:0.07 m/s Lateral Wall E' velocity:0.10 m/s [facility] Work Phone: Tao, pn Incoming Cardio Results From [facility]/Ge - 09/20/2020 10:17 AM EDT [facility] Transthoracic Echocardiography Report (TTE) Patient Name QUINTIN Date of Study 09/20/2020 [facility] Date of 1950 Gender Female Age 70 year(s) Race Room Number Height: 64.96 inch, 165 cm Corporate ID [id number] Weight: 160 pounds, 72.6 kg # Patient Acct [id number] BSA: 1.8 m^2 BMI: 26.66 kg/m^2 # MR # [id number] Wagon Driver Salesperson Elaine Miles Interpreting Osmar Pryor Physician Fellow Referring Nurse Practitioner Interpreting Referring Physician SUNG AGUAYO* Type of Study TTE procedure:2D Echocardiogram, M-Mode, Doppler, Color Doppler. Procedure Date Date: 09/20/2020 Start: 07:43 AM Study Location: [facility] Technical Quality: Fair visualization Indications:Syncope. History [...] velocity:0.07 m/s Lateral Wall E' velocity:0.10 m/s [employer] Phone: Lipid PanelOrdered By: Iker Portillo on 09-20-2020 Cholesterol [Mass/Vol] 219 mg/dL High <200 [employer] Phone: Comment on above: Cholesterol Guidelines: <200 Desirable 200-240 Borderline >240 Undesirable Cholesterol in HDL [Mass/Vol] 61 mg/dL >40 [employer] Phone: Comment on above: HDL Guidelines: <40 Undesirable 40-59 Borderline >59 Desirable Cholesterol in LDL [Mass/Vol] 129 mg/dL 0 - 130 mg/dL [employer] Phone: Comment on above: LDL Guidelines: <100 Desirable 100-129 Near to/above Desirable 130-159 Borderline >159 Undesirable Direct (measured) LDL and calculated LDL are not interchangeable tests. Cholesterol in VLDL [Mass/Vol] NOT REPORTED 1 - 30 mg/dL [employer] Phone: Cholesterol.total/Cho lesterol in HDL [Mass ratio] 3.6 {ratio} <5 [employer] Phone: Triglyceride [Mass/Vol] 145 mg/dL <150 [employer] Phone: Comment on above: Triglyceride Guidelines: <150 Desirable 150-199 Borderline 200-499 High >499 Very high Based on AHA Guidelines for fasting triglyceride, February 2012. No Panel InformationOrdered By: Laz Portillo on 09-20-2020 Interpretation and review of laboratory results Abnormal [employer] Phone: TSH without ReflexOrdered By : Laz Portillo on 09-20-2020 TSH Qn 1.84 m[IU]/L [employer] Phone: VL Upper Extremity Venous Du plex LeftOrdered By: Laz Portillo on 09-20-2020 Tao, autumn Incoming Cardio Results From [facility]/Ge - 09/20/2020 11:37 PM EDT [facility] Vascular Upper Extremities Veins Procedure Patient Name QUINTIN Date of Study 09/20/2020 NU Ibarra Date of 1950 Gender Female Age 70 year(s) Race Room Number Corporate ID # [id number] Patient MR # [id number] Wagon Driver Salesperson Roberto Henning Interpreting Physician Dread Hameed Referring Referring Physician Lindsey Nesbitt Nurse Practitioner Procedure Type of Study: [...] ! ! + --+ --+ --- + [employer] Work Phone: Coding Summaryon 08-24-2020 Coding Summary HTMLBase 64 SpusdyvlMSh0lTn+PGhlYWQ+ OT0MGNZsY21gdZHzhD0JW8wW DX9UFJMKHJLSCH0LFP5qzBL8 QAwhU7AhzpTf WmufkWYzDI80DTj1GIH0jGkf SMfteH8nhKZnO5z3ZnWhXJ93 pL66CCfjNQUzMiY1DwFewhxq bWFy E0xzOeWkfCEjRfw+PHRhYmxl IHdpZHRoPScxMDAlJyBzdHls OA8rJy0yQIGiHGUeeUpgeENe B s4rfQHFbZKgyKZ8xvKmcA0Zg lMH4EEIhb1n9Cs50jBC+PHRk JJE7oPbiPXlyr891HwEus3xw IDM3 nOEmBOcpGVW0P33vc7A9NBZb ONLpTOZ3eJA2dP0cjYeqqzwz T7AlsVWwGeB0WIX7tQAvwV5j bGln kyyumG2gZxh+J89UXT4JYYDK PD2XEiq4X6GgGyepaUX+PC90 IEFdIJ35uZMvaGPsz6wxgXn3 JzEw SISrGWS7lZdoJVyik7NlBLWa V95uzLRsl6R1EIDkuKcndWCz VhKsxST1wF3uLInshghlx3sv dzsn Klmnr0iwaa15dD98A90vETfn GTWlERY6WBXjSZCihRoadv3k yF2jDx4+PSgbk0qrs4lunEo4 IjIw NPAtfsLgeThoZXI3b0SyWq19 F9FgmWjce0KeVhn3fq97xXUt h4H6aTY8CQsvRFTgtV2pIBiz ZnQ6 HEIyWtQlnR49cZCiURrlXn2p gNkqqMwzGR4qNZWdwfamDCMr bR8wDMPxbVSdtHesRS3mVSPf bjtm a394OgIvSMN7VLQkfRQoN5Eb kV4qNoCdVCJrNYBoB4LtvJVv KBpgV663XPpiIdP1KIAjbwMl Y2Fs SUAicVucTcY6o6M2Ce6Hz8Lw pvtlINV2XXmnIUH8TtN5UwOw YfH6I5LfYih8CNMszFghRN0b J3Bh TVBrcjtivzrynSG5GUSvRVVq cR23kVWoMBdvVf6by1F8p602 RPMdNXVtmG76Sj1ugChuEVWe dCBU aM2psyauf4ulyidiLsDxIXPp QSb2MJl6FIZjyJkcDuEzHUD0 SnT6PBX9kXPniJ8gtXjxjnpg dG9w Oyc+S33vuQ6rUFI7WIP7mrpz VLQmpcNoAM34LL93R3PjTert dGFibGU+OUKoxlZhjTwrLH7d YmFj a6god0JdUYimS5UdRZIqHCgi Amw1YKXiYBW4oBF8hA8mSUKd LAshm2Z6xYX6U3KsyzAbyl9u b2xs XVAzBUovN30xdJVct1L1FXCv zVP6DHPjnFokXmFbsY46Cfh+ JINdkRviq1PkCmfdl2ajr1wz dGg9 IbWdGQMvfyCrpBasEUL1o2Oj Er79R78oTXkcCSBhCIHnDOCc QZFnaSuexe2dxN8iHt3+PGNv bCB3 fKH9hN5vPKEfGfD7FVdzC509 FnCgkDAiCeqtc6qoh3ctpZz0 UgVsAPQrriEtfGdwPEG7o1Dz Lz48 A58fJOwwGRTaUXJrGWMlAFWh hAnhrr1jkY9vVj7+FV9dt0qb zu55tF89mXC+OXEgSKX1fHik PSdw PFCnqX7bXHipNjL4BGEaUqBq rO09mFUkKOncTh6wkLgbwXbc QU3aHUEpmbesu016KxMlm8ql IDEw oFDyIGpbCEI7B20ds7B2BFRi RRPsUXZ2jEK2eJ2reCktyugu bGVmdDsgdmVydGljYWwtYWxp Z246 IHRvcDsnPlBhdGllbnQgTmFt GTe9J9ThNid4TBFkgUjvSR1w qYFfANpbDn3qeXsiyJnoCH0n NTBp ffocd458LqZda1vcTFDlzZQk MVclLQG2O95kr1O7ZQDzQGJs NJY7pRY8yK1ceJowpcenjUWi dDsg acWgvNgaGMbrGFulC717SPKn lKtcDyIwuyJlXVGbtNJ6ZH17 PW58lZZpo4X5nTS5S2SlGGBc bmct jhtdvCZ7MAAxNVJgoL83Io1f iFasHv8pCCSxIXD6KDTnbWGy J4CybU0kFjRiONMyGADkX3Mi eHQt MIyiL256GAbgYhU2IKPirtWs N0AuCVDwrBldHzO0q4C2Hj7Z J8K3II71GF16oAOed8C5wKZ5 J3Bh XXAuliijwyagbYT4WNDwSURh rK47Va5fwOvlEd0cPPEcOZD6 AUUhvGHkF7HkoZ5jWiNyLCRe MDAw Z2XguBWeUWbzA755SNvtRlI7 RYQgauWkE6CqWIAlsGcnNsF0 q6G8Zh0COYa5LR38QF90pXDb c3R5 wXT3B8YkCRRudvjtdfywrFS7 PHKqCAMtzD42Ak6afCrtJc4c FSXsIUC6JWOzmSPpU8WnfV1o OiAj ZYMgHSGpV8XbzYPlQBneD418 GVowPhA6WFBjuzSkB9PbZEBc kSaqXjL2l6H1Qr8LZZGjSD87 IFR5 lLP1JA30IO50X7FiFoldrWXc bGU+PHRhYmxlIHdpZHRoPScx VLOkKyNvwPqjDK5kGe6jNGKw LWNv zObesNRsDaJnm0fxWTCeVKcj KQ7kfHtzZ9HbwAT2IPUuo8j6 Ia38O06xF5XdgBY+PGNvbCB3 aWR0 rN6iGqXxNjT9WKpdH122EvVt kRDvHhljq1cec2rkeZp4LsK8 QARmpkPpfZwlJLH9s2KfIb15 Y29s IHdpZHRoPSIxNSUiIHZhbGln nb2uaR6gIr8+PXPryRI0aMA3 qY7eDdUnSnP8AAlvK935YeMa cCIv Oxznu4uqe9hyzNw8SgSdGFXa exCcrYgiOZS0z4PaFr09Z2Ol tInvw0ElYcy9al11jKEhk1V0 bGU9 W3EhPVOylksbvOFqiCcgYN3l BCDbyryoZQOnbT8kBAWwE8l3 OtZfSmR6RQcxC2IjyqK1AQWg cHQg QIxxSRI5J56zl0U1XRXuIWIx KZV6lYA4zG2qgOqixcltmSAe jQzlskVrjKugXHyrSJaaZ259 IHRv hDgrDXAicJ1wQTWdyVUatHud PV5wYPOpqmorBovAUuTRNWIZ QTJRJZJTEZ2IXTIRDS65PT37 dGQg d6H9mGA9L7HbHCQylvurijxh tIC1WFUuIMXylM07fEDvFZjz Et3qr8E0a520EHTfHAFhbG73 Zm9u nIwnWBUifRJCpA5xljyqo4xu hpfyLoNmXYQqNYs4UVf5NNBv aDknZsOtPDY4AfD9TRA7mXYd bC1h vEfwmlgfnR7rJjh+MTAvMTIv BAp4JJtkuTE+NKWsJJW0nCzd APwsOEDtdJ9zJPRvT7i1ZpRp LjA1 SSllE0NyPEEnxaaoKi55cX2v ImFpHfJ8ZGkwE1ZdgmK8SHDh yXGoDQhlGKO1G63uf5G0WUSp MDAw TDV4bOO2gE0uyGvptyjumSEq jGlnycDvcWfhVEylVXkbF073 WULnrQdwEwenCEudRCOcWN17 ZD48 gWXtj8T3uUU3I7UuIPYzdfli tjanqVY4DODzQNFpfY39gKRw YHxdSp2gf0M7d780SKLeMZWq aW47 Cj4qoZpaTVBcgXHEwD2gwott d3owcehkPaEyHYEjHUx1DBy7 JWPrlHdsSrVhJTP8ZbW1TEM2 aWNh cS4crUlyyenwpV8nZsd+RkVN KNpBHG67BV99lOTgd1R3aJA7 J3QjRXIaizhyxenauGJ0TCGl MDUw aJ93oZFlSGnuOv4wf6F8q898 HBUyHFXmrY09Uv5uqMkqGSCg vOBKwA2icucjz1gacciuMuAc MDAw BZk3YFq5XNSrwEahEpBeIPU0 AuK5JWK3aQLvzU0juMvrcrpw bF6qMwi+AlHymFVqcN0gUV82 dHBh eGrkhhK2P3KdNysvqSZ+PC90 PFBvJO06nZWibJTcr1qciDv9 UbQcYOGwXJK7nBboFVejh5Wi ZXIt X18peCRmf4M5DWIgaMtfiLIs VoDiuNR5aA7bILexjqvdi2ww oiqwYrpmb1mlle15vH42C59p IHdp KTOuFSXuBQZfRVSxuVsfku9g cM3gYc9+WBBmkLD2xWX7iK1u SgNdXmG0TFgnB100BrRuqYJy Pjxj a7sxr4dusJx5JcDlFOScudUc aWhqKVN6v0WvCh91G47tUOor KETeDBEeNIHzCZTehMajfv9n dG9w Ii8+EK9ea5najb73jI23jJN+ JXWgQPY4tHdlHUltSHIyeJ8s CVvuAgS5GQEmFyRcrI42kIYq ZGlu Si8szXywzQbrIZ5kCHEujjfk l487MkWuk0brWYQrsXVxIGox QXK5H22jf8S7MSHoSYEmKXI7 dGV4 bV2szYljgupxmZUnaLxupgSw pLijEXnrORzdU306OENloNdi SkIhjNJmC3titiXIZF0zSghg dGQ+ MLFcXRE4mWcoZLrhSTOklL5e AYBhG8v4HzDsQjX5EOibR9Ut owM3NLCscWGaEWVjlAHLwX4i cztj u0smppygNxPrBTAnPUj4CHi5 HNSgbZlaBuFpUBM2RmO8SLZ3 lQEcyE0naAzgrtraqC9vBkb+ RklO OjwvdGQ+OZZmYIG1uBzgBUvw YPCnjZ0zAHVhO0v7IpCwGsD3 ODtwV6IplpP2LKPqjTIjHLPk dCBU iO3ntvjvc0mnrhmvWjXlCANd HZu4ACl0OZVpiSkiPkDiRKW3 WxD1KZT3cMMmsP3jbOmrioqx dG9w Oyc+TVJOOjwvdGQ+PHRkIHN0 dYjrZDtrHHOmuE6zDRKvA1e3 MsMpIgP3AQnjF8JaxvW9VAQi bGQg HOGmeIXWmX2zxygvl1bqtsym VzLyQRWaBDj3BSh6WYBxxPxy BoHqOXG9EvL2KTM0iFYxwS3c bGln enttcP2oAxc+HOC8DRR5XC38 IS71H3SmOxzdhMZwxKY+PHRh YmxlIHdpZHRoPScxMDAlJyBz dHls ZT0 (more content not included)... [facility] Coding Summaryon 05-30-2020 Coding Summary CODING DATE: 021 [facility] STATUS: Home PAYOR: Medicare ADMIT DX: REASON [...] Sydney Franklin Date Saved: 05/30/2020 03:[address] [facility] Physical Therapy Noteon 05-13 Physical Therapy Note [id number] TIFF [facility] ED Clinical Summaryon 2020 ED Clinical Summary [facility] ? Urgent Care [address] [place] [address] Clinical Summary PERSON INFORMATION Name: NU RIBEIRO Age: 70 Years Sex: FEMALE : 1950 MRN: Acct#: Visit Reason: UC - Dysuria; PAINFUL URINATION Arrival: 05/20/2020 17:32:27 Discharge: 05/20/2020 18:13:00 LOS: 000 00:41 Check In: 05/20/2020 17:32:27 Checkout: 05/20/2020 18:13:00 Address: [facility] [id number] PCP: Laz Portillo MD PROVIDER INFORMATION Provider [...] EDUCATION INFORMATION Instructions: Urinary Tract Infection, Adult, Kjkn-[id number] Follow-Up: With: Address: When: Laz Portillo [address] [place] [address] [facility] (1) Comments: Begin on the bactrim this is your antibiotic, take as written until gone Drink plenty of water, stay hydrated Follow-up with your primary care provider in 5-7 days for reevaluation DIAGNOSIS: UTI (urinary tract infection) Patient Understands: Yes - Patient/family/caregiver verbalizes understanding of instructions given Comment: [facility] ED Patient Summaryon 021 ED Patient Summary [facility] ? Urgent Care [address] [place] [address] PATIENT DISCHARGE INSTRUCTIONS Patient Information Name: NU RIBEIRO Age: 70 Years Date of : 1950 Reason For Visit: UC - Dysuria; PAINFUL URINATION Arrival Time: 05/20/2020 17:32:27 Primary Care Physician: Laz Portillo MD Attending Physician: Kristopher Conway Comment: Patient Education With: Address: When: Laz Portillo [address] [place] [address] Business (1) Comments: Begin on the bactrim [...] these instructions at home: Medicines ? Take uwwf-vbi-jiclhbj and prescription medicines only as told by [...] 10/15/2008 Document Revised: 04/16/2019 Document Reviewed: 11/06/2018 [employer] Patient Education ? 2019 N[employer]. Medication Information: The exam and treatment you received today in the [facility] Emergency Department were for an urgent problem and are not intended as complete care. It is important for you to follow up with a doctor, nurse practitioner (more content not included)... [facility] UA [id number] 05-20-2020 UA Bacteria None [facility] Comment on above: Order Comment: Urina lysis Microscopic order added on by [employer] system. Performed By: #### 5 [id number], [id number] ####[facility] (DEFAULT)[address] [place] [address] 28054 UA RBC 0-[address] [facility] Comment on above: Order Comment: Urina lysis Microscopic order added on by [employer] system. Performed By: #### 5 [id number], [id number] ####[facility] (DEFAULT)[address] [place] [address] 28181 UA Squam Epi Rare [facility] Comment on above: Order Comment: Urina lysis Microscopic order added on by [employer] system. Performed By: #### 5 [id number], [id number] ####[facility] (DEFAULT)[address] [place] [address] 32796 UA WBC 0-[address] [facility] Comment on above: Order Comment: Urina lysis Microscopic order added on by [employer] system. Performed By: #### 5 [id number], [id number] ####[facility] (DEFAULT)[address] [place] [address] 79778 UA w Culture if Ind Standard on 05-20-2020 Breakpoint UA [facility] Comment on above: Performed By: #### 5 [id number], [id number] ####[facility] (DEFAULT)[address] [place] [address] Color (U) [place] [facility] Comment on above: Result Comment: Test cannot be satisfactorily determined due to intensely colored urine. Performed By: #### 5 [id number], [id number] ####[facility] (DEFAULT)[address] [place] [address] Culture? Not Indicated Invalid Interpretation Code [facility] Comment on above: Performed By: #### 5 [id number], [id number] ####[facility] (DEFAULT)[address] [place] [address] Glucose (U) [Mass/Vol] 250 mg/dL Normal [facility] Comment on above: Performed By: #### 5 [id number], [id number] ####[facility] (DEFAULT)[address] [place] [address] Ketones Ql (U) TRACE [facility] Comment on above: Performed By: #### 5 [id number], [id number] ####[facility] (DEFAULT)[address] [place] [address] 50576 Micro? Indicated Normal [facility] Comment on above: Performed By: #### 5 [id number], [id number] ####[facility] (DEFAULT)[address] [place] [address] 77119 UA Bilirubin Negative Normal [facility] Comment on above: Performed By: #### 5 [id number], [id number] ####[facility] (DEFAULT)[address] [place] [address] 39367 UA Blood Negative Normal NEGATIVE [facility] Comment on above: Performed By: #### 5 [id number], [id number] ####[facility] (DEFAULT)[address] [place] [address] 11138 UA Clarity CLEAR Normal CLEAR [facility] Comment on above: Performed By: #### 5 [id number], [id number] ####[facility] (DEFAULT)[address] [place] [address] 93739 UA Leuk Est Negative Normal NEGATIVE [facility] Comment on above: Performed By: #### 5 [id number], [id number] ####[facility] (DEFAULT)[address] [place] [address] UA Nitrite Positive Abnormal NEGATIVE [facility] Comment on above: Performed By: #### 5 [id number], [id number] ####[facility] (DEFAULT)[address] [place] [address] UA pH 5.0 Normal 5-8 [facility] Comment on above: Performed By: #### 5 [id number], [id number] ####[facility] (DEFAULT)[address] [place] [address] UA Protein 100 Abnormal NEGATIVE [facility] Comment on above: Performed By: #### 5 [id number], [id number] ####[facility] (DEFAULT)[address] [place] [address] UA Spec Grav 1.020 Normal 1.001-1.035 [facility] Comment on above: Performed By: #### 5 [id number], [id number] ####[facility] (DEFAULT)[address] [place] [address] UA Urobilinogen >=8.0 Invalid Interpretation Code 0.2-1.0 [facility] Comment on above: Performed By: #### 5 [id number], [id number] ####[facility] (DEFAULT)[address] [place] [address] Urine Source Clean Catch Normal [facility] Comment on above: Performed By: #### 5 [id number], [id number] ####[facility] (DEFAULT)[address] [place] [address] Urgent Care Note- Provideron 05-20-2020 Urgent Care [...] Lab Flowsheet 05/20/2020 17:35 EST UA Color [place] UA Clarity CLEAR UA Glucose 250 mg/dL [...] cells patient treated with Bactrim for UTI. [place] color and glucose present likely due to Azo treatment. Pt is not diabetic. Home care instructions provided, pt stated understanding of home care instructions. Follow-up with primary care provider in 5-7 days sooner if worse. Impression and Plan Diagnosis UTI (urinary tract infection) ([id number] N39.0, Discharge, Medical) Plan Prescriptions: Launch prescriptions Pharmacy: Bactrim DS 800 mg-160 mg oral tablet (Prescribe): 1 tab(s), PO, BID, for 3 day(s), 6 tab(s), 0 Refill(s). Patient was given the following educational materials: Urinary Tract Infection, Adult, Vzza-au-Tffd, Urinary Tract Infection, Adult, Qtfv-[id number]-Pjpw. Follow up with: Laz Portillo Begin on the Cipro this is your antibiotic, take as written until gone Begin on the azo, take as written until gone. This can help with any burning, cramping or discomfort Drink plenty of water, stay hydrated Follow-up with your primary care provider in 5-7 days for reevaluation, Laz Micheleaman Begin on the bactrim this is your antibiotic, take as written until gone Drink plenty of water, stay hydrated Follow-up with your primary care provider in 5-7 days for reevaluation. Counseled: Patient, Regarding diagnosis, Regarding diagnostic results, Regarding treatment plan, Regarding prescription, Patient indicated understanding of instructions. Normal [facility] Rec[facility] 021 Urgent Care Record [facility] ? Urgent Care [address] [place] [address] PATIENT DISCHARGE INSTRUCTIONS Patient Information Name: NU RIBEIRO Age: 70 Years Date of : 1950 Reason For Visit: UC - Dysuria; PAINFUL URINATION Arrival Time: 05/20/2020 17:32:27 Primary Care Physician: Laz Portillo MD Attending Physician: Kristopher Conway Comment: Visit Diagnosis: Diagnoses This Visit UC - Dysuria ([id number]) UTI (urinary tract infection) (N39.0) If you [...] With: Address: When: Laz Portillo [address] [place] [address] Business (1) Comments: Begin on the bactrim this is your antibiotic, take as written until gone Drink plenty of water, stay hydrated Follow-up with your primary care provider in 5-7 days for reevaluation Medication Information: The exam and treatment you received today in the [facility] were for an urgent problem and are not intended as complete care. It is important for you to follow up with a doctor, nurse practitioner, or physician?s assistant front end manager for ongoing care. If your symptoms become [...] so we can reach you if necessary. [facility] has provided you with a complete list of medications post discharge. Please inform your primary counselor/provider of your visit and for further instruction on these medications. Any specific questions regarding your chronic medications and dosages should be discussed with your primary care physician(s) and/or pharmacist. New Medications [facility] , [address] [place], [place] [id number], [phone] sulfamethoxazole-trimeth oprim (Bactrim DS 800 mg-160 mg [...] take antibiotic medi (more content not included)... [facility] Provider Orderson 04-04-2020 Provider Orders [id number] 1022 [id number] TIFF [facility] CBC Auto Differentialon 01-12 Basophils (Bld) [#/Vol] 0.10 10*3/uL [place] Basophils/100 WBC (Bld) 1 % 0 - 2 % [place] Differential Type NOT REPORTED [place] Eosinophils (Bld) [#/Vol] 0.40 10*3/uL [place] Eosinophils/100 WBC (Bld) 7 % High 0 - 4 % [place] Erythrocyte distribution width (RBC) [Ratio] 12.7 % 11.5 - 14.9 % [place] Hematocrit (Bld) [Volume fraction] 38.4 % 36 - 46 % [place] Hemoglobin (Bld) [Mass/Vol] 13.3 g/dL 12 - 16 g/dL [place] Interpretation and review of laboratory results Abnormal [place] Lymphocytes (Bld) [#/Vol] 2.00 10*3/uL [place] Lymphocytes/100 WBC (Bld) 34 % 24 - 44 % [place] MCH (RBC) [Entitic mass] 30.6 pg 26 - 34 pg [place] MCHC (RBC) [Mass/Vol] 34.6 g/dL 31 - 3 7 g/dL [place] MCV (RBC) [Entitic vol] 88.4 fL 80 - 100 fL [place] Monocytes (Bld) [#/Vol] 0.40 10*3/uL [place] Monocytes/100 WBC (Bld) 7 % 1 - 7 % [place] Platelet mean volume (Bld) [Entitic vol] 7.3 fL 6 - 12 fL [place] Platelets (Bld) [#/Vol] 226 10*3/uL [place] Platelets (Bld) [#/Vol] NOT REPORTED [place] RBC (Bld) [#/Vol] 4.34 10*6/uL 4 - 5.2 m/uL [place] RBC morphology finding Nom (Bld) NOT REPORTED [place] Segmented neutrophils/100 WBC (Bld) 51 % 36 - 66 % [place] Segs Absolute 3.00 [place] WBC (Bld) [#/Vol] NOT REPORTED per 100 WBC [place] WBC (Bld) [#/Vol] 5.9 10*3/uL [place] WBC Morphology NOT REPORTED [place] Comprehensive Metabolic Pane justino 02-03-2020 Albumin [Mass/Vol] 4.3 g/dL 3.5 - 5.2 g/dL [place] Albumin/Globulin [Mass ratio] NOT REPORTED [place] ALP [Catalytic activity/Vol] 54 U/L 35 - 104 U/L [place] ALT [Catalytic activity/Vol] 14 U/L 5 - 33 U/L [place] Anion gap [Moles/Vol] 9 mmol/L 9 - 17 mmol/L [place] AST [Catalytic activity/Vol] 15 U/L <32 [place] Bilirubin Ql (U) 1.20 mg/dL 0.3 - 1.2 mg/dL [place] Bun/Cre Ratio NOT REPORTED [place] Calcium [Mass/Vol] 10.1 mg/dL 8.6 - 10. 4 mg/dL [place] Chloride [Moles/Vol] 102 mmol/L 98 - 10 7 mmol/L [place] CO2 [Moles/Vol] 27 mmol/L 20 - 31 mmol/L [place] Creatinine [Mass/Vol] 0.7 mg/dL 0.5 - 0.9 mg/dL [place] GFR >60 >60 mL/min [place] GFR Non- >60 >60 mL/min [place] GFR/1.73 sq M predicted among non-blacks MDRD (S/P/Bld) [Vol rate/Area] [place] Comment on above: Average GFR for 70 o r more years old: 75 mL/min/1.73sq m Chronic Kidney Disease: <60 mL/min/1.73sq m Kidney failure: <15 mL/min/1.73sq m eGFR calculated using average adult body mass. Additional eGFR calculator available at: http://www.Ramen/Ordr.in_crcl_2012.htm GFR/1.73 sq M predicted among non-blacks MDRD (S/P/Bld) [Vol rate/Area] NOT REPORTED [place] Glucose [Mass/Vol] 88 mg/dL 70 - 99 mg/dL [place] Potassium [Moles/Vol] 4.7 mmol/L 3.7 - 5.3 mmol/L [place] Protein [Mass/Vol] 7.1 g/dL 6.4 - 8.3 g/dL [place] Sodium [Moles/Vol] 138 mmol/L 135 - 144 mmol/L [place] Urea nitrogen [Mass/Vol] 21 mg/dL 8 - 23 mg/dL [place] Otheron 02-03-2020 Immature granulocytes (Bld) [#/Vol] NOT REPORTED [place] TSH without Reflexon 020 TSH Qn 1.69 m[IU]/L [place] VL Upper Extremity Venous Du plex Lefton 02-03-2020 [facility] Vascular Upper Extremities Veins Procedure Patient Name KINSTLER Date of Study 02/03/2020 [facility] Date of 1950 Gender Female Age 69 year(s) Race Room Number OP Corporate ID [id number] # Patient Acct [id number] # MR # [id number] 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 ! + --+ --+ ---+ [facility] [place], [place] Tao, [place] Incoming Cardio Results From [facility]/ - 02/03/2020 9:17 PM EDT [facility] Vascular Upper Extremities Veins Procedure Patient Name QUINTIN Date of Study 02/03/2020 NU Ibarra Date of 1950 Gender Female Age 69 year(s) Race Room Number OP Corporate ID [id number] # Patient Acct [id number] # MR # [id number] Wagon Driver Salesperson Yomi Alexander Interpreting Dread Hameed Physician Referring [...] ! ! + --+ --+ --- + [email or web address] Measurabl XR SHOULDER LEFT (MIN 2 VIEW S)on 11-12-2019 1. No acute bony or joint abnormality 2. AC joint and glenohumeral joint degenerative changes [email or web address] EXAMINATION: THREE X RAY VIEWS OF THE LEFT SHOULDER 11/12/2019 2:06 pm COMPARISON: None. HISTORY: ORDERING SYSTEM PROVIDED HISTORY: Rotator cuff arthropathy of left shoulder TECHNOLOGIST PROVIDED HISTORY: Reason for Exam: chronic shoulder pain Acuity: Chronic Type of Exam: Initial FINDINGS: Alignment is anatomic. 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 No fractures or destructive bony abnormalities are identified. [place] W[place]DE[place] Tao, pn Incoming Radiant Results From [employer] - 11/12/2019 2:24 PM EDT EXAMINATION: THREE [...] AC joint and glenohumeral joint degenerative changes [facility] NGUYEN DIGITAL DIAGNOSTIC W OR WO CAD [...] to the patient regarding the results. The [employer] recommends annual mammograms for women 40 years and older. [place] [facility] [place] EXAMINATION: DIAGNOS TIC DIGITAL LEFT BREAST MAMMOGRAM, [...] for a bilateral mammogram in January 2020. [place] [employer] [place] Tao, Mhpn Incoming Radiant Results From [employer] - 07/31/2019 6:05 PM EDT EXAMINATION: DIAGNOSTIC [...] to the patient regarding the results. [employer] recommends annual mammograms for women 40 years and older. [place] Otheron 01-30-2019 No evidence of malignancy. Post [...] sent to the patient regarding the results. [place] EXAMINATION: BILATER AL DIGITAL DIAGNOSTIC MAMMOGRAM; TARGETED [...] prior study performed in August reportedly aspirated. [facility] [place], [place] Tao, pn Incoming Radiant Results From [employer] - 01/30/2019 4:33 PM EDT EXAMINATION: BILATERAL [...] status post lumpectomy and radiation therapy in 2018. Prior aspiration of a seroma. FINDINGS: Mammogram: [...] sent to the patient regarding the results. [facility] [place], [facility] STEREO BREAST BX W LOC D EVICE 1ST LESION LEFTon 12-31-2017 [facility] STEREO BREAST BX W LOC DEVICE 1ST [...] by:Lizbeth Lees MD12/30/17Edited Result - FINAL Normal [facility] MAMMOGRAM POST BX CLIP PLACE MENT LEFTon 12-31-2017 MAMMOGRAM POST BX CLIP PLACEMENT LEFT [...] by:Lizbeth Lees MD12/30/17Edited Result - FINAL Normal [facility] Surgical Pathologyon 018 Surgical Pathology (NOTE)[id number] LABORATORIESCONSULTING PATHOLOGISTS [facility] [id number] [place], [place] [id number] Fax: SURGICAL PATHOLOGY CONSULTATIONPatient Name: [facility] Rec: [id number] Number: [id number]: 12/26/2017Received: 12/26/2017Reported: 12/27/2017 12:48-- Diagnosis --LEFT BREAST, 1:00, STEREOTACTIC CORE NEEDLE BIOPSIES: -PROMINENT STROMAL SCLEROSIS. -FOCAL ATYPICAL LOBULAR HYPERPLASIA. -NEGATIVE FOR DUCTAL HYPERPLASIA OR MALIGNANCY.Jonny Herrmann M.D.Electronically Signed Out 12/27/2017Clinical InformationPre-op Diagnosis: LT BREAST MASS Operative Findings: LEFT 1:00Operation Performed: STEREO BXSource of Specimen1: LEFT 1:00Gross Description NU RIBEIRO BREAST 1:00 Pale yellow-red cores andfragments of fibrofatty tissue, 5.0 x 4.0 x 0.3 cm in aggregate. Entirely 2cs. jg tmMicroscopic DescriptionSections of fibroglandular breast tissue show prominent stromalsclerosis. Focal lobules show slight expansion of epithelial cells.There is no evidence of carcinoma in situ or invasive malignancy. Slides were reviewed with a second pathologist (MILENA) who agrees withthe diagnosis. Normal [facility] Comment on above: Performed By: #### P PPVS ####[facility] [address] [place], [place] [id number] Vital Signs Date Time Vital Sign Value Performing Clinician Facility 02-27-2024 13:17-0400 Body height 158.8 cm Desiree Bhakta MD Work Phone: [facility] 02-27-2024 13:17-0400 Body mass index (BMI) [Ratio] 28.98 kg/m2 Desiree Bhakta MD Work Phone: [facility] 02-27-2024 13:17-0400 Body weight 73.03 kg Desiree Bhakta MD Work Phone: [facility] 02-27-2024 13:17-0400 Diastolic blood pressure 76 mm[Hg] Desiree Bhakta MD Work Phone: [facility] 02-27-2024 13:17-0400 Systolic blood pressure 120 mm[Hg] Desiree Bhakta MD Work Phone: [facility] 07-19-2023 10:29-0500 Body temperature 97.11 [degF] Gato Cano MD Work Phone: [facility] 07-19-2023 10:29-0500 Body weight 74.9 kg Gato Cano MD Work Phone: [facility] 07-19-2023 10:29-0500 Diastolic blood pressure 66 mm[Hg] Gato Cano MD Work Phone: [facility] 07-19-2023 10:29-0500 Heart rate 69 /min Gato Cano MD Work Phone: [facility] 07-19-2023 10:29-0500 Respiratory rate 18 /min Gato Cano MD Work Phone: [facility] 07-19-2023 10:29-0500 SaO2% (BldA) [Mass fraction] 100 % Gato Cano MD Work Phone: [facility] 07-19-2023 10:29-0500 Systolic blood pressure 134 mm[Hg] Gato Cano MD Work Phone: [facility] 01-11-2023 14:27-0400 Body height 161.3 cm Allyssa Lopez BIOFUELS MANAGER.STRIPE MATCHER Work Phone: [facility] 01-11-2023 14:27-0400 Body temperature 97.7 [degF] Allyssa Lopez BIOFUELS MANAGER.STRIPE MATCHER Work Phone: [facility] 01-11-2023 14:27-0400 Body weight 73.75 kg Allyssa Lopez APRN.STRIPE MATCHER Work Phone: [facility] 01-11-2023 14:27-0400 Diastolic blood pressure 59 mm[Hg] Allyssa Lopez BIOFUELS MANAGER.STRIPE MATCHER Work Phone: [facility] 01-11-2023 14:27-0400 Heart rate 75 /min Allyssa Lopez APRN.STRIPE MATCHER Work Phone: [facility] 01-11-2023 14:27-0400 Respiratory rate 16 /min Allyssa Lopez APRN.STRIPE MATCHER Work Phone: [facility] 01-11-2023 14:27-0400 SaO2% (BldA) [Mass fraction] 98 % Allyssa Lopez APRN.STRIPE MATCHER Work Phone: [facility] 01-11-2023 14:27-0400 Systolic blood pressure 125 mm[Hg] Allyssa Lopez APRN.STRIPE MATCHER Work Phone: [facility] 08-16-2022 14:40-0400 Body temperature 97.3 [degF] Josesito Basurto MD Work Phone: [facility] 08-16-2022 14:40-0400 Diastolic blood pressure 74 mm[Hg] Josesito Basurto MD Work Phone: [facility] 08-16-2022 14:40-0400 Heart rate 55 /min Josesito Basurto MD Work Phone: [facility] 08-16-2022 14:40-0400 Respiratory rate 12 /min Josesito Basurto MD Work Phone: [facility] 08-16-2022 14:40-0400 SaO2% (BldA) [Mass fraction] 98 % Josesito Basurto MD Work Phone: [facility] 08-16-2022 14:40-0400 Systolic blood pressure 169 mm[Hg] Josesito Basurto MD Work Phone: [facility] 08-16-2022 11:25-0400 Body height 165.1 cm Josesito Basurto MD Work Phone: [facility] 08-16-2022 11:25-0400 Body mass index (BMI) [Ratio] 27.46 kg/m2 Josesito Basurto MD Work Phone: [facility] 08-16-2022 11:25-0400 Body weight 74.84 kg Josesito Basurto MD Work Phone: [facility] 07-12-2022 14:45-0500 Diastolic blood pressure 66 mm[Hg] Josesito Basurto MD Work Phone: [facility] 07-12-2022 14:45-0500 Respiratory rate 17 /min Josesito Basurto MD Work Phone: [facility] 07-12-2022 14:45-0500 SaO2% (BldA) [Mass fraction] 95 % Josesito Basurto MD Work Phone: [facility] 07-12-2022 14:45-0500 Systolic blood pressure 167 mm[Hg] Josesito Basurto MD Work Phone: [employer] 07-12-2022 14:40-0500 Body temperature 97.3 [degF] Josesito Basurto MD Work Phone: [employer] 07-12-2022 14:40-0500 Heart rate 56 /min Josesito Basurto MD Work Phone: [employer] 07-12-2022 11:50-0500 Body height 165.1 cm Josesito Basurto MD Work Phone: [employer] 07-12-2022 11:50-0500 Body mass index (BMI) [Ratio] 27.46 kg/m2 Josesito Basurto MD Work Phone: [employer] 07-12-2022 11:50-0500 Body weight 74.84 kg Josesito Basurto MD Work Phone: [employer] 05-30-2022 19:00-0500 Body height 165.1 cm Татьяна Guerrero Other [employer] Other 05-30-2022 19:00-0500 Body mass index (BMI) [Ratio] 27.45 kg/m2 Татьяна Guerrero Other [employer] Other 05-30-2022 19:00-0500 Body temperature 98 [degF] Татьяна Guerrero Other [employer] Other 05-30-2022 19:00-0500 Body weight 74.84 kg Татьяна Guerrero Other [employer] Other 05-30-2022 19:00-0500 Diastolic blood pressure 74 mm[Hg] Татьяна Guerrero Other [employer] Other 05-30-2022 19:00-0500 Respiratory rate 18 /min Татьяна Guerrero Other [employer] Other 05-30-2022 19:00-0500 SaO2% (BldA) [Mass fraction] 98 % Татьяна Guerrero Other [employer] Other 05-30-2022 19:00-0500 Systolic blood pressure 154 mm[Hg] Татьяна Guerrero Other [employer] Other Encounters Encounter Date Encounter Type Care Provider Facility Start: 03-24-2024 End: 03-24-2024 Bamboo Fleckchapo Ramos [employer] Work Phone: [facility] Start: 03-24-2024 End: 03-24-2024 Bamboo Fleckchapo Ramos [employer] Work Phone: [facility] Start: 03-24-2024 End: 03-24-2024 Postop follow up visit related to original px Clementina Ramos [employer] Work Phone: [facility] Comment on above: Closed fracture of d istal end of left fibula with routine healing, unspecified fracture morphology, subsequent encounter Start: 03-24-2024 End: 03-24-2024 ambulatory CLEMENTINA RAMOS Not Available Start: 03-09-2024 End: 03-09-2024 Orders Only Sandi Kulkarni [employer] Work Phone: [facility] 210 Comment on above: 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 Comment on above: Closed fracture of d istal end of left fibula with routine healing, unspecified fracture morphology, subsequent encounter Start: 02-27-2024 End: 02-27-2024 Bamboo flowsheet Desiree Bhakta MD Work Phone: [facility] Start: 02-27-2024 End: 02-27-2024 Bamboo flowsheet Desiree Bhakta MD Work Phone: [facility] Start: 02-27-2024 End: 02-27-2024 Office outpatient visit 25 minutes Desiree Bhakta MD Work Phone: [facility] Comment on above: 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 Start: 02-27-2024 End: 02-27-2024 ambulatory DESIREE BHAKTA Not Available Start: 02-24-2024 End: 02-24-2024 Bamboo flowsheet Clementina Ramos [employer] Work Phone: [facility] Start: 02-24-2024 End: 02-24-2024 Bamboo flowsheet Clementina Ramos [employer] Work Phone: [facility] Start: 02-24-2024 End: 02-24-2024 ambulatory CLEMENTINA RAMOS Not Available Start: 02-24-2024 End: 02-24-2024 Office outpatient visit 15 minutes Clementina Ramos [employer] Work Phone: [facility] Comment on above: Closed fracture of d istal end of left fibula, unspecified fracture morphology, initial encounter (Primary Dx); Acute left ankle pain Start: 02-03-2024 End: 02-03-2024 ambulatory BOLA BERRY Not Available Start: 01-20-2024 End: 01-20-2024 ambulatory BOLA BERRY Not Available Start: 12-22-2023 Trevor maddox MD Work Phone: Hematology/Oncology Comment on above: Refill Request Start: 12-19-2023 End: 12-19-2023 ambulatory DESIREE BHAKTA Not Available Start: 12-12-2023 End: 12-12-2023 ambulatory DESIREE BHAKTA Not Available Start: 10-31-2023 End: 10-31-2023 ambulatory DESIREE BHAKTA Not Available Start: 09-25-2023 Refill Gato maddox MD Work Phone: Hematology/Oncology Comment on above: Refill Request Start: 07-19-2023 End: 07-19-2023 ambulatory LAZ SANTOS LINDSEY Facility:[facility] Start: 07-19-2023 End: 07-19-2023 ambulatory Chair Tyesha [...] Start: 01-11-2023 End: 01-12-2023 ambulatory Allyssa Lopez APRN.STRIPE MATCHER Work Phone: Hematology/Oncology Comment on above: Malignant neoplasm o f upper-outer quadrant of left breast in female, estrogen receptor positive (HCC) (Primary Dx); 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 therapy Osteopenia due to ca ncer therapy (Primary Dx); Malignant neoplasm of upper-outer quadrant of left breast in female, estrogen receptor positive (HCC) Start: 01-11-2023 End: 01-11-2023 Patient encounter procedure Allyssa Lopez APRN.STRIPE MATCHER Work Phone: [facility] Start: 08-16-2022 End: 08-16-2022 ambulatory [facility] Start: 08-16-2022 End: 08-16-2022 Subsequent hospital visit by physician Josesito Basurto MD Work Phone: [facility] Start: 07-20-2022 End: 07-20-2022 ambulatory LAZ PORTILLO Facility:[facility] Start: 07-17-2022 Telephone encounter Gato olivares MD Work Phone: Hematology/Oncology Comment on above: Lab Orders Start: 07-12-2022 End: 07-12-2022 ambulatory JOSESITO BASURTO [facility] Start: 07-12-2022 End: 07-12-2022 Subsequent hospital visit by physician Josesito Basurto MD Work Phone: [facility] Start: 07-05-2022 End: 07-10-2022 ambulatory LAZ Nick [facility] Start: 07-03-2022 End: 07-04-[address] ALLYSSA LOPEZ Facility: Start: 05-30-2022 End: 05-30-2022 ambulatory Татьяна Guerrero Other [employer] Other Start: 05-30-2022 Office outpatient ne w 20 minutes Татьяна Guerrero [facility] [place] Start: 02-20-2022 End: 02-21-2022 ambulatory GARO CHILANGO . Facility:[facility] Start: 01-28-2022 End: 01-28-[address] DOCTOR ESQUEDA Facility: Start: 09-28-2021 Telephone encounter Gato olivares MD [facility] Comment on above: Patient Update Start: [...] visit by physician Walter Xr Room 4 [facility] Radiology Comment on above: Rotator cuff arthrop athy of left shoulder Start: 07-31-2019 End: 08-02-2019 Subsequent hospital visit by physician pedro Diag Mammo [facility] Mammography Comment on above: Abnormal mammogram Start: 01-30-2019 End: 02-01-2019 Subsequent hospital visit by physician Walter Fuchs Mammo [facility] Mammography Comment on above: History of breast ca ncer Lump in female breas t Start: 12-26-2017 End: 12-29-2017 Patient encounter TRIPP PORTILLO [facility] Procedures Date Procedure Procedure Detail Performing Clinician Start: 03-24-2024 Radex ankle complete minimum 3 views Clementina Ramos NP Work Phone: Start: 03-03-2024 Radex ankle complete minimum 3 views Clementina Ramos [employer] Work Phone: Start: 11-29-2020 Cyanocobalamin vitamin b-12 Raul Moralesdonny Work Phone: Start: 09-20-2020 Comprehensive metabo lic [...] Work Phone: Start: 12-26-2017 SURGICAL PATHOLOGY RANI HENLEY LINDSEY Start: 12-26-2017 Diagnostic mammograp hy computer-aided detcj uni TRIPP LIMONJUSTIN Start: 12-26-2017 Bx breast w/device 1 st lesion stereotactic guid TRIPP BALTAZARWINNIE Plan of Treatment Date Care Activity Detail Author Start: 06-26-2028 Colon cancer screen colonoscopy Colon cancer screen colonoscopy [facility] [place] Start: 06-26-2028 Screening for malignant neoplasm of colon [facility] Start: 07-18-2026 Diabetes Screening Diabetes Screenin g [facility] Start: 01-11-2026 DIABETES SCREEN [facility]ES SCREEN [facility] Start: 09-20-2025 Lipid panel [facility] Start: 07-24-2024 End: 07-24-2024 ambulatory 07/24/2024 10:30 AM EDT [facility] Hematology/Oncology [address] [id number] [facility] Comment on above: [facility] Start: 07-24-2024 End: 07-24-2024 Follow-up encounter 07/24/2024 10:15 AM EDT Visit (SP) Office Hematology/Oncology [address] [address] Gato Cano MD [address] [address] 6 month follow up with lab and prolia Hematology/Oncology Comment on above: 6 month follow up wi lab and prolia Start: 07-24-2024 End: 07-24-2024 Patient encounter procedure 07/24/2024 10:00 AM EDT Office Visit [facility] [address] [place] [address] [place] [address] 6 month follow up with lab and prolia [facility] Comment on above: 6 month follow up wi lab and prolia Start: 07-18-2024 End: 08-17-2024 BD DXA TRABECULAR BONE SCORE (TBS) BD DXA TRABECULAR BONE SCORE (TBS) Radiology Routine Malignant neoplasm of upper-outer quadrant of left breast in female, estrogen receptor positive (HCC) Personal history of malignant neoplasm of breast Expected: 07/18/2024 (Approximate), Expires: 08/17/2024 [facility] Work Phone: Comment on above: Expected: 07/18/2024 (Approximate), Expires: 08/17/2024 Start: 07-18-2024 End: 10-17-2024 Cancer Ag 15-3 [Units/volume] in Serum or Plasma CA 15-3 BLD Lab Routine Malignant neoplasm of upper-outer quadrant of left breast in female, estrogen receptor positive (HCC) Personal history of malignant neoplasm of breast Expected: 07/18/2024 (Approximate), Expires: 10/17/2024 [facility] Work Phone: Comment on above: Expected: 07/18/2024 (Approximate), Expires: 10/17/2024 Start: 07-18-2024 End: 10-17-2024 Cancer Ag 27-29 [Units/volume] in Serum or Plasma CA 27.29 BLOOD Lab Routine Malignant neoplasm of upper-outer quadrant of left breast in female, estrogen receptor positive (HCC) Personal history of malignant neoplasm of breast Expected: 07/18/2024 (Approximate), Expires: 10/17/2024 [facility] Work Phone: Comment on above: Expected: 07/18/2024 (Approximate), Expires: 10/17/2024 Start: 07-18-2024 End: 10-17-2024 CBC W Auto Differential panel - Blood CBC + DIFF Lab Routine Malignant neoplasm of upper-outer quadrant of left breast in female, estrogen receptor positive (HCC) Personal history of malignant neoplasm of breast Expected: 07/18/2024 (Approximate), Expires: 10/17/2024 [facility] Work Phone: Comment on above: Expected: 07/18/2024 (Approximate), Expires: 10/17/2024 Start: 07-18-2024 End: 10-17-2024 Comprehensive metabolic 2000 panel - Serum or Plasma COMP METABOLIC PANEL Lab Routine Malignant neoplasm of upper-outer quadrant of left breast in female, estrogen receptor positive (HCC) Personal history of malignant neoplasm of breast Expected: 07/18/2024 (Approximate), Expires: 10/17/2024 [facility] Work Phone: Comment on above: Expected: 07/18/2024 (Approximate), Expires: 10/17/2024 Start: 07-18-2024 End: 08-17-2024 DXA Skeletal system.axial Views for bone density and vertebral fracture DXA-AXIAL SKELETON WITH VFA Radiology Routine Malignant neoplasm of upper-outer quadrant of left breast in female, estrogen receptor positive (HCC) Personal history of malignant neoplasm of breast Expected: 07/18/2024 (Approximate), Expires: 08/17/2024 [facility] Work Phone: Comment on above: Expected: 07/18/2024 (Approximate), Expires: 08/17/2024 Start: 07-18-2024 End: 08-17-2024 MG Breast Screening NGUYEN SCREENING Radiology Routine Personal history of malignant neoplasm of breast Breast screening Expected: 07/18/2024 (Approximate), Expires: 08/17/2024 [facility] Work Phone: Comment on above: Expected: 07/18/2024 (Approximate), Expires: 08/17/2024 Start: 05-28-2024 End: 05-28-2024 Patient encounter procedure 05/28/2024 1:40 PM EST Office Visit [facility] [address] [facility] [address] [place] [address] Desiree Bhakta MD [address] [facility] [address] [address] [facility] Start: 04-23-2024 End: 04-23-2024 Patient encounter procedure 04/23/2024 2:30 PM EST Office Visit [facility] [address] [place] [phone] Clementina Ramos, GIL [address] [place] [address] [facility] Start: 03-24-2024 End: 03-24-2024 Patient encounter procedure 03/24/2024 1:15 PM EST Office Visit [facility] [address] [facility] [address] [place] [phone] Clementina Ramos, STATE'S ATTORNEY [address] [place], [place] [id number] [facility] Start: 03-23-2024 DIABETES SCREEN DIABETES SCREEN [facility] Start: 03-16-2024 End: 03-16-2024 Patient encounter procedure 03/16/2024 1:15 PM EST Office Visit [facility] [address] [place] [phone] Jr. Bola Guaman, [address] [facility] [address] [place] [address] [facility] Start: 03-03-2024 End: 03-03-2024 Patient encounter procedure 03/03/2024 10:30 AM EDT Office Visit [facility] [address] [facility] [address] [place] [phone] Clementina Ramos, STATE'S ATTORNEY [address] [place], [place] [id number] [facility] Start: 02-27-2024 End: 02-27-2024 Patient encounter procedure [facility] Comment on above: Arrived Start: 01-12-2024 BP CONTROLLED (<130/80) BP CONTROLLED (<130/80) [facility] Start: 01-12-2024 Influenza vaccination Influenza Vacc ine (#1) [facility] Start: 08-06-2023 Shingrix Vaccine (2 of 2) Shingrix Vaccine (2 of 2) [facility] Start: 07-26-2023 Depression Monitoring Depression [facility] Start: 07-21-2023 BP CONTROLLED (<130/80) BP CONTROLLED (<130/80) [facility] Start: 07-12-2023 End: 09-11-2023 CBC W Auto Differential panel - Blood CBC + DIFF Lab Routine Malignant neoplasm of upper-outer quadrant of left breast in female, estrogen receptor positive (HCC) 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 therapy Expected: 07/12/2023, Expires: 09/11/2023 [facility] Work Phone: Comment on above: Expected: 07/12/2023 , Expires: 09/11/2023 Start: 07-12-2023 End: 09-11-2023 Comprehensive metabolic 2000 panel - Serum or Plasma COMP METABOLIC PANEL Lab Routine Malignant neoplasm of upper-outer quadrant of left breast in female, estrogen receptor positive (HCC) 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 therapy Expected: 07/12/2023, Expires: 09/11/2023 [facility] Work Phone: Comment on above: Expected: 07/12/2023 , Expires: 09/11/2023 Start: 05-13-2023 Advance Directive Discussion Advance Directive Discussion [facility] Start: 05-13-2023 Behavioral Health Screening Behavioral Health Screening [facility] Start: 05-13-2023 Depression Assessment Depression Ass essment [facility] Start: 04-27-2023 Annual Wellness Visi t (AWV) Annual Wellness Visit (AWV) [facility] Start: 04-26-2023 [facility] Start: 04-26-2023 DTaP/Tdap/Td vaccine (1 - Tdap) DTaP/Tdap/Td vaccine (1 - Tdap) [facility] Comment on above: Postponed from 02/21 (Patient Refused) Start: 03-03-2023 Screening for malignant neoplasm of breast Breast cancer screen [facility] Start: 01-11-2023 Covid-19 Vaccine (2022- season) Covid-19 Vaccine ( season) [facility] Start: 01-11-2023 Influenza vaccination INFLUENZA (#1) [facility] Start: 12-04-2022 Lipid panel Lipid screen [facility] [place], [place] Start: 12-04-2022 Lipid screen Lipid screen [facility] [place], [place] Start: 10-26-2022 End: 10-26-2022 Patient encounter procedure 10/26/2022 Office Visit Primary Care Laz Portillo MD [address] [place] [address] [facility] Start: 10-25-2022 COVID-19 Vaccine (3 - Booster for Moderna series) COVID-19 Vaccine (3 - Booster for Moderna series) [facility] Comment on above: Postponed from 09/20 (Patient Refused) Start: 09-24-2022 Pneumococcal 65+ yea rs Vaccine (1 - PCV) Pneumococcal 65+ years Vaccine (1 - PCV) [facility] Comment on above: Postponed from 02/21 (Patient Refused) Start: 08-16-2022 End: 08-16-2022 Xcapsl ctrc rmvl insj io lens prosth w/o ecp EYE CATARACT EMULSIFICATION IOL IMPLANT Cataract of right eye, unspecified cataract type 08/16/2022 1:34 PM EDT [facility] Start: 07-25-2022 Shingles vaccine (1 of 2) Shingles vaccine (1 of 2) [facility] Comment on above: Postponed from 02/21 (Patient Refused) Start: 07-25-2022 End: 07-25-2022 Patient encounter procedure 07/25/2022 Office Visit Primary Care Mary Katz, [employer]S MANAGER - STRIPE MATCHER [address] [place] [address] [facility] Start: 07-12-2022 End: 07-12-2022 Xcapsl ctrc rmvl insj io lens prosth w/o ecp EYE CATARACT EMULSIFICATION IOL IMPLANT Cataract, nuclear sclerotic, left eye 07/12/2022 1:33 PM EST [facility] Start: 05-13-2022 ADVANCE DIRECTIVE DISCUSSION ADVANCE DIRECTIVE DISCUSSION [facility] Start: 05-13-2022 DEPRESSION ASSESSMENT DEPRESSION ASS ESSMENT [facility] Start: 01-11-2022 Influenza vaccination INFLUENZA (Sea son Ended) [facility] Start: 10-02-2021 End: 09-23-2022 CBC W Auto Differential panel - Blood CBC + DIFF Lab Routine Malignant neoplasm of upper-outer quadrant of left breast in female, estrogen receptor positive (HCC) 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 therapy Expected: 10/02/2021 (Approximate), Expires: 09/23/2022 [facility] Work Phone: Comment on above: Expected: 10/02/2021 (Approximate), Expires: 09/23/2022 Start: 10-02-2021 End: 09-23-2022 Comprehensive metabolic 2000 panel - Serum or Plasma COMP METABOLIC PANEL Lab Routine Malignant neoplasm of upper-outer quadrant of left breast in female, estrogen receptor positive (HCC) 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 therapy Expected: 10/02/2021 (Approximate), Expires: 09/23/2022 [facility] Work Phone: Comment on above: Expected: 10/02/2021 (Approximate), Expires: 09/23/2022 Start: 10-02-2021 End: 12-02-2021 VITAMIN D 25 HYDROXY VITAMIN D 25 HYDROXY Lab Routine Malignant neoplasm of upper-outer quadrant of left breast in female, estrogen receptor positive (HCC) 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 therapy Expected: 10/02/2021 (Approximate), Expires: 12/02/2021 [facility] Work Phone: Comment on above: Expected: 10/02/2021 (Approximate), Expires: 12/02/2021 Start: 09-20-2021 Creatinine measurement Creatinine mo [facility] [employer] Phone: Start: 09-20-2021 Potassium monitoring Potassium monit [facility] [employer] Phone: Start: 05-13-2021 ADVANCE DIRECTIVE DISCUSSION ADVANCE DIRECTIVE DISCUSSION [facility] Start: 01-13-2021 End: 01-13-2021 Patient encounter procedure 01/13/2021 Office Visit Family Medicine Laz Portillo MD [address] [place] [address] [phone] [facility] Start: 01-11-2021 Influenza vaccination Flu vaccine (# 1) [employer] Phone: Start: 10-28-2020 Adult depression screening assessment DEPRESSION SCREENING [facility] Start: 09-28-2020 End: 09-28-2020 Patient encounter procedure 09/28/2020 Office Visit Family Medicine Laz Portillo MD [address] [place] [address] [phone] [facility] Start: 09-20-2020 COVID-19 VACCINE (3 - Booster for Moderna series) COVID-19 VACCINE (3 - Booster for Moderna series) [facility]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 piggyback 100 mL (ZOMETA) 4 mg, INTRAVENOUS, Administer over 15 Minutes, ONCE, 1 dose, On Sat01/11/23 at 1530, Hazardous Potential Reproductive Risk Drug: Use appropriate PPE. New Bag/Syringe/Bottle 01/11/2023 3:43 PM EDT 4 mg Additional Source Comments INFORMATION SOURCE (unrecogn ized section and content) DATE CREATED AUTHOR 12/31/2017 [facility] DATE CREATED AUTHOR AUTHOR'S ORGANIZ ATION [facility]/31/2021 [facility] DATE CREATED AUTHOR AUTHOR'S ORGANIZ ATION 07/07/2022 [facility] DATE CREATED AUTHOR AUTHOR'S ORGANIZ ATION 08/18/2022 [facility] DATE CREATED AUTHOR AUTHOR'S ORGANIZ ATION 07/20/2023 [facility] DATE CREATED AUTHOR AUTHOR'S ORGANIZ ATION 03/30/2024 [facility] EPIC Reason for Visit (unrecogniz ed section and content) Status Reason Specialty Diagnoses / Procedures Referre d By Contact Referred To Contact Open Radiology Diagnoses Personal history of malignant neoplasm of breast Procedures HC MAMMO DGX UNILATERAL INCL CAD IF PERF Keegan Canela [address] [place] [address] [address] Status Reason Specialty Diagnoses / Procedures Referre d By Contact Referred To Contact Closed Radiology Diagnoses Swelling of limb Malignant neoplasm of upper-outer quadrant of left breast in female, estrogen receptor positive (HCC) Procedures US DUP UPPER EXTREMITY LEFT VENOUS Laz Portillo MD [address] [place] [address] Status Reason Specialty Diagnoses / Procedures Referre d By Contact Referred To Contact Open Radiology Diagnoses Malignant neoplasm of unspecified site of left female breast Procedures HC MAMMO DGX BILATERAL INCL CAD IF PERF Sulaiman Bronson MD [facility] [place] [address] [place] [address] Status Reason Specialty Diagnoses / Procedures Referred By Contact Referred To Contact Pending Review Radiology Diagnoses Malignant neoplasm of unspecified site of left female breast Procedures US BREAST LTD Sulaiman Bronson MD [address] [place] [address] [facility] [address] [place] [address] Status Reason Specialty Diagnoses / Procedures Referred By Contact Referred To Contact Authorized Cardiology Diagnoses Hypertension, unspecified type Syncope, unspecified syncope type Procedures [address] - MT Duplex Scan Extracranial, Luis M Laz Portillo MD [address] [place] [address] Status Reason Specialty Diagnoses / Procedures Referre d By Contact Referred To Contact Closed Diagnoses Syncope, unspecified syncope type Procedures ECHO 2D WO Color Doppler Complete Laz Portillo MD [address] [place] [address] Reason Comments Lab Orders Reason Comments Patient Update Specialty Diagnoses / Procedures Referred By Alex amador Referred To Contact Diagnoses Cataract, nuclear sclerotic, left eye Cataract, nuclear sclerotic, left eye [H25.12] Procedures MT XCAPSL CTRC RMVL INSJ IO LENS PROSTH W/O ECP EYE CATARACT EMULSIFICATION IOL IMPLANT LEFT EYE PERIBULBAR ; Josesito Dawn MD [address] [facility] [address] [place] [address] [facility] [address] [place] [address] Referral ID Status Reason Start Date Expiration Date Visits Re quested Visits Authorized [id number] 1 1 Specialty Diagnoses / Procedures Referred By Alex t Referred To Contact Diagnoses Cataract of right eye, unspecified cataract type Cataract of right eye, unspecified cataract type [H26.9] Procedures MT XCAPSL CTRC RMVL INSJ IO LENS PROSTH W/O ECP EYE CATARACT EMULSIFICATION IOL IMPLANT Josesito Basurto MD [address] [facility] [address] [place] [address] [facility] [address] [place] [address] Referral ID Status Reason Start Date Expiration Date Visits Re quested Visits Authorized [id number] 1 1 Reason Comments Breast Cancer Specialty Diagnoses / Procedures Referred By Contac t Referred To Contact Diagnoses Malignant neoplasm of upper-outer quadrant of left breast in female, estrogen receptor positive (HCC) 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 therapy Procedures INJECTION, ZOLEDRONIC ACID, 1 MG Gato Cano MD [address] [address] Cory [facility] [place] [address] [address] Referral ID Status Reason Start Date Expiration Date V isits Requested Visits Authorized [id number] Authorized 07/20/2022 01/19/2023 1 1 Referral ID Status Reason Start Date Expiration Date V isits Requested Visits Authorized [id number] Authorized 07/20/2022 01/22/2024 3 3 Reason Comments Breast Cancer Reason Comments Refill Request Reason Comments Pain Reason Comments Follow-up Source Comments (unrecognize d section and content) In the event this informatio n is protected by the Federal Confidentiality of Alcohol and Drug Abuse Patient Records regulations: The Federal rules restrict any use of the information to criminally investigate or prosecute any alcohol or drug abuse patient.[facility] the event this information is protected by the Federal Confidentiality of Alcohol and Drug Abuse Patient Records regulations: The Federal rules restrict any use of the information to criminally investigate or prosecute any alcohol or drug abuse patient.[facility] the event this information is protected by the Federal Confidentiality of Alcohol and Drug Abuse Patient Records regulations: The Federal rules restrict any use of the information to criminally investigate or prosecute any alcohol or drug abuse patient.[facility] the event this information is protected by the Federal Confidentiality of Alcohol and Drug Abuse Patient Records regulations: The Federal rules restrict any use of the information to criminally investigate or prosecute any alcohol or drug abuse patient.[facility] the event this information is protected by the Federal Confidentiality of Alcohol and Drug Abuse Patient Records regulations: The Federal rules restrict any use of the information to criminally investigate or prosecute any alcohol or drug abuse patient.[facility] the event this information is protected by the Federal Confidentiality of Alcohol and Drug Abuse Patient Records regulations: The Federal rules restrict any use of the information to criminally investigate or prosecute any alcohol or drug abuse patient.[facility] the event this information is protected by the Federal Confidentiality of Alcohol and Drug Abuse Patient Records regulations: The Federal rules restrict any use of the information to criminally investigate or prosecute any alcohol or drug abuse patient.[facility] the event this information is protected by the Federal Confidentiality of Alcohol and Drug Abuse Patient Records regulations: The Federal rules restrict any use of the information to criminally investigate or prosecute any alcohol or drug abuse patient.[facility] the event this information is protected by the Federal Confidentiality of Alcohol and Drug Abuse Patient Records regulations: The Federal rules restrict any use of the information to criminally investigate or prosecute any alcohol or drug abuse patient.[facility] Care Teams (unrecognized sec tion and content) Director Biostatistics Relationship Specialty Start Date End Date Laz Portillo MD [address] [place] [address] PCP - General Family Practice 06/24/18 Director Biostatistics Relationship Specialty Start Date End Date Laz Portillo MD [address] [place] [address] PCP - General Family Practice 06/24/18 Director Biostatistics Relationship Specialty Start Date End Date Laz Portillo MD [address] [place] [address] PCP - General Family Medicine 11/12/19 Director Biostatistics Relationship Specialty Start Date End Date Laz Portillo MD [address] [place] [address] PCP - General Family Medicine 06/24/18 Director Biostatistics Relationship Specialty Start Date End Date Laz Portillo MD [address] [place] [address] PCP - General Family Medicine 11/12/19 Director Biostatistics Relationship Specialty Start Date End Date Laz Portillo MD [address] [place] [address] PCP - General Family Medicine 06/24/18 Director Biostatistics Relationship Specialty Start Date End Date Laz Portillo MD [address] [place] [address] PCP - General Family Medicine 06/24/18 Director Biostatistics Relationship Specialty Start Date End Date Laz Portillo MD [address] [place] [address] PCP - General Family Medicine 06/24/18 Director Biostatistics Relationship Specialty Start Date End Date Laz Portillo MD [address] [place] [address] PCP - General Family Medicine 06/24/18 Director Biostatistics Relationship Specialty Start Date End Date Laz Portillo MD [address] [place] [address] PCP - General Family Medicine 06/24/18 Director Biostatistics Relationship Specialty Start Date End Date Laz Portillo MD [address] [place] [address] PCP - General Family Medicine 10/01/22 Director Biostatistics Relationship Specialty Start Date End Date Laz Portillo MD [address] [place] [address] PCP - General Family Medicine 10/01/22 Director Biostatistics Relationship Specialty Start Date End Date Laz Portillo MD [address] [place] [id number] PCP - General Family Medicine 10/01/22 Director Biostatistics Relationship Specialty Start Date End Date Laz Portillo MD [address] [place] [address] PCP - General Family Medicine 10/01/22 Director Biostatistics Relationship Specialty Start Date End Date Laz Portillo MD [address] [place] [address] PCP - General Family Medicine 10/01/22 Director Biostatistics Relationship Specialty Start Date End Date Laz Portillo MD [address] [place] [address] PCP - General Family Medicine 10/01/22 Director Biostatistics Relationship Specialty Start Date End Date Laz Portillo MD [address] [place] [address] PCP - General Family Medicine 10/01/22 Scheduled Active and Recently Administ ered Medications [...] surgery) 1213 (Given - Provid er: Sheila Bell, TORREY) Continuous Medication Order 07/10/2022 07/11/2022 07/12/2022 lactated [...] (BSS) ophthalmic solution (CANCELED) PRN, Starting on Hcayo 07/12/22 at 1347, Intra-op 1347 (Given - [...] intra-ocular kit (CANCELED) PRN, Starting on Chayo 3 at 1352, Until Chayo 3/23 at 1416, Intra-op 1352 (Given - Provid er: Josesito Basurto MD - Comment: ON BACK TABLE PER SURGEON REQUEST) ciprofloxacin (CILOXAN) 0.3 % ophthalmic solution 1 drop (COMPLETED) 1 drop, Left Eye, EVERY 5 MIN PRN, 3 doses, Starting on Chayo 3 at 1124, Until Chayo 323 at 1226, pre-op, To operative eye(s) for 3 doses, every 5 minutes, starting 20 minutes prior to surgery, Pre-op (day of surgery) 1216 (Given - Provid er: Sheila Bell RN)1221 (Given - Provider: Sheila Bell RN)1226 (Given - Provider: Sheila Bell RN) ciprofloxacin (CILOXAN) 0.3 % ophthalmic solution (CANCELED) PRN, Starting on Chayo 3 at 1413, Until Chayo 323 at 1416, [...] ONCE PRN, 1 dose, Starting on Chayo 3 at 1120, Until Chayo 3//23 at 1219, IV start, Pre-op (day of surgery) 1219 (Given - Provid er: Sheila Bell RN) lidocaine PF 4 % injection (CANCELED) PRN, Starting on Chayo 3 at 1347, Until Chayo 3/23 at 1416, Intra-op 1347 (Given - Provid er: Josesito Basurto MD - Comment: FOR BLOCK) rehjotil-ndycnkoya-eoxmopel ophthalmic ointment (CANCELED) PRN, Starting on Chayo 07/12/22 at 1413, Intra-op 1413 (Given - Provid er: Josesito Basurto MD) phenylephrine (MYDFRIN) 2.5 % ophthalmic solution 1 drop (COMPLETED) 1 drop, Left Eye, EVERY 5 MIN PRN, 3 doses, Starting on Chayo 3 at 1124, Until Chayo 3//23 at 1226, [...] ophthalmic suspension (CANCELED) PRN, Starting on Chayo 3 at 1413, Until Chayo 3//23 at 1416, Intra-op 1413 (Given - Provid er: Josesito Basurto MD) sodium chloride flush 0.9 % injection 5-40 mL 5-40 mL, IntraVENous, PRN, Starting on Chayo 3 at 1120, Until Discontinued, Line Care, After [...] minutes, starting 20 minutes prior to surgery, [facility] - enter number of doses based on [...] minutes, starting 20 minutes prior to surgery, h - enter number of doses based on [...] (NoRateChange - Provider: Pacheco Mckeon APRN - MECHANICAL ASSEMBLER) PRN Medication Order 08/14/2022 08/15/2022 08/16/2022 0.9 [...] Sat08/16/22 at 1434, Until Sat08/17/22 at 1434, Itching, [...] Josesito Basurto MD - Comment: PERIBULBAR BLOCK) gvmkctsj-yuzmxmzee-tgszbrwa ophthalmic ointment (CANCELED) PRN, Starting on Chayo [...] Action Action Date Dose Rate Site zoledronic pp-gaowdinq-4.9NaCl 4 mg iv piggyback 100 mL (ZOMETA) [...] BE BASED ON THE PRIMARY CLINICAL RECORDS. [email or web address] provides no warranty or guarantee of the accuracy or completeness of information in this document.
== END 2024-04-24 14:25 | disposition home or self-care (01) ==
LOC: CT 14:25
PROVIDERS: PCP Family Medicine; Visit Provider Internal Medicine
DX: R91.1 Solitary pulmonary nodule (principal)
CPT/HCPCS: 71250

== ENCOUNTER 2024-07-01 11:28 | Outpatient (OUT) | payer MEDICARE, SELFPAY ==
--- OUTSIDE RECORDS SUMMARY | 2024-07-01 11:52 | XMS_ITS | CCD ---
Author Organization [facility] Care Team Providers Care Loading Unit Operator Seating Name Role Phone TRIPP PORTILLO Unavailable Unavailable LAZ PORTILLO Unavailable Unavailabl TRIPP Herrera Unavailable Unavailable LAZ PORTILLO Unavailable Unavailabl Sulaiman Osorio Primary Care Provider [phone] Laz Portillo Primary Care Provider Laz Portillo [...] Care Unava ilable ALLYSSA LOPEZ Attending Unavailable ABHYANKRICHY, GATO Referring Unavailable ABHYANKAR, GATO Referring Unavailable RAGOTHAMAN, LAZ ABNER Primary Care Unava ilable RAGOTHAMAN, LAZ ABNER Primary Care Unava ilable ABHYANKAR, GATO Attending Unavailable RAGOTHAMAN, LAZ ABNER Primary Care Unava ilable ABHYANKAR, GATO Referring Unavailable RAGOTHAMAN, LAZ ABNER Primary Care Unava ilable ABHYANKAR, GATO Referring Unavailable RAGOTHAMAN, LAZ ABNER Primary Care Unava ilable ABHYANKAR, GATO Attending Unavailable ABHYANKRICHY, GATO Referring Unavailable Nicholas [facility] Provi jesus Laz Portillo MD [facility] Provider DESIREE BHAKTA Attending Unavailable DESIREE BHAKTA Attending [...] Drug Class(es) Dates Sig (Normalized) Sig (Original) [id number] 200 actuat albuterol 0.09 mg/actuat metered dose [...] in female, 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 180 tablet 3 07/20/2022 Active Comment on above: Take 1 tablet by [facility] twice daily. calcium chloride 0.0014 meq/ml [...] mg donepezil hydrochloride 10 mg oral tablet (20 sources) Start: 2023 take 1 tablet by [...] 1 drop latanoprost 0.05 mg/ml ophthalmic solution (20 sources) Prostaglandin Analog Start: 03-07-2022 take 1 drop(s) into the eye(s) in the evening latanoprost (Xalatan) 0.005 % ophthalmic solution INSTILL 1 DROP INTO EACH EYE IN THE EVENING DIRECTED 03/07/2022 Active lisinopril 40 mg oral tablet (20 sources) Angiotensin Converting Enzyme Inhibitor take 1 [...] 11/25/2020 12/25/2020 Active Multiple Vitamin (Multi-Vitamin) tablet (20 sources) Multiple Vitamin (Multi-Vitamin) tablet Take by [...] lidocaine PF 1 % injection 1 mL 1 ml methylPREDNISolone acetate 40 mg/ml injection (7 sources) Corticosteroid Start: 02-03-2024 End: 02-03-2024 methylPREDNISolone acetate (DEPO-Medrol) injection 40 mg Start: 02-03-2024 End: 02-03-2024 40 mg, Intra-articular, Once PRN Procedure, Starting on Sat02/03/24 at 1408, For 1 dose Start: 10-01-2022 End: 01-20-2024 methylPREDNISolone (Medrol D ospak) 4 MG tablets Indications: Right hand pain Follow schedule on package instructions, ( 6 days) Take with food 21 tablet 10/01/2022 01/20/2024 Discontinued (Therapy completed) Start: 10-01-2022 methylPREDNISo lone (Medrol Dospak) 4 MG tablets Indications: Right hand pain Follow schedule on package instructions, ( 6 days) Take with food 21 tablet 10/01/2022 Active 24 hr metoprolol succinate 25 mg extended [...] Documented Da te Episodic/Chronic Acute cerebrovascular disease (20 sources) Lacunar infarction; Translations: [Other cerebral infarction due to occlusion or stenosis of small artery] Onset: 08-07-2023 10-31-2023 Chronic Asthma (20 sources) Severe persistent asthma, uncomplicated; Translations: [Uncomplicated [...] 01-23-2013 01-23-2013 Chronic Fracture of lower limb (12 sources) Nondisplaced fracture of third metatarsal bone, left foot, initial encounter for closed fracture; Translations: [Nondisplaced fracture of fourth metatarsal bone, left foot, initial encounter for closed fracture] Onset: 01-30-2022 02-24-2024 Episodic Malaise and fatigue (2 sources) Fatigue; Translations: [Other fatigue] Episodic Mood disorders (20 sources) Depressive disorder; Translations: [Major depressive disorder, single episode, unspecified] Onset: 01-23-2013 01-23-2013 Chronic Osteoarthritis (4 sources) Osteoarthritis of right knee joint; Translations: [Unilateral primary osteoarthritis, right knee] 01-20-2024 Chronic Other connective tissue disease (1 source) Swelling of limb; Translations: [Swelling of limb] Episodic Other hereditary and degenerative nervous system conditions (20 sources) Hereditary essential tremor; Translations: [Essential tremor] Onset: 08-07-2023 10-31-2023 Chronic Other hereditary and degenerative nervous system conditions (20 sources) Mild cognitive impairment, so stated; Translations: [...] Date Documented Da te Episodic/Chronic Abdominal pain (20 sources) Left lower quadrant pain; Translations: [Left lower quadrant pain] Onset: 4 10-31-2023 Episodic Acute bronchitis (20 sources) Acute bronchitis; Translations: [Acute bronchitis, unspecified] Onset: 3 10-31-2023 Episodic E Codes: Struck by; against (20 sources) Striking against or struck by other objects, initial encounter; Translations: [Other accident caused by striking against or being struck accidentally by objects or persons] Onset: 2 10-31-2023 Episodic Genitourinary symptoms and ill-defined conditions (20 sources) Dark yellow urine; Translations: [Other symptoms [...] Onset: 2 Episodic Other connective tissue disease (20 sources) Pain in left foot; Translations: [Pain in left foot] Onset: 2 10-31-2023 Episodic Other gastrointestinal disorders (20 sources) H/O: gastrointestinal disease; Translations: [Personal history of other diseases of the digestive system] Onset: 4 10-31-2023 Episodic Other lower respiratory disease (20 sources) Chronic cough; Translations: [Chronic cough] Onset: 3 10-31-2023 Episodic Other lower respiratory disease (20 sources) Solitary nodule of lung; Translations: [Solitary pulmonary nodule] Onset: 4 10-31-2023 Episodic Other non-traumatic joint disorders (20 sources) Pain in right knee; Translations: [Pain in joint, lower leg] Onset: 4 10-31-2023 Episodic Other upper respiratory infections (20 sources) Acute sinusitis, unspecified; Translations: [Acute sinusitis] Onset: 4 Episodic Residual codes; unclassified (2 sources) Estrogen receptor positive status [ER+]; Translations: [ESTROGEN RECEPTOR POSITIVE STATUS] Onset: 9 Episodic Residual codes; unclassified (20 sources) Estrogen receptor positive tumor; Translations: [Estrogen receptor positive status [ER+]] Onset: 3 10-31-2023 Episodic Unclassified (1 source) Contact with and (suspected) exposure to covid-19 Z20.822 Unclassified (1 source) Mild cognitive impairment with memory loss 03-09-2024 Results Test Name Value Interpretation Reference Range Facility XR Ankle - left 3 [facility] Result: 05/21/2024: AP lateral and mortise view of left ankle showed a significant increase in callus formation to the distal fibular fracture compared to prior x-rays. Talus is well centered in the talar dome and ankle mortise was well preserved without instability. There was no acute bony process including but not limited to displacement of current fracture and/or fracture. Impression: Healing fracture left distal fibula Clementina Ramos APRNSTITCHER AROUND [facility] Study observation (narrative) [facility] XR Ankle - left 3 [facility] Result: 04/23/2024: AP lateral and mortise view of left ankle showed a significant increase in callus formation to the distal fibular fracture compared to prior x-rays. Talus is well centered in the talar dome and ankle mortise was well preserved without instability. There was no acute bony process including but not limited to displacement of current fracture and/or fracture. Impression: Healing fracture left distal fibula [facility] (narrative[facility] XR Ankle - left 3 [facility] [...] Healing fracture left distal fibula Clementina Ramos GENERAL FREIGHT AGENT-STITCHER AROUND [facility] XR Ankle - left 3 ViewsOrder ed By: Jr. Guaman on 03-25-2024 [facility] Work Phone: XR Ankle - left 3 [facility] Study observation (narrative) [facility] XR Ankle - left 3 [facility] Imaging Result: 03/03/2024: AP, LAT and Oblique of left ankle demonstrate nondisplaced distal fibula fracture in stable position and alignment within fiberglass cast. She is noted to have baseline osteoarthritis of the left ankle. 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 Consent was given by the patient. [facility] XR Knee - right 1 or 2 Views on 01-20-2024 Imaging Result: X-rays AP and lateral of right knee showed severe varus deformity with knut-zp-lvrq articulation to the medial joint line. There is flattening of the articular surfaces medially to the tibia plateau and femoral condyle. There is marginal osteophytic formation and subchondral sclerosis noted medially and the patellofemoral joint. There is no evidence of fracture or dislocation. Bony structures viewed showed appropriate ossification. [facility] Study observation (narrative) [facility] CBC W Auto Differential pane l (Bld)on 07-19-2023 Basophils (Bld) [#/Vol] 0.04 10*3/uL Normal <0.11 [facility] Comment on above: Order Comment: Speci men Type: BLOOD SPECIMEN Ordering Facility: [facility] Address: [address] [place] [address] Performed By: #### 5 7021-8 #### [facility] CLIA [id number] [address] [place] [address] 27212 Basophils/100 WBC (Bld) 0.5 % Normal [facility] Comment on above: Order Comment: Speci men Type: BLOOD SPECIMEN Ordering Facility: [facility] Address: [address] [place] [address] Performed By: #### 5 7021-8 #### [facility] CLIA [id number] [address] [place] [address] 34421 Differential cell count method Nom (Bld) Auto Normal [facility] Comment on above: Order Comment: Speci men Type: BLOOD SPECIMEN Ordering Facility: [facility] Address: [address] [place] [address] Performed By: #### 5 7021-8 #### [facility] CLIA [id number] [address] [place] [address] 61692 Eosinophils (Bld) [#/Vol] 0.45 10*3/uL Normal <0.46 [facility] Comment on above: Order Comment: Speci men Type: BLOOD SPECIMEN Ordering Facility: [facility] Address: [address] [place] [address] Performed By: #### 5 7021-8 #### [facility] CLIA [id number] [address] [place] [address] 17691 Eosinophils/100 WBC (Bld) 5.8 % Normal [facility] Comment on above: Order Comment: Speci men Type: BLOOD SPECIMEN Ordering Facility: [facility] Address: [address] [place] [address] 12571 Performed By: #### 5 7021-8 #### [facility] CLIA [id number] [address] [place] [address] 24254 Erythrocyte distribution width (RBC) [Ratio] 12.9 % Normal 11.5-15.0 [facility] Comment on above: Order Comment: Speci men Type: BLOOD SPECIMEN Ordering Facility: [facility] Address: [address] [place] [address] Performed By: #### 5 7021-8 #### [facility] CLIA [id number] [address] [place] [address] 41874 Hematocrit (Bld) [Volume fraction] 41.6 % Normal 36.0-46.0 [facility] Comment on above: Order Comment: Speci men Type: BLOOD SPECIMEN Ordering Facility: [facility] Address: [address] [place] [address] Performed By: #### 5 7021-8 #### [facility] CLIA [id number] [address] [place] [address] 28317 Hemoglobin (Bld) [Mass/Vol] 13.7 g/dL Normal 11.5-15.5 [facility] Comment on above: Order Comment: Speci men Type: BLOOD SPECIMEN Ordering Facility: [facility] Address: [address] [place] [address] Performed By: #### 5 7021-8 #### [facility] CLIA [id number] [address] [place] [address] 64012 Immature granulocytes (Bld) [#/Vol] 10*3/uL Normal <0.10 [facility] Comment on above: Order Comment: Speci men Type: BLOOD SPECIMEN Ordering Facility: [facility] Address: [address] [place] [address] Performed By: #### 5 7021-8 #### [facility] CLIA [id number] [address] [place] [address] 97038 Immature granulocytes/100 WBC (Bld) 0.1 % Normal [facility] Comment on above: Order Comment: Speci men Type: BLOOD SPECIMEN Ordering Facility: [facility] Address: [address] [place] [address] Performed By: #### 5 7021-8 #### [facility] CLIA [id number] [address] [place] [address] 43767 Lymphocytes (Bld) [#/Vol] 1.94 10*3/uL Normal 1.00-4.00 [facility] Comment on above: Order Comment: Speci men Type: BLOOD SPECIMEN Ordering Facility: [facility] Address: [address] [place] [address] 52675 Performed By: #### 5 7021-8 #### [facility] CLIA [id number] [address] [place] [address] 19306 Lymphocytes/100 WBC (Bld) 25.0 % Normal [facility] Comment on above: Order Comment: Speci men Type: BLOOD SPECIMEN Ordering Facility: [facility] Address: [address] [place] [address] 20143 Performed By: #### 5 7021-8 #### [facility] CLIA [id number] [address] [place] [address] 13231 MCH (RBC) [Entitic mass] 28.8 pg Normal 26.0-34.0 [facility] Comment on above: Order Comment: Speci men Type: BLOOD SPECIMEN Ordering Facility: [facility] Address: [address] [place] [address] 12670 Performed By: #### 5 7021-8 #### [facility] CLIA [id number] [address] [place] [address] 36098 MCHC (RBC) [Mass/Vol] 32.9 g/dL Normal 30.5-36.0 [facility] Comment on above: Order Comment: Speci men Type: BLOOD SPECIMEN Ordering Facility: [facility] Address: [address] [place] [address] 18693 Performed By: #### 5 7021-8 #### [facility] CLIA [id number] [address] [place] [address] 88954 MCV (RBC) [Entitic vol] 87.6 fL Normal 80.0-100.0 [facility] Comment on above: Order Comment: Speci men Type: BLOOD SPECIMEN Ordering Facility: [facility] Address: [address] [place] [address] Performed By: #### 5 7021-8 #### [facility] CLIA [id number] [address] [place] [address] 18393 Monocytes (Bld) [#/Vol] 0.40 10*3/uL Normal <0.87 [facility] Comment on above: Order Comment: Speci men Type: BLOOD SPECIMEN Ordering Facility: [facility] Address: [address] [place] [address] Performed By: #### 5 7021-8 #### [facility] CLIA [id number] [address] [place] [address] 04500 Monocytes/100 WBC (Bld) 5.1 % Normal [facility] Comment on above: Order Comment: Speci men Type: BLOOD SPECIMEN Ordering Facility: [facility] Address: [address] [place] [address] Performed By: #### 5 7021-8 #### [facility] CLIA [id number] [address] [place] [address] 74120 Neutrophils (Bld) [#/Vol] 4.93 10*3/uL Normal 1.45-7.50 [facility] Comment on above: Order Comment: Speci men Type: BLOOD SPECIMEN Ordering Facility: [facility] Address: [address] [place] [address] 38029 Performed By: #### 5 7021-8 #### [facility] CLIA [id number] [address] [place] [address] 95927 Neutrophils/100 WBC (Bld) 63.5 % Normal [facility] Comment on above: Order Comment: Speci men Type: BLOOD SPECIMEN Ordering Facility: [facility] Address: [address] [place] [address] Performed By: #### 5 7021-8 #### [facility] CLIA [id number] [address] [place] [address] Nucleated RBC (Bld) [#/Vol] 10*3/uL Normal <0.01 [facility] Comment on above: Order Comment: Speci men Type: BLOOD SPECIMEN Ordering Facility: [facility] Address: [address] [place] [address] Performed By: #### 5 7021-8 #### [facility] CLIA [id number] [address] [place] [address] 42122 Nucleated RBC/100 WBC (Bld) [Ratio] 0.0 /100 WBC Normal [facility] Comment on above: Order Comment: Speci men Type: BLOOD SPECIMEN Ordering Facility: [facility] Address: [address] [place] [address] Performed By: #### 5 7021-8 #### [facility] CLIA [id number] [address] [place] [address] 34142 Platelet mean volume (Bld) [Entitic vol] 9.6 fL Normal 9.0-12.7 [facility] Comment on above: Order Comment: Speci men Type: BLOOD SPECIMEN Ordering Facility: [facility] Address: [address] [place] [address] Performed By: #### 5 7021-8 #### [facility] CLIA [id number] [address] [place] [address] 90951 Platelets (Bld) [#/Vol] 216 10*3/uL Normal 150-400 [facility] Comment on above: Order Comment: Speci men Type: BLOOD SPECIMEN Ordering Facility: [facility] Address: [address] [place] [address] 66625 Performed By: #### 5 7021-8 #### [facility] CLIA [id number] [address] [place] [address] RBC (Bld) [#/Vol] 4.75 10*6/uL Normal 3.90-5.20 [facility] Comment on above: Order Comment: Speci men Type: BLOOD SPECIMEN Ordering Facility: [facility] Address: [address] [place] [address] Performed By: #### 5 7021-8 #### [facility] CLIA [id number] [address] [place] [address] 34868 WBC (Bld) [#/Vol] 7.77 10*3/uL Normal 3.70-11.00 [facility] Comment on above: Order Comment: Speci men Type: BLOOD SPECIMEN Ordering Facility: [facility] Address: [address] [place] [address] Performed By: #### 5 7021-8 #### [facility] CLIA [id number] [address] [place] [address] 20499 CNOVSPon 07-19-2023 CNOVSP Visit (SP) Office ([place]) -------- NATASHA RIBEIRO ([id number]) 1950 F Date Time Provider Department 07/19/23 10:30 AM GATO CANO During your visit today, we recorded the following information about you: Temperature Pulse Respiration Blood pressure 97.1 degrees 69/minute 18/minute 134/66 Weight 74.9 kg Gato Cano MD 07/20/2023 1:40 PM Signed NAME: Natasha Ribeiro CLINIC NO.: [id number] DATE OF SERVICE: July 19, 2023 ([place]) [...] PALB2 mutation of unclear significance identified on [employer] genetic analysis 07/08/2018. Per medical genetics [...] as return. Continue Vit D and Calcium kevx-tiq-dlwisey. - HPI: CASE HISTORY: Reverse Chronological Order 07/04/2023 - Bilateral Diagnostic Mammogram: ([place]) Findings: Diagnostic category 2--benign findings. 07/03/2022 - Bilateral diagnostic mammogram ([place]) Findings: Diagnostic category 2--benign findings. 03/03/2021 - DEXA scan ([place]) Osteopenic. 03/03/2021 - Bilateral diagnostic mammogram ([place]) Findings: Diagnostic category-benign findings. 03/02/2020 - Bilateral Diagnostic Mammogram ([place]) Findings: Diagnostic category 2-benign findings. 07/28/2018 [facility] Normal. Updated Visit, July 19, 2023: Doing [...] she would lose coverage here at [facility]. Lost her last August 2021 He [...] September 14 (more content not included)... Normal [facility] metabolic 2000 panelon 03-08-2024 Albumin [Mass/Vol] 4.5 g/dL Normal 3.9-4.[address] [facility] Comment on above: Order Comment: Speci men Type: BLOOD SPECIMEN Ordering Facility: [facility] Address: [address] [place] [id number] Performed By: #### 2 4323-8 #### [facility] CLIA [id number] [address] [place] [address] ALP [Catalytic activity/Vol] 57 U/L Normal 34-123 [facility] Comment on above: Order Comment: Speci men Type: BLOOD SPECIMEN Ordering Facility: [facility] Address: [address] [place] [address] Performed By: #### 2 4323-8 #### [facility] CLIA [id number] [address] [place] [address] 29689 ALT [Catalytic activity/Vol] 26 U/L Normal 7-38 [facility] Comment on above: Order Comment: Speci men Type: BLOOD SPECIMEN Ordering Facility: [facility] Address: [address] [place] [address] Performed By: #### 2 4323-8 #### [facility] CLIA [id number] [address] [place] [address] 98541 Anion gap [Moles/Vol] 10 mmol/L Normal 9-18 [facility] Comment on above: Order Comment: Speci men Type: BLOOD SPECIMEN Ordering Facility: [facility] Address: [address] [place] [address] Performed By: #### 2 4323-8 #### [facility] CLIA [id number] [address] [place] [address] 45376 AST [Catalytic activity/Vol] 23 U/L Normal 13-35 [facility] Comment on above: Order Comment: Speci men Type: BLOOD SPECIMEN Ordering Facility: [facility] Address: [address] [place] [address] Performed By: #### 2 4323-8 #### [facility] CLIA [id number] [address] [place] [address] Bilirubin [Mass/Vol] 1.1 mg/dL Normal 0.2-1.3 [facility] Comment on above: Order Comment: Speci men Type: BLOOD SPECIMEN Ordering Facility: [facility] Address: [address] [place] [address] Performed By: #### 2 4323-8 #### [facility] CLIA [id number] [address] [place] [address] Calcium [Mass/Vol] 10.3 mg/dL High 8.5-10.[address] [facility] Comment on above: Order Comment: Speci men Type: BLOOD SPECIMEN Ordering Facility: [facility] Address: [address] [place] [address] Performed By: #### 2 4323-8 #### [facility] CLIA [id number] [address] [place] [address] Chloride [Moles/Vol] 103 mmol/L Normal 97-105 [facility] Comment on above: Order Comment: Speci men Type: BLOOD SPECIMEN Ordering Facility: [facility] Address: [address] [place] [address] Performed By: #### 2 4323-8 #### [facility] CLIA [id number] [address] [place] [address] CO2 [Moles/Vol] 28 mmol/L Normal 22-30 [facility] Comment on above: Order Comment: Speci men Type: BLOOD SPECIMEN Ordering Facility: [facility] Address: [address] [place] [address] Performed By: #### 2 4323-8 #### [facility] CLIA [id number] [address] [place] [address] Creatinine [Mass/Vol] 0.78 mg/dL Normal 0.58-0.96 [facility] Comment on above: Order Comment: Speci men Type: BLOOD SPECIMEN Ordering Facility: [facility] Address: [address] [place], [place] [address] Performed By: #### 2 4323-8 #### [facility] CLIA [id number] [address] [place] [address] 88393 Creatinine and Glomerular filtration rate.predicted panel (S/P/Bld) 79 mL/min/1.73m??? Normal >=60 [facility] Comment on above: Order Comment: Vicky baron Type: BLOOD SPECIMEN Ordering Facility: [facility] Address: [address] [place] [address] Result Comment: Dara mated Glomerular Filtration Rate [...] GFR. Performed By: #### 2 4323-8 #### [facility] CLIA [id number] [address] [place] [address] 25511 Glucose [Mass/Vol] 85 mg/dL Normal 74-[address] [facility] Comment on above: Order Comment: Vicky baron Type: BLOOD SPECIMEN Ordering Facility: [facility] Address: [address] [place] [address] Result Comment: The [place] Diabetes Association (ADA) provides guidance for cutoff [...] Standards of Medical Care in Diabetes 2016, [place] [employer]. Diabetes Care. 2016.39(Suppl 1). Performed By: #### 2 4323-8 #### [facility] CLIA [id number] [address] [place] [address] 95645 Potassium [Moles/Vol] 4.8 mmol/L Normal 3.7-5.1 [facility] Comment on above: Order Comment: Speci men Type: BLOOD SPECIMEN Ordering Facility: [facility] Address: [address] [place] [address] Performed By: #### 2 4323-8 #### [facility] CLIA [id number] [address] [place] [address] 42882 Protein [Mass/Vol] 7.3 g/dL Normal 6.3-8.[address] [facility] Comment on above: Order Comment: Speci men Type: BLOOD SPECIMEN Ordering Facility: [facility] Address: [address] [place] [address] Performed By: #### 2 4323-8 #### [facility] CLIA [id number] [address] [place] [address] 23778 Sodium [Moles/Vol] 141 mmol/L Normal 136-[address] [facility] Comment on above: Order Comment: Speci men Type: BLOOD SPECIMEN Ordering Facility: [facility] Address: [address] [place] [address] Performed By: #### 2 4323-8 #### [facility] CLIA [id number] [address] [place] [address] 28638 Urea nitrogen [Mass/Vol] 21 mg/dL Normal 7-21 [facility] Comment on above: Order Comment: Speci men Type: BLOOD SPECIMEN Ordering Facility: [facility] Address: [address] [place] [address] Performed By: #### 2 4323-8 #### [facility] CLIA [id number] [address] [place] [address] 58686 CBC W Auto Differential pane l (Bld)on 01-11-2023 Basophils (Bld) [#/Vol] 0.05 10*3/uL Normal <0.11 [facility] Comment on above: Order Comment: Speci men Type: BLOOD SPECIMEN Ordering Facility: [facility] Address: [address] [address] Performed By: #### 5 7021-8 #### [facility] CLIA [id number] [address] [place] [address] 28956 Basophils/100 WBC (Bld) 0.7 % Normal [facility] Comment on above: Order Comment: Speci men Type: BLOOD SPECIMEN Ordering Facility: [facility] Address: [address] [address] Performed By: #### 5 7021-8 #### [facility] CLIA [id number] [address] [place] [address] 16716 Differential cell count method Nom (Bld) Auto Normal [facility] Comment on above: Order Comment: Speci men Type: BLOOD SPECIMEN Ordering Facility: [facility] Address: [address] [address] Performed By: #### 5 7021-8 #### [facility] CLIA [id number] [address] [place] [address] 11783 Eosinophils (Bld) [#/Vol] 0.50 10*3/uL High <0.46 [facility] Comment on above: Order Comment: Speci men Type: BLOOD SPECIMEN Ordering Facility: [facility] Address: [address] [address] Performed By: #### 5 7021-8 #### [facility] CLIA [id number] [address] [place] [address] 25927 Eosinophils/100 WBC (Bld) 7.4 % Normal [facility] Comment on above: Order Comment: Speci men Type: BLOOD SPECIMEN Ordering Facility: [facility] Address: [address] [address] Performed By: #### 5 7021-8 #### [facility] CLIA [id number] [address] [place] [address] 57103 Erythrocyte distribution width (RBC) [Ratio] 12.8 % Normal 11.5-15.0 [facility] Comment on above: Order Comment: Speci men Type: BLOOD SPECIMEN Ordering Facility: [facility] Address: [address] [address] Performed By: #### 5 7021-8 #### [facility] CLIA [id number] [address] [place] [address] 67374 Hematocrit (Bld) [Volume fraction] 36.8 % Normal 36.0-46.0 [facility] Comment on above: Order Comment: Speci men Type: BLOOD SPECIMEN Ordering Facility: [facility] Address: [address] [address] Performed By: #### 5 7021-8 #### [facility] CLIA [id number] [address] [place] [address] 70441 Hemoglobin (Bld) [Mass/Vol] 12.1 g/dL Normal 11.5-15.5 [facility] Comment on above: Order Comment: Speci men Type: BLOOD SPECIMEN Ordering Facility: [facility] Address: [address] [address] Performed By: #### 5 7021-8 #### [facility] CLIA [id number] [address] [place] [address] 70434 Immature granulocytes (Bld) [#/Vol] 10*3/uL Normal <0.10 [facility] Comment on above: Order Comment: Speci men Type: BLOOD SPECIMEN Ordering Facility: [facility] Address: [address] [address] Performed By: #### 5 7021-8 #### [facility] CLIA [id number] [address] [place] [address] 23510 Immature granulocytes/100 WBC (Bld) 0.1 % Normal [facility] Comment on above: Order Comment: Speci men Type: BLOOD SPECIMEN Ordering Facility: [facility] Address: [address] [address] Performed By: #### 5 7021-8 #### [facility] CLIA [id number] [address] [place] [address] 00003 Lymphocytes (Bld) [#/Vol] 1.84 10*3/uL Normal 1.00-4.00 [facility] Comment on above: Order Comment: Speci men Type: BLOOD SPECIMEN Ordering Facility: [facility] Address: [address] [address] Performed By: #### 5 7021-8 #### [facility] CLIA [id number] [address] [place] [address] 89138 Lymphocytes/100 WBC (Bld) 27.3 % Normal [facility] Comment on above: Order Comment: Speci men Type: BLOOD SPECIMEN Ordering Facility: [facility] Address: [address] [address] Performed By: #### 5 7021-8 #### [facility] CLIA [id number] [address] [place] [address] 45632 MCH (RBC) [Entitic mass] 28.7 pg Normal 26.0-34.0 [facility] Comment on above: Order Comment: Speci men Type: BLOOD SPECIMEN Ordering Facility: [facility] Address: [address] [address] Performed By: #### 5 7021-8 #### [facility] CLIA [id number] [address] [place] [address] 14804 MCHC (RBC) [Mass/Vol] 32.9 g/dL Normal 30.5-36.0 [facility] Comment on above: Order Comment: Speci men Type: BLOOD SPECIMEN Ordering Facility: [facility] Address: [address] [address] Performed By: #### 5 7021-8 #### [facility] CLIA [id number] [address] [place] [address] 99184 MCV (RBC) [Entitic vol] 87.4 fL Normal 80.0-100.0 [facility] Comment on above: Order Comment: Speci men Type: BLOOD SPECIMEN Ordering Facility: [facility] Address: [address] [address] Performed By: #### 5 7021-8 #### [facility] CLIA [id number] [address] [place] [address] Monocytes (Bld) [#/Vol] 0.44 10*3/uL Normal <0.87 [facility] Comment on above: Order Comment: Speci men Type: BLOOD SPECIMEN Ordering Facility: [facility] Address: [address] [address] Performed By: #### 5 7021-8 #### [facility] CLIA [id number] [address] [place] [address] 70767 Monocytes/100 WBC (Bld) 6.5 % Normal [facility] Comment on above: Order Comment: Speci men Type: BLOOD SPECIMEN Ordering Facility: [facility] Address: [address] [place] [address] Performed By: #### 5 7021-8 #### [facility] CLIA [id number] [address] [place] [address] 89830 Neutrophils (Bld) [#/Vol] 3.89 10*3/uL Normal 1.45-7.50 [facility] Comment on above: Order Comment: Speci men Type: BLOOD SPECIMEN Ordering Facility: [facility] Address: [address] [place] [address] Performed By: #### 5 7021-8 #### [facility] CLIA [id number] [address] [place] [address] 63721 Neutrophils/100 WBC (Bld) 58.0 % Normal [facility] Comment on above: Order Comment: Speci men Type: BLOOD SPECIMEN Ordering Facility: [facility] Address: [address] [place] [address] Performed By: #### 5 7021-8 #### [facility] CLIA [id number] [address] [place] [address] 12732 Nucleated RBC (Bld) [#/Vol] 10*3/uL Normal <0.01 [facility] Comment on above: Order Comment: Speci men Type: BLOOD SPECIMEN Ordering Facility: [facility] Address: [address] [address] Performed By: #### 5 7021-8 #### [facility] CLIA [id number] [address] [place] [address] 99616 Nucleated RBC/100 WBC (Bld) [Ratio] 0.0 /100 WBC Normal [facility] Comment on above: Order Comment: Speci men Type: BLOOD SPECIMEN Ordering Facility: [facility] Address: [address] [address] Performed By: #### 5 7021-8 #### [facility] CLIA [id number] [address] [place] [address] 37703 Platelet mean volume (Bld) [Entitic vol] 9.6 fL Normal 9.0-12.7 [facility] Comment on above: Order Comment: Speci men Type: BLOOD SPECIMEN Ordering Facility: [facility] Address: [address] [address] Performed By: #### 5 7021-8 #### [facility] CLIA [id number] [address] [place] [address] 03432 Platelets (Bld) [#/Vol] 226 10*3/uL Normal 150-400 [facility] Comment on above: Order Comment: Speci men Type: BLOOD SPECIMEN Ordering Facility: [facility] Address: [address] [address] Performed By: #### 5 7021-8 #### [facility] CLIA [id number] [address] [place] [address] 11776 RBC (Bld) [#/Vol] 4.21 10*6/uL Normal 3.90-5.20 [facility] Comment on above: Order Comment: Speci men Type: BLOOD SPECIMEN Ordering Facility: [facility] Address: [address] [address] Performed By: #### 5 7021-8 #### [facility] CLIA [id number] [address] [place] [address] 67243 WBC (Bld) [#/Vol] 6.73 10*3/uL Normal 3.70-11.00 [facility] Comment on above: Order Comment: Speci men Type: BLOOD SPECIMEN Ordering Facility: [facility] Address: [place] [address] Performed By: #### 5 7021-8 #### [facility] CLIA [id number] [address] [place] [address] CNOVSPon 01-11-2023 CNOVSP Visit (SP) Office ([place]) -------- NATASHA RIBEIRO ([id number]) 1950 F Date Time Provider Department 01/11/23 2:00 PM ALLYSSA LOPEZ During your visit today, we recorded the following information about you: Temperature Pulse Respiration Blood pressure 97.7 degrees 75/minute 16/minute 125/59 Weight Height 73.8 kg 1.613 m Allyssa Lopez APRN.STITCHER AROUND 01/11/2023 3:21 PM Signed PATIENT NAME: Natasha [...] as return. Continue Vit D and Calcium nfxf-gvw-doldhhr. INTERIM HISTORY: Updated Visit, January 11, 2023: [...] she would lose coverage here at [facility]. Lost her last August 2021 He [...] currently on arimidex. 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 This weighs heavily on her. Screening Mammography completed (more content not included)... Normal [facility] Comprehensive metabolic 2000 panelon 01-11-2023 Albumin [Mass/Vol] 4.4 g/dL Normal 3.9-4.[address] [facility] Comment on above: Order Comment: Vicky baron Type: BLOOD SPECIMEN Ordering Facility: [facility] Address: [address] [place] [address] Performed By: #### 2 4323-8 #### [facility] CLIA [id number] [address] [place] [address] 79258 ALP [Catalytic activity/Vol] 63 U/L Normal 34-123 [facility] Comment on above: Order Comment: Speci men Type: BLOOD SPECIMEN Ordering Facility: [facility] Address: [address] [address] Performed By: #### 2 4323-8 #### [facility] CLIA [id number] [address] [place] [address] ALT [Catalytic activity/Vol] 17 U/L Normal 7-38 [facility] Comment on above: Order Comment: Speci men Type: BLOOD SPECIMEN Ordering Facility: [facility] Address: [address] [address] Performed By: #### 2 432-8 #### [facility] CLIA [id number] [address] [place] [address] 37482 Anion gap [Moles/Vol] 9 mmol/L Normal 9-18 [facility] Comment on above: Order Comment: Speci men Type: BLOOD SPECIMEN Ordering Facility: [facility] Address: [address] [address] Performed By: #### 2 432-8 #### [facility] CLIA [id number] [address] [place] [address] 66054 AST [Catalytic activity/Vol] 17 U/L Normal 13-35 [facility] Comment on above: Order Comment: Speci men Type: BLOOD SPECIMEN Ordering Facility: [facility] Address: [address] [address] Performed By: #### 2 4323-8 #### [facility] CLIA [id number] [address] [place] [address] 37403 Bilirubin [Mass/Vol] 1.0 mg/dL Normal 0.2-1.3 [facility] Comment on above: Order Comment: Speci men Type: BLOOD SPECIMEN Ordering Facility: [facility] Address: [address] [address] Performed By: #### 2 4323-8 #### [facility] CLIA [id number] [address] [place] [address] 03450 Calcium [Mass/Vol] 9.8 mg/dL Normal 8.5-10.[address] [facility] Comment on above: Order Comment: Speci men Type: BLOOD SPECIMEN Ordering Facility: [facility] Address: [address] [address] Performed By: #### 2 4323-8 #### [facility] CLIA [id number] [address] [place] [address] 28256 Chloride [Moles/Vol] 103 mmol/L Normal 97-105 [facility] Comment on above: Order Comment: Speci men Type: BLOOD SPECIMEN Ordering Facility: [facility] Address: [address] [address] Performed By: #### 2 4323-8 #### [facility] CLIA [id number] [address] [place] [address] 26851 CO2 [Moles/Vol] 28 mmol/L Normal 22-30 [facility] Comment on above: Order Comment: Speci men Type: BLOOD SPECIMEN Ordering Facility: [facility] Address: [address] [address] Performed By: #### 2 4323-8 #### [facility] CLIA [id number] [address] [place] [address] 89025 Creatinine [Mass/Vol] 0.80 mg/dL Normal 0.58-0.96 [facility] Comment on above: Order Comment: Speci men Type: BLOOD SPECIMEN Ordering Facility: [facility] Address: [address] [address] Performed By: #### 2 4323-8 #### [facility] CLIA [id number] [address] [place] [address] 66050 Creatinine and Glomerular filtration rate.predicted panel (S/P/Bld) 77 mL/min/1.73m??? Normal >=60 [facility] Comment on above: Order Comment: Speci men Type: BLOOD SPECIMEN Ordering Facility: [facility] Address: [address] [place] [address] Result Comment: Dara mated Glomerular Filtration Rate [...] GFR. Performed By: #### 2 4323-8 #### [facility] CLIA [id number] [address] [place] [address] 15547 Glucose [Mass/Vol] 104 mg/dL High 74-[address] [facility] Comment on above: Order Comment: Speci men Type: BLOOD SPECIMEN Ordering Facility: [facility] Address: [place] [address] Result Comment: The [place] Diabetes Association (ADA) provides guidance for cutoff [...] Standards of Medical Care in Diabetes 2016, [place] [employer]. Diabetes Care. 2016.39(Suppl 1). Performed By: #### 2 4323-8 #### [facility] CLIA [id number] [address] [place] [address] 45326 Potassium [Moles/Vol] 4.3 mmol/L Normal 3.7-5.1 [facility] Comment on above: Order Comment: Speci men Type: BLOOD SPECIMEN Ordering Facility: [facility] Address: [address] [place] [address] Performed By: #### 2 4323-8 #### [facility] CLIA [id number] [address] [place] [address] Protein [Mass/Vol] 6.7 g/dL Normal 6.3-8.[address] [facility] Comment on above: Order Comment: Speci men Type: BLOOD SPECIMEN Ordering Facility: [facility] Address: [address] [address] Performed By: #### 2 4323-8 #### [facility] CLIA [id number] [address] [place] [address] Sodium [Moles/Vol] 140 mmol/L Normal 136-[address] [facility] Comment on above: Order Comment: Speci men Type: BLOOD SPECIMEN Ordering Facility: [facility] Address: [address] [address] Performed By: #### 2 4323-8 #### [facility] CLIA [id number] [address] [place], [place] [address] Urea nitrogen [Mass/Vol] 18 mg/dL Normal 7-21 [facility] Comment on above: Order Comment: Speci men Type: BLOOD SPECIMEN Ordering Facility: [facility] Address: [address] [address] Performed By: #### 2 4323-8 #### [facility] CLIA [id number] [address] [place], [place] [address] CNOVSPon 07-20-2022 CNOVS Visit (SP) Office ([place]AS[place]) -------- DENISNATASHA HERRING ([id number]) 1950 F Date Time Provider Department 07/20/22 [...] she would lose coverage here at [facility]. Lost her last August 2021 He [...] currently on arimidex. 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 Normal [facility] MG MAMM LUIS M DIAG W CADon MG MAMM LUIS M DIAG W CAD Patient: NU RIBEIRO Exam Date: 07/03/2022 : 1950 Gender:F Ordering : DR ALLYSSA LOPEZ [facility] Admission #: [id number] Family : Order #: [id number] CLICK HERE TO VIEW EXAM RADIOLOGY REPORT [...] Treatments None Family Cancers None LOCATION: [facility] BREAST COMPOSITION: Scattered areas fibroglandular density. [...] Mitchell M.D. on 07/03/2022 at 15:24 Normal [facility] COVID/FLU/RSV RT-PCRon 05-30 SARS-CoV-2 (COVID-19) RNA DARIUS+probe Ql (Unsp spec) Negative [employer] Other COVID/FLU/RSV RT-PCR Negative [facility] [employer] Other HEMOGLOBINon 02-20-2022 Hemoglobin (Bld) [Mass/Vol] 12.8 g/dL Normal 12.0-16.0 [facility] Comment on above: Performed By: #### H GB #### [facility] [address] [place] [address] Dr. Vinicius Serna XR FOOT LT MIN [...] by: KIM PHELAN Date: 2022-01-28 17:15 Normal [facility] Coding Summaryon 03-30-2021 Coding Summary [employer] 64 MvudltykRSl8qDh+PGhlYWQ+ SG6RECRrA63loMSirZ2LQ1vP NA1RKNYRKLLXVZ4SOH0ghVA3 YScnY1SggsQz QfdbjSEpZQ20ETa3QKU8iLwv FCsqtS0pzWWmL8i7AjJzHA20 sB30SQuuLBVwOsI5TfGndljw bWFy J6gvFkFigQQmQth+PHRhYmxl IHdpZHRoPScxMDAlJyBzdHls OY2zIo7sFFEsWNPogVofvLDn OiBj x7gjYCJqGHikLO2hoSzsK4Xy bRE0ZZFjs2p3Sh96tRH+PHRk IYG7bBooJDdev689EbLyx3vw IDM3 tUCoWFyiJGF0P04nq9M4BZHl IMNxLBC2cPZ1wD5wrKzuucug I8ShbMZgMqD8LQV7sYTkpY6y bGln uwtsxW1lNxn+Y87YFZ3SPYIH GA5XCqn7J7HaIocshXH+PC90 VQRbBD26dSFsrIVlo4cvmRb4 JzEw LWKjAEP3dBjgIFaoa9SzCEKb C01kpFJwc3N8PTFetZvplQEp IrBxaIW9nH3qTTyodovrh2ma dzsn Hiyla9zqwa45tD24F91aDKgc UEVoTJE2IRKuRMHcdQuldt1d tI3wLb9+BQawf4mka6hsdKl2 IjIw TZFyotMaqPauECJ7p7UkBw85 Q7MeyVpsh1VyMsq8qm10cPUw u1Q1jZC2XGjuVKDkhB4qIVeg ZnQ6 YMLpCqAubG18dXQxWIjaFi9a dCpmhDpyNM5nBWTriqwyAYRe cE5hCBDoaDFykHxlDW9jQATj bjtm h900XdSkBUT8CTOzlOOjB9Ll vT7nYtFzLVMsJWNiV8QarFUm YDifK729EAogHxE7RPXhupRd Y2Fs HCNbzKzeHpQ3l5W0Ls7Uv4Ir flxwECH5MCgrQVYyUnQ9XgCe MwZ4B1VdLvv3WGHgaNltCB2p J3Bh PPXlmpftkvwquBJ9MMDwFWMz mU00gEUkANdmKc7po1O0l170 BYPrEALfqY52Og2xiBmqYEIi dCBU lB6itbcjo9herlfjKnHyXXJm TYk4TZv9DXHrpLpzPzQzDPR6 GiE3ICD1jTMeqQ1rdGxtrutj dG9w Oyc+P30zpP6wOXR5GDM3rqyb ZLGbusEhTB35HX39L7NzFuzy dGFibGU+IIRdgjVfgEheFO9z YmFj b3gjp8EaSXskR0GfIFJnMBob Wav6FKThKWV1zTT3jG4sOASt NWosq4O8pWI1Z2WzvjGbii0h b2xs AQGsPEhqE18fvETbx3U3HLOd wEW7KZIkaDwcFsTlgE19Evm+ WYHdpSzlb7TwPuucl3jyo5tv dGg9 HdWjQKMmddQvhGtmLJG5w9Ef Gh12Z48cJDyxXCNzZVUaSPRi VPApkMchkn8gvJ2oNd3+PGNv bCB3 zEP7cI1tKNRoAaC4EBipQ919 QoRncLGgPtmey2gws7icdEu4 PzMcTSRswaWwiTojEVX9c2Bp Lz48 D73rYNppXHPeALIsNBGsVSZd tKdqao4vhE0eZi9+ZH2je3ns jf78vK40aOB+CJMdCVX5eMum PSdw MRSwrZ6jMHyxXmE6JOJeAlGs qU25rURbMPavEd2gfZkyfYis IZ2yIKHaixfqk330OgZob5yt IDEw hQDvVMlnWER3E42bx0D1WHHz YNMdPDJ9vZA6jJ1waJffthwu bGVmdDsgdmVydGljYWwtYWxp Z246 IHRvcDsnPlBhdGllbnQgTmFt BCb3T1PeSxn7POXfxLdjJB4u qOFlGUbbHu8yyWlsjJgtIM8s NTBp epdax355BsGht6rsIMKymHMk UZfjUQU2X70ue2Z9ZNMfGEZa WRD7mBE7cQ0atIvcrfhguVOq dDsg yrPflXchXIopMPqwA364SRKw kWnpHiIdhvPtJTKlvGD1IU86 HM33xTVwv5Z4hLN1Z8AgHTSs bmct fpkczZR2HBTyHFTwgE00Yi7s hRwcYt0fCXKeBTA6PMCpnLBl T3OrpJ8zXjZzKQOzFKVsZ7Gm eHQt DXfwC277ATdvPkJ1SPHjvzTf B1BdEDWqaAwbZhY8n2M4Kz1K G8T1LH52TZ90eOJmp8N1iCZ7 J3Bh YFZrhisiwhidvCU2UNUlCQHg jW17Io7drMcgDc4pCNPaFFC9 NMPqdLFdJ7KuhN4xMrGsZGUz MDAw W4UplUYtTKhnC462LElvCyJ0 ZCYozfJtS4RcCYJgyXaeBaS4 l7C4Tj7BVTa4QY61MW73yWSf c3R5 oRZ3A4ExCWRzitgrwjkqkZU0 XPPwJYRraY25Mu3ifGqjSs5x PWBwTWP2OQOzcWUiN5LzcQ7s OiAj LUBmOCZnL0SzmLLsXCcfM005 OCrvBtF6ZJQqbrTuR1MdGTGj uQjbXrB2l1G9Pb1WIQZkQD29 IFR5 tUP0HX72BU32G8YrPwrqfUQk bGU+PHRhYmxlIHdpZHRoPScx MJFoTuCcyMuxCC9nWn2hRABr LWNv iIillPZhTrJyt9gfGIIyTIpu AV2ncBtgH6NzkFM2HDQlv2m8 Fa15V56hI4NybIY+PGNvbCB3 aWR0 oJ9qDcLdJqD0MDydJ433PiSe wKAhEdbcd3xfo1ivhXa8QdQ4 JLEdttKfyCvaCQQ6j8NqAz64 Y29s IHdpZHRoPSIxNSUiIHZhbGln hd0kcK8fVk7+HVEdmGI5kGT7 vN2rRvOgYjK4WXljT485XaHm cCIv Zarpo4pqf5jyzEl6ByLoNWWy riFevMnpECW3f6WcQz29K0Nr mEija9MsSmy9er14oAWcv9R5 bGU9 Q7AcJVQlksxjoCSspAcbGJ8t XSMpcdugTXVxpG0bODCqE3y9 HuXpFpI2HKxxE3HgncW0ILCa cHQg XBckLMT0F66dw8V5DKUeUDNr EFC6vRU3aX3flFczgeixyROo eQgzznCyiNejGDvgHJagY352 IHRv sYpkLXXnhA6pVDAwxBFodXza ZH1iBLVevgscPiwKZaLKFCFK YHLBEBCMYZ7DJNBYPX51MH11 dGQg q6Z7mQJ9H6OrHRZmzmybiogi aQG8UDLxHGMznR43pXRkXVrp Gs2xl9G7v489PKUtSZXzpU11 Zm9u bTefJIQytYRQoO6dolzqu1px nrwjDvAzMHXgOSs8VNa1RLSq hYnbGcVsXDZ4FzD8YXG0zJGj bC1h lKuwajfynL4dDkk+MTAvMTIv LXq5CXlycPD+PFNuVSF6jMwt FPpwIMYewV1rURLqT2j2HeCh LjA1 IWeuI3UbMBGfpgxwRq83nZ7d VuFmHuJ4NDefF4NiqsN3TQTp hGGhRDtgLHV3U63ql0Q0AACs MDAw LCQ8wGF2kW1fyZiqdaojpDIw xPmtfdWnqXugNVvlRHbkH524 IRTurEmpDhslDBvnLLFeVV37 ZD48 rTUuh7Q6fGJ1Z2StRARqxmfq scntqDG0SGTvFGMliU82hYYd MKqsIt8fs3L8d481RDJzFBDu aW47 Go0zhEzdDPGlzMUXuP9nbwaa w5qqxlfwCqWnXJTuWEk6JSk7 OIJhkLniNyGgBZR7XjW2WRX8 aWNh gK4diDgxrxoslH8xVsk+RkVN DKqEAL37SA01oJDdf9N1oQL8 I6UgGIAiqxmjynrovNJ2DWQv MDUw aQ87gGXsIYcsXm7he0D7d884 NQLzUMBdoQ06Ta8tqXvtWXZh rFANrR3isbojt2leqiesHtRd MDAw EEs0QHn5UWNvhSapKuSuPTF5 RpS1LBQ0dGQgtH7vdRbqxdum cD6kYnd+FE2modlcsdV7IY87 ZD48 L1EhPwuomLMjuWV+PHRhYmxl IHdpZHRoPScxMDAlJyBzdHls BK5xQf3gIPIgDDMndIulcZLi OiBj u2zfXYYnRYulKQ2btVzfP7Fv kNY9VOKsh5y9Jr67W77fS7Ef dXA+YCMtgNG7xMQ0mC6iBzUe IiB2 EUhuM966SeAqwXJpKkezk3vr q1uwgSp4XcQrDAZyofZmqEdt OCM6h9DmOy61O49eCWpbVJZj PSIy DSMpQKWmjCkbfq2moP6eQl9+ JFIzaKU4xBR7jO2kKrCaZsZ0 SKykR695JsZoiXDcMszgV80v Z3Jv dXA+DLFsMew9UYYalHpwLD9c bLFlWHsyIf5pCTZ3TrYyXqTk BMgpD2LeQIDogyyufgrvrYM6 IDAu XEKsaA60Cc5suQiwIf9fKSPr HDZ4VDJmqCHwN6EdiJ5mReVe SPBnFPFuU3YptAXqWDjcH174 IGxl ShJ2KLGovrFcH3ObTVGipJbf MzX4s1Z0Ft2JgEhirOLdLW0r JaZhXSn2B6IwWgx3GAVmfQdv ZT0n uLExAOtmFp4voLymgSxrCH6h ETMyfeqvl688VvJji4vlNEYw qDDmNDbrNDH9J60bz3G3MBZi MDAw NMR2lVA1oJ9woXjbrmlvlBZe xOfhezOgaNtfCZhmMFxoH205 ZCUlfStaHrNPSbg4O8OxYfj5 ZCBz xPdbQR2nhRTyYVdpVa2ywNio tDqaJI4kPBRmsgwcu341HqQo f0hnYVQpvSCmLMntVJS7C53s b3I6 PBWyAEGfGJO3mFC7aQ9qxNnh bjogbGVmdDsgdmVydGljYWwt JPkiE106LJPyoIzpUr4AWbz5 L3Rk Qvg2DGDgdDspGQ0kgMRqPJrr Cj1snDmidDuwUI7fMVDdhhow n759UgNbv3tcJOWrtHIkESqq ZXM7 Z11jr9B8LYAhMCZfRPA2iQK2 fE3gzWpnmrpzbJXmyOdgrdEs xCirMTrmNRgfT423XOWqgEnc PlBh eWVyOjwvdGQ+CS91vx40M9Uk ZqopXpk7HCKsMMD9dWV3lX4j GBZvOSsfv6V8eNC3N1HtjnCc ci1j b2x (more content not included)... [facility] Coding Summary HTMLBase 64 QkvzjuhgONo6iRw+PGhlYWQ+ WD3UHFPtJ23rpTGzzA3BM2zV AM3UPLSTGVVLMB1GCW2flML2 LTizK4BpyyYg VtalhHSmMO86PNh2YPS1cOoh PRodnI3scPRrO8i0FaNuLP66 fW98MUcwTAHpVgX3ImSjtmel bWFy Y3sxBsZvlWZsTsx+PHRhYmxl IHdpZHRoPScxMDAlJyBzdHls FO4rTe4jUAWgJVUzaUjzkAQh OiBj j4zyVUYzWNtwKR9zxGhcM1Dq bMU5NNVom2n7Hy34zDO+PHRk PCH8dIsjXXwij235GqYzp9gi IDM3 sFSyMCzqIEW9P80sl1H7NVIf SNJcMXG8mNY2kT2qbNsniers R0YplVFfLaO2UFY4jXWygP3i bGln ucgtjP1xPue+R05WXT8JXKST KI9LVez8W5AzIkeaaPT+PC90 RHUlGI30tGNoxTGyc8abtCc9 JzEw VILgQXT3eEhdMFapr4HfSNQk H95elRYmm2S7BNNepIpctQTl ErSutVG8kC4bMKnehftbn8sx dzsn Egipi6cjow77kT78T08bJAwo SOLdWPV8RJIyHIUatAfzlm8j yT3cBf2+EWqmr1uxo1wayNz1 IjIw EYIdtiFlxUfdIKI1p6OgVx09 V8WbdOstm7WsDif2iv74eKAi h7L5dVN2VJrnWJUzjI5wEHro ZnQ6 QOGnZxTqjL26pQPdDXtdMb5b pDhrnHmnMA9sLNLlorkvDRCd yB0kFOLoeILwyFwsLR4iEKIj bjtm v371SzTdKDV3CGMphHPxV4Mc hZ1xQwNzONTgHRFtJ7KbbWEd VKqwR919PLnzOqI5VHZayjKb Y2Fs QVXmlAmsAhW2c4V6Oo3Lx9Mn qhpcWPD2DBamFYCgVoG6WcWi EaN6Y0LpMwy6EAItlZucFK9j J3Bh SBXiaxjapmblcRJ1ZRUsYOEx mW55qEAzUJchXc9jm0Z7v763 YQBgYGIslO30De0ybQknQPXa dCBU pW0uvacti9atwtpdZlMdZQIr NRj5HHm1SNUmnHkxFbElIRD2 BqE8PMX1sNImlK5czXhufyyz dG9w Oyc+M17sbE0yFYD1SXE2lnfr RNDdghUbQD33MH96X6EoTwpb dGFibGU+OXRmymSrqKvxYQ8b YmFj b2ghp9RrXKegQ0UiZHWeRDhh Xhw6SZPjXYI2fYD0fJ4iPUYu SXrze3X9kPH8X3NghmUafk8a b2xs OKGnPAhjX45dyDRqo5I4OLXk yIC0DGWkoKxmCaEhqW37Ynv+ HEIeyIedz9MyKfbmv7ure3gj dGg9 LmDnXIMrqdAdyNjxUKS4t4Bd Sb67B34xLNeiNTSuJZPwXJLi NDYdvDxpud3blL5gMd7+PGNv bCB3 vBQ9dF5oEJRuPaL2HAgkC596 XpMxlKCzBurxb9taj9hgrLz5 VyQiOODatsPyyPhzJKW7l2Yg Lz48 Q65bUTklITReBIDoQGOzASYo cTggkn7ocY0lBb1+UO6ci5bc jm00fA72gGT+KPTwULT7fFpy PSdw IXHrcL9rSXumSkS8ENKkEjFo cP42sERjDHdpCi1osZjnqHah HM8tPTIjpksje718VbRdz1np IDEw jTJlZQdsLRC0Y81mz8O0NWZj FJIgRIF0sYG2bG2ifMdgtnju bGVmdDsgdmVydGljYWwtYWxp Z246 IHRvcDsnPlBhdGllbnQgTmFt EGn4I1ZrOof4ZWNikBzvVT3i oTTuBOvvWk7keLcqhDftSB2n NTBp ktatf120QyUbl4uhBSJpjEMk AFldWMQ8S98sf0H2DAHsZBLm LIA4qAE3vA9qhWexzjhdcBFf dDsg liJhsZgvMBrwEYirQ991VEHt wUmsNnWfxfSgBYPlpDS5DQ16 VY35kJEmh9M5oES2U6GxITDx bmct ovocfJQ4BDPfWEXlsY61Bg9s cWcwIc6kCRKmPHE8ENLmdEOc V4DqdA5eBhErQJJhYMKqP5Sp eHQt AQovI796VQyfNbC0OLYigrGn D6TpGSAgiJnbTmX4o9A9Yr9F L8P3EM75YO92oUCkz3A5gOH6 J3Bh SLJrfzsfaerbmZW5CBOsOHFq lU59Il1fgNxfNo1wGJSfZCN6 ZUGauALuW9TdsZ5oOiYxZBZe MDAw L5KtqOZxGOplV585XXzxUlV6 HFCvmvSfW1CoNGImcEzjXkK4 z2E8Vw7TIGo4XA84JJ60yRLr c3R5 cNG0N4QrXZQaggfjkufcsJL9 YVKdBFZoxE43Nb2gsXmnRl8n MGQhGMV0JRGmdTPvL1JfyB2n OiAj DZGzAFQxH5LtnIEjBKvgF984 VJnqBwE1EVGwgqKqP3HrOAVp nMhbAlL6f2N0Za5PMJVcUC20 IFR5 lOO7RQ67SD96Z6QhVyqugCSs bGU+PHRhYmxlIHdpZHRoPScx QGQeCfQzjGdhMD9fCg5kSFCf LWNv qPnriVDwMyWnr8lpVWEyJWpo NH1cdVgxC5EytLY1PADpl2h6 Vz39U41qL2SmbUI+PGNvbCB3 aWR0 uC9pZdQcHxI6REcuW610TxIa bMNcTvtzp6bvp2hziUl6WkJ2 NQTktcNsrOruJGI7p2NwBz12 Y29s IHdpZHRoPSIxNSUiIHZhbGln kd0xkO7wPd4+EUPlyHG8iMJ5 yL2oQvIuOtK1SMrdZ090OcJl cCIv Wwkwg9ays4kgcPq2MvVgEEAt slBtnUdfRRV9u4QxBk49D5Di mEztf9UyVuc5cc66tDIpy7C4 bGU9 V4JdNKKbvxdtnQMbmGynKR9r SKWullifVDZyiT4yHNWyX1v6 OeHpQhH6GMzhN6SdnzD7OMBl cHQg HEyaAFY3G67dc1S0XKRrQITo JSW8uGI4rW1quXtrlhqycSRp sThtpkZhoAbaVRzvNEnfE681 IHRv pAeyCRHwvW7nELHutLGzlOhb PM8iARDfyzwkYtcIFdYPGIHE NATFKQDFBP7FFYFOWL56AN90 dGQg d0P2uEL3D0MgDNGhxrczifew sOT2UJTcRBAieK47mWQzYYmb Mu4by7E0a149BQWcNHZieN10 Zm9u rTjqPNSblCAJaW4nahbde7ow aahjVtYvQBMkCZy2ZFb6XKWi vWskDhOjNAC3PfW0BMM2hHHp bC1h cNaqfztahY6nAvu+MTAvMTIv FSg2ULdpoBP+ONVnYSP6oCrw RYyxTBChaJ1sLDKvJ0v0XhQk LjA1 YXdcE0YaBODtlvonQi53tO3q QiPxLwS6QXieS3FadxP1EOLd dOXiULedZCT5P91xy3J1OCQq MDAw LCQ6bJU0hJ0pkWujwojdfGNh jVhpzzDmaLigWAntOSnlO847 IPXgwEpzQxakLPjuXAXxMQ21 ZD48 iXAqy8F2cTO8C8YjLXBfjhvr orepyXB3YKFjDHSiiF90wSBl JCzzMk1is9M0j194FDAxZISy aW47 Oj2luSfiSVSfeBRKaA6dmqgo d1admqzeGfKcOHOvCCh0BAq9 ZEEsfQeyUvGwKLP5KfV2XBO8 aWNh xY5pnWiyptdzdL4qRjb+RkVN EWlYIC62KH94pZGdp5O2eZW2 A9IeDLOqclhkytfpdOW0ZGYe MDUw rX63yEZzMXyfDk2uw5H2u551 LYTgSWUvhZ39Iw9myBdoFQWz sVWGhB5mhvcmu5drgekqXlJi MDAw DZy7IQv0AYFtcHpxCrGmARM5 WrZ3GOO6mADuhK9njJypwfav nW6uGsh+YW5ollvmdxZ1GJ23 ZD48 Z7HgDjanzXOpvDE+PHRhYmxl IHdpZHRoPScxMDAlJyBzdHls SC8wXp5zFLTqPOBprMgkvUQr OiBj m8uxITRqCZljOM3xjMyfG8Ra sSD3NSNxp1b9Ek61H96cP0Wx dXA+QKGekJF8zIP8nK9nHgHc IiB2 RZfrO779YjRerKVdOeohk9rn v4iovLl0JuWuHNPzsjLxyRyl UGC4u2AfRf72S10wNDdqBUCv PSIy QJAiEZWilOqquz0lfJ5bLd9+ SUNxfDA8kVO0bP2vYnFpMqY7 IJuaQ011VxKcvCRsEmmpN68v Z3Jv dXA+BAShPfr5NDCjxVumDN8u pUJfSYgvTe0mTCL2AkAlJqAi TSccT4IvETJdbwureshdiMI6 IDAu GRDiwV41Qd9rgJcnGc2wNJIu HWD2GNBqpLLkE5QbgN8dStWp WYOaVFMaO9HscMBwGHfkH764 IGxl SuY1VHRtrqAnS5GgJPHnqVrb WmE4a6P2Ng5HmQnwvTHqXV0w KiRkVGm4S4AzHvf2XQWvnKhi ZT0n cSDdNKlbNn4ypVkerNuvZW2z FPFtsjjvl089AcFqj1olAMWq oSBnQWvyBEB5Z52to3Q9BGWp MDAw ZYI2gFN4xO3amBwqjfwpgTNl tPbesoWhjHpiKWmiXJzpR400 JDJxyWefAiRSKze5W4BfAil4 ZCBz bUrrEY9eeVYlYOlsWr9qwCuh hUetDB6eWRRvwetvl879BsBv f4kwGWFklGDvFGosKII8C45a b3I6 HPMmLSXtYQD0jJF0wR5eeBxb bjogbGVmdDsgdmVydGljYWwt UZstE471LPQnnGdxHk8KZmu6 L3Rk Zox9LEQqiPycCI4jiHUqYRro Ht2rfWhkwIzoFS4sRULlraif g883CbMjn0zzKUWwuYEcVAfx ZXM7 Y66mh1I5RWBzAWMxFQM1nGW7 vQ3uiRnuwordgQIrmTqqgnZo bDgoPJbxXPduS557NFEeqTgp PlBh eWVyOjwvdGQ+SR03ed69I4Us NaxcBhv0RGBiCDE2nKL5aW9b JROsZNbtp8C0hZU7R2AwshTa ci1j b2x (more content not included)... [facility] Coding Summary HTMLBase 64 JedmkhvdXAo3kMp+PGhlYWQ+ OY3CCAZrL40glSTknE1LS5sM TN6BYSHESURRWA3EDX8gmZP8 UOmrB2TtkoQc HapgvHTlDL27FXn8DSS1xShy ZLtroG2lrMTeZ3y4WfEcIG22 yM11CVzmQTUaMoU5ByQqciea bWFy E7txAyJctBQaSev+PHRhYmxl IHdpZHRoPScxMDAlJyBzdHls SV2bXn4sDIOwEUUrgNwdnDAc OiBj y6rwEDAdKIbgGE6olCpgZ5Ro gNA1UWEpn4r7Si76wJA+PHRk FBK8aCdxMRoqd263ZdQht8ej IDM3 rXNlCTlcANV9B50er2C9RUHa LCWnLVL3vWH5iN9vwHqrbqxa N6LyhMHcKnA1SPS4aZAztS8m bGln umjyiX7nUfd+U56JNL1TYTCH II8CZvj7V4FcYgfiyDG+PC90 TGKnEH04nWUxeJFmb1bflZg5 JzEw EEKhGRT2wLtvWIvwq0ZhRSCm N98xaELhy9Y4JQGirBaakZZm ZoMytUV0hJ0kEAprwogre6lz dzsn Sibdm4kjgx22bV63Q38wAVdj LVKfSAE9MOQoXDApzRiriv3x wG9jDf0+RFica3ows8lsoSj9 IjIw OVZulvQqfZqpVSS8r0UpCl32 C2WziMiqu7ZbEeu0ut66cLAq k6X2iBE6LUqtHIHziA4dNArq ZnQ6 RYEkUsIjaO10yURpAHjfEp7y sFdkbDlzWO4mHMNkcbxaMLTi hI3eYVGnmDKsuAxvVL9qLKFz bjtm g032LqKvIGY5BWVhrUVyD0Ot cQ3yNrBsQTVjFXSmC0OrgRHv MPlgR182ZFjuSqL3CRPvncXa Y2Fs SFZlsNqqUiT6k6U9Zj6Cl8Ij ebemENW8XZjfGJMkXnZ3FhGx SwZ9C3BnZot6JDBnbSffFN4o J3Bh GTSvhuuznxnmwXM9FXUxTOHy qF41mLNbTQvyDs6hf2Q4s346 XFCwMIFtdD97Ye9hiKpyJZJg dCBU oQ4upumfh5qjcjbpZaOzTCRe AZh6LIf8SQOsmDhoEiPjLCK2 MfA7KUE1aJSocN7qxYukfphk dG9w Oyc+T67llH9oJGD6APJ8vjfa PQCtvwZmLO78MA01M8YqUdut dGFibGU+KDZjksGqzTkwIL9b YmFj a7flo4NiXXcyS7TaIGSxGTnk Vdg5ZWKoWMU6fHW1oK2pTFDu EDnsh4T5fVP0O0MrvdBsnf7j b2xs PHBhBDoeQ61exSNuk8I5YOFp aYN9DZHpqPzvAbBdmY80Lqo+ EYHfiXtuc7DcHdjei4yla1vu dGg9 DpNjVQEvpbBpjRnsSUK4e7Gj Bb29G40qAFabSCNzDEUlZOCc OHEnmSgyxd3wnJ6wWh9+PGNv bCB3 uXQ9xX2aCNFjFpJ5OOcqX559 DlLbgLMgBldmy5iqz2fptWm3 NoNbYYHyisEuzAlgEDS0h7Yn Lz48 X65oYMrpGTOiODPfPTGaOAHw jMcsab8haY8cEx6+ZJ0mb3bl at54bV98zGC+GALfKVA7rSrw PSdw LEQkwW9mFRcaDlU2IVLqSlRr yX16pGFoIBzsKe7ykVoaiZtx XD6mLXWghbflp140EeIqe5yt IDEw qSYjBXyoJVZ6X26nt6H9DWNp IMTyHNI0mYN4lE7ciGkzmbxg bGVmdDsgdmVydGljYWwtYWxp Z246 IHRvcDsnPlBhdGllbnQgTmFt CTa7L3NcPhh0EIZfsEmwHB4h kFZxJQykEh5tnNrftJiwDJ0t NTBp tldnz996HcVqp2wdMPLanRHx PYndVYR1G35wv6Z6KZInKXLj FCS1pMS6hS2mkFpjzltipWWo dDsg xwZbeIhyATtjSNjhG786BSHo vCjxSoGvyuDvJWOdaCA2RS59 WS55rBXra6F3bWH2R9TtUYOl bmct rkccbVL8RKSwXVYtgP86Oz7j wDcdBe1iQCMrTLY1ZFYoaQJo A9QqvL4wFmRbGDHyVZHrR4Is eHQt DScbS159PHsnKyW8JHDfvaVv M3GvLPZjuDdqUtL1v0J1Na4Z W8T5KA47LA27zCQcn8G6gJL5 J3Bh RLJysnlqvlczhLP1PEObARKz lX95Rn1jcSvlDy6xHJQgFVC0 GTYepBWaZ8RraZ7pVvBiSCHe MDAw T5AzvLTzEOiwL682AJtzRjT4 AGSssyHdD7MgXMVeoZixNpV2 x1V9Nt4WQXm8RT10JN90lDQh c3R5 vZU6A5BvHGYcvhenrxvwsLH1 BIVzUNEwsL79Vo7rhMnlGq5b WJDfCCT2UNFhgZAoW0UwkB2x OiAj JPVoXRChM5RklXDjZYvjQ872 CAkuPmU2EYZmuaDoB7AiDTGg nGsvZoO3z2W3Vn8ZQCTfFS41 IFR5 qYW5AC87DF14I9YoCqhheVBh bGU+PHRhYmxlIHdpZHRoPScx SONoDkMyrRgtYW5iMx4rBELp LWNv yQkdqXUdVyOml0bzXVNqNHxw BG0zeOtyK9SsxPD5LMRvf3i6 Zn08Q87qW0PbbPN+PGNvbCB3 aWR0 lN3jEmJvGmH0SLjgY136MpEh qEQyQaygj4aqx8xyxSi6SwK9 YRDivaIwcRkyKAN6l3LgOx34 Y29s IHdpZHRoPSIxNSUiIHZhbGln xf7ygR5vRm4+AWMkuZB7qED4 nU1iAqAtYcA0XRxcV381GxCs cCIv Grlev9eva6ankZb7GqOlKCQr mgKdgKpkGSI1r0UkWr83X2Aw qFypb2TjHzl5nr97dGEid8E3 bGU9 V8JqCNSjhbrrkEGlsLjfPW9b HQEbvlsfGQVovC5zISSwN1e6 CjHrMrN3OYhgH5DqkrJ2ZNPp cHQg NAgpTBV1F03rv2S0QIDxKAXy GLJ4gHC0oD2ylCrcbywaaNSz sDmjwcDchPxgEEkbJVozR733 IHRv xEdwDCDanC8lUAInpWJebLhz JH3vKJNzvymgJfnYUgTDFKYN ZNPQQKKCWB5EISOMYH61ZY02 dGQg r7F2vVJ9B8DaHBUftuikwpwd eHK4QLLzFKIfyR51tSLhHJrj Bn6cq0E2p853OCUwBXMtdF93 Zm9u aBwuPISsyPJSeT2bzzgxi6px suwzXuNxQVUxFRw6ORg1SYIj oDgkRyNaHOS8HiF8KDV7uWUb bC1h ySbhnyaogX9vRcw+MTAvMTIv ASm7SOrhxME+WIMhLSS0yWjc NAggSXMoxO8cTXUoW0i9JvNm LjA1 UCjrZ0GqGKRuhvofUw23lW3m RbTsSkG6BAgoB6DoxiH3OCOp dTXhONurAPN4B53lp6C2VBLr MDAw SOQ8rIV2jX8fvDrdpmwzmYCt jSryjdIohElsBUtySEdfZ645 GXGziHccDuijZPodIDKbXJ04 ZD48 jRAfz0I5pKV2Q2SfHFFxiqbi ivhtiAF1NURdZWMvxB00zWHo MNonWy4is9K4o036NNJkBAFq aW47 Vj2yzKxdZHAwcHIIaV4xmpps x4bvqdjvIgZzEKRxPVp0CQy3 BHIyqCgeAwKtYCU5YaY4LVP3 aWNh qQ7wsYkqxskzaC0vRdc+RkVN WDqWPW87WP88yGPlz1Q0sWL7 Q5LdZQRkvkznteccpQE6JSWx MDUw gH34uWEfZHjoTa3ff2G5k369 XAClKTQgiJ60Vj1ldRghUHDh fJVPyJ3snvdnc5shbdgdOcIw MDAw GQf6VZa3SYNjyOweJyAgSUL1 WxF2SOU2gOKgrT7dpNwunsih pX2uDxt+QO3vvyagiqI8LK19 ZD48 T9UlAwlvwKDadAD+PHRhYmxl IHdpZHRoPScxMDAlJyBzdHls PI3mLf1lAIKdNEAgwYpamCFr OiBj h9mxUXFmHDjbBS6enFzxW5Xx tLE7ZNNhr7g4Lq40T38eL7Od dXA+UJSjzHO8wYV7iN2eQkQb IiB2 LDsaW122QnXchUXrWaxnu2tv e5hjaAi0ZyBbDJPphfOehRqi NUA8x3GeKu24Q22qEGugLHCk PSIy ASAuFDAagJsvof6bkQ7cFe9+ NSGqbTO5tJO1tR2dIuFnUwH0 KFtlQ366YjHfrDJuEhamZ60s Z3Jv dXA+DRWqOdt3SYPezTruTR6g nMLcRHzkBb4oYLQ1FuGdOdNl KHpcW4LaJNOftpbbsxlmxQP5 IDAu EZBzuF18Fh7jlHqpHx3uZJFz OLL2JQSnpQLtM5UpsN9mIlEv UMWbCGJuU9AkvZEaGPptW505 IGxl BtL2UEBcfuIwU8MhERZxaZib MmY2a3K7Zg0TaBiljQIuEE8b HkFrLNp3M2OmJvo7FSMmtQrm ZT0n uASmIQfoKz5zaIvwaCxxKP5i WZYufqfrj691LjCdz0eyZPIs eIAcNAbdNEB4O87dw1R7SZVt MDAw WMY6rQO7wE9rbQawgdbvvNLn xExivoMqvFijURphIYhjL674 CYHtxIngKcSMDna4T9LkQmk0 ZCBz yHcpDN0loHOqBAehAe9hkElm lJcrJX7dWQZqocjiz033MeAz v9yqGYVgwEUiPCpyRNF2E25c b3I6 AUSoBWPvLEZ3fJO2yC9mvGvb bjogbGVmdDsgdmVydGljYWwt ADkuY319LTSndDcoMz5SMdz3 L3Rk Mut3YHAicLgfIR4zuDPrJLvn Cd6miSvopLhiXO4cDKMjxnau u121BdFge5jtLNAvoPCuMLat ZXM7 W10pj2M5ZOAtXGAdRXO8cXZ3 xN6aiEcuoaaiqTIckFlncdKo sHafYTtuWIqeG249WCSdjYmw PlBh eWVyOjwvdGQ+DU28vf42X4Ed SriuYxx8QDVoYPC9lKI1rV3d EUCyXFahz7D6oJB8K3TqivZx ci1j b2x (more content not included)... Normal [facility] CT PE Chest w/ Contraston CT [...] Scot Kaba MD 03/21/21 11:01 p Technologist: [facility] Consent Formson 03-22-2021 Consent Forms [id number] TIFF [facility] ED Clinical Summaryon 2020 ED Clinical Summary [facility] - Emergency Department [address] [place] [address] ED Clinical Summary PERSON INFORMATION Name: NU RIBEIRO Age: 71 Years Sex: FEMALE : 1950 MRN: Acct#: Visit Reason: Shortness of breath; SOB Arrival: 03/21/2021 19:58:39 Discharge: 03/21/2021 23:34:00 LOS: 000 03:36 Check In: 03/21/2021 19:58:39 Checkout:03/21/2021 23:34:00 Address: [facility] [place] [facility] [address] PCP: Nicholas SNELL, Laz Romero PROVIDER INFORMATION [...] distress, Well-ap (more content not included)... Normal [facility] ED Patient Summaryon 021 ED Patient Summary [facility] - Emergency Department [address] [place], [place] [id number] PATIENT DISCHARGE INSTRUCTIONS Patient Information Name: NU RIBEIRO Age: 71 Years Date of : 1950 [facility]: [id number] Reason For Visit: Shortness of breath; SOB Arrival Time: 03/21/2021 19:58:39 Primary Care Physician: Laz Portilol MD Attending Physician: Marisol Leigh D.O. Comment: Visit Diagnosis: Diagnoses This Visit Asthma exacerbation (J45.901) Shortness of breath ([id number]) Prescription Information: If you have been given a prescription for narcotics, seek immediate medical attention if you have any difficulty breathing or any sudden status changes such as confusion and sleepiness. If you or anyone you know is experiencing suicidal thoughts, mental health, alcohol and/or drug addiction problems; contact the [facility] 03/12 Crisis Hotline -Text 4HXQE jv 895052. If you received any narcotics, sedation, or [...] With: Address: When: Laz Portillo [address] [place] [address] Business (1) Within 3 to 5 days Medication Information: The exam and treatment you received today in the [facility] Emergency Department were for an urgent problem and are not intended as complete care. It is important for you to follow up with a doctor, nurse practitioner, or physician?s graphic design assistant for ongoing care. If your symptoms [...] so we can reach you if necessary. [facility] Emergency Department has provided you with a complete list of medications post discharge. Please inform your manager bank/provider of your visit and for further instruction on these medications. Any specific questions regarding your chronic medications and dosages should be discussed with your primary care physician(s) and/or pharmacist. New Medications [facility] [facility], [address] [place], [place] [id number], [phone] albuterol (Albuterol (Eqv-ProAir HFA) 90 mcg/inh inhalation [...] these instructions at home: Medicines ? Take gtxk-hui-zobfmba and prescription medicines only as told by your doctor. ? If you need to use an inhaler or nebulize (more content not included)... Normal [facility] Lactic Acidon 03-22-2021 Lactic Acid 11.7 mg/dL Normal 4.5-19.8 [facility] Comment on above: Performed By: #### 2 [id number] ####[facility] (DEFAULT)[address] [place] [address] .Auto Diff 1on 03-21-2021 Auto [place] % 8 % Normal 05-24 [facility] Comment on above: Performed By: #### 5 [id number], [id number], [id number], 7157962, 0014110 ####[facility] (DEFAULT)[address] [place] [address] Baso Abs# 0.0 x10 Normal 0.0-0.2 [facility] Comment on above: Performed By: #### 5 [id number], 13832959, 5676607059, 5465827, 2742146 ####[facility] (DEFAULT)[address] [place] [address] Basophils/100 WBC (Bld) 0.4 % Normal 0.2-2.0 [facility] Comment on above: Performed By: #### 5 [id number], 19825918, 0601815406, 8735672, 7334029 ####[facility] (DEFAULT)[address] [place] [address] Eos Abs# 0.5 x10 High 0.0-0.4 [facility] Comment on above: Performed By: #### 5 [id number], 13874602, 2654341837, 7757095, 5764192 ####[facility] (DEFAULT)[address] [place] [address]005 Eosinophils/100 WBC (Bld) 7.0 % High 0.9-4.0 [facility] Comment on above: Performed By: #### 5 [id number], 78583641, [id number], 1682573, 9512774 ####[facility] (DEFAULT)[address] [place] [address] Lymph Abs# 2.3 x10 Normal 1.3-2.9 [facility] Comment on above: Performed By: #### 5 [id number], 02554618, 2906526773, 4978210, 2858283 ####[facility] (DEFAULT)[address] [place] [address] Lymphocytes/100 WBC (Bld) 31 % Normal 14-48 [facility] Comment on above: Performed By: #### 5 [id number], 70047827, 1824995639, 4023807, 4882165 ####[facility] (DEFAULT)[address] [place] [address] [place] Abs# 0.6 x10 Normal 0.0-0.8 [facility] Comment on above: Performed By: #### 5 [id number], 14549548, 3830878338, 2335530, 8419654 ####[facility] (DEFAULT)[address] [place] [address] Neut Abs# 4.0 x10 Normal 1.5-9.2 [facility] Comment on above: Performed By: #### 5 [id number], 80695252, 4485379312, 3085220, 6831337 ####[facility] (DEFAULT)[address] [place] [address] Neutrophils/100 WBC (Bld) 54 % Normal 44-88 [facility] Comment on above: Performed By: #### 5 [id number], 32557149, 8114353066, 8782750, 9129319 ####[facility] (DEFAULT)[address] [place] [address] 15757 CBC w/ Auto Diffon 1 Erythrocyte distribution width (RBC) [Ratio] 13.0 % Normal 11.5-15.0 [facility] Comment on above: Performed By: #### 5 [id number], 01783592, 2122693020, 6722511, 5150678 #### [facility] (DEFAULT) [address] [place] [address] Hematocrit (Bld) [Volume fraction] 38.1 % Normal 33.7-40.4 [facility] Comment on above: Performed By: #### 5 [id number], 10943944, 7596323511, 4499918, 9002452 #### [facility] (DEFAULT) [address] [place] [address] Hemoglobin (Bld) [Mass/Vol] 12.6 g/dL Normal 11.3-15.9 [facility] Comment on above: Performed By: #### 5 [id number], 55177834, 5851186751, 5853285, 1373875 #### [facility] (DEFAULT) [address] [place] [address] Instr WBC 7.5 x10 Invalid Interpretation Code [facility] Comment on above: Performed By: #### 5 [id number], 58805650, 0220502739, 1245055, 2265564 #### [facility] (DEFAULT) [address] [place] [address] Man Diff? Auto Normal [facility] Comment on above: Performed By: #### 5 [id number], 60490809, 0172561494, 0787024, 8678171 #### [facility] (DEFAULT) [address] [place] [address]303 MCH (RBC) [Entitic mass] 29 pg Normal 24-34 [facility] Comment on above: Performed By: #### 5 [id number], 33977108, 2021465669, 1322447, 9744043 #### [facility] (DEFAULT) [address] [place] [address] MCHC (RBC) [Mass/Vol] 33 g/dL Normal 26-37 [facility] Comment on above: Performed By: #### 5 [id number], 94251485, 8704567157, 5521795, 3645628 #### [facility] (DEFAULT) [address] [place] [address] 41362 MCV (RBC) [Entitic vol] 88 fL Normal 81-100 [facility] Comment on above: Performed By: #### 5 [id number], 35175609, 9477764069, 1214229, 9875256 #### [facility] (DEFAULT) [address] [place] [address] Platelet 225 x10 Normal 138-427 [facility] Comment on above: Performed By: #### 5 [id number], 89689731, 7865540408, 2831179, 0708761 #### [facility] (DEFAULT) [address] [place] [address] Platelet mean volume (Bld) [Entitic vol] 9.6 fL Normal 6.3-10.2 [facility] Comment on above: Performed By: #### 5 [id number], 34447982, 4282782908, 6830448, 0393520 #### [facility] (DEFAULT) [address] [place] [address] RBC 4.34 x10 Normal 3.70-5.30 [facility] Comment on above: Performed By: #### 5 [id number], 44314900, 1313267372, 2224201, 1546009 #### [facility] (DEFAULT) [address] [place] [address] WBC 7.5 x10 Normal 3.5-10.5 [facility] Comment on above: Performed By: #### 5 [id number], 25584175, 7493238832, 9956071, 7449974 #### [facility] (DEFAULT) [address] [place] [address] Standardon 03-21-2021 eGFR Non AA >60 Invalid Interpretation Code [facility] Comment on above: Performed By: #### 5 [id number], 78040364, 6859724889, 9280883, 5468790 ####[facility] (DEFAULT)[address] [place] [address] eGFR AA >60 Invalid Interpretation Code [facility] Comment on above: Result Comment: Bilingual Spanish Inbound Sales feliz Kidney disease could be indicated at eGFRs of less than 60 ml/min/1.73m2. Kidney Failure is indicated at less than 15 ml/min/1.73m2 Performed By: #### 5 [id number], 72245408, 0708133139, 4278451, 2255541 ####[facility] (DEFAULT)[address] [place] [address] Albumin [Mass/Vol] 4.0 g/dL Normal 3.5-5.0 [facility] Comment on above: Performed By: #### 5 [id number], 13361575, 7616613045, 1835631, 6073893 ####[facility] (DEFAULT)[address] [place] [address] Albumin/Globulin [Mass ratio] 1.4 {ratio} Normal 1.4-2.6 [facility] Comment on above: Performed By: #### 5 [id number], 60291947, 8089682130, 1037578, 6212670 ####[facility] (DEFAULT)[address] [place] [address] Alk Phos 59 IU/L Normal 32-91 [facility] Comment on above: Performed By: #### 5 [id number], 66303450, 7672814616, 8072522, 0367940 ####[facility] (DEFAULT)[address] [place] [address] ALT [Catalytic activity/Vol] 15.0 U/L Normal 14.0-54.0 [facility] Comment on above: Performed By: #### 5 [id number], 87305969, 6043779701, 2753856, 6823135 ####[facility] (DEFAULT)[address] [place] [address]593 Anion gap [Moles/Vol] 11.0 mmol/L Normal 5.0-19.0 [facility] Comment on above: Performed By: #### 5 [id number], 65747650, 8585840485, 4509858, 3361964 ####[facility] (DEFAULT)[address] [place] [address] 42977 AST [Catalytic activity/Vol] 19 U/L Normal 15-41 [facility] Comment on above: Performed By: #### 5 132336599, 58749569, 4854318868, 2623306, 2424269 ####[facility] (DEFAULT)[address] [place] [address] 56283 Bili Total 0.8 mg/dL Normal 0.3-1.2 [facility] Comment on above: Performed By: #### 5 [id number], 59013865, 9206256529, 2817077, 1552942 ####[facility] (DEFAULT)[address] [place] [address] 98653 Calcium [Mass/Vol] 9.5 mg/dL Normal 8.9-10.3 [facility] Comment on above: Performed By: #### 5 991305655, 63254482, 3069474321, 1409177, 4590437 ####[facility] (DEFAULT)[address] [place] [address]5364 Chloride [Moles/Vol] 105 mmol/L Normal 101-111 [facility] Comment on above: Performed By: #### 5 547478711, 67004864, 5922565945, 5478749, 8418182 ####[facility] (DEFAULT)[address] [place] [address] 75278 CO2 [Moles/Vol] 29 mmol/L Normal 21-32 [facility] Comment on above: Performed By: #### 5 577142486, 54610833, 0551837725, 5086372, 0447034 ####[facility] (DEFAULT)[address] [place] [address] 23419 Creatinine [Mass/Vol] 0.70 mg/dL Normal 0.60-1.30 [facility] Comment on above: Performed By: #### 5 [id number], 02620931, 3985635870, 7939571, 0081350 ####[facility] (DEFAULT)[address] [place] [address] 67630 Globulin (S) [Mass/Vol] 2.9 g/dL Normal 1.5-4.3 [facility] Comment on above: Performed By: #### 5 768105376, 90282412, 9511080641, 5426353, 0035375 ####[facility] (DEFAULT)[address] [place] [address] 37304 Glucose [Mass/Vol] 87.0 mg/dL Normal 74.0-118.0 [facility] Comment on above: Performed By: #### 5 559556942, 46114653, 7315115026, 2812802, 8427089 ####[facility] (DEFAULT)[address] [place] [address] 10827 Osmolality 283 mOsm/L Invalid Interpretation Code [facility] Comment on above: Performed By: #### 5 [id number] ####[facility] (DEFAULT)[address] [place] [address] 98562 Potassium [Moles/Vol] 3.8 mmol/L Normal 3.6-5.1 [facility] Comment on above: Performed By: #### 5 [id number] ####[facility] (DEFAULT)[address] [place] [address] 60282 Protein [Mass/Vol] 6.9 g/dL Normal 6.5-8.1 [facility] Comment on above: Performed By: #### 5 [id number] ####[facility] (DEFAULT)[address] [place] [address] 78017 Sodium [Moles/Vol] 141.0 mmol/L Normal 136.0-144.0 [facility] Comment on above: Performed By: #### 5 [id number] ####[facility] (DEFAULT)[address] [place] [address] 26847 Urea nitrogen [Mass/Vol] 19 mg/dL Normal 8-26 [facility] Comment on above: Performed By: #### 5 [id number] ####[facility] (DEFAULT)[address] [place] [address] 72354 Urea nitrogen/Creatinine [Mass ratio] 27.0 mg/mg High 4.6-16.2 [facility] Comment on above: Performed By: #### 5 [id number] ####[facility] (DEFAULT)[address] [place] [address] D-Dimeron 03-21-2021 D-Dimer 0.51 mg/L FEU High 0.19-0.50 [facility] Comment on above: Result Comment: Resu [...] Liver cirrhosis ? Performed By: #### 5 [id number] ####[facility] (DEFAULT)[address] [place] [address] 56768 ED Note - Physicianon 2020 ED Note [...] PCR (more content not included)... [facility] ED Note-Nursingon 03-21-2021 ED Note-Nursing Pt states she feels better, less short of breath. Pt is currently resting on cart awaiting CT PE study. [facility] ED Note-Nursing Pt arrives to ED [...] at this time. Pt resting on cart. [facility] TnI HSon 03-21-2021 Troponin I High Sensitivity 3 pg/mL Normal <=15 [facility] Comment on above: Result Comment: Male Baseline Delta 1Hr (Note pg/mL=ng/L) <20pg/mL 50-60% >20pg/mL 20% Female Baseline Delta 1Hr <15pg/mL 50-60% >15pg/mL 20% Other Baseline Delta 1Hr <18ng/mL 50-60% >18ng/mL 20% ([employer] [employer] Guidelines December 2017) Performed By: #### 5 [id number] ####[facility] (DEFAULT)[address] [place] [address] XR Chest 1 View Frontalon XR Chest [...] Phelan 03/21/21 11:22 p Technologist: Fred LAUGHLIN [facility] FolateOrdered By: Raul Swan on 11-29-2020 Folate 8.9 ng/mL >4.8 [employer] Phone: No Panel InformationOrdered By: Raul Swan on 11-29-2020 [employer] Phone: Vitamin [id number] By: Raul Swan on 11-29-2020 Cobalamin (Vitamin B12) [Mass/Vol] 753 pg/mL 232 - 1245 pg/mL [employer] Work Phone: CBC Auto DifferentialOrdered By: Laz Portillo on 09-20-2020 Absolute Eos # 0.40 BO.LT [facility] Work Phone: Absolute Immature Granulocyte NOT REPORTED [employer] Phone: Absolute Lymph # 1.60 BO.LT [facility] Work Phone: Absolute [place] # 0.30 BO.LT [facility] Work Phone: Basophils (Bld) [#/Vol] 0.10 10*3/uL [employer] Work Phone: Basophils/100 WBC (Bld) 1 % 0 - 2 % [employer] Phone: Differential Type NOT REPORTED [employer] Phone: Eosinophils/100 WBC (Bld) 5 % High 0 - 4 % [employer] Work Phone: Hematocrit (Bld) [Volume fraction] 38.0 % 36 - 46 % [employer] Phone: Hemoglobin.gastrointe stinal spec 1 Ql (Stl) 12.1 g/dL 12.0 - 16.0 g/dL [employer] Phone: Immature Granulocytes NOT REPORTED 0 % [facility] Work Phone: Interpretation and review of laboratory results Abnormal [employer] Phone: Lymphocytes/100 WBC (Bld) 25 % 24 - 44 % [employer] Phone: MCH (RBC) [Entitic mass] 29.5 pg 26 - 34 pg [employer] Work Phone: MCHC (RBC) [Mass/Vol] 31.8 g/dL 31 - 3 7 g/dL [employer] Phone: MCV (RBC) [Entitic vol] 92.8 fL 80 - 100 fL [employer] Work Phone: Monocytes/100 WBC (Bld) 5 % 1 - 7 % [employer] Work Phone: NRBC Automated NOT REPORTED per 100 WBC [employer] Work Phone: Platelet distribution width (Bld) [Ratio] 14.1 % 11.5 - 14.9 % [employer] Work Phone: Platelet Estimate NOT REPORTED [employer] Work Phone: Platelet mean volume (Bld) [Entitic vol] 8.3 fL 6.0 - 12.0 fL [employer] Work Phone: Platelets (Bld) [#/Vol] 147 10*3/uL Low [employer] Phone: RBC (Bld) [#/Vol] 4.09 10*6/uL 4.0 - 5.2 m/uL [employer] Work Phone: RBC (Bld) [#/Vol] NOT REPORTED [employer] Work Phone: Segmented neutrophils/100 WBC (Bld) 64 % 36 - 66 % [employer] Work Phone: Segs Absolute 4.20 [employer] Work Phone: WBC (Bld) [#/Vol] 6.6 10*3/uL [employer] Work Phone: WBC (Bld) [#/Vol] NOT REPORTED [employer] Work Phone: Comprehensive Metabolic Pane lOrdered By: Laz Portillo on 09-20-2020 Albumin [Mass/Vol] 4.1 g/dL 3.5 - 5.2 g/dL [employer] Phone: Albumin/Globulin Ratio NOT REPORTED [employer] Phone: ALP (Bld) [Catalytic activity/Vol] 48 U/L 35 - 104 U/L [employer] Work Phone: ALT [Catalytic activity/Vol] 17 U/L 5 - 33 U/L [employer] Phone: Anion gap [Moles/Vol] 10 mmol/L 9 - 17 mmol/L [employer] Phone: AST [Catalytic activity/Vol] 25 U/L <32 [employer] Phone: Comment on above: SPECIMEN MODERATELY HEMOLYZED, RESULTS MAY BE ADVERSELY AFFECTED Bilirubin [Mass/Vol] 0.68 mg/dL 0.3 - 1 .2 mg/dL [employer] Phone: Calcium [Mass/Vol] 9.5 mg/dL 8.6 - 10. 4 mg/dL [employer] Phone: Chloride [Moles/Vol] 105 mmol/L 98 - 10 7 mmol/L [employer] Phone: CO2 [Moles/Vol] 24 mmol/L 20 - 31 mmol/L [employer] Phone: Creatinine [Mass/Vol] 0.6 mg/dL 0.50 - 0.90 mg/dL [employer] Phone: Free PSA/Total PSA [Mass fraction] 6.9 g/dL 6.4 - 8.3 g/dL [employer] Phone: GFR >60 >60 mL/min [employer] Phone: GFR Non- >60 >60 mL/min [employer] Phone: GFR/1.73 sq M.predicted MDRD (S/P/Bld) [Vol rate/Area] [employer] Phone: Comment on above: Average GFR for 70 o r more years old: 75 mL/min/1.73sq m Chronic Kidney Disease: <60 mL/min/1.73sq m Kidney failure: <15 mL/min/1.73sq m eGFR calculated using average adult body mass. Additional eGFR calculator available at: http://www.[employer]/multiple_crcl_2012.htm GFR/1.73 sq M.predicted MDRD (S/P/Bld) [Vol rate/Area] NOT REPORTED [employer] Phone: Glucose [Mass/Vol] 97 mg/dL 70 - 99 mg/dL [employer] Phone: Potassium [Moles/Vol] 5.6 mmol/L High 3.7 - 5.3 mmol/L [employer] Phone: Comment on above: SPECIMEN MODERATELY HEMOLYZED, RESULTS MAY BE ADVERSELY AFFECTED Sodium [Moles/Vol] 139 mmol/L 135 - 144 mmol/L [employer] Phone: Urea nitrogen (BldV) [Mass/Vol] 18 mg/dL 8 - 23 mg/dL [employer] Phone: Urea nitrogen/Creatinine (Bld) [Mass ratio] NOT REPORTED [employer] Phone: ECHO Complete 2D W Doppler W ColorOrdered By: Laz Portillo on 09-20-2020 [facility] Transthoracic Echocardiography Report (TTE) Patient Name QUINTIN Date of Study 09/20/2020 [facility] Date of 1950 Gender Female Age 70 year(s) Race Room Number Height: 64.96 inch, 165 cm Corporate ID [id number] Weight: 160 pounds, 72.6 kg # Patient Acct [id number] BSA: 1.8 m^2 BMI: 26.66 kg/m^2 # MR # [id number] Color Control Operator Elaine Miles Interpreting Osmar Pryor Physician Fellow Referring Nurse Practitioner Interpreting Referring Physician SUNG AGUAYO* Type of Study TTE procedure:2D Echocardiogram, M-Mode, Doppler, Color Doppler. Procedure Date Date: 09/20/2020 Start: 07:43 AM Study Location: [facility] Technical Quality: Fair visualization Indications:Syncope. History [...] velocity:0.07 m/s Lateral Wall E' velocity:0.10 m/s [employer] Work Phone: Tao, Mhpn Incoming Cardio Results From [facility]/Ge - 09/20/2020 10:17 AM EDT [facility] Transthoracic Echocardiography Report (TTE) Patient Name QUINTIN Date of Study 09/20/2020 NU Ibarra Date of 1950 Gender Female Age 70 year(s) Race Room Number Height: 64.96 inch, 165 cm Corporate ID [id number] Weight: 160 pounds, 72.6 kg # Patient Acct [id number] BSA: 1.8 m^2 BMI: 26.66 kg/m^2 # MR # [id number] Color Control Operator AlpaDionne garciahel Interpreting Osmar Pryor Physician Fellow Referring Nurse Practitioner Interpreting Referring Physician LAZ PORTILLO, SUNG Fellow JANNETH* Type of Study TTE procedure:2D Echocardiogram, M-Mode, Doppler, Color Doppler. Procedure Date Date: 09/20/2020 Start: 07:43 AM Study Location: [facility] Technical Quality: Fair visualization Indications:Syncope. History [...] velocity:0.07 m/s Lateral Wall E' velocity:0.10 m/s [employer] Phone: Lipid PanelOrdered By: Iker Portillo on 09-20-2020 Cholesterol [Mass/Vol] 219 mg/dL High <200 [employer] Phone: Comment on above: Cholesterol Guidelines: <200 Desirable 200-240 Borderline >240 Undesirable Cholesterol in HDL [Mass/Vol] 61 mg/dL >40 [employer] Phone: Comment on above: HDL Guidelines: <40 Undesirable 40-59 Borderline >59 Desirable Cholesterol in LDL [Mass/Vol] 129 mg/dL 0 - 130 mg/dL [employer] Phone: Comment on above: LDL Guidelines: <100 Desirable 100-129 Near to/above Desirable 130-159 Borderline >159 Undesirable Direct (measured) LDL and calculated LDL are not interchangeable tests. Cholesterol in VLDL [Mass/Vol] NOT REPORTED 1 - 30 mg/dL [employer] Phone: Cholesterol.total/Cho lesterol in HDL [Mass ratio] 3.6 {ratio} <5 [employer] Phone: Triglyceride [Mass/Vol] 145 mg/dL <150 [employer] Phone: Comment on above: Triglyceride Guidelines: <150 Desirable 150-199 Borderline 200-499 High >499 Very high Based on AHA Guidelines for fasting triglyceride, February 2012. No Panel InformationOrdered By: Laz Portillo on 09-20-2020 Interpretation and review of laboratory results Abnormal [employer] Phone: TSH without ReflexOrdered By : Laz Portillo on 09-20-2020 TSH Qn 1.84 m[IU]/L [employer] Phone: VL Upper Extremity Venous Du plex LeftOrdered By: Laz Portillo on 09-20-2020 [employer], [employer] Incoming Cardio Results From [facility]/Ge - 09/20/2020 11:37 PM EDT [facility] Vascular Upper Extremities Veins Procedure Patient Name QUINTIN Date of Study 09/20/2020 NU Ibarra Date of 1950 Gender Female Age 70 year(s) Race Room Number Corporate ID # [id number] Patient MR # [id number] Color Control Operator Roberto Henning Interpreting Physician Dread Hameed Referring [...] ! ! + --+ --+ --- + [employer] Work Phone: Coding Summaryon 08-24-2020 Coding Summary HTMLBase 64 DbajflqkMGn6sRo+PGhlYWQ+ DK7PFWNiV61djABlyE6HV0sD ES6IBRLYTGUAHL7CXD3jjXX6 NDunU6UbetRk MjpydHPwBW73AJc0PPL5fFpn LYqgyC1reWYxM8n8AsLwOH31 cU06ELlzNHJoFkG6SuOyvkto bWFy P8cwIgEnjRUnZnx+PHRhYmxl IHdpZHRoPScxMDAlJyBzdHls CB5oTu3aAFWsIXKcoCbgePEa OiBj a3qmWPPmHBptOJ5usSifQ5Az dVT8FPRbx6b9Ie17oAM+PHRk WDG1kTudGDzin899QfYbl6cu IDM3 kCLiZByeLGY1Q94oh7H5DWTm HDZuSLO7rLR6oN1cwYffdjjv T7HyhFTnNhB4GBH6oDMflI8j bGln glxrhT5dIij+A07VSM5RUTBY LE7LTbz3D5VuLirwvBP+PC90 SCAtUZ36hZZiiKAdy3tagOc2 JzEw FLLtRGC8qXfzQXzgg1VgXDMh I28gkWXxp9E1OCLasSfxiZPa KzUxxBC7mY9lKAmihplia4qm dzsn Pfhpu6ulol44uN36S13zLUbv AYMmFJJ3WLXgYXBooWgrxs7z vT0uLt2+TTqov4gwj3kqeRz5 IjIw BSJkaxQggYmmBJE8c1SuSo64 C7EchAepl3DyBmx2zo22cEAy q4E3tMS0ATdiFYOvmP9cBXmp ZnQ6 NFNfKxDgrK14rGSvHOvwBl4x jVvztSsjFQ4rOIAxszyiLWUa gR9dBIIewPKahVgfJR9zYBIb bjtm j198ZaQaUPU1XUFncEKhA7Vi eZ4oCaIjQHLiTBQiE8IbnQHx GLkqY866RDvjPlF3VXBjdcBg Y2Fs GYJrhIupUtC6j5I5Fp1Pq4Ok hoqnIRH8EZpsWJJ1UmJ4AfTi LeT7Q8DhZuj5RHIfeWqqMQ6z J3Bh CANfthefwrcemEK8NINlGBKy yW85qFAdGNeeFe3qh2S6e660 OHVuQHGwoX28Wt7yhKobPFEf dCBU wV9mjektk5tecdzsHlJuSNVk ELq5QSx1NZCryTehBfVwZNM8 KxN6SIE6uJNtiE4mvNuoqucp dG9w Oyc+Y87mpX7vZPF2KAA9dyao IVLhzdDkXV40CH00W0LgWqmh dGFibGU+NFPeeoOooMhwXD5o YmFj s7owf7KyCDuzS0KmEAKyMDwi Zam8EKPyHHX9fET0iL1jWHGp RKvrg7T4lTA6U0EgmqKylw4t b2xs IVFmRAanB96coGSrk8P3CAWc qWK5BLCxyOzuSuTjhJ80Aoq+ KUBqbTnby9WdCzcot4pfg0av dGg9 CyGyPWToegNurAtgYOJ4z5Um Un30Z00vDVhkEQGhGHZvFIMw ORKpoCqmwt8wmF5yPw7+PGNv bCB3 kUA4rS1cTDGcRvS7YUhdK651 HiItiRTgHrtnb8ubz3jssWc3 AcNxYPLvkxCxgZgzBIA3w0Mq Lz48 V31yDOufMRVmHNRbWMBuGLEu hHmozx7dkJ9sNa7+QJ2uy4dg sj39fZ13hGQ+BTGbVFM1vNna PSdw XPIchB4mSDxeDcM5FWBhWiLq rM10qFRbOLmxKl0zkDgiiRfu YT0yWLMqmldhb603SbRui7zj IDEw vRBrRBheKVT6E97fs9H9MRAu OQLxMVJ7lES2hM9nyVeqropo bGVmdDsgdmVydGljYWwtYWxp Z246 IHRvcDsnPlBhdGllbnQgTmFt FNy8D9NePkh4JZNatIfmCI3h nOMpQAsuFi0utZklvRubCZ3j NTBp bxnse437JhVnd1quMQJmeRMw YEoeKAR4H07ll9K2LBJnQZBa MEA6xZH6uR2lcWmfpnunrRDv dDsg rfWhoHbkRNstWXhhI779KGJp lChcXvRquhDcFNQhlWE3DR57 KG99kMSfu2O4rJR1P5JgHITx bmct shwfqYJ8MIPsJDYqzH78Yt3p vAerLp8gOTZuFID1EJJmiSBq N2EfoD3aFlXqPDNfRWZaF1Be eHQt XRagJ970MTdaYgO6ESAyavNd Z6QcUHOdbErqTdW0g7P0Wd9U O6U1XD37WL08xCLwh6N2vES8 J3Bh XJNfdnbmginjvVF9FKJxPNXa dD44Mi1iwKuhGz7zSGGmJEB1 CGHlbKFxO1WfhD4aKjMaHROs MDAw R9EqoOXeXLfqN959RQdzWkW2 CIZclgYwN6CyJISpfMlzAvX2 v2N3Lj4ZHBw1BO41YG82wISu c3R5 pZY9V7EhNCVixuecdwohtXS1 XDMpBJKwzN23Ok4lqQcnVo0k JDDvGRA9RBDofWHaU4MdyX7v OiAj URGvQSGuW1DymAUsFLsnX454 AKtjHaR1WGQymhVnG6GjTISr pKibMaR2m0B3Kd2OEFDrMU13 IFR5 sTP1RL10DJ04L8UkWcdroCJg bGU+PHRhYmxlIHdpZHRoPScx RBNcQzBzbYupZH2yXr3jQQOc LWNv wNgvyNOtAnAea7pcKZByDItq TW1jxOzqV7EwrHM1AQPof7c3 Pk86K23tG0HcvAE+PGNvbCB3 aWR0 wS1kSoJsLqD9ECjlX230AzXd cVHyCwsbw0iip5cclFe1YhU9 PUPxojTquNuvEJU4j6MlUw95 Y29s IHdpZHRoPSIxNSUiIHZhbGln gz8wgX3mZy0+KTBdbRZ9pHW9 mN1dMsXsJcV0GZvkG857WtVv cCIv Blmik7hci9bkvFx6EbWtBOLe zjHllEjwVSZ0h9RyIo60N2Wp aFecd3WsGwp4zh95mKYfr1H7 bGU9 N5OdZVUhqfqelAApcLaiDR5w VSHyfiyyAKAbeN4fXZNfN1l4 QlOsOaG5DJbaF0QoyrW4KPJr cHQg HWlsBJN2B47im1R1WVJfXBLw MRG5rQC1xB0mhWfcsjxghVYv oNwmzmUqrDpxLQqaXTqaW032 IHRv wCxtUXBsuO2nOOVlrASpmHng RO0eJAByoijxVibZPiZXNKTR NXRJHWOVWN8GBFTDEG01DK26 dGQg v6I2oXA9D6VmDOWttywspzjg yEN3MJFaUOEicJ53lBUcXYye Lt9fd1H0x191TAKzXMXezV38 Zm9u nOmhYKHehILAbK4fddynv2gg ypqlEeKcOUSxUTl2JBc9ORIn qIznYsSkXJG4MrK7XAP6sATl bC1h pDmqhgjtiG7mTpc+MTAvMTIv DLi7FTkvrXU+IHZyPGD1kKjl VIlkRSHmkN2zJMVgX1n2YsDg LjA1 OIjsJ1KfTJOfrbyvSn00qN4j WwAlOcM4JSitG2CsrfW2AOOe bHWeYMtiIHQ6C14fy8V9EPEb MDAw SXK8vCC4eW2jxYatuioarEGk dQbieiPqpPocRJnlFOyjK159 JKUfbYiiJvzmLAjxDOHyAX66 ZD48 tUGib5J7cWV4R3TqYHPuxqya cwnbpOJ6GHCpPRJfwA20yQHw OEfzUs2gp5I0h069JXLsUGGn aW47 Hu4okWgpQMPjcLBApE4iycfd d3pbvnrvJlTqXCYoRFq7CWa8 EEDhlKrwZvJpZJX2JsJ5DFK7 aWNh aV6ilDmvgsrxaK3jDtp+RkVN ZUoLOK19GI02gLZqv2L6rCY3 X3ElYKSklykavqshmGV7QATk MDUw pW31iQUnCLulMe9ej9Y9m149 BAVmRWVqpQ24Tx6isMlhOTWa sYCZxE2vuhnbv4xgruvwSlTl MDAw WQh0IUi3VRIcqKxsItAiCCW4 SaF3HUY5eEQldN3kcWaroiwl pN8sGrs+AfKiyQEtmQ9mOX67 dHBh gBdlnsR5M5WiVwfycDX+PC90 PCXpEX63aQAfdBRoa1nvwFv4 SzYoXYTzQVO1eZqpPAqav4Sx ZXIt R56lhIMjq8O3RRViwGeguHAl RzXfwTQ4zE1cKYbcbzeaf2qi jrchPadai3jxsi08yR62A53m IHdp ZZShRWMxGBGuWOEydEggry8n wN4oBi4+UVQmhTL8aRQ9jE2q EbZyQqE6ZXbiU961ToXasLVs Pjxj j9vgw6otiVl7JqNgGFHxeoRt bNocLZT8d2CaLz42P25yQKxb HPPfVTUvKLAjORZaiVchbh1k dG9w Ii8+EB2cr9sgsu38aZ51bIM+ BAGmYFN4jOozFKxzDXFpyH2q DWjsJzG1RXWiDvGzhN46tIWr ZGlu Vy0sgLjtzMolWE6vOYOgrpim b134XcLqj9quRTQwiXUrDQje ROS0T82id6B5DRPfHMMfODD7 dGV4 sN4tnSciwosxbEMwbNzirdSy aVsfAVbwXNvjN869FMRloQtz HnChrHUjY3bnmpZOTP3zSmuk dGQ+ UGTxUTQ4wCpsTEbaKTBpgW6x WVEsJ0f5PjPjYoP9ELceH0Xu kyS8UXAbqIZhAEVoqKLYdX6y cztj j6osoneiGtLzZRUbGUq5PEc5 OXZedNplXaLyWUM0VeZ4XSE1 wKKptO8fsGgzhiargK3pFam+ RklO OjwvdGQ+NXVfKQG6cYorLWdd SYNobN8bDSDwD8z1UjLpKoJ0 FUayK7OfmvJ7ELSydTFaDCBx dCBU gP7vhyzdw1avcrnpIoVpSDCf PMq0HOk8FIHwoOluIeApPWE8 CfB2FIL9nTCncG8lfXtblvos dG9w Oyc+TVJOOjwvdGQ+PHRkIHN0 yWvrBLvcIKGnhX9qLQGtW7a4 ShSgUmN6ADccT9DbtlJ4MBHk bGQg BFEijQEQoQ7guyojy0ntdmmx MyAkXYCbTBl2GIp0AUNkiPqs LuHgJOT4IoE6AWL3oMEkfD2d bGln xeadiG7qAba+ZJI4EDS2KV77 LY39U0WzIgcetJIixEE+PHRh YmxlIHdpZHRoPScxMDAlJyBz dHls ZT0 (more content not included)... [facility] Coding Summaryon 05-30-2020 Coding Summary CODING DATE: 021 [facility] STATUS: Home PAYOR: Medicare ADMIT DX: [...] Date Saved: 05/30/2020 03:43 pm [facility] Physical Therapy Noteon 05-13 Physical Therapy Note [id number] TIFF [facility] ED Clinical Summaryon 2020 ED Clinical Summary [facility] ? Urgent Care [address] [place] [id number] Clinical Summary PERSON INFORMATION Name: NU RIBEIRO Age: 70 Years Sex: FEMALE : 1950 MRN: Acct#: Visit Reason: UC - Dysuria; PAINFUL URINATION Arrival: 05/20/2020 17:32:27 Discharge: 05/20/2020 18:13:00 LOS: 000 00:41 Check In: 05/20/2020 17:32:27 Checkout: 05/20/2020 18:13:00 [facility]: [facility] [place] [facility] [id number] PCP: Laz Portillo MD PROVIDER INFORMATION Provider [...] EDUCATION INFORMATION Instructions: Urinary Tract Infection, Adult, Csnc-ar-Aadt Follow-Up: With: Address: When: Laz Portillo [address] [place] [id number] Business (1) Comments: Begin on the bactrim this is your antibiotic, take as written until gone Drink plenty of water, stay hydrated Follow-up with your primary care provider in 5-7 days for reevaluation DIAGNOSIS: UTI (urinary tract infection) Patient Understands: Yes - Patient/family/caregiver verbalizes understanding of instructions given Comment: Normal [facility] ED Patient Summaryon 021 ED Patient Summary [facility] ? Urgent Care [address] [place] [address] PATIENT DISCHARGE INSTRUCTIONS Patient Information Name: NU RIBEIRO Age: 70 Years Date of : 1950 Reason For Visit: UC - Dysuria; PAINFUL URINATION Arrival Time: 05/20/2020 17:32:27 Primary Care Physician: Laz Portillo MD Attending Physician: Kristopher Conway Comment: Patient Education With: Address: When: Laz Portillo [address] [place] [id number] [employer] (1) Comments: Begin on the bactrim this [...] these instructions at home: Medicines ? Take yxdq-wqd-mjxcbtb and prescription medicines only as told by [...] 10/15/2008 Document Revised: 04/16/2019 Document Reviewed: 11/06/2018 [employer] Patient Education ? 2019 [employer]. Medication Information: The exam and treatment you received today in the [facility] Emergency Department were for an urgent problem and are not intended as complete care. It is important for you to follow up with a doctor, nurse practitioner (more content not included)... Normal [facility] UA Cmcni6vw 05-20-2020 UA Bacteria None [facility] Comment on above: Order Comment: Urina lysis Microscopic order added on by [employer] Expert Rules system. Performed By: #### 5 [id number] ####[facility] (DEFAULT)[address] [place] [id number] UA RBC 0-2 [facility] Comment on above: Order Comment: Urina lysis Microscopic order added on by Discern Expert Rules system. Performed By: #### 5 [id number] ####[facility] (DEFAULT)[address] [place] [id number] UA Squam Epi Rare [facility] Comment on above: Order Comment: Urina lysis Microscopic order added on by Discern Expert Rules system. Performed By: #### 5 [id number] ####[facility] (DEFAULT)[address] [place] [id number] UA WBC 0-2 [facility] Comment on above: Order Comment: Urina lysis Microscopic order added on by [employer] Expert Rules system. Performed By: #### 5 [id number], [id number] ####[facility] (DEFAULT)[address] [place] [address] UA w Culture if Ind Standard on 05-20-2020 Breakpoint UA [facility] Comment on above: Performed By: #### 5 [id number] ####[facility] (DEFAULT)[address] [place] [address] Color (U) Meigs [facility] Comment on above: Result Comment: Test cannot be satisfactorily determined due to intensely colored urine. Performed By: #### 5 [id number] ####[facility] (DEFAULT)[address] [place] [address] Culture? Not Indicated Invalid Interpretation Code [facility] Comment on above: Performed By: #### 5 [id number], [id number] ####[facility] (DEFAULT)[address] [place] [address] Glucose (U) [Mass/Vol] 250 mg/dL [facility] Comment on above: Performed By: #### 5 [id number], [id number] ####[facility] (DEFAULT)[address] [place] [address] Ketones Ql (U) TRACE [facility] Comment on above: Performed By: #### 5 [id number], [id number] ####[facility] (DEFAULT)[address] [place] [address] 12085 Micro? Indicated Normal [facility] Comment on above: Performed By: #### 5 [id number], [id number] ####[facility] (DEFAULT)[address] [place] [address] 71077 UA Bilirubin Negative Normal [facility] Comment on above: Performed By: #### 5 [id number], [id number] ####[facility] (DEFAULT)[address] [place] [address] 53893 UA Blood Negative Normal NEGATIVE [facility] Comment on above: Performed By: #### 5 [id number], [id number] ####[facility] (DEFAULT)[address] [place] [address] 60294 UA Clarity CLEAR Normal CLEAR [facility] Comment on above: Performed By: #### 5 [id number], [id number] ####[facility] (DEFAULT)[address] [place] [address] 93654 UA Leuk Est Negative Normal NEGATIVE [facility] Comment on above: Performed By: #### 5 [id number], [id number] ####[facility] (DEFAULT)[address] [place] [address] 37200 UA Nitrite Positive Abnormal NEGATIVE [facility] Comment on above: Performed By: #### 5 [id number], [id number] ####[facility] (DEFAULT)[address] [place] [address] 05178 UA pH 5.0 Normal 5-8 [facility] Comment on above: Performed By: #### 5 [id number], [id number] ####[facility] (DEFAULT)[address] [place] [address] 72723 UA Protein 100 Abnormal NEGATIVE [facility] Comment on above: Performed By: #### 5 [id number], [id number] ####[facility] (DEFAULT)[address] [place] [address] 60703 UA Spec Grav 1.020 Normal 1.001-1.035 [facility] Comment on above: Performed By: #### 5 [id number], [id number] ####[facility] (DEFAULT)[address] [place] [address] UA Urobilinogen >=8.0 Invalid Interpretation Code 0.2-1.0 [facility] Comment on above: Performed By: #### 5 [id number], [id number] ####[facility] (DEFAULT)[address] [place] [address] Urine Source Clean Catch Normal [facility] Comment on above: Performed By: #### 5 [id number], [id number] ####[facility] (DEFAULT)[address] [place] [address] Urgent Care Note- Provideron 05-20-2020 Urgent Care [...] Lab Flowsheet 05/20/2020 17:35 EST UA Color Meigs UA Clarity CLEAR UA Glucose 250 mg/dL [...] cells patient treated with Bactrim for UTI. Meigs color and glucose present likely due to Azo treatment. Pt is not diabetic. Home care instructions provided, pt stated understanding of home care instructions. Follow-up with primary care provider in 5-7 days sooner if worse. Impression and Plan Diagnosis UTI (urinary tract infection) ([id number] N39.0, Discharge, Medical) Plan Prescriptions: Launch prescriptions Pharmacy: Bactrim DS 800 mg-160 mg oral tablet (Prescribe): 1 tab(s), PO, BID, for 3 day(s), 6 tab(s), 0 Refill(s). Patient was given the following educational materials: Urinary Tract Infection, Adult, Gigc-pe-Ntsc, Urinary Tract Infection, Adult, [id number]-[id number]-[id number]. Follow up with: Laz Ragothaman Begin on the Cipro this is your [...] prescription, Patient indicated understanding of instructions. Normal [facility] 021 Urgent Care Record [facility] ? Urgent Care [address] [place], [place] [id number] PATIENT DISCHARGE INSTRUCTIONS Patient Information Name: NU RIBEIRO Age: 70 Years Date of : 1950 Reason For Visit: UC - Dysuria; PAINFUL URINATION Arrival Time: 05/20/2020 17:32:27 Primary Care Physician: Laz Portillo MD Attending Physician: Kristopher Conway Comment: Visit Diagnosis: Diagnoses This Visit UC - Dysuria ([id number]) UTI (urinary tract infection) (N39.0) If you [...] With: Address: When: Laz Portillo [address] [place] [address] Business (1) Comments: Begin on the bactrim this is your antibiotic, take as written until gone Drink plenty of water, stay hydrated Follow-up with your primary care provider in 5-7 days for reevaluation Medication Information: The exam and treatment you received today in the [facility] were for an urgent problem and are not intended as complete care. It is important for you to follow up with a doctor, nurse practitioner, or physician?s graphic design assistant for ongoing care. If your symptoms [...] so we can reach you if necessary. [facility] has provided you with a complete list of medications post discharge. Please inform your manager bank/provider of your visit and for further instruction on these medications. Any specific questions regarding your chronic medications and dosages should be discussed with your primary care physician(s) and/or pharmacist. New Medications [facility], [facility] [place], [place] [id number], [phone] sulfamethoxazole-trimeth oprim (Bactrim DS 800 mg-160 mg [...] medi (more content not included)... [facility] Provider Orderson 04-04-2020 Provider Orders [id number] [id number] TIFF [facility] CBC Auto Differentialon 01-12 Basophils (Bld) [#/Vol] 0.10 10*3/uL [place] Basophils/100 WBC (Bld) 1 % 0 - 2 % [place] Differential Type NOT REPORTED [place] Eosinophils (Bld) [#/Vol] 0.40 10*3/uL [place] Eosinophils/100 WBC (Bld) 7 % High 0 - 4 % [place] Erythrocyte distribution width (RBC) [Ratio] 12.7 % 11.5 - 14.9 % [place] Hematocrit (Bld) [Volume fraction] 38.4 % 36 - 46 % [place] Hemoglobin (Bld) [Mass/Vol] 13.3 g/dL 12 - 16 g/dL [place] Interpretation and review of laboratory results Abnormal [place] Lymphocytes (Bld) [#/Vol] 2.00 10*3/uL [place] Lymphocytes/100 WBC (Bld) 34 % 24 - 44 % [place] MCH (RBC) [Entitic mass] 30.6 pg 26 - 34 pg [place] MCHC (RBC) [Mass/Vol] 34.6 g/dL 31 - 3 7 g/dL [place] MCV (RBC) [Entitic vol] 88.4 fL 80 - 100 fL [place] Monocytes (Bld) [#/Vol] 0.40 10*3/uL [place] Monocytes/100 WBC (Bld) 7 % 1 - 7 % [place] Platelet mean volume (Bld) [Entitic vol] 7.3 fL 6 - 12 fL [place] Platelets (Bld) [#/Vol] 226 10*3/uL [place] Platelets (Bld) [#/Vol] NOT REPORTED [place] RBC (Bld) [#/Vol] 4.34 10*6/uL 4 - 5.2 m/uL [place] RBC morphology finding Nom (Bld) NOT REPORTED [place] Segmented neutrophils/100 WBC (Bld) 51 % 36 - 66 % [place] Segs Absolute 3.00 [place] WBC (Bld) [#/Vol] NOT REPORTED per 100 WBC [place] WBC (Bld) [#/Vol] 5.9 10*3/uL [place] WBC Morphology NOT REPORTED [place] Comprehensive Metabolic Pane justino 02-03-2020 Albumin [Mass/Vol] 4.3 g/dL 3.5 - 5.2 g/dL [place] Albumin/Globulin [Mass ratio] NOT REPORTED [place] ALP [Catalytic activity/Vol] 54 U/L 35 - 104 U/L [place] ALT [Catalytic activity/Vol] 14 U/L 5 - 33 U/L [place] Anion gap [Moles/Vol] 9 mmol/L 9 - 17 mmol/L [place] AST [Catalytic activity/Vol] 15 U/L <32 [place] Bilirubin Ql (U) 1.20 mg/dL 0.3 - 1.2 mg/dL [place] Bun/Cre Ratio NOT REPORTED [place] Calcium [Mass/Vol] 10.1 mg/dL 8.6 - 10. 4 mg/dL [place] Chloride [Moles/Vol] 102 mmol/L 98 - 10 7 mmol/L [place] CO2 [Moles/Vol] 27 mmol/L 20 - 31 mmol/L [place] Creatinine [Mass/Vol] 0.7 mg/dL 0.5 - 0.9 mg/dL [place] GFR >60 >60 mL/min [place] GFR Non- >60 >60 mL/min [place] GFR/1.73 sq M predicted among non-blacks MDRD (S/P/Bld) [Vol rate/Area] [place] Comment on above: Average GFR for 70 o r more years old: 75 mL/min/1.73sq m Chronic Kidney Disease: <60 mL/min/1.73sq m Kidney failure: <15 mL/min/1.73sq m eGFR calculated using average adult body mass. Additional eGFR calculator available at: http://www.[employer].ConceptoMed/multiple_crcl_2012.htm GFR/1.73 sq M predicted among non-blacks MDRD (S/P/Bld) [Vol rate/Area] NOT REPORTED [place] Glucose [Mass/Vol] 88 mg/dL 70 - 99 mg/dL [place] Potassium [Moles/Vol] 4.7 mmol/L 3.7 - 5.3 mmol/L [place] Protein [Mass/Vol] 7.1 g/dL 6.4 - 8.3 g/dL [place] Sodium [Moles/Vol] 138 mmol/L 135 - 144 mmol/L [place] Urea nitrogen [Mass/Vol] 21 mg/dL 8 - 23 mg/dL [place] Otheron 02-03-2020 Immature granulocytes (Bld) [#/Vol] NOT REPORTED [place] TSH without Reflexon 020 TSH Qn 1.69 m[IU]/L [place] VL Upper Extremity Venous Du plex Lefton 02-03-2020 [facility] Vascular Upper Extremities Veins Procedure Patient Name QUINTIN Date of Study 02/03/2020 NU Ibarra Date of 1950 Gender Female Age 69 year(s) Race Room Number OP Corporate ID [id number] # Patient Acct [id number] # MR # [id number] Color Control Operator Yomi Alexander Interpreting Dread Hameed Physician Referring Referring SUNG AGUAYO Nurse Physician JANNETH* Practitioner Procedure Type of Study: Veins: Upper Extremities Veins, Venous Scan Upper Left. Indications for Study:Swelling. Patient Status:Out Patient. Technical Quality:Adequate visualization. Conclusions Summary No evidence of superficial or deep venous thrombosis in the left upper extremity. Signature Electronically signed by Dread Hameed([facility] physician) on 02/03/2020 09:17 PM Findings: Right [...] !Phasic ! ! + --+ --+ ---+ [facility]- [place], [place] Tao, Mh[employer] Incoming Cardio Results From [employer] - 02/03/2020 9:17 PM EDT [facility] Vascular Upper Extremities Veins Procedure Patient Name QUINTIN Date of Study 02/03/2020 NU Ibarra Date of 1950 Gender Female Age 69 year(s) Race Room Number OP Corporate ID [id number] # Patient Acct [id number] # MR # [id number] Color Control Operator Yomi Alexander Dread Alexis Physician Referring Referring LAZ PORTILLO, COPAN Nurse Physician JANNETH* Practitioner Procedure Type of [...] --+ --+ --- + [facility] (MIN 2 VIEW S)on 11-12-2019 1. No acute bony or joint abnormality 2. 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 The [place] [employer] recommends annual mammograms for women 40 years and older. [facility] EXAM[facility]ATION: DIAGNOS TIC DIGITAL LEFT BREAST MAMMOGRAM, [...] for a bilateral mammogram in January 2020. [employer] [facility] Tao, M[employer] Incoming Radiant Results From [employer] - 07/31/2019 6:05 PM EDT EXAMINATION: DIAGNOSTIC [...] to the patient regarding the results. The [place] [employer] recommends annual mammograms for women 40 years and older. [facility] Otheron 01-30-2019 No evidence of malignancy. Post [...] sent to the patient regarding the results. [facility] [place] EXAMINATION: BILATER AL DIGITAL DIAGNOSTIC MAMMOGRAM; TARGETED [...] prior study performed in August reportedly aspirated. [place] Tao, Mh[employer] Incoming Radiant Results From [employer] - 01/30/2019 4:33 PM EDT EXAMINATION: BILATERAL [...] sent to the patient regarding the results. [facility] STEREO BREAST BX W LOC D EVICE 1ST LESION LEFTon 12-31-2017 [facility] STEREO BREAST BX W LOC DEVICE 1ST [...] by:Lizbeth Lees MD12/30/17Edited Result - FINAL Normal [facility] MAMMOGRAM POST BX CLIP PLACE [...] by:Lizbeth Lees MD12/30/17Edited Result - FINAL Normal [facility] Surgical Pathologyon 08-16-2 018 Surgical Pathology (NOTE)[id number] Y LABORATORIESCONSULTING PATHOLOGISTS CORPORATIONANATOMIC [id number] [place], [place] [id number] Fax: SURGICAL PATHOLOGY CONSULTATIONPatient Name: [facility] Rec: [id number] Number: [id number]: 12/26/2017Received: 12/26/2017Reported: 12/27/2017 12:48-- Diagnosis --LEFT BREAST, 1:00, STEREOTACTIC CORE NEEDLE BIOPSIES: -PROMINENT STROMAL SCLEROSIS. -FOCAL ATYPICAL LOBULAR HYPERPLASIA. -NEGATIVE FOR DUCTAL HYPERPLASIA OR MALIGNANCY.Jonny Herrmann M.D.Electronically Signed Out jet/12/27/2017Clinical InformationPre-op Diagnosis: LT BREAST MASS Operative Findings: LEFT 1:00Operation Performed: STEREO BXSource of Specimen1: LEFT 1:00Gross Description NU RIBEIRO, LT BREAST 1:00 Pale yellow-red cores andfragments of fibrofatty tissue, 5.0 x 4.0 x 0.3 cm in aggregate. Entirely 2cs. jg tmMicroscopic DescriptionSections of fibroglandular breast tissue show prominent stromalsclerosis. Focal lobules show slight expansion of epithelial cells.There is no evidence of carcinoma in situ or invasive malignancy. Slides were reviewed with a second pathologist (MILENA) who agrees withthe diagnosis. Normal [facility] Comment on above: Performed By: #### P PPVS ####[place] [id number] Vital Signs Date Time Vital Sign Value Performing Clinician Facility 02-27-2024 13:17-0400 Body height 158.8 cm Desiree Bhakta MD Work Phone: [facility] 02-27-2024 13:17-0400 Body mass index (BMI) [Ratio] 28.98 kg/m2 Desiree Bhakta MD Work Phone: [facility] 02-27-2024 13:17-0400 Body weight 73.03 kg Desiree Bhakta MD Work Phone: [facility] 02-27-2024 13:17-0400 Diastolic blood pressure 76 mm[Hg] Desiree Bhakta MD Work Phone: [facility] 02-27-2024 13:17-0400 Systolic blood pressure 120 mm[Hg] Desiree Bhakta MD Work Phone: [facility] 01-20-2024 08:30-0400 Body height 158.8 cm Jr. Stepanic DO Work Phone: [facility] 01-20-2024 08:30-0400 Body mass index (BMI) [Ratio] 28.98 kg/m2 Jr. Stepanic DO Work Phone: [facility] 01-20-2024 08:30-0400 Body weight 73.03 kg Jr. Stepanic DO Work Phone: [facility] 07-19-2023 10:29-0500 Body temperature 97.11 [degF] Gato Cano MD Work Phone: [facility] 07-19-2023 10:29-0500 Body weight 74.9 kg Gato Cano MD Work Phone: [facility] 07-19-2023 10:29-0500 Diastolic blood pressure 66 mm[Hg] Gato Cano MD Work Phone: [facility] 07-19-2023 10:29-0500 Heart rate 69 /min Gato Cano MD Work Phone: [facility] 07-19-2023 10:29-0500 Respiratory rate 18 /min Gato Cano MD Work Phone: [facility] 07-19-2023 10:29-0500 SaO2% (BldA) [Mass fraction] 100 % Gato Cano MD Work Phone: [facility] 07-19-2023 10:29-0500 Systolic blood pressure 134 mm[Hg] Gato Cano MD Work Phone: [facility] 01-11-2023 14:27-0400 Body height 161.3 cm Allyssa Lopez APRN.STITCHER AROUND Work Phone: [facility] 01-11-2023 14:27-0400 Body temperature 97.7 [degF] Allyssa Lopez APRN.STITCHER AROUND Work Phone: [facility] 01-11-2023 14:27-0400 Body weight 73.75 kg Allyssa Lopez APRN.STITCHER AROUND Work Phone: [facility] 01-11-2023 14:27-0400 Diastolic blood pressure 59 mm[Hg] Allyssa Lopez GENERAL FREIGHT AGENT.STITCHER AROUND Work Phone: [facility] 01-11-2023 14:27-0400 Heart rate 75 /min Allyssa Lopez APRN.STITCHER AROUND Work Phone: [facility] 01-11-2023 14:27-0400 Respiratory rate 16 /min Allyssa Lopez APRN.STITCHER AROUND Work Phone: [facility] 01-11-2023 14:27-0400 SaO2% (BldA) [Mass fraction] 98 % Allyssa Lopez APRN.STITCHER AROUND Work Phone: [facility] 01-11-2023 14:27-0400 Systolic blood pressure 125 mm[Hg] Allyssa Lopez APRN.STITCHER AROUND Work Phone: [facility] 08-16-2022 14:40-0400 Body temperature 97.3 [degF] Josesito Basurto MD Work Phone: [facility] [employer] 08-16-2022 14:40-0400 Diastolic blood pressure 74 mm[Hg] Josesito Basurto MD Work Phone: [employer] 08-16-2022 14:40-0400 Heart rate 55 /min Josesito Basurto MD Work Phone: [facility] [employer] 08-16-2022 14:40-0400 Respiratory rate 12 /min Josesito Basurto MD Work Phone: [facility] [employer] 08-16-2022 14:40-0400 SaO2% (BldA) [Mass fraction] 98 % Josesito Basurto MD Work Phone: [employer] 08-16-2022 14:40-0400 Systolic blood pressure 169 mm[Hg] Josesito Basurto MD Work Phone: [facility] [employer] [facility] 08-16-2022 11:25-0400 Body height 165.1 cm Josesito Basurto MD Work Phone: [facility] 08-16-2022 11:25-0400 Body mass index (BMI) [Ratio] 27.46 kg/m2 Josesito Basurto MD Work Phone: [employer] 08-16-2022 11:25-0400 Body weight 74.84 kg Josesito Basurto MD Work Phone: [employer] [facility] 07-12-2022 14:45-0500 Diastolic blood pressure 66 mm[Hg] Josesito Basurto MD Work Phone: [employer] [facility] 07-12-2022 14:45-0500 Respiratory rate 17 /min Josesito Basurto MD Work Phone: [employer] [facility] 07-12-2022 14:45-0500 SaO2% (BldA) [Mass fraction] 95 % Josesito Basurto MD Work Phone: [employer] [facility] 07-12-2022 14:45-0500 Systolic blood pressure 167 mm[Hg] Josesito Basurto MD Work Phone: [employer] [facility] 07-12-2022 14:40-0500 Body temperature 97.3 [degF] Josesito Basurto MD Work Phone: [employer] [facility] 07-12-2022 14:40-0500 Heart rate 56 /min Josesito Basurto MD Work Phone: [employer] 07-12-2022 11:50-0500 Body height 165.1 cm Josesito Basurto MD Work Phone: [employer] 07-12-2022 11:50-0500 Body mass index (BMI) [Ratio] 27.46 kg/m2 Josesito Bausrto MD Work Phone: [facility] [employer] 07-12-2022 11:50-0500 Body weight 74.84 kg Josesito Basurto MD Work Phone: [employer] 05-30-2022 19:00-0500 Body height 165.1 cm Татьяна Yolanda Other [employer] Other 05-30-2022 19:00-0500 Body mass index (BMI) [Ratio] 27.45 kg/m2 Татьяна Yolanda Other [employer] Other 05-30-2022 19:00-0500 Body temperature 98 [degF] Татьяна Yolanda Other [employer] Other 05-30-2022 19:00-0500 Body weight 74.84 kg Татьяна Yolanda Other [employer] Other 05-30-2022 19:00-0500 Diastolic blood pressure 74 mm[Hg] Татьяна Yolanda Other [employer] Other 05-30-2022 19:00-0500 Respiratory rate 18 /min Татьяна Yolanda Other [employer] Other 05-30-2022 19:00-0500 SaO2% (BldA) [Mass fraction] 98 % Татьяна Guerrero Other [employer] Other 05-30-2022 19:00-0500 Systolic blood pressure 154 mm[Hg] Татьяна Guerrero Other [employer] Other Encounters Encounter Date Encounter Type Care Provider Facility Start: 05-21-2024 End: 05-21-2024 ambulatory CLEMENTINA RAMOS Not Available Start: 05-21-2024 End: 05-21-2024 Bamboo flowsheet Clementina Ramos RATING SPECIALIST Work Phone: [facility] Start: 05-21-2024 End: 05-21-2024 Bamboo flowsheet Clementina Ramos RATING SPECIALIST Work Phone: [facility] Start: 05-21-2024 End: 05-21-2024 Postop follow up visit related to original px Clementina Ramos RATING SPECIALIST Work Phone: [facility] Comment on above: Closed fracture of d istal end of left fibula with routine healing, unspecified fracture morphology, subsequent encounter Start: 04-23-2024 End: 04-23-2024 Postop follow up visit related to original px Clementina Ramos RATING SPECIALIST Work Phone: [facility] Comment on above: Closed fracture of d istal end of left fibula with routine healing, unspecified fracture morphology, subsequent encounter Start: 04-23-2024 End: 04-23-2024 ambulatory CLEMENTINA RAMOS Not Available Start: 04-23-2024 End: 04-23-2024 Bamboo flowsheet Clementina Ramos RATING SPECIALIST Work Phone: [facility] Start: 04-23-2024 End: 04-23-2024 Bamboo flowschapo Ramos RATING SPECIALIST Work Phone: [facility] Start: 03-24-2024 End: 03-24-2024 Bamboo flowsheet Clementina Ramos RATING SPECIALIST Work Phone: [facility] Start: 03-24-2024 End: 03-24-2024 Bamboo flowsheet Clementina Ramos RATING SPECIALIST Work Phone: [facility] Start: 03-24-2024 End: 03-24-2024 Postop follow up visit related to original px Clementina Ramos RATING SPECIALIST Work Phone: [facility] Comment on above: Closed fracture of d istal end of left fibula with routine healing, unspecified fracture morphology, subsequent encounter Start: 03-24-2024 End: 03-24-2024 ambulatory CLEMENTINA RAMOS Not Available Start: 03-09-2024 End: 03-09-2024 Orders Only Sandi Nick Cayla RATING SPECIALIST Work Phone: [facility] Comment on above: 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 (Primary Dx) Start: 03-03-2024 End: 03-03-2024 Bamboo flowsheet Clementina Ramos RATING SPECIALIST Work Phone: [facility] Start: 03-03-2024 End: 03-03-2024 Bamboo flowsheet Clementina Ramos RATING SPECIALIST Work Phone: [facility] Start: 03-03-2024 End: 03-03-2024 ambulatory CLEMENTINA RAMOS Not Available Start: 03-03-2024 End: 03-03-2024 Postop follow up visit related to original px Clementina Ramos RATING SPECIALIST Work Phone: [facility] Comment on above: Closed fracture of d istal end of left fibula with routine healing, unspecified fracture morphology, subsequent encounter Start: 02-27-2024 End: 02-27-2024 Bamboo flowsheet Desiree Bhakta MD Work Phone: [facility] Start: 02-27-2024 End: 02-27-2024 Bamboo flowsheet Desiree Bhakta MD Work Phone: [facility] Start: 02-27-2024 End: 02-27-2024 Office outpatient visit 25 minutes Desiree Bhakta MD Work Phone: [facility] Comment on above: 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 Start: 02-27-2024 End: 02-27-2024 ambulatory DESIREE BHAKTA Not Available Start: 02-24-2024 End: 02-24-2024 Bamboo flowsheet Clementina Ramos RATING SPECIALIST Work Phone: [facility] Start: 02-24-2024 End: 02-24-2024 Bamboo flowsheet Clementina Ramos RATING SPECIALIST Work Phone: [facility] Start: 02-24-2024 End: 02-24-2024 ambulatory CLEMENTINA RAMOS Not Available Start: 02-24-2024 End: 02-24-2024 Office outpatient visit 15 minutes Clementina Ramos RATING SPECIALIST Work Phone: [facility] Comment on above: Closed fracture of d istal end of left fibula, unspecified fracture morphology, initial encounter (Primary Dx); Acute left ankle pain Start: 02-03-2024 End: 02-03-2024 Bamboo flowsheet Jr. Bola Doan Stepanic DO Work Phone: [facility] Start: 02-03-2024 End: 02-03-2024 Bamboo flowsheet Jr. Bola Doan Stepanic DO Work Phone: [facility] Start: 02-03-2024 End: 02-03-2024 Office outpatient visit 25 minutes Jr. Bola Guaman DO Work Phone: [facility] Comment on above: Primary osteoarthrit is of right knee (Primary Dx) Start: 02-03-2024 End: 02-03-2024 ambulatory BOLA BERRY Not Available Start: 01-20-2024 End: 01-20-2024 Bamboo flowsheet Jr. Bola Doan Stepanic DO Work Phone: [facility] Start: 01-20-2024 End: 01-20-2024 Bamboo flowsheet Jr. Bola Doan Stepanic DO Work Phone: [facility] Start: 01-20-2024 End: 01-20-2024 Office outpatient visit 25 minutes Jr. Bola Doan Stepanic DO Work Phone: [facility] Comment on above: Primary osteoarthrit is of right knee (Primary Dx); Acute pain of right knee Start: 01-20-2024 End: 01-20-2024 ambulatory JR., BOLA C STEPANIC Not Available Start: 12-22-2023 Refill Gato rodriges MD Work Phone: Hematology/Oncology Comment on above: Refill Request Start: 12-19-2023 End: 12-19-2023 ambulatory DESIREE BHAKTA Not Available Start: 12-12-2023 End: 12-12-2023 ambulatory DESIREE BHAKTA Not Available Start: 10-31-2023 End: 10-31-2023 ambulatory DESIREE BHAKTA Not Available Start: 09-25-2023 Refill Gato rodriges MD Work Phone: Hematology/Oncology Comment on above: Refill Request Start: 07-19-2023 End: 07-19-2023 ambulatory LAZ PORTILLO Facility:[facility] Start: 07-19-2023 End: 07-19-2023 ambulatory Chair [...] Start: 01-11-2023 End: 01-12-2023 ambulatory Allyssa Lopez APRN.STITCHER AROUND Work Phone: Hematology/Oncology Comment on above: Malignant neoplasm o f upper-outer quadrant of left breast in female, estrogen receptor positive (HCC) (Primary Dx); 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 therapy Osteopenia due to ca ncer therapy (Primary Dx); Malignant neoplasm of upper-outer quadrant of left breast in female, estrogen receptor positive (HCC) Start: 01-11-2023 End: 01-11-2023 Patient encounter procedure Allyssa Lopez APRN.STITCHER AROUND Work Phone: [facility] Start: 08-16-2022 End: 08-16-2022 ambulatory [facility] Start: 08-16-2022 End: 08-16-2022 Subsequent hospital visit by physician Josesito Basurto MD Work Phone: [facility] Start: 07-20-2022 End: 07-20-2022 ambulatory LAZ PORTILLO Facility:[facility] Start: 07-17-2022 Telephone encounter Gato olivares MD Work Phone: Hematology/Oncology Comment on above: Lab Orders Start: 07-12-2022 End: 07-12-2022 ambulatory [facility] Start: 07-12-2022 End: 07-12-2022 Subsequent hospital visit by physician Josesito Basurto MD Work Phone: [facility] Start: 07-05-2022 End: 07-10-2022 ambulatory [facility] Start: 07-03-2022 End: 07-04-[address] ALLYSSA LOPEZ Facility:[facility] Start: 05-30-2022 End: 05-30-2022 ambulatory Татьяна Guerrero Other [employer] Other Start: 05-30-2022 Office outpatient ne w 20 minutes Татьяна Guerrero [facility] Start: 02-20-2022 End: 02-21-2022 ambulatory GARO SCHNEIDER . Facility:[facility] Start: 01-28-2022 End: 01-28-[address] DOCTOR ESQUEDA Facility:[facility] Start: 09-28-2021 Telephone encounter [facility]ato [facility]ivares MD [facility] Comment on [facility]: Patient Update Start: 09-22-2021 Telephone encounter Gato olivares MD Work Phone: Hematology/Oncology Comment on above: Lab Orders Start: 11-29-2020 End: 11-29-2020 Subsequent hospital visit by physician Laz Portillo MD Work Phone: [facility] Start: 09-20-2020 End: 09-20-2020 Subsequent hospital visit by physician [facility] Rm [facility] Comment on above: Arrived Syncope, unspecified syncope type Hypertension, unspec ified type; Fatigue, unspecified type Start: 02-03-2020 End: 02-03-2020 Subsequent hospital visit by physician [facility] Rm [facility] Comment on above: Swelling of limb; Malignant neoplasm of upper-outer quadrant of left breast in female, estrogen receptor positive (HCC) Chronic fatigue; Cancer of breast, intraductal, left Start: 11-12-2019 End: 11-14-2019 Subsequent hospital visit by physician Xr Room 4 [facility] Radiology Comment on above: Rotator cuff arthrop athy of left shoulder Start: 07-31-2019 End: 08-02-2019 Subsequent hospital visit by physician [facility] Diag Mammo [facility] Mammography Comment on above: Abnormal mammogram Start: 01-30-2019 End: 02-01-2019 Subsequent hospital visit by physician [facility] Diag Mammo [facility] Mammography Comment on above: History of breast ca ncer Lump in female breas t Start: 12-26-2017 End: 12-29-2017 [facility] Procedures Date Procedure Procedure Detail Performing Clinician Start: 05-21-2024 Radex ankle complete minimum 3 views Clementina Ramos RATING SPECIALIST Work Phone: Start: 04-23-2024 Radex ankle complete minimum 3 views Clementina Ramos RATING SPECIALIST Work Phone: Start: 03-24-2024 Radex ankle complete minimum 3 views Clementina Ramos RATING SPECIALIST Work Phone: Start: 03-03-2024 Radex ankle complete minimum 3 views Clementina Ramos RATING SPECIALIST Work Phone: Start: 02-03-2024 Arthrocentesis aspir &/inj major jt/bursa w/o us Jr. Bola Guaman DO Work Phone: Start: 01-20-2024 Radiologic examinati on knee 1/2 views Jr. Bola Guaman DO Work Phone: Start: 11-29-2020 Cyanocobalamin vitamin b-12 Raul Swan [...] uni real t karla with image limited Sulaimandavid Bronson Work Phone: Start: 01-30-2019 Tomosynthesis, mammo screen Sulaiman Bronson Work Phone: Start: 06-26-2018 Colonoscopy Josesito Basurto MD Work Phone: Start: 12-26-2017 SURGICAL PATHOLOGY RANI PORTILLO Start: 12-26-2017 Diagnostic mammograp hy computer-aided detcj uni TRIPP PORTILLO Start: 12-26-2017 Bx breast w/device 1 st lesion stereotactic guid TRIPP PORTILLO Plan of Treatment Date Care Activity Detail Author Start: 06-26-2028 Colon cancer screen colonoscopy Colon cancer screen colonoscopy [place] Start: 06-26-2028 Screening for malignant neoplasm of colon [facility] Start: 07-18-2026 [facility] Start: 01-11-2026 DIABETES SCREEN DIABETES SCREEN [facility] Start: 09-20-2025 Lipid panel [facility] Start: 07-24-2024 End: 07-24-2024 ambulatory 07/24/2024 10:30 AM EDT [facility] Hematology/Oncology [address] [employer] [place] [address] [facility] Comment on above: [facility] Start: 07-24-2024 End: 07-24-2024 Follow-up encounter 07/24/2024 10:15 AM EDT Visit (SP) Office Hematology/Oncology [facility] [place] [address] Gato Cano MD [address] [place] [address] [place] [address] 6 month follow up with lab and prolia Hematology/Oncology Comment on above: 6 month follow up wi th lab and prolia Start: 07-24-2024 End: 07-24-2024 Patient encounter procedure 07/24/2024 10:00 AM EDT Office Visit [facility] [place] [address] 6 month follow up with lab and prolia [facility] Comment on above: 6 month follow up wi th lab and prolia Start: 07-18-2024 End: 08-17-2024 BD DXA TRABECULAR BONE SCORE (TBS) BD DXA TRABECULAR BONE SCORE (TBS) Radiology Routine Malignant neoplasm of upper-outer quadrant of left breast in female, estrogen receptor positive (HCC) Personal history of malignant neoplasm of breast Expected: 07/18/2024 (Approximate), Expires: 08/17/2024 [facility] Work Phone: Comment on above: Expected: 07/18/2024 (Approximate), Expires: 08/17/2024 Start: 07-18-2024 End: 10-17-2024 Cancer Ag 15-3 [Units/volume] in Serum or Plasma CA 15-3 BLD Lab Routine Malignant neoplasm of upper-outer quadrant of left breast in female, estrogen receptor positive (HCC) Personal history of malignant neoplasm of breast Expected: 07/18/2024 (Approximate), Expires: 10/17/2024 [facility] Work Phone: Comment on above: Expected: 07/18/2024 (Approximate), Expires: 10/17/2024 Start: 07-18-2024 End: 10-17-2024 Cancer Ag 27-29 [Units/volume] in Serum or Plasma CA 27.29 BLOOD Lab Routine Malignant neoplasm of upper-outer quadrant of left breast in female, estrogen receptor positive (HCC) Personal history of malignant neoplasm of breast Expected: 07/18/2024 (Approximate), Expires: 10/17/2024 [facility] Work Phone: Comment on above: Expected: 07/18/2024 (Approximate), Expires: 10/17/2024 Start: 07-18-2024 End: 10-17-2024 CBC W Auto Differential panel - Blood CBC + DIFF Lab Routine Malignant neoplasm of upper-outer quadrant of left breast in female, estrogen receptor positive (HCC) Personal history of malignant neoplasm of breast Expected: 07/18/2024 (Approximate), Expires: 10/17/2024 [facility] Work Phone: Comment on above: Expected: 07/18/2024 (Approximate), Expires: 10/17/2024 Start: 07-18-2024 End: 10-17-2024 Comprehensive metabolic 2000 panel - Serum or Plasma COMP METABOLIC PANEL Lab Routine Malignant neoplasm of upper-outer quadrant of left breast in female, estrogen receptor positive (HCC) Personal history of malignant neoplasm of breast Expected: 07/18/2024 (Approximate), Expires: 10/17/2024 [facility] Work Phone: Comment on above: Expected: 07/18/2024 (Approximate), Expires: 10/17/2024 Start: 07-18-2024 End: 08-17-2024 DXA Skeletal system.axial Views for bone density and vertebral fracture DXA-AXIAL SKELETON WITH VFA Radiology Routine Malignant neoplasm of upper-outer quadrant of left breast in female, estrogen receptor positive (HCC) Personal history of malignant neoplasm of breast Expected: 07/18/2024 (Approximate), Expires: 08/17/2024 [facility] Work Phone: Comment on above: Expected: 07/18/2024 (Approximate), Expires: 08/17/2024 Start: 07-18-2024 End: 08-17-2024 MG Breast Screening NGUYEN SCREENING Radiology Routine Personal history of malignant neoplasm of breast Breast screening Expected: 07/18/2024 (Approximate), Expires: 08/17/2024 [facility] Work Phone: Comment on above: Expected: 07/18/2024 (Approximate), Expires: 08/17/2024 Start: 07-02-2024 End: 07-02-2024 Patient encounter procedure 07/02/2024 1:15 PM EST Office Visit [facility] [address] [place] [address] Clementina Ramos, RATING SPECIALIST [address] [place] [address] [facility] Start: 05-28-2024 End: 05-28-2024 Patient encounter procedure 05/28/2024 1:40 PM EST Office Visit [facility] [address] [facility] [address] [place] [address] Desiree Bhakta MD [address] [facility] [address] [place] [address] [facility] Start: 05-21-2024 End: 05-21-2024 Patient encounter procedure 05/21/2024 2:00 PM EST Office Visit [facility] [address] [place] [phone] Clementina Ramos, RATING SPECIALIST [address] [place] [address] [facility] Start: 04-23-2024 End: 04-23-2024 Patient encounter procedure [facility] Comment on above: Closed fracture of d istal end of left fibula with routine healing, unspecified fracture morphology, subsequent encounter Start: 03-24-2024 End: 03-24-2024 Patient encounter procedure 03/24/2024 1:15 PM EST Office Visit [facility] [address] [facility] [address] [place] [phone] Clementina Ramos, RATING SPECIALIST [address] [place] [address] [facility] Start: 03-23-2024 DIABETES SCREEN DIABETES SCREEN [facility] Start: 03-16-2024 End: 03-16-2024 Patient encounter procedure 03/16/2024 1:15 PM EST Office Visit [facility] [address] [place] [phone] Jr. Bola Guaman DO [address] [facility] [address] [place] [address] [facility] Start: 03-12-2024 End: 03-12-2024 Patient encounter procedure 03/12/2024 1:40 PM EDT Office Visit [facility] [address] [place] [address] Desiree Bhakta MD [address] [place] [address] [facility] Start: 03-03-2024 End: 03-03-2024 Patient encounter procedure 03/03/2024 10:30 AM EDT Office Visit [facility] [address] [facility] [address] [place] [phone] Clementina Ramos, RATING SPECIALIST [address] [place], [place] [phone] [facility] Start: 02-27-2024 End: 02-27-2024 Patient encounter procedure [facility] Comment on above: Arrived Start: 02-03-2024 End: 02-03-2024 Patient encounter procedure [facility] Comment on above: Arrived Start: 01-20-2024 End: 01-20-2024 Patient encounter procedure 01/20/2024 8:30 AM EDT Office Visit [facility] [address] [place] [phone] Jr. Bola Guaman DO [address] [facility] [address] [place] [address] Arrived [facility] Comment on above: Arrived Start: 01-12-2024 BP CONTROLLED (<130/80) BP CONTROLLED (<130/80) [facility] Start: 01-12-2024 Influenza vaccination Influenza Vacc ine (#1) [facility] Start: 08-06-2023 Shingrix Vaccine (2 of 2) Shingrix Vaccine (2 of 2) [facility] Start: 07-26-2023 Depression Monitoring Depression [facility] Start: 07-21-2023 BP CONTROLLED (<130/80) BP CONTROLLED (<130/80) [facility] Start: 07-12-2023 End: 09-11-2023 CBC W Auto Differential panel - Blood CBC + DIFF Lab Routine Malignant neoplasm of upper-outer quadrant of left breast in female, estrogen receptor positive (HCC) 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 therapy Expected: 07/12/2023, Expires: 09/11/2023 [facility] Work Phone: Comment on above: Expected: 07/12/2023 , Expires: 09/11/2023 Start: 07-12-2023 End: 09-11-2023 Comprehensive metabolic 2000 panel - Serum or Plasma COMP METABOLIC PANEL Lab Routine Malignant neoplasm of upper-outer quadrant of left breast in female, estrogen receptor positive (HCC) 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 therapy Expected: 07/12/2023, Expires: 09/11/2023 [facility] Work Phone: Comment on above: Expected: 07/12/2023 , Expires: 09/11/2023 Start: 05-13-2023 Advance Directive Discussion Advance Directive Discussion [facility] Start: 05-13-2023 Behavioral Health Screening Behavioral Health Screening [facility] Start: 05-13-2023 Depression Assessment Depression Ass essment [facility] Start: 04-27-2023 Annual Wellness Visi t (AWV) Annual Wellness Visit (AWV) [facility] [employer] Start: 04-26-2023 Depression [facility] Start: 04-26-2023 DTaP/Tdap/Td vaccine (1 - Tdap) DTaP/Tdap/Td vaccine (1 - Tdap) [facility] Comment on above: Postponed from 02/21 (Patient Refused) Start: 03-03-2023 Screening for malignant neoplasm of breast Breast cancer screen [facility] Start: 01-11-2023 Covid-19 Vaccine (2022- season) Covid-19 Vaccine ( season) [facility] Start: 01-11-2023 Influenza vaccination INFLUENZA (#1) [facility] Start: 12-04-2022 Lipid panel [facility] [place] [place] Start: 12-04-2022 Lipid screen [facility] [place] [place] Start: 10-26-2022 End: 10-26-2022 Patient encounter procedure 10/26/2022 Office Visit Primary Care Laz Portillo MD [address] [place] [address] [facility] Start: 10-25-2022 COVID-19 Vaccine (3 - Booster for Moderna series) COVID-19 Vaccine (3 - Booster for Moderna series) [facility] Comment on above: Postponed from 09/20 (Patient Refused) Start: 09-24-2022 Pneumococcal 65+ yea rs Vaccine (1 - PCV) Pneumococcal 65+ years Vaccine (1 - PCV) [facility] Comment on above: Postponed from 02/21 (Patient Refused) Start: 08-16-2022 End: 08-16-2022 Xcapsl ctrc rmvl insj io lens prosth w/o ecp EYE CATARACT EMULSIFICATION IOL IMPLANT Cataract of right eye, unspecified cataract type 08/16/2022 1:34 PM EDT [facility] Start: 07-25-2022 Shingles vaccine (1 of 2) Shingles vaccine (1 of 2) [facility] Comment on above: Postponed from 02/21 (Patient Refused) Start: 07-25-2022 End: 07-25-2022 Patient encounter procedure 07/25/2022 Office Visit Primary Care Mary Katz, GENERAL FREIGHT AGENT - STITCHER AROUND [address] [place] [address] [facility] Start: 07-12-2022 End: 07-12-2022 Xcapsl ctrc rmvl insj io lens prosth w/o ecp EYE CATARACT EMULSIFICATION IOL IMPLANT Cataract, nuclear sclerotic, left eye 07/12/2022 1:33 PM EST [facility] Start: 05-13-2022 ADVANCE DIRECTIVE DISCUSSION ADVANCE DIRECTIVE DISCUSSION [facility] Start: 05-13-2022 DEPRESSION ASSESSMENT DEPRESSION ASS ESSMENT [facility] Start: 01-11-2022 Influenza vaccination INFLUENZA (Sea son Ended) [facility] Start: 10-02-2021 End: 09-23-2022 CBC W Auto Differential panel - Blood CBC + DIFF Lab Routine Malignant neoplasm of upper-outer quadrant of left breast in female, estrogen receptor positive (HCC) 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 therapy Expected: 10/02/2021 (Approximate), Expires: 09/23/2022 [facility] Work Phone: Comment on above: Expected: 10/02/2021 (Approximate), Expires: 09/23/2022 Start: 10-02-2021 End: 09-23-2022 Comprehensive metabolic 2000 panel - Serum or Plasma COMP METABOLIC PANEL Lab Routine Malignant neoplasm of upper-outer quadrant of left breast in female, estrogen receptor positive (HCC) 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 therapy Expected: 10/02/2021 (Approximate), Expires: 09/23/2022 [facility] [employer] Work Phone: Comment on above: Expected: 10/02/2021 (Approximate), Expires: 09/23/2022 Start: 10-02-2021 End: 12-02-2021 VITAMIN D 25 HYDROXY VITAMIN D 25 HYDROXY Lab Routine Malignant neoplasm of upper-outer quadrant of left breast in female, estrogen receptor positive (HCC) 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 therapy Expected: 10/02/2021 (Approximate), Expires: 12/02/2021 [facility] [employer] Work Phone: Comment on above: Expected: 10/02/2021 (Approximate), Expires: 12/02/2021 Start: 09-20-2021 Creatinine measurement Creatinine mo [facility] [employer] Phone: Start: 09-20-2021 Potassium monitoring Potassium monit [facility] [employer] Phone: Start: 05-13-2021 ADVANCE DIRECTIVE DISCUSSION ADVANCE DIRECTIVE DISCUSSION [facility] Start: 01-13-2021 End: 01-13-2021 Patient encounter procedure 01/13/2021 Office Visit Family Medicine Laz Portillo MD [address] [place] [address] [phone] Laz Goodman Start: 01-11-2021 Influenza vaccination Flu vaccine (# 1) [facility] Phone: Start: 10-28-2020 Adult depression screening assessment DEPRESSION SCREENING [facility] Start: 09-28-2020 End: 09-28-2020 Patient encounter procedure 09/28/2020 Office Visit Family Laz Pendleton MD [address] [place] [address] [phone] Laz Portillo [employer] Start: 09-20-2020 COVID-19 VACCINE (3 - Booster for Moderna series) COVID-19 VACCINE (3 - Booster for Moderna series) [facility] Start: 09-20-2020 COVID-19 VACCINE (3 - Moderna series) COVID-19 VACCINE (3 - Moderna series) [facility] Start: 08-23-2020 COVID-19 VACCINE (3 - Moderna risk series) COVID-19 VACCINE (3 - Moderna risk series) [facility] Start: 07-30-2020 Breast cancer screen Breast cancer s [place], [place] Start: 07-30-2020 Screening for malignant neoplasm of breast Breast cancer screen [place] Start: 07-27-2020 Annual Wellness Visi t (AWV) Annual Wellness Visit (AWV) [place] Start: 02-10-2020 End: 02-10-2020 Office Visit 02/10/2020 Office Visit Family Laz Pendleton MD [address] [place] [address] [phone] Laz Portillo MD [employer] Start: 02-03-2020 End: 02-03-2020 Office Visit 02/03/2020 Office Visit Family Laz Pendleton MD [address] [place] [address] [phone] Laz Portillo [employer] Start: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 MDP/PREDNISONE HX RT KNEE SURGERY ~20YRS AGO @ [facility] PAIN MEDIAL KNEE- +SWELLING- INCREASE PAIN WITH TWISTING/TURNING- SOME INSTABILITY- CAREFUL WITH STAIRS- +STIFFNESS WITH PROLONG SITTING-+IBUPROFEN- OCCASIONALLY ELEVATES HX RT CTR/RT RF TRIGGER RELEASE PER DR GUAMAN 12/2022 Lower Extremity Issue The symptoms are aggravated by movement and weight bearing. ALLERGIES: No Known Allergies HOME MEDICATIONS: Current [...] Oral, Daily Multiple Vitamin (Multi-Vitamin) tablet Oral PHYSICAL EXAM: Knee Musculoskeletal Exam Gait Antalgic: right Limp: right Inspection Leg length disparity: no discrepancy Right Erythema: none Effusion: moderate Edema: mild Ecchymosis: none Deformity: mild Alignment: varus Previous incision: no previous incision Palpation Right Increased warmth: none Masses: none Crepitus: patellofemoral and medial Tenderness: present Medial joint line: moderate Patella: mild Range of Motion Right Active extension: 5 Active flexion: 120 Strength Right Extension: 5/5. Flexion: 5/5. Instability Right Instability signs: none - stable Varus stress grade: normal Valgus stress grade: normal Pivot shift: normal Anterior drawer: normal Posterior drawer: normal Dial test: normal Quad active test: normal Medial Mary Anne test: negative Lateral Mary Anne test: negative Geena: negative Neurovascular Right Right knee neurovascular exam is normal. Patella reflex: 2/4 Pulses - DP: normal Dorsalis pedis: 2+ Pulses - PT: normal Posterior tibial: 2+ Capillary refill: brisk Special Signs Right Patellar compression: moderate Patellar apprehension: none Vitals: Body mass index is 28.98 kg/m . Tobacco Use: Low Risk (01/20/2024) Patient History Smoking Tobacco Use: Never Smokeless Tobacco Use: Never Passive Exposure: Not on file Alcohol Use: Not At Risk (04/30/2023) Received from [facility]C Frequency of Alcohol Consumption: Never Average Number of Drinks: Patient does not drink Frequency of Binge Drinking: Never IMAGING: XR knee 1 or 2 views right Imaging Result: X-rays AP and lateral of right knee showed severe varus deformity with vsmn-au-xini articulation to the medial joint line. There is flattening of the articular surfaces medially to the tibia plateau and femoral condyle. There is marginal osteophytic formation and subchondral sclerosis noted medially and the patellofemoral joint. There is no evidence of fracture or dislocation. Bony structures viewed showed appropriate ossification. Procedures Orders Placed This Encounter Procedures XR knee 1 or 2 views right Order Specific Question: Reason for exam: Answer: PAIN ASSESSMENT: ICD-10-CM 1. Primary osteoarthritis of right knee M17.11 2. Acute pain of right knee M25.561 XR knee 1 or 2 views right PLAN: We have answered all the patients questions and explained the patients condition, decision making and plan including the risks and benefits associated with said plan in layman''s terms in a language the patient could understand easily. If patient''s symptoms significantly worsen and they cannot get a hold of us or their family physician, we have recommended that the patient proceed to the nearest emergency department (room). Dr. Guaman obtained history and examined the patient, I am acting as scribe for Dr. Guaman/danielito, PLAN: We have discussed (R) knee xrays with patient at bedside. After examination of her right knee today we are recommending a cortisone injection to attempt to decrease the inflammation Patient states that she has been dx with glaucoma and is under the care of [facility] in [place], [place]. We will reach out to their office to determine if they are ok with patient proceeding with a cortisone injection prior to administering. We have dicussed her HEP and restrictions and will see her back in 2 weeks to reassess her right knee, may consider proceeding with the thought of a cortisone injection at that time. Bola Guaman D.O. documented in this encounter [facility] 07-19-2023 Note HNO ID: [id number] Author: GATO CANO MD Service: ? Author Type: Physician Type: Progress Notes Filed: 07/20/2023 13:40 Note Text: NAME: Natasha Ribeiro CLINIC NO.: [id number] DATE OF SERVICE: July 19, 2023 ([place]) Some elements in this clinic note that are critical to medical decision making have been carefully reviewed and included from a prior clinic note dated: January 11, 2023 (oJhn). Referring Provider: Dr. Laz Portillo Additional Clinicians [...] as return. Continue Vit D and Calcium gldq-gec-vdgztha. HPI: CASE HISTORY: Reverse Chronological Order 07/04/2023 - Bilateral Diagnostic Mammogram: ([place]) Findings: Diagnostic category 2--benign findings. 07/03/2022 - Bilateral diagnostic mammogram ([place]) Findings: Diagnostic category 2--benign findings. 03/03/2021 - DEXA scan ([place]) Osteopenic. 03/03/2021 - Bilateral diagnostic mammogram ([place]) Findings: Diagnostic category-benign findings. 03/02/2020 - Bilateral Diagnostic Mammogram ([place]) Findings: Diagnostic category 2-benign findings. 07/28/2018 - [facility] Normal. Updated Visit, July 19, 2023: Doing [...] she would lose coverage here at [facility]. Lost her last August 2021 He [...] denies any unusual (more content not included)... [facility] 07-19-2023 Instructions Gato Cano MD - 07/19/2023 10:47 AM EST Finish Arimidex when you run out Zolendronic acid today and then continue every 12 months. Mammogram in 12 months DXA in 12 months Follow up in 12 months labs same day. Exam same day as return. Continue Vit D and Calcium umxg-shg-ovzsyrp. documented in this encounter [facility] 07-19-2023 History of Present illness Narrative Images from the original note were not included. NAME: Natasha Ribeiro [facility] NO.: [id number] DATE OF SERVICE: July 19, 2023 ([place]) [...] as return. Continue Vit D and Calcium ojld-mab-stxkpqr. HPI: CASE HISTORY: Reverse Chronological Order 07/04/2023 - Bilateral Diagnostic Mammogram: ([place]) Findings: Diagnostic category 2--benign findings. 07/03/2022 - Bilateral diagnostic mammogram ([place]) Findings: Diagnostic category 2--benign findings. 03/03/2021 - DEXA scan ([place]) Osteopenic. 03/03/2021 - Bilateral diagnostic mammogram ([place]) Findings: Diagnostic category-benign findings. 03/02/2020 - Bilateral Diagnostic Mammogram ([place]) Findings: Diagnostic category 2-benign findings. 07/28/2018 - [facility] Density ([facility]) Normal. Updated Visit, July 19, [...] she would lose coverage here at [facility]. Lost her last August 2021 He [...] currently on arimidex. 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 ALLERGIES: ALLERGIES No Known Allergies MEDICATIONS: pdgrufiwejr-exfljivfl-bawyggjb (TRELEGY ELLIPTA) 200-62.5-25 mcg inhalation powder INHALE [...] DISCONTINUED: PHARMACY COMMUNICATION PATIENT ARRIVED, DISCONTINUED: zoledronic nz-yabyrztr-5.9NaCl 4 mg iv piggyback 100 mL (ZOMETA), [...] which included preparing to see the patient, dvzo-ni-kccd patient care, completing clinical documentation, performing a medically appropriate examination, counseling and educating the patient/family/caregiver, ordering medications, tests, or procedures, independently interpreting results (not separately reported), communicating results to the patient/family/caregiver, and care coordination (not separately reported). Gato Cano MD, CPE Hematology and Oncology Services Provided at: [place], [place] CC: Laz Caro MD [address] [place] [address] Dr. Sulaiman Bronson (General Surgery [facility]) documented in this encounter [facility] 01-11-2023 Note HNO ID: [id number] Author: Tessa Gao RN Service: ? Author Type: Registered Nurse Type: Progress Notes Filed: 01/11/2023 4:02 PM Note Text: [id number] Natasha Ribeiro [id number] [facility] 01-11-2023 Note HNO ID: [id number] Author: Allyssa Lopez APRN.BELEN Service: ? 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 Per medical genetics [...] as return. Continue Vit D and Calcium dfci-aup-nsfsnkq. INTERIM HISTORY: Updated Visit, January 11, 2023: [...] she would lose coverage here at [facility]. Lost her last August 2021 He [...] currently on arimidex. 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 [facility] 01-11-2023 History of Present illness Narrative [id number] Natasha Ribeiro [id number] documented in this encounter [facility] 01-11-2023 History of Present illness Narrative Images from the original note [...] as return. Continue Vit D and Calcium akbt-mva-owlszjo. INTERIM HISTORY: Updated Visit, January 11, 2023: Ntaasha Ribeiro returns for follow-up. She remains on [...] she would lose coverage here at [facility]. Lost her last August 2021 He [...] currently on arimidex. 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 Recommendations: Routine mammogram and clinical evaluation in 12 months. 03/03/2021 DEXA scan ([place]) Osteopenic. 03/03/2021 Bilateral diagnostic mammogram ([place]) Findings: Diagnostic category-benign findings. Recommendations: Routine mammogram and clinical evaluation in 12 months. 03/02/2020 Bilateral Diagnostic Mammogram ([place]) Findings: Diagnostic category 2-benign findings. Recommendations: Routine mammogram and clinical evaluation in 12 months. 07/28/2018 [facility] Normal. Allyssa Lopez APRN.[employer] AR[employer] Hematology and Oncology Services Provided at: [place], [place] CC: Dr. Sulaiman Bronson (General Surgery [facility]) I spent a total of 30 minutes on the date of the service which included preparing to see the patient, nivk-nx-cxnt patient care, completing clinical documentation, obtaining and/or reviewing separately obtained history, performing a medically appropriate examination, counseling and educating the patient/family/caregiver, ordering medications, tests, or procedures, independently interpreting results (not separately reported), and communicating results to the patient/family/caregiver. documented in this encounter [facility] 08-13-2022 Hospital Discharge instructions Josesito Basurto MD - 08/13/2022 12:55 PM EDT [...] Basurto if you have any problems: Office [phone] 8. Continue all your previous medications. You may use Aspirin, Tylenol, or Advil if needed. 9. You have an appointment in the office: 10. Please bring your drops into the office at your next visit. documented in this encounter [facility] Phone: 07-20-2022 Note HNO ID: [id number] Author: Gato Cano MD Service: ? Author [...] she would lose coverage here at [facility]. Lost her last August 2021 He [...] currently on arimidex. 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 [facility] 07-17-2022 Miscellaneous Notes Orders are . Please sign and/or add labs. Eve Bhakta documented in this encounter [facility] 07-05-2022 Hospital Discharge instructions Rosi Costa RN - 07/05/2022 1:16 [...] Basurto if you have any problems: Office [phone]. Continue all your previous medications. You [...] if your caregiver approves them. Only take volc-vqx-fqsshsm or prescription medicines for pain, discomfort, or [...] Document Reviewed: 08/27/2012 ExitCare Patient Information 2013 [email or web address]. documented in this encounter [facility] Phone: 05-30-2022 Evaluation note Encounter Date Diagnosis [...] no improvement in 2 to 3 days [employer] Other 05-24-2022 Miscellaneous Notes* Telephone Encounter - Laura Barber - 10/03/2021 11:29 AM EDT Spoke with patient and informed of Dr. Thomas recommendation patient was very happy with this and asked that we send her records to [facility] when Dr. Pinto is there so that she can follow up with him and she will see him in later december. Ángela can you please forward the patients records to [facility]. * Telephone Encounter - Laura Barber - 10/02/2021 10:00 AM EDT LVM for patient please inform patient of Dr. Thomas message give patient phone number to [employer] [phone]. * Telephone Encounter - Gustavo Pinto MD - 09/30/2021 5:37 PM EDT Happy to see her! Thanks. * Telephone Encounter - Gato Cano MD - 09/30/2021 10:35 AM EDT She should see Dr. Pinto when he starts in [place]. * Telephone Encounter - Laura Barber - [...] this case? Please advise [facility] Miscellaneous Notes* Telephone Encounter - Oumou Callahan MA - 09/22/2021 12:12 PM EDT Patient has an appt on 10/02/21. Would you like labs, if so place orders. Oumou Callahan MA [facility] NoteEducation Materials Pulmonary Medicine Bronchospasm, Adult Bronchospasm is when airways in the lungs get smaller. When this happens, it can be hard to breathe. You may cough. You may also make a whistling sound when you breathe (wheeze). Follow these instructions at home: Medicines ? Take vgit-xlt-kgqvaos and prescription medicines only as told by [...] provider. Document Revised: 04/11/2018 Document Reviewed: 05/02/2017 [employer] Patient Education ? 2020 [employer]. Asthma, Adult Asthma is a long-term (chronic) [...] pollute the air. These may include household space buyer, wood smoke, smog, or chemical odors. ? 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 +---- + + (more content not included)...[facility] Phone: 1(480) 692-860201-14-2021 Note [id number]01-08-2021 NotePatient Education Materials Follows:and Gynecology Urinary [...] these instructions at home: Medicines ? Take jcut-hto-pbzxqmd and prescription medicines only as told by [...] 10/15/2008 Document Revised: 04/16/2019 Document Reviewed: 11/06/2018 [employer] Patient Education ? 2019 [employer] [facility] * Diagnosis Syncope, unspecified syncope type documented in this encounter [facility] Phone: evaluation note* Diagnosis Hypertension, unspecified type Fatigue, unspecified type documented in this encounter [facility] Phone: evaluation note* Diagnosis Malignant neoplasm of upper-outer quadrant of left breast in female, estrogen receptor positive (HCC)- Primary 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 therapy Disorder of bone and cartilage, unspecified [facility]* Diagnosis Malignant neoplasm of upper-outer quadrant of left breast in female, estrogen receptor positive (HCC)- Primary documented in this encounter [facility] note* Diagnosis Malignant neoplasm of upper-outer quadrant of left breast in female, estrogen receptor positive (HCC)- Primary 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 therapy Disorder of bone and cartilage, unspecified [facility] Diagnosis 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 therapy- Primary Disorder of bone and cartilage, unspecified Malignant neoplasm of upper-outer quadrant of left breast in female, estrogen receptor positive (HCC) [facility]* Diagnosis 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 therapy- Primary Disorder of bone and cartilage, unspecified Malignant neoplasm of upper-outer quadrant of left breast in female, estrogen receptor positive (HCC) [facility] Diagnosis Personal history of malignant neoplasm of breast- Primary Malignant neoplasm of upper-outer quadrant of left breast in female, estrogen receptor positive (HCC) Breast screening Breast screening, unspecified [facility] Diagnosis Malignant neoplasm of upper-outer quadrant of left breast in female, estrogen receptor positive (HCC) [facility]* Diagnosis Malignant neoplasm of upper-outer quadrant of left breast in female, estrogen receptor positive (HCC) [facility]* Diagnosis Closed fracture of distal end of left fibula, unspecified fracture morphology, initial encounter- Primary Acute left ankle pain documented in this encounter [facility]* Diagnosis Mild cognitive impairment with memory loss Mild cognitive impairment, so stated Closed fracture of distal end of left fibula with routine healing, unspecified fracture morphology, subsequent encounter documented in this encounter [facility] Healthcare[facility] note* Diagnosis Closed fracture of distal end of left fibula with routine healing, unspecified fracture morphology, subsequent encounter documented in this encounter [facility] Healthcare[facility] note* Diagnosis Mild cognitive impairment with memory loss- Primary Mild cognitive impairment, so stated documented in this encounter [facility] Healthcare[facility] note* Diagnosis Closed fracture of distal end of left fibula with routine healing, unspecified fracture morphology, subsequent encounter documented in this encounter [facility] Healthcare[facility] note* Diagnosis Primary osteoarthritis of right knee- Primary Acute pain of right knee documented in this encounter [facility] Healthcare[facility] note* Diagnosis Primary osteoarthritis of right knee- Primary documented in this encounter [facility] Narrative - Reported* Type Description Date Medical History Asthma Medical History HTN (hypertension) Medical History Anxiety Medical History Glaucoma Surgical History hysterectomy Surgical History cholecystectomy Surgical History breast cancer [employer] Other Reason for referral (narrative)* Diagnostic Procedure Only (Routine) - Pending Review Specialty Diagnoses / Procedures [facility] To [facility] Diagnoses Malignant neoplasm of upper-outer quadrant of left breast in female, estrogen receptor positive (HCC) 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 therapy Procedures NGUYEN DIAGNOSTIC BILATERAL DIAGNOSTIC MAMMOGRAPHY COMPUTER-AIDED DETCJ Allyssa Mejia APRN.CNP [address] [place] [address] [place] [address] [facility] [address] [place] [address] Referral ID Status Reason Start Date Expiration Date Visits Requested Visits Authorized [id number] Pending Review Auto-Generat ed Referral 01/11/2023 02/10/2024 1 1 [facility] for referral (narrative)* Diagnostic Procedure Only (Routine) - Pending Review Specialty Diagnoses / Procedures [facility] Referred To Contact BR IMAGING Diagnoses Personal history of malignant neoplasm of breast Breast screening Procedures NGUYEN SCREENING SCREENING MAMMOGRAPHY BI 2-VIEW BREAST INC CAD Gato Cano MD [address] [place] [address] [place] [address] [facility] [address] [place] [phone] Referral ID Status Reason Start Date Expiration Date Visits Requested Visits Authorized [id number] Pending Review Auto-Generat ed Referral 07/18/2024 08/17/2024 1 1 * Diagnostic Procedure Only (Routine) - Pending Review Specialty Diagnoses / Procedures [facility] Referred To Contact XR IMAGING Diagnoses Malignant neoplasm of upper-outer quadrant of left breast in female, estrogen receptor positive (HCC) Personal history of malignant neoplasm of breast Procedures DXA-AXIAL SKELETON WITH VFA DXA BONE DENSITY STUDY AXIAL SKELETON Gato Cano MD [address] [place] [address] [place] [address] Xr Imaging [facility] Referral ID Status Reason Start Date Expiration Date Visits Requested Visits Authorized [id number] Pending Review Auto-Generat ed Referral 07/18/2024 08/17/2024 1 1 [facility] Summary Purpose Family History No Family History Records FoundNo Family History Records FoundNo Family History Records FoundNo Family History Records FoundNo Family History Records FoundNo Family History Records Found Advance Directives No Advanced Directives Records FoundDocuments on File Type Date Recorded 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 Advance Directives and Living Will Power of Senior Media Director Documents on File Type Date Recorded 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 Advance Directives and Living Will Power of Senior Media Director Documents on File Type Date Recorded 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 ACP-Advance Directive ACP-Power of Senior Media Director Documents on File Type Date Recorded 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 ACP-Advance Directive ACP-Power of Senior Media Director Latest Code Status on File Code Status [...] OR WO CAD LEFT Estiven Canela MD [address] [place] [address] Status Reason Specialty Diagnoses / Procedures Referre d By Contact Referred To Contact Closed Radiology Diagnoses Swelling of limb Malignant neoplasm of upper-outer quadrant of left breast in female, estrogen receptor positive (HCC) Procedures US DUP UPPER EXTREMITY LEFT VENOUS Laz Portillo MD [address] [place] [address] Status Reason Specialty Diagnoses / Procedures Referred By Contact Referred To Contact Authorized Radiology Diagnoses History of breast cancer Procedures NGUYEN DIGITAL DIAGNOSTIC W OR WO CAD BILATERAL Sulaiman Bronson MD [address] [place] [address] Status Reason Specialty Diagnoses / Procedures Referred By Contact Referred To Contact Pending Review Radiology Diagnoses Lump in female breast Procedures US BREAST LIMITED LEFT Thusay, Sulaiman M, MD [address] [place] [address] Status Reason Specialty Diagnoses / Procedures Referre d By Contact Referred To Contact Closed Diagnoses Syncope, unspecified syncope type Procedures ECHO 2D WO Color Doppler Complete Laz Portillo MD [address] [place] [address] Specialty Diagnoses / Procedures Referred By Contac t Referred To Contact Orthopaedic Surgery Diagnoses Primary osteoarthritis of right knee Procedures L Inj/Asp: R knee Jr. Bola Guaman DO [address] [address] Referral ID Status Reason Start Date Expiration Date Visits Re quested Visits Authorized [id number] Closed 02/03/2024 08/01/2024 1 1 Assessments Diagnosis Abnormal mammogram Abnormal mammogram, unspecified [...] 01/11/2023 3:15 PM EDT 650 mg zoledronic bk-ejccipyg-0.9NaCl 4 mg iv piggyback 100 mL (ZOMETA) 4 mg, INTRAVENOUS, Administer over 15 Minutes, ONCE, 1 dose, On Sat01/11/23 at 1530, Hazardous Potential Reproductive Risk Drug: Use appropriate PPE. New Bag/Syringe/Bottle 01/11/2023 3:43 PM EDT 4 mg Additional Source Comments INFORMATION SOURCE (unrecogn ized section and content) DATE CREATED AUTHOR 12/31/2017 [facility] DATE CREATED AUTHOR AUTHOR'S ORGANIZ ATION 03/31/2021 [facility] DATE CREATED AUTHOR AUTHOR'S ORGANIZ ATION 07/07/2022 [facility] DATE CREATED AUTHOR AUTHOR'S ORGANIZ ATION 08/18/2022 [facility] DATE CREATED AUTHOR AUTHOR'S ORGANIZ ATION 07/20/2023 [facility] DATE CREATED AUTHOR AUTHOR'S ORGANIZ ATION 05/26/2024 [facility] Special[facility] EPIC Reason for Visit (unrecogniz ed section and content) Status Reason Specialty Diagnoses / Procedures Referre d By Contact Referred To Contact Open Radiology Diagnoses Personal history of malignant neoplasm of breast Procedures HC MAMMO DGX UNILATERAL INCL CAD IF PERF Keegan Canela [address] [place] [address] [address] Status Reason Specialty Diagnoses / Procedures Referre d By Contact Referred To Contact Closed Radiology Diagnoses Swelling of limb Malignant neoplasm of upper-outer quadrant of left breast in female, estrogen receptor positive (HCC) Procedures US DUP UPPER EXTREMITY LEFT VENOUS Laz Protillo MD [address] [place] [address] Status Reason Specialty Diagnoses / Procedures Referre d By Contact Referred To Contact Open Radiology Diagnoses Malignant neoplasm of unspecified site of left female breast Procedures HC MAMMO DGX BILATERAL INCL CAD IF PERF Sulaiman Bronson MD [facility] [place] [address] [address] Status Reason Specialty Diagnoses / Procedures Referred By Contact Referred To Contact Pending Review Radiology Diagnoses Malignant neoplasm of unspecified site of left female breast Procedures HC US BREAST LTD Sulaiman Bronson MD [facility] [place] [address] [facility] [address] [place] [address] Status Reason Specialty Diagnoses / Procedures Referred By Contact Referred To Contact Authorized Cardiology Diagnoses Hypertension, unspecified type Syncope, unspecified syncope type Procedures 36[address] - IA Duplex Scan Extracranial, Luis M Laz Portillo MD [address] [place] [address] Status Reason Specialty Diagnoses / Procedures Referre d By Contact Referred To Contact Closed Diagnoses Syncope, unspecified syncope type Procedures ECHO 2D WO Color Doppler Complete Laz Portillo MD [address] [place] [address] Reason Comments Lab Orders Reason Comments Patient Update Specialty Diagnoses / Procedures Referred By Alex t Referred To Contact Diagnoses Cataract, nuclear sclerotic, left eye Cataract, nuclear sclerotic, left eye [H25.12] Procedures IA XCAPSL CTRC RMVL INSJ IO LENS PROSTH W/O ECP EYE CATARACT EMULSIFICATION IOL IMPLANT LEFT EYE PERIBULBAR ; Josesito Dawn MD [address] [facility] [address] [place] [address] [facility] [id number] [place] [phone] Referral ID Status Reason Start Date Expiration Date Visits Re quested Visits Authorized [id number] 1 1 Specialty Diagnoses / Procedures Referred By Contac t Referred To Contact Diagnoses Cataract of right eye, unspecified cataract type Cataract of right eye, unspecified cataract type [H26.9] Procedures IA XCAPSL CTRC RMVL INSJ IO LENS PROSTH W/O ECP EYE CATARACT EMULSIFICATION IOL IMPLANT Josesito Basurto MD [address] [facility] [address] [place] [address] [facility] [id number] [place] [phone] Referral ID Status Reason Start Date Expiration Date Visits Re quested Visits Authorized [id number] 1 1 Reason Comments Breast Cancer Specialty Diagnoses / Procedures Referred By Contac t Referred To Contact Diagnoses Malignant neoplasm of upper-outer quadrant of left breast in female, estrogen receptor positive (HCC) 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 therapy Procedures INJECTION, ZOLEDRONIC ACID, 1 MG Gato Cano MD [address] [facility] [address] Cory Treat Delfino [address] [facility] [place] [address] Referral ID Status Reason Start Date Expiration Date V isits Requested Visits Authorized [id number] Authorized 07/20/2022 01/19/2023 1 1 Referral ID Status Reason Start Date Expiration Date V isits Requested Visits Authorized [id number] Authorized 07/20/2022 01/22/2024 3 3 Reason Comments Breast Cancer Reason Comments Refill Request Reason Comments Pain Reason Comments Follow-up Reason Comments Pain Source Comments (unrecognize d section and content) In the event this informatio n is protected by the Federal Confidentiality of Alcohol and Drug Abuse Patient Records regulations: The Federal rules restrict any use of the information to criminally investigate or prosecute any alcohol or drug abuse patient.[facility] the event this information is protected by the Federal Confidentiality of Alcohol and Drug Abuse Patient Records regulations: The Federal rules restrict any use of the information to criminally investigate or prosecute any alcohol or drug abuse patient.[facility] the event this information is protected by the Federal Confidentiality of Alcohol and Drug Abuse Patient Records regulations: The Federal rules restrict any use of the information to criminally investigate or prosecute any alcohol or drug abuse patient.[facility] the event this information is protected by the Federal Confidentiality of Alcohol and Drug Abuse Patient Records regulations: The Federal rules restrict any use of the information to criminally investigate or prosecute any alcohol or drug abuse patient.[facility] the event this information is protected by the Federal Confidentiality of Alcohol and Drug Abuse Patient Records regulations: The Federal rules restrict any use of the information to criminally investigate or prosecute any alcohol or drug abuse patient.[facility] the event this information is protected by the Federal Confidentiality of Alcohol and Drug Abuse Patient Records regulations: The Federal rules restrict any use of the information to criminally investigate or prosecute any alcohol or drug abuse patient.[facility] the event this information is protected by the Federal Confidentiality of Alcohol and Drug Abuse Patient Records regulations: The Federal rules restrict any use of the information to criminally investigate or prosecute any alcohol or drug abuse patient.[facility] the event this information is protected by the Federal Confidentiality of Alcohol and Drug Abuse Patient Records regulations: The Federal rules restrict any use of the information to criminally investigate or prosecute any alcohol or drug abuse patient.[facility] the event this information is protected by the Federal Confidentiality of Alcohol and Drug Abuse Patient Records regulations: The Federal rules restrict any use of the information to criminally investigate or prosecute any alcohol or drug abuse patient.[facility] Care Teams (unrecognized sec tion and content) Loading Unit Operator Seating Relationship Specialty Start Date End Date Laz Portillo MD [address] [place] [address] PCP - General Family Practice 06/24/18 Loading Unit Operator Seating Relationship Specialty Start Date End Date Laz Portillo MD [address] [place] [address] PCP - General Family Practice 06/24/18 Loading Unit Operator Seating Relationship Specialty Start Date End Date Laz Portillo MD [address] [place] [address] PCP - General Family Medicine 11/12/19 Loading Unit Operator Seating Relationship Specialty Start Date End Date Laz Portillo MD [address] [place] [address] PCP - General Family Medicine 06/24/18 Loading Unit Operator Seating Relationship Specialty Start Date End Date Laz Portillo MD [address] [place] [address] PCP - General Family Medicine 11/12/19 Loading Unit Operator Seating Relationship Specialty Start Date End Date Laz Portillo MD [address] [place] [id number] PCP - General Family Medicine 06/24/18 Loading Unit Operator Seating Relationship Specialty Start Date End Date Laz Portillo MD [address] [place] [id number] PCP - General Family Medicine 06/24/18 Loading Unit Operator Seating Relationship Specialty Start Date End Date Laz Portillo MD [address] [place] [id number] PCP - General Family Medicine 06/24/18 Loading Unit Operator Seating Relationship Specialty Start Date End Date Laz Portillo MD [address] [place] [id number] PCP - General Family Medicine 06/24/18 Loading Unit Operator Seating Relationship Specialty Start Date End Date Laz Portillo MD [address] [place] [address] PCP - General Family Medicine 06/24/18 Loading Unit Operator Seating Relationship Specialty Start Date End Date Laz Portillo MD [address] [place] [address] PCP - General Family Medicine 10/01/22 Loading Unit Operator Seating Relationship Specialty Start Date End Date Laz Portillo MD [address] [place] [address] PCP - General Family Medicine 10/01/22 Loading Unit Operator Seating Relationship Specialty Start Date End Date Laz Portillo MD [address] [place] [id number] PCP - General Family Medicine 10/01/22 Loading Unit Operator Seating Relationship Specialty Start Date End Date Laz Portillo MD [address] [place] [address] PCP - General Family Medicine 10/01/22 Loading Unit Operator Seating Relationship Specialty Start Date End Date Laz Portillo MD [address] [place] [address] PCP - General Family Medicine 10/01/22 Loading Unit Operator Seating Relationship Specialty Start Date End Date Laz Portillo MD [address] [place] [address] PCP - General Family Medicine 10/01/22 Loading Unit Operator Seating Relationship Specialty Start Date End Date Laz Portillo MD [address] [place] [address] PCP - General Family Medicine 10/01/22 Loading Unit Operator Seating Relationship Specialty Start Date End Date Laz Portillo MD [address] [place] [address] PCP - General Family Medicine 10/01/22 Loading Unit Operator Seating Relationship Specialty Start Date End Date Laz Portillo MD [address] [place] [address] PCP - General Family Medicine 10/01/22 Scheduled [...] 07/12/22 at 1120, Until Chayo 07/12/22 at 1221, pre-op, One drop to operative eye(s) for 2 doses 5 minutes apart, prior to surgery, Pre-op (day of surgery) 1215 (Given - Provid er: Sheila Bell RN)1221 (Given - Provider: Sheila Bell RN) bupivacaine (PF) (MARCAINE) 0.5 % injection (CANCELED) PRN, Starting on Chayo 3/2/23 at 1347, Until Chayo 3//23 at 1416, Intra-op 1347 (Given - Provid er: Josesito Basurto MD - Comment: FOR BLOCK) chondroitin-sodium hyaluronate (DUOVISC) intra-ocular kit (CANCELED) PRN, Starting on Chayo 3/23 at 1352, Until Chayo 3//23 at 1416, Intra-op 1352 (Given - Provid [...] on Chayo 3//23 at 1413, Until Chayo 3//23 at 1416, Intra-op 1413 (Given - Provid er: Josesito Basurto MD) hyaluronidase human (HYLENEX) injection (CANCELED) PRN, Starting on Chayo 3 at 1347, Intra-op 1347 (Given - Provid er: Josesito Basurto MD - Comment: FOR BLOCK) ketorolac (ACULAR) 0.5 % ophthalmic solution 1 drop (COMPLETED) 1 drop, Left Eye, EVERY 5 MIN PRN, 3 doses, Starting on Chayo 3//23 at 1124, Until Chayo 3//23 at 1225, pre-op, To operative eye(s) for 3 doses, every 5 minutes, starting 20 minutes prior to surgery, Pre-op (day of surgery) 1216 (Given - Provid er: Sheila Bell RN)1221 (Given - Provider: Sheila Bell RN)1225 (Given - Provider: Sheila Bell RN) lidocaine 0.75%, EPINEPHrine 0.025% in BSS ophthalmic injection (CANCELED) PRN, Starting on Chayo 323 at 1347, Until Chayo 323 at 1416, Intra-op 1347 (Given - Provid er: Josesito Basurto MD) lidocaine PF 1 % injection 1 mL (COMPLETED) 1 mL, IntraDERmal, ONCE PRN, 1 dose, Starting on Chayo 3 at 1120, Until Chayo 323 at 1219, IV start, Pre-op (day of surgery) 1219 (Given - Provid er: Sheila Bell RN) lidocaine PF 4 % injection (CANCELED) PRN, Starting on Chayo 323 at 1347, Until Chayo 323 at 1416, Intra-op 1347 (Given - Provid er: Josesito Basurto MD - Comment: FOR BLOCK) xthbyrqb-saagqsynn-yqjtazzl ophthalmic ointment (CANCELED) PRN, Starting on Chayo [...] Sheila Bell RN)1211 (Given - Provider: Sheila A Ciampa, RN)1216 (Given - Provider: Sheila Bell RN) [...] (NoRateChange - Provider: Pacheco Mckeon APRN - PATTERN MAKER) PRN Medication Order 08/14/2022 08/15/2022 08/16/2022 0.9 [...] Josesito Basurto MD - Comment: PERIBULBAR BLOCK) hisaclui-awtiyebcd-lcvtxava ophthalmic ointment (CANCELED) PRN, Starting on Chayo [...] Action Action Date Dose Rate Site zoledronic us-qtyzjkjk-8.9NaCl 4 mg iv piggyback 100 mL (ZOMETA) [...] BE BASED ON THE PRIMARY CLINICAL RECORDS. [facility]. provides no warranty or guarantee of the accuracy or completeness of information in this document.
[2024-07-01 12:12] LABS: Basophils Absolute Auto 0.1 10^3/uL (0.0-0.1); Basophils Percent Auto 0.9 % (0.2-2.0); Eosinophils Absolute Auto 0.4 10^3/uL (0.0-0.7); Eosinophils Percent Auto 6.3 % (0.9-7.0); Hemoglobin 12.5 g/dL (12.0-16.0); Immature Granulocytes Abs Auto 0.03 10^3/uL (0.00-0.03); Immature Granulocytes Pct Auto 0.5 % (0.0-0.5); Lymphocytes Absolute Auto 1.9 10^3/uL (1.2-3.8); Lymphocytes Percent Auto 29.3 % (20.5-60.0); Mean Corpuscular HGB Conc 32.9 g/dL (29.9-35.2); Mean Corpuscular Hemoglobin 29.2 pg (26.7-34.0); Mean Corpuscular Volume 88.8 fL (81.0-99.0); Mean Platelet Volume 9.8 fL (9.5-13.5); Monocytes Absolute Auto 0.4 10^3/uL (0.3-0.8); Monocytes Percent Auto 6.2 % (1.7-12.0); Neutrophils Absolute Auto 3.7 10^3/uL (1.4-6.5); Neutrophils Percent Auto 56.8 % (43.0-75.0); Platelet Count 211 10^3/uL (150-450); Red Blood Count 4.28 10^6/uL (4.20-5.40); Red Cell Distribution Width 12.7 % (11.0-15.0); White Blood Count 6.5 10^3/uL (4.0-11.0)
[2024-07-01 13:16] LABS: Alanine Aminotransferase 41 U/L (14-59); Albumin Level 3.4 g/dL (3.4-5.0); Alkaline Phosphatase 69 U/L (46-116); Anion Gap 13.4; Aspartate Amino Transferase 21 U/L (15-37); BUN Creatinine Ratio 29.4; Bilirubin Total 0.9 mg/dL (0.2-1.0); Calcium 8.7 mg/dL (8.5-10.1); Carbon Dioxide 26.3 mmol/L (21.0-32.0); Chloride 104 mmol/L (98-107); Chol HDL Ratio 3.1; Cholesterol 236 mg/dL (<=200); Estimated GFR (African America >60 (>=60 mL/min/1.73m^2); Estimated GFR (Non-African Ame >60 (>=60 mL/min/1.73m^2); Globulin 3.5 g/dL; Glucose 81 mg/dL (74-106); HDL Cholesterol 76 mg/dL (40-60); Potassium 3.7 mmol/L (3.5-5.1); Sodium 140 mmol/L (136-145); Total Protein 6.9 g/dL (6.4-8.2); Triglycerides 134 mg/dL (<=150); VLDL CHOLESTEROL 26.8 mg/dL
[2024-07-01 13:23] LABS: TSH W/ REFLEX FT4 1.786 uIU/mL (0.358-3.740)
[2024-07-02 02:07] LABS: Vitamin B12 778 pg/mL (232-1245)
== END 2024-07-01 11:29 | disposition home or self-care (01) ==
LOC: LAB 11:29
PROVIDERS: PCP Family Medicine; Visit Provider Nurse Practitioner Family
DX: Z00.00 Encounter for general adult medical examination without abnormal findings (principal); C50.412 Malignant neoplasm of upper-outer quadrant of left female breast; Z17.0 Estrogen receptor positive status [ER+]; F32.A Depression, unspecified; M17.11 Unilateral primary osteoarthritis, right knee; R20.9 Unspecified disturbances of skin sensation; R53.82 Chronic fatigue, unspecified; Z87.81 Personal history of (healed) traumatic fracture; E78.2 Mixed hyperlipidemia; R41.3 Other amnesia
CPT/HCPCS: 36415; 80053; 80061; 82306; 82607; 82746; 84443; 85025

== ENCOUNTER 2024-07-07 14:01 | Outpatient (OUT) | payer MEDICARE, SELFPAY ==
--- NOTE | 2024-07-07 14:08 | MM_ITS ---
Patient Name: NU RIBEIRO MR#: [id number] : 1950 Exam Date: 07/07/2024 Ordering Doctor: DR. AALIYAH CANO M.D. RADIOLOGY REPORT PROCEDURE: MM TOMOSYNTHESIS SCREENING BI COMPARISON: MM TOMOSYNTHESIS DIAGNOSTIC BI, 07/04/2023. MG MAMM ALISON DIAG W CAD, 07/03/2022. MG MAMM DIAGNOSTIC 3D ALISON CAD, 03/03/2021. MAMMO LT DX, 05/29/2018. INDICATIONS: Screening, History Breast Cancer Calculator Name NCI Breast Cancer Risk Assessment Tool 5 Year Breast Cancer Risk Not Reported. Lifetime Breast Cancer Risk Not Reported. Personal Breast Cancer No Personal Ovarian Cancer No Treatments None Family Cancers None LOCATION: [facility] BREAST COMPOSITION: There are scattered areas of fibroglandular density. FINDINGS: LEFT BREAST: No significant suspicious finding. BENIGN-APPEARING CALCIFICATIONS ARE PRESENT IN THE LEFT BREAST. THERE IS POSTSURGICAL SCARRING IN THE LEFT BREAST. RIGHT BREAST: No significant suspicious finding. BENIGN-APPEARING CALCIFICATIONS ARE PRESENT IN THE RIGHT BREAST. DIAGNOSTIC CATEGORY 2--BENIGN FINDING. NO CHANGE FROM COMPARISON. RECOMMENDATIONS: ROUTINE MAMMOGRAM AND CLINICAL EVALUATION IN 12 MONTHS. PLEASE NOTE: A NORMAL MAMMOGRAM DOES NOT EXCLUDE THE POSSIBILITY OF BREAST CANCER. A CLINICALLY SUSPICIOUS PALPABLE LUMP SHOULD BE BIOPSIED. Dictated by: Roland Pearce MD on 07/07/2024 at 15:37 Approved by: Roland Pearce MD on 07/07/2024 at 15:41
== END 2024-07-07 14:02 | disposition home or self-care (01) ==
LOC: MAMMO 14:02
PROVIDERS: PCP Family Medicine; Visit Provider Internal Medicine Hematology & Oncology
DX: Z12.31 Encounter for screening mammogram for malignant neoplasm of breast (principal); Z85.3 Personal history of malignant neoplasm of breast; M81.0 Age-related osteoporosis without current pathological fracture
CPT/HCPCS: 77063; 77067; 77080